=== PATIENT | male | born 1955 | race Caucasian/White ===

== ENCOUNTER 2024-11-10 11:16 | Outpatient (REF) | payer OTHER, SELFPAY ==
[2024-11-10 11:21] LABS: MANUAL DIFF FLAG NO
[2024-11-10 11:31] LABS: Basophils Percent Auto 0.7 % (0-2); Eosinophils Absolute Auto 0.1 X10*3/uL (0.0-0.4); Eosinophils Percent Auto 2.3 % (0-4); Hematocrit 34.3 % (42.0-52.0); Hemoglobin 10.8 g/dl (14.0-18.0); Imm Gran Abs Auto 0.01 X10*3/uL (0.00-0.03); Imm Gran Pct Auto 0.2 % (0.0-0.4); Lymphocytes Percent Auto 17.7 % (20-40); Mean Corpuscular HGB Conc 31.5 g/dl (31.0-36.0); Mean Corpuscular Hemoglobin 23.9 pg (27.0-33.0); Mean Corpuscular Volume 76.1 fL (80.0-98.0); Mean Platelet Volume 10.2 fL (9.4-12.4); Monocytes Absolute Auto 0.6 X10*3/uL (0.1-1.2); Monocytes Percent Auto 11.4 % (2-11); Neutrophils Absolute Auto 3.8 x10*3/uL (2.0-8.3); Neutrophils Percent Auto 67.7 % (45-73); Platelet Count 320 X10*3/uL (160-400); Red Blood Count 4.51 X10*6/uL (4.60-5.80); Red Cell Distribution Width 14.3 % (11.0-16.0); White Blood Count 5.6 X10*3/uL (4.8-10.8)
[2024-11-10 11:41] LABS: Estimated Average Glucose 151 mg/dL; Hemoglobin A1C 143.5164 umol/L; Hemoglobin A1c % 6.9 % (<6.0); Total Hemoglobin (HGBA1C) 2781.7839 umol/L
[2024-11-10 12:31] LABS: Parathyroid Hormone Intact 57.7 pg/mL (8.7-77.1)
--- OUTSIDE RECORDS SUMMARY | 2024-11-10 12:34 | XMS_ITS | Encounter Summary ---
Author Organization [facility], Address [address] [place] [phone] Phone Care Team Providers Care Director Of Entertainment Name Role Phone Tennille Linton NP Primary Care Provider + Encounter Details Date Type Department Care Team (Late st Contact Info) Description 05/26/2024 Documentation Only [facility], [address] [facility] [place] [address] [place] [address] [place] [phone] Social History Tobacco Use Types Packs/Day Years Used Date Smoking Tobacco: Never Alcohol Use Standard Drinks/Week Comments No 0 (1 standard drink = 0.6 oz pur e alcohol) Sex and Gender Information Value Date Recorded Sex Assigned at Not on file Legal Sex Male 4:34 PM EST Gender Identity Not on file Sexual Orientation Not on file documented as of this encounter Plan of Treatment Upcoming Encounters Date Type Department Care Team (Late st Contact Info) Description 11/17/2024 10:00 AM EDT Office Visit [facility] [address] [facility] [place] [address] Andrey Phan MD [address] [facility] [place] [address] 12/02/2024 11:30 AM EDT Office Visit [facility] [address] [facility] [place] [address] Andrey Phan MD [address] [facility] [place] [address] documented as of this encounter Visit Diagnoses Not on filedocumented in this encounter Care Teams Director Of Entertainment Relationship Specialty Start Date End Date Tennille Linton NP [address] [place] [phone] PCP - General Nurse Practitioner 08/07/23 documented as of this encounter
--- OUTSIDE RECORDS SUMMARY | 2024-11-10 12:34 | XMS_ITS | Encounter Summary ---
Author Organization [facility], Address [address] [place] [phone] Phone Care Team Providers Care Caster Operator Name Role Phone Tennille Linton NP Primary Care Provider + Encounter Details Date Type Department Care Team (Late st Contact Info) Description 04/21/2024 Documentation Only [facility], [address] [facility] [place] [address] [place] [address] [place] [phone] Social History Tobacco Use Types Packs/Day [...] Visit [facility] [address] [facility] [facility] [place] [address] Andrey Phan MD [address] [facility] [place] [address] 12/02/2024 11:30 AM EDT Office Visit [facility] [address] [facility] [place] [address] Andrey Phan MD [address] [facility] [place] [address] documented as of this encounter Visit Diagnoses Not on filedocumented in this encounter Care Teams Caster Operator Relationship Specialty Start Date End Date Tennille Linton NP [address] [place] [phone] PCP - General Nurse Practitioner 08/07/23 documented as of this encounter
--- OUTSIDE RECORDS SUMMARY | 2024-11-10 12:34 | XMS_ITS | Encounter Summary ---
Author Organization [facility], Address [address] [place] [phone] Phone Care Team Providers Care Shroud Line Tier Name Role Phone Tennille Linton NP Primary Care Provider + Encounter Details Date Type Department Care Team (Late st Contact Info) Description 04/27/2024 Documentation Only [facility], [address] [facility] [place] [address] [place] [address] [place] [phone] Social History Tobacco Use Types Packs/Day [...] Visit [facility] [address] [facility] [place] [address] Andrey Phan MD [address] [facility] [place] [address] 12/02/2024 11:30 AM EDT Office Visit [facility] [address] [facility] [place] [address] Andrey Phan MD [address] [facility] [place] [address] documented as of this encounter Visit Diagnoses Not on filedocumented in this encounter Care Teams Shroud Line Tier Relationship Specialty Start Date End Date Tennille Linton NP [address] [place] [phone] PCP - General Nurse Practitioner 08/07/23 documented as of this encounter
--- OUTSIDE RECORDS SUMMARY | 2024-11-10 12:34 | XMS_ITS | Encounter Summary ---
Author Organization [facility] [place], Address [address] [place] [phone] Phone Care Team Providers Care Logistics Engineering Manager Name Role Phone Tennille Linton NP Primary Care Provider + Encounter Details Date Type Department Care Team (Late st Contact Info) Description 06/04/2024 Documentation Only [facility], [address] [facility] [place] [address] [place] [address] [place] [phone] Social History Tobacco Use Types Packs/Day [...] Visit [facility] [place] [address] [facility] [place] [address] Andrey Phan MD [address] [facility] [place] [address] 12/02/2024 11:30 AM EDT Office Visit [facility] [address] [facility] [place] [address] Andrey Phan MD [address] [facility] [place] [address] documented as of this encounter Visit Diagnoses Not on filedocumented in this encounter Care Teams Logistics Engineering Manager Relationship Specialty Start Date End Date Tennille Linton NP [address] [place] [phone] PCP - General Nurse Practitioner 08/07/23 documented as of this encounter
--- OUTSIDE RECORDS SUMMARY | 2024-11-10 12:35 | XMS_ITS | Encounter Summary ---
Author Organization [facility], Address [address] [phone] Phone Care Team Providers Care Clinical Research Spec Name Role Phone Tennille Linton NP Primary Care Provider + Reason for Visit * Reason Comments Med Refill Encounter Details Date Type Department Care Team (Late st Contact Info) Description 06/13/2020 Refill [facility] [address] [place] [address] Denise Isbell PA Social History Tobacco Use Types Packs/Day Years [...] Visit [facility] [address] [place] [phone] Andrey Phan MD [address] [place] [address] [place] [phone] 12/02/2024 11:30 AM EDT Office Visit [facility] [place] [address] [place] [phone] Andrey Phan MD [address] [place] [address] documented as of this encounter Visit Diagnoses Not on filedocumented in this encounter Care Teams Clinical Research Spec Relationship Specialty Start Date End Date Tennille Linton NP [address] [place] [phone] PCP - General Nurse Practitioner 08/07/23 documented as of this encounter
--- OUTSIDE RECORDS SUMMARY | 2024-11-10 12:35 | XMS_ITS | Encounter Summary ---
Author Organization [facility], Address [address] [phone] Phone Care Team Providers Care Envelope Folder Name Role Phone Tennille Linton NP Primary Care Provider + Reason for Visit * Reason Comments Med Refill Encounter Details Date Type Department Care Team (Late st Contact Info) Description 06/08/2022 Refill [facility], [address] [facility] [place] [address] Andrey Phan MD [address] [place] [address] [place] [address] Social History Tobacco Use Types Packs/Day Years [...] Visit [facility] [address] [facility] [place] [address] Andrey Phan MD [address] [facility] [place] [address] 12/02/2024 11:30 AM EDT Office Visit [facility] [address] [place] [address] Andrey Phan MD [address] [place] [address] [place] [address] documented as of this encounter Visit Diagnoses Not on filedocumented in this encounter Care Teams Envelope Folder Relationship Specialty Start Date End Date Tennille Linton NP [address] [place] [phone] PCP - General Nurse Practitioner 08/07/23 documented as of this encounter
--- OUTSIDE RECORDS SUMMARY | 2024-11-10 12:35 | XMS_ITS | Encounter Summary ---
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; Unspecified sequelae of unspecified cerebrovascular disease; Kidney transplant status Social History Tobacco Use Types Packs/Day Years Used Date Smoking Tobacco: Never Assessed Sex and Gender Information Value Date Recorded Sex Assigned at Not on file Legal Sex Male 7:48 PM EST Gender Identity Not on file Sexual Orientation Not on file documented as of this encounter Plan of Treatment Not on file documented as of this encounter Procedures Procedure Name Priority Date/Time Associated Diagnosis Comments TACROLIMUS LEVEL Routine 05/06/2024 6:56 AM EST Heart failure, unspecified (CMS/HCC) Anemia, unspecified 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 Kidney transplant status COMPLETE BLOOD COUNT Routine 05/06/2024 6:56 AM EST Heart failure, unspecified (CMS/HCC) Anemia, unspecified 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 (months) ?Trough Level (ng/mL) Kidney ? Up to 3 ?7.0 - 20.0 ? >3 ? 5.0 - 15.0 Heart ?Up to 3 ?10.0 - 20.0 ? >3 ? 5.0 - 15.0 Liver ?Up to 12 ? 5.0 - 20.0 Tacrolimus determined by a LC-MS/MS procedure. If applicable, any drug confirmation testing reported here was developed and the performance characteristics determined by [facility]. This confirmation testing has not been cleared or approved by the FDA. The laboratory is regulated under CLIA as qualified to perform high-complexity testing. This test is used for patient testing purposes. It should not be regarded as investigational or for research. Test performed at [facility], [address], [place], [place] ??[address] ? [phone] Brittanie Horan MD, PhD - Joint Supervisor Blood Venous blood specimen / Unknown Venipuncture / Unknown 05/06/2024 6:56 AM EST 05/06/2024 9:44 AM EST Michelle Rucker MD LAB BLOOD ORDERABLES Fin al Result [facility] [address] [place] [address] * (ABNORMAL) Comprehensive metabolic panel (05/06/2024 6:56 AM EST) Sodium 137 133 - 145 mmol/L LAB CHEMISTRY METHOD 05/06/2024 12:[address] [facility] Potassium 4.6 3.5 - 5.5 mmol/L LAB CHEMISTRY METHOD 05/06/2024 12:[address] [facility] Chloride 105 96 - 110 mmol/L LAB CHEMISTRY METHOD 05/06/2024 12:[address] [facility] CO2 21 21 - 32 mmol/L LAB CHEMISTRY METHOD 05/06/2024 12:[address] [facility] Anion Gap 11 3 - 11 LAB CHEMISTRY METHOD 05/06/2024 12:[address] [facility] Glucose 246(H) 70 - 100 mg/dL LAB CHEMISTRY METHOD 05/06/2024 12:[address] [facility] BUN 24 5 - 25 mg/dL LAB CHEMISTRY METHOD 05/06/2024 12:[address] [facility] Creatinine 1.63(H) 0.70 - 1.30 mg/dL LAB CHEMISTRY METHOD 05/06/2024 12:[address] [facility] eGFR 46(L) >=60 mL/min/1. 73m2 LAB CHEMISTRY METHOD 05/06/2024 12:[address] [facility] Comment:Calculation based on the??Chronic Kidney Disease Epidemiology Collaboration (CKD-EPI) equation refit??without adjustment for race. BUN/Creatinine Ratio 14.7 LAB CHEMISTRY METHOD 05/06/2024 12:[address] [facility] Calcium 9.7 8.5 - 10.5 mg/dL LAB CHEMISTRY METHOD 05/06/2024 12:[address] [facility] AST (SGOT) 19 10 - 42 unit/L LAB CHEMISTRY METHOD 05/06/2024 12:[address] [facility] ALT (SGPT) 12 10 - 60 unit/L LAB CHEMISTRY METHOD 05/06/2024 12:[address] [facility] Alkaline Phosphatase 61 42 - 121 unit/L LAB CHEMISTRY METHOD 05/06/2024 12:[address] [facility] Total Protein 7.1 6.0 - 8.0 g/dL LAB CHEMISTRY METHOD 05/06/2024 12:[address] [facility] Albumin 3.3 3.2 - 5.0 g/dL LAB CHEMISTRY METHOD 05/06/2024 12:[address] [facility] Total Bilirubin 0.8 0.0 - 1.4 mg/dL LAB CHEMISTRY METHOD 05/06/2024 12:[address] [facility] Blood Venous blood specimen / Unknown Venipuncture / Unknown 05/06/2024 6:56 AM EST 05/06/2024 9:44 AM EST us Michelle Rucker MD LAB BLOOD ORDERABLES Fin al Result [facility] [address] [place] [address], * (ABNORMAL) Complete blood count (05/06/2024 6:56 AM EST) WBC 13.5(H) 4.8 - 10.8 K/mcL LAB HEMETOLOGY METHOD 05/06/2024 11:[address] [facility] RBC 4.50 4.50 - 5.50 M/mcL LAB HEMETOLOGY METHOD 05/06/2024 11:[address] [facility] Hemoglobin 12.4(L) 13.5 - 17.5 g/dL LAB HEMETOLOGY METHOD 05/06/2024 11:[address] [facility] Hematocrit 37.8(L) 42.0 - 54.0 % LAB HEMETOLOGY METHOD 05/06/2024 11:[address] [facility] MCV 83.8 79.0 - 98.0 FL LAB HEMETOLOGY METHOD 05/06/2024 11:[address] [facility] MCH 27.5 27.0 - 32.0 pcg LAB HEMETOLOGY METHOD 05/06/2024 11:[address] [facility] MCHC 32.8 32.0 - 37.0 g/dL LAB HEMETOLOGY METHOD 05/06/2024 11:[address] [facility] RDW 12.9 11.0 - 15.0 % LAB HEMETOLOGY METHOD 05/06/2024 11:[address] [facility] Platelets 248 130 - 400 K/mcL LAB HEMETOLOGY METHOD 05/06/2024 11:[address] [facility] MPV 11.0 7.0 - 11.0 FL LAB HEMETOLOGY METHOD 05/06/2024 11:[address] [facility] NRBC 0.0 <1.0 % LAB HEMETOLOGY METHOD 05/06/2024 11:[address] [facility] NRBC Absolute 0.00 <0.10 K/mcL LAB HEMETOLOGY METHOD 05/06/2024 11:[address] 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 Diff Rule-Out Infection 08/14/2024 08/13/2024 0 08/14/2024 11:06 AM EST documented as of this encounter Care Teams Garment Examiner Relationship Specialty Start Date End Date Michelle Rucker MD [address] [place] [phone] PCP - General Family Medicine 05/06/24 documented as of this encounter
--- OUTSIDE RECORDS SUMMARY | 2024-11-10 12:35 | XMS_ITS | Encounter Summary ---
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 Social History Tobacco Use Types Packs/Day Years [...] Procedure Name Priority Date/Time Associated Diagnosis Comments COMPLETE BLOOD COUNT Routine 05/08/2024 6:16 AM EST Kidney transplant status 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 COMPREHENSIVE METABOLIC PANEL Routine 05/08/2024 6:16 AM EST Kidney transplant status 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 documented in this encounter Results * (ABNORMAL) Comprehensive metabolic panel (05/08/2024 6:16 AM EST) Sodium 136 133 - 145 mmol/L LAB CHEMISTRY METHOD 05/08/2024 9:21 AM EST [facility] Potassium 4.4 3.5 - 5.5 mmol/L LAB CHEMISTRY METHOD 05/08/2024 9:21 AM [facility] Chloride 105 96 - 110 mmol/L LAB CHEMISTRY METHOD 05/08/2024 9:21 AM [facility] CO2 23 21 - 32 mmol/L LAB CHEMISTRY METHOD 05/08/2024 9:21 AM [facility] Anion Gap 8 3 - 11 LAB CHEMISTRY METHOD 05/08/2024 9:21 AM [facility] Glucose 183(H) 70 - 100 mg/dL LAB CHEMISTRY METHOD 05/08/2024 9:21 AM [facility] BUN 27(H) 5 - 25 mg/dL LAB CHEMISTRY METHOD 05/08/2024 9:21 AM [facility] Creatinine 1.82(H) 0.70 - 1.30 mg/dL LAB CHEMISTRY METHOD 05/08/2024 9:21 AM [facility] eGFR 40(L) >=60 mL/min/1. 73m2 LAB CHEMISTRY METHOD 05/08/2024 9:21 AM [facility] Comment:Calculation based on the??Chronic Kidney Disease Epidemiology Collaboration (CKD-EPI) equation refit??without adjustment for race. BUN/Creatinine Ratio 14.8 LAB CHEMISTRY METHOD 05/08/2024 9:21 AM [facility] Calcium 9.6 8.5 - 10.5 mg/dL LAB CHEMISTRY METHOD 05/08/2024 9:21 AM [facility] AST (SGOT) 20 10 - 42 unit/L LAB CHEMISTRY METHOD 05/08/2024 9:21 AM [facility] ALT (SGPT) 10 10 - 60 unit/L LAB CHEMISTRY METHOD 05/08/2024 9:21 AM [facility] Alkaline Phosphatase 52 42 - 121 unit/L LAB CHEMISTRY METHOD 05/08/2024 9:21 AM [facility] Total Protein 6.4 6.0 - 8.0 g/dL LAB CHEMISTRY METHOD 05/08/2024 9:21 AM [facility] Albumin 2.7(L) 3.2 - 5.0 g/dL LAB CHEMISTRY METHOD 05/08/2024 9:21 AM [facility] Total Bilirubin 0.5 0.0 - 1.4 mg/dL LAB CHEMISTRY METHOD 05/08/2024 9:21 AM [facility] Blood Venous blood specimen / Unknown Venipuncture / Unknown 05/08/2024 6:16 AM EST 05/08/2024 8:37 AM EST us Michelle Rucker MD LAB BLOOD ORDERABLES Fin al Result [facility] [address] [place] [address], * (ABNORMAL) Complete blood count (05/08/2024 6:16 AM EST) WBC 9.8 4.8 - 10.8 K/mcL LAB HEMETOLOGY METHOD 05/08/2024 8:53 AM [facility] RBC 4.00(L) 4.50 - 5.50 M/mcL LAB HEMETOLOGY METHOD 05/08/2024 8:53 AM [facility] Hemoglobin 11.0(L) 13.5 - 17.5 g/dL LAB HEMETOLOGY METHOD 05/08/2024 8:53 AM [facility] Hematocrit 34.0(L) 42.0 - 54.0 % LAB HEMETOLOGY METHOD 05/08/2024 8:53 AM [facility] MCV 85.4 79.0 - 98.0 FL LAB HEMETOLOGY METHOD 05/08/2024 8:53 AM [facility] MCH 27.6 27.0 - 32.0 pcg LAB HEMETOLOGY METHOD 05/08/2024 8:53 AM EST [facility] MCHC 32.4 32.0 - 37.0 g/dL LAB HEMETOLOGY METHOD 05/08/2024 8:53 AM EST [facility] RDW 12.8 11.0 - 15.0 % LAB HEMETOLOGY METHOD 05/08/2024 8:53 AM EST [facility] Platelets 235 130 - 400 K/mcL LAB HEMETOLOGY METHOD 05/08/2024 8:53 AM EST [facility] MPV 10.8 7.0 - 11.0 FL LAB HEMETOLOGY METHOD 05/08/2024 8:53 AM EST [facility] NRBC 0.0 <1.0 % LAB HEMETOLOGY METHOD 05/08/2024 8:53 AM EST [facility] NRBC Absolute 0.00 <0.10 K/mcL LAB HEMETOLOGY METHOD 05/08/2024 8:53 AM EST [facility] Blood Venous blood specimen / Unknown Venipuncture / Unknown 05/08/2024 6:16 AM EST 05/08/2024 8:37 AM EST us Michelle Rucker MD LAB BLOOD ORDERABLES Fin al Result [facility] [address] [place] [address], documented in this encounter Visit Diagnoses Diagnosis Kidney transplant status 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 Diff Rule-Out Infection 08/14/2024 08/13/2024 0 08/14/2024 11:06 AM EST documented as of this encounter Care Teams General Engineering Teacher Relationship Specialty Start Date End Date Michelle Rucker MD [address] [phone] PCP - General Family Medicine 11/13/24 documented as of this encounter
--- OUTSIDE RECORDS SUMMARY | 2024-11-10 12:35 | XMS_ITS | Encounter Summary ---
Author Organization [facility] [place], Address [address] [place] [phone] Phone Care Team Providers Care Welt Butter Hand Name Role Phone Tennille Linton NP Primary Care Provider + Encounter Details Date Type Department Care Team (Late st Contact Info) Description 10/29/2024 Documentation Only [facility], [address] [facility] [facility] [address] [address] [place] [address] [place] [phone] Social History Tobacco Use Types Packs/Day [...] Visit [facility] [address] [place] [address] Andrey Phan MD [address] [facility] [place] [address] 12/02/2024 11:30 AM EDT Office Visit [facility] [address] [place] [address] Andrey Phan MD [address] [facility] [place] [address] documented as of this encounter Visit Diagnoses Not on filedocumented in this encounter Care Teams Welt Butter Hand Relationship Specialty Start Date End Date Tennille Linton NP [address] [place] [phone] PCP - General Nurse Practitioner 08/07/23 documented as of this encounter
--- OUTSIDE RECORDS SUMMARY | 2024-11-10 12:35 | XMS_ITS | Encounter Summary ---
Author Organization [facility], Address [address] [place] [phone] Phone Care Team Providers Care Croze Cutter Helper Name Role Phone Tennille Linton NP Primary Care Provider + Encounter Details Date Type Department Care Team (Late st Contact Info) Description 08/13/2023 Documentation Only [facility], [address] [place] [address] [place] [address] [place] [phone] Social History Tobacco Use Types Packs/Day [...] Visit [facility] [address] [place] [address] Andrey Phan MD [address] [facility] [place] [address] 12/02/2024 11:30 AM EDT Office Visit [facility] [address] [place] [address] Andrey Phan MD [address] [facility] [place] [address] documented as of this encounter Visit Diagnoses Not on filedocumented in this encounter Care Teams Croze Cutter Helper Relationship Specialty Start Date End Date Tennille Linton NP [address] [place] [phone] PCP - General Nurse Practitioner 08/07/23 documented as of this encounter
--- OUTSIDE RECORDS SUMMARY | 2024-11-10 12:35 | XMS_ITS | Encounter Summary ---
Author Organization [facility], Address [address] [phone] Phone Care Team Providers Care Data Processing Equipment Repairer Name Role Phone Tennille Linton NP Primary Care Provider + Reason for Visit * Reason Comments Med Refill Encounter Details Date Type Department Care Team (Late st Contact Info) Description 08/13/2022 Refill [facility] [address] [place] [address] Andrey Phan MD [address] [place] [address] [place] [address] Social History Tobacco Use Types [...] Visit [facility] [address] [place] [address] Andrey Phan MD [address] [place] [address] [place] [address] 12/02/2024 11:30 AM EDT Office Visit [facility] [address] [place] [address] Andrey Phan MD [address] [place] [address] [place] [address] documented as of this encounter Visit Diagnoses Not on filedocumented in this encounter Care Teams Data Processing Equipment Repairer Relationship Specialty Start Date End Date Tennille Linton NP [address] [place] [phone] PCP - General Nurse Practitioner 08/07/23 documented as of this encounter
--- OUTSIDE RECORDS SUMMARY | 2024-11-10 12:35 | XMS_ITS | Encounter Summary ---
Author Organization [facility] Address [address] [place] [address] Phone Care Team Providers Care Geospatial Imagery Intelligence Analyst Name Role Phone Tennille Linton NP Primary Care Provider + Reason for Visit * Reason Comments Med Refill Encounter Details Date Type Department Care Team (Late st Contact Info) Description 04/24/2023 Refill [facility] [place], [address] [place] [address] Denise Isbell PA Social History [...] Visit [facility] [address] [place] [phone] Andrey Phan MD [address] [facility] [place] [phone] 12/02/2024 11:30 AM EDT Office Visit [facility] [address] [place] [phone] Andrey Phan MD [address] [place] [address] documented as of this encounter Visit Diagnoses Not on filedocumented in this encounter Care Teams Geospatial Imagery Intelligence Analyst Relationship Specialty Start Date End Date Tennille Linton NP [address] [place] [phone] PCP - General Nurse Practitioner 08/07/23 documented as of this encounter
--- OUTSIDE RECORDS SUMMARY | 2024-11-10 12:35 | XMS_ITS | Encounter Summary ---
Author Organization [facility], Address [address] [phone] Phone Care Team Providers Care Bench Machine Operator Name Role Phone Tennille Linton NP Primary Care Provider + Reason for Visit * Reason Comments Med Refill Encounter Details Date Type Department Care Team (Late st Contact Info) Description 12/04/2022 Refill [facility], [address] [facility] [address] Andrey Phan MD [address] [place] [address] [place] [address] Social History Tobacco Use Types [...] Visit [facility] [address] [facility] [place] [address] Andrey Phan MD [address] [facility] [place] [address] 12/02/2024 11:30 AM EDT Office Visit [facility] [address] [place] [address] Andrey Phan MD [address] [place] [address] [place] [address] documented as of this encounter Visit Diagnoses Not on filedocumented in this encounter Care Teams Bench Machine Operator Relationship Specialty Start Date End Date Tennille Linton NP [address] [place] [phone] PCP - General Nurse Practitioner 08/07/23 documented as of this encounter
--- OUTSIDE RECORDS SUMMARY | 2024-11-10 12:35 | XMS_ITS | Encounter Summary ---
Author Organization [facility] [place], Address [address] [place] [phone] Phone Care Team Providers Care Boat Crew Deck Hand Name Role Phone Tennille Linton NP Primary Care Provider + Encounter Details Date Type Department Care Team (Late st Contact Info) Description 03/26/2024 Documentation Only [facility] [place], [address] [facility] [place] [address] [place] [address] [place] [phone] Social History Tobacco Use Types Packs/Day [...] Visit [facility] [address] [facility] [facility] [place] [address] Andrey Phan MD [address] [facility] [place] [address] 12/02/2024 11:30 AM EDT Office Visit [facility] [address] [facility] [place] [address] Andrey Phan MD [address] [facility] [place] [address] documented as of this encounter Visit Diagnoses Not on filedocumented in this encounter Care Teams Boat Crew Deck Hand Relationship Specialty Start Date End Date Tennille Linton NP [address] [place] [phone] PCP - General Nurse Practitioner 08/07/23 documented as of this encounter
--- OUTSIDE RECORDS SUMMARY | 2024-11-10 12:35 | XMS_ITS | Encounter Summary ---
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; Heart failure, unspecified (CMS/HCC V24, CMS/HCC V28); Unspecified sequelae of unspecified cerebrovascular disease; Kidney [...] Date/Time Associated Diagnosis Comments TACROLIMUS LEVEL Routine 05/28/2024 7:04 AM EST Anemia, unspecified 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 Heart failure, unspecified (CMS/HCC) Unspecified sequelae of unspecified cerebrovascular disease Kidney transplant status COMPLETE BLOOD COUNT Routine 05/28/2024 7:04 AM EST Anemia, unspecified 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 Heart failure, unspecified (CMS/HCC) Unspecified sequelae of unspecified cerebrovascular disease Kidney transplant status COMPREHENSIVE METABOLIC PANEL Routine 05/28/2024 7:04 AM EST Anemia, unspecified 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 This confirmation testing has not been cleared or approved by the FDA. The laboratory is regulated under CLIA as qualified to perform high-complexity testing. This test is used for patient testing purposes. It should not be regarded as investigational or for research. Test performed at [facility], [address], [place], [place] ??[address] ? [phone] Brittanie Horan MD, PhD - Roving Frame Tender Blood Venous blood specimen / Unknown Venipuncture / Unknown 05/28/2024 7:04 AM EST 05/28/2024 9:00 AM EST Michelle Rucker MD LAB BLOOD ORDERABLES Fin al Result [facility] [address] [place] [address] * (ABNORMAL) Comprehensive metabolic panel (05/28/2024 7:04 AM EST) Sodium 140 133 - 145 mmol/L LAB CHEMISTRY METHOD 05/28/2024 10:39 AM [facility] Potassium 4.5 3.5 - 5.5 mmol/L LAB CHEMISTRY METHOD 05/28/2024 10:39 AM [facility] Chloride 110 96 - 110 mmol/L LAB CHEMISTRY METHOD 05/28/2024 10:39 AM [facility] CO2 22 21 - 32 mmol/L LAB CHEMISTRY METHOD 05/28/2024 10:39 AM [facility] Anion Gap 8 3 - 11 LAB CHEMISTRY METHOD 05/28/2024 10:39 AM [facility] Glucose 104(H) 70 - 100 mg/dL LAB CHEMISTRY METHOD 05/28/2024 10:39 AM [facility] BUN 31(H) 5 - 25 mg/dL LAB CHEMISTRY METHOD 05/28/2024 10:39 AM [facility] Creatinine 2.24(H) 0.70 - 1.30 mg/dL LAB CHEMISTRY METHOD 05/28/2024 10:39 AM [facility] eGFR 32(L) >=60 mL/min/1. 73m2 LAB CHEMISTRY METHOD 05/28/2024 10:39 AM [facility] Comment:Calculation based on the??Chronic Kidney Disease Epidemiology Collaboration (CKD-EPI) equation refit??without adjustment for race. BUN/Creatinine Ratio 13.8 LAB CHEMISTRY METHOD 05/28/2024 10:39 AM [facility] Calcium 9.8 8.5 - 10.5 mg/dL LAB CHEMISTRY METHOD 05/28/2024 10:39 AM [facility] AST (SGOT) 21 10 - 42 unit/L LAB CHEMISTRY METHOD 05/28/2024 10:39 AM [facility] ALT (SGPT) 18 10 - 60 unit/L LAB CHEMISTRY METHOD 05/28/2024 10:39 AM [facility] Alkaline Phosphatase 56 42 - 121 unit/L LAB CHEMISTRY METHOD 05/28/2024 10:39 AM [facility] Total Protein 6.6 6.0 - 8.0 g/dL LAB CHEMISTRY METHOD 05/28/2024 10:39 AM [facility] Albumin 3.1(L) 3.2 - 5.0 g/dL LAB CHEMISTRY METHOD 05/28/2024 10:39 AM [facility] Total Bilirubin 0.4 0.0 - 1.4 mg/dL LAB CHEMISTRY METHOD 05/28/2024 10:39 AM [facility] Blood Venous blood specimen / Unknown Venipuncture / Unknown 05/28/2024 7:04 AM EST 05/28/2024 9:00 AM EST us Michelle Rucker MD LAB BLOOD ORDERABLES Fin al Result [facility] [address] [place] [address], * (ABNORMAL) Complete blood count (05/28/2024 7:04 AM EST) WBC 6.9 4.8 - 10.8 K/mcL LAB HEMETOLOGY METHOD 05/28/2024 10:12 AM [facility] RBC 4.60 4.50 - 5.50 M/mcL LAB HEMETOLOGY METHOD 05/28/2024 10:12 AM [facility] Hemoglobin 11.9(L) 13.5 - 17.5 g/dL LAB HEMETOLOGY METHOD 05/28/2024 10:12 AM [facility] Hematocrit 37.5(L) 42.0 - 54.0 % LAB HEMETOLOGY METHOD 05/28/2024 10:12 AM [facility] MCV 82.4 79.0 - 98.0 FL LAB HEMETOLOGY METHOD 05/28/2024 10:12 AM [facility] MCH 26.2(L) 27.0 - 32.0 pcg LAB HEMETOLOGY METHOD 05/28/2024 10:12 AM [facility] MCHC 31.7(L) 32.0 - 37.0 g/dL LAB HEMETOLOGY METHOD 05/28/2024 10:12 AM [facility] RDW 13.2 11.0 - 15.0 % LAB HEMETOLOGY METHOD 05/28/2024 10:12 AM [facility] Platelets 236 130 - 400 K/mcL LAB HEMETOLOGY METHOD 05/28/2024 10:12 AM [facility] MPV 10.7 7.0 - 11.0 FL LAB HEMETOLOGY METHOD 05/28/2024 10:12 AM [facility] NRBC 0.0 <1.0 % LAB HEMETOLOGY METHOD 05/28/2024 10:12 AM [facility] NRBC Absolute 0.00 <0.10 K/mcL LAB HEMETOLOGY METHOD 05/28/2024 10:12 AM [facility] Blood Venous blood specimen / Unknown Venipuncture / Unknown 05/28/2024 7:04 AM EST 05/28/2024 9:00 AM EST Michelle Rucker MD LAB BLOOD ORDERABLES Fin al Result 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 Diff Rule-Out Infection 08/14/2024 08/13/2024 0 08/14/2024 11:06 AM EST documented as of this encounter Care Teams Child Welfare Caseworker Relationship Specialty Start Date End Date Michelle Rucker MD [address] [place] [phone] PCP - General Family Medicine 05/06/24 documented as of this encounter
--- OUTSIDE RECORDS SUMMARY | 2024-11-10 12:35 | XMS_ITS | Encounter Summary ---
Author Organization [facility], Address [address] [place] [phone] Phone Care Team Providers Care Cardiopulmonary Supervisor Name Role Phone Tennille Linton NP Primary Care Provider + Encounter Details Date Type Department Care Team (Late st Contact Info) Description 04/22/2024 Documentation Only [facility], [address] [facility] [place] [address] [place] [address] [place] [phone] Social History Tobacco Use Types Packs/Day [...] Visit [facility] [address] [facility] [place] [address] Andrey Phan MD [address] [facility] [place] [address] 12/02/2024 11:30 AM EDT Office Visit [facility] [address] [facility] [place] [address] Andrey Phan MD [address] [facility] [place] [address] documented as of this encounter Visit Diagnoses Not on filedocumented in this encounter Care Teams Cardiopulmonary Supervisor Relationship Specialty Start Date End Date Tennille Linton NP [address] [place] [phone] PCP - General Nurse Practitioner 08/07/23 documented as of this encounter
--- OUTSIDE RECORDS SUMMARY | 2024-11-10 12:35 | XMS_ITS | Encounter Summary ---
Author Organization [facility] [place], Address [address] [address] Phone Care Team Providers Care Parimutuel Ticket Cashier Name Role Phone Tennille Linotn NP Primary Care Provider + Reason for Visit * Reason Comments Med Refill Encounter Details Date Type Department Care Team (Late st Contact Info) Description 07/23/2022 Refill [facility] [address] [place] [address] Andrey Phan MD [address] [place] [address] [place] [address] Social History Tobacco Use Types [...] Visit [facility] [address] [place] [address] Andrey Phan MD [address] [place] [address] [place] [address] 12/02/2024 11:30 AM EDT Office Visit [facility] [address] [place] [address] Andrey Phan MD [address] [place] [address] [place] [address] documented as of this encounter Visit Diagnoses Not on filedocumented in this encounter Care Teams Parimutuel Ticket Cashier Relationship Specialty Start Date End Date Tennille Linton NP [address] [place] [phone] PCP - General Nurse Practitioner 08/07/23 documented as of this encounter
--- OUTSIDE RECORDS SUMMARY | 2024-11-10 12:35 | XMS_ITS | Clinical Summary ---
Author Organization [facility] [place], Address [address] [place] [address] Phone Care Team Providers Care Manager Support Name Role Phone Tennille Linton NP Primary Care Provider + Allergies Active Allergy Reactions Criticality Noted Date Comments Hydromorphone Other (see comments) 08/12/2019 Oxycodone-Acetaminophen 06/29/2019 Phenytoin 06/29/2019 Medications aspirin (ST MAGNO) 81 MG EC tablet Take 1 tablet by mouth 1 (one) time each day Active glucose blood test strip 1 strip by Other route 11/23/19 18 Active Continuous Blood Gluc Licensed Therapist (DEXCOM G6 AIRPORT OPERATIONS SUPERVISOR) device UTD TO MONITOR BS 08/24/19 20 Active Continuous Blood Gluc Sensor (DEXCOM G6 SENSOR) misc UTD TO MONITOR BS CHANGE EVERY 10 DAYS 10/01/19 20 Active Continuous Blood Gluc Transmit (DEXCOM G6 TRANSMITTER) [facility] [place] UTD TO MONITOR BS. CHANGE EVERY 90 DAYS 09/30/19 20 Active BD PEN NEEDLE BASSAM U/F 32G X 4 MM [facility] [place] USE TO INJECT INSULIN ONCE DAILY 08/19/19 20 Active B-D ULTRAFINE III SHORT PEN 31G X 8 MM [facility] 09/08/19 20 Active rosuvastatin (CRESTOR) 40 MG tablet TAKE ONE TABLET BY MOUTH ONCE DAILY 90 tablet 3 05/15/20 23 Active Insulin Aspart FlexPen 100 UNIT/ML solution pen-injector Inject 7 Units under the skin in the morning and 7 Units at noon and 7 Units in the evening. Inject before meals. 10/07/19 Active tamsulosin (FLOMAX) 0.4 MG 24 hr capsule Take 1 capsule (0.4 mg total) by mouth 1 (one) time each day 10/07/19 25 Active Insulin Degludec FlexTouch 100 UNIT/ML solution pen-injector Inject 28 Units under the skin 1 (one) time each day 10/07/19 Active Omeprazole-Sodiu m Bicarbonate (Konvomep) 2-84 MG/ML reconstituted suspension Take 20 mL by mouth 1 (one) time each day 10/07/19 Active Cholecalciferol (Vitamin D3) 10 MCG (400 UNIT) capsule Take 400 Units by mouth 1 (one) time each day 10/07/19 Active sertraline (Zoloft) 20 MG/ML concentrated solution Take 5 mL (100 mg total) by mouth 1 (one) time each day 10/07/19 Active tacrolimus (PROGRAF) 1 MG capsule Take 2 capsules (2 mg total) by mouth in the morning and 2 capsules (2 mg total) in the evening. 10/24/19 Active LORazepam (Ativan) 0.5 MG tablet Take 1 tablet (0.5 mg total) by mouth every night 30 tablet 11/11/19 Active LORazepam (Ativan) 0.5 MG tablet Take 1 tablet (0.5 mg total) by mouth every night 10/07/19 025 Discontinued(Re order (does not appear on AVS)) tacrolimus (PROGRAF) 1.0 mg/ml oral suspension 4 mg by Per G Tube route in the morning and 4 mg in the evening. 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 06/29/2019 Stage 3b chronic kidney disease 06/29/2019 Overview (06/27/2020): Update for Diagnosis Load History of immunosuppressive therapy 06/29/2019 Kidney replaced by transplant 06/29/2019 Resolved Problems Problem Noted Date Diagnosed Date Resolved Date Stage 3a chronic kidney disease 05/30/2021 09/25/2021 Essential hypertension 08/11/201909/26 Encounters Date Type Department Care Team Description 11/06/2024 Refill [facility] [address] [place] [address] Zeinab Walker 11/03/2024 Telephone [facility] [address] [place] [address] Annika Mcclure MA 10/30/2024 Telephone [facility] [address] [place] [address] Danica Price, supervisor labor gang f/u 10/29/2024 Documentation Only [facility] [address] [place] [address] Annika Mcclure MA 10/23/2024 Telephone [facility] [address] [place] [address] Danica Pirce, CARLOS tacro dose adjustment 10/22/2024 Telephone [facility] [address] [place] [address] Annika Mcclure MA 10/15/2024 Telephone [facility] [address] [place] [address] Danica Price, RN tacro dose change 10/09/2024 Telephone [facility] [address] [place] [address] Danica Priec RN tacro dose change 10/09/2024 Telephone [facility] [address] [place] [address] Annika Mcclure MA 10/06/2024 10:00 AM EDT Office Visit [facility] [address] [place] [address] Andrey Phan MD Kidney replaced by transplant (Primary Dx); History of immunosuppressive therapy; Stage 3b chronic kidney disease (HCC); 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) 10/06/2024 Documentation Only [facility] [address] [place] [address] Annika Mcclure MA 10/05/2024 Documentation Only [facility] [address] [place] [address] Annika Mcclure MA from Last 3 Months Immunizations Immunization Administration Dates Next Due H1N1 Inj 07/26/2009 Hepatitis B 01/11/2015,08/04/2014,07/07/2014 Influenza Split High Dose Pr eservative Free IM 05/02/2016,05/16/2015 Influenza, Quadrivalent, Pre servative Free 03/17/2020,04/03/2019 Influenza, Unspecified 04/07/2021,2017,02/03/2017,04/19,03/18/2012 Pfizer SARS-COV-2 03/02/2021,08/12/2020,07/12/19 21 Pneumococcal Conjugate 13-Valent 09/22/2015,090 01/2015,02/05/2015 Pneumococcal Polysaccharide 01/16/2017, 0 Tdap 02/03/2017 Family History Medical History Relation Comments Cancer Father Lymphoma and oth er Gout Father Heart disease Father Hypertension Father Dementia Mother Cancer Sibling 1 4 SIBLINGS Hypertension Sibling 1 Cancer Sibling 2 sisters Hypertension Sibling 3 sister Relation Status Comments Father Mother Sibling 1 Sibling 2 Sibling 3 Social History Tobacco Use Types Packs/Day Years Used Date Smoking Tobacco: Never Tobacco Cessation:Counseling Given: Not Answered Alcohol Use Standard Drinks/Week Comments No 0 (1 standard drink = 0.6 oz pur e alcohol) Sex and Gender Information Value Date Recorded Sex Assigned at Not on file Legal Sex Male 4:34 PM EST Gender Identity Not on file Sexual Orientation Not on file Last Filed Vital Signs Vital Sign Reading Time Taken Comments Blood Pressure 147/65 10/06/2024 10:16 AM EDT Pulse 87 10/06/2024 10:16 AM EDT Temperature - - Respiratory Rate 16 04/10/2019 12:00 PM EDT Oxygen Saturation - - Inhaled Oxygen Concentration - - Weight 78.9 kg (174 lb) 02/05/2024 9:32 AM EDT Height 170.2 cm (5' 7 ) 02/05/2024 9:32 AM EDT Body Mass Index 27.25 02/05/2024 9:32 AM EDT Plan of Treatment Upcoming Encounters Date Type Department Care Team (Late st Contact Info) Description 11/17/2024 10:00 AM EDT [facility] [address] [place] [address] Andrey Phan MD [address] [place] [address] [place] [phone] 12/02/2024 11:30 AM EDT Office [facility] [address] [place] [address] Andrey Phan MD [address] [place] [address] [place] [address] Health Maintenance Due Date Last Done Comments Diabetes: Ophthalmology Exam 07/09/2019 Diabetes: Pedal Pulse Checked 07/09/2019 Diabetes: Sensory Foot Exam 07/09/2019 Diabetes: Visual Foot Exam 07/09/2019 Colonoscopy (Post-Transplant Patient) 02/03/2020 Pneumococcal Vaccine: 50+ Years (4 of 4 - PCV20 or PCV21) 01/16/2022 01/16/2017, 09/22/2015, 03/01/2015, Additional history exists Diabetes: Hemoglobin A1C 01/01/2025 025, 08/10/2024, 08/07/2024, Additional history exists Influenza Vaccine (Season Ended) 2025 04/07/2021, 03/17/2020, 04/03/2019, Additional history exists Hepatitis B Vaccine Aged Out 01/11/2015, 08/04/2014, 07/07/2014 No longer eligible based on patient's age to complete this topic Pneumococcal Vaccine: Peds (0 to 5 Years) and At-Risk Patients (6 to 49 Years) Discontinued 01/16/2017, 09/22/2015, 03/01/2015, Additional history exists Procedures Procedure Name Priority Date/Time Associated Diagnosis Comments HEMOGLOBIN A1C Routine 02/04/2024 10:47 AM EDT Stage 3b chronic kidney disease (HCC) History of immunosuppressive therapy 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 Prediabetes: 5.7 - 6.4 ? Diabetes: >6.4 ? Glycemic control for adults with diabetes: <7.0 Blood specimen (specimen) Venous blood / Unknown 02/04/2024 10:47 AM EDT 02/04/2024 Denise LANTIGUA LAB BLOOD ORDERABLES Final Re sult [facility] Elie [address] [place] [address] from Last 3 Months or Most Recently Relevant to Health Maintenance Insurance [employer] Dual SNP ([id number]) [place] [id number] Advance Directives Healthcare Agents on File Name Relationship Healthcare Agent [facility] Communication Nataliia Hartman [facility] Health Care Agent Care Teams Manager Support Relationship Specialty Start Date End Date Tennille Linton [facility] [phone] PCP - General Nurse Practitioner 08/07/23
--- OUTSIDE RECORDS SUMMARY | 2024-11-10 12:35 | XMS_ITS | Encounter Summary ---
Author Organization [facility] [place], Address [address] [address] Phone Care Team Providers Care House Repairer Name Role Phone Tennilel Linton NP Primary Care Provider + Reason for Visit * Reason Comments Med Refill Encounter Details Date Type Department Care Team (Late st Contact Info) Description 09/18/2022 Refill [facility] [address] [place] [address] Andrey Phan MD [address] [place] [address] [place] [address] Social History Tobacco Use Types [...] Visit [facility] [address] [place] [address] Andrey Phan MD [address] [place] [address] [place] [address] 12/02/2024 11:30 AM EDT Office Visit [facility] [address] [place] [address] Andrey Phan MD [address] [place] [address] [place] [address] documented as of this encounter Visit Diagnoses Not on filedocumented in this encounter Care Teams House Repairer Relationship Specialty Start Date End Date Tennille Linton NP [address] [place] [phone] PCP - General Nurse Practitioner 08/07/23 documented as of this encounter
--- OUTSIDE RECORDS SUMMARY | 2024-11-10 12:35 | XMS_ITS | Encounter Summary ---
Author Organization [facility] Address [address] [place] [address] Care Team Providers Care Telegraph Installer Name Role Phone Michelle Rucker MD Primary Care Provider + Encounter Details Date Type Department Care Team (Late st Contact Info) Description 05/08/2024 Lab Requisition [facility] Main Lab [address] 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 This confirmation testing has not been cleared or approved by the FDA. The laboratory is regulated under CLIA as qualified to perform high-complexity testing. This test is used for patient testing purposes. It should not be regarded as investigational or for research. Test performed at [facility], [address], [place], [place] ??[address] ? [phone] Brittanie Horan MD, PhD - Body Bumper Blood Venous blood specimen / Unknown Venipuncture / Unknown 05/11/2024 6:37 AM EST 05/11/2024 9:28 AM EST Michelle Rucker MD LAB BLOOD ORDERABLES Fin al Result Performing Organization Address City/State/[facility] Phone Number [facility] [address] [place] [address] * (ABNORMAL) Comprehensive metabolic panel (05/11/2024 6:37 AM EST) Sodium 140 133 - 145 mmol/L LAB CHEMISTRY METHOD 05/11/2024 10:49 AM [facility] Potassium 4.5 3.5 - 5.5 mmol/L LAB CHEMISTRY METHOD 05/11/2024 10:49 AM [facility] Chloride 106 96 - 110 mmol/L LAB CHEMISTRY METHOD 05/11/2024 10:49 AM [facility] CO2 27 21 - 32 mmol/L LAB CHEMISTRY METHOD 05/11/2024 10:49 AM [facility] Anion Gap 7 3 - 11 LAB CHEMISTRY METHOD 05/11/2024 10:49 AM [facility] Glucose 113(H) 70 - 100 mg/dL LAB CHEMISTRY METHOD 05/11/2024 10:49 AM [facility] BUN 32(H) 5 - 25 mg/dL LAB CHEMISTRY METHOD 05/11/2024 10:49 AM [facility] Creatinine 2.00(H) 0.70 - 1.30 mg/dL LAB CHEMISTRY METHOD 05/11/2024 10:49 AM [facility] eGFR 36(L) >=60 mL/min/1. 73m2 LAB CHEMISTRY METHOD 05/11/2024 10:49 AM [facility] Comment:Calculation based on the??Chronic Kidney Disease Epidemiology Collaboration (CKD-EPI) equation refit??without adjustment for race. BUN/Creatinine Ratio 16.0 LAB CHEMISTRY METHOD 05/11/2024 10:49 AM [facility] Calcium 10.0 8.5 - 10.5 mg/dL LAB CHEMISTRY METHOD 05/11/2024 10:49 AM [facility] AST (SGOT) 18 10 - 42 unit/L LAB CHEMISTRY METHOD 05/11/2024 10:49 AM EST [facility] ALT (SGPT) 14 10 - 60 unit/L LAB CHEMISTRY METHOD 05/11/2024 10:49 AM EST [facility] Alkaline Phosphatase 56 42 - 121 unit/L LAB CHEMISTRY METHOD 05/11/2024 10:49 AM EST [facility] Total Protein 6.9 6.0 - 8.0 g/dL LAB CHEMISTRY METHOD 05/11/2024 10:49 AM EST [facility] Albumin 2.9(L) 3.2 - 5.0 g/dL LAB CHEMISTRY METHOD 05/11/2024 10:49 AM EST [facility] Total Bilirubin 0.3 0.0 - 1.4 mg/dL LAB CHEMISTRY METHOD 05/11/2024 10:49 AM [facility] Blood Venous blood specimen / Unknown Venipuncture / Unknown 05/11/2024 6:37 AM EST 05/11/2024 9:28 AM EST us Michelle Rucker MD LAB BLOOD ORDERABLES Fin al Result [facility] [address] [place] [address], documented in this encounter Visit Diagnoses Diagnosis Kidney transplant status 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 Diff Rule-Out Infection 08/14/2024 08/13/2024 0 08/14/2024 11:06 AM EST documented as of this encounter Care Teams Telegraph Installer Relationship Specialty Start Date End Date Michelle Rucker MD [address] [place] [phone] PCP - General Family Medicine 05/06/24 documented as of this encounter
--- OUTSIDE RECORDS SUMMARY | 2024-11-10 12:35 | XMS_ITS | Encounter Summary ---
Author Organization [facility] [place], Address [address] [facility] [address] [place] [address] Phone Care Team Providers Care Group Rooms Coordinator Name Role Phone Tennille Linton NP Primary Care Provider + Reason for Visit * Reason Comments Med Refill Encounter Details Date Type Department Care Team (Late st Contact Info) Description 12/19/2023 Refill [facility] [place], [address] [place] [address] Kennedy Childs DO [address] [place] [address] Social History Tobacco Use Types [...] Visit [facility] [place] [address] [place] [phone] Andrey Phan MD [address] [place] [address] 12/02/2024 11:30 AM EDT Office Visit [facility] [address] [place] [address] Andrey Phan MD [address] [place] [address] [place] [address] documented as of this encounter Visit Diagnoses Not on filedocumented in this encounter Care Teams Group Rooms Coordinator Relationship Specialty Start Date End Date Tennille Linton NP [address] [place] [phone] PCP - General Nurse Practitioner 08/07/23 documented as of this encounter
--- OUTSIDE RECORDS SUMMARY | 2024-11-10 12:35 | XMS_ITS | Encounter Summary ---
Author Organization [facility] [place], Address [address] [address] Phone Care Team Providers Care Back Closer Name Role Phone Tennille Linton NP Primary Care Provider + Reason for Visit * Reason Comments Med Refill Encounter Details Date Type Department Care Team (Late st Contact Info) Description 12/10/2022 Refill [facility] [place], [address] [place] [address] Andrey Phan MD [address] [place] [address] [place] [address] Social History Tobacco Use Types [...] Visit [facility] [place] [address] [place] [address] Andrey Phan MD [address] [facility] [place] [address] 12/02/2024 11:30 AM EDT Office Visit [facility] [address] [place] [address] Andrey Phan MD [address] [place] [address] [place] [address] documented as of this encounter Visit Diagnoses Not on filedocumented in this encounter Care Teams Back Closer Relationship Specialty Start Date End Date Tennille Linton NP [address] [place] [phone] PCP - General Nurse Practitioner 08/07/23 documented as of this encounter
--- OUTSIDE RECORDS SUMMARY | 2024-11-10 12:35 | XMS_ITS | Encounter Summary ---
Author Organization [facility] [place], Address [address] [address] Phone Care Team Providers Care Web Page Developer Name Role Phone Tennille Linton NP Primary Care Provider + Reason for Visit * Reason Comments Med Refill Encounter Details Date Type Department Care Team (Late st Contact Info) Description 09/10/2022 Refill [facility] [address] [place] [address] Andrey Phan MD [address] [place] [address] [place] [address] Social History Tobacco Use Types [...] Visit [facility] [address] [place] [place] [address] Andrey Phan MD [address] [place] [address] [place] [address] 12/02/2024 11:30 AM EDT Office Visit [facility] [address] [place] [address] Andrey Phan MD [address] [place] [address] [place] [address] documented as of this encounter Visit Diagnoses Not on filedocumented in this encounter Care Teams Web Page Developer Relationship Specialty Start Date End Date Tennille Linton NP [address] [place] [phone] PCP - General Nurse Practitioner 08/07/23 documented as of this encounter
--- OUTSIDE RECORDS SUMMARY | 2024-11-10 12:35 | XMS_ITS | Encounter Summary ---
Author Organization [facility] Address [address] [place] [address] Care Team Providers Care Cloth Handler Name Role Phone Michelle Rucker MD Primary Care Provider + Encounter Details Date Type Department Care Team (Late st Contact Info) Description 05/18/[address] [facility] - Main Lab [address] 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 This confirmation testing has not been cleared or approved by the FDA. The laboratory is regulated under CLIA as qualified to perform high-complexity testing. This test is used for patient testing purposes. It should not be regarded as investigational or for research. Test performed at [facility], [address], [place], [place] ??[address] ? [phone] Brittanie Horan MD, PhD - Dog Raiser Blood Venous blood specimen / Unknown Venipuncture / Unknown 05/19/2024 5:08 AM EST 05/19/2024 9:54 AM EST Michelle Rucker MD LAB BLOOD ORDERABLES Fin al Result Performing Organization Address City/State/[facility] Phone Number [facility] [address] [place] [address] * (ABNORMAL) Comprehensive metabolic panel (05/19/2024 5:08 AM EST) Sodium 141 133 - 145 mmol/L LAB CHEMISTRY METHOD 05/19/2024 10:42 AM [facility] Potassium 4.9 3.5 - 5.5 mmol/L LAB CHEMISTRY METHOD 05/19/2024 10:42 AM [facility] Chloride 109 96 - 110 mmol/L LAB CHEMISTRY METHOD 05/19/2024 10:42 AM [facility] CO2 26 21 - 32 mmol/L LAB CHEMISTRY METHOD 05/19/2024 10:42 AM [facility] Anion Gap 6 3 - 11 LAB CHEMISTRY METHOD 05/19/2024 10:42 AM [facility] Glucose 115(H) 70 - 100 mg/dL LAB CHEMISTRY METHOD 05/19/2024 10:42 AM [facility] BUN 28(H) 5 - 25 mg/dL LAB CHEMISTRY METHOD 05/19/2024 10:42 AM [facility] Creatinine 2.12(H) 0.70 - 1.30 mg/dL LAB CHEMISTRY METHOD 05/19/2024 10:42 AM [facility] eGFR 34(L) >=60 mL/min/1. 73m2 LAB CHEMISTRY METHOD 05/19/2024 10:42 AM [facility] Comment:Calculation based on the??Chronic Kidney Disease Epidemiology Collaboration (CKD-EPI) equation refit??without adjustment for race. BUN/Creatinine Ratio 13.2 LAB CHEMISTRY METHOD 05/19/2024 10:42 AM [facility] Calcium 9.6 8.5 - 10.5 mg/dL LAB CHEMISTRY METHOD 05/19/2024 10:42 AM [facility] AST (SGOT) 25 10 - 42 unit/L LAB CHEMISTRY METHOD 05/19/2024 10:42 AM EST [facility] ALT (SGPT) 14 10 - 60 unit/L LAB CHEMISTRY METHOD 05/19/2024 10:42 AM EST [facility] Alkaline Phosphatase 58 42 - 121 unit/L LAB CHEMISTRY METHOD 05/19/2024 10:42 AM EST [facility] Total Protein 6.8 6.0 - 8.0 g/dL LAB CHEMISTRY METHOD 05/19/2024 10:42 AM EST [facility] Albumin 3.1(L) 3.2 - 5.0 g/dL LAB CHEMISTRY METHOD 05/19/2024 10:42 AM [facility] Total Bilirubin 0.4 0.0 - 1.4 mg/dL LAB CHEMISTRY METHOD 05/19/2024 10:42 AM [facility] Blood Venous blood specimen / Unknown Venipuncture / Unknown 05/19/2024 5:08 AM EST 05/19/2024 9:54 AM EST us Michelle Rucker MD LAB BLOOD ORDERABLES Fin al Result [facility] [address] [place] [address], documented in this encounter Visit Diagnoses Diagnosis Kidney transplant status 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 Diff Rule-Out Infection 08/14/2024 08/13/2024 0 08/14/2024 11:06 AM EST documented as of this encounter Care Teams Cloth Handler Relationship Specialty Start Date End Date Michelle Rucker MD [address] [place] [phone] PCP - General Family Medicine 05/06/24 documented as of this encounter
--- OUTSIDE RECORDS SUMMARY | 2024-11-10 12:35 | XMS_ITS | Encounter Summary ---
Author Organization [facility], Address [address] [place] [phone] Phone Care Team Providers Care Soaker Helper Name Role Phone Tennille Linton NP Primary Care Provider + Encounter Details Date Type Department Care Team (Late st Contact Info) Description 08/28/2023 Documentation Only [facility], [address] [place] [address] [place] [address] [place] [phone] Social History Tobacco Use Types Packs/Day [...] Visit [facility] [address] [place] [address] Andrey hPan MD [address] [facility] [place] [address] 12/02/2024 11:30 AM EDT Office Visit [facility] [address] [place] [address] Andrey Phan MD [address] [facility] [place] [address] documented as of this encounter Visit Diagnoses Not on filedocumented in this encounter Care Teams Soaker Helper Relationship Specialty Start Date End Date Tennille Linton NP [address] [place] [phone] PCP - General Nurse Practitioner 08/07/23 documented as of this encounter
--- OUTSIDE RECORDS SUMMARY | 2024-11-10 12:35 | XMS_ITS | Encounter Summary ---
Author Organization [facility], Address [address] [place] [phone] Phone Care Team Providers Care Chief Service Observer Name Role Phone Tennille Linton NP Primary Care Provider + Encounter Details Date Type Department Care Team (Late st Contact Info) Description 10/05/2024 Documentation Only [facility], [address] [facility] [place] [address] [place] [address] [place] [phone] Social History Tobacco Use Types Packs/Day [...] Visit [facility] [address] [place] [address] Andrey Phan MD [address] [facility] [place] [address] 12/02/2024 11:30 AM EDT Office Visit [facility] [address] [place] [address] Andrey Phan MD [address] [facility] [place] [address] documented as of this encounter Visit Diagnoses Not on filedocumented in this encounter Care Teams Chief Service Observer Relationship Specialty Start Date End Date Tennille Linton NP [address] [place] [phone] PCP - General Nurse Practitioner 08/07/23 documented as of this encounter
--- OUTSIDE RECORDS SUMMARY | 2024-11-10 12:35 | XMS_ITS | Continuity of Care Document ---
Author Organization [facility] Address [address] [facility] [address] [place], [place] Phone [phone] Care Team Providers Care Final Inspector Truck Trailer Name Role Phone Lashell Aguilar MD Care Team Information Receive TESSA Cartwright M.D. Care Team Information Rec eiver Unavailable Lashell Aguilar MD Primary Care Physician Unavai lable Problems Active Problems Provider Date Impaired renal function disorder Tessa alvarado M.D. 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 Onset: 11/05/2014 Social History Type Date Description Comments Sex Unknown Allergies and adverse reactions Active Allergies Criticality Reaction Severity Comments Date Hyzaar Unable to assess criticality GI & lethargy 11/05/2014 Inactive Allergies NKDA Unable to assess criticality 11/05/2014 Medications Active Medications SIG Qnty Indications Order ing Provider Date Vrmofzk775Kcyr/ML Solution 6-10 unit subcutaneous three times a day 3vials Tessa Paredes M.D. 03/19/2017 Rosuvastatin Acalaha8qu Tablets 1/2 By Mouth Every Day 14tabs E10.8 Tessa Paredes M.D. 10/15/2016 [facility] Syr/NDL 29G 0.5ML U/F Use 1 Syringe Under The Skin Three Times Daily 90units E10.8 Tessa Paredes M.D. 12/03/2014 Freestyle Lite TestStrips 1 Strip To Meter 8 Times A Day 750units E10.8 Tessa Paredes M.D. 11/27/2014 N25.9 Ypysly252Rlro/ML Solution 12 unit subcutaneous twice a day 1units Tessa Paredes M.D. 11/05/2014 Freestyle LiteStrips (Blood Sugar Use 1 Strip Every Two Hours While Awake Check Blood Sugar 6-8 Timesa Day 750units E10.8 Tessa Paredes M.D. 09/29/2014 Rbtlggojgw95je Tablets TK 1 T PO qd Unkn own Clokszsknh23.5mg Tablets TK 1 T PO bid U nknown Amlodipine Qszwcnxz79tz Tablets 1 by mouth every day Jeff Lobo MD Fskabjhty8yq Tablets 1 by mouth every day 30tabs Tessa Paredes M.D. Hydralazine LHW04nz Tablets Jeff Lobo MD Doxazosin Opbdpmie7lv Tablets TK 1 T PO QHS Unknown Aqmwro368qy Tablets 1 tab by mouth daily Unknown Citrate Unknown History Medications Pravastatin Emfduj31mo Tablets 1 by mouth every day 30tabs E10.8 Tessa Paredes M.D. 07/06/2016 - 10/15/2016 Levothyroxine Tezpti98iky Tablets 1/2 by mouth every day=12.5/d 45tabs E03.9 Tessa Paredes M.D. 04/05/2016 - 07/06/2016 Jvphuwu298Ddvx/ML Solution inject 6-10 units subcutaneously 3 times a day 30ml Tessa Paredes M.D. 11/05/2014 - 03/19/2017 Sertraline HSM78va Tablets TK 1 T PO qd Unknown - 11/05/2014 Oxycodone HCL5mg Tablets Unknown - 11/05/2014 Reqjdz549Dstn/ML Solution Jeff Lobo MD - 11/05/2014 Penicillin V Ffupnmsvg283rc Tablets TK 1 T PO Q 6 H Tat Unknown - 11/05/2014 Hydrocodone-Acetamin ophen5-325mg Tablets TK 1 T PO Q 4 To 6 H prn P For 7 Days Unknown - 11/05/2014 Tamsulosin HCL0.4mg Capsules TK One C PO bid For 30 Days Unknown - 11/05/2014 Evwxcusz35xc Tablets TK 2 TS PO D For 30 Days Unknown - 11/05/2014 Ciprofloxacin NIL658gv Tablets TK 1 T PO Once D Unknown - 11/05/2014 Hydrocodone-Acetamin bqzhe58-642yq Tablets TK 1 T PO Q 6 H prn P Unknown - 11/05/2014 Ondansetron HCL8mg Tablets TK 1 T PO tid Unknown - 11/05/2014 Vgvvyrof672jk Tablets TK 1 T PO D For 30 Days Unknown - 11/05/2014 Losartan Kavbfzkgf499jn Tablets TK 1 T PO qd Unknown - 11/05/2014 Trazodone VDB47yg Tablets TK 1 T PO qd Unknown - 11/05/2014 Atorvastatin Yvvlqtv33pg Tablets TK 1 T PO Once A Day hs Unknown - 11/05/2014
--- OUTSIDE RECORDS SUMMARY | 2024-11-10 12:35 | XMS_ITS | Encounter Summary ---
Author Organization [facility], Address [address] [address] Phone Care Team Providers Care Directional Driller Name Role Phone Tennille Linton NP Primary Care Provider + Reason for Visit * Reason Comments Med Refill Encounter Details Date Type Department Care Team (Late st Contact Info) Description 05/12/2020 Refill [facility] [address] [place] [phone] Denise Isbell PA Social History Tobacco Use Types Packs/Day Years Used Date Smoking Tobacco: Never Alcohol Use Standard Drinks/Week Comments No 0 (1 standard drink = 0.6 oz pur e alcohol) Sex and Gender Information Value Date Recorded Sex Assigned at Not on file Legal Sex Male 4:34 PM EST Gender Identity Not on file Sexual Orientation Not on file COVID-19 Exposure Response Date Recorded In the last month, have you been in contact with someone who was confirmed or suspected to have Coronavirus / COVID-19? No / Unsure 05/08/2020 11:36 AM EST documented as of this encounter Plan of Treatment Upcoming Encounters Date Type Department Care Team (Late st Contact Info) Description 11/17/2024 10:00 AM EDT Office Visit [facility] [address] [place] [phone] Andrey Phan MD [address] [place] [address] [place] [address] 12/02/2024 11:30 AM EDT Office Visit [facility] [place] [address] [facility] [place] [address] Andrey Phan MD [address] [facility] [place] [address] documented as of this encounter Visit Diagnoses Not on filedocumented in this encounter Care Teams Directional Driller Relationship Specialty Start Date End Date Tennille Linton NP [address] [place] [phone] PCP - General Nurse Practitioner 08/07/23 documented as of this encounter
--- OUTSIDE RECORDS SUMMARY | 2024-11-10 12:35 | XMS_ITS | Encounter Summary ---
Author Organization [facility] Address [address] [address] Phone Care Team Providers Care Head Holder Name Role Phone Tennille Linton NP Primary Care Provider + Reason for Visit * Reason Onset Date Comments Med Refill 11/06/2024 Encounter Details Date Type Department Care Team (Late st Contact Info) Description 11/06/2024 Refill [facility] [place], [address] [facility] [place] [address] Zeinab Walker [address] [place] [phone] Social History Tobacco Use Types Packs/Day Years [...] Visit [facility] [address] [place] [phone] Andrey Phan MD [address] [place] [address] 12/02/2024 11:30 AM EDT Office Visit [facility] [address] [place] [address] Andrey Phan MD [address] [place] [address] [place] [address] documented as of this encounter Visit Diagnoses Not on filedocumented in this encounter Care Teams Head Holder Relationship Specialty Start Date End Date Tennille Linton NP [address] [place] [phone] PCP - General Nurse Practitioner 08/07/23 documented as of this encounter
--- OUTSIDE RECORDS SUMMARY | 2024-11-10 12:35 | XMS_ITS | Encounter Summary ---
Author Organization [facility] Address [address] [place] [phone] Care Team Providers Care Development Manager Name Role Phone Michelle Rucker MD Primary Care Provider + Encounter Details Date Type Department Care Team (Late st Contact Info) Description 05/15/2024 Lab Requisition [facility] - Main Lab [address] [facility] [place] [address] Michelle Rucker MD [address] [phone] Kidney transplant status; Squamous cell carcinoma of [...] on file documented as of this encounter Visit Diagnoses Diagnosis Kidney transplant status 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 Diff Rule-Out Infection 08/14/2024 08/13/2024 0 08/14/2024 11:06 AM EST documented as of this encounter Care Teams Development Manager Relationship Specialty Start Date End Date Michelle Rucker MD [address] [place] [address] [phone] PCP - General Family Medicine 05/06/24 documented as of this encounter
--- OUTSIDE RECORDS SUMMARY | 2024-11-10 12:35 | XMS_ITS | Encounter Summary ---
Author Organization [facility] [place], Address [address] [place] [phone] Phone Care Team Providers Care Entry Level Mechanical Engineer Name Role Phone Tennille Linton NP Primary Care Provider + Encounter Details Date Type Department Care Team (Late st Contact Info) Description 06/29/2022 Documentation Only [facility] [place], [address] [facility] [place] [address] [place] [address] [place] [phone] Social History Tobacco Use Types Packs/Day [...] Visit [facility] [place] [address] [facility] [place] [address] Andrey Phan MD [address] [facility] [place] [address] 12/02/2024 11:30 AM EDT Office Visit [facility] [place] [address] [facility] [place] [address] Andrey Phan MD [address] [facility] [place] [address] documented as of this encounter Visit Diagnoses Not on filedocumented in this encounter Care Teams Entry Level Mechanical Engineer Relationship Specialty Start Date End Date Tennille Linton NP [address] [place] [phone] PCP - General Nurse Practitioner 08/07/23 documented as of this encounter
--- OUTSIDE RECORDS SUMMARY | 2024-11-10 12:35 | XMS_ITS | Encounter Summary ---
Author Organization [facility] Address [address] [place] [phone] Care Team Providers Care Configuration Consultant Name Role Phone Michelle Rucker MD Primary Care Provider + Encounter Details Date Type Department Care Team (Late st Contact Info) Description 05/13/2024 Lab Requisition [facility] - Main Lab [address] [facility] [place] [address] Michelle Rucker MD [address] [phone] Heart failure, unspecified (CMS/HCC V24, CMS/HCC V28); Type 1 diabetes mellitus with diabetic neuropathy, unspecified (CMS/HCC V24, CMS/HCC V28); Unspecified sequelae of unspecified cerebrovascular disease; Kidney transplant status; Squamous cell carcinoma of [...] Associated Diagnosis Comments COMPLETE BLOOD COUNT Routine 05/13/2024 6:07 AM EST Heart failure, unspecified (CMS/HCC) Type 1 diabetes mellitus with diabetic neuropathy, unspecified (CMS/HCC) Unspecified sequelae of unspecified cerebrovascular disease Kidney transplant status 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 COMPREHENSIVE METABOLIC PANEL Routine 05/13/2024 6:07 AM EST Heart failure, unspecified (CMS/HCC) Type 1 diabetes mellitus with diabetic neuropathy, unspecified (CMS/HCC) Unspecified sequelae of unspecified cerebrovascular disease Kidney transplant status 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 documented in this encounter Results * (ABNORMAL) Comprehensive metabolic panel (05/13/2024 6:07 AM EST) Sodium 138 133 - 145 mmol/L LAB CHEMISTRY METHOD 05/13/2024 12:10 PM [facility] Potassium 4.6 3.5 - 5.5 mmol/L LAB CHEMISTRY METHOD 05/13/2024 12:10 PM [facility] Chloride 105 96 - 110 mmol/L LAB CHEMISTRY METHOD 05/13/2024 12:10 PM [facility] CO2 23 21 - 32 mmol/L LAB CHEMISTRY METHOD 05/13/2024 12:10 PM [facility] Anion Gap 10 3 - 11 LAB CHEMISTRY METHOD 05/13/2024 12:10 PM [facility] Glucose 144(H) 70 - 100 mg/dL LAB CHEMISTRY METHOD 05/13/2024 12:10 PM [facility] BUN 30(H) 5 - 25 mg/dL LAB CHEMISTRY METHOD 05/13/2024 12:10 PM [facility] Creatinine 2.06(H) 0.70 - 1.30 mg/dL LAB CHEMISTRY METHOD 05/13/2024 12:10 PM [facility] eGFR 35(L) >=60 mL/min/1. 73m2 LAB CHEMISTRY METHOD 05/13/2024 12:10 PM [facility] Comment:Calculation based on the??Chronic Kidney Disease Epidemiology Collaboration (CKD-EPI) equation refit??without adjustment for race. BUN/Creatinine Ratio 14.6 LAB CHEMISTRY METHOD 05/13/2024 12:10 PM [facility] Calcium 9.8 8.5 - 10.5 mg/dL LAB CHEMISTRY METHOD 05/13/2024 12:10 PM [facility] AST (SGOT) 14 10 - 42 unit/L LAB CHEMISTRY METHOD 05/13/2024 12:10 PM [facility] ALT (SGPT) 14 10 - 60 unit/L LAB CHEMISTRY METHOD 05/13/2024 12:10 PM [facility] Alkaline Phosphatase 54 42 - 121 unit/L LAB CHEMISTRY METHOD 05/13/2024 12:10 PM [facility] Total Protein 6.5 6.0 - 8.0 g/dL LAB CHEMISTRY METHOD 05/13/2024 12:10 PM [facility] Albumin 2.8(L) 3.2 - 5.0 g/dL LAB CHEMISTRY METHOD 05/13/2024 12:10 PM [facility] Total Bilirubin 0.3 0.0 - 1.4 mg/dL LAB CHEMISTRY METHOD 05/13/2024 12:10 PM [facility] Blood Venous blood specimen / Unknown Venipuncture / Unknown 05/13/2024 6:07 AM EST 05/13/2024 8:50 AM EST us Michelle Rucker MD LAB BLOOD ORDERABLES Fin al Result [facility] [address] [place] [address], * (ABNORMAL) Complete blood count (05/13/2024 6:07 AM EST) WBC 8.3 4.8 - 10.8 K/mcL LAB HEMETOLOGY METHOD 05/13/2024 10:51 AM [facility] RBC 4.10(L) 4.50 - 5.50 M/mcL LAB HEMETOLOGY METHOD 05/13/2024 10:51 AM [facility] Hemoglobin 10.8(L) 13.5 - 17.5 g/dL LAB HEMETOLOGY METHOD 05/13/2024 10:51 AM [facility] Hematocrit 34.5(L) 42.0 - 54.0 % LAB HEMETOLOGY METHOD 05/13/2024 10:51 AM [facility] MCV 85.2 79.0 - 98.0 FL LAB HEMETOLOGY METHOD 05/13/2024 10:51 AM [facility] MCH 26.7(L) 27.0 - 32.0 pcg LAB HEMETOLOGY METHOD 05/13/2024 10:51 AM [facility] MCHC 31.3(L) 32.0 - 37.0 g/dL LAB HEMETOLOGY METHOD 05/13/2024 10:51 AM [facility] RDW 13.0 11.0 - 15.0 % LAB HEMETOLOGY METHOD 05/13/2024 10:51 AM [facility] Platelets 250 130 - 400 K/mcL LAB HEMETOLOGY METHOD 05/13/2024 10:51 AM EST [facility] MPV 10.7 7.0 - 11.0 FL LAB HEMETOLOGY METHOD 05/13/2024 10:51 AM [facility] NRBC 0.0 <1.0 % LAB HEMETOLOGY METHOD 05/13/2024 10:51 AM [facility] NRBC Absolute 0.00 <0.10 K/mcL LAB HEMETOLOGY METHOD 05/13/2024 10:51 AM [facility] Blood Venous blood specimen / Unknown Venipuncture / Unknown 05/13/2024 6:07 AM EST 05/13/2024 8:50 AM EST us Michelle Rucker MD LAB BLOOD ORDERABLES Fin al Result [facility] [address] [place] [address], documented in this encounter Visit Diagnoses Diagnosis Heart failure, unspecified (CMS/[facility] V24, [facility] V28) Heart failure, unspecified Type 1 diabetes mellitus with diabetic neuropathy, unspecified ([facility] V24, [facility] V28) Unspecified sequelae of unspecified cerebrovascular disease Kidney transplant status 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 Diff Rule-Out Infection 08/14/2024 08/13/2024 0 08/14/2024 11:06 AM EST documented as of this encounter Care Teams Configuration Consultant Relationship Specialty Start Date End Date Michelle Rucker MD [address] [place] [address] PCP - General Family Medicine 05/06/24 documented as of this encounter
--- OUTSIDE RECORDS SUMMARY | 2024-11-10 12:35 | XMS_ITS | Encounter Summary ---
Author Organization [facility] Address [id number] [place] [phone] Care Team Providers Care Inventory Controller Name Role Phone Michelle Rucker MD Primary Care Provider + Encounter Details Date Type Department Care Team (Late st Contact Info) Description 04/29/2024 Lab Requisition [facility] - Main Lab [address] [facility] [place] [address] Michelle Rucker MD [address] [phone] Urinary tract infection, site not specified Social History Tobacco Use Types Packs/Day Years [...] Procedure Name Priority Date/Time Associated Diagnosis Comments URINALYSIS WITH REFLEX MICROSCOPIC AND CULTURE Routine 04/29/2024 8:00 AM EST Urinary tract infection, site not specified URINALYSIS WITH REFLEX MICROSCOPIC AND CULTURE Routine 04/29/2024 8:00 AM EST Urinary tract infection, site not specified CULTURE URINE Routine 04/29/2024 8:00 AM EST Urinary tract infection, site not specified documented in this encounter Results * (ABNORMAL) Urinalysis with reflex microscopic and culture (04/29/2024 8:00 AM EST) Specific [place] Urine 1.012 1.003 - 1.030 LAB URINALYSIS - AUTOMATED METHOD 04/29/2024 2:52 PM [facility] pH, Urine 6.0 5.0 - 8.0 pH LAB URINALYSIS - AUTOMATED METHOD 04/29/2024 2:52 PM [facility] Leukocytes, Urine Trace(A) Negative LAB URINALYSIS - AUTOMATED METHOD 04/29/2024 2:52 PM [facility] Nitrite, Urine Negative Negative LAB URINALYSIS - AUTOMATED METHOD 04/29/2024 2:52 PM [facility] Protein, Urine Trace <=Trace mg/dL LAB URINALYSIS - AUTOMATED METHOD 04/29/2024 2:52 PM [facility] Glucose, Urine 250(A) Negative mg/dL LAB URINALYSIS - AUTOMATED METHOD 04/29/2024 2:52 PM [facility] Ketones, Urine Negative Negative mg/dL LAB URINALYSIS - AUTOMATED METHOD 04/29/2024 2:52 PM [facility] Urobilinogen, Urine 0.2 0.2 - 1.0 mg/dL LAB URINALYSIS - AUTOMATED METHOD 04/29/2024 2:52 PM [facility] Bilirubin, Urine Negative Negative LAB URINALYSIS - AUTOMATED METHOD 04/29/2024 2:52 PM [facility] Blood, Urine Negative Negative LAB URINALYSIS - AUTOMATED METHOD 04/29/2024 2:52 PM [facility] RBC, Urine 2.3 0 - 4 /HPF LAB URINALYSIS - AUTOMATED METHOD 04/29/2024 2:52 PM [facility] WBC, Urine 2.8 0 - 4 /HPF LAB URINALYSIS - AUTOMATED METHOD 04/29/2024 2:52 PM [facility] Squamous Epithelial, Urine 6 0 - 60 /LPF LAB URINALYSIS - AUTOMATED METHOD 04/29/2024 2:52 PM [facility] Bacteria, Urine Negative Negative /HPF LAB URINALYSIS - AUTOMATED METHOD 04/29/2024 2:52 PM EST [facility] Hyaline Casts, Urine 0.0 0 - 3 /LPF LAB URINALYSIS - AUTOMATED METHOD 04/29/2024 2:52 PM EST [facility] Urine Urine specimen obtained by clean catch procedure / Unknown 04/29/2024 8:00 AM EST 04/29/2024 2:32 PM EST Michelle Rucker MD LAB URINE ORDERABLES Fin al Result Performing Organization Address [facility] Co de Phone Number [facility] [address] [place] [address], [place] [phone] * (ABNORMAL) Culture urine (04/29/2024 8:00 AM EST) Culture, Urine 10,000-49,0 00 CFU/mL Yolande albicans/du bliniensis( A) 05/01/2024 2:22 PM EST [facility] Comment: The organism value for this result has been updated. These results have been appended to the previously preliminary verified report. Urine Urine specimen obtained by clean catch procedure / Unknown 04/29/2024 8:00 AM EST 04/29/2024 2:32 PM EST Michelle Rucker MD LAB MICROBIOLOGY - GENER AL ORDERABLES Final Result Performing Organization Address [facility]/ZIP Co de Phone Number [facility] [address] [place] [address], [place] [phone] documented in this encounter Visit Diagnoses Diagnosis Urinary tract infection, site not specified documented in this encounter Additional Health Concerns Infection Onset Date Last Indicated Resolved Time C. Diff Rule-Out Infection 08/14/2024 08/13/2024 0 08/14/2024 11:06 AM EST documented as of this encounter Care Teams Inventory Controller Relationship Specialty Start Date End Date Michelle Rucker MD [address] [place] [phone] PCP - General Family Medicine 05/06/24 documented as of this encounter
--- OUTSIDE RECORDS SUMMARY | 2024-11-10 12:35 | XMS_ITS | Encounter Summary ---
Author Organization [facility], Address [address] [phone] Phone Care Team Providers Care Lot Associate Name Role Phone Tennille Linton NP Primary Care Provider + Reason for Visit * Reason Comments Med Refill Encounter Details Date Type Department Care Team (Late st Contact Info) Description 06/20/2023 Refill [facility], [address] [facility] [place] [address] Andrey Phan MD [address] [place] [address] [place] [address] Social History Tobacco Use Types [...] Visit [facility] [address] [place] [address] Andrey Phan MD [address] [facility] [place] [address] 12/02/2024 11:30 AM EDT Office Visit [facility] [address] [place] [address] Andrey Phan MD [address] [place] [address] [place] [address] documented as of this encounter Visit Diagnoses Not on filedocumented in this encounter Care Teams Lot Associate Relationship Specialty Start Date End Date Tennille Linton NP [address] [place] [phone] PCP - General Nurse Practitioner 08/07/23 documented as of this encounter
--- OUTSIDE RECORDS SUMMARY | 2024-11-10 12:35 | XMS_ITS | Encounter Summary ---
Author Organization [facility], Address [address] [place] [phone] Phone Care Team Providers Care Fire Management Specialist Name Role Phone Tennille Linton NP Primary Care Provider + Encounter Details Date Type Department Care Team (Late st Contact Info) Description 10/06/2024 Documentation Only [facility], [address] [facility] [place] [place] [address] [place] [address] [place] [phone] Social History Tobacco Use Types Packs/Day [...] Visit [facility] [address] [facility] [place] [address] Andrey Phan MD [address] [facility] [place] [address] 12/02/2024 11:30 AM EDT Office Visit [facility] [address] [facility] [place] [address] Andrey Phan MD [address] [facility] [place] [address] documented as of this encounter Visit Diagnoses Not on filedocumented in this encounter Care Teams Fire Management Specialist Relationship Specialty Start Date End Date Tennille Linton NP [address] [place] [phone] PCP - General Nurse Practitioner 08/07/23 documented as of this encounter
--- OUTSIDE RECORDS SUMMARY | 2024-11-10 12:35 | XMS_ITS | Encounter Summary ---
Author Organization [facility], Address [address] [address] Phone Care Team Providers Care Separator Inserter Name Role Phone Tennille Linton NP Primary Care Provider + Reason for Visit * Reason Comments Med Refill Encounter Details Date Type Department Care Team (Late st Contact Info) Description 07/23/2022 Refill [facility] [address] [place] [address] Denise Isbell PA Social History [...] Visit [facility] [address] [place] [phone] Andrey Phan MD [address] [place] [address] [place] [phone] 12/02/2024 11:30 AM EDT Office Visit [facility] [address] [facility] [facility] [place] [phone] Andrey Phan MD [address] [facility] [place] [address] documented as of this encounter Visit Diagnoses Not on filedocumented in this encounter Care Teams Separator Inserter Relationship Specialty Start Date End Date Tennille Linton NP [address] [place] [phone] PCP - General Nurse Practitioner 08/07/23 documented as of this encounter
--- OUTSIDE RECORDS SUMMARY | 2024-11-10 12:35 | XMS_ITS | Encounter Summary ---
Author Organization [facility], Address [address] [address] Phone Care Team Providers Care Top Hat Body Maker Name Role Phone Tennille Linton NP Primary Care Provider + Reason for Visit * Reason Comments Med Refill Encounter Details Date Type Department Care Team (Late st Contact Info) Description 12/15/2022 Refill [facility], [address] [facility] [place] [address] Andrey Phan MD [address] [place] [address] [place] [address] Social History Tobacco Use Types [...] Visit [facility] [address] [facility] [place] [address] Andrey Phan MD [address] [facility] [place] [address] 12/02/2024 11:30 AM EDT Office Visit [facility] [address] [place] [address] Andrey Phan MD [address] [place] [address] [place] [address] documented as of this encounter Visit Diagnoses Not on filedocumented in this encounter Care Teams Top Hat Body Maker Relationship Specialty Start Date End Date Tennille Linton NP [address] [place] [phone] PCP - General Nurse Practitioner 08/07/23 documented as of this encounter
--- OUTSIDE RECORDS SUMMARY | 2024-11-10 12:35 | XMS_ITS | Encounter Summary ---
Author Organization [facility] Address [address] [place] [phone] Care Team Providers Care Test Equipment Mechanic Name Role Phone Michelle Rucker MD Primary Care Provider + Encounter Details Date Type Department Care Team (Late st Contact Info) Description 05/07/2024 Lab Requisition [facility] - Main Lab [address] [place] [address] Michelle Rucker MD [address] [phone] Urinary tract infection, site not specified Social [...] Associated Diagnosis Comments URINALYSIS WITH REFLEX MICROSCOPIC Routine 05/06/2024 11:00 AM EST Urinary tract infection, site not specified URINALYSIS WITH REFLEX MICROSCOPIC Routine 05/06/2024 11:00 AM EST Urinary tract infection, site not specified CULTURE URINE Routine 05/06/2024 11:00 AM EST Urinary tract infection, site not specified documented in this encounter Results * (ABNORMAL) Urinalysis with reflex microscopic (05/06/2024 11:00 AM EST) Specific [place] Urine 1.015 1.003 - 1.030 LAB URINALYSIS - AUTOMATED METHOD 05/07/2024 11:00 AM [facility] pH, Urine 5.5 5.0 - 8.0 pH LAB URINALYSIS - AUTOMATED METHOD 05/07/2024 11:00 AM [facility] Leukocytes, Urine Trace(A) Negative LAB URINALYSIS - AUTOMATED METHOD 05/07/2024 11:00 AM [facility] Nitrite, Urine Negative Negative LAB URINALYSIS - AUTOMATED METHOD 05/07/2024 11:00 AM [facility] Protein, Urine 100(A) <=Trace mg/dL LAB URINALYSIS - AUTOMATED METHOD 05/07/2024 11:00 AM [facility] Glucose, Urine 500(A) Negative mg/dL LAB URINALYSIS - AUTOMATED METHOD 05/07/2024 11:00 AM [facility] Ketones, Urine Trace(A) Negative mg/dL LAB URINALYSIS - AUTOMATED METHOD 05/07/2024 11:00 AM [facility] Urobilinogen , Urine 0.2 0.2 - 1.0 mg/dL LAB URINALYSIS - AUTOMATED METHOD 05/07/2024 11:00 AM [facility] Bilirubin, Urine Negative Negative LAB URINALYSIS - AUTOMATED METHOD 05/07/2024 11:00 AM [facility] Blood, Urine Small(A) Negative LAB URINALYSIS - AUTOMATED METHOD 05/07/2024 11:00 AM [facility] RBC, Urine 2.6 0 - 4 /HPF LAB URINALYSIS - AUTOMATED METHOD 05/07/2024 11:00 AM [facility] WBC, Urine 20.3(H) 0 - 4 /HPF LAB URINALYSIS - AUTOMATED METHOD 05/07/2024 11:00 AM [facility] Squamous Epithelial, Urine 55 0 - 60 /LPF LAB URINALYSIS - AUTOMATED METHOD 05/07/2024 11:00 AM [facility] Bacteria, Urine Negative Negative /HPF LAB URINALYSIS - AUTOMATED METHOD 05/07/2024 11:00 AM EST [facility] Hyaline Casts, Urine 1.2 0 - 3 /LPF LAB URINALYSIS - AUTOMATED METHOD 05/07/2024 11:00 AM EST [facility] Yeast, Urine Present(A) None /HPF LAB URINALYSIS - AUTOMATED METHOD 05/07/2024 11:00 AM EST [facility] Urine Urine specimen obtained by clean catch procedure / Unknown 05/06/2024 11:00 AM EST 05/07/2024 9:55 AM EST us Michelle Rucker MD LAB URINE ORDERABLES Fin al Result [facility] [address] [place] [address], * (ABNORMAL) Culture urine (05/06/2024 11:00 AM EST) Culture, Urine 10,000-49,000 CFU/mL Klebsiella pneumoniae ssp pneumoniae(A) YENNIFER 05/09/2024 11:26 AM EST [facility] Comment: This is an edited result. Previous organism was Gram negative bacilli on 05/08/2024 at 0819 EST. Urine Urine specimen obtained by clean catch procedure / Unknown 05/06/2024 11:00 AM EST 05/07/2024 9:55 AM EST Narrative [facility] - 05/09/2024 11:26 AM EST Normal skin/urogenital robyn noted Organism Antibiotic Method Susceptibility Klebsiella pneumoniae ssp pneumoniae Amoxicillin/Clavulanate YENNIFER <=2 ug/ml: Susceptible Klebsiella pneumoniae ssp pneumoniae Ampicillin/Sulbactam YENNIFER 8 ug/ml: Susceptible Klebsiella pneumoniae ssp pneumoniae Piperacillin/Tazobactam YENNIFER <=4 ug/ml: Susceptible Klebsiella pneumoniae ssp pneumoniae Cefazolin (Urine) YENNIFER 2 ug/ml: Susceptible Klebsiella pneumoniae ssp pneumoniae Cefoxitin YENNIFER <=4 ug/ml: Susceptible Klebsiella pneumoniae ssp pneumoniae Ceftazidime YENNIFER <=0.5 ug/ml: Susceptible Klebsiella pneumoniae ssp pneumoniae Ceftriaxone YENNIFER <=0.25 ug/ml: Susceptible Klebsiella pneumoniae ssp pneumoniae Cefepime YENNIFER <=0.12 ug/ml: Susceptible Klebsiella pneumoniae ssp pneumoniae Meropenem YENNIFER <=0.25 ug/ml: Susceptible Klebsiella pneumoniae ssp pneumoniae Amikacin YENNIFER <=1 ug/ml: Susceptible Klebsiella pneumoniae ssp pneumoniae Gentamicin YENNIFER <=1 ug/ml: Susceptible Klebsiella pneumoniae ssp pneumoniae Ciprofloxacin YENNIFER <=0.06 ug/ml: Susceptible Klebsiella pneumoniae ssp pneumoniae Levofloxacin YENNIFER <=0.12 ug/ml: Susceptible Klebsiella pneumoniae ssp pneumoniae Nitrofurantoin YENNIFER 64 ug/ml: Intermediate Klebsiella pneumoniae ssp pneumoniae Trimethoprim/Sulfamethoxazo le YENNIFER <=20 ug/ml: Susceptible us Michelle Rucker MD LAB MICROBIOLOGY - [facility] AL ORDERABLES Final Result [facility] ([facility]) [facility] [address] [place] [address], documented in this encounter Visit Diagnoses Diagnosis Urinary tract infection, site not specified documented in this encounter Additional Health Concerns Infection Onset Date Last Indicated Resolved Time C. Diff Rule-Out Infection 08/14/2024 08/13/2024 0 08/14/2024 11:06 AM EST documented as of this encounter Care Teams Test Equipment Mechanic Relationship Specialty Start Date End Date Michelle Rucker MD [address] [place] [phone] PCP - General Family Medicine 05/06/24 documented as of this encounter
--- OUTSIDE RECORDS SUMMARY | 2024-11-10 12:36 | XMS_ITS | Encounter Summary ---
Author Organization [facility] Address [address] [place] [phone] Care Team Providers Care Talkback Host Name Role Phone Michelle Rucker MD Primary Care Provider + Encounter Details Date Type Department Care Team (Late st Contact Info) Description 08/13/2024 Lab Requisition [facility] - Main Lab [address] [place] [address] Michelle Rucker MD [address] [phone] Vitamin D deficiency, unspecified; Malignant (primary) neoplasm, unspecified (CMS/HCC V24, CMS/HCC V28); Kidney transplant status Social History Tobacco Use [...] Associated Diagnosis Comments COMPLETE BLOOD COUNT Routine 08/14/2024 7:21 AM EST Vitamin D deficiency, unspecified Malignant (primary) neoplasm, unspecified (CMS/HCC) Kidney transplant status BASIC METABOLIC PANEL Routine 08/14/2024 7:21 AM EST Vitamin D deficiency, unspecified Malignant (primary) neoplasm, unspecified (CMS/HCC) Kidney transplant status documented in this encounter Results * (ABNORMAL) Basic metabolic panel (08/14/2024 7:21 AM EST) Sodium 130(L) 133 - 145 mmol/L LAB CHEMISTRY METHOD 08/14/2024 10:[address] [facility] Potassium 4.4 3.5 - 5.5 mmol/L LAB CHEMISTRY METHOD 08/14/2024 10:[address] [facility] Chloride 94(L) 96 - 110 mmol/L LAB CHEMISTRY METHOD 08/14/2024 10:[address] [facility] CO2 30 21 - 32 mmol/L LAB CHEMISTRY METHOD 08/14/2024 10:[address] [facility] Anion Gap 6 3 - 11 LAB CHEMISTRY METHOD 08/14/2024 10:[address] [facility] Glucose 277(H) 70 - 100 mg/dL LAB CHEMISTRY METHOD 08/14/2024 10:[address] [facility] BUN 34(H) 5 - 25 mg/dL LAB CHEMISTRY METHOD 08/14/2024 10:[address] [facility] Creatinine 1.45(H) 0.70 - 1.30 mg/dL LAB CHEMISTRY METHOD 08/14/2024 10:[address] [facility] eGFR 53(L) >=60 mL/min/1. 73m2 LAB CHEMISTRY METHOD 08/14/2024 10:[address] [facility] Comment:Calculation based on the??Chronic Kidney Disease Epidemiology Collaboration (CKD-EPI) equation refit??without adjustment for race. BUN/Creatinine Ratio 23.4 LAB CHEMISTRY METHOD 08/14/2024 10:[address] [facility] Calcium 9.8 8.5 - 10.5 mg/dL LAB CHEMISTRY METHOD 08/14/2024 10:[address] [facility] Blood Venous blood specimen / Unknown Venipuncture / Unknown 08/14/2024 7:21 AM EST 08/14/2024 8:35 AM EST us Michelle Rucker MD LAB BLOOD ORDERABLES Fin al Result [facility] [address] [place] [address], * (ABNORMAL) Complete blood count (08/14/2024 7:21 AM EST) [facility] WBC 12.8(H) 4.8 - 10.8 K/mcL LAB HEMETOLOGY METHOD 08/14/2024 9:50 AM EST [facility] RBC 4.00(L) 4.50 - 5.50 M/mcL LAB HEMETOLOGY METHOD 08/14/2024 9:50 AM EST [facility] Hemoglobin 10.3(L) 13.5 - 17.5 g/dL LAB HEMETOLOGY METHOD 08/14/2024 9:[address] [facility] Hematocrit 33.3(L) 42.0 - 54.0 % LAB HEMETOLOGY METHOD 08/14/2024 9:50 AM EST [facility] MCV 84.1 79.0 - 98.0 FL LAB HEMETOLOGY METHOD 08/14/2024 9:50 AM EST [facility] MCH 26.0(L) 27.0 - 32.0 pcg LAB HEMETOLOGY METHOD 08/14/2024 9:50 AM EST [facility] MCHC 30.9(L) 32.0 - 37.0 g/dL LAB HEMETOLOGY METHOD 08/14/2024 9:50 AM EST [facility] RDW 14.9 11.0 - 15.0 % LAB HEMETOLOGY METHOD 08/14/2024 9:50 AM EST [facility] Platelets 373 130 - 400 K/mcL LAB HEMETOLOGY METHOD 08/14/2024 9:[address] [facility] MPV 10.4 7.0 - 11.0 FL LAB HEMETOLOGY METHOD 08/14/2024 9:50 AM EST [facility] NRBC 0.0 <1.0 % LAB HEMETOLOGY METHOD 08/14/2024 9:50 AM EST [facility] NRBC Absolute 0.00 <0.10 K/mcL LAB HEMETOLOGY METHOD 08/14/2024 9:50 AM EST [facility] Blood Venous blood specimen / Unknown Venipuncture / Unknown 08/14/2024 7:21 AM EST 08/14/2024 8:35 AM EST us Michelle Rucker MD LAB BLOOD ORDERABLES Fin al Result [facility]) [facility] [address] [place] [address], documented in this encounter Visit Diagnoses Diagnosis Vitamin D deficiency, unspecified Malignant (primary) neoplasm, unspecified (CMS/HCC V24, CMS/HCC V28) Kidney transplant status documented in this encounter Additional Health Concerns Infection Onset Date Last Indicated Resolved Time C. Diff Rule-Out Infection 08/14/2024 08/13/2024 0 08/14/2024 11:06 AM EST documented as of this encounter Care Teams Talkback Host Relationship Specialty Start Date End Date Michelle Rucker MD [address] [place] [phone] PCP - General Family Medicine 05/06/24 documented as of this encounter
--- OUTSIDE RECORDS SUMMARY | 2024-11-10 12:36 | XMS_ITS | Encounter Summary ---
Author Organization [facility] Address [address] [place] [phone] Care Team Providers Care Distillation Operator Helper Name Role Phone Michelle Rucker MD Primary Care Provider + Encounter Details Date Type Department Care Team (Late st Contact Info) Description 06/13/2024 Lab Requisition [facility] - Main Lab 299 [facility] [place] [place] [address] Michelle Rucker MD [address] [phone] Hyperlipidemia, unspecified; Heart failure, unspecified (CMS/HCC V24, CMS/HCC V28); Anemia, unspecified; Type 1 diabetes mellitus with diabetic neuropathy, unspecified (CMS/HCC V24, CMS/HCC V28) Social History Tobacco Use Types Packs/Day Years [...] Associated Diagnosis Comments COMPLETE BLOOD COUNT Routine 06/15/2024 6:08 AM EST Hyperlipidemia, unspecified Heart failure, unspecified (CMS/HCC) Anemia, unspecified Type 1 diabetes mellitus with diabetic neuropathy, unspecified (CMS/HCC) BASIC METABOLIC PANEL Routine 06/15/2024 6:08 AM EST Hyperlipidemia, unspecified Heart failure, unspecified (CMS/HCC) Anemia, unspecified Type 1 diabetes mellitus with diabetic neuropathy, unspecified (CMS/HCC) documented in this encounter Results * (ABNORMAL) Basic metabolic panel (06/15/2024 6:08 AM EST) Sodium 136 133 - 145 mmol/L LAB CHEMISTRY METHOD 06/15/2024 1:[address] [facility] Potassium 4.6 3.5 - 5.5 mmol/L LAB CHEMISTRY METHOD 06/15/2024 1:[address] [facility] Chloride 106 96 - 110 mmol/L LAB CHEMISTRY METHOD 06/15/2024 1:[address] [facility] CO2 24 21 - 32 mmol/L LAB CHEMISTRY METHOD 06/15/2024 1:[address] [facility] Anion Gap 6 3 - 11 LAB CHEMISTRY METHOD 06/15/2024 1:[address] [facility] Glucose 304(H) 70 - 100 mg/dL LAB CHEMISTRY METHOD 06/15/2024 1:[address] [facility] BUN 32(H) 5 - 25 mg/dL LAB CHEMISTRY METHOD 06/15/2024 1:[address] [facility] Creatinine 1.82(H) 0.70 - 1.30 mg/dL LAB CHEMISTRY METHOD 06/15/2024 1:[address] [facility] eGFR 40(L) >=60 mL/min/1. 73m2 LAB CHEMISTRY METHOD 06/15/2024 1:[address] [facility] Comment:Calculation based on the??Chronic Kidney Disease Epidemiology Collaboration (CKD-EPI) equation refit??without adjustment for race. BUN/Creatinine Ratio 17.6 LAB CHEMISTRY METHOD 06/15/2024 1:[address] [facility] Calcium 10.1 8.5 - 10.5 mg/dL LAB CHEMISTRY METHOD 06/15/2024 1:[address] [facility] Blood Venous blood specimen / Unknown Venipuncture / Unknown 06/15/2024 6:08 AM EST 06/15/2024 11:15 AM EST us Michelle Rucker MD LAB BLOOD ORDERABLES Fin al Result [facility] [address] [place] [address], * (ABNORMAL) Complete blood count (06/15/2024 6:08 AM EST) WBC 7.4 4.8 - 10.8 K/mcL LAB HEMETOLOGY METHOD 06/15/2024 1:[address] [facility] RBC 5.20 4.50 - 5.50 M/mcL LAB HEMETOLOGY METHOD 06/15/2024 1:[address] [facility] Hemoglobin 13.1(L) 13.5 - 17.5 g/dL LAB HEMETOLOGY METHOD 06/15/2024 1:[address] [facility] Hematocrit 42.1 42.0 - 54.0 % LAB HEMETOLOGY METHOD 06/15/2024 1:[address] [facility] MCV 81.6 79.0 - 98.0 FL LAB HEMETOLOGY METHOD 06/15/2024 1:[address] [facility] MCH 25.4(L) 27.0 - 32.0 pcg LAB HEMETOLOGY METHOD 06/15/2024 1:[address] [facility] MCHC 31.1(L) 32.0 - 37.0 g/dL LAB HEMETOLOGY METHOD 06/15/2024 1:[address] [facility] RDW 14.0 11.0 - 15.0 % LAB HEMETOLOGY METHOD 06/15/2024 1:[address] [facility] Platelets 219 130 - 400 K/mcL LAB HEMETOLOGY METHOD 06/15/2024 1:[address] [facility] MPV 11.4(H) 7.0 - 11.0 FL LAB HEMETOLOGY METHOD 06/15/2024 1:05 PM EST [facility] NRBC 0.0 <1.0 % LAB HEMETOLOGY METHOD 06/15/2024 1:05 PM EST [facility] NRBC Absolute 0.00 <0.10 K/mcL LAB HEMETOLOGY METHOD 06/15/2024 1:05 PM EST [facility] Blood Venous blood specimen / Unknown Venipuncture / Unknown 06/15/2024 6:08 AM EST 06/15/2024 11:15 AM EST us Michelle Rucker MD LAB BLOOD ORDERABLES Fin al Result [facility] [address] [place] [address], documented in this encounter Visit Diagnoses Diagnosis Hyperlipidemia, unspecified Heart failure, unspecified (CMS/HCC V24, CMS/HCC V28) Heart failure, unspecified Anemia, unspecified Type 1 diabetes mellitus with diabetic neuropathy, unspecified (CMS/HCC V24, CMS/HCC V28) documented in this encounter Additional Health Concerns Infection Onset Date Last Indicated Resolved Time C. Diff Rule-Out Infection 08/14/2024 08/13/2024 0 08/14/2024 11:06 AM EST documented as of this encounter Care Teams Distillation Operator Helper Relationship Specialty Start Date End Date Michelle Rucker MD [address] [place] [phone] PCP - General Family Medicine 05/06/24 documented as of this encounter
--- OUTSIDE RECORDS SUMMARY | 2024-11-10 12:36 | XMS_ITS | Encounter Summary ---
Author Organization [facility] Address [address] [place] [phone] Care Team Providers Care Log Washer Name Role Phone Michelle Rucker MD Primary Care Provider + Encounter Details Date Type Department Care Team (Late st Contact Info) Description 07/07/2024 Lab Requisition [facility] - Main Lab 299 [facility] [place] [address] Michelle Rucker MD [address] [phone] Heart failure, unspecified (CMS/HCC V24, CMS/HCC V28); Vitamin D deficiency, unspecified; Hyperlipidemia, unspecified; Anemia, unspecified; Type 1 diabetes mellitus with diabetic neuropathy, unspecified (CMS/HCC V24, CMS/HCC V28); Squamous cell carcinoma of skin of left [...] Associated Diagnosis Comments COMPLETE BLOOD COUNT Routine 07/08/2024 5:38 AM EST Heart failure, unspecified (CMS/HCC) Vitamin D deficiency, unspecified Hyperlipidemia, unspecified Anemia, unspecified Type 1 diabetes mellitus with diabetic neuropathy, unspecified (CMS/HCC) 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 COMPREHENSIVE METABOLIC PANEL Routine 07/08/2024 5:38 AM EST Heart failure, unspecified (CMS/HCC) Vitamin D deficiency, unspecified Hyperlipidemia, unspecified Anemia, unspecified Type 1 diabetes mellitus with diabetic neuropathy, unspecified (CMS/HCC) 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 documented in this encounter Results * (ABNORMAL) Comprehensive metabolic panel (07/08/2024 5:38 AM EST) Sodium 135 133 - 145 mmol/L LAB CHEMISTRY METHOD 07/08/2024 10:15 AM [facility] Potassium 4.4 3.5 - 5.5 mmol/L LAB CHEMISTRY METHOD 07/08/2024 10:15 AM [facility] Chloride 101 96 - 110 mmol/L LAB CHEMISTRY METHOD 07/08/2024 10:15 AM [facility] CO2 27 21 - 32 mmol/L LAB CHEMISTRY METHOD 07/08/2024 10:15 AM [facility] Anion Gap 7 3 - 11 LAB CHEMISTRY METHOD 07/08/2024 10:15 AM [facility] Glucose 342(H) 70 - 100 mg/dL LAB CHEMISTRY METHOD 07/08/2024 10:15 AM [facility] BUN 33(H) 5 - 25 mg/dL LAB CHEMISTRY METHOD 07/08/2024 10:15 AM [facility] Creatinine 1.50(H) 0.70 - 1.30 mg/dL LAB CHEMISTRY METHOD 07/08/2024 10:15 AM [facility] eGFR 51(L) >=60 mL/min/1. 73m2 LAB CHEMISTRY METHOD 07/08/2024 10:15 AM [facility] Comment:Calculation based on the??Chronic Kidney Disease Epidemiology Collaboration (CKD-EPI) equation refit??without adjustment for race. BUN/Creatinine Ratio 22.0 LAB CHEMISTRY METHOD 07/08/2024 10:15 AM [facility] Calcium 9.3 8.5 - 10.5 mg/dL LAB CHEMISTRY METHOD 07/08/2024 10:15 AM EST [facility] AST (SGOT) 14 10 - 42 unit/L LAB CHEMISTRY METHOD 07/08/2024 10:15 AM [facility] ALT (SGPT) 12 10 - 60 unit/L LAB CHEMISTRY METHOD 07/08/2024 10:15 AM [facility] Alkaline Phosphatase 74 42 - 121 unit/L LAB CHEMISTRY METHOD 07/08/2024 10:15 AM [facility] Total Protein 6.8 6.0 - 8.0 g/dL LAB CHEMISTRY METHOD 07/08/2024 10:15 AM [facility] Albumin 2.6(L) 3.2 - 5.0 g/dL LAB CHEMISTRY METHOD 07/08/2024 10:15 AM [facility] Total Bilirubin 0.4 0.0 - 1.4 mg/dL LAB CHEMISTRY METHOD 07/08/2024 10:15 AM [facility] Blood Venous blood specimen / Unknown Venipuncture / Unknown 07/08/2024 5:38 AM EST 07/08/2024 8:44 AM EST us Michelle Rucker MD LAB BLOOD ORDERABLES Fin al Result [facility] [address] [place] [address], * (ABNORMAL) Complete blood count (07/08/2024 5:38 AM EST) WBC 9.1 4.8 - 10.8 K/mcL LAB HEMETOLOGY METHOD 07/08/2024 8:56 AM [facility] RBC 4.70 4.50 - 5.50 M/mcL LAB HEMETOLOGY METHOD 07/08/2024 8:56 AM [facility] Hemoglobin 12.4(L) 13.5 - 17.5 g/dL LAB HEMETOLOGY METHOD 07/08/2024 8:56 AM EST [facility] Hematocrit 39.6(L) 42.0 - 54.0 % LAB HEMETOLOGY METHOD 07/08/2024 8:56 AM [facility] MCV 83.7 79.0 - 98.0 FL LAB HEMETOLOGY METHOD 07/08/2024 8:56 AM [facility] MCH 26.2(L) 27.0 - 32.0 pcg LAB HEMETOLOGY METHOD 07/08/2024 8:56 AM EST [facility] MCHC 31.3(L) 32.0 - 37.0 g/dL LAB HEMETOLOGY METHOD 07/08/2024 8:56 AM [facility] RDW 15.8(H) 11.0 - 15.0 % LAB HEMETOLOGY METHOD 07/08/2024 8:56 AM [facility] Platelets 252 130 - 400 K/mcL LAB HEMETOLOGY METHOD 07/08/2024 8:56 AM EST [facility] MPV 11.3(H) 7.0 - 11.0 FL LAB HEMETOLOGY METHOD 07/08/2024 8:56 AM [facility] NRBC 0.0 <1.0 % LAB HEMETOLOGY METHOD 07/08/2024 8:56 AM [facility] NRBC Absolute 0.00 <0.10 K/mcL LAB HEMETOLOGY METHOD 07/08/2024 8:56 AM [facility] Blood Venous blood specimen / Unknown Venipuncture / Unknown 07/08/2024 5:38 AM EST 07/08/2024 8:44 AM EST us Michelle Rucker MD LAB BLOOD ORDERABLES Fin al Result [facility] [address] [place] [address], documented in this encounter Visit Diagnoses Diagnosis Heart failure, unspecified ([facility] V24, [facility] V28) Heart failure, unspecified Vitamin D deficiency, unspecified Hyperlipidemia, unspecified Anemia, unspecified Type 1 diabetes mellitus with diabetic neuropathy, unspecified ([facility] V24, [facility] V28) 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 Diff Rule-Out Infection 08/14/2024 08/13/2024 0 08/14/2024 11:06 AM EST documented as of this encounter Care Teams Log Washer Relationship Specialty Start Date End Date Michelle Rucker MD [address] [place] [address] PCP - General Family Medicine 05/06/24 documented as of this encounter
--- OUTSIDE RECORDS SUMMARY | 2024-11-10 12:36 | XMS_ITS | Encounter Summary ---
Author Organization [facility] Address [address] [place] [phone] Care Team Providers Care Auto Radio Mechanic Name Role Phone Michelle Rucker MD Primary Care Provider + Encounter Details Date Type Department Care Team (Late st Contact Info) Description 10/02/2024 Lab Requisition [facility] - Main Lab 299 [facility] [place] [address] Michelle Rucker MD [address] [phone] Acute kidney failure, unspecified (CMS/HCC V24); Other acute kidney failure (CMS/HCC V24) Social History Tobacco Use Types Packs/Day Years [...] URINALYSIS WITH REFLEX MICROSCOPIC AND CULTURE Routine 10/01/2024 1:45 PM EDT Acute kidney failure, unspecified (CMS/HCC V24) Other acute kidney failure (CMS/HCC V24) SCOTT URINE CULTURE TUBE Routine 10/01/2024 1:45 PM EDT Acute kidney failure, unspecified (CMS/HCC V24) Other acute kidney failure (CMS/HCC V24) MICROALBUMIN CREATININE URINE RATIO Routine 10/01/2024 1:45 PM EDT Acute kidney failure, unspecified (CMS/HCC V24) Other acute kidney failure (CMS/HCC V24) BK VIRUS PCR URINE, QUANTITATIVE Routine 10/01/2024 1:45 PM EDT Acute kidney failure, unspecified ([facility] [place] [place] V24) Other acute kidney failure ([facility] V24) URINALYSIS WITH REFLEX MICROSCOPIC AND CULTURE Routine 10/01/2024 1:45 PM EDT Acute kidney failure, unspecified ([facility] V24) Other acute kidney failure ([facility] V24) documented in this encounter Results * Scott urine culture tube (10/01/2024 1:45 PM EDT) Pathologist [facility] Extra Tube Hold for add-ons. 10/02/2024 11:01 AM EDT [facility] Comment:Auto resulted. Urine Urine specimen obtained by clean catch procedure / Unknown Non-blood Collection / Unknown 10/01/2024 1:45 PM EDT 10/02/2024 9:03 AM EDT us Michelle Rucker MD LAB URINE ORDERABLES Fin al Result [facility] [address] [place] [address], * (ABNORMAL) Urinalysis with reflex microscopic and culture (10/01/2024 1:45 PM EDT) Pathologist [facility] Specific [place] Urine 1.002(L) 1.003 - 1.030 LAB URINALYSIS - AUTOMATED METHOD 10/02/2024 9:15 AM EDT [facility] pH, Urine 6.5 5.0 - 8.0 pH LAB URINALYSIS - AUTOMATED METHOD 10/02/2024 9:15 AM EDT [facility] Leukocytes, Urine Negative Negative LAB URINALYSIS - AUTOMATED METHOD 10/02/2024 9:15 AM EDT [facility] Nitrite, Urine Negative Negative LAB URINALYSIS - AUTOMATED METHOD 10/02/2024 9:15 AM EDT [facility] Protein, Urine Negative <=Trace mg/dL LAB URINALYSIS - AUTOMATED METHOD 10/02/2024 9:15 AM [facility] Glucose, Urine Negative Negative mg/dL LAB URINALYSIS - AUTOMATED METHOD 10/02/2024 9:15 AM [facility] Ketones, Urine Negative Negative mg/dL LAB URINALYSIS - AUTOMATED METHOD 10/02/2024 9:15 AM [facility] Urobilinogen, Urine 0.2 0.2 - 1.0 mg/dL LAB URINALYSIS - AUTOMATED METHOD 10/02/2024 9:15 AM [facility] Bilirubin, Urine Negative Negative LAB URINALYSIS - AUTOMATED METHOD 10/02/2024 9:15 AM [facility] Blood, Urine Negative Negative LAB URINALYSIS - AUTOMATED METHOD 10/02/2024 9:15 AM [facility] Urine Urine specimen obtained by clean catch procedure / Unknown Non-blood Collection / Unknown 10/01/2024 1:45 PM EDT 10/02/2024 8:46 AM EDT us Michelle Rucker MD LAB URINE ORDERABLES Fin al Result [facility] [address] [place] [address], * (ABNORMAL) Microalbumin creatinine urine ratio (10/01/2024 1:45 PM EDT) Creatinine, Urine 27.0 mg/dL LAB CHEMISTRY METHOD 10/02/2024 10:08 AM [facility] Microalb, Ur 30.7(H) 0.0 - 29.0 mg/L LAB CHEMISTRY METHOD 10/02/2024 10:08 AM [facility] Microalb/Crea t Ratio 114(H) <30 mg/g creat LAB CHEMISTRY METHOD 10/02/2024 10:08 AM EDT [facility] Urine Urine specimen obtained by clean catch procedure / Unknown Non-blood Collection / Unknown 10/01/2024 1:45 PM EDT 10/02/2024 8:46 AM EDT us Michelle Rucker MD LAB URINE ORDERABLES Fin al Result [facility] [address] [place] [address], * (ABNORMAL) BK virus molecular study urine, quantitative (10/01/2024 1:45 PM EDT) BK Virus DNA Qual Urine DETECTED( A) Not detected 10/05/2024 12:56 PM EDT [facility] BK Virus DNA Quant PCR Urine 851(H) <125 Copies/mL 10/05/2024 12:56 PM EDT [facility] Log BK Virus DNA, Urine 2.93(H) <2.10 Log (10) Copies/mL 10/05/2024 12:56 PM EDT [facility] Comment: This test utilizes a polymerase chain reaction to amplify sequences from the VP1 regions of the BK virus genome. ?? Real-time detection and quantification are used to determine the viral copy number. The analytical measurement range is 125 to 5 million copies/mL (2.10 to 6.70 log(10) copies/mL). Specimens with viral loads greater than 5 million copies/mL are diluted to establish the endpoint. The qualitative limit of detection is 100 copies/mL(1.78 log(10) copies/mL). Specimens reported as DETECTED but <125 copies/mL contain detectable levels of BK virus DNA but the viral load is below the limit of quantitation. ??A Not detected result does not rule out infection. This test uses commercial reagents that have not been approved or cleared by the FDA. ??The FDA has determined that such clearance or approval is not necessary. The performance characteristics of this procedure were determined by [employer]. This test is performed pursuant to a license agreement with [employer] Test performed at [facility], [address], [place], [place] ??[address] ? [phone] Brittanie Horan MD, PhD - Energy Consultant Urine Urinary bladder structure / Unknown Non-blood Collection / Unknown 10/01/2024 1:45 PM EDT 10/02/2024 8:46 AM EDT Michelle Rucker MD LAB URINE ORDERABLES Fin al Result [facility] [address] [place] [address] documented in this encounter Visit Diagnoses Diagnosis Acute kidney failure, unspecified (CMS/HCC V24) Acute kidney failure, unspecified Other acute kidney failure (CMS/HCC V24) documented in this encounter Care Teams Auto Radio Mechanic Relationship Specialty Start Date End Date Michelle Rucker MD [address] [place] [phone] PCP - General Family Medicine 05/06/24 documented as of this encounter
--- OUTSIDE RECORDS SUMMARY | 2024-11-10 12:36 | XMS_ITS | Encounter Summary ---
Author Organization [facility] Address [id number] [place] [phone] Care Team Providers Care Sfdc Consultant Name Role Phone Michelle Rucker MD Primary Care Provider + Encounter Details Date Type Department Care Team (Late st Contact Info) Description 08/06/2024 Lab Requisition [facility] - Main Lab [address] [facility] [place] [address] Michelle Rucker MD [address] [address] Vitamin D deficiency, unspecified; Malignant (primary) neoplasm, unspecified (CMS/HCC V24, CMS/HCC V28); Kidney transplant status; Type 1 diabetes mellitus with diabetic neuropathy, unspecified (CMS/HCC V24, CMS/HCC V28); 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; Hyperlipidemia, unspecified; End stage renal disease (CMS/HCC V24, CMS/HCC V28) Social History Tobacco [...] Procedure Name Priority Date/Time Associated Diagnosis Comments VITAMIN D 25 HYDROXY Routine 08/07/2024 6:48 AM EST Vitamin D deficiency, unspecified Malignant (primary) neoplasm, unspecified (CMS/HCC) Kidney transplant status Type 1 diabetes mellitus with diabetic neuropathy, unspecified (CMS/HCC) 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 Hyperlipidemia, unspecified End stage renal disease (CMS/HCC) COMPLETE BLOOD COUNT Routine 08/07/2024 6:48 AM EST Vitamin D deficiency, unspecified Malignant (primary) neoplasm, unspecified (CMS/HCC) Kidney transplant status Type 1 diabetes mellitus with diabetic neuropathy, unspecified (CMS/HCC) 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 Hyperlipidemia, unspecified End stage renal disease (CMS/HCC) MAGNESIUM Routine 08/07/2024 6:48 AM EST Vitamin D deficiency, unspecified Malignant (primary) neoplasm, unspecified (CMS/HCC) Kidney transplant status Type 1 diabetes mellitus with diabetic neuropathy, unspecified (CMS/HCC) 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 Hyperlipidemia, unspecified End stage renal disease (CMS/HCC) HEMOGLOBIN A1C Routine 08/07/2024 6:48 AM EST Vitamin D deficiency, unspecified Malignant (primary) neoplasm, unspecified (CMS/HCC) Kidney transplant status Type 1 diabetes mellitus with diabetic neuropathy, unspecified (CMS/HCC) 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 Hyperlipidemia, unspecified End stage renal disease (CMS/HCC) FOLATE Routine 08/07/2024 6:48 AM EST Vitamin D deficiency, unspecified Malignant (primary) neoplasm, unspecified (CMS/HCC) Kidney transplant status Type 1 diabetes mellitus with diabetic neuropathy, unspecified (CMS/HCC) 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 Hyperlipidemia, unspecified End stage renal disease (CMS/HCC) VITAMIN B12 Routine 08/07/2024 6:48 AM EST Vitamin D deficiency, unspecified Malignant (primary) neoplasm, unspecified (CMS/HCC) Kidney transplant status Type 1 diabetes mellitus with diabetic neuropathy, unspecified (CMS/HCC) 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 Hyperlipidemia, unspecified End stage renal disease (CMS/HCC) COMPREHENSIVE METABOLIC PANEL Routine 08/07/2024 6:48 AM EST Vitamin D deficiency, unspecified Malignant (primary) neoplasm, unspecified (CMS/HCC) Kidney transplant status Type 1 diabetes mellitus with diabetic neuropathy, unspecified (CMS/HCC) 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 197 mg/dL LAB CHEMISTRY METHOD 08/07/2024 11:25 AM EST [facility] Blood Venous blood specimen / Unknown Venipuncture / Unknown 08/07/2024 6:48 AM EST 08/07/2024 8:30 AM EST Michelle Rucker MD LAB BLOOD ORDERABLES Fin al Result Performing Organization Address [facility]/ZIP Co de Phone Number [facility] [address] [place] [address], * Vitamin D 25 hydroxy (08/07/2024 6:48 AM EST) [facility] Vit D, 25-Hydroxy 49.9 30.0 - 80.0 ng/mL LAB CHEMISTRY METHOD 08/07/2024 10:27 AM EST [facility] Blood Venous blood specimen / Unknown Venipuncture / Unknown 08/07/2024 6:48 AM EST 08/07/2024 8:30 AM EST Michelle Rucker MD LAB BLOOD ORDERABLES Fin al Result Performing Organization Address City/[facility]/ZIP Co de Phone Number [facility] [address] [place] [address], * Vitamin B12 (08/07/2024 6:48 AM EST) [facility] Vitamin B-12 670 250 - 900 pcg/mL LAB CHEMISTRY METHOD 08/07/2024 10:47 AM EST [facility] Blood Venous blood specimen / Unknown Venipuncture / Unknown 08/07/2024 6:48 AM EST 08/07/2024 8:30 AM EST Michelle Rucker MD LAB BLOOD ORDERABLES Fin al Result Performing Organization Address [facility]/ZIP Co de Phone Number [facility] [address] [place] [address], [place] [phone] * Folate (08/07/2024 6:48 AM EST) Folate 8.7 2.8 - 17.0 ng/ml LAB CHEMISTRY METHOD 08/07/2024 10:47 AM EST [facility] Blood Venous blood specimen / Unknown Venipuncture / Unknown 08/07/2024 6:48 AM EST 08/07/2024 8:30 AM EST Michelle Rucker MD LAB BLOOD ORDERABLES Fin al Result Performing Organization Address [facility]/ZIP Co de Phone Number [facility] [address] [place] [address], [place] [phone] * Magnesium (08/07/2024 6:48 AM EST) Magnesium 2.0 1.9 - 2.6 mg/dL LAB CHEMISTRY METHOD 08/07/2024 10:20 AM EST [facility] Blood Venous blood specimen / Unknown Venipuncture / Unknown 08/07/2024 6:48 AM EST 08/07/2024 8:30 AM EST Michelle Rucker MD LAB BLOOD ORDERABLES Fin al Result [facility] [address] [place] [address], [place] [phone] * (ABNORMAL) Comprehensive metabolic panel (08/07/2024 6:48 AM EST) Sodium 134 133 - 145 mmol/L LAB CHEMISTRY METHOD 08/07/2024 10:47 AM [facility] Potassium 4.7 3.5 - 5.5 mmol/L LAB CHEMISTRY METHOD 08/07/2024 10:47 AM [facility] Chloride 100 96 - 110 mmol/L LAB CHEMISTRY METHOD 08/07/2024 10:47 AM [facility] CO2 27 21 - 32 mmol/L LAB CHEMISTRY METHOD 08/07/2024 10:47 AM [facility] Anion Gap 7 3 - 11 LAB CHEMISTRY METHOD 08/07/2024 10:47 AM [facility] Glucose 185(H) 70 - 100 mg/dL LAB CHEMISTRY METHOD 08/07/2024 10:47 AM [facility] BUN 23 5 - 25 mg/dL LAB CHEMISTRY METHOD 08/07/2024 10:47 AM [facility] Creatinine 1.41(H) 0.70 - 1.30 mg/dL LAB CHEMISTRY METHOD 08/07/2024 10:47 AM [facility] eGFR 55(L) >=60 mL/min/1. 73m2 LAB CHEMISTRY METHOD 08/07/2024 10:47 AM [facility] Comment:Calculation based on the??Chronic Kidney Disease Epidemiology Collaboration (CKD-EPI) equation refit??without adjustment for race. BUN/Creatinine Ratio 16.3 LAB CHEMISTRY METHOD 08/07/2024 10:47 AM [facility] Calcium 9.3 8.5 - 10.5 mg/dL LAB CHEMISTRY METHOD 08/07/2024 10:47 AM [facility] AST (SGOT) 15 10 - 42 unit/L LAB CHEMISTRY METHOD 08/07/2024 10:47 AM [facility] ALT (SGPT) 13 10 - 60 unit/L LAB CHEMISTRY METHOD 08/07/2024 10:47 AM EST [facility] Alkaline Phosphatase 76 42 - 121 unit/L LAB CHEMISTRY METHOD 08/07/2024 10:47 AM [facility] Total Protein 6.6 6.0 - 8.0 g/dL LAB CHEMISTRY METHOD 08/07/2024 10:47 AM [facility] Albumin 2.1(L) 3.2 - 5.0 g/dL LAB CHEMISTRY METHOD 08/07/2024 10:47 AM [facility] Total Bilirubin 0.3 0.0 - 1.4 mg/dL LAB CHEMISTRY METHOD 08/07/2024 10:47 AM [facility] Blood Venous blood specimen / Unknown Venipuncture / Unknown 08/07/2024 6:48 AM EST 08/07/2024 8:30 AM EST Michelle Rucker MD LAB BLOOD ORDERABLES Fin al Result [facility] [address] [place] [address], * (ABNORMAL) Complete blood count (08/07/2024 6:48 AM EST) WBC 9.7 4.8 - 10.8 K/mcL LAB HEMETOLOGY METHOD 08/07/2024 9:54 AM [facility] RBC 3.80(L) 4.50 - 5.50 M/mcL LAB HEMETOLOGY METHOD 08/07/2024 9:54 AM [facility] Hemoglobin 9.7(L) 13.5 - 17.5 g/dL LAB HEMETOLOGY METHOD 08/07/2024 9:54 AM [facility] Hematocrit 31.1(L) 42.0 - 54.0 % LAB HEMETOLOGY METHOD 08/07/2024 9:54 AM [facility] MCV 82.3 79.0 - 98.0 FL LAB HEMETOLOGY METHOD 08/07/2024 9:54 AM EST [facility] MCH 25.7(L) 27.0 - 32.0 pcg LAB HEMETOLOGY METHOD 08/07/2024 9:54 AM [facility] MCHC 31.2(L) 32.0 - 37.0 g/dL LAB HEMETOLOGY METHOD 08/07/2024 9:54 AM EST [facility] RDW 15.9(H) 11.0 - 15.0 % LAB HEMETOLOGY METHOD 08/07/2024 9:54 AM EST [facility] Platelets 277 130 - 400 K/mcL LAB HEMETOLOGY METHOD 08/07/2024 9:54 AM [facility] MPV 10.8 7.0 - 11.0 FL LAB HEMETOLOGY METHOD 08/07/2024 9:54 AM EST [facility] NRBC 0.0 <1.0 % LAB HEMETOLOGY METHOD 08/07/2024 9:54 AM [facility] NRBC Absolute 0.00 <0.10 K/mcL LAB HEMETOLOGY METHOD 08/07/2024 9:54 AM [facility] Blood Venous blood specimen / Unknown Venipuncture / Unknown 08/07/2024 6:48 AM EST 08/07/2024 8:30 AM EST us Michelle Rucker MD LAB BLOOD ORDERABLES Fin al Result 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 Diff Rule-Out Infection 08/14/2024 08/13/2024 0 08/14/2024 11:06 AM EST documented as of this encounter Care Teams Sfdc Consultant Relationship Specialty Start Date End Date Michelle Rucker MD [address] [place] [address] PCP - General Family Medicine 05/06/24 documented as of this encounter
--- OUTSIDE RECORDS SUMMARY | 2024-11-10 12:36 | XMS_ITS | Encounter Summary ---
Author Organization [facility] Address [address] [place] [address] Care Team Providers Care Forestry Instructor Name Role Phone Michelle Rucker MD Primary Care Provider + Encounter Details Date Type Department Care Team (Late st Contact Info) Description 06/03/2024 Lab Requisition [facility] - Main Lab [address] [place] [address] Michelle Rucker MD [address] [phone] Local infection of the skin and subcutaneous tissue, unspecified Social History Tobacco Use Types Packs/Day Years [...] Associated Diagnosis Comments COMPLETE BLOOD COUNT Routine 06/03/2024 5:20 AM EST Local infection of the skin and subcutaneous tissue, unspecified COMPREHENSIVE METABOLIC PANEL Routine 06/03/2024 5:20 AM EST Local infection of the skin and subcutaneous tissue, unspecified documented in this encounter Results * (ABNORMAL) Comprehensive metabolic panel (06/03/2024 5:20 AM EST) Sodium 139 133 - 145 mmol/L LAB CHEMISTRY METHOD 06/03/2024 11:50 AM EST [facility] Potassium 4.2 3.5 - 5.5 mmol/L LAB CHEMISTRY METHOD 06/03/2024 11:50 AM [facility] Chloride 106 96 - 110 mmol/L LAB CHEMISTRY METHOD 06/03/2024 11:50 AM [facility] CO2 24 21 - 32 mmol/L LAB CHEMISTRY METHOD 06/03/2024 11:50 AM [facility] Anion Gap 9 3 - 11 LAB CHEMISTRY METHOD 06/03/2024 11:50 AM [facility] Glucose 59(L) 70 - 100 mg/dL LAB CHEMISTRY METHOD 06/03/2024 11:50 AM [facility] BUN 34(H) 5 - 25 mg/dL LAB CHEMISTRY METHOD 06/03/2024 11:50 AM [facility] Creatinine 2.50(H) 0.70 - 1.30 mg/dL LAB CHEMISTRY METHOD 06/03/2024 11:50 AM [facility] eGFR 28(L) >=60 mL/min/1. 73m2 LAB CHEMISTRY METHOD 06/03/2024 11:50 AM [facility] Comment:Calculation based on the??Chronic Kidney Disease Epidemiology Collaboration (CKD-EPI) equation refit??without adjustment for race. BUN/Creatinine Ratio 13.6 LAB CHEMISTRY METHOD 06/03/2024 11:50 AM [facility] Calcium 9.9 8.5 - 10.5 mg/dL LAB CHEMISTRY METHOD 06/03/2024 11:50 AM [facility] AST (SGOT) 15 10 - 42 unit/L LAB CHEMISTRY METHOD 06/03/2024 11:50 AM [facility] ALT (SGPT) 10 10 - 60 unit/L LAB CHEMISTRY METHOD 06/03/2024 11:50 AM [facility] Alkaline Phosphatase 56 42 - 121 unit/L LAB CHEMISTRY METHOD 06/03/2024 11:50 AM [facility] Total Protein 6.6 6.0 - 8.0 g/dL LAB CHEMISTRY METHOD 06/03/2024 11:50 AM [facility] Albumin 3.1(L) 3.2 - 5.0 g/dL LAB CHEMISTRY METHOD 06/03/2024 11:50 AM [facility] Total Bilirubin 0.4 0.0 - 1.4 mg/dL LAB CHEMISTRY METHOD 06/03/2024 11:50 AM [facility] Blood Venous blood specimen / Unknown Venipuncture / Unknown 06/03/2024 5:20 AM EST 06/03/2024 10:18 AM EST us Michelle Rucker MD LAB BLOOD ORDERABLES Fin al Result [facility] [address] [place] [address], [place] [phone] * (ABNORMAL) Complete blood count (06/03/2024 5:20 AM EST) WBC 4.9 4.8 - 10.8 K/mcL LAB HEMETOLOGY METHOD 06/03/2024 11:05 AM [facility] RBC 4.40(L) 4.50 - 5.50 M/mcL LAB HEMETOLOGY METHOD 06/03/2024 11:05 AM [facility] Hemoglobin 11.4(L) 13.5 - 17.5 g/dL LAB HEMETOLOGY METHOD 06/03/2024 11:05 AM [facility] Hematocrit 36.6(L) 42.0 - 54.0 % LAB HEMETOLOGY METHOD 06/03/2024 11:05 AM [facility] MCV 83.9 79.0 - 98.0 FL LAB HEMETOLOGY METHOD 06/03/2024 11:05 AM [facility] MCH 26.1(L) 27.0 - 32.0 pcg LAB HEMETOLOGY METHOD 06/03/2024 11:05 AM EST [facility] MCHC 31.1(L) 32.0 - 37.0 g/dL LAB HEMETOLOGY METHOD 06/03/2024 11:05 AM EST [facility] RDW 13.9 11.0 - 15.0 % LAB HEMETOLOGY METHOD 06/03/2024 11:05 AM [facility] Platelets 157 130 - 400 K/mcL LAB HEMETOLOGY METHOD 06/03/2024 11:05 AM EST [facility] MPV 11.5(H) 7.0 - 11.0 FL LAB HEMETOLOGY METHOD 06/03/2024 11:05 AM EST [facility] NRBC 0.0 <1.0 % LAB HEMETOLOGY METHOD 06/03/2024 11:05 AM [facility] NRBC Absolute 0.00 <0.10 K/mcL LAB HEMETOLOGY METHOD 06/03/2024 11:05 AM [facility] Blood Venous blood specimen / Unknown Venipuncture / Unknown 06/03/2024 5:20 AM EST 06/03/2024 10:18 AM EST Michelle Rucker MD LAB BLOOD ORDERABLES Fin al Result [facility] [address] [place] [address], documented in this encounter Visit Diagnoses Diagnosis Local infection of the skin and subcutaneous tissue, unspecified documented in this encounter Additional Health Concerns Infection Onset Date Last Indicated Resolved Time C. Diff Rule-Out Infection 08/14/2024 08/13/2024 0 08/14/2024 11:06 AM EST documented as of this encounter Care Teams Forestry Instructor Relationship Specialty Start Date End Date Michelle Rucker MD [address] [place] [id number] PCP - General Family Medicine 05/06/24 documented as of this encounter
--- OUTSIDE RECORDS SUMMARY | 2024-11-10 12:36 | XMS_ITS | Encounter Summary ---
Author Organization [facility] Address [address] [place] [phone] Care Team Providers Care Mobile Mechanic Name Role Phone Michelle Rucker MD Primary Care Provider + Encounter Details Date Type Department Care Team (Late st Contact Info) Description 08/08/2024 Lab Requisition [facility] - Main Lab [address] [place] [address] Michelle Rucker MD [address] [phone] Hyperlipidemia, unspecified Social History Tobacco Use Types Packs/Day [...] Procedure Name Priority Date/Time Associated Diagnosis Comments BASIC METABOLIC PANEL Routine 08/08/2024 6:19 AM EST Hyperlipidemia, unspecified documented in this encounter Results * (ABNORMAL) Basic metabolic panel (08/08/2024 6:19 AM EST) Sodium 130(L) 133 - 145 mmol/L LAB CHEMISTRY METHOD 08/08/2024 9:26 AM EST [facility] Potassium 4.6 3.5 - 5.5 mmol/L LAB CHEMISTRY METHOD 08/08/2024 9:26 AM EST [facility] Chloride 96 96 - 110 mmol/L LAB CHEMISTRY METHOD 08/08/2024 9:26 AM EST [facility] CO2 28 21 - 32 mmol/L LAB CHEMISTRY METHOD 08/08/2024 9:26 AM [facility] Anion Gap 6 3 - 11 LAB CHEMISTRY METHOD 08/08/2024 9:26 AM [facility] Glucose 257(H) 70 - 100 mg/dL LAB CHEMISTRY METHOD 08/08/2024 9:26 AM [facility] BUN 25 5 - 25 mg/dL LAB CHEMISTRY METHOD 08/08/2024 9:26 AM [facility] Creatinine 1.44(H) 0.70 - 1.30 mg/dL LAB CHEMISTRY METHOD 08/08/2024 9:26 AM [facility] eGFR 54(L) >=60 mL/min/1. 73m2 LAB CHEMISTRY METHOD 08/08/2024 9:26 AM [facility] Comment:Calculation based on the??Chronic Kidney Disease Epidemiology Collaboration (CKD-EPI) equation refit??without adjustment for race. BUN/Creatinine Ratio 17.4 LAB CHEMISTRY METHOD 08/08/2024 9:26 AM [facility] Calcium 9.4 8.5 - 10.5 mg/dL LAB CHEMISTRY METHOD 08/08/2024 9:26 AM [facility] Blood Venous blood specimen / Unknown Venipuncture / Unknown 08/08/2024 6:19 AM EST 08/08/2024 7:50 AM EST us Michelle Rucker MD LAB BLOOD ORDERABLES Fin al Result [facility] [address] [place] [address], documented in this encounter Visit Diagnoses Diagnosis Hyperlipidemia, unspecified documented in this encounter Additional Health Concerns Infection Onset Date Last Indicated Resolved Time C. Diff Rule-Out Infection 08/14/2024 08/13/2024 0 08/14/2024 11:06 AM EST documented as of this encounter Care Teams Mobile Mechanic Relationship Specialty Start Date End Date Michelle Rucker MD [address] [place] [address] PCP - General Family Medicine 05/06/24 documented as of this encounter
--- OUTSIDE RECORDS SUMMARY | 2024-11-10 12:36 | XMS_ITS | Encounter Summary ---
Author Organization [facility] Address [address] [place] [phone] Care Team Providers Care Pathology Transcriptionist Name Role Phone Michelle Rucker MD Primary Care Provider + Encounter Details Date Type Department Care Team (Late st Contact Info) Description 07/02/2024 Lab Requisition [facility] - Main Lab 299 [facility] [place] [address] Michelle Rucker MD [address] [phone] Heart failure, unspecified (CMS/HCC V24, CMS/HCC V28); [...] Diagnosis Comments VITAMIN D 25 HYDROXY Routine 07/02/2024 7:17 AM EST Heart failure, unspecified (CMS/HCC) Vitamin D deficiency, unspecified Hyperlipidemia, unspecified Anemia, unspecified Type 1 diabetes mellitus with diabetic neuropathy, unspecified (CMS/HCC) 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 COMPLETE BLOOD COUNT Routine 07/02/2024 7:17 AM EST Heart failure, unspecified (CMS/HCC) Vitamin D deficiency, unspecified Hyperlipidemia, unspecified Anemia, unspecified Type 1 diabetes mellitus with diabetic neuropathy, unspecified (CMS/HCC) 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 THYROID STIMULATING HORMONE Routine 07/02/2024 7:17 AM EST Heart failure, unspecified (CMS/HCC) Vitamin D deficiency, unspecified Hyperlipidemia, unspecified Anemia, unspecified Type 1 diabetes mellitus with diabetic neuropathy, unspecified (CMS/HCC) 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 MAGNESIUM Routine 07/02/2024 7:17 AM EST Heart failure, unspecified (CMS/HCC) Vitamin D deficiency, unspecified Hyperlipidemia, unspecified Anemia, unspecified Type 1 diabetes mellitus with diabetic neuropathy, unspecified (CMS/HCC) 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 HEMOGLOBIN A1C Routine 07/02/2024 7:17 AM EST Heart failure, unspecified (CMS/HCC) Vitamin D deficiency, unspecified Hyperlipidemia, unspecified Anemia, unspecified Type 1 diabetes mellitus with diabetic neuropathy, unspecified (CMS/HCC) 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 FOLATE Routine 07/02/2024 7:17 AM EST Heart failure, unspecified (CMS/HCC) Vitamin D deficiency, unspecified Hyperlipidemia, unspecified Anemia, unspecified Type 1 diabetes mellitus with diabetic neuropathy, unspecified (CMS/HCC) 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 VITAMIN B12 Routine 07/02/2024 7:17 AM EST Heart failure, unspecified (CMS/HCC) Vitamin D deficiency, unspecified Hyperlipidemia, unspecified Anemia, unspecified Type 1 diabetes mellitus with diabetic neuropathy, unspecified (CMS/HCC) 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 COMPREHENSIVE METABOLIC PANEL Routine 07/02/2024 7:17 AM EST Heart failure, unspecified (CMS/HCC) Vitamin D deficiency, unspecified Hyperlipidemia, unspecified Anemia, unspecified Type 1 diabetes mellitus with diabetic neuropathy, unspecified (CMS/HCC) 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 documented in this encounter Results * Vitamin D 25 hydroxy (07/02/2024 7:17 AM EST) Pathologist [facility] Vit D, 25-Hydroxy 48.1 30.0 - 80.0 ng/mL LAB CHEMISTRY METHOD 07/02/2024 12:28 PM EST [facility] Blood Venous blood specimen / Unknown Venipuncture / Unknown 07/02/2024 7:17 AM EST 07/02/2024 9:17 AM EST Michelle Rucker MD LAB BLOOD ORDERABLES Fin al Result Performing Organization Address City/[facility]/ZIP Co de Phone Number [facility] [address] [place] [address], [place] [phone] * Vitamin B12 (07/02/2024 7:17 AM EST) [facility] Vitamin B-12 757 250 - 900 pcg/mL LAB CHEMISTRY METHOD 07/02/2024 12:08 PM EST [facility] Blood Venous blood specimen / Unknown Venipuncture / Unknown 07/02/2024 7:17 AM EST 07/02/2024 9:17 AM EST Michelle Rucker MD LAB BLOOD ORDERABLES Fin al Result [facility] [address] [place] [address], [place] [phone] * Folate (07/02/2024 7:17 AM EST) Pathologist [facility] Folate 6.1 2.8 - 17.0 ng/ml LAB CHEMISTRY METHOD 07/02/2024 12:00 PM EST [facility] Blood Venous blood specimen / Unknown Venipuncture / Unknown 07/02/2024 7:17 AM EST 07/02/2024 9:17 AM EST Michelle Rucker MD LAB BLOOD ORDERABLES Fin al Result Performing Organization Address City/[facility]/ZIP Co de Phone Number [facility] [address] [place] [address], * Magnesium (07/02/2024 7:17 AM EST) Magnesium 2.2 1.9 - 2.6 mg/dL LAB CHEMISTRY METHOD 07/02/2024 11:44 AM EST [facility] Blood Venous blood specimen / Unknown Venipuncture / Unknown 07/02/2024 7:17 AM EST 07/02/2024 9:17 AM EST Michelle Rucker MD LAB BLOOD ORDERABLES Fin al Result Performing Organization Address [facility] Co de Phone Number [facility] [address] [place] [address], * (ABNORMAL) Thyroid stimulating hormone (07/02/2024 7:17 AM EST) TSH 6.64(H) 0.40 - 4.00 mcIU/mL LAB CHEMISTRY METHOD 07/02/2024 12:29 PM EST [facility] Blood Venous blood specimen / Unknown Venipuncture / Unknown 07/02/2024 7:17 AM EST 07/02/2024 9:17 AM EST Michelle Rucker MD LAB BLOOD ORDERABLES Fin al Result Performing Organization Address City/[facility]/ZIP Co de Phone Number [facility] [address] [place] [address], [place] [phone] * (ABNORMAL) Hemoglobin A1c (07/02/2024 7:17 AM EST) Hemoglobin A1C 8.4(H) <6.5 % LAB CHEMISTRY METHOD 07/02/2024 1:47 PM [facility] Mean Bld Glu Estim. 194 mg/dL LAB CHEMISTRY METHOD 07/02/2024 1:47 PM [facility] Blood Venous blood specimen / Unknown Venipuncture / Unknown 07/02/2024 7:17 AM EST 07/02/2024 9:17 AM EST us Michelle Rucker MD LAB BLOOD ORDERABLES Fin al Result [facility] [address] [place] [address], [place] [phone] * (ABNORMAL) Comprehensive metabolic panel (07/02/2024 7:17 AM EST) Sodium 130(L) 133 - 145 mmol/L LAB CHEMISTRY METHOD 07/02/2024 12:14 PM [facility] Potassium 4.8 3.5 - 5.5 mmol/L LAB CHEMISTRY METHOD 07/02/2024 12:14 PM [facility] Chloride 96 96 - 110 mmol/L LAB CHEMISTRY METHOD 07/02/2024 12:14 PM [facility] CO2 26 21 - 32 mmol/L LAB CHEMISTRY METHOD 07/02/2024 12:14 PM [facility] Anion Gap 8 3 - 11 LAB CHEMISTRY METHOD 07/02/2024 12:14 PM [facility] Glucose 452(HH) 70 - 100 mg/dL LAB CHEMISTRY METHOD 07/02/2024 12:14 PM [facility] BUN 31(H) 5 - 25 mg/dL LAB CHEMISTRY METHOD 07/02/2024 12:14 PM [facility] Creatinine 1.53(H) 0.70 - 1.30 mg/dL LAB CHEMISTRY METHOD 07/02/2024 12:14 PM [facility] eGFR 50(L) >=60 mL/min/1. 73m2 LAB CHEMISTRY METHOD 07/02/2024 12:14 PM [facility] Comment:Calculation based on the??Chronic Kidney Disease Epidemiology Collaboration (CKD-EPI) equation refit??without adjustment for race. BUN/Creatinine Ratio 20.3 LAB CHEMISTRY METHOD 07/02/2024 12:14 PM [facility] Calcium 9.8 8.5 - 10.5 mg/dL LAB CHEMISTRY METHOD 07/02/2024 12:14 PM [facility] AST (SGOT) 16 10 - 42 unit/L LAB CHEMISTRY METHOD 07/02/2024 12:14 PM [facility] ALT (SGPT) 13 10 - 60 unit/L LAB CHEMISTRY METHOD 07/02/2024 12:14 PM [facility] Alkaline Phosphatase 84 42 - 121 unit/L LAB CHEMISTRY METHOD 07/02/2024 12:14 PM [facility] Total Protein 6.7 6.0 - 8.0 g/dL LAB CHEMISTRY METHOD 07/02/2024 12:14 PM [facility] Albumin 2.5(L) 3.2 - 5.0 g/dL LAB CHEMISTRY METHOD 07/02/2024 12:14 PM [facility] Total Bilirubin 0.5 0.0 - 1.4 mg/dL LAB CHEMISTRY METHOD 07/02/2024 12:14 PM [facility] Blood Venous blood specimen / Unknown Venipuncture / Unknown 07/02/2024 7:17 AM EST 07/02/2024 9:17 AM EST us Michelle Rucker MD LAB BLOOD ORDERABLES Fin al Result [facility] [address] [place] [address], * (ABNORMAL) Complete blood count (07/02/2024 7:17 AM EST) WBC 9.2 4.8 - 10.8 K/mcL LAB HEMETOLOGY METHOD 07/02/2024 10:51 AM [facility] RBC 4.50 4.50 - 5.50 M/mcL LAB HEMETOLOGY METHOD 07/02/2024 10:51 AM [facility] Hemoglobin 11.5(L) 13.5 - 17.5 g/dL LAB HEMETOLOGY METHOD 07/02/2024 10:51 AM [facility] Hematocrit 37.3(L) 42.0 - 54.0 % LAB HEMETOLOGY METHOD 07/02/2024 10:51 AM [facility] MCV 83.6 79.0 - 98.0 FL LAB HEMETOLOGY METHOD 07/02/2024 10:51 AM [facility] MCH 25.8(L) 27.0 - 32.0 pcg LAB HEMETOLOGY METHOD 07/02/2024 10:51 AM [facility] MCHC 30.8(L) 32.0 - 37.0 g/dL LAB HEMETOLOGY METHOD 07/02/2024 10:51 AM [facility] RDW 15.3(H) 11.0 - 15.0 % LAB HEMETOLOGY METHOD 07/02/2024 10:51 AM [facility] Platelets 322 130 - 400 K/mcL LAB HEMETOLOGY METHOD 07/02/2024 10:51 AM [facility] MPV 10.9 7.0 - 11.0 FL LAB HEMETOLOGY METHOD 07/02/2024 10:51 AM [facility] NRBC 0.0 <1.0 % LAB HEMETOLOGY METHOD 07/02/2024 10:51 AM [facility] NRBC Absolute 0.00 <0.10 K/mcL LAB HEMETOLOGY METHOD 07/02/2024 10:51 AM EST [facility] Blood Venous blood specimen / Unknown Venipuncture / Unknown 07/02/2024 7:17 AM EST 07/02/2024 9:17 AM EST Michelle Rucker MD LAB BLOOD ORDERABLES Fin al Result [facility] [address] [place] [address], documented in this encounter Visit Diagnoses Diagnosis Heart failure, unspecified (CMS/HCC V24, CMS/[facility] V28) Heart failure, unspecified Vitamin D deficiency, unspecified Hyperlipidemia, unspecified Anemia, unspecified Type 1 diabetes mellitus with diabetic neuropathy, unspecified (CMS/HCC V24, CMS/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 Diff Rule-Out Infection 08/14/2024 08/13/2024 0 08/14/2024 11:06 AM EST documented as of this encounter Care Teams Pathology Transcriptionist Relationship Specialty Start Date End Date Michelle Rucker MD [address] [place] [id number] PCP - General Family Medicine 05/06/24 documented as of this encounter
--- OUTSIDE RECORDS SUMMARY | 2024-11-10 12:36 | XMS_ITS | Encounter Summary ---
Author Organization [facility] Address [address] [place] [address] Care Team Providers Care Business Unit Leader Name Role Phone Michelle Rucker MD Primary Care Provider + Encounter Details Date Type Department Care Team (Late st Contact Info) Description 09/08/2024 Lab Requisition [facility] - Main Lab [address] [place] [address] Michelle Rucker MD [address] [phone] Other correction (current) drug therapy; Benign prostatic hyperplasia without lower urinary tract symptoms Social History Tobacco Use Types Packs/Day Years [...] Date/Time Associated Diagnosis Comments TACROLIMUS LEVEL Routine 09/08/2024 7:02 AM EDT Other extermination supervisor (current) drug therapy Benign prostatic hyperplasia without lower urinary tract symptoms documented in this encounter Results * (ABNORMAL) Tacrolimus level (09/08/2024 7:02 AM EDT) Tacrolimus Level 4.0(L) 5.0 - 20.0 ng/mL 09/10/2024 2:02 PM EDT [facility] Comment: Additional Information: Toxic Level [...] developed and the performance characteristics determined by [facility]. This confirmation testing has not been cleared or approved by the FDA. The laboratory is regulated under CLIA as qualified to perform high-complexity testing. This test is used for patient testing purposes. It should not be regarded as investigational or for research. Test performed at [facility], [address] [place], [place] ??[address] ? [phone] Brittanie Horan MD, PhD - [employer] Blood Venous blood specimen / Unknown Venipuncture / Unknown 09/08/2024 7:02 AM EDT 09/08/2024 9:18 AM EDT Michelle Rucker MD LAB BLOOD ORDERABLES Fin al Result [facility] [address] [place] [address] documented in this encounter Visit Diagnoses Diagnosis Other extermination supervisor (current) drug therapy Benign prostatic hyperplasia without lower urinary tract symptoms documented in this encounter Care Teams Business Unit Leader Relationship Specialty Start Date End Date Michelle Rucker MD [address] [place] [address] PCP - General Family Medicine 05/06/24 documented as of this encounter
--- OUTSIDE RECORDS SUMMARY | 2024-11-10 12:36 | XMS_ITS | Encounter Summary ---
Author Organization [facility] Address [address] [place] [address] Care Team Providers Care Executive Sales Assistant Name Role Phone Michelle Rucker MD Primary Care Provider + Encounter Details Date Type Department Care Team (Late st Contact Info) Description 08/14/2024 Lab Requisition [facility] - Main Lab [address] [place] [address] Michelle Rucker MD [address] [phone] Diarrhea, unspecified Social History Tobacco Use Types Packs/Day [...] Procedure Name Priority Date/Time Associated Diagnosis Comments CLOSTRIDIUM DIFFICILE TOXIN Routine 08/13/2024 5:00 PM EST Diarrhea, unspecified documented in this encounter Results * Clostridium difficile toxin (08/13/2024 5:00 PM EST) Clostridium difficile GDH Antigen Negative Negative 08/14/2024 11:06 AM EST [facility] C difficile Toxins A+B, EIA Negative Negative 08/14/2024 11:06 AM EST [facility] Comment:NEGATIVE FOR TOXIN P RODUCING CLOSTRIDIOIDES DIFFICILE, NO ADDITIONAL TESTING IS NECESSARY. Stool Rectum structure / Unknown 08/13/2024 5:00 PM EST 08/14/2024 9:36 AM EST Michelle Rucker MD LAB MICROBIOLOGY - GENER AL ORDERABLES Final Result [facility] ([facility]) [facility] [address] [place] [address], documented in this encounter Visit Diagnoses Diagnosis Diarrhea, unspecified documented in this encounter Additional Health Concerns Infection Onset Date Last Indicated Resolved Time C. Diff Rule-Out Infection 08/14/2024 08/13/2024 0 08/14/2024 11:06 AM EST documented as of this encounter Care Teams Executive Sales Assistant Relationship Specialty Start Date End Date Michelle Rucker MD [address] [place] [id number] PCP - General Family Medicine 05/06/24 documented as of this encounter
--- OUTSIDE RECORDS SUMMARY | 2024-11-10 12:36 | XMS_ITS | Encounter Summary ---
Author Organization [facility] Address [address] [place] [phone] Care Team Providers Care Enchilada Maker Name Role Phone Michelle Rucker MD Primary Care Provider + Encounter Details Date Type Department Care Team (Late st Contact Info) Description 09/25/2024 Lab Requisition [facility] - Main Lab 299 [facility] [place] [address] Michelle Rucker MD [address] [phone] Malignant (primary) neoplasm, unspecified (CMS/HCC V24, CMS/HCC V28); Chronic kidney disease, unspecified Social History Tobacco Use Types Packs/Day Years Used Date Smoking Tobacco: Never Assessed Sex and Gender Information Value Date Recorded Sex Assigned at Not on file Legal Sex Male 7:48 PM EST Gender Identity Not on file Sexual Orientation Not on file documented as of this encounter Plan of Treatment Not on file documented as of this encounter Visit Diagnoses Diagnosis Malignant (primary) neoplasm, unspecified (CMS/HCC V24, CMS/HCC V28) Chronic kidney disease, unspecified documented in this encounter Care Teams Enchilada Maker Relationship Specialty Start Date End Date Michelle Rucker MD [address] [phone] PCP - General Family Medicine 05/06/24 documented as of this encounter
--- OUTSIDE RECORDS SUMMARY | 2024-11-10 12:36 | XMS_ITS | Encounter Summary ---
Author Organization [facility] Address [address] [place] [phone] Care Team Providers Care Geography Department Chair Name Role Phone Michelle Rucker MD Primary Care Provider + Encounter Details Date Type Department Care Team (Late st Contact Info) Description 07/21/2024 Lab Requisition [facility] - Main Lab [address] [facility] [place] [address] Michelle Rucker MD [address] [phone] Vitamin D deficiency, unspecified; Type 1 diabetes mellitus with diabetic neuropathy, unspecified (CMS/HCC V24, CMS/HCC V28); 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; Heart failure, unspecified (CMS/HCC V24, CMS/HCC V28); Hyperlipidemia, unspecified; Anemia, unspecified Social History Tobacco Use Types Packs/Day Years Used Date Smoking Tobacco: Never Assessed Sex and Gender Information Value Date Recorded Sex Assigned at Not on file Legal Sex Male 7:48 PM EST Gender Identity Not on file Sexual Orientation Not on file documented as of this encounter Plan of Treatment Not on file documented as of this encounter Visit Diagnoses Diagnosis Vitamin D deficiency, unspecified Type 1 diabetes mellitus with diabetic neuropathy, unspecified (CMS/HCC V24, CMS/HCC V28) 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 Diff Rule-Out Infection 08/14/2024 08/13/2024 0 08/14/2024 11:06 AM EST documented as of this encounter Care Teams Geography Department Chair Relationship Specialty Start Date End Date Michelle Rucker MD [address] [place] [address] PCP - General Family Medicine 05/06/24 documented as of this encounter
--- OUTSIDE RECORDS SUMMARY | 2024-11-10 12:36 | XMS_ITS | Encounter Summary ---
Author Organization [facility] Address [address] [place] [phone] Care Team Providers Care National Investigative Producer Name Role Phone Michelle Rucker MD Primary Care Provider + Encounter Details Date Type Department Care Team (Late st Contact Info) Description 07/24/2024 Lab Requisition [facility] - Main Lab 299 [facility] [place] [address] Michelle Rucker MD [address] [phone] Malignant (primary) neoplasm, unspecified (CMS/HCC V24, CMS/HCC V28); Unspecified complication of kidney transplant; Type 1 diabetes mellitus with diabetic neuropathy, unspecified (CMS/HCC V24, CMS/HCC V28); Gastro-esophageal reflux disease without esophagitis; Vitamin D deficiency, unspecified Social History Tobacco Use Types Packs/Day [...] Diagnosis Comments VITAMIN D 25 HYDROXY Routine 07/24/2024 7:23 AM EST Malignant (primary) neoplasm, unspecified (CMS/HCC) Unspecified complication of kidney transplant Type 1 diabetes mellitus with diabetic neuropathy, unspecified (CMS/HCC) Gastro-esophageal reflux disease without esophagitis Vitamin D deficiency, unspecified COMPLETE BLOOD COUNT Routine 07/24/2024 7:23 AM EST Malignant (primary) neoplasm, unspecified (CMS/HCC) Unspecified complication of kidney transplant Type 1 diabetes mellitus with diabetic neuropathy, unspecified (CMS/HCC) Gastro-esophageal reflux disease without esophagitis Vitamin D deficiency, unspecified THYROID STIMULATING HORMONE Routine 07/24/2024 7:23 AM EST Malignant (primary) neoplasm, unspecified (CMS/HCC) Unspecified complication of kidney transplant Type 1 diabetes mellitus with diabetic neuropathy, unspecified (CMS/HCC) Gastro-esophageal reflux disease without esophagitis Vitamin D deficiency, unspecified MAGNESIUM Routine 07/24/2024 7:23 AM EST Malignant (primary) neoplasm, unspecified (CMS/HCC) Unspecified complication of kidney transplant Type 1 diabetes mellitus with diabetic neuropathy, unspecified (CMS/HCC) Gastro-esophageal reflux disease without esophagitis Vitamin D deficiency, unspecified HEMOGLOBIN A1C Routine 07/24/2024 7:23 AM EST Malignant (primary) neoplasm, unspecified (CMS/HCC) Unspecified complication of kidney transplant Type 1 diabetes mellitus with diabetic neuropathy, unspecified (CMS/HCC) Gastro-esophageal reflux disease without esophagitis Vitamin D deficiency, unspecified FOLATE Routine 07/24/2024 7:23 AM EST Malignant (primary) neoplasm, unspecified (CMS/HCC) Unspecified complication of kidney transplant Type 1 diabetes mellitus with diabetic neuropathy, unspecified (CMS/HCC) Gastro-esophageal reflux disease without esophagitis Vitamin D deficiency, unspecified VITAMIN B12 Routine 07/24/2024 7:23 AM EST Malignant (primary) neoplasm, unspecified (CMS/HCC) Unspecified complication of kidney transplant Type 1 diabetes mellitus with diabetic neuropathy, unspecified (CMS/HCC) Gastro-esophageal reflux disease without esophagitis Vitamin D deficiency, unspecified RENAL FUNCTION PANEL Routine 07/24/2024 7:23 AM EST Malignant (primary) neoplasm, unspecified (CMS/HCC) Unspecified complication of kidney transplant Type 1 diabetes mellitus with diabetic neuropathy, unspecified (CMS/HCC) Gastro-esophageal reflux disease without esophagitis Vitamin D deficiency, unspecified BASIC METABOLIC PANEL Routine 07/24/2024 7:23 AM EST Malignant (primary) neoplasm, unspecified (CMS/HCC) Unspecified complication of kidney transplant Type 1 diabetes mellitus with diabetic neuropathy, unspecified (CMS/HCC) Gastro-esophageal reflux disease without esophagitis Vitamin D deficiency, unspecified documented in this encounter Results * Vitamin B12 (07/24/2024 7:23 AM EST) Vitamin B-12 829 250 - 900 pcg/mL LAB CHEMISTRY METHOD 07/24/2024 11:18 AM EST [facility] Blood Venous blood specimen / Unknown Venipuncture / Unknown 07/24/2024 7:23 AM EST 07/24/2024 9:40 AM EST Michelle Rucker MD LAB BLOOD ORDERABLES Fin al Result Performing Organization Address City/[facility]/ZIP Co de Phone Number [facility] [address] [place] [address], * Vitamin D 25 hydroxy (07/24/2024 7:23 AM EST) Vit D, 25-Hydroxy 48.6 30.0 - 80.0 ng/mL LAB CHEMISTRY METHOD 07/24/2024 11:01 AM EST [facility] Blood Venous blood specimen / Unknown Venipuncture / Unknown 07/24/2024 7:23 AM EST 07/24/2024 9:40 AM EST Michelle Rucker MD LAB BLOOD ORDERABLES Fin al Result [facility] [address] [place] [address], * Folate (07/24/2024 7:23 AM EST) Folate 9.0 2.8 - 17.0 ng/ml LAB CHEMISTRY METHOD 07/24/2024 11:18 AM EST [facility] Blood Venous blood specimen / Unknown Venipuncture / Unknown 07/24/2024 7:23 AM EST 07/24/2024 9:40 AM EST Michelle Rucker MD LAB BLOOD ORDERABLES Fin al Result Performing Organization Address [facility]/ZIP Co de Phone Number [facility] [address] [place] [address], * (ABNORMAL) Magnesium (07/24/2024 7:23 AM EST) Magnesium 1.7(L) 1.9 - 2.6 mg/dL LAB CHEMISTRY METHOD 07/24/2024 10:52 AM EST [facility] Blood Venous blood specimen / Unknown Venipuncture / Unknown 07/24/2024 7:23 AM EST 07/24/2024 9:40 AM EST Michelle Rucker MD LAB BLOOD ORDERABLES Fin al Result Performing Organization Address [facility] Co de Phone Number [facility] [address] [place] [address], * Thyroid stimulating hormone (07/24/2024 7:23 AM EST) TSH 3.67 0.40 - 4.00 mcIU/mL LAB CHEMISTRY METHOD 07/24/2024 11:01 AM EST [facility] Blood Venous blood specimen / Unknown Venipuncture / Unknown 07/24/2024 7:23 AM EST 07/24/2024 9:40 AM EST Michelle Rucker MD LAB BLOOD ORDERABLES Fin al Result Performing Organization Address City/[facility]/ZIP Co de Phone Number [facility] [address] [place] [address], [place] [phone] * (ABNORMAL) Hemoglobin A1c (07/24/2024 7:23 AM EST) Hemoglobin A1C 8.3(H) <6.5 % LAB CHEMISTRY METHOD 07/24/2024 1:50 PM EST [facility] Mean Bld Glu Estim. 192 mg/dL LAB CHEMISTRY METHOD 07/24/2024 1:50 PM [facility] Blood Venous blood specimen / Unknown Venipuncture / Unknown 07/24/2024 7:23 AM EST 07/24/2024 9:40 AM EST us Michelle Rucker MD LAB BLOOD ORDERABLES Fin al Result [facility] [address] [place] [address], * (ABNORMAL) Renal function panel (07/24/2024 7:23 AM EST) [facility] Sodium 130(L) 133 - 145 mmol/L LAB CHEMISTRY METHOD 07/24/2024 10:55 AM [facility] Potassium 5.3 3.5 - 5.5 mmol/L LAB CHEMISTRY METHOD 07/24/2024 10:55 AM [facility] Chloride 98 96 - 110 mmol/L LAB CHEMISTRY METHOD 07/24/2024 10:55 AM [facility] CO2 26 21 - 32 mmol/L LAB CHEMISTRY METHOD 07/24/2024 10:55 AM [facility] Anion Gap 6 3 - 11 LAB CHEMISTRY METHOD 07/24/2024 10:55 AM [facility] Glucose 335(H) 70 - 100 mg/dL LAB CHEMISTRY METHOD 07/24/2024 10:55 AM [facility] BUN 23 5 - 25 mg/dL LAB CHEMISTRY METHOD 07/24/2024 10:55 AM [facility] Creatinine 1.22 0.70 - 1.30 mg/dL LAB CHEMISTRY METHOD 07/24/2024 10:55 AM [facility] eGFR 65 >=60 mL/min/1. 73m2 LAB CHEMISTRY METHOD 07/24/2024 10:55 AM [facility] Comment:Calculation based on the??Chronic Kidney Disease Epidemiology Collaboration (CKD-EPI) equation refit??without adjustment for race. BUN/Creatinine Ratio 18.9 LAB CHEMISTRY METHOD 07/24/2024 10:55 AM [facility] Albumin 2.5(L) 3.2 - 5.0 g/dL LAB CHEMISTRY METHOD 07/24/2024 10:55 AM [facility] Calcium 9.4 8.5 - 10.5 mg/dL LAB CHEMISTRY METHOD 07/24/2024 10:55 AM [facility] Phosphorus 3.7 2.5 - 4.5 mg/dL LAB CHEMISTRY METHOD 07/24/2024 10:55 AM [facility] Blood Venous blood specimen / Unknown Venipuncture / Unknown 07/24/2024 7:23 AM EST 07/24/2024 9:40 AM EST Michelle Rucker MD LAB BLOOD ORDERABLES Fin al Result [facility] [address] [place] [address], * (ABNORMAL) Basic metabolic panel (07/24/2024 7:23 AM EST) Sodium 130(L) 133 - 145 mmol/L LAB CHEMISTRY METHOD 07/24/2024 10:55 AM [facility] Potassium 5.3 3.5 - 5.5 mmol/L LAB CHEMISTRY METHOD 07/24/2024 10:55 AM [facility] Chloride 98 96 - 110 mmol/L LAB CHEMISTRY METHOD 07/24/2024 10:55 AM [facility] CO2 26 21 - 32 mmol/L LAB CHEMISTRY METHOD 07/24/2024 10:55 AM [facility] Anion Gap 6 3 - 11 LAB CHEMISTRY METHOD 07/24/2024 10:55 AM [facility] Glucose 335(H) 70 - 100 mg/dL LAB CHEMISTRY METHOD 07/24/2024 10:55 AM [facility] BUN 23 5 - 25 mg/dL LAB CHEMISTRY METHOD 07/24/2024 10:55 AM [facility] Creatinine 1.22 0.70 - 1.30 mg/dL LAB CHEMISTRY METHOD 07/24/2024 10:55 AM [facility] eGFR 65 >=60 mL/min/1. 73m2 LAB CHEMISTRY METHOD 07/24/2024 10:55 AM [facility] Comment: Calculation based on the??Chronic Kidney Disease Epidemiology Collaboration (CKD-EPI) equation refit??without adjustment for race. Calculation based on the??Chronic Kidney Disease Epidemiology Collaboration (CKD-EPI) equation refit??without adjustment for race. BUN/Creatinine Ratio 18.9 LAB CHEMISTRY METHOD 07/24/2024 10:55 AM [facility] Calcium 9.4 8.5 - 10.5 mg/dL LAB CHEMISTRY METHOD 07/24/2024 10:55 AM [facility] Blood Venous blood specimen / Unknown Venipuncture / Unknown 07/24/2024 7:23 AM EST 07/24/2024 9:40 AM EST us Michelle Rucker MD LAB BLOOD ORDERABLES Fin al Result [facility] [address] [place] [address], * (ABNORMAL) Complete blood count (07/24/2024 7:23 AM EST) WBC 10.2 4.8 - 10.8 K/mcL LAB HEMETOLOGY METHOD 07/24/2024 10:29 AM [facility] RBC 4.40(L) 4.50 - 5.50 M/mcL LAB HEMETOLOGY METHOD 07/24/2024 10:29 AM [facility] Hemoglobin 11.3(L) 13.5 - 17.5 g/dL LAB HEMETOLOGY METHOD 07/24/2024 10:29 AM [facility] Hematocrit 36.1(L) 42.0 - 54.0 % LAB HEMETOLOGY METHOD 07/24/2024 10:29 AM [facility] MCV 82.8 79.0 - 98.0 FL LAB HEMETOLOGY METHOD 07/24/2024 10:29 AM [facility] MCH 25.9(L) 27.0 - 32.0 pcg LAB HEMETOLOGY METHOD 07/24/2024 10:29 AM [facility] MCHC 31.3(L) 32.0 - 37.0 g/dL LAB HEMETOLOGY METHOD 07/24/2024 10:29 AM [facility] RDW 16.6(H) 11.0 - 15.0 % LAB HEMETOLOGY METHOD 07/24/2024 10:29 AM [facility] Platelets 276 130 - 400 K/mcL LAB HEMETOLOGY METHOD 07/24/2024 10:29 AM [facility] MPV 10.5 7.0 - 11.0 FL LAB HEMETOLOGY METHOD 07/24/2024 10:29 AM [facility] NRBC 0.0 <1.0 % LAB HEMETOLOGY METHOD 07/24/2024 10:29 AM [facility] NRBC Absolute 0.00 <0.10 K/mcL LAB HEMETOLOGY METHOD 07/24/2024 10:29 AM [facility] Blood Venous blood specimen / Unknown Venipuncture / Unknown 07/24/2024 7:23 AM EST 07/24/2024 9:40 AM EST us Michelle Rucker MD LAB BLOOD ORDERABLES Fin al Result [facility] [address] [place] [address], documented in this encounter Visit Diagnoses Diagnosis Malignant (primary) neoplasm, unspecified (CMS/[facility] V24, [facility] V28) Unspecified complication of kidney transplant Type 1 diabetes mellitus with diabetic neuropathy, unspecified (CMS/[facility] V24, [facility] V28) Gastro-esophageal reflux disease without esophagitis Vitamin D deficiency, unspecified documented in this encounter Additional Health Concerns Infection Onset Date Last Indicated Resolved Time C. Diff Rule-Out Infection 08/14/2024 08/13/2024 0 08/14/2024 11:06 AM EST documented as of this encounter Care Teams National Investigative Producer Relationship Specialty Start Date End Date Michelle Rucker MD [address] [place] [id number] PCP - General Family Medicine 05/06/24 documented as of this encounter
--- OUTSIDE RECORDS SUMMARY | 2024-11-10 12:36 | XMS_ITS | Encounter Summary ---
Author Organization [facility] Address [address] [place] [phone] Care Team Providers Care Assistant Store Manager Operations Name Role Phone Michelle Rucker MD Primary Care Provider + Encounter Details Date Type Department Care Team (Late st Contact Info) Description 08/12/2024 Lab Requisition [facility] - Main Lab [address] 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 Hyperlipidemia, unspecified End stage renal disease (CMS/HCC) BASIC METABOLIC PANEL Routine 08/13/2024 7:21 AM EST Type 1 diabetes mellitus with diabetic neuropathy, unspecified (CMS/HCC) 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 Hyperlipidemia, unspecified End stage renal disease (CMS/HCC) documented in this encounter Results * (ABNORMAL) Basic metabolic panel (08/13/2024 7:21 AM EST) Sodium 133 133 - 145 mmol/L LAB CHEMISTRY METHOD 08/13/2024 12:02 PM [facility] Potassium 4.4 3.5 - 5.5 mmol/L LAB CHEMISTRY METHOD 08/13/2024 12:02 PM [facility] Chloride 95(L) 96 - 110 mmol/L LAB CHEMISTRY METHOD 08/13/2024 12:02 PM [facility] CO2 31 21 - 32 mmol/L LAB CHEMISTRY METHOD 08/13/2024 12:02 PM [facility] Anion Gap 7 3 - 11 LAB CHEMISTRY METHOD 08/13/2024 12:02 PM [facility] Glucose 175(H) 70 - 100 mg/dL LAB CHEMISTRY METHOD 08/13/2024 12:02 PM [facility] BUN 34(H) 5 - 25 mg/dL LAB CHEMISTRY METHOD 08/13/2024 12:02 PM [facility] Creatinine 1.27 0.70 - 1.30 mg/dL LAB CHEMISTRY METHOD 08/13/2024 12:02 PM [facility] eGFR 62 >=60 mL/min/1. 73m2 LAB CHEMISTRY METHOD 08/13/2024 12:02 PM [facility] Comment:Calculation based on the??Chronic Kidney Disease Epidemiology Collaboration (CKD-EPI) equation refit??without adjustment for race. BUN/Creatinine Ratio 26.8 LAB CHEMISTRY METHOD 08/13/2024 12:02 PM [facility] Calcium 9.6 8.5 - 10.5 mg/dL LAB CHEMISTRY METHOD 08/13/2024 12:02 PM [facility] Blood Venous blood specimen / Unknown Venipuncture / Unknown 08/13/2024 7:21 AM EST 08/13/2024 11:12 AM EST us Michelle Rucker MD LAB BLOOD ORDERABLES Fin al Result [facility] [address] [place] [address], [place] [phone] * (ABNORMAL) Complete blood count (08/13/2024 7:21 AM EST) WBC 11.4(H) 4.8 - 10.8 K/mcL LAB HEMETOLOGY METHOD 08/13/2024 11:35 AM EST [facility] RBC 3.50(L) 4.50 - 5.50 M/mcL LAB HEMETOLOGY METHOD 08/13/2024 11:35 AM [facility] Hemoglobin 9.2(L) 13.5 - 17.5 g/dL LAB HEMETOLOGY METHOD 08/13/2024 11:35 AM [facility] Hematocrit 29.8(L) 42.0 - 54.0 % LAB HEMETOLOGY METHOD 08/13/2024 11:35 AM [facility] MCV 84.2 79.0 - 98.0 FL LAB HEMETOLOGY METHOD 08/13/2024 11:35 AM [facility] MCH 26.0(L) 27.0 - 32.0 pcg LAB HEMETOLOGY METHOD 08/13/2024 11:35 AM [facility] MCHC 30.9(L) 32.0 - 37.0 g/dL LAB HEMETOLOGY METHOD 08/13/2024 11:35 AM [facility] RDW 15.2(H) 11.0 - 15.0 % LAB HEMETOLOGY METHOD 08/13/2024 11:35 AM [facility] Platelets 360 130 - 400 K/mcL LAB HEMETOLOGY METHOD 08/13/2024 11:35 AM [facility] MPV 11.3(H) 7.0 - 11.0 FL LAB HEMETOLOGY METHOD 08/13/2024 11:35 AM EST [facility] NRBC 0.0 <1.0 % LAB [facility] 08/13/2024 11:35 AM EST [facility] NRBC Absolute 0.00 <0.10 K/mcL LAB HEMETOLOGY METHOD 08/13/2024 11:35 AM EST [facility] Blood Venous blood specimen / Unknown Venipuncture / Unknown 08/13/2024 7:21 AM EST 08/13/2024 11:12 AM EST Michelle Rucker MD LAB BLOOD ORDERABLES Fin al Result [facility] [address] [place] [address], documented in this encounter Visit Diagnoses Diagnosis Type 1 diabetes mellitus with diabetic neuropathy, unspecified (CMS/HCC V24, CMS/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 V28) End stage renal disease documented in this encounter Additional Health Concerns Infection Onset Date Last Indicated Resolved Time C. Diff Rule-Out Infection 08/14/2024 08/13/2024 0 08/14/2024 11:06 AM EST documented as of this encounter Care Teams Assistant Store Manager Operations Relationship Specialty Start Date End Date Michelle Rucker MD [address] [phone] PCP - General Family Medicine 05/06/24 documented as of this encounter
--- OUTSIDE RECORDS SUMMARY | 2024-11-10 12:36 | XMS_ITS | Encounter Summary ---
Author Organization [facility] Address [id number] [place] [phone] Care Team Providers Care Hydroelectric Plant Electrician Name Role Phone Michelle Rucker MD Primary Care Provider + Encounter Details Date Type Department Care Team (Late st Contact Info) Description 06/08/2024 Lab Requisition [facility] - Main Lab 299 [facility] [place] [address] Michelle Rucker MD [address] [phone] Heart failure, unspecified (CMS/HCC V24, CMS/HCC V28); Hyperlipidemia, unspecified; Anemia, unspecified; Type 1 diabetes [...] Associated Diagnosis Comments COMPLETE BLOOD COUNT Routine 06/08/2024 6:35 AM EST Heart failure, unspecified (CMS/HCC) Hyperlipidemia, unspecified Anemia, unspecified Type 1 diabetes mellitus with diabetic neuropathy, unspecified (CMS/HCC) THYROID STIMULATING HORMONE Routine 06/08/2024 6:35 AM EST Heart failure, unspecified (CMS/HCC) Hyperlipidemia, unspecified Anemia, unspecified Type 1 diabetes mellitus with diabetic neuropathy, unspecified (CMS/HCC) MAGNESIUM Routine 06/08/2024 6:35 AM EST Heart failure, unspecified (CMS/HCC) Hyperlipidemia, unspecified Anemia, unspecified Type 1 diabetes mellitus with diabetic neuropathy, unspecified (CMS/HCC) HEMOGLOBIN A1C Routine 06/08/2024 6:35 AM EST Heart failure, unspecified (CMS/HCC) Hyperlipidemia, unspecified Anemia, unspecified Type 1 diabetes mellitus with diabetic neuropathy, unspecified (CMS/HCC) FOLATE Routine 06/08/2024 6:35 AM EST Heart failure, unspecified (CMS/HCC) Hyperlipidemia, unspecified Anemia, unspecified Type 1 diabetes mellitus with diabetic neuropathy, unspecified (CMS/HCC) VITAMIN B12 Routine 06/08/2024 6:35 AM EST Heart failure, unspecified (CMS/HCC) Hyperlipidemia, unspecified Anemia, unspecified Type 1 diabetes mellitus with diabetic neuropathy, unspecified (CMS/HCC) COMPREHENSIVE METABOLIC PANEL Routine 06/08/2024 6:35 AM EST Heart failure, unspecified (CMS/HCC) Hyperlipidemia, unspecified Anemia, unspecified Type 1 diabetes mellitus with diabetic neuropathy, unspecified (CMS/HCC) documented in this encounter Results * (ABNORMAL) Hemoglobin A1c (06/08/2024 6:35 AM EST) Hemoglobin A1C 7.5(H) <6.5 % LAB CHEMISTRY METHOD 06/08/2024 2:45 PM EST [facility] Mean Bld Glu Estim. 169 mg/dL LAB CHEMISTRY METHOD 06/08/2024 2:45 PM EST [facility] Blood Venous blood specimen / Unknown Venipuncture / Unknown 06/08/2024 6:35 AM EST 06/08/2024 12:12 PM EST us Michelle Rucker MD LAB BLOOD ORDERABLES Fin al Result [facility] [address] [place] [address], [place] [phone] * Vitamin B12 (06/08/2024 6:35 AM EST) Pathologist [facility] [place] Vitamin B-12 618 250 - 900 pcg/mL LAB CHEMISTRY METHOD 06/08/2024 6:05 PM EST [facility] Blood Venous blood specimen / Unknown Venipuncture / Unknown 06/08/2024 6:35 AM EST 06/08/2024 12:12 PM EST Michelle Rucker MD LAB BLOOD ORDERABLES Fin al Result [facility] [address] [place] [address], [place] [phone] * (ABNORMAL) Folate (06/08/2024 6:35 AM EST) [facility] Folate 2.1(L) 2.8 - 17.0 ng/ml LAB CHEMISTRY METHOD 06/08/2024 6:05 PM EST [facility] Blood Venous blood specimen / Unknown Venipuncture / Unknown 06/08/2024 6:35 AM EST 06/08/2024 12:12 PM EST Michelle Rucker MD LAB BLOOD ORDERABLES Fin al Result [facility] [address] [place] [address], [place] [phone] * (ABNORMAL) Magnesium (06/08/2024 6:35 AM EST) [facility] Magnesium 1.7(L) 1.9 - 2.6 mg/dL LAB CHEMISTRY METHOD 06/08/2024 5:40 PM EST [facility] Blood Venous blood specimen / Unknown Venipuncture / Unknown 06/08/2024 6:35 AM EST 06/08/2024 12:12 PM EST Michelle Rucker MD LAB BLOOD ORDERABLES Fin al Result Performing Organization Address [facility]/ZIP Co de Phone Number [facility] [address] [place] [address], [place] [phone] * (ABNORMAL) Thyroid stimulating hormone (06/08/2024 6:35 AM EST) TSH 4.31(H) 0.40 - 4.00 mcIU/mL LAB CHEMISTRY METHOD 06/08/2024 5:39 PM [facility] Blood Venous blood specimen / Unknown Venipuncture / Unknown 06/08/2024 6:35 AM EST 06/08/2024 12:12 PM EST Michelle Rucker MD LAB BLOOD ORDERABLES Fin al Result Performing Organization Address [facility]/ZIP Co de Phone Number [facility] [address] [place] [address], [place] [phone] * (ABNORMAL) Comprehensive metabolic panel (06/08/2024 6:35 AM EST) Pathologist [facility] [place] Sodium 139 133 - 145 mmol/L LAB CHEMISTRY METHOD 06/08/2024 6:05 PM [facility] Potassium 3.9 3.5 - 5.5 mmol/L LAB CHEMISTRY METHOD 06/08/2024 6:05 PM [facility] Chloride 106 96 - 110 mmol/L LAB CHEMISTRY METHOD 06/08/2024 6:05 PM [facility] CO2 24 21 - 32 mmol/L LAB CHEMISTRY METHOD 06/08/2024 6:05 PM [facility] Anion Gap 9 3 - 11 LAB CHEMISTRY METHOD 06/08/2024 6:05 PM [facility] Glucose 159(H) 70 - 100 mg/dL LAB CHEMISTRY METHOD 06/08/2024 6:05 PM [facility] BUN 27(H) 5 - 25 mg/dL LAB CHEMISTRY METHOD 06/08/2024 6:05 PM [facility] Creatinine 1.91(H) 0.70 - 1.30 mg/dL LAB CHEMISTRY METHOD 06/08/2024 6:05 PM [facility] eGFR 38(L) >=60 mL/min/1. 73m2 LAB CHEMISTRY METHOD 06/08/2024 6:05 PM [facility] Comment:Calculation based on the??Chronic Kidney Disease Epidemiology Collaboration (CKD-EPI) equation refit??without adjustment for race. BUN/Creatinine Ratio 14.1 LAB CHEMISTRY METHOD 06/08/2024 6:05 PM [facility] Calcium 9.3 8.5 - 10.5 mg/dL LAB CHEMISTRY METHOD 06/08/2024 6:05 PM [facility] AST (SGOT) 13 10 - 42 unit/L LAB CHEMISTRY METHOD 06/08/2024 6:05 PM [facility] ALT (SGPT) 12 10 - 60 unit/L LAB CHEMISTRY METHOD 06/08/2024 6:05 PM [facility] Alkaline Phosphatase 56 42 - 121 unit/L LAB CHEMISTRY METHOD 06/08/2024 6:05 PM [facility] Total Protein 6.3 6.0 - 8.0 g/dL LAB CHEMISTRY METHOD 06/08/2024 6:05 PM [facility] Albumin 2.9(L) 3.2 - 5.0 g/dL LAB CHEMISTRY METHOD 06/08/2024 6:05 PM [facility] Total Bilirubin 0.5 0.0 - 1.4 mg/dL LAB CHEMISTRY METHOD 06/08/2024 6:05 PM [facility] Blood Venous blood specimen / Unknown Venipuncture / Unknown 06/08/2024 6:35 AM EST 06/08/2024 12:12 PM EST us Michelle Rucker MD LAB BLOOD ORDERABLES Fin al Result [facility] [address] [place] [address], * (ABNORMAL) Complete blood count (06/08/2024 6:35 AM EST) WBC 4.2(L) 4.8 - 10.8 K/mcL LAB HEMETOLOGY METHOD 06/08/2024 1:01 PM [facility] RBC 4.50 4.50 - 5.50 M/mcL LAB HEMETOLOGY METHOD 06/08/2024 1:01 PM [facility] Hemoglobin 11.6(L) 13.5 - 17.5 g/dL LAB HEMETOLOGY METHOD 06/08/2024 1:01 PM [facility] Hematocrit 37.4(L) 42.0 - 54.0 % LAB HEMETOLOGY METHOD 06/08/2024 1:01 PM [facility] MCV 82.6 79.0 - 98.0 FL LAB HEMETOLOGY METHOD 06/08/2024 1:01 PM [facility] MCH 25.6(L) 27.0 - 32.0 pcg LAB HEMETOLOGY METHOD 06/08/2024 1:01 PM [facility] MCHC 31.0(L) 32.0 - 37.0 g/dL LAB HEMETOLOGY METHOD 06/08/2024 1:01 PM [facility] RDW 13.7 11.0 - 15.0 % LAB HEMETOLOGY METHOD 06/08/2024 1:01 PM [facility] Platelets 152 130 - 400 K/mcL LAB HEMETOLOGY METHOD 06/08/2024 1:01 PM [facility] MPV 11.4(H) 7.0 - 11.0 FL LAB HEMETOLOGY METHOD 06/08/2024 1:01 PM EST [facility] NRBC 0.0 <1.0 % LAB HEMETOLOGY METHOD 06/08/2024 1:01 PM EST [facility] NRBC Absolute 0.00 <0.10 K/mcL LAB HEMETOLOGY METHOD 06/08/2024 1:01 PM EST [facility] Blood Venous blood specimen / Unknown Venipuncture / Unknown 06/08/2024 6:35 AM EST 06/08/2024 12:12 PM EST us Michelle Rucker MD LAB BLOOD ORDERABLES Fin al Result [facility] [address] [place] [address], documented in this encounter Visit Diagnoses Diagnosis Heart failure, unspecified (CMS/HCC V24, CMS/HCC V28) Heart failure, unspecified Hyperlipidemia, unspecified Anemia, unspecified Type 1 diabetes mellitus with diabetic neuropathy, unspecified (CMS/HCC V24, CMS/HCC V28) documented in this encounter Additional Health Concerns Infection Onset Date Last Indicated Resolved Time C. Diff Rule-Out Infection 08/14/2024 08/13/2024 0 08/14/2024 11:06 AM EST documented as of this encounter Care Teams Hydroelectric Plant Electrician Relationship Specialty Start Date End Date Michelle Rucker MD [address] [place] [phone] PCP - General Family Medicine 05/06/24 documented as of this encounter
--- OUTSIDE RECORDS SUMMARY | 2024-11-10 12:36 | XMS_ITS | Encounter Summary ---
Author Organization [facility] Address [address] [place] [phone] Care Team Providers Care Final Expense Agent Name Role Phone Michelle Rucker MD Primary Care Provider + Encounter Details Date Type Department Care Team (Late st Contact Info) Description 08/10/2024 Lab Requisition [facility] - Main Lab [address] [place] [address] Michelle Rucker MD [address] [phone] Type 1 diabetes mellitus without complications (CMS/HCC V24, CMS/HCC V28) Social History Tobacco [...] Date/Time Associated Diagnosis Comments HEMOGLOBIN A1C Routine 08/10/2024 5:55 AM EST Type 1 diabetes mellitus without complications (CMS/[facility]) documented in this encounter Results * (ABNORMAL) Hemoglobin A1c (08/10/2024 5:55 AM EST) Hemoglobin A1C 8.5(H) <6.5 % LAB CHEMISTRY METHOD 08/10/2024 1:[address] [facility] Mean Bld Glu Estim. 197 mg/dL LAB CHEMISTRY METHOD 08/10/2024 1:[address] [facility] Blood Venous blood specimen / Unknown Venipuncture / Unknown 08/10/2024 5:55 AM EST 08/10/2024 10:32 AM EST Michelle Rucker MD LAB BLOOD ORDERABLES Fin al Result [facility] [address] [place] [address], documented in this encounter Visit Diagnoses Diagnosis Type 1 diabetes mellitus without complications (CMS/HCC V24, CMS/HCC V28) documented in this encounter Additional Health Concerns Infection Onset Date Last Indicated Resolved Time C. Diff Rule-Out Infection 08/14/2024 08/13/2024 0 08/14/2024 11:06 AM EST documented as of this encounter Care Teams Final Expense Agent Relationship Specialty Start Date End Date Michelle Rucker MD [address] [place] [phone] PCP - General Family Medicine 05/06/24 documented as of this encounter
--- OUTSIDE RECORDS SUMMARY | 2024-11-10 12:36 | XMS_ITS | Encounter Summary ---
Author Organization [facility] Address [address] [place] [phone] Care Team Providers Care Crossbow Maker Name Role Phone Michelle Rucker MD Primary Care Provider + Encounter Details Date Type Department Care Team (Late st Contact Info) Description 08/19/2024 Lab Requisition [facility] - Main Lab 299 [facility] [place] [address] Michelle Rucker MD [address] [phone] Type 1 diabetes mellitus with diabetic neuropathy, [...] Associated Diagnosis Comments COMPLETE BLOOD COUNT Routine 08/20/2024 7:05 AM EST Type 1 diabetes mellitus with diabetic neuropathy, unspecified (CMS/HCC) 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 Hyperlipidemia, unspecified End stage renal disease (CMS/HCC) BASIC METABOLIC PANEL Routine 08/20/2024 7:05 AM EST Type 1 diabetes mellitus with diabetic neuropathy, unspecified (CMS/HCC) 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 Hyperlipidemia, unspecified End stage renal disease (CMS/HCC) documented in this encounter Results * (ABNORMAL) Basic metabolic panel (08/20/2024 7:05 AM EST) Sodium 133 133 - 145 mmol/L LAB CHEMISTRY METHOD 08/20/2024 11:10 AM [facility] Potassium 4.4 3.5 - 5.5 mmol/L LAB CHEMISTRY METHOD 08/20/2024 11:10 AM [facility] Chloride 98 96 - 110 mmol/L LAB CHEMISTRY METHOD 08/20/2024 11:10 AM [facility] CO2 31 21 - 32 mmol/L LAB CHEMISTRY METHOD 08/20/2024 11:10 AM [facility] Anion Gap 4 3 - 11 LAB CHEMISTRY METHOD 08/20/2024 11:10 AM [facility] Glucose 158(H) 70 - 100 mg/dL LAB CHEMISTRY METHOD 08/20/2024 11:10 AM [facility] BUN 28(H) 5 - 25 mg/dL LAB CHEMISTRY METHOD 08/20/2024 11:10 AM [facility] Creatinine 1.21 0.70 - 1.30 mg/dL LAB CHEMISTRY METHOD 08/20/2024 11:10 AM [facility] eGFR 66 >=60 mL/min/1. 73m2 LAB CHEMISTRY METHOD 08/20/2024 11:10 AM [facility] Comment:Calculation based on the??Chronic Kidney Disease Epidemiology Collaboration (CKD-EPI) equation refit??without adjustment for race. BUN/Creatinine Ratio 23.1 LAB CHEMISTRY METHOD 08/20/2024 11:10 AM [facility] Calcium 9.7 8.5 - 10.5 mg/dL LAB CHEMISTRY METHOD 08/20/2024 11:10 AM [facility] Blood Venous blood specimen / Unknown Venipuncture / Unknown 08/20/2024 7:05 AM EST 08/20/2024 9:40 AM EST us Michelle Rucker MD LAB BLOOD ORDERABLES Fin al Result [facility] [address] [place] [address], [place] [phone] * (ABNORMAL) Complete blood count (08/20/2024 7:05 AM EST) WBC 8.6 4.8 - 10.8 K/mcL LAB HEMETOLOGY METHOD 08/20/2024 9:55 AM [facility] RBC 3.90(L) 4.50 - 5.50 M/mcL LAB HEMETOLOGY METHOD 08/20/2024 9:55 AM [facility] Hemoglobin 10.0(L) 13.5 - 17.5 g/dL LAB HEMETOLOGY METHOD 08/20/2024 9:55 AM [facility] Hematocrit 32.3(L) 42.0 - 54.0 % LAB HEMETOLOGY METHOD 08/20/2024 9:55 AM [facility] MCV 83.2 79.0 - 98.0 FL LAB HEMETOLOGY METHOD 08/20/2024 9:55 AM [facility] MCH 25.8(L) 27.0 - 32.0 pcg LAB HEMETOLOGY METHOD 08/20/2024 9:55 AM [facility] MCHC 31.0(L) 32.0 - 37.0 g/dL LAB HEMETOLOGY METHOD 08/20/2024 9:55 AM [facility] RDW 14.8 11.0 - 15.0 % LAB HEMETOLOGY METHOD 08/20/2024 9:55 AM [facility] Platelets 369 130 - 400 K/mcL LAB HEMETOLOGY METHOD 08/20/2024 9:55 AM [facility] MPV 10.0 7.0 - 11.0 FL LAB HEMETOLOGY METHOD 08/20/2024 9:55 AM EST [facility] NRBC 0.0 <1.0 % LAB HEMETOLOGY METHOD 08/20/2024 9:55 AM EST [facility] NRBC Absolute 0.00 <0.10 K/mcL LAB HEMETOLOGY METHOD 08/20/2024 9:55 AM EST [facility] Blood Venous blood specimen / Unknown Venipuncture / Unknown 08/20/2024 7:05 AM EST 08/20/2024 9:40 AM EST us Michelle Rucker MD LAB BLOOD ORDERABLES Fin al Result [facility] [address] [place] [address], documented in this encounter Visit Diagnoses Diagnosis Type 1 diabetes mellitus with diabetic neuropathy, unspecified (CMS/HCC V24, CMS/HCC V28) 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
--- OUTSIDE RECORDS SUMMARY | 2024-11-10 12:36 | XMS_ITS | Encounter Summary ---
Author Organization [facility] Address [address] [place] [phone] Care Team Providers Care Measurement Analyst Name Role Phone Michelle Rucker MD Primary Care Provider + Encounter Details Date Type Department Care Team (Late st Contact Info) Description 06/19/2024 Lab Requisition [facility] - Main Lab 299 [facility] [place] [address] Michelle Rucker MD [address] [phone] Hyperlipidemia, unspecified; Heart failure, unspecified (CMS/HCC V24, [...] as of this encounter Visit Diagnoses Diagnosis Hyperlipidemia, unspecified Heart failure, unspecified (CMS/HCC V24, CMS/HCC V28) Heart failure, unspecified Anemia, unspecified Type 1 diabetes mellitus with diabetic neuropathy, unspecified (CMS/HCC V24, CMS/HCC V28) documented in this encounter Additional Health Concerns Infection Onset Date Last Indicated Resolved Time C. Diff Rule-Out Infection 08/14/2024 08/13/2024 0 08/14/2024 11:06 AM EST documented as of this encounter Care Teams Measurement Analyst Relationship Specialty Start Date End Date Michelle Rucker MD [address] [place] [phone] PCP - General Family Medicine 05/06/24 documented as of this encounter
--- OUTSIDE RECORDS SUMMARY | 2024-11-10 12:36 | XMS_ITS | Encounter Summary ---
Author Organization [facility] Address [address] [place] [phone] Care Team Providers Care Gatekeeper Name Role Phone Michelle Rucker MD Primary Care Provider + Encounter Details Date Type Department Care Team (Late st Contact Info) Description 08/13/2024 Lab Requisition [facility] - Main Lab [address] [place] [address] Michelle Rucker MD [address] [phone] Urinary tract infection, site not specified Social [...] Diagnosis Comments URINALYSIS WITH REFLEX MICROSCOPIC Routine 08/12/2024 10:00 PM EST Urinary tract infection, site not specified URINALYSIS WITH REFLEX MICROSCOPIC Routine 08/12/2024 10:00 PM EST Urinary tract infection, site not specified CULTURE URINE Routine 08/12/2024 10:00 PM EST Urinary tract infection, site not specified documented in this encounter Results * (ABNORMAL) Urinalysis with reflex microscopic (08/12/2024 10:00 PM EST) Specific Benedict Urine 1.009 1.003 - 1.030 LAB URINALYSIS - AUTOMATED METHOD 08/13/2024 12:01 PM [facility] pH, Urine 6.5 5.0 - 8.0 pH LAB URINALYSIS - AUTOMATED METHOD 08/13/2024 12:01 PM [facility] Leukocytes, Urine Large(A) Negative LAB URINALYSIS - AUTOMATED METHOD 08/13/2024 12:01 PM [facility] Nitrite, Urine Negative Negative LAB URINALYSIS - AUTOMATED METHOD 08/13/2024 12:01 PM [facility] Protein, Urine Trace <=Trace mg/dL LAB URINALYSIS - AUTOMATED METHOD 08/13/2024 12:01 PM [facility] Glucose, Urine Negative Negative mg/dL LAB URINALYSIS - AUTOMATED METHOD 08/13/2024 12:01 PM [facility] Ketones, Urine Negative Negative mg/dL LAB URINALYSIS - AUTOMATED METHOD 08/13/2024 12:01 PM [facility] Urobilinogen, Urine 0.2 0.2 - 1.0 mg/dL LAB URINALYSIS - AUTOMATED METHOD 08/13/2024 12:01 PM [facility] Bilirubin, Urine Negative Negative LAB URINALYSIS - AUTOMATED METHOD 08/13/2024 12:01 PM [facility] Blood, Urine Moderate(A) Negative LAB URINALYSIS - AUTOMATED METHOD 08/13/2024 12:01 PM [facility] RBC, Urine 4.0 0 - 4 /HPF LAB URINALYSIS - AUTOMATED METHOD 08/13/2024 12:01 PM [facility] WBC, Urine 594.1(H) 0 - 4 /HPF LAB URINALYSIS - AUTOMATED METHOD 08/13/2024 12:01 PM [facility] Squamous Epithelial, Urine 0 0 - 60 /LPF LAB URINALYSIS - AUTOMATED METHOD 08/13/2024 12:01 PM [facility] Bacteria, Urine Moderate(A) Negative /HPF LAB URINALYSIS - AUTOMATED METHOD 08/13/2024 12:01 PM EST [facility] Hyaline Casts, Urine 3.0 0 - 3 /LPF LAB URINALYSIS - AUTOMATED METHOD 08/13/2024 12:01 PM EST [facility] Yeast, Urine 3+(A) None /HPF 08/13/2024 12:01 PM EST [facility] Comment:This is an appended report. These results have been appended to a previously final verified report. Urine Urine specimen from urethra / Unknown 08/12/2024 10:00 PM EST 08/13/2024 11:23 AM EST Michelle Rucker MD LAB URINE ORDERABLES Cristian michael Result - Final Performing Organization Address [facility]/ZIP Co de Phone Number [facility] [address] [place] [address], [place] [phone] * (ABNORMAL) Culture urine (08/12/2024 10:00 PM EST) Culture, Urine 50,000-100, 000 CFU/mL Yolande albicans/du bliniensis( A) 08/15/2024 1:21 PM EST [facility] Comment: Edited result: Previously reported as Yeast on 08/14/2024 at 1054 EST. Urine Urine specimen from urethra / Unknown 08/12/2024 10:00 PM EST 08/13/2024 11:23 AM EST Michelle Rucker MD LAB MICROBIOLOGY - GENER AL ORDERABLES Final Result [facility] [address] [place] [address], [place] [phone] documented in this encounter Visit Diagnoses Diagnosis Urinary tract infection, site not specified documented in this encounter Additional Health Concerns Infection Onset Date Last Indicated Resolved Time C. Diff Rule-Out Infection 08/14/2024 08/13/2024 0 08/14/2024 11:06 AM EST documented as of this encounter Care Teams Gatekeeper Relationship Specialty Start Date End Date Michelle Rucker MD [address] [place] [address] PCP - General Family Medicine 05/06/24 documented as of this encounter
--- OUTSIDE RECORDS SUMMARY | 2024-11-10 12:36 | XMS_ITS | Encounter Summary ---
Author Organization [facility], Address [address] [address] Phone Care Team Providers Care Senior Technologist Name Role Phone Tennille Linton NP Primary Care Provider + Reason for Visit * Reason Comments Med Refill Encounter Details Date Type Department Care Team (Late st Contact Info) Description 07/11/2021 Refill [facility] [address] [place] [address] Denise Isbell PA Social History [...] Visit [facility] [address] [place] [phone] Andrey Phan MD [address] [place] [address] [place] [phone] 12/02/2024 11:30 AM EDT Office Visit [facility] [address] [place] [phone] Andrey Phan MD [address] [place] [address] documented as of this encounter Visit Diagnoses Not on filedocumented in this encounter Care Teams Senior Technologist Relationship Specialty Start Date End Date Tennille Linton NP [address] [place] [phone] PCP - General Nurse Practitioner 08/07/23 documented as of this encounter
--- OUTSIDE RECORDS SUMMARY | 2024-11-10 12:36 | XMS_ITS | Encounter Summary ---
Author Organization [facility] [address] Address [address] [place] [phone] Care Team Providers Care Estimator Lumber Name Role Phone Michelle Rucker MD Primary Care Provider + Encounter Details Date Type Department Care Team (Late st Contact Info) Description 07/30/[address] [facility] - Main Lab 299 [facility] [place] [address] Michelle Rucker MD [address] [place] [address] [phone] Kidney transplant status; Malignant (primary) neoplasm, unspecified (CMS/HCC V24, CMS/HCC V28); Vitamin D deficiency, unspecified Social History Tobacco [...] encounter Visit Diagnoses Diagnosis Kidney transplant status Malignant (primary) neoplasm, unspecified (CMS/HCC V24, CMS/HCC V28) Vitamin D deficiency, unspecified documented in this encounter Additional Health Concerns Infection Onset Date Last Indicated Resolved Time C. Diff Rule-Out Infection 08/14/2024 08/13/2024 0 08/14/2024 11:06 AM EST documented as of this encounter Care Teams Estimator Lumber Relationship Specialty Start Date End Date Michelle Rucker MD [address] [place] [phone] PCP - General Family Medicine 05/06/24 documented as of this encounter
--- OUTSIDE RECORDS SUMMARY | 2024-11-10 12:36 | XMS_ITS | Encounter Summary ---
Author Organization [facility] Address [address] [place] [address] Care Team Providers Care Lathe Turner Name Role Phone Michelle Rucker MD Primary Care Provider + Encounter Details Date Type Department Care Team (Late st Contact Info) Description 10/06/2024 Lab Requisition [facility] - Main Lab 299 [place] [address] Michelle Rucker MD [address] [phone] Other transplanted organ and tissue status Social History Tobacco Use Types Packs/Day [...] Date/Time Associated Diagnosis Comments TACROLIMUS LEVEL Routine 10/06/2024 7:06 AM EDT Other transplanted organ and tissue status documented in this encounter Results * (ABNORMAL) Tacrolimus level (10/06/2024 7:06 AM EDT) Tacrolimus Level 2.7(L) 5.0 - 20.0 ng/mL 10/08/2024 1:05 PM EDT [facility] Comment: Additional Information: [...] performance characteristics determined by [facility]. This confirmation testing has not been cleared or approved by the FDA. The laboratory is regulated under CLIA as qualified to perform high-complexity testing. This test is used for patient testing purposes. It should not be regarded as investigational or for research. Test performed at [facility], [address] , [place], [place] ??[address] ? [phone] Brittanie Horan MD, PhD - Emergency Room Orderly Blood Venous blood specimen / Unknown Venipuncture / Unknown 10/06/2024 7:06 AM EDT 10/06/2024 10:10 AM EDT Michelle Rucker MD LAB BLOOD ORDERABLES Fin al Result [facility] [address] [place] [address] documented in this encounter Visit Diagnoses Diagnosis Other transplanted organ and tissue status documented in this encounter Care Teams Lathe Turner Relationship Specialty Start Date End Date Michelle Rucker MD [address] [place] [phone] PCP - General Family Medicine 05/06/24 documented as of this encounter
--- OUTSIDE RECORDS SUMMARY | 2024-11-10 12:36 | XMS_ITS | Encounter Summary ---
Author Organization [facility] Address [address] [place] [phone] Care Team Providers Care Rice Dryer Mechanic Name Role Phone Michelle Rucker MD Primary Care Provider + Encounter Details Date Type Department Care Team (Late st Contact Info) Description 09/03/2024 Lab Requisition [facility] - Main Lab 299 [facility] [place] [address] Michelle Rucker MD [address] [phone] Type 1 diabetes mellitus with diabetic neuropathy, [...] Associated Diagnosis Comments COMPLETE BLOOD COUNT Routine 09/03/2024 6:15 AM EDT Type 1 diabetes mellitus with diabetic neuropathy, unspecified (CMS/HCC) 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 Hyperlipidemia, unspecified End stage renal disease (CMS/HCC) BASIC METABOLIC PANEL Routine 09/03/2024 6:15 AM EDT Type 1 diabetes mellitus with diabetic neuropathy, unspecified (CMS/HCC) 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 Hyperlipidemia, unspecified End stage renal disease (CMS/HCC) documented in this encounter Results * (ABNORMAL) Basic metabolic panel (09/03/2024 6:15 AM EDT) Sodium 136 133 - 145 mmol/L LAB CHEMISTRY METHOD 09/03/2024 10:30 AM [facility] Potassium 4.2 3.5 - 5.5 mmol/L LAB CHEMISTRY METHOD 09/03/2024 10:30 AM [facility] Chloride 99 96 - 110 mmol/L LAB CHEMISTRY METHOD 09/03/2024 10:30 AM [facility] CO2 30 21 - 32 mmol/L LAB CHEMISTRY METHOD 09/03/2024 10:30 AM [facility] Anion Gap 7 3 - 11 LAB CHEMISTRY METHOD 09/03/2024 10:30 AM [facility] Glucose 157(H) 70 - 100 mg/dL LAB CHEMISTRY METHOD 09/03/2024 10:30 AM [facility] BUN 37(H) 5 - 25 mg/dL LAB CHEMISTRY METHOD 09/03/2024 10:30 AM [facility] Creatinine 1.36(H) 0.70 - 1.30 mg/dL LAB CHEMISTRY METHOD 09/03/2024 10:30 AM [facility] eGFR 57(L) >=60 mL/min/1. 73m2 LAB CHEMISTRY METHOD 09/03/2024 10:30 AM [facility] Comment:Calculation based on the??Chronic Kidney Disease Epidemiology Collaboration (CKD-EPI) equation refit??without adjustment for race. BUN/Creatinine Ratio 27.2 LAB CHEMISTRY METHOD 09/03/2024 10:30 AM [facility] Calcium 9.6 8.5 - 10.5 mg/dL LAB CHEMISTRY METHOD 09/03/2024 10:30 AM [facility] Blood Venous blood specimen / Unknown Venipuncture / Unknown 09/03/2024 6:15 AM EDT 09/03/2024 10:24 AM EDT us Michelle Rucker MD LAB BLOOD ORDERABLES Fin al Result [facility] [address] [place] [address], * (ABNORMAL) Complete blood count (09/03/2024 6:15 AM EDT) [facility] WBC 7.5 4.8 - 10.8 K/mcL LAB HEMETOLOGY METHOD 09/03/2024 10:04 AM EDT [facility] RBC 3.90(L) 4.50 - 5.50 M/mcL LAB HEMETOLOGY METHOD [facility] Hemoglobin 9.9(L) 13.5 - 17.5 g/dL LAB HEMETOLOGY METHOD 09/03/2024 10:04 AM [facility] Hematocrit 30.8(L) 42.0 - 54.0 % LAB HEMETOLOGY METHOD 09/03/2024 10:04 AM [facility] MCV 79.6 79.0 - 98.0 FL LAB HEMETOLOGY METHOD 09/03/2024 10:04 AM EDT [facility] MCH 25.6(L) 27.0 - 32.0 pcg LAB HEMETOLOGY METHOD 09/03/2024 10:04 AM EDT [facility] MCHC 32.1 32.0 - 37.0 g/dL LAB HEMETOLOGY METHOD 09/03/2024 10:04 AM [facility] RDW 14.6 11.0 - 15.0 % LAB HEMETOLOGY METHOD 09/03/2024 10:04 AM [facility] Platelets 313 130 - 400 K/mcL LAB HEMETOLOGY METHOD 09/03/2024 10:04 AM EDT [facility] MPV 10.4 7.0 - 11.0 FL LAB HEMETOLOGY METHOD 09/03/2024 10:04 AM EDT [facility] NRBC 0.0 <1.0 % LAB HEMETOLOGY METHOD 09/03/2024 10:04 AM EDT [facility] NRBC Absolute 0.00 <0.10 K/mcL LAB HEMETOLOGY METHOD 09/03/2024 10:04 AM EDT [facility] Blood Venous blood specimen / Unknown Venipuncture / Unknown 09/03/2024 6:15 AM EDT 09/03/2024 10:03 AM EDT us Michelle Rucker MD LAB BLOOD ORDERABLES Fin al Result [facility] [address] [place] [address], documented in this encounter Visit Diagnoses Diagnosis Type 1 diabetes mellitus with diabetic neuropathy, unspecified (CMS/HCC V24, CMS/HCC V28) 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
--- OUTSIDE RECORDS SUMMARY | 2024-11-10 12:36 | XMS_ITS | Encounter Summary ---
Author Organization [facility] Address [id number] [place] [address] Care Team Providers Care Slitter And Cutter Operator Name Role Phone Michelle Rucker MD Primary Care Provider + Encounter Details Date Type Department Care Team (Late st Contact Info) Description 06/26/2024 Lab Requisition [facility] - Main Lab 299 [facility] [place] [address] Michelle Rucker MD [address] [phone] Hyperlipidemia, unspecified; Heart failure, unspecified (CMS/HCC V24, [...] documented as of this encounter Care Teams Slitter And Cutter Operator Relationship Specialty Start Date End Date Michelle Rucker MD [address] [place] [phone] PCP - General Family Medicine 05/06/24 documented as of this encounter
--- OUTSIDE RECORDS SUMMARY | 2024-11-10 12:36 | XMS_ITS | Encounter Summary ---
Author Organization [facility] Address [address] [place] [address] Care Team Providers Care Divorce Attorney Name Role Phone Michelle Rucker MD Primary Care Provider + Encounter Details Date Type Department Care Team (Late st Contact Info) Description 07/03/2024 Lab Requisition [facility] - Main Lab 299 [place] [address] Michelle Rucker MD [address] [phone] Encounter for therapeutic drug level monitoring Social History Tobacco Use Types Packs/Day Years [...] Date/Time Associated Diagnosis Comments TACROLIMUS LEVEL Routine 07/03/2024 5:42 AM EST Encounter for therapeutic drug level monitoring documented in this encounter Results * (ABNORMAL) Tacrolimus level (07/03/2024 5:42 AM EST) Tacrolimus Level 1.7(L) 5.0 - 20.0 ng/mL 07/06/2024 12:58 PM EST [facility] Comment: Additional Information: [...] developed and the performance characteristics determined by [facility]. This confirmation testing has not been cleared or approved by the FDA. The laboratory is regulated under CLIA as qualified to perform high-complexity testing. This test is used for patient testing purposes. It should not be regarded as investigational or for research. Test performed at [facility], [address], [place], [place] ??[address] ? [phone] Brittanie Horan MD, PhD - Retail Training Manager Blood Venous blood specimen / Unknown Venipuncture / Unknown 07/03/2024 5:42 AM EST 07/03/2024 9:25 AM EST us Michelle Rucker MD LAB BLOOD ORDERABLES Fin al Result Performing Organization Address City/State/[facility] Co de Phone Number [facility] [address] [place] [address] documented in this encounter Visit Diagnoses Diagnosis Encounter for therapeutic drug level monitoring documented in this encounter Additional Health Concerns Infection Onset Date Last Indicated Resolved Time C. Diff Rule-Out Infection 08/14/2024 08/13/2024 0 08/14/2024 11:06 AM EST documented as of this encounter Care Teams Divorce Attorney Relationship Specialty Start Date End Date Michelle Rucker MD [address] [place] [address] PCP - General Family Medicine 05/06/24 documented as of this encounter
--- OUTSIDE RECORDS SUMMARY | 2024-11-10 12:36 | XMS_ITS | Encounter Summary ---
Author Organization [facility] Address [address] [place] [phone] Care Team Providers Care Pickle Pumper Name Role Phone Michelle Rucker MD Primary Care Provider + Encounter Details Date Type Department Care Team (Late st Contact Info) Description 08/26/[address] 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 Hyperlipidemia, unspecified End stage renal disease (CMS/HCC) COMPLETE BLOOD COUNT Routine 08/27/2024 6:26 AM EST Type 1 diabetes mellitus with diabetic neuropathy, unspecified (CMS/HCC) 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 Hyperlipidemia, unspecified End stage renal disease (CMS/HCC) BASIC METABOLIC PANEL Routine 08/27/2024 6:26 AM EST Type 1 diabetes mellitus with diabetic neuropathy, unspecified (CMS/HCC) 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 This confirmation testing has not been cleared or approved by the FDA. The laboratory is regulated under CLIA as qualified to perform high-complexity testing. This test is used for patient testing purposes. It should not be regarded as investigational or for research. Test performed at [facility], [address], [place], [place] ??[address] ? [phone] Brittanie Horan MD, PhD - Block Engraver Blood Venous blood specimen / Unknown Venipuncture / Unknown 08/27/2024 6:26 AM EST 08/27/2024 8:10 AM EST Michelle Rucker MD LAB BLOOD ORDERABLES Fin al Result [facility] [address] [place] [address] * (ABNORMAL) Basic metabolic panel (08/27/2024 6:26 AM EST) Sodium 132(L) 133 - 145 mmol/L LAB CHEMISTRY METHOD 08/27/2024 9:15 AM [facility] Potassium 4.2 3.5 - 5.5 mmol/L LAB CHEMISTRY METHOD 08/27/2024 9:15 AM [facility] Chloride 98 96 - 110 mmol/L LAB CHEMISTRY METHOD 08/27/2024 9:15 AM [facility] CO2 26 21 - 32 mmol/L LAB CHEMISTRY METHOD 08/27/2024 9:15 AM [facility] Anion Gap 8 3 - 11 LAB CHEMISTRY METHOD 08/27/2024 9:15 AM [facility] Glucose 282(H) 70 - 100 mg/dL LAB CHEMISTRY METHOD 08/27/2024 9:15 AM [facility] BUN 29(H) 5 - 25 mg/dL LAB CHEMISTRY METHOD 08/27/2024 9:15 AM [facility] Creatinine 1.29 0.70 - 1.30 mg/dL LAB CHEMISTRY METHOD 08/27/2024 9:15 AM [facility] eGFR 61 >=60 mL/min/1. 73m2 LAB CHEMISTRY METHOD 08/27/2024 9:15 AM EST [facility] Comment:Calculation based on the??Chronic Kidney Disease Epidemiology Collaboration (CKD-EPI) equation refit??without adjustment for race. BUN/Creatinine Ratio 22.5 LAB CHEMISTRY METHOD 08/27/2024 9:15 AM [facility] Calcium 9.8 8.5 - 10.5 mg/dL LAB CHEMISTRY METHOD 08/27/2024 9:15 AM [facility] Blood Venous blood specimen / Unknown Venipuncture / Unknown 08/27/2024 6:26 AM EST 08/27/2024 8:10 AM EST Michelle Rucker MD LAB BLOOD ORDERABLES Fin al Result [facility] [address] [place] [address], * (ABNORMAL) Complete blood count (08/27/2024 6:26 AM EST) WBC 9.7 4.8 - 10.8 K/mcL LAB HEMETOLOGY METHOD 08/27/2024 8:48 AM [facility] RBC 4.00(L) 4.50 - 5.50 M/mcL LAB HEMETOLOGY METHOD 08/27/2024 8:48 AM [facility] Hemoglobin 10.1(L) 13.5 - 17.5 g/dL LAB HEMETOLOGY METHOD 08/27/2024 8:48 AM [facility] Hematocrit 31.6(L) 42.0 - 54.0 % LAB HEMETOLOGY METHOD 08/27/2024 8:48 AM [facility] MCV 79.8 79.0 - 98.0 FL LAB HEMETOLOGY METHOD 08/27/2024 8:48 AM [facility] MCH 25.5(L) 27.0 - 32.0 pcg LAB HEMETOLOGY METHOD 08/27/2024 8:48 AM EST [facility] MCHC 32.0 32.0 - 37.0 g/dL LAB HEMETOLOGY METHOD 08/27/2024 8:48 AM [facility] RDW 15.0 11.0 - 15.0 % LAB HEMETOLOGY METHOD 08/27/2024 8:48 AM [facility] Platelets 348 130 - 400 K/mcL LAB HEMETOLOGY METHOD 08/27/2024 8:48 AM [facility] MPV 10.1 7.0 - 11.0 FL LAB HEMETOLOGY METHOD 08/27/2024 8:48 AM [facility] NRBC 0.0 <1.0 % LAB HEMETOLOGY METHOD 08/27/2024 8:48 AM [facility] NRBC Absolute 0.00 <0.10 K/mcL LAB HEMETOLOGY METHOD 08/27/2024 8:48 AM [facility] Blood Venous blood specimen / Unknown Venipuncture / Unknown 08/27/2024 6:26 AM EST 08/27/2024 8:10 AM EST Michelle Rucker MD LAB BLOOD ORDERABLES Fin al Result [facility] [address] [place] [address], documented in this encounter Visit Diagnoses Diagnosis Type 1 diabetes mellitus with diabetic neuropathy, unspecified (CMS/HCC V24, CMS/HCC V28) 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
--- OUTSIDE RECORDS SUMMARY | 2024-11-10 12:36 | XMS_ITS | Encounter Summary ---
Author Organization [facility] Address [id number] [place] [phone] Care Team Providers Care Outreach Consultant Name Role Phone Michelle Rucker MD Primary Care Provider + Encounter Details Date Type Department Care Team (Late st Contact Info) Description 10/02/[address] [facility] - Main Lab 299 [facility] [place] [address] Michelle Rucker MD [address] [phone] Immunodeficiency, unspecified (CMS/[facility] V24) Social History Tobacco Use Types Packs/Day [...] Procedure Name Priority Date/Time Associated Diagnosis Comments CBC WITH AUTO DIFFERENTIAL Routine 10/02/2024 6:50 AM EDT Immunodeficiency, unspecified (CMS/HCC V24) BK VIRUS PCR QUANTITATIVE Routine 10/02/2024 6:50 AM EDT Immunodeficiency, unspecified (CMS/HCC V24) CBC AND DIFFERENTIAL Routine 10/02/2024 6:50 AM EDT Immunodeficiency, unspecified (CMS/HCC V24) PARATHYROID HORMONE INTACT Routine 10/02/2024 6:50 AM EDT Immunodeficiency, unspecified (CMS/HCC V24) HEMOGLOBIN A1C Routine 10/02/2024 6:50 AM EDT Immunodeficiency, unspecified ([facility] V24) CREATINE KINASE Routine 10/02/2024 6:50 AM EDT Immunodeficiency, unspecified ([facility] V24) RENAL FUNCTION PANEL Routine 10/02/2024 6:50 AM EDT Immunodeficiency, unspecified ([facility] V24) COMPREHENSIVE METABOLIC PANEL Routine 10/02/2024 6:50 AM EDT Immunodeficiency, unspecified ([facility] V24) documented in this encounter Results * (ABNORMAL) CBC auto differential (10/02/2024 6:50 AM EDT) [facility] Signature WBC 6.1 4.8 - 10.8 K/mcL LAB HEMETOLOGY METHOD 10/02/2024 9:04 AM [facility] RBC 4.20(L) 4.50 - 5.50 M/mcL LAB HEMETOLOGY METHOD 10/02/2024 9:04 AM [facility] Hemoglobin 10.4(L) 13.5 - 17.5 g/dL LAB HEMETOLOGY METHOD 10/02/2024 9:04 AM [facility] Hematocrit 33.7(L) 42.0 - 54.0 % LAB HEMETOLOGY METHOD 10/02/2024 9:04 AM [facility] MCV 80.8 79.0 - 98.0 FL LAB HEMETOLOGY METHOD 10/02/2024 9:04 AM [facility] MCH 24.9(L) 27.0 - 32.0 pcg LAB HEMETOLOGY METHOD 10/02/2024 9:04 AM [facility] MCHC 30.9(L) 32.0 - 37.0 g/dL LAB HEMETOLOGY METHOD 10/02/2024 9:04 AM [facility] RDW 14.6 11.0 - 15.0 % LAB HEMETOLOGY METHOD 10/02/2024 9:04 AM [facility] Platelets 270 130 - 400 K/mcL LAB HEMETOLOGY METHOD 10/02/2024 9:04 AM [facility] MPV 10.7 7.0 - 11.0 FL LAB HEMETOLOGY METHOD 10/02/2024 9:04 AM [facility] NRBC 0.0 <1.0 % LAB HEMETOLOGY METHOD 10/02/2024 9:04 AM [facility] NRBC Absolute 0.00 <0.10 K/mcL LAB HEMETOLOGY METHOD 10/02/2024 9:04 AM [facility] Neutrophils Relative 67.4 % LAB HEMETOLOGY METHOD 10/02/2024 9:04 AM [facility] Lymphocytes Relative 16.7 % LAB HEMETOLOGY METHOD 10/02/2024 9:04 AM [facility] Monocytes Relative 11.6 % LAB HEMETOLOGY METHOD 10/02/2024 9:04 AM [facility] Eosinophils Relative 3.3 % LAB HEMETOLOGY METHOD 10/02/2024 9:04 AM [facility] Basophils Relative 0.7 % LAB HEMETOLOGY METHOD 10/02/2024 9:04 AM [facility] Immature Granulocytes Relative 0.3 % LAB HEMETOLOGY METHOD 10/02/2024 9:04 AM [facility] Neutrophils Absolute 4.13 1.50 - 7.00 K/mcL LAB HEMETOLOGY METHOD 10/02/2024 9:04 AM [facility] Lymphocytes Absolute 1.02 1.00 - 5.00 K/mcL LAB HEMETOLOGY METHOD 10/02/2024 9:04 AM [facility] Monocytes Absolute 0.71 0.20 - 1.00 K/mcL LAB HEMETOLOGY METHOD 10/02/2024 9:[address] [facility] Eosinophils Absolute 0.20 0.00 - 0.50 K/[facility] LAB HEMETOLOGY METHOD 10/02/2024 9:[address] [facility] Basophils Absolute 0.04 0.00 - 0.20 K/[facility] LAB HEMETOLOGY METHOD 10/02/2024 9:[address] [facility] Immature Granulocytes Absolute 0.02 0.00 - 0.03 K/[facility] LAB HEMETOLOGY METHOD 10/02/2024 9:[address] [facility] Blood Venous blood specimen / Unknown Venipuncture / Unknown 10/02/2024 6:50 AM EDT 10/02/2024 8:49 AM EDT Michelle Rucker MD LAB BLOOD ORDERABLES Fin al Result Performing Organization Address City/[facility]/ZIP Co de Phone Number [facility] [address] [place] [address], [place] [phone] * Parathyroid hormone intact (10/02/2024 6:50 AM EDT) [facility] PTH 45.7 18.5 - 88.0 pcg/mL LAB CHEMISTRY METHOD 10/02/2024 10:[address] [facility] Blood Venous blood specimen / Unknown Venipuncture / Unknown 10/02/2024 6:50 AM EDT 10/02/2024 8:49 AM EDT Michelle Rucker MD LAB BLOOD ORDERABLES Fin al Result [facility] [address] [place] [address], [place] [phone] * BK virus molecular study quantitative (10/02/2024 6:50 AM EDT) [facility] BK Virus DNA Qual Plasma Not detected Not detected 10/05/2024 12:56 PM EDT [facility] BK Virus DNA Quant Plasma <125 <125 Copies/mL 10/05/2024 12:56 PM EDT [facility] Log BK Virus DNA, Plasma <2.10 <2.10 Log (10) Copies/mL 10/05/2024 12:56 PM EDT [facility] Comment: This test utilizes a polymerase chain reaction to amplify sequences from the VP1 regions of the BK virus genome. ?? Real-time detection and quantification are used to determine the viral copy number. The analytical measurement range is 125 to 5 million copies/mL (2.10 to 6.70 log(10) copies/mL). The qualitative limit of detection is 100 [...] characteristics of this procedure were determined by [facility]. This test is performed pursuant to a license agreement with [employer] Test performed at [facility], [address] , [place], [place] ??[address] ? [phone] Brittanie Horan MD, PhD - Catering Staff Member Blood Venous blood specimen / Unknown Venipuncture / Unknown 10/02/2024 6:50 AM EDT 10/02/2024 8:49 AM EDT us Michelle Rucker MD LAB BLOOD ORDERABLES Fin al Result [facility] [address] [place] [address] * (ABNORMAL) Hemoglobin A1c (10/02/2024 6:50 AM EDT) [facility] Hemoglobin A1C 7.3(H) <6.5 % LAB CHEMISTRY METHOD 10/02/2024 2:[address] [facility] Mean Bld Glu Estim. 163 mg/dL LAB CHEMISTRY METHOD 10/02/2024 2:[address] [facility] Blood Venous blood specimen / Unknown Venipuncture / Unknown 10/02/2024 6:50 AM EDT 10/02/2024 8:49 AM EDT Michelle Rucker MD LAB BLOOD ORDERABLES Fin al Result Performing Organization Address [facility]/ZIP Co de Phone Number [facility] [address] [place] [address], [place] [phone] * Creatine kinase (10/02/2024 6:50 AM EDT) Total CK 27 22 - 269 unit/L LAB CHEMISTRY METHOD 10/02/2024 9:[address] [facility] Blood Venous blood specimen / Unknown Venipuncture / Unknown 10/02/2024 6:50 AM EDT 10/02/2024 8:49 AM EDT Michelle Rucker MD LAB BLOOD ORDERABLES Fin al Result Performing Organization Address [facility] Co de Phone Number [facility] [address] [place] [address], [place] [phone] * (ABNORMAL) Renal function panel (10/02/2024 6:50 AM EDT) Sodium 139 133 - 145 mmol/L LAB CHEMISTRY METHOD 10/02/2024 9:[address] [facility] Potassium 4.5 3.5 - 5.5 mmol/L LAB CHEMISTRY METHOD 10/02/2024 9:[address] [facility] Chloride 105 96 - 110 mmol/L LAB CHEMISTRY METHOD 10/02/2024 9:[address] [facility] CO2 30 21 - 32 mmol/L LAB CHEMISTRY METHOD 10/02/2024 9:31 AM [facility] Anion Gap 4 3 - 11 LAB CHEMISTRY METHOD 10/02/2024 9:31 AM [facility] Glucose 129(H) 70 - 100 mg/dL LAB CHEMISTRY METHOD 10/02/2024 9:31 AM [facility] BUN 32(H) 5 - 25 mg/dL LAB CHEMISTRY METHOD 10/02/2024 9:31 AM [facility] Creatinine 1.26 0.70 - 1.30 mg/dL LAB CHEMISTRY METHOD 10/02/2024 9:31 AM [facility] eGFR 63 >=60 mL/min/1. 73m2 LAB CHEMISTRY METHOD 10/02/2024 9:31 AM [facility] Comment: Calculation based on the??Chronic Kidney Disease Epidemiology Collaboration (CKD-EPI) equation refit??without adjustment for race. Calculation based on the??Chronic Kidney Disease Epidemiology Collaboration (CKD-EPI) equation refit??without adjustment for race. BUN/Creatinine Ratio 25.4 LAB CHEMISTRY METHOD 10/02/2024 9:31 AM [facility] Albumin 2.6(L) 3.2 - 5.0 g/dL LAB CHEMISTRY METHOD 10/02/2024 9:31 AM [facility] Calcium 9.6 8.5 - 10.5 mg/dL LAB CHEMISTRY METHOD 10/02/2024 9:31 AM [facility] Phosphorus 3.5 2.5 - 4.5 mg/dL LAB CHEMISTRY METHOD 10/02/2024 9:31 AM [facility] Blood Venous blood specimen / Unknown Venipuncture / Unknown 10/02/2024 6:50 AM EDT 10/02/2024 8:49 AM EDT us Michelle Rucker MD LAB BLOOD ORDERABLES Fin al Result [facility] [address] [place] [address], * (ABNORMAL) Comprehensive metabolic panel (10/02/2024 6:50 AM EDT) Sodium 139 133 - 145 mmol/L LAB CHEMISTRY METHOD 10/02/2024 9:31 AM [facility] Potassium 4.5 3.5 - 5.5 mmol/L LAB CHEMISTRY METHOD 10/02/2024 9:31 AM [facility] Chloride 105 96 - 110 mmol/L LAB CHEMISTRY METHOD 10/02/2024 9:31 AM [facility] CO2 30 21 - 32 mmol/L LAB CHEMISTRY METHOD 10/02/2024 9:31 AM [facility] Anion Gap 4 3 - 11 LAB CHEMISTRY METHOD 10/02/2024 9:31 AM [facility] Glucose 129(H) 70 - 100 mg/dL LAB CHEMISTRY METHOD 10/02/2024 9:31 AM [facility] BUN 32(H) 5 - 25 mg/dL LAB CHEMISTRY METHOD 10/02/2024 9:31 AM [facility] Creatinine 1.26 0.70 - 1.30 mg/dL LAB CHEMISTRY METHOD 10/02/2024 9:31 AM [facility] eGFR 63 >=60 mL/min/1. 73m2 LAB CHEMISTRY METHOD 10/02/2024 9:31 AM [facility] Comment:Calculation based on the??Chronic Kidney Disease Epidemiology Collaboration (CKD-EPI) equation refit??without adjustment for race. BUN/Creatinine Ratio 25.4 LAB CHEMISTRY METHOD 10/02/2024 9:31 AM [facility] Calcium 9.6 8.5 - 10.5 mg/dL LAB CHEMISTRY METHOD 10/02/2024 9:31 AM [facility] AST (SGOT) 14 10 - 42 unit/L LAB CHEMISTRY METHOD 10/02/2024 9:[address] [facility] ALT (SGPT) 10 10 - 60 unit/L LAB CHEMISTRY METHOD 10/02/2024 9:31 AM [facility] Alkaline Phosphatase 70 42 - 121 unit/L LAB CHEMISTRY METHOD 10/02/2024 9:31 AM [facility] Total Protein 6.8 6.0 - 8.0 g/dL LAB CHEMISTRY METHOD 10/02/2024 9:[address] [facility] Albumin 2.6(L) 3.2 - 5.0 g/dL LAB CHEMISTRY METHOD 10/02/2024 9:31 AM [facility] Total Bilirubin 0.3 0.0 - 1.4 mg/dL LAB CHEMISTRY METHOD 10/02/2024 9:31 AM [facility] Blood Venous blood specimen / Unknown Venipuncture / Unknown 10/02/2024 6:50 AM EDT 10/02/2024 8:49 AM EDT us Michelle Rucker MD LAB BLOOD ORDERABLES Fin al Result [facility] [address] [place] [address], documented in this encounter Visit Diagnoses Diagnosis Immunodeficiency, unspecified (CMS/HCC V24) documented in this encounter Care Teams Outreach Consultant Relationship Specialty Start Date End Date Michelle Rucker MD [address] [place] [phone] PCP - General Family Medicine 05/06/24 documented as of this encounter
--- OUTSIDE RECORDS SUMMARY | 2024-11-10 12:36 | XMS_ITS | Encounter Summary ---
Author Organization [facility] Address [address] [place] [phone] Care Team Providers Care Jewel Staker Name Role Phone Michelle Rucker MD Primary Care Provider + Encounter Details Date Type Department Care Team (Late st Contact Info) Description 07/14/2024 Lab Requisition [facility] - Main Lab 299 [facility] [place] [address] Michelle Rucker MD [address] [phone] Heart failure, unspecified (CMS/HCC V24, CMS/HCC V28); [...] as of this encounter Visit Diagnoses Diagnosis Heart failure, unspecified (CMS/HCC V24, CMS/HCC V28) Heart failure, unspecified Vitamin D deficiency, [...] documented as of this encounter Care Teams Jewel Staker Relationship Specialty Start Date End Date Michelle Rucker MD [address] [place] [address] PCP - General Family Medicine 05/06/24 documented as of this encounter
--- OUTSIDE RECORDS SUMMARY | 2024-11-10 12:36 | XMS_ITS | Encounter Summary ---
Author Organization [facility] Address [address] [place] [address] Care Team Providers Care Medical Radiation Tech Name Role Phone Michelle Rucker MD Primary Care Provider + Encounter Details Date Type Department Care Team (Late st Contact Info) Description 10/13/2024 Lab Requisition [facility] - Main Lab [address] [place] [address] Michelle Rucker MD [address] [phone] Encounter for therapeutic drug level monitoring Social [...] Date/Time Associated Diagnosis Comments TACROLIMUS LEVEL Routine 10/13/2024 6:50 AM EDT Encounter for therapeutic drug level monitoring documented in this encounter Results * (ABNORMAL) Tacrolimus level (10/13/2024 6:50 AM EDT) Tacrolimus Level 4.0(L) 5.0 - 20.0 ng/mL 10/15/2024 11:56 AM EDT [facility] Comment: Additional Information: Toxic [...] developed and the performance characteristics determined by [facility]. This confirmation testing has not been cleared or approved by the FDA. The laboratory is regulated under CLIA as qualified to perform high-complexity testing. This test is used for patient testing purposes. It should not be regarded as investigational or for research. Test performed at [facility], [address] , [place], [place] ??[address] ? [phone] Brittanie Horan MD, PhD - Commissioning Specialist Blood Venous blood specimen / Unknown Venipuncture / Unknown 10/13/2024 6:50 AM EDT 10/13/2024 8:10 AM EDT Michelle Rucker MD LAB BLOOD ORDERABLES Fin al Result [facility] [address] [place] [address] documented in this encounter Visit Diagnoses Diagnosis Encounter for therapeutic drug level monitoring documented in this encounter Care Teams Medical Radiation Tech Relationship Specialty Start Date End Date Michelle Rucker MD [address] [place] [id number] PCP - General Family Medicine 05/06/24 documented as of this encounter
--- OUTSIDE RECORDS SUMMARY | 2024-11-10 12:37 | XMS_ITS | Encounter Summary ---
Author Organization [facility] Address [address] [place] [phone] Care Team Providers Care Airplane Pilot Helper Name Role Phone Michelle Rucker MD Primary Care Provider + Encounter Details Date Type Department Care Team (Late st Contact Info) Description 11/09/2024 Lab Requisition [facility] - Main Lab 299 [facility] [place] [address] Román Betancur MD [address] [facility] [address] [place] [address] Urinary tract infection, site not specified Social History Tobacco Use Types Packs/Day Years Used Date Smoking Tobacco: Never Assessed Sex and Gender Information Value Date Recorded Sex Assigned at Not on file Legal Sex Male 7:48 PM EST Gender Identity Not on file Sexual Orientation Not on file documented as of this encounter Plan of Treatment Pending Results Name Type Priority Associated Diagnoses Date /Time Culture urine Microbiology Routine Urinary tract infection, site not specified 11/09/2024 1:00 PM EDT documented as of this encounter Visit Diagnoses Diagnosis Urinary tract infection, site not specified documented in this encounter Care Teams Airplane Pilot Helper Relationship Specialty Start Date End Date Michelle Rucker MD [address] [facility] [address] [place] [address] PCP - General Family Medicine 05/06/24 documented as of this encounter
--- OUTSIDE RECORDS SUMMARY | 2024-11-10 12:37 | XMS_ITS | Continuity of Care Document ---
Author Organization [facility] Address [address] [place] [address]- Care Team Providers Care Drilling Engineering Manager Name Role Phone Royer TRAILER SECTIONS ASSEMBLER, Tennille Anton Primary Care Physician Encounter [facility] [place] Date(s): 10/08/24 - 11/07/24 [facility] [address] [place] [id number]- Attending Physician: Minnie Yee Admitting Physician: Minnie Yee Referring Physician: Minnie Yee Encounter Type: Triage Allergies, Adverse Reactions, Alerts Substance Criticality Severity Reaction Reaction Severity Status Dilaudid Active oxyCODONE Active Percocet 5/325 nausea Activ e Immunizations Given and Recorded Vaccine Date Status Refusal Reason influenza virus vaccine, inactivated 06/04/24 Give n influenza virus vaccine, inactivated 05/27/23 Blue rded influenza virus vaccine, inactivated 1 04/07/21 Gi rajiv influenza virus vaccine, inactivated 04/18/18 Blue rded influenza virus vaccine, inactivated 02/03/17 Blue rded influenza virus vaccine, inactivated 04/19/16 Blue rded influenza virus vaccine, inactivated 03/18/12 Blue rded SARS-CoV-2(COVID-19)mRNA-LNP vac([id number]) 05/27/23 Recorded [id number] 12y+ bivalent booster vax 05/03/22 Recorded SARS-CoV-2 (COVID-19) mRNA BNT-162b2 vac 03/02/21 Recorded SARS-CoV-2 (COVID-19) mRNA BNT-162b2 vac 08/02/20 Recorded SARS-CoV-2 (COVID-19) mRNA BNT-162b2 vac 1/19/21 Recorded tetanus/diphtheria/pertussis, acel(Tdap) 02/03/17 Recorded pneumococcal 23-valent vaccine 01/16/17 Recorded pneumococcal 23-valent vaccine 07/26/09 Given hepatitis B adult vaccine 2 01/11/15 Given hepatitis B adult vaccine 3 08/04/14 Given hepatitis B adult vaccine 4 07/07/14 Given influ virus vac, H1N1, inactive(oldterm) 07/26/09 Given 1Result Comment: [facility] [id number] 2Admin Note: recombivax 40mcg given by Charisse Rolon RN 3Admin Note: recombivax 40mcg given by Charisse Rolon RN 4Admin Note: Recombivax 40mcg given by Charisse Rolon RN Medications acetaminophen 325 mg oral tablet 650 mg, G Tube, 3 times a day, PRN, Temperature Greater than 100.5, Refills 0, Maintenance, Pain , Mild, 06/30/24 11:47:00 AM EST, Partial fill upon patient request if the prescription is for a schedule II opioid drug. Start Date: 06/30/24 Status: Ordered Repeat number: 1 Artificial Tears preserved solution 1 drops, Eyes, Both, 3 times a day, PRN for dry eyes, Maintenance, 07/29/24 10:27:00 AM EST, Solution, Partial fill upon patient request if the prescription is for a schedule II opioid drug. Start Date: 07/29/24 Status: Ordered Repeat number: 1 Artificial Tears preserved solution 2 drops, Eyes, Both, Every 4 hours, PRN for dry eyes, Maintenance, 07/29/24 10:29:00 AM EST, Solution, Partial fill upon patient request if the prescription is for a schedule II opioid drug. Start Date: 07/29/24 Status: Ordered Repeat number: 1 aspirin 81 mg oral tablet, chewable 81 mg, G Tube, Daily, Refills 0, Maintenance, 06/30/24 11:43:00 AM EST, Partial fill upon patient request if the prescription is for a schedule II opioid drug. Start Date: 06/30/24 Status: Ordered Repeat number: 1 bisacodyl 10 mg rectal suppository 1 supp = 10 mg, Rectally, Daily, PRN for constipation, if milk of mag ineffective, Maintenance, 07/29/24 10:36:00 AM EST, Suppository, Partial fill upon patient request if the prescription is for a schedule II opioid drug. Start Date: 07/29/24 Status: Ordered Repeat number: 1 cholecalciferol 400 iu oral tablet 1 tablet = 10 mcg, G Tube, Daily, 0 Refills, Maintenance, 10/18/21 12:21:00 PM EDT, Partial fill upon patient request if the prescription is for a schedule II opioid drug. Start Date: 10/18/21 Status: Ordered Repeat number: 1 Ciprofloxacin 0.3% Ophth 1 drops, Eye, Left, Every 4 hours, 0 Refills, Maintenance, 06/30/24 11:45:00 AM EST, Ophth Solution, Partial fill upon patient request if the prescription is for a schedule II opioid drug. Start Date: 06/30/24 Stop Date: 07/05/24 Status: Ordered Repeat number: 1 DEXCOM G6 SENSOR MISC Miscellaneous DEXCOM G6 SENSOR MISC Miscellaneous, See Instructions, # 3 Unknown, 11 Refills, Maintenance, USE FOR CONTINUOUS GLUCOSE MONITORING. CHANGE EVERY 10 DAYS., 07/17/24 1:53:00 PM EST, 168, cm, 07/17/24 8:26:00 EST, Height, 71.3, kg, 07/09/24 18:31:00 EST, Dry Weight Start Date: 07/17/24 Status: Ordered Quantity: 3.0 Unit: Unknown Repeat number: 1 Dexcom G7 Sensor Dexcom G7 Sensor, See Instructions, # 3 each, Refills 11, Tot. Refills 11, Maintenance, Use as directed for Diabetes Control. Change every 10 days E10.9, 10/05/24 11:47:00 AM EDT, Supply, 170, cm, 10/05/24 9:46:00 EDT, Height, 65.7, kg, 07/28/24 1:49:00 EST, Dry Weight Start Date: 10/05/24 Status: Ordered Quantity: 3.0 Unit: each Repeat number: 12 Docusate Sodium Capsule 100 mg, 1, capsule, By Mouth, 2 times a day, PRN, Refills 0, Maintenance, Constipation, 06/30/24 11:48:00 AM EST, Partial fill upon patient request if the prescription is for a schedule II opioid drug. Start Date: 06/30/24 Status: Ordered Repeat number: 1 doxazosin 2 mg oral tablet 2 mg, G Tube, Daily, # 30 tablet, Refills 0, Tot. Refills 0, Maintenance, 08/06/24 9:35:00 AM EST, Do Not Route, Partial fill upon patient request if the prescription is for a schedule II opioid drug. Start Date: 08/06/24 Status: Ordered Quantity: 30.0 Unit: tablet Repeat number: 1 ferrous sulfate 325 mg oral enteric coated tablet 325 mg, 1, tablet, By Mouth, Daily, # 30 tablet, Refills 0, Tot. Refills 0, Maintenance, 08/06/24 10:50:00 AM EST, Do Not Route, Partial fill upon patient request if the prescription is for a scheduleII opioid drug. Start Date: 08/06/24 Status: Ordered Quantity: 30.0 Unit: tablet Repeat number: 1 glucose 15 g/31 g oral gel 15g, By Mouth, Once, PRN hypoglycemia, 0 Refills, Maintenance, 07/29/24 10:34:00 AM EST, Partial fillupon patient request if the prescription is for a schedule II opioid drug. Start Date: 07/29/24 Status: Ordered Repeat number: 1 Gvoke HypoPen 1 mg/0.2 mL subcutaneous solution 0.2 mL = 1 mg, Subcutaneous Injection, Once, For if patient is unconscious. to be given by family member. If this medication is used please call 911 after administering., # 0.2 mL, 2 Refills, Soft Stop, 11/14/23 8:54:00 AM EDT, Solution, [facility], Partial fill upon patient requestif the prescription is for a schedule II opioid drug., 168, cm, 11/12/23 9:54:00 EDT, Height, 78, kg, 03/01/23 12:35:00 EDT, Dry Weight Start Date: 11/14/23 Status: Ordered Quantity: 0.2 Unit: mL Repeat number: 3 insulin aspart 100 units/mL subcutaneous solution = 9 units, Subcutaneous Injection, Every 6 hours, # 15 mL, 0 Refills, Maintenance, 08/06/24 9:38:00 AM EST, Injection, Partial fill upon patient request if the prescription is for a schedule II opioiddrug. Start Date: 08/06/24 Status: Ordered Quantity: 15.0 Unit: mL Repeat number: 1 insulin degludec 100 units/mL subcutaneous solution = 25 units, Subcutaneous Injection, Daily, # 15 mL, 0 Refills, Maintenance, 08/06/24 9:44:00 AM EST,Injection, Partial fill upon patient request if the prescription is for a schedule II opioid drug. Start Date: 08/06/24 Status: Ordered Quantity: 15.0 Unit: mL Repeat number: 1 insulin lispro 100 units/mL injectable solution 2-10 units, Subcutaneous Injection, Every 6 hours, << Sliding Scale Comments >> 200 - 249 2 units Call if less than 70 250 - 299 4 units 300 - 349 6 units 350 - 399 8 units 400 - 449 10 units Call if greater than 400 << Sliding Scale Comments >>, # 15 mL, 0 Refills, Maintenance, 08/06/24 9:41:00 AM EST, Injection, Partial fill upon patient request if the prescription is fora schedule II opioid drug. Start Date: 08/06/24 Status: Ordered Quantity: 15.0 Unit: mL Repeat number: 1 ketoconazole 2% topical cream 0 Refills, Maintenance, 10/12/24 3:41:00 PM EDT, Partial fill upon patient request if the prescription is for a schedule II opioid drug. Start Date: 10/12/24 Status: Ordered Repeat number: 1 lactobacillus acidophilus oral capsule 2 capsules, By Mouth, 2 times a day, 0 Refills, Maintenance, 07/28/24 2:43:00 AM EST, Partial fill upon patient request if the prescription is for a schedule II opioid drug. Start Date: 07/28/24 Status: Ordered Repeat number: 1 LORazepam 0.5 mg oral tablet = 0.5 mg, G Tube, Daily at bedtime, Hold for lethargy, 0 Refills, Maintenance, 07/22/24 10:58:00 AM EST, Tablet, Partial fill upon patient request if the prescription is for a schedule II opioid drug. Start Date: 07/22/24 Status: Ordered Repeat number: 1 Maalox Plus Liquid 15 mL, G Tube, 4 times a day, PRN Dyspepsia, 0 Refills, Maintenance, 06/30/24 11:48:00 AM EST, Suspension, Partial fill upon patient request if the prescription is for a schedule II opioid drug. Start Date: 06/30/24 Status: Ordered Repeat number: 1 Magic Mouth Wash 5-10 mL, By Mouth, 3 times a day before meals, use to swab inside of mouth, for oral mucositis fromradiation, 0 Refills, Maintenance, 07/29/24 10:32:00 AM EST, Partial fill upon patient request if theprescription is for a schedule II opioid drug. Start Date: 07/29/24 Status: Ordered Repeat number: 1 Milk of Magnesia 8% oral suspension 30 mL = 2.4 Gm, By Mouth, Daily, PRN for constipation, for no BM in 3 days, 0 Refills, Maintenance,07/29/24 10:35:00 AM EST, Suspension, Partial fill upon patient request if the prescription is for a schedule II opioid drug. Start Date: 07/29/24 Status: Ordered Repeat number: 1 MiraLax oral powder for reconstitution = 17 Gm, By Mouth, Daily, PRN Constipation, Maintenance, 07/29/24 10:14:00 AM EST, REC Powder, Partial fill upon patient request if the prescription is for a schedule II opioid drug. Start Date: 07/29/24 Status: Ordered Repeat number: 1 ondansetron 4 mg oral tablet 0 Refills, Maintenance, 10/12/24 3:40:00 PM EDT, Partial fill upon patient request if the prescription is for a schedule II opioid drug. Start Date: 10/12/24 Status: Ordered Repeat number: 1 ondansetron 4 mg oral tablet 1 tablet = 4 mg, By Mouth, Every 8 hours, # 90 tablet, 0 Refills, Maintenance, 11/06/24 12:18:00 PM EDT, [facility], Partial fill upon patient request if the prescription is for a schedule II opioid drug., 170, cm, 10/12/24 14:37:00 EDT, Height, 65.7, kg, 07/28/24 1:49:00 EST, Dry Weight Start Date: 11/06/24 Stop Date: 12/06/24 Status: Ordered Quantity: 90.0 Unit: tablet Repeat number: 1 pantoprazole 20 mg oral delayed release tablet 1 tablet = 20 mg, By Mouth, Daily in AM, 0 Refills, Maintenance, 06/03/24 9:18:00 PM EST, CR Tablet Start Date: 06/03/24 Status: Ordered Repeat number: 1 Robitussin DM Liquid 10 mL, By Mouth, Every 4 hours, PRN Cough, 0 Refills, Maintenance, 06/30/24 11:48:00 AM EST, Syrup, Partial fill upon patient request if the prescription is for a schedule II opioid drug. Start Date: 06/30/24 Status: Ordered Repeat number: 1 rosuvastatin 40 mg oral tablet 1 tablet = 40 mg, By Mouth, Daily, 0 Refills, Maintenance, 06/03/24 9:25:00 PM EST, Partial fill upon patient request if the prescription is for a schedule II opioid drug. Start Date: 06/03/24 Status: Ordered Repeat number: 1 Senna 8.6 mg oral tablet 8.6 mg, 1, tablet, By Mouth, Once, PRN, Maintenance, as needed for constipation, 07/29/24 10:15:00 AMEST, Partial fill upon patient request if the prescription is for a schedule II opioid drug. Start Date: 07/29/24 Status: Ordered Repeat number: 1 sertraline 100 mg oral tablet 1 tablet = 100 mg, By Mouth, Daily in AM, Maintenance, 07/29/24 10:16:00 AM EST, Tablet, Partial fillupon patient request if the prescription is for a schedule II opioid drug. Start Date: 07/29/24 Status: Ordered Repeat number: 1 simethicone 80 mg oral tablet, chewable 80 mg, Chew, 3 times a day, PRN, Refills 0, Maintenance, Gas, 06/30/24 11:48:00 AM EST, Partial fill upon patient request if the prescription is for a schedule II opioid drug. Start Date: 06/30/24 Status: Ordered Repeat number: 1 tacrolimus 1 mg oral capsule 2 capsule = 2 mg, By Mouth, Daily in AM, 0 Refills, Maintenance, 07/29/24 10:20:00 AM EST, Partial fill upon patient request if the prescription is for a schedule II opioid drug. Start Date: 07/29/24 Status: Ordered Repeat number: 1 tacrolimus 1 mg oral capsule 1 capsule = 1 mg, By Mouth, Daily at bedtime, TDD =3 mg, Maintenance, 07/29/24 10:21:00 AM EST, Partial fill upon patient request if the prescription is for a schedule II opioid drug. Start Date: 07/29/24 Status: Ordered Repeat number: 1 tamsulosin 0.4 mg oral capsule Refills 0, Maintenance, 10/12/24 3:41:00 PM EDT, Partial fill upon patient request if the prescription is for a schedule II opioid drug. Start Date: 10/12/24 Status: Ordered Repeat number: 1 Problem List Condition Confirmation Course Effective Dates Status H ealth Status Informant Acute urinary retention Confirmed Active ATN (acute tubular necrosis) Confirmed Active Memory loss Confirmed Active CVA (cerebrovascular accident) Confirmed Active Chronic kidney disease, stage 3b 1 Confirmed Active COVID-19 2 Confirmed 06/06/24 Active Diabetes mellitus type 1 Confirmed Active Diabetic nephropathy Confirmed Active Family history of lymphoma Confirmed Active History of CVA in adulthood Confirmed Active S/P carpal tunnel release 3 Confirmed Active Kidney transplant status, living unrelated donor 4 Confirmed 08/07/17 Active Hydronephrosis of right kidney Confirmed Active Hypertension Confirmed Active MCI (mild cognitive impairment) Confirmed Active Kidney stone Confirmed 2015 Active Left hemiplegia Confirmed Active Gastrostomy tube dysfunction Confirmed Active Obstructive sleep apnea Confirmed 03/30/21 Active Osteoarthritis of knee Confirmed Active 1Per chart review meets GFR criteria 2Problem added by Discern Expert 3bILAT 2015 4campath induction Social History Social History Type Response Smoking Status Never smoker entered on: 04/12/14 Sex Sex Representation Male (finding) Patient Care team information Care Team Personnel Name: Marcy Gilmore RN Position: [facility] RN Member Role: Primary Care Nurse Name: Cata Pozo RN Position: [facility] RN Member Role: Primary Care Nurse Name: Brittni Woods RN Position: [facility] AMB Nurse Member Role: Primary Care Nurse Name: Gildardo Shin RN Position: [facility] RN Member Role: Primary Care Nurse Name: Mayi Willard RN Position: [facility] RN Member Role: Primary Care Nurse Name: Daisy Palma RN Position: [facility] RN Member Role: Primary Care Nurse Name: Louise Palacios RN Position: [facility] RN Member Role: Primary Care Nurse Name: Renea Bustamante [place] Position: [facility] AMB [place] Member Role: Lifetime Consulting Physician Name: Francine Denney RN Position: [facility] RN Member Role: Primary Care Nurse Name: Zeinab Walker Position: [facility] Outreach Member Role: Lifetime Consulting Physician Name: Benja Deluca RN Position: [facility] RN Member Role: Primary Care Nurse Name: Hussein Gage LPN Position: [facility] RN Member Role: Primary Care Nurse Name: Amauri Mccord RN Position: [facility] RN Member Role: Primary Care Nurse Name: Mayi Adkins RN Position: [facility] RN Member Role: Primary Care Nurse Name: Jennifer Bermeo RN Position: [facility] RN Member Role: Primary Care Nurse Name: Pamela Zambrano RN Position: [facility] OB RN Member Role: Primary Care Nurse Name: Flower Noel RN Position: [facility] RN Member Role: Primary Care Nurse Name: Simon Ortega RN Position: [facility] RN Member Role: Primary Care Nurse Name: Peter Martins RN Position: [facility] RN Member Role: Primary Care Nurse Name: Michelle Astorga NP Position: [facility] Associate Professional Member Role: Lifetime Consulting Provider Address: [address] [facility] [place] [address]- Telecom: Name: Jesus Ortega MD Position: [facility] Renal MD Member Role: Lifetime Consulting Physician Address: [address] [facility] [address] [facility] [place] [address]- Telecom: Name: Anni Ladd RN Position: [facility] RN Member Role: Primary Care Nurse Name: Lilly Alarcon Position: [facility] Outreach Member Role: Lifetime Consulting Physician Name: Giancarlo Collins RN Position: [facility] ED RN W/OE and Tasks Member Role: Primary Care Nurse Name: Starr Baron RN Position: [facility] RN Member Role: Primary Care Nurse Name: Dori Zendejas RN Position: [facility] AMB Nurse Member Role: Primary Care Nurse Name: Kennedy Childs DO Position: [facility] Renal MD Member Role: Lifetime Consulting Physician Address: [address] [facility] [place] [address]- [place] Telecom: Name: Jose Alberto Bergeron RN Position: [facility] RN Member Role: Primary Care Nurse Name: Alhaji Brown RN Position: [facility] RN Member Role: Primary Care Nurse Name: Tennille Linton NP Position: [facility] PCO Associate Professional Member Role: PCP Address: [address] [place] [address]- [place] Telecom: Name: Aline Luke RN Position: [facility] RN Member Role: Primary Care Nurse Name: Mayito Tim LPN Position: [facility] RN Member Role: Primary Care Nurse Name: Tracy Garnica RN Position: S RN Member Role: Primary Care Nurse Name: Rashi Kaur RN Position: S RN Member Role: Primary Care Nurse Name: Brady Copeland RN Position: S RN Member Role: Primary Care Nurse Name: Gaurav Garcia RN Position: S RN Member Role: Primary Care Nurse Name: Rene Ibanez RN Position: [facility] RN Member Role: Primary Care Nurse Name: Amol Hammond RN Position: [facility] RN Member Role: Primary Care Nurse Name: Meme Pat RN Position: [facility] RN Member Role: Primary Care Nurse Name: Aicha Cao RN Position: [facility] RN Member Role: Primary Care Nurse Name: Kathe Lynn RN Position: [facility] RN Member Role: Primary Care Nurse Name: Swapnil Bolanos MD Position: [facility] Renal MD Member Role: Lifetime Consulting Physician Address: [address] [place] [address] [facility] [place] [place] [address]- Telecom: Name: Carly Lopez RN Position: [facility] RN Member Role: Primary Care Nurse Name: Erica Arizmendi RN Position: [facility] RN Member Role: Primary Care Nurse Name: Reji Kan RN Position: [facility] RN Member Role: Primary Care Nurse Name: Esequiel Lenz RN Position: [facility] RN Member Role: Primary Care Nurse Name: Ramila Perez RN Position: [facility] RN Member Role: Primary Care Nurse Name: Johnnie Moore RN Position: [facility] RN Member Role: Primary Care Nurse Name: Duglas Forrester MD Position: [facility] Renal MD Member Role: Lifetime Consulting Physician Address: [address] [place], [place] [id number] [facility] [place] [address]- [place] Telecom: Name: Renea Angel RN Position: [facility] RN Member Role: Primary Care Nurse Care Team Related Persons Name: TRISH AU Name: PATT BEEBE Name: MAYITO ROSA Insurance Providers Guarantor name: [facility] Information #: 1 Payer: [facility] Member Number: NA Policy Number: NA Group Number: NA Health Plan Information #: 2 Payer: [facility] Member Number: NA Policy Number: NA Group Number: NA
--- OUTSIDE RECORDS SUMMARY | 2024-11-10 12:37 | XMS_ITS | Encounter Summary ---
Author Organization [facility] Address [address] [place] [address] Care Team Providers Care Bicycle Repairman Name Role Phone Michelle Rucker MD Primary Care Provider + Encounter Details Date Type Department Care Team (Late st Contact Info) Description 10/29/2024 Lab Requisition [facility] - Main Lab [address] [place] [address] Michelle Rucker MD [address] [phone] Weakness Social History Tobacco Use Types Packs/Day Years [...] Associated Diagnosis Comments COMPLETE BLOOD COUNT Routine 10/29/2024 7:50 AM EDT Weakness COMPREHENSIVE METABOLIC PANEL Routine 10/29/2024 7:50 AM EDT Weakness documented in this encounter Results * (ABNORMAL) Comprehensive metabolic panel (10/29/2024 7:50 AM EDT) Sodium 140 133 - 145 mmol/L LAB CHEMISTRY METHOD 10/29/2024 11:00 AM EDT [facility] Potassium 4.6 3.5 - 5.5 mmol/L LAB CHEMISTRY METHOD 10/29/2024 11:00 AM EDT [facility] Chloride 106 96 - 110 mmol/L LAB CHEMISTRY METHOD 10/29/2024 11:00 AM [facility] CO2 27 21 - 32 mmol/L LAB CHEMISTRY METHOD 10/29/2024 11:00 AM [facility] Anion Gap 7 3 - 11 LAB CHEMISTRY METHOD 10/29/2024 11:00 AM [facility] Glucose 154(H) 70 - 100 mg/dL LAB CHEMISTRY METHOD 10/29/2024 11:00 AM [facility] BUN 34(H) 5 - 25 mg/dL LAB CHEMISTRY METHOD 10/29/2024 11:00 AM [facility] Creatinine 2.16(H) 0.70 - 1.30 mg/dL LAB CHEMISTRY METHOD 10/29/2024 11:00 AM [facility] eGFR 33(L) >=60 mL/min/1. 73m2 LAB CHEMISTRY METHOD 10/29/2024 11:00 AM [facility] Comment:Calculation based on the Chronic Kidney Disease Epidemiology Collaboration (CKD-EPI) equation refit without adjustment for race. BUN/Creatinine Ratio 15.7 LAB CHEMISTRY METHOD 10/29/2024 11:00 AM [facility] Calcium 9.1 8.5 - 10.5 mg/dL LAB CHEMISTRY METHOD 10/29/2024 11:00 AM [facility] AST (SGOT) 14 10 - 42 unit/L LAB CHEMISTRY METHOD 10/29/2024 11:00 AM [facility] ALT (SGPT) 11 10 - 60 unit/L LAB CHEMISTRY METHOD 10/29/2024 11:00 AM [facility] Alkaline Phosphatase 58 42 - 121 unit/L LAB CHEMISTRY METHOD 10/29/2024 11:00 AM [facility] Total Protein 6.6 6.0 - 8.0 g/dL LAB CHEMISTRY METHOD 10/29/2024 11:00 AM [facility] Albumin 2.7(L) 3.2 - 5.0 g/dL LAB CHEMISTRY METHOD 10/29/2024 11:00 AM [facility] Total Bilirubin 0.7 0.0 - 1.4 mg/dL LAB CHEMISTRY METHOD 10/29/2024 11:00 AM [facility] Blood Venous blood specimen / Unknown Venipuncture / Unknown 10/29/2024 7:50 AM EDT 10/29/2024 9:52 AM EDT us Michelle Rucker MD LAB BLOOD ORDERABLES Fin al Result [facility] [address] [place] [address], * (ABNORMAL) Complete blood count (10/29/2024 7:50 AM EDT) WBC 6.6 4.8 - 10.8 K/mcL LAB HEMETOLOGY METHOD 10/29/2024 10:17 AM [facility] RBC 4.40(L) 4.50 - 5.50 M/mcL LAB HEMETOLOGY METHOD 10/29/2024 10:17 AM [facility] Hemoglobin 10.7(L) 13.5 - 17.5 g/dL LAB HEMETOLOGY METHOD 10/29/2024 10:17 AM [facility] Hematocrit 35.0(L) 42.0 - 54.0 % LAB HEMETOLOGY METHOD 10/29/2024 10:17 AM [facility] MCV 79.0 79.0 - 98.0 FL LAB HEMETOLOGY METHOD 10/29/2024 10:17 AM [facility] MCH 24.2(L) 27.0 - 32.0 pcg LAB HEMETOLOGY METHOD 10/29/2024 10:17 AM [facility] MCHC 30.6(L) 32.0 - 37.0 g/dL LAB HEMETOLOGY METHOD 10/29/2024 10:17 AM EDT [facility] RDW 14.8 11.0 - 15.0 % LAB HEMETOLOGY METHOD 10/29/2024 10:17 AM EDT [facility] Platelets 248 130 - 400 K/mcL LAB HEMETOLOGY METHOD 10/29/2024 10:17 AM EDT [facility] MPV 10.5 7.0 - 11.0 FL LAB HEMETOLOGY METHOD 10/29/2024 10:17 AM EDT [facility] NRBC 0.0 <1.0 % LAB HEMETOLOGY METHOD 10/29/2024 10:17 AM EDT [facility] NRBC Absolute 0.00 <0.10 K/mcL [facility] 10/29/2024 10:17 AM EDT [facility] Blood Venous blood specimen / Unknown Venipuncture / Unknown 10/29/2024 7:50 AM EDT 10/29/2024 9:52 AM EDT us Michelle Rucker MD LAB BLOOD ORDERABLES Fin al Result [facility] [address] [place] [address], documented in this encounter Visit Diagnoses Diagnosis Weakness Other malaise and fatigue documented in this encounter Care Teams Bicycle Repairman Relationship Specialty Start Date End Date Michelle Rucker MD [address] [place] [id number] PCP - General Family Medicine 05/06/24 documented as of this encounter
--- OUTSIDE RECORDS SUMMARY | 2024-11-10 12:37 | XMS_ITS | Encounter Summary ---
Author Organization [facility] Address [id number] [place] [phone] Care Team Providers Care Cryptological Technician Name Role Phone Michelle Rucker MD Primary Care Provider + Encounter Details Date Type Department Care Team (Late st Contact Info) Description 10/19/2024 Lab Requisition [facility] - Main Lab [address] [place] [address] Michelle Rucker MD [address] [phone] Acute kidney failure, unspecified (CMS/HCC V24); Encounter for therapeutic drug level monitoring Social [...] Date/Time Associated Diagnosis Comments TACROLIMUS LEVEL Routine 10/20/2024 8:08 AM EDT Acute kidney failure, unspecified (CMS/HCC V24) Encounter for therapeutic drug level monitoring documented in this encounter Results * Tacrolimus level (10/20/2024 8:08 AM EDT) Tacrolimus Level 6.8 5.0 - 20.0 ng/mL 10/22/2024 10:58 AM EDT [facility] Comment: Additional Information: Toxic Level ?> 26 [...] developed and the performance characteristics determined by [facility]. This confirmation testing has not been cleared or approved by the FDA. The laboratory is regulated under CLIA as qualified to perform high-complexity testing. This test is used for patient testing purposes. It should not be regarded as investigational or for research. Test performed at [facility], [address] [place], [place] [address] ? [phone] Brittanie Horan MD, PhD - Diamond Wheel Edger Blood Venous blood specimen / Unknown Venipuncture / Unknown 10/20/2024 8:08 AM EDT 10/20/2024 9:11 AM EDT us Michelle Rucker MD LAB BLOOD ORDERABLES Fin al Result [facility] [address] [place] [address] documented in this encounter Visit Diagnoses Diagnosis Acute kidney failure, unspecified (CMS/HCC V24) Acute kidney failure, unspecified Encounter for therapeutic drug level monitoring documented in this encounter Care Teams Cryptological Technician Relationship Specialty Start Date End Date Michelle Rucker MD [address] [place] [address] PCP - General Family Medicine 05/06/24 documented as of this encounter
--- OUTSIDE RECORDS SUMMARY | 2024-11-10 12:37 | XMS_ITS | Encounter Summary ---
Author Organization [facility] Address [address] [place] [phone] Care Team Providers Care Automotive Lube Technician Name Role Phone Michelle Rucker MD Primary Care Provider + Encounter Details Date Type Department Care Team (Late st Contact Info) Description 10/24/2024 Lab Requisition [facility] - Main Lab [address] [facility] [place] [address] Michelle Rucker MD [address] [phone] Kidney transplant status Social History Tobacco Use [...] encounter Visit Diagnoses Diagnosis Kidney transplant status documented in this encounter Care Teams Automotive Lube Technician Relationship Specialty Start Date End Date Michelle Rucker MD [address] [place] [phone] PCP - General Family Medicine 05/06/24 documented as of this encounter
--- OUTSIDE RECORDS SUMMARY | 2024-11-10 12:37 | XMS_ITS | Encounter Summary ---
Author Organization [facility] Address [address] [place] [address] Care Team Providers Care Web Project Manager Name Role Phone Michelle Rucker MD Primary Care Provider + Encounter Details Date Type Department Care Team (Late st Contact Info) Description 10/28/2024 Lab Requisition [facility] - Main Lab [address] [facility] [place] [address] Michelle Rucker MD [address] [phone] Urinary tract infection, site not specified Social [...] URINALYSIS WITH REFLEX MICROSCOPIC AND CULTURE Routine 10/28/2024 12:00 AM EDT Urinary tract infection, site not specified SCOTT URINE CULTURE TUBE Routine 10/28/2024 12:00 AM EDT Urinary tract infection, site not specified URINALYSIS WITH REFLEX MICROSCOPIC AND CULTURE Routine 10/28/2024 12:00 AM EDT Urinary tract infection, site not specified CULTURE URINE Routine 10/28/2024 12:00 AM EDT Urinary tract infection, site not specified documented in this encounter Results * Culture urine (10/28/2024 12:00 AM EDT) [facility] Culture, Urine <10,000 CFU/mL Yeast, insignificant count, no further workup 10/29/2024 10:40 AM [facility] Urine Urine specimen obtained by clean catch procedure / Unknown Non-blood Collection / Unknown 10/28/2024 10/28/2024 12:21 PM EDT us Michelle Rucker MD LAB MICROBIOLOGY - [facility] AL ORDERABLES Final Result [facility] [address] [place] [address], [place] [phone] * (ABNORMAL) Urinalysis with reflex microscopic and culture (10/28/2024 12:00 AM EDT) [facility] Specific [place] Urine 1.010 1.003 - 1.030 LAB URINALYSIS - AUTOMATED METHOD 10/28/2024 12:21 PM [facility] pH, Urine 7.0 5.0 - 8.0 pH LAB URINALYSIS - AUTOMATED METHOD 10/28/2024 12:21 PM [facility] Leukocytes, Urine Large(A) Negative LAB URINALYSIS - AUTOMATED METHOD 10/28/2024 12:21 PM [facility] Nitrite, Urine Negative Negative LAB URINALYSIS - AUTOMATED METHOD 10/28/2024 12:21 PM [facility] Protein, Urine 100(A) <=Trace mg/dL LAB URINALYSIS - AUTOMATED METHOD 10/28/2024 12:21 PM [facility] Glucose, Urine Negative Negative mg/dL LAB URINALYSIS - AUTOMATED METHOD 10/28/2024 12:21 PM [facility] Ketones, Urine Negative Negative mg/dL LAB URINALYSIS - AUTOMATED METHOD 10/28/2024 12:21 PM [facility] Urobilinogen , Urine 0.2 0.2 - 1.0 mg/dL LAB URINALYSIS - AUTOMATED METHOD 10/28/2024 12:21 PM [facility] Bilirubin, Urine Negative Negative LAB URINALYSIS - AUTOMATED METHOD 10/28/2024 12:21 PM [facility] Blood, Urine Moderate(A) Negative LAB URINALYSIS - AUTOMATED METHOD 10/28/2024 12:21 PM [facility] RBC, Urine 2.3 0 - 4 /HPF LAB URINALYSIS - AUTOMATED METHOD 10/28/2024 12:21 PM [facility] WBC, Urine 647.0(H) 0 - 4 /HPF LAB URINALYSIS - AUTOMATED METHOD 10/28/2024 12:21 PM [facility] Squamous Epithelial, Urine 28 0 - 60 /LPF LAB URINALYSIS - AUTOMATED METHOD 10/28/2024 12:21 PM [facility] Bacteria, Urine Few(A) Negative /HPF LAB URINALYSIS - AUTOMATED METHOD 10/28/2024 12:21 PM [facility] Hyaline Casts, Urine 3.2(H) 0 - 3 /LPF LAB URINALYSIS - AUTOMATED METHOD 10/28/2024 12:21 PM [facility] Yeast, Urine Present(A) None /HPF LAB URINALYSIS - AUTOMATED METHOD 10/28/2024 12:21 PM [facility] Urine Urine specimen obtained by clean catch procedure / Unknown Non-blood Collection / Unknown 10/28/2024 10/28/2024 10:05 AM EDT us Michelle Rucker MD LAB URINE ORDERABLES Fin al Result [facility] [address] [place] [address], * Scott urine culture tube (10/28/2024 12:00 AM EDT) Extra Tube Hold for add-ons. 10/28/2024 1:01 PM EDT [facility] Comment:Auto resulted. Urine Urine specimen obtained by clean catch procedure / Unknown Non-blood Collection / Unknown 10/28/2024 10/28/2024 10:05 AM EDT us Michelle Rucker MD LAB URINE ORDERABLES Fin al Result [facility] [address] [place] [address], documented in this encounter Visit Diagnoses Diagnosis Urinary tract infection, site not specified documented in this encounter Care Teams Web Project Manager Relationship Specialty Start Date End Date Michelle Rucker MD [address] [place] [phone] PCP - General Family Medicine 05/06/24 documented as of this encounter
--- OUTSIDE RECORDS SUMMARY | 2024-11-10 12:37 | XMS_ITS | Encounter Summary ---
Author Organization [facility] Address [address] [place] [address] Care Team Providers Care Mule Rider Name Role Phone Michelle Rucker MD Primary Care Provider + Encounter Details Date Type Department Care Team (Late st Contact Info) Description 10/26/2024 Lab Requisition [facility] - Main Lab [address] [place] [address] Michelle Rucker MD [address] [phone] Kidney transplant status Social History Tobacco Use [...] Date/Time Associated Diagnosis Comments TACROLIMUS LEVEL Routine 10/27/2024 8:34 AM EDT Kidney transplant status documented in this encounter Results * (ABNORMAL) Tacrolimus level (10/27/2024 8:34 AM EDT) Tacrolimus Level 22.5(H) 5.0 - 20.0 ng/mL 10/29/2024 2:15 PM EDT [facility] Comment: Additional Information: [...] [facility], [address], [place], [place] ??[address] ? [phone] Brittanie Horan MD, PhD - Jr. Java Developer Blood Venous blood specimen / Unknown Venipuncture / Unknown 10/27/2024 8:34 AM EDT 10/27/2024 9:32 AM EDT us Michelle Rucker MD LAB BLOOD ORDERABLES Fin al Result Performing Organization Address City/State/[facility] Co de Phone Number [facility] [address] [place] [address] documented in this encounter Visit Diagnoses Diagnosis Kidney transplant status documented in this encounter Care Teams Mule Rider Relationship Specialty Start Date End Date Michelle Rucker MD [address] [address] PCP - General Family Medicine 05/06/24 documented as of this encounter
--- OUTSIDE RECORDS SUMMARY | 2024-11-10 12:37 | XMS_ITS | Clinical Summary ---
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 Role Phone Michelle Rucker MD Primary Care Provider + Encounters Date Type Department Care Team Description 11/09/2024 Lab Requisition [facility] [address] [place] [phone] Román Betancur MD Urinary tract infection, site not specified 10/30/2024 Lab Requisition [facility] [address] [place] [phone] Michelle Rucker MD Chronic kidney disease, stage 4 (severe) (CMS/HCC V24, CMS/HCC V28) 10/29/2024 Lab Requisition [facility] [address] [place] [phone] Michelle Rucker MD Weakness 10/28/2024 Lab Requisition [facility] [address] [place] [phone] Michelle Rucker MD Urinary tract infection, site not specified 10/26/2024 Lab Requisition [facility] [address] [place] [phone] Michelle Rucker MD Kidney transplant status 10/24/2024 Lab Requisition [facility] [address] [place] [phone] Michelle Rucker MD Kidney transplant status 10/19/2024 Lab Requisition [facility] [address] [place] [phone] Michelle Rucker MD Acute kidney failure, unspecified ([facility] V24); Encounter for therapeutic drug level monitoring 10/13/2024 Lab Requisition [facility] [address] [place] [phone] Michelle Rucker MD Encounter for therapeutic drug level monitoring 10/06/2024 Lab Requisition [facility] [address] [place] [phone] Michelle Rucker MD Other transplanted organ and tissue status 10/02/2024 Lab Requisition [facility] [address] [place] [phone] Michelle Rucker MD Immunodeficiency, unspecified ([facility] V24) 10/02/2024 Lab Requisition [facility] [address] [place] [phone] Michelle Rucker MD Acute kidney failure, unspecified ([facility] V24); Other acute kidney failure (CMS/[facility] V24) 09/25/2024 Lab Requisition [facility] [address] [place] [phone] Michelle Rucker MD Malignant (primary) neoplasm, unspecified (CMS/[facility] V24, CMS/[facility] V28); Chronic kidney disease, unspecified 09/08/2024 Lab Requisition [facility] [address] [place] [phone] Michelle Rucker MD Other long-term (current) drug therapy; Benign prostatic hyperplasia without lower urinary tract symptoms 09/03/2024 Lab Requisition [facility] [address] [place] [phone] Michelle Rucker MD Type 1 diabetes mellitus with diabetic neuropathy, unspecified (CMS/[facility] V24, CMS/[facility] V28); 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; Hyperlipidemia, unspecified; End stage renal disease ([facility] V24, [facility] V28) 08/26/2024 Lab Requisition [facility] [address] [place] [phone] Michelle Rucker MD Type 1 diabetes mellitus with diabetic neuropathy, unspecified ([facility] V24, [facility] V28); 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; Hyperlipidemia, unspecified; End stage renal disease ([facility] V24, [facility] V28) 08/19/2024 Lab Requisition [facility] [address] [place] [phone] Michelle Rucker MD Type 1 diabetes mellitus with diabetic neuropathy, unspecified [facility]); 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; Hyperlipidemia, unspecified; End stage renal disease ([facility] V24, [facility]) 08/14/2024 Lab Requisition [facility] [address] [place] [phone] Michelle Rucker MD Diarrhea, unspecified 08/13/2024 Lab Requisition [facility] [address] [place] [phone] Michelle Rucker MD Vitamin D deficiency, unspecified; Malignant (primary) neoplasm, unspecified ([facility] V24, [facility] V28); Kidney transplant status 08/12/2024 Lab Requisition [facility] [address] [place] [phone] Michelle Rucker MD Type 1 diabetes mellitus with diabetic neuropathy, unspecified ([facility] V24, [facility] V28); 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; Hyperlipidemia, unspecified; End stage renal disease ([facility] V24, [facility] V28) from Last 3 Months Social History Tobacco Use Types Packs/Day Years Used Date Smoking Tobacco: Never Assessed Sex and Gender Information Value Date Recorded Sex Assigned at Not on file Legal Sex Male 7:48 PM EST Gender Identity Not on file Sexual Orientation Not on file Plan of Treatment Health Maintenance Due Date Last Done Comments Diabetes: Annual Foot Exam 09/22/1967 Diabetes: Annual Retina Eye Exam 09/22/1967 Zoster Vaccines (1 of 2) 1976 RSV Immunization Adult Patients (1 - Risk 60-74 years 1-dose series) 2017 Pneumococcal Vaccine: 50+ Years (4 of 4 - PCV20 or PCV21) 01/16/2022 01/16/2017, 09/22/2015, 03/01/2015, Additional history exists COVID-19 Vaccine ( - season) 2024 03/02/2021, 08/12/2020, 07/12/2020 Cholesterol Screening (Lipid Panel) 04/29/2024 Colorectal Cancer Screening: Colonoscopy 04/29/2024 Depression Screening 04/29/2024 Falls Risk Assessment 04/29/2024 Hepatitis C Screening 04/29/2024 Medicare Annual Wellness Visit 04/29/2024 Social Influencers of Health Screening 04/29/2024 Influenza Vaccine (Season Ended) 2025 04/07/2021, 03/17/2020, 04/03/2019, Additional history exists Diabetes: Blood Sugar Control Test (HGBA1C) 04/03/2025 10/02/2024, 08/10/2024, 08/07/2024, Additional history exists Diabetes: Annual Urine Albumin-Creatinine Ratio (uACR) 10/01/2025 10/01/2024, 03/22/2024, 03/22/2024 Diabetes: Annual GFR (Glomerular Filtration Rate) 10/30/2025 10/30/2024, 10/29/2024, 10/02/2024, Additional history exists Hypertension/CHF/CAD Annual BMP Blood Test 10/30/2025 10/30/2024, 10/29/2024, 10/02/2024, Additional history exists DTaP,Tdap,and Td Vaccines (2 - Td or Tdap) 02/03/2027 02/03/2017 Hepatitis B Vaccines Completed 01/11/2015, 08/04/2014, 07/07/2014 HIB Vaccines Aged Out No longer eligi ble based on patient's age to complete this topic HPV Vaccines Aged Out No longer eligi ble based on patient's age to complete this topic Hepatitis A Vaccines Aged Out No long er eligible based on patient's age to complete this topic IPV Vaccines Aged Out No longer eligi ble based on patient's age to complete this topic MMR Vaccines Aged Out No longer eligi ble based on patient's age to complete this topic Meningococcal ACWY Vaccine Aged Out N o longer eligible based on patient's age to complete this topic Meningococcal B Vaccine Aged Out No l onger eligible based on patient's age to complete this topic RSV Immunization Patients Under 20 months Aged Out No longer eligible based on patient's age to complete this topic Varicella Vaccines Aged Out No longer eligible based on patient's age to complete this topic Procedures Procedure Name Priority Date/Time Associated Diagnosis Comments BASIC METABOLIC PANEL Routine 10/30/2024 7:43 AM EDT Chronic kidney disease, stage 4 (severe) (CMS/HCC V24, CMS/HCC V28) TACROLIMUS LEVEL Routine 10/30/2024 7:43 AM EDT Chronic kidney disease, stage 4 (severe) (CMS/HCC V24, CMS/HCC V28) COMPREHENSIVE METABOLIC PANEL Routine 10/29/2024 7:50 AM EDT Weakness COMPLETE BLOOD COUNT Routine 10/29/2024 7:50 AM EDT Weakness URINALYSIS WITH REFLEX MICROSCOPIC AND CULTURE Routine 10/28/2024 12:00 AM EDT Urinary tract infection, site not specified SCOTT URINE CULTURE TUBE Routine 10/28/2024 12:00 AM EDT Urinary tract infection, site not specified URINALYSIS WITH REFLEX MICROSCOPIC AND CULTURE Routine 10/28/2024 12:00 AM EDT Urinary tract infection, site not specified CULTURE URINE Routine 10/28/2024 12:00 AM EDT Urinary tract infection, site not specified TACROLIMUS LEVEL Routine 10/27/2024 8:34 AM EDT Kidney transplant status TACROLIMUS LEVEL Routine 10/20/2024 8:08 AM EDT Acute kidney failure, unspecified ([facility] V24) Encounter for therapeutic drug level monitoring TACROLIMUS LEVEL Routine 10/13/2024 6:50 AM EDT Encounter for therapeutic drug level monitoring TACROLIMUS LEVEL Routine 10/06/2024 7:06 AM EDT Other transplanted organ and tissue status CBC WITH AUTO DIFFERENTIAL Routine 10/02/2024 6:50 AM EDT Immunodeficiency, unspecified ([facility] V24) PARATHYROID HORMONE INTACT Routine 10/02/2024 6:50 AM EDT Immunodeficiency, unspecified ([facility] V24) BK VIRUS PCR QUANTITATIVE Routine 10/02/2024 6:50 AM EDT Immunodeficiency, unspecified ([facility] V24) HEMOGLOBIN A1C Routine 10/02/2024 6:50 AM EDT Immunodeficiency, unspecified ([facility] V24) CREATINE KINASE Routine 10/02/2024 6:50 AM EDT Immunodeficiency, unspecified ([facility] V24) RENAL FUNCTION PANEL Routine 10/02/2024 6:50 AM EDT Immunodeficiency, unspecified ([facility]/HCC V24) COMPREHENSIVE METABOLIC PANEL Routine 10/02/2024 6:50 AM EDT Immunodeficiency, unspecified ([facility]/HCC V24) CBC AND DIFFERENTIAL Routine 10/02/2024 6:50 AM EDT Immunodeficiency, unspecified ([facility]/HCC V24) SCOTT URINE CULTURE TUBE Routine 10/01/2024 1:45 PM EDT Acute kidney failure, unspecified (CMS/HCC V24) Other acute kidney failure (CMS/HCC V24) URINALYSIS WITH REFLEX MICROSCOPIC AND CULTURE [...] V24) Other acute kidney failure (CMS/HCC V24) URINALYSIS WITH REFLEX MICROSCOPIC AND CULTURE Routine 10/01/2024 1:45 PM EDT Acute kidney failure, unspecified (CMS/HCC V24) Other acute kidney failure (CMS/HCC V24) TACROLIMUS LEVEL Routine 09/08/2024 7:02 AM EDT 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 Benign prostatic hyperplasia without lower urinary tract symptoms BASIC METABOLIC PANEL Routine 09/03/2024 6:15 AM EDT Type 1 diabetes mellitus with diabetic neuropathy, unspecified (CMS/HCC) 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 Hyperlipidemia, unspecified End stage renal disease (CMS/HCC) COMPLETE BLOOD COUNT Routine 09/03/2024 6:15 AM EDT Type 1 diabetes mellitus with diabetic neuropathy, unspecified (CMS/HCC) 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 Hyperlipidemia, unspecified End stage renal disease (CMS/HCC) TACROLIMUS LEVEL Routine 08/27/2024 6:26 AM EST [...] renal disease (CMS/HCC) COMPLETE BLOOD COUNT Routine 08/20/2024 7:05 AM EST Type 1 diabetes mellitus with diabetic neuropathy, unspecified (CMS/HCC) 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 Hyperlipidemia, unspecified End stage renal disease (CMS/HCC) BASIC METABOLIC PANEL Routine 08/14/2024 7:21 AM EST Vitamin D deficiency, unspecified Malignant (primary) neoplasm, unspecified (CMS/HCC) Kidney transplant status COMPLETE BLOOD COUNT Routine 08/14/2024 7:21 AM EST Vitamin D deficiency, unspecified Malignant (primary) neoplasm, unspecified (CMS/HCC) Kidney transplant status CLOSTRIDIUM DIFFICILE TOXIN Routine 08/13/2024 5:00 PM EST Diarrhea, unspecified BASIC METABOLIC PANEL Routine 08/13/2024 7:21 AM EST Type 1 diabetes mellitus with diabetic neuropathy, unspecified (CMS/HCC) 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 Tacrolimus Level 7.3 5.0 - 20.0 ng/mL 11/02/2024 9:20 AM EDT [facility] Comment: Additional Information: Toxic Level ?> [...] developed and the performance characteristics determined by [facility]. This confirmation testing has not been cleared or approved by the FDA. The laboratory is regulated under CLIA as qualified to perform high-complexity testing. This test is used for patient testing purposes. It should not be regarded as investigational or for research. Test performed at [facility], [address], [place], [place] ??[address] ? [phone] Brittanie Horan MD, PhD - School Leader Blood Venous blood specimen / Unknown Venipuncture / Unknown 10/30/2024 7:43 AM EDT 10/30/2024 9:16 AM EDT us Michelle Rucker MD LAB BLOOD ORDERABLES Fin al Result [facility] [address] [place] [address] * (ABNORMAL) Basic metabolic panel (10/30/2024 7:43 AM EDT) Only the most recent of6 resultswithin the time period is included. Sodium 141 133 - 145 mmol/L LAB CHEMISTRY METHOD 10/30/2024 9:54 AM [facility] Potassium 4.6 3.5 - 5.5 mmol/L LAB CHEMISTRY METHOD 10/30/2024 9:54 AM [facility] Chloride 110 96 - 110 mmol/L LAB CHEMISTRY METHOD 10/30/2024 9:54 AM [facility] CO2 26 21 - 32 mmol/L LAB CHEMISTRY METHOD 10/30/2024 9:54 AM [facility] Anion Gap 5 3 - 11 LAB CHEMISTRY METHOD 10/30/2024 9:54 AM [facility] Glucose 114(H) 70 - 100 mg/dL LAB CHEMISTRY METHOD 10/30/2024 9:54 AM [facility] BUN 30(H) 5 - 25 mg/dL LAB CHEMISTRY METHOD 10/30/2024 9:54 AM [facility] Creatinine 1.95(H) 0.70 - 1.30 mg/dL LAB CHEMISTRY METHOD 10/30/2024 9:54 AM [facility] eGFR 37(L) >=60 mL/min/1. 73m2 LAB CHEMISTRY METHOD 10/30/2024 9:54 AM EDT [facility] Comment:Calculation based on the Chronic Kidney Disease Epidemiology Collaboration (CKD-EPI) equation refit without adjustment for race. BUN/Creatinine Ratio 15.4 LAB CHEMISTRY METHOD 10/30/2024 9:54 AM EDT [facility] Calcium 9.1 8.5 - 10.5 mg/dL LAB CHEMISTRY METHOD 10/30/2024 9:54 AM T [facility] Blood Venous blood specimen / Unknown Venipuncture / Unknown 10/30/2024 7:43 AM EDT 10/30/2024 9:16 AM EDT us Michelle Rucker MD LAB BLOOD ORDERABLES Fin al Result [facility] [address] [place] [address], [place] [phone] * (ABNORMAL) Complete blood count (10/29/2024 7:50 AM EDT) Only the most recent of6 resultswithin the time period is included. WBC 6.6 4.8 - 10.8 K/mcL LAB HEMETOLOGY METHOD 10/29/2024 10:17 AM [facility] RBC 4.40(L) 4.50 - 5.50 M/mcL LAB HEMETOLOGY METHOD 10/29/2024 10:17 AM [facility] Hemoglobin 10.7(L) 13.5 - 17.5 g/dL LAB HEMETOLOGY METHOD 10/29/2024 10:17 AM [facility] Hematocrit 35.0(L) 42.0 - 54.0 % LAB HEMETOLOGY METHOD 10/29/2024 10:17 AM [facility] MCV 79.0 79.0 - 98.0 FL LAB HEMETOLOGY METHOD 10/29/2024 10:17 AM [facility] MCH 24.2(L) 27.0 - 32.0 pcg LAB HEMETOLOGY METHOD 10/29/2024 10:17 AM EDT [facility] MCHC 30.6(L) 32.0 - 37.0 g/dL LAB HEMETOLOGY METHOD 10/29/2024 10:17 AM EDT [facility] RDW 14.8 11.0 - 15.0 % [facility] 10[facility]29/2024 10:17 AM EDT [facility] Platelets 248 130 - 400 K/mcL LAB HEMETOLOGY METHOD 10/29/2024 10:17 AM EDT [facility] MPV 10.5 7.0 - 11.0 FL LAB HEMETOLOGY METHOD 10/29/2024 10:17 AM EDT [facility] NRBC 0.0 <1.0 % [facility] 10/29/2024 10:17 AM EDT [facility] NRBC Absolute 0.00 <0.10 K/mcL [facility] 10/29/2024 10:17 AM EDT [facility] Blood Venous blood specimen / Unknown Venipuncture / Unknown 10/29/2024 7:50 AM EDT 10/29/2024 9:52 AM EDT us Michelle Rucker MD LAB BLOOD ORDERABLES Fin al Result [facility] [address] [place] [address], * (ABNORMAL) Comprehensive metabolic panel (10/29/2024 7:50 AM EDT) Only the most recent of2 resultswithin the time period is included. Sodium 140 133 - 145 mmol/L LAB CHEMISTRY METHOD 10/29/2024 11:00 AM EDT [facility] Potassium 4.6 3.5 - 5.5 mmol/L LAB CHEMISTRY METHOD 10/29/2024 11:00 AM [facility] Chloride 106 96 - 110 mmol/L LAB CHEMISTRY METHOD 10/29/2024 11:00 AM [facility] CO2 27 21 - 32 mmol/L LAB CHEMISTRY METHOD 10/29/2024 11:00 AM [facility] Anion Gap 7 3 - 11 LAB CHEMISTRY METHOD 10/29/2024 11:00 AM [facility] Glucose 154(H) 70 - 100 mg/dL LAB CHEMISTRY METHOD 10/29/2024 11:00 AM [facility] BUN 34(H) 5 - 25 mg/dL LAB CHEMISTRY METHOD 10/29/2024 11:00 AM [facility] Creatinine 2.16(H) 0.70 - 1.30 mg/dL LAB CHEMISTRY METHOD 10/29/2024 11:00 AM [facility] eGFR 33(L) >=60 mL/min/1. 73m2 LAB CHEMISTRY METHOD 10/29/2024 11:00 AM [facility] Comment:Calculation based on the Chronic Kidney Disease Epidemiology Collaboration (CKD-EPI) equation refit without adjustment for race. BUN/Creatinine Ratio 15.7 LAB CHEMISTRY METHOD 10/29/2024 11:00 AM [facility] Calcium 9.1 8.5 - 10.5 mg/dL LAB CHEMISTRY METHOD 10/29/2024 11:00 AM [facility] AST (SGOT) 14 10 - 42 unit/L LAB CHEMISTRY METHOD 10/29/2024 11:00 AM [facility] ALT (SGPT) 11 10 - 60 unit/L LAB CHEMISTRY METHOD 10/29/2024 11:00 AM [facility] Alkaline Phosphatase 58 42 - 121 unit/L LAB CHEMISTRY METHOD 10/29/2024 11:00 AM [facility] Total Protein 6.6 6.0 - 8.0 g/dL LAB CHEMISTRY METHOD 10/29/2024 11:00 AM T [facility] Albumin 2.7(L) 3.2 - 5.0 g/dL LAB CHEMISTRY METHOD 10/29/2024 11:00 AM [facility] Total Bilirubin 0.7 0.0 - 1.4 mg/dL LAB CHEMISTRY METHOD 10/29/2024 11:00 AM [facility] Blood Venous blood specimen / Unknown Venipuncture / Unknown 10/29/2024 7:50 AM EDT 10/29/2024 9:52 AM EDT us Michelle Rucker MD LAB BLOOD ORDERABLES Fin al Result [facility] [address] [place] [address], [place] [phone] * (ABNORMAL) Urinalysis with reflex microscopic and culture (10/28/2024 12:00 AM EDT) Only the most recent of2 resultswithin the time period is included. Specific [place] Urine 1.010 1.003 - 1.030 LAB URINALYSIS - AUTOMATED METHOD 10/28/2024 12:21 PM [facility] pH, Urine 7.0 5.0 - 8.0 pH LAB URINALYSIS - AUTOMATED METHOD 10/28/2024 12:21 PM [facility] Leukocytes, Urine Large(A) Negative LAB URINALYSIS - AUTOMATED METHOD 10/28/2024 12:21 PM [facility] Nitrite, Urine Negative Negative LAB URINALYSIS - AUTOMATED METHOD 10/28/2024 12:21 PM [facility] Protein, Urine 100(A) <=Trace mg/dL LAB URINALYSIS - AUTOMATED METHOD 10/28/2024 12:21 PM [facility] Glucose, Urine Negative Negative mg/dL LAB URINALYSIS - AUTOMATED METHOD 10/28/2024 12:21 PM [facility] Ketones, Urine Negative Negative mg/dL LAB URINALYSIS - AUTOMATED METHOD 10/28/2024 12:21 PM [facility] Urobilinogen , Urine 0.2 0.2 - 1.0 mg/dL LAB URINALYSIS - AUTOMATED METHOD 10/28/2024 12:21 PM [facility] Bilirubin, Urine Negative Negative LAB URINALYSIS - AUTOMATED METHOD 10/28/2024 12:21 PM [facility] Blood, Urine Moderate(A) Negative LAB URINALYSIS - AUTOMATED METHOD 10/28/2024 12:21 PM [facility] RBC, Urine 2.3 0 - 4 /HPF LAB URINALYSIS - AUTOMATED METHOD 10/28/2024 12:21 PM [facility] WBC, Urine 647.0(H) 0 - 4 /HPF LAB URINALYSIS - AUTOMATED METHOD 10/28/2024 12:21 PM [facility] Squamous Epithelial, Urine 28 0 - 60 /LPF LAB URINALYSIS - AUTOMATED METHOD 10/28/2024 12:21 PM [facility] Bacteria, Urine Few(A) Negative /HPF LAB URINALYSIS - AUTOMATED METHOD 10/28/2024 12:21 PM [facility] Hyaline Casts, Urine 3.2(H) 0 - 3 /LPF LAB URINALYSIS - AUTOMATED METHOD 10/28/2024 12:21 PM [facility] Yeast, Urine Present(A) None /HPF LAB URINALYSIS - AUTOMATED METHOD 10/28/2024 12:21 PM [facility] Urine Urine specimen obtained by clean catch procedure / Unknown Non-blood Collection / Unknown 10/28/2024 10/28/2024 10:05 AM EDT us Michelle Rucker MD LAB URINE ORDERABLES Fin al Result Performing Organization Address [facility] Co de Phone Number [facility] [address] [place] [address], * Scott urine culture tube (10/28/2024 12:00 AM EDT) Only the most recent of2 resultswithin the time period is included. Extra Tube Hold for add-ons. 10/28/2024 1:01 PM EDT [facility] Comment:Auto resulted. Urine Urine specimen obtained by clean catch procedure / Unknown Non-blood Collection / Unknown 10/28/2024 10/28/2024 10:05 AM EDT Michelle Rucker MD LAB URINE ORDERABLES Fin al Result Performing Organization Address [facility] de Phone Number [facility] [address] [place] [address], * Culture urine (10/28/2024 12:00 AM EDT) Culture, Urine <10,000 CFU/mL Yeast, insignificant count, no further workup 10/29/2024 10:40 AM EDT [facility] Urine Urine specimen obtained by clean catch procedure / Unknown Non-blood Collection / Unknown 10/28/2024 10/28/2024 12:21 PM EDT Michelle Rucker MD LAB MICROBIOLOGY - GENER AL ORDERABLES Final Result Performing Organization Address [facility] de Phone Number [facility] [address] [place] [address], * (ABNORMAL) CBC auto differential (10/02/2024 6:50 AM EDT) WBC 6.1 4.8 - 10.8 K/[facility] LAB [facility]EM[facility]OLOGY [facility] RBC 4.20(L) 4.50 - 5.50 M/mcL LAB HEMETOLOGY METHOD 10/02/2024 9:04 AM [facility] Hemoglobin 10.4(L) 13.5 - 17.5 g/dL LAB HEMETOLOGY METHOD 10/02/2024 9:04 AM [facility] Hematocrit 33.7(L) 42.0 - 54.0 % LAB HEMETOLOGY METHOD 10/02/2024 9:04 AM [facility] MCV 80.8 79.0 - 98.0 FL LAB HEMETOLOGY METHOD 10/02/2024 9:04 AM [facility] MCH 24.9(L) 27.0 - 32.0 pcg LAB HEMETOLOGY METHOD 10/02/2024 9:04 AM [facility] MCHC 30.9(L) 32.0 - 37.0 g/dL LAB HEMETOLOGY METHOD 10/02/2024 9:04 AM [facility] RDW 14.6 11.0 - 15.0 % LAB HEMETOLOGY METHOD 10/02/2024 9:04 AM [facility] Platelets 270 130 - 400 K/mcL LAB HEMETOLOGY METHOD 10/02/2024 9:04 AM [facility] MPV 10.7 7.0 - 11.0 FL LAB HEMETOLOGY METHOD 10/02/2024 9:04 AM [facility] NRBC 0.0 <1.0 % LAB HEMETOLOGY METHOD 10/02/2024 9:04 AM [facility] NRBC Absolute 0.00 <0.10 K/mcL LAB HEMETOLOGY METHOD 10/02/2024 9:04 AM [facility] Neutrophils Relative 67.4 % LAB HEMETOLOGY METHOD 10/02/2024 9:04 AM [facility] Lymphocytes Relative 16.7 % LAB HEMETOLOGY METHOD 10/02/2024 9:04 AM [facility] Monocytes Relative 11.6 % LAB HEMETOLOGY METHOD 10/02/2024 9:04 AM [facility] Eosinophils Relative 3.3 % LAB HEMETOLOGY METHOD 10/02/2024 9:04 AM [facility] Basophils Relative 0.7 % LAB HEMETOLOGY METHOD 10/02/2024 9:04 AM [facility] Immature Granulocytes Relative 0.3 % LAB HEMETOLOGY METHOD 10/02/2024 9:04 AM [facility] Neutrophils Absolute 4.13 1.50 - 7.00 K/mcL LAB HEMETOLOGY METHOD 10/02/2024 9:04 AM [facility] Lymphocytes Absolute 1.02 1.00 - 5.00 K/mcL LAB HEMETOLOGY METHOD 10/02/2024 9:04 AM [facility] Monocytes Absolute 0.71 0.20 - 1.00 K/mcL LAB HEMETOLOGY METHOD 10/02/2024 9:04 AM [facility] Eosinophils Absolute 0.20 0.00 - 0.50 K/mcL LAB HEMETOLOGY METHOD 10/02/2024 9:04 AM [facility] Basophils Absolute 0.04 0.00 - 0.20 K/mcL LAB HEMETOLOGY METHOD 10/02/2024 9:04 AM [facility] Immature Granulocytes Absolute 0.02 0.00 - 0.03 K/mcL LAB HEMETOLOGY METHOD 10/02/2024 9:04 AM [facility] Blood Venous blood specimen / Unknown Venipuncture / Unknown 10/02/2024 6:50 AM EDT 10/02/2024 8:49 AM EDT Michelle Rucker MD LAB BLOOD ORDERABLES Fin al Result [facility] [address] [place] [address], * BK virus molecular study quantitative (10/02/2024 6:50 AM EDT) BK Virus DNA Qual Plasma Not detected Not detected 10/05/2024 12:56 PM EDT [facility] BK Virus DNA Quant Plasma <125 <125 Copies/mL 10/05/2024 12:56 PM EDT [facility] Log BK Virus DNA, Plasma <2.10 <2.10 Log (10) Copies/mL 10/05/2024 12:56 PM EDT [facility] Comment: This test utilizes a [...] characteristics of this procedure were determined by [employer] This test is performed pursuant to a license agreement with [employer] Test performed at [employer] [facility], [address] [place], [place] ??[address] ? [phone] Brittanie Horan MD, PhD - School Leader Blood Venous blood specimen / Unknown Venipuncture / Unknown 10/02/2024 6:50 AM EDT 10/02/2024 8:49 AM EDT Michelle Rucker MD LAB BLOOD ORDERABLES Fin al Result [place] [address] * Parathyroid hormone intact (10/02/2024 6:50 AM EDT) PTH 45.7 18.5 - 88.0 pcg/mL LAB CHEMISTRY METHOD 10/02/2024 10:52 AM EDT [facility] Blood Venous blood specimen / Unknown Venipuncture / Unknown 10/02/2024 6:50 AM EDT 10/02/2024 8:49 AM EDT Michelle Rucker MD LAB BLOOD ORDERABLES Fin al Result Performing Organization Address [facility] Co de Phone Number [facility] [address] [place] [address], [place] [phone] * (ABNORMAL) Hemoglobin A1c (10/02/2024 6:50 AM EDT) [facility] Hemoglobin A1C 7.3(H) <6.5 % LAB CHEMISTRY METHOD 10/02/2024 2:09 PM EDT [facility] Mean Bld Glu Estim. 163 mg/dL LAB CHEMISTRY METHOD 10/02/2024 2:09 PM EDT [facility] Blood Venous blood specimen / Unknown Venipuncture / Unknown 10/02/2024 6:50 AM EDT 10/02/2024 8:49 AM EDT Michelle Rucker MD LAB BLOOD ORDERABLES Fin al Result Performing Organization Address City/[facility]/ZIP Co de Phone Number [facility] [address] [place] [address], [place] [phone] * Creatine kinase (10/02/2024 6:50 AM EDT) Total CK 27 22 - 269 unit/L LAB CHEMISTRY METHOD 10/02/2024 9:31 AM [facility] Blood Venous blood specimen / Unknown Venipuncture / Unknown 10/02/2024 6:50 AM EDT 10/02/2024 8:49 AM EDT us Michelle Rucker MD LAB BLOOD ORDERABLES Fin al Result [facility] [address] [place] [address], * (ABNORMAL) Renal function panel (10/02/2024 6:50 AM EDT) Sodium 139 133 - 145 mmol/L LAB CHEMISTRY METHOD 10/02/2024 9:31 AM [facility] Potassium 4.5 3.5 - 5.5 mmol/L LAB CHEMISTRY METHOD 10/02/2024 9:31 AM [facility] Chloride 105 96 - 110 mmol/L LAB CHEMISTRY METHOD 10/02/2024 9:31 AM [facility] CO2 30 21 - 32 mmol/L LAB CHEMISTRY METHOD 10/02/2024 9:31 AM [facility] Anion Gap 4 3 - 11 LAB CHEMISTRY METHOD 10/02/2024 9:31 AM [facility] Glucose 129(H) 70 - 100 mg/dL LAB CHEMISTRY METHOD 10/02/2024 9:31 AM [facility] BUN 32(H) 5 - 25 mg/dL LAB CHEMISTRY METHOD 10/02/2024 9:31 AM [facility] Creatinine 1.26 0.70 - 1.30 mg/dL LAB CHEMISTRY METHOD 10/02/2024 9:31 AM [facility] eGFR 63 >=60 mL/min/1. 73m2 LAB CHEMISTRY METHOD 10/02/2024 9:31 AM [facility] Comment: Calculation based on the??Chronic Kidney Disease Epidemiology Collaboration (CKD-EPI) equation refit??without adjustment for race. Calculation based on the??Chronic Kidney Disease Epidemiology Collaboration (CKD-EPI) equation refit??without adjustment for race. BUN/Creatinine Ratio 25.4 LAB CHEMISTRY METHOD 10/02/2024 9:31 AM EDT [facility] Albumin 2.6(L) 3.2 - 5.0 g/dL LAB CHEMISTRY METHOD 10/02/2024 9:31 AM EDT [facility] Calcium 9.6 8.5 - 10.5 mg/dL LAB CHEMISTRY METHOD 10/02/2024 9:31 AM EDT [facility] Phosphorus 3.5 2.5 - 4.5 mg/dL LAB CHEMISTRY METHOD 10/02/2024 9:31 AM EDT [facility] Blood Venous blood specimen / Unknown Venipuncture / Unknown 10/02/2024 6:50 AM EDT 10/02/2024 8:49 AM EDT us Michelle Rucker MD LAB BLOOD ORDERABLES Fin al Result [facility] [address] [place] [address], * (ABNORMAL) Microalbumin creatinine urine ratio (10/01/2024 1:45 PM EDT) Creatinine, Urine 27.0 mg/dL LAB CHEMISTRY METHOD 10/02/2024 10:08 AM EDT [facility] Microalb, Ur 30.7(H) 0.0 - 29.0 mg/L LAB CHEMISTRY METHOD 10/02/2024 10:08 AM EDT [facility] Microalb/Crea t Ratio 114(H) <30 mg/g creat LAB CHEMISTRY METHOD 10/02/2024 10:08 AM EDT [facility] Urine Urine specimen obtained by clean catch procedure / Unknown Non-blood Collection / Unknown 10/01/2024 1:45 PM EDT 10/02/2024 8:46 AM EDT Michelle Rucker MD LAB URINE ORDERABLES Fin al Result [facility] ([facility]) [facility] [address] [place] [address], * (ABNORMAL) BK virus molecular study urine, quantitative (10/01/2024 1:45 PM EDT) BK Virus DNA Qual Urine DETECTED( A) Not detected 10/05/2024 12:56 PM EDT [facility] BK Virus DNA Quant PCR Urine 851(H) <125 Copies/mL 10/05/2024 12:56 PM EDT [facility] Log BK Virus DNA, Urine 2.93(H) <2.10 Log (10) Copies/mL 10/05/2024 12:56 PM EDT [facility] Comment: This test utilizes a polymerase chain [...] characteristics of this procedure were determined by [facility]. This test is performed pursuant to a license agreement with [employer] Test performed at [facility], [address] [facility], [place], [place] ??[address] ? [phone] Brittanie Horan MD, PhD - School Leader Urine Urinary bladder structure / Unknown Non-blood Collection / Unknown 10/01/2024 1:45 PM EDT 10/02/2024 8:46 AM EDT Michelle Rucker MD LAB URINE ORDERABLES Fin al Result [facility] [address] [place] [address] * Clostridium difficile toxin (08/13/2024 5:00 PM EST) Clostridium difficile GDH Antigen Negative Negative 08/14/2024 11:06 AM EST [facility] C difficile Toxins A+B, EIA Negative Negative 08/14/2024 11:06 AM EST [facility] Comment:NEGATIVE FOR TOXIN P RODUCING CLOSTRIDIOIDES DIFFICILE, NO ADDITIONAL TESTING IS NECESSARY. Stool Rectum structure / Unknown 08/13/2024 5:00 PM EST 08/14/2024 9:36 AM EST Michelle Rucker MD LAB MICROBIOLOGY - GENER AL ORDERABLES Final Result Performing Organization Address City/[facility] Co de Phone Number [facility] [address] [place] [address], [place] [phone] from Last 3 Months Insurance [facility] [employer] Member Subscriber Plan / Payer (Ef fective 2016-Present) Name:Harvey Law Relation to Subscriber:Self Name:Harvey Law Payer ID:[id number] Group ID:[id number] Type:Not on file Address: [place] [address] [id number] Care Teams Stab Setter And Driller Relationship Specialty Start Date End Date Michelle Rucker MD [address] [address] PCP - General Family Medicine 05/06/24
--- OUTSIDE RECORDS SUMMARY | 2024-11-10 12:37 | XMS_ITS | Encounter Summary ---
Author Organization [facility] Address [address] [place] [phone] Care Team Providers Care Clearance Rep Name Role Phone Michelle Rucker MD Primary Care Provider + Encounter Details Date Type Department Care Team (Late st Contact Info) Description 10/30/[address] [facility] - Main Lab [address] [facility] [place] [place] [address] Michelle Rucker MD [address] [phone] Chronic kidney disease, stage 4 (severe) (CMS/HCC V24, CMS/HCC V28) Social History Tobacco [...] Date/Time Associated Diagnosis Comments TACROLIMUS LEVEL Routine 10/30/2024 7:43 AM EDT Chronic kidney disease, stage 4 (severe) (CMS/HCC V24, CMS/HCC V28) BASIC METABOLIC PANEL Routine 10/30/2024 7:43 AM EDT Chronic kidney disease, stage 4 (severe) (CMS/HCC V24, CMS/HCC V28) documented in this encounter Results * (ABNORMAL) Basic metabolic panel (10/30/2024 7:43 AM EDT) Sodium 141 133 - 145 mmol/L LAB CHEMISTRY METHOD 10/30/2024 9:54 AM [facility] Potassium 4.6 3.5 - 5.5 mmol/L LAB CHEMISTRY METHOD 10/30/2024 9:54 AM [facility] Chloride 110 96 - 110 mmol/L LAB CHEMISTRY METHOD 10/30/2024 9:54 AM [facility] CO2 26 21 - 32 mmol/L LAB CHEMISTRY METHOD 10/30/2024 9:54 AM [facility] Anion Gap 5 3 - 11 LAB CHEMISTRY METHOD 10/30/2024 9:54 AM [facility] Glucose 114(H) 70 - 100 mg/dL LAB CHEMISTRY METHOD 10/30/2024 9:54 AM [facility] BUN 30(H) 5 - 25 mg/dL LAB CHEMISTRY METHOD 10/30/2024 9:54 AM [facility] Creatinine 1.95(H) 0.70 - 1.30 mg/dL LAB CHEMISTRY METHOD 10/30/2024 9:54 AM [facility] eGFR 37(L) >=60 mL/min/1. 73m2 LAB CHEMISTRY METHOD 10/30/2024 9:54 AM [facility] Comment:Calculation based on the Chronic Kidney Disease Epidemiology Collaboration (CKD-EPI) equation refit without adjustment for race. BUN/Creatinine Ratio 15.4 LAB CHEMISTRY METHOD 10/30/2024 9:54 AM [facility] Calcium 9.1 8.5 - 10.5 mg/dL LAB CHEMISTRY METHOD 10/30/2024 9:54 AM [facility] Blood Venous blood specimen / Unknown Venipuncture / Unknown 10/30/2024 7:43 AM EDT 10/30/2024 9:16 AM EDT us Michelle Rucker MD LAB BLOOD ORDERABLES Fin al Result [facility] [address] [place] [address], * Tacrolimus level (10/30/2024 7:43 AM EDT) [facility] Signature Tacrolimus Level 7.3 5.0 - 20.0 ng/mL 11/02/2024 9:20 AM EDT [facility] Comment: Additional Information: [...] developed and the performance characteristics determined by [facility]. This confirmation testing has not been cleared or approved by the FDA. The laboratory is regulated under CLIA as qualified to perform high-complexity testing. This test is used for patient testing purposes. It should not be regarded as investigational or for research. Test performed at [facility], [address] [place], [place] ??[address] ? [phone] Brittanie Horan MD, PhD - Merchant [employer] Blood Venous blood specimen / Unknown Venipuncture / Unknown 10/30/2024 7:43 AM EDT 10/30/2024 9:16 AM EDT us Michelle Rucker MD LAB BLOOD ORDERABLES Fin al Result [facility] [address] [place] [phone] documented in this encounter Visit Diagnoses Diagnosis Chronic kidney disease, stage 4 (severe) (CMS/HCC V24, CMS/HCC V28) documented in this encounter Care Teams Clearance Rep Relationship Specialty Start Date End Date Michelle Rucker MD [address] [place] [address] PCP - General Family Medicine 05/06/24 documented as of this encounter
[2024-11-10 12:51] LABS: Alanine Aminotransferase < 6 U/L (0-40); Albumin Level 3.2 g/dL (3.5-5.0); Alkaline Phosphatase 54 U/L (39-117); Anion Gap 11 (12-20); Aspartate Amino Transferase 16 U/L (5-37); Bilirubin Total 0.4 mg/dL (0.0-1.0); Blood Urea Nitrogen 23 mg/dL (9-16); Calcium 9.5 mg/dL (8.4-10.2); Carbon Dioxide 27 mmol/L (22-29); Chloride 106 mmol/L (96-108); Estimated Glomerular Filt Rate 45; Glucose Random 159 mg/dL (60-115); Potassium 4.6 mmol/L (3.3-5.1); Sodium 139 mmol/L (135-145)
[2024-11-11 10:53] LABS: Tacrolimus Prograf 6.9 mcg/L
== END 2024-11-10 11:17 | disposition home or self-care (01) ==
LOC: HO.HVNA 11:16
PROVIDERS: Visit Provider Nurse Practitioner Family
DX: Z94.0 Kidney transplant status (principal); Z13.1 Encounter for screening for diabetes mellitus
CPT/HCPCS: 36415; 80053; 80197; 83036; 83970; 84100; 85025

== ENCOUNTER 2024-11-20 13:48 | Outpatient (REF) | payer OTHER, SELFPAY ==
[2024-11-20 13:51] LABS: MANUAL DIFF FLAG NO
--- OUTSIDE RECORDS SUMMARY | 2024-11-20 13:57 | XMS_ITS | Encounter Summary ---
Author Organization [facility] Address [address] [place] [phone] Care Team Providers Care Patient Support Specialist Name Role Phone Michelle Rucker MD Primary Care Provider + Encounter Details Date Type Department Care Team (Late st Contact Info) Description 04/29/2024 Lab Requisition [facility] - Main Lab [address] [facility] [place] [address] Michelle Rucker MD [address] [phone] Urinary tract infection, site not specified Social [...] and culture (04/29/2024 8:00 AM EST) Specific [place] Urine 1.012 1.003 - 1.030 LAB URINALYSIS - AUTOMATED METHOD 04/29/2024 2:52 PM [facility] pH, Urine 6.0 5.0 - 8.0 pH LAB URINALYSIS - AUTOMATED METHOD 04/29/2024 2:52 PM [facility] Leukocytes, Urine Trace(A) Negative LAB URINALYSIS - AUTOMATED METHOD 04/29/2024 2:52 PM [facility] Nitrite, Urine Negative Negative LAB URINALYSIS - AUTOMATED METHOD 04/29/2024 2:52 PM [facility] Protein, Urine Trace <=Trace mg/dL LAB URINALYSIS - AUTOMATED METHOD 04/29/2024 2:52 PM [facility] Glucose, Urine 250(A) Negative mg/dL LAB URINALYSIS - AUTOMATED METHOD 04/29/2024 2:52 PM [facility] Ketones, Urine Negative Negative mg/dL LAB URINALYSIS - AUTOMATED METHOD 04/29/2024 2:52 PM [facility] Urobilinogen, Urine 0.2 0.2 - 1.0 mg/dL LAB URINALYSIS - AUTOMATED METHOD 04/29/2024 2:52 PM [facility] Bilirubin, Urine Negative Negative LAB URINALYSIS - AUTOMATED METHOD 04/29/2024 2:52 PM [facility] Blood, Urine Negative Negative LAB URINALYSIS - AUTOMATED METHOD 04/29/2024 2:52 PM [facility] RBC, Urine 2.3 0 - 4 /HPF LAB URINALYSIS - AUTOMATED METHOD 04/29/2024 2:52 PM [facility] WBC, Urine 2.8 0 - 4 /HPF LAB URINALYSIS - AUTOMATED METHOD 04/29/2024 2:52 PM [facility] Squamous Epithelial, Urine 6 0 - 60 /LPF LAB URINALYSIS - AUTOMATED METHOD 04/29/2024 2:52 PM [facility] Bacteria, Urine Negative Negative /HPF LAB URINALYSIS - AUTOMATED METHOD 04/29/2024 2:52 PM EST [facility] Hyaline Casts, Urine 0.0 0 - 3 /LPF LAB URINALYSIS - AUTOMATED METHOD 04/29/2024 2:52 PM EST [facility] Urine Urine specimen obtained by clean catch procedure / Unknown 04/29/2024 8:00 AM EST 04/29/2024 2:32 PM EST Michelle Rucker MD LAB URINE ORDERABLES Fin al Result Performing Organization Address [facility] Co de Phone Number [facility] [address] [place] [address], [place] [phone] * (ABNORMAL) Culture urine (04/29/2024 8:00 AM EST) Culture, Urine 10,000-49,0 00 CFU/mL Yolande albicans/du bliniensis( A) 05/01/2024 2:22 PM EST [facility] Comment: The organism value for this result has been updated. These results have been appended to the previously preliminary verified report. Urine Urine specimen obtained by clean catch procedure / Unknown 04/29/2024 8:00 AM EST 04/29/2024 2:32 PM EST Michelle Rucker MD LAB MICROBIOLOGY - GENER AL ORDERABLES Final Result Performing Organization Address [facility]/ZIP Co de Phone Number [facility] [address] [place] [address], [place] [phone] documented in this encounter Visit Diagnoses Diagnosis Urinary tract infection, site not specified documented in this encounter Additional Health Concerns Infection Onset Date Last Indicated Resolved Time C. Diff Rule-Out Infection 08/14/2024 08/13/2024 0 08/14/2024 11:06 AM EST documented as of this encounter Care Teams Patient Support Specialist Relationship Specialty Start Date End Date Michelle Rucker MD [address] [place] [phone] PCP - General Family Medicine 05/06/24 documented as of this encounter
[2024-11-20 13:58] LABS: Basophils Percent Auto 0.7 % (0-2); Eosinophils Absolute Auto 0.1 X10*3/uL (0.0-0.4); Eosinophils Percent Auto 2.2 % (0-4); Hematocrit 36.1 % (42.0-52.0); Hemoglobin 11.2 g/dl (14.0-18.0); Imm Gran Abs Auto 0.02 X10*3/uL (0.00-0.03); Imm Gran Pct Auto 0.3 % (0.0-0.4); Lymphocytes Absolute Auto 0.9 X10*3/uL (1.2-4.9); Lymphocytes Percent Auto 15.1 % (20-40); Mean Corpuscular Hemoglobin 23.8 pg (27.0-33.0); Mean Corpuscular Volume 76.8 fL (80.0-98.0); Mean Platelet Volume 10.4 fL (9.4-12.4); Monocytes Absolute Auto 0.6 X10*3/uL (0.1-1.2); Monocytes Percent Auto 10.2 % (2-11); Neutrophils Absolute Auto 4.3 x10*3/uL (2.0-8.3); Neutrophils Percent Auto 71.5 % (45-73); Platelet Count 266 X10*3/uL (160-400); Red Cell Distribution Width 14.8 % (11.0-16.0)
[2024-11-20 14:30] LABS: Anion Gap 11 (12-20); Blood Urea Nitrogen 29 mg/dL (9-16); Calcium 9.9 mg/dL (8.4-10.2); Carbon Dioxide 27 mmol/L (22-29); Chloride 104 mmol/L (96-108); Estimated Glomerular Filt Rate 51; Glucose Random 171 mg/dL (60-115); Potassium 4.5 mmol/L (3.3-5.1); Sodium 137 mmol/L (135-145)
== END 2024-11-20 13:49 | disposition home or self-care (01) ==
LOC: HO.HVNA 13:48
PROVIDERS: Visit Provider Urology
DX: R33.8 Other retention of urine (principal)
CPT/HCPCS: 36415; 80048; 85025

== ENCOUNTER 2024-11-30 16:15 | Outpatient (REF) | payer OTHER, SELFPAY ==
[2024-11-30 16:46] LABS: Appearance Urine Cloudy; Color Urine Yellow; Glucose Urine UA Negative (Negative); Leukocyte Esterase Urine Large (3+) (Negative); Nitrite Urine Positive (Negative); PH 6.5 (5.0-9.0); UMIC TRIGGER UACC YES; Urine Blood Small (1+) (Negative); Urine Ketones Trace mg/dL (Negative); Urine Protein 100 (2+) mg/dL (Neg-Trace)
[2024-11-30 16:57] LABS: Basophils Percent Auto 0.2 % (0-2); Hematocrit 32.3 % (42.0-52.0); Hemoglobin 10.1 g/dl (14.0-18.0); Imm Gran Pct Auto 0.5 % (0.0-0.4); Lymphocytes Percent Auto 5.2 % (20-40); MANUAL DIFF FLAG SCAN; Mean Corpuscular HGB Conc 31.3 g/dl (31.0-36.0); Mean Corpuscular Volume 76.9 fL (80.0-98.0); Mean Platelet Volume 11.3 fL (9.4-12.4); Monocytes Absolute Auto 1.9 X10*3/uL (0.1-1.2); Monocytes Percent Auto 10.1 % (2-11); Neutrophils Absolute Auto 15.8 x10*3/uL (2.0-8.3); Platelet Count 236 X10*3/uL (160-400); Red Cell Distribution Width 15.9 % (11.0-16.0); SCAN SMEAR FLAG 1; White Blood Count 18.9 X10*3/uL (4.8-10.8)
[2024-11-30 17:04] LABS: Bacteria Urine Trace (None Seen); Granular Casts Urine Present; Hyaline Casts Urine 0-2 /LPF (0-2); Squamous Epithelial Cell Urine 0-2 /HPF (0-2); UACC Culture Trigger YES
[2024-11-30 17:19] LABS: Estimated Average Glucose 140 mg/dL; Hemoglobin A1c % 6.5 % (<6.0)
[2024-11-30 17:28] LABS: Creatinine Urine 116.14 mg/dL; Microalbum/Creatinine Ratio Ur 326.3 ug/mg cr (<30)
[2024-11-30 17:36] LABS: Parathyroid Hormone Intact 44.3 pg/mL (8.7-77.1)
[2024-11-30 17:41] LABS: SLIDE REVIEW VERIFIED
[2024-11-30 17:42] LABS: Alanine Aminotransferase < 6 U/L (0-40); Anion Gap 14 (12-20); Aspartate Amino Transferase 20 U/L (5-37); Blood Urea Nitrogen 22 mg/dL (9-16); Carbon Dioxide 24 mmol/L (22-29); Chloride 104 mmol/L (96-108); Estimated Glomerular Filt Rate 58; Iron 8 mcg/dL (45-160); Percent Iron Saturation 4 % (15-50); Sodium 138 mmol/L (135-145); Total Iron Binding Capacity 187 mcg/dL (228-428); Unsaturated Iron Binding 179 ug/dL
--- OUTSIDE RECORDS SUMMARY | 2024-11-30 17:44 | XMS_ITS | Encounter Summary ---
Author Organization [facility] Address [address] [place] [phone] Care Team Providers Care Plow Holder Name Role Phone Michelle Rucker MD Primary Care Provider + Encounter Details Date Type Department Care Team (Late st Contact Info) Description 04/29/2024 Lab Requisition [facility] - Main Lab 299 [facility] [place] [address] Michelle Rucker MD [address] [phone] Urinary tract infection, site not specified Social [...] and culture (04/29/2024 8:00 AM EST) Specific [place] Urine 1.012 1.003 - 1.030 LAB URINALYSIS - AUTOMATED METHOD 04/29/2024 2:52 PM [facility] pH, Urine 6.0 5.0 - 8.0 pH LAB URINALYSIS - AUTOMATED METHOD 04/29/2024 2:52 PM [facility] Leukocytes, Urine Trace(A) Negative LAB URINALYSIS - AUTOMATED METHOD 04/29/2024 2:52 PM [facility] Nitrite, Urine Negative Negative LAB URINALYSIS - AUTOMATED METHOD 04/29/2024 2:52 PM [facility] Protein, Urine Trace <=Trace mg/dL LAB URINALYSIS - AUTOMATED METHOD 04/29/2024 2:52 PM [facility] Glucose, Urine 250(A) Negative mg/dL LAB URINALYSIS - AUTOMATED METHOD 04/29/2024 2:52 PM [facility] Ketones, Urine Negative Negative mg/dL LAB URINALYSIS - AUTOMATED METHOD 04/29/2024 2:52 PM [facility] Urobilinogen, Urine 0.2 0.2 - 1.0 mg/dL LAB URINALYSIS - AUTOMATED METHOD 04/29/2024 2:52 PM [facility] Bilirubin, Urine Negative Negative LAB URINALYSIS - AUTOMATED METHOD 04/29/2024 2:52 PM [facility] Blood, Urine Negative Negative LAB URINALYSIS - AUTOMATED METHOD 04/29/2024 2:52 PM [facility] RBC, Urine 2.3 0 - 4 /HPF LAB URINALYSIS - AUTOMATED METHOD 04/29/2024 2:52 PM [facility] WBC, Urine 2.8 0 - 4 /HPF LAB URINALYSIS - AUTOMATED METHOD 04/29/2024 2:52 PM [facility] Squamous Epithelial, Urine 6 0 - 60 /LPF LAB URINALYSIS - AUTOMATED METHOD 04/29/2024 2:52 PM [facility] Bacteria, Urine Negative Negative /HPF LAB [...] ORDERABLES Fin al Result Performing Organization Address [facility] Co de Phone Number [facility] [address] [place] [address], [place] [phone] * (ABNORMAL) Culture urine (04/29/2024 8:00 AM [...] AL ORDERABLES Final Result Performing Organization Address [facility]/ZIP Co de Phone Number [facility] [address] [place] [address], [place] [phone] documented in this encounter Visit Diagnoses Diagnosis Urinary tract infection, site not specified documented in this encounter Additional Health Concerns Infection Onset Date Last Indicated Resolved Time C. difficile Rule-Out 08/14/2024 08/13/20242024 11:06 AM EST documented as of this encounter Care Teams Plow Holder Relationship Specialty Start Date End Date Michelle Rucker MD [address] [place] [phone] PCP - General Family Medicine 05/06/24 documented as of this encounter
[2024-11-30 17:51] LABS: Ferritin 104 ng/mL (20-250)
[2024-12-01 08:43] LABS: Tacrolimus Prograf 3.2 mcg/L
[2024-12-02 21:04] LABS: BK DNA QN RT PCR, UR NOT DETECTED (NOT DETECTED); BK DNA QN RT PCR, UR NOT DETECTED Log IU/mL (NOT DETECTED)
== END 2024-11-30 16:16 | disposition home or self-care (01) ==
LOC: HO.HVNA 16:15
PROVIDERS: Visit Provider Internal Medicine Nephrology
DX: N15.9 Renal tubulo-interstitial disease, unspecified (principal); B97.89 Other viral agents as the cause of diseases classified elsewhere; E20.81 Hypoparathyroidism due to impaired parathyroid hormone secretion; D50.8 Other iron deficiency anemias; E87.70 Fluid overload, unspecified; E10.22 Type 1 diabetes mellitus with diabetic chronic kidney disease; N18.32 Chronic kidney disease, stage 3b; Z92.25 Personal history of immunosuppression therapy; Z94.0 Kidney transplant status
CPT/HCPCS: 36415; 80051; 80197; 81001; 82043; 82310; 82550; 82565; 82570; 82728; 83036; 83540; 83970; 84450; 84460; 84520; 85025; 87086; 87088; 87186; 87799

== ENCOUNTER 2024-12-09 10:36 | Outpatient (REF) | payer OTHER, SELFPAY ==
--- OUTSIDE RECORDS SUMMARY | 2024-12-09 12:11 | XMS_ITS | Encounter Summary ---
Author Organization [facility] Address [address] [place] [phone] Care Team Providers Care Family Welfare Social Work Professor Name Role Phone Michelle Rucker MD Primary Care Provider + Encounter Details Date Type Department Care Team (Late st Contact Info) Description 04/29/2024 Lab Requisition [facility] - Main Lab [address] [facility] [place] [address] Michelle Rucker MD [address] [phone] Urinary tract infection, site not specified Social [...] and culture (04/29/2024 8:00 AM EST) Specific [place] Urine 1.012 1.003 - 1.030 LAB URINALYSIS - AUTOMATED METHOD 04/29/2024 2:52 PM [facility] pH, Urine 6.0 5.0 - 8.0 pH LAB URINALYSIS - AUTOMATED METHOD 04/29/2024 2:52 PM [facility] Leukocytes, Urine Trace(A) Negative LAB URINALYSIS - AUTOMATED METHOD 04/29/2024 2:52 PM [facility] Nitrite, Urine Negative Negative LAB URINALYSIS - AUTOMATED METHOD 04/29/2024 2:52 PM [facility] Protein, Urine Trace <=Trace mg/dL LAB URINALYSIS - AUTOMATED METHOD 04/29/2024 2:52 PM [facility] Glucose, Urine 250(A) Negative mg/dL LAB URINALYSIS - AUTOMATED METHOD 04/29/2024 2:52 PM [facility] Ketones, Urine Negative Negative mg/dL LAB URINALYSIS - AUTOMATED METHOD 04/29/2024 2:52 PM [facility] Urobilinogen, Urine 0.2 0.2 - 1.0 mg/dL LAB URINALYSIS - AUTOMATED METHOD 04/29/2024 2:52 PM [facility] Bilirubin, Urine Negative Negative LAB URINALYSIS - AUTOMATED METHOD 04/29/2024 2:52 PM [facility] Blood, Urine Negative Negative LAB URINALYSIS - AUTOMATED METHOD 04/29/2024 2:52 PM [facility] RBC, Urine 2.3 0 - 4 /HPF LAB URINALYSIS - AUTOMATED METHOD 04/29/2024 2:52 PM [facility] WBC, Urine 2.8 0 - 4 /HPF LAB URINALYSIS - AUTOMATED METHOD 04/29/2024 2:52 PM [facility] Squamous Epithelial, Urine 6 0 - 60 /LPF LAB URINALYSIS - AUTOMATED METHOD 04/29/2024 2:52 PM [facility] Bacteria, Urine Negative Negative /HPF LAB URINALYSIS - AUTOMATED METHOD 04/29/2024 2:52 PM EST [facility] Hyaline Casts, Urine 0.0 0 - 3 /LPF LAB URINALYSIS - AUTOMATED METHOD 04/29/2024 2:52 PM EST [facility] Urine Urine specimen obtained by clean catch procedure / Unknown 04/29/2024 8:00 AM EST 04/29/2024 2:32 PM EST Michelle Rucker MD LAB URINE ORDERABLES Fin al Result Performing Organization Address [facility] Co de Phone Number [facility] [address] [place] [address], [place] [phone] * (ABNORMAL) Culture urine (04/29/2024 8:00 AM EST) Culture, Urine 10,000-49,0 00 CFU/mL Yolande albicans/du bliniensis( A) 05/01/2024 2:22 PM EST [facility] Comment: The organism value for this result has been updated. These results have been appended to the previously preliminary verified report. Urine Urine specimen obtained by clean catch procedure / Unknown 04/29/2024 8:00 AM EST 04/29/2024 2:32 PM EST Michelle Rucker MD LAB MICROBIOLOGY - GENER AL ORDERABLES Final Result Performing Organization Address [facility]/ZIP Co de Phone Number [facility] [address] [place] [address], [place] [phone] documented in this encounter Visit Diagnoses Diagnosis Urinary tract infection, site not specified documented in this encounter Additional Health Concerns Infection Onset Date Last Indicated Resolved Time C. difficile Rule-Out 08/14/2024 08/13/20242024 11:06 AM EST documented as of this encounter Care Teams Family Welfare Social Work Professor Relationship Specialty Start Date End Date Michelle Rucker MD [address] [place] [phone] PCP - General Family Medicine 05/06/24 documented as of this encounter
[2024-12-10 13:58] LABS: Tacrolimus Prograf 5.4 mcg/L
== END 2024-12-09 10:37 | disposition home or self-care (01) ==
LOC: HO.HVNA 10:36
PROVIDERS: Visit Provider Internal Medicine Nephrology
DX: Z94.0 Kidney transplant status (principal)
CPT/HCPCS: 36415; 80197

== ENCOUNTER 2024-12-31 15:56 | Outpatient (REF) | payer OTHER, SELFPAY ==
--- OUTSIDE RECORDS SUMMARY | 2024-12-31 15:58 | XMS_ITS | Continuity of Care Document ---
Author Organization [facility] Address [address] [place], [place] Phone [phone] Care Team Providers Care Waist Cutter Name Role Phone Lashell Aguilar MD Care Team Information Receive TESSA Cartwright M.D. Care Team Information Rec eiver Unavailable Lashell Aguilar MD Primary Care Physician Unavai lable Problems Active Problems Provider Date Impaired renal function disorder Tessa alvarado M.D. 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 Onset: 11/05/2014 Social History Type Date Description Comments Sex Male Sex Unknown Allergies and adverse reactions Active Allergies Criticality Reaction Severity Comments Date Hyzaar Unable to assess criticality GI & lethargy 11/05/2014 Inactive Allergies NKDA Unable to assess criticality 11/05/2014 Medications Active Medications SIG Qnty Indications Order ing Provider Date Gksalap133Wbhv/ML Solution 6-10 unit subcutaneous three times a day 3vials Tessa Paredes M.D. 03/19/2017 Rosuvastatin Zknqehn9by Tablets 1/2 By Mouth Every Day 14tabs E10.8 Tessa Paredes M.D. 10/15/2016 [facility] Syr/NDL 29G 0.5ML U/F Use 1 Syringe Under The Skin Three Times Daily 90units E10.8 Tessa Paredes M.D. 12/03/2014 Freestyle Lite TestStrips 1 Strip To Meter 8 Times A Day 750units E10.8 Tessa Paredes M.D. 11/27/2014 N25.9 Kepqpg797Kidy/ML Solution 12 unit subcutaneous twice a day 1units Tessa Paredes M.D. 11/05/2014 Freestyle LiteStrips (Blood Sugar Use 1 Strip Every Two Hours While Awake Check Blood Sugar 6-8 Timesa Day 750units E10.8 Tessa Paredes M.D. 09/29/2014 Ldpjjjzhmi21jf Tablets TK 1 T PO qd Unkn own Cfoauiiszu23.5mg Tablets TK 1 T PO bid U nknown Amlodipine Ptrpnmbk65ly Tablets 1 by mouth every day Jeff Lobo MD Jgeupwojx6nr Tablets 1 by mouth every day 30tabs Tessa Paredes M.D. Hydralazine LGV77tw Tablets Jeff Lobo MD Doxazosin Kxapxfbo6vo Tablets TK 1 T PO QHS Unknown Lszood451ay Tablets 1 tab by mouth daily Unknown Citrate Unknown History Medications Pravastatin Abvjyd37rm Tablets 1 by mouth every day 30tabs E10.8 Tessa Paredes M.D. 07/06/2016 - 10/15/2016 Levothyroxine Roglmc35ltu Tablets 1/2 by mouth every day=12.5/d 45tabs E03.9 Tessa Paredes M.D. 04/05/2016 - 07/06/2016 Epvyiyq035Wuqg/ML Solution inject 6-10 units subcutaneously 3 times a day 30ml Tessa Paredes M.D. 11/05/2014 - 03/19/2017 Sertraline LPT12qc Tablets TK 1 T PO qd Unknown - 11/05/2014 Oxycodone HCL5mg Tablets Unknown - 11/05/2014 Ytnysw292Gvwo/ML Solution Jeff Lobo MD - 11/05/2014 Penicillin V Uhtqrvojl530jx Tablets TK 1 T PO Q 6 H Tat Unknown - 11/05/2014 Hydrocodone-Acetamin ophen5-325mg Tablets TK 1 T PO Q 4 To 6 H prn P For 7 Days Unknown - 11/05/2014 Tamsulosin HCL0.4mg Capsules TK One C PO bid For 30 Days Unknown - 11/05/2014 Rivnlsni46qq Tablets TK 2 TS PO D For 30 Days Unknown - 11/05/2014 Ciprofloxacin YJJ154ls Tablets TK 1 T PO Once D Unknown - 11/05/2014 Hydrocodone-Acetamin ucknv64-853pa Tablets TK 1 T PO Q 6 H prn P Unknown - 11/05/2014 Ondansetron HCL8mg Tablets TK 1 T PO tid Unknown - 11/05/2014 Uwxaovft649um Tablets TK 1 T PO D For 30 Days Unknown - 11/05/2014 Losartan Nufuqhsuf616bk Tablets TK 1 T PO qd Unknown - 11/05/2014 Trazodone HRU61qo Tablets TK 1 T PO qd Unknown - 11/05/2014 Atorvastatin Tsofwga48ww Tablets TK 1 T PO Once A Day hs Unknown - 11/05/2014
--- OUTSIDE RECORDS SUMMARY | 2024-12-31 15:58 | XMS_ITS | Encounter Summary ---
Author Organization [facility] Address [address] [place] [address] Care Team Providers Care Window Assembler Name Role Phone Michelle Rucker MD Primary Care Provider + Encounter Details Date Type Department Care Team (Late st Contact Info) Description 04/29/2024 Lab Requisition [facility] - Main Lab [address] [place] [address] Michelle Rucker MD [address] [facility] [address] [place], [place] [id number] Urinary tract infection, site not specified Social [...] and culture (04/29/2024 8:00 AM EST) Specific [place] Urine 1.012 1.003 - 1.030 LAB URINALYSIS - AUTOMATED METHOD 04/29/2024 2:52 PM [facility] pH, Urine 6.0 5.0 - 8.0 pH LAB URINALYSIS - AUTOMATED METHOD 04/29/2024 2:52 PM [facility] Leukocytes, Urine Trace(A) Negative LAB URINALYSIS - AUTOMATED METHOD 04/29/2024 2:52 PM [facility] Nitrite, Urine Negative Negative LAB URINALYSIS - AUTOMATED METHOD 04/29/2024 2:52 PM [facility] Protein, Urine Trace <=Trace mg/dL LAB URINALYSIS - AUTOMATED METHOD 04/29/2024 2:52 PM [facility] Glucose, Urine 250(A) Negative mg/dL LAB URINALYSIS - AUTOMATED METHOD 04/29/2024 2:52 PM [facility] Ketones, Urine Negative Negative mg/dL LAB URINALYSIS - AUTOMATED METHOD 04/29/2024 2:52 PM [facility] Urobilinogen, Urine 0.2 0.2 - 1.0 mg/dL LAB URINALYSIS - AUTOMATED METHOD 04/29/2024 2:52 PM [facility] Bilirubin, Urine Negative Negative LAB URINALYSIS - AUTOMATED METHOD 04/29/2024 2:52 PM [facility] Blood, Urine Negative Negative LAB URINALYSIS - AUTOMATED METHOD 04/29/2024 2:52 PM [facility] RBC, Urine 2.3 0 - 4 /HPF LAB URINALYSIS - AUTOMATED METHOD 04/29/2024 2:52 PM [facility] WBC, Urine 2.8 0 - 4 /HPF LAB URINALYSIS - AUTOMATED METHOD 04/29/2024 2:52 PM [facility] Squamous Epithelial, Urine 6 0 - 60 /LPF LAB URINALYSIS - AUTOMATED METHOD 04/29/2024 2:52 PM [facility] Bacteria, Urine Negative Negative /HPF LAB URINALYSIS - AUTOMATED METHOD 04/29/2024 2:52 PM EST [facility] Hyaline Casts, Urine 0.0 0 - 3 /LPF LAB URINALYSIS - AUTOMATED METHOD 04/29/2024 2:52 PM EST [facility] Urine Urine specimen obtained by clean catch procedure / Unknown 04/29/2024 8:00 AM EST 04/29/2024 2:32 PM EST Michelle Rucker MD LAB URINE ORDERABLES Fin al Result Performing Organization Address [facility] Co de Phone Number [facility] [address] [place] [address], [place] [phone] * (ABNORMAL) Culture urine (04/29/2024 8:00 AM EST) Culture, Urine 10,000-49,0 00 CFU/mL Yolande albicans/du bliniensis( A) 05/01/2024 2:22 PM EST [facility] Comment: The organism value for this result has been updated. These results have been appended to the previously preliminary verified report. Urine Urine specimen obtained by clean catch procedure / Unknown 04/29/2024 8:00 AM EST 04/29/2024 2:32 PM EST Michelle Rucker MD LAB MICROBIOLOGY - GENER AL ORDERABLES Final Result Performing Organization Address [facility]/ZIP Co de Phone Number [facility] [address] [place] [address], [place] [phone] documented in this encounter Visit Diagnoses Diagnosis Urinary tract infection, site not specified documented in this encounter Additional Health Concerns Infection Onset Date Last Indicated Resolved Time C. difficile Rule-Out 08/14/2024 08/13/20242024 11:06 AM EST MDRO (other) 12/15/2024 12/15/2024 documented as of this encounter Care Teams Window Assembler Relationship Specialty Start Date End Date Michelle Rucker MD [address] [address] PCP - General Family Medicine 05/06/24 documented as of this encounter
--- OUTSIDE RECORDS SUMMARY | 2024-12-31 15:58 | XMS_ITS | Encounter Summary ---
Author Organization [facility], Address [address] [place] [address] Phone Care Team Providers Care Picker And Sorter Load And Unload Name Role Phone Tennille Linton NP Primary Care Provider + Encounter Details Date Type Department Care Team (Late st Contact Info) Description 06/04/2024 Documentation Only [facility], [address] [place] [address] Annika Mcclure [place] [address] [place] [address] Social History Tobacco Use Types Packs/Day [...] Care Team (Late st Contact Info) Description 01/07/2025 1:15 PM EDT Clinical Support [facility] [address] [place] [address] Yaneth Rudolph FNP-C [address] [place] [address] documented as of this encounter Visit Diagnoses Not on filedocumented in this encounter Care Teams Picker And Sorter Load And Unload Relationship Specialty Start Date End Date Tennille Linton NP [address] [place] [phone] PCP - General Nurse Practitioner 08/07/23 documented as of this encounter
--- OUTSIDE RECORDS SUMMARY | 2024-12-31 15:59 | XMS_ITS | Data Portability ---
Author Organization [employer] [facility], [facility] Address [address] [place] [address] Care Team Providers Care Switch House Operator Name Role Phone GERARDO RHOADES Primary Care Provider HIM CCA OTHER Assessment Encounter Date Assessment Date Assessment LastModified by Organization Details LastModified Time 11/30/2024 11/30/2024 I provided real -time medical direction via phone for this encounter and was available for additional phone-based assistance as needed. I have reviewed and agree with the Assessment and Plan as documented by the Accounting Systems Manager. Patient given the opportunity to ask questions. Our service contacted for an assessment of: Nausea vomiting and confusion As per above, patient under the treatment by his urologist for a urinary tract infection with Augmentin. Started to develop nausea vomiting over the weekend. Meds are given via G-tube but patient does take p.o. and overall remains with more confusion which is likely contributing to poor intake along with the nausea vomiting. Patient is well cared for at home by family members. Patient is nonambulatory at baseline now. has been febrile up to 101. Per facilities specialist on the scene, Vital signs are stable . Patient is febrile at 100.4. Nontoxic in appearance. BMP is reassuring. Urinalysis is positive for both nitrates and leukocytes. Impression and plan: Ongoing urinary tract infection on Augmentin. May be contributing to nausea vomiting. Patient was given an klgi-coa-otlnsmj medication for nausea which did not alleviate symptoms. For symptom management, we initially started lactated Ringer's however a medication interaction with ceftriaxone was identified and therefore the patient was changed to normal saline and hydrated with normal saline which is compatible with ceftriaxone. Patient had an IV administration of Zofran. The patient was also given ceftriaxone 1 g IV as well as prescribed cefpodoxime. Advised stopped taking Augmentin. A limited supply of sublingual Zofran was sent to the patient's pharmacy along with cefpodoxime. A urine culture will be obtained and follow up on. Additionally the patient's urologist has informed the family that he is sending VNA to the house today to collect a urine culture and to obtain send out labs. Red flags discussed as to when to seek a higher level care. The patient had no adverse reaction. Allergies: Reviewed PCP f/u: We discussed the diagnostic uncertainty of home visits and the risk associated with this. In this case, the patient and I felt this to be an acceptable and reasonable amount of risk given the benefit of avoiding an ED visit. We discussed the need to seek care urgently/emergentl y in the setting of any new or worsening serious symptoms, particularly fever chills lightheadedness altered mental status [email or web address] Not available 11/30/2024 12:08:27 12/07/2024 12/07/2024 Mr. Law presented with a failed trial of void and urinary retention since this morning, and had an 18 colombian aguero catheter replaced by the community facilities specialist (no 22 colombian available). His urologist's office was contacted for follow-up. At this time he appears safe to remain at home with outpatient follow-up with his urologist for repeat TOV. Not available 12/07/2024 15:08:11 Plan of Treatment Reminders Order Date Submit Date Provider Last Modified By Organization Details Last Modified Time Details Appointments None recorded. Lab BMP, serum or plasma 2024 025 [facility], [address] [place] [address], [id number] 5 14:08:14 culture, urine 2024 025 IVANHOE [facility] (Centralized Electronic Ordering - All Locations), Patient Can Go To The Location Of Their Choice, [id number] 5 16:06:18 urinalysis, dipstick 2024 025 [facility], [address] [place] [address], [id number] 14:08:32 Referral None recorded. Procedures catheteriza tion, aguero (PROC) 2024 025 Not available 06/16/202 5 15:06:01 Surgeries None recorded. Imaging None recorded. Medication Orders sodium chloride 0.9 % intravenous solution [address], [address] [place] [address], [address], 5 09:49:51 lactated Ringers intravenous solution [address], [address] [place] [address], [id number], 5 10:47:40 ondansetron HCl (PF) 4 mg/2 mL injection solution [address], [address] [place] [address], [address], 5 09:44:17 ondansetron 4 mg disintegrat ing tablet 2024 025 [facility], [address] [place] [address], [address], 5 13:21:27 cefpodoxime 100 mg tablet 2024 025 [facility], [address] [place] [address], [address], 5 14:21:32 ceftriaxone 1 gram solution for injection [address], [address] [place] [address], [address], 5 09:44:17 Patient TargetsNo targets recorded. Patient InstructionsNo instructions recorded. Reason for Referral None Reported. Results Created Date Observation Date Name Description Value Unit Range Abnormal Flag Note LastModifiedBy Organization Detail LastModifiedTime 12/01/19 25 12/04/2024 URINE CULTU RE, UROLO GY MARIAH P urine culture, urology workup Final report abnormal Not Available [facility] ([facility]) [address] [facility], [place], [address], 12/04/2024 10:06:05 12/01/19 25 12/04/2024 URINE CULTU RE, UROLO GY MARIAH P result 1 COMMEN T abnormal Pseud omona s aerug inosa Cefta zidim e-brian bacta m and cefto lozan e-marleni obact am may be consi dered for thera py ONLY when multi -drug resis tance (MDR) is demon strat ed to merop enem and other teste d agent s. Great er than 100,0 00 colon y formi ng units per mL TWO DIFFE RENT PSEUD OMONA S AERUG INOSA SENSI TIVIT IES Not Available [facility] ([facility]) [address] [place], [address], 12/04/2024 10:06:05 12/01/19 25 12/04/2024 URINE CULTU RE, UROLO GY MARIAH P result 2 COMMEN T abnormal Pseud omona s aerug inosa Cefta zidim e-brian bacta m and cefto lozan e-marleni obact am may be consi dered for thera py ONLY when multi -drug resis tance (MDR) is demon strat ed to merop enem and other teste d agent s. Great er than 100,0 00 colon y formi ng units per mL Not Available [facility] ([facility]) [address] [place], [address], 12/04/2024 10:06:05 12/01/19 25 12/04/2024 URINE CULTU RE, UROLO GY MARIAH P antimicrobia l susceptibili ty Commen t S = Susce ptibl e; I = Inter media te; R = Resis tant P = Posit jayjay; N = Negat jayjay MICS are expre ssed in micro grams per mL Antib iotic RSLT# 1 RSLT# 2 RSLT# 3 RSLT# 4 Amika dex S S Cefta zidim e S S Cefta zidim e/brian bacta m S S Cefto lozan e/marleni obact am S S Cipro floxa dex S S Levof loxac in S S Merop enem I S Piper acill in/Ta zobac moss S S Tobra mycin S S Not Available [facility] ([facility]) [address] [facility], [place], [address], 12/04/2024 10:06:05 Result Notes None recorded. Medical Equipment None Reported. Allergies Allergen ID Allergen Name Allergen Category Reaction Reaction Severity Criticality Documentation Date Start Date Code Code System Note Provider Name and Address Organization Details Recorded Time 00642 Dilaudid medicatio n Not available Not available Not available 11/30/2024 79275 3 RxNorm Not Available [facility] 5 08:15:01 57808 oxycodone medicatio n Not available Not available Not available 11/30/2024 7804 [facility] 08:15[facility]01 40640 acetamino phen / oxycodone medicatio n Not available Not available Not available 11/30/2024 64420 3 RxNorm Not Available [facility] 08:15:01 Medications Name Sig Start Date Stop Date Status Note LastModified by Organization Details LastModified Time cefpodoxime 100 mg tablet Take 1 tablet every 12 hours by oral route for 7 days. active Not Available Not Available Not Available amoxicillin 600 mg-potassium clavulanate 42.9 mg/5 mL oral suspension GIVE 13.5 ML VIA G-TUBE EVERY 12 HOURS FOR 7 DAYS DISCARD ANY REMAINDER active Not Available Not Available No t Available ondansetron 4 mg disintegrati ng tablet Place 1 tablet 3 times a day by translingua l route as needed for 5 days, for nausea and vomiting. active Not Available Not Available No t Available oxycodone 5 mg tablet TAKE 1 TABLET BY MOUTH EVERY 6 HOURS NEEDED FOR PAIN active Not Available Not Available No t Available Clindamycin Pediatric 75 mg/5 mL oral solution TAKE 20 ML VIA G-TUBE FOUR TIMES A DAY FOR 7 DAYS. DISCARD ANY REMAINDER. active Not Available Not Available N ot Available Vitals Date Recorded Respiratory rate Heart rate Oxygen saturation Oxygen saturation in Arterial blood by Pulse oximetry Body temperature Systolic And Diastolic Provider Name and Address Organization Details Last Updated DateTime 5 14 /min 92 /min 97 % 97 % 100.4 [degF] 136/71 mm[Hg] Not Available [facility] 09:06:09 Date Recorded Heart rate Oxygen saturation Oxygen saturation in Arterial blood by Pulse oximetry Body temperature Respiratory rate Systolic And Diastolic Provider Name and Address Organization Details Last Updated DateTime 5 77 /min 97 % 97 % 97.7 [degF] 14 /min 152/71 mm[Hg] Not Available [facility] 15:01:16 Social History None recorded. Functional Status None recorded. Mental Status None recorded. Family History Nothing Reported. Medical History No medical history recorded. Past Encounters Encounter ID Performer Location Encounter Start Date Encounter Closed Date Diagnosis/Indication Diagnosis SNOMED-CT Code Diagnosis ICD10 Code Diagnosis Note [id number] Debi Reddy MD [facility] [address] [id number] 11/30/2024 09:06:06 11/30/2024 20:31:14 Nausea and vomiting 48577443 R11.2 Disorder o f urinary system 177301899 R39.89 [id number] MASSIMO LAMAS MD [facility] [address] [id number] 12/07/2024 15:01:14 12/07/2024 19:55:13 Acute retention of urine 307773395 R33.8 Health Concerns Section Related Observation LastModified by Organization Detai ls LastModified Time None Recorded Concern Status LastModified by Organization Details LastModified Time None Recorded Advance Directives Directive None Recorded Payers Insurance Date Sequence Insurance Name Policy Number Policy Hood Covered Member ID Hood Member ID Guarantor Name 12/07/2024 1 [facility] - DOS ON OR AFTER 2022 - DUAL ELIGIBLE - INTERMEDIATE OPTIONS AND ONE CARE (MEDICARE REPLACEMENT/ADV ANTAGE - HMO) Harvey Law [id number] Harvey Law Notes Date Note Type Note Provider Name and Address Organization Details Recorded Time 11/30/2024 text/html [facility] Nurse Triage Notes (Imani Tran): Reason For Request: fever/vomiting/weaknes s Patient Reports: Nausea with or without vomiting Denies: Sharp focal or diffuse abdominal pain Vomiting blood/coffee ground material Bloating, jaundice new onset with pain Nausea and vomiting greater than 2 hours with abdominal pain Tearing pain that radiates to back Food Impaction Vague abdominal pain greater than 24 hours Constipation Diarrhea no blood in stool Chief Complaints: Nausea / Vomiting, Fever PMH: Organ Transplant, Hypertension, Diabetes Mellitus Type 2, Hyperlipidemia, Stroke PMH Reviewed at 11/30/2024:14 Allergies Reviewed at 11/30/2024:14 Comments: 69 y.o male complains of Nausea / Vomiting, Fever Sister calling for pt, not feeling well since last night and started vomiting at 2100. He has thrown up 3 times before midnight. She tried to give him tylenol and antinausea medicine through his Gtube but threw that up as well.. He is throwing up bile, water, food. He is not throwing up blood, coffee ground emesis He does not have a liver disease, no jaundice. He is a kidney transplant since 2018, on immunosuppressant meds. He does not have abd pain. He is on Augmentin , last day )2 weeks ) for a UTI. Gtubes is just for supplement, so he is taking PO but most of meds through Gtube. Temp 100-101. He does not have any cold symptoms but very weak. PMH > stroke 2018 > left side weakness, no aphasia, some memory issues I provided information on the mobile health provider response time and advised the patient and/or caregiver to monitor reported signs and symptoms. I discussed the warning signs of when to seek emergency care. Accounting Systems Manager Organization Information for Jeff Cheatham Business Legal Name: [facility] Address: [address] [place] [address], [place] [address], [employer] Consultant: Farshad Puckett MD CLIA No.: [id number] Accounting Systems Manager POC Test Results from Jeff Cheatham [facility] (09:23:15) pH: 7.49 pH units pCO2: 33.7 mmHg pO2: 50.3 mmHg Na: 137 mmol/L K: 4.0 mmol/L iCa: 1.30 mmol/L Cl: 102 mmol/L TCO2: 23.5 mEq/L Hct: 33 % Hb: 11.2 g/dL Glu: 190 mg/dL Lac: 0.90 mmol/L Cr: 1.06 mg/dL BUN: 22 mg/dL A mmol/L HCO3: 24.5 mmol/L Urine Dipstick (09:23:17) Urine leukocytes: 3+ SJ Urine nitrites: + NIT Urine urobilinogen: - URO Urine protein: 4+ PRO Urine pH: 6.5 pH Urine blood: 3+ BLO Urine specific gravity: 1.015 SG Urine ketones: - KET Urine bilirubin: - NAGA Urine glucose: - GLU ...................... ...................... ...................... ...................... ...................... ...................... ......... Accounting Systems Manager Note From Jeff Cheatham: This visit is for 69-year-old male with history including but not limited to kidney transplant, HTN, HLD, DM type I, stroke with left sided deficits. Patient sisters requested the visit to address ongoing weakness and confusion. Sisters also report several episodes of vomiting throughout the night. Mr. pascual patient is currently being treated for a UTI by his urologist with 10 days of Augmentin, has one day left. Daughter's report low-grade fevers throughout the night. Daughters deny the patient having any chest pain, shortness of breath, headaches, dizziness or diarrhea. Sister ankur patient has been unable to tolerate anything via G-tube or PO. Allergy list on file is confirmed. [facility] urologist is sending out VNA today to collect a urine culture and labs Patient presents awake and alert, in no acute distress and speaking full sentences. His vital signs are reasonably stable and is temp is 100.4 . Baseline neurological exam. Lungs are clear throughout auscultation. Abdomen is soft, nontender, nondistended. No lower extremity edema. Unremarkable POC labs are uploaded. Urinalysis is indicative of infection, dark yellow cloudy urine, remarkable for sites, nitrates, protein and blood. Urine culture and sensitivity will be sent to [facility]. We initially decided to treat with lactated ringers 1 L IV, but due to the medication interaction with ceftriaxone, the LR was discontinued and normal saline 500 mL IV with ceftriaxone 1 g IV mixed was initiated and ondansetron 4 mg IVP. We discussed the diagnostic uncertainty of home visits and the risk associated with this. In this case, the patient and I felt this to be an acceptable and reasonable amount of risk given the benefit of avoiding an ED visit. I provided education on the patient's prescriptions as well as the importance of staying well hydrated. I instructed them to discontinue the augmenin, follow up with her urologist and present the patient to the emergency department for any new or worsening severe symptoms such as worsening AMS, uncontrollable nausea/vomiting, high fever. The patient and his family were given the opportunity to ask questions and are agreeable to this plan. We discussed the diagnostic uncertainty of home visits and the risk associated with this. In this case, the patient and I felt this to be an acceptable and reasonable amount of risk given the benefit of avoiding an ED visit. I provided education on the patient's prescriptions as well as the importance of staying well hydrated. I instructed them to discontinue the augmenin, follow up with her urologist and present the patient to the emergency department for any new or worsening severe symptoms such as worsening AMS, uncontrollable nausea/vomiting, high fever. The patient and his family were given the opportunity to ask questions and are agreeable to this plan. [facility] Lab Orders: BMP, serum or plasma: Performed culture, urine: Performed urinalysis, dipstick: Performed [facility] Medication Orders: sodium chloride 0.9 % intravenous solution: Administered lactated Ringers intravenous solution: Administered ondansetron HCl (PF) 4 mg/2 mL injection solution: Administered ceftriaxone 1 gram solution for injection: Administered ...................... ...................... ...................... ...................... ...................... ...................... ......... [facility] Consulted: Debi Reddy ...................... ...................... ...................... ...................... ...................... ...................... ......... Disposition: Fulfilled Debi Reddy MD [address] [place] [address],[address], [place], [id number] [employer] 11/30/2024 12:08:35 12/07/2024 text/html [facility] Nurse Triage Notes (Phylicia Pires): Reason For Request: aguero catheter placement Patient Reports: Inability to fully empty bladder Denies: Unable to void greater than 5 hours Erection that will not go away after 2 hours Fall or trauma that results in urinary incontinence in the setting of pain Fall or injury that results in incontinence in the absence of pain Lower back pain either unilateral or bilateral, unable to void, painful urination -hematuria Painful urination Frequent and increased urination with flank pain Painful urination with or without fever Chief Complaints: Urinary Catheter/Nephrostomy Tube Problems PMH: Organ Transplant, Hypertension, Diabetes Mellitus Type 2, Hyperlipidemia, Stroke PMH Reviewed at 12/07/2024 - 14:14 Allergies Reviewed at 12/07/2024 - 14:14 Comments: 69 y.o male complains of Urinary Catheter/Nephrostomy Tube Problems Patient had a TURP done last . Aguero catheter was removed at 9am this morning at [facility] u[facility]. Catheter was a 22Fr.Urologist is Dr. Betancur. Patient has been unable to void since 9am. No complaints of pain at this time. Was treated 1 week ago for UTI by [facility], finished antibiotic today. Denies fever/ chills. I provided information on the mobile health provider response time and advised the patient and/or caregiver to monitor reported signs and symptoms. I discussed the warning signs of when to seek emergency care. ...................... ...................... ...................... ...................... ...................... ...................... ......... Accounting Systems Manager Note From Jeff Cheatham: This visit is for 69-year-old male with a history including but not limited to organ transplant, HTN, HLD, DM type II, stroke. Patient sister request the visit because this morning he had his Aguero catheter removed at the urology office and has been unable to void since. I visited this patient one week ago for altered mental status and hypovolemia, treated with IV Rocephin and IV fluids, RX Cefpodoxime. Patient states all of his urinary symptoms have completely resolved. Sister states that normally when he has a catheter removed it takes several tries before he is able to void on his own. Urology was requesting a 22 Swazi be placed, I contacted the office and let them know that the largest size I carry in 18 Swazi which they were okay with. Urology will see the patient next week for a voiding trial. Patient presents awake and alert, in no acute distress and speaking full sentences. His vital signs are reasonably stable and he is afebrile. Baseline neurological exam. Lungs are clear throughout auscultation. Abdomen is soft, nontender, nondistended. No CVA tenderness. No lower extremity edema. I placed an 18 Swazi Aguero catheter, approximately 600 ML of urine drained, patient tolerated procedure well. We discussed the diagnostic uncertainty of home visits and the risk associated with this. In this case, the patient and I felt this to be an acceptable and reasonable amount of risk given the benefit of avoiding an ED visit. I recommend the patient stay well hydrated and call back for any new or worsening symptoms. The patient and his family were given the opportunity to ask questions and are agreeable to this plan. ...................... ...................... ...................... ...................... ...................... ...................... ......... [facility] Consulted: Massimo Lamas ...................... ...................... ...................... ...................... ...................... ...................... ......... Disposition: Colby LAMAS MD [address] [place] [address],[address], [place], [phone], [employer] [facility] 12/07/2024 17:42:36
[2024-12-31 16:16] LABS: MANUAL DIFF FLAG NO
[2024-12-31 16:30] LABS: Hematocrit 36.9 % (42.0-52.0); Hemoglobin 11.5 g/dl (14.0-18.0); Imm Gran Abs Auto 0.01 X10*3/uL (0.00-0.03); Imm Gran Pct Auto 0.2 % (0.0-0.4); Lymphocytes Absolute Auto 1.0 X10*3/uL (1.2-4.9); Mean Corpuscular HGB Conc 31.2 g/dl (31.0-36.0); Mean Corpuscular Hemoglobin 24.1 pg (27.0-33.0); Mean Corpuscular Volume 77.4 fL (80.0-98.0); NRBC Abs Auto 0.000 X10*3/uL (0.0-0.012); NRBC Pct Auto 0.0 /100WBC (0.0-0.2); Platelet Count 215 X10*3/uL (160-400); Red Blood Count 4.77 X10*6/uL (4.60-5.80); White Blood Count 5.1 X10*3/uL (4.8-10.8)
[2024-12-31 16:57] LABS: Hemoglobin A1C 210.3058 umol/L; Total Hemoglobin (HGBA1C) 4284.5063 umol/L
[2024-12-31 17:07] LABS: Appearance Urine Cloudy; Glucose Urine UA Negative (Negative); PH 7.0 (5.0-9.0); Specific Gravity - Urine <= 1.005 (1.005-1.025); UMIC TRIGGER UACC YES
[2024-12-31 17:37] LABS: UACC Culture Trigger YES
[2024-12-31 18:11] LABS: Microalbum/Creatinine Ratio Ur 147.5 ug/mg cr (<30)
[2024-12-31 18:19] LABS: Alanine Aminotransferase 12 U/L (0-40); Anion Gap 14 (12-20); Aspartate Amino Transferase 20 U/L (5-37); Blood Urea Nitrogen 17 mg/dL (9-16); Calcium 9.7 mg/dL (8.4-10.2); Carbon Dioxide 27 mmol/L (22-29); Chloride 102 mmol/L (96-108); Estimated Glomerular Filt Rate > 60; Iron 33 mcg/dL (45-160); Percent Iron Saturation 14 % (15-50); Potassium 4.5 mmol/L (3.3-5.1); Sodium 138 mmol/L (135-145); Total Iron Binding Capacity 236 mcg/dL (228-428); Unsaturated Iron Binding 203 ug/dL
[2024-12-31 18:36] LABS: Ferritin 46 ng/mL (20-250)
[2025-01-01 12:28] LABS: Tacrolimus Prograf 5.1 mcg/L
[2025-01-01 15:28] LABS: BK DNA QN RT PCR, UR 1880 IU/mL (NOT DETECTED); BK DNA QN RT PCR, UR 3.27 Log IU/mL (NOT DETECTED)
== END 2024-12-31 15:57 | disposition home or self-care (01) ==
LOC: HO.HVNA 15:56
PROVIDERS: Visit Provider Internal Medicine Nephrology
DX: Z94.0 Kidney transplant status (principal); N18.30 Chronic kidney disease, stage 3 unspecified
CPT/HCPCS: 36415; 80051; 80197; 81001; 81003; 82043; 82310; 82550; 82565; 82570; 82728; 83036; 83540; 84450; 84460; 84520; 85025; 87086; 87088; 87186; 87799

== ENCOUNTER 2025-01-08 10:29 | Outpatient (REF) | payer OTHER, SELFPAY ==
--- OUTSIDE RECORDS SUMMARY | 2025-01-06 23:59 | XMS_ITS | Continuity of Care Document ---
Author Organization [facility] ter Address [address] [place] [address]- Care Team Providers Care Grass Farmer Name Role Phone Royer NATHAN, Tennille Anton Primary Care Physician Encounter [facility] Date(s): 12/07/24 - 01/06/25 [facility] [address] [place] [id number] Attending Physician: Román Betancur MD Admitting Physician: Román Betancur MD Encounter Type: Preadmit Daystay Allergies, Adverse Reactions, Alerts Substance Criticality Severity [...] virus vaccine, inactivated 03/18/12 Blue rded SARS-CoV-2(COVID-19)mRNA-LNP vac([id number]) 05/27/23 Recorded [id number] 12y+ bivalent booster vax 05/03/22 Recorded SARS-CoV-2 (COVID-19) mRNA BNT-162b2 vac 03/02/21 Recorded SARS-CoV-2 (COVID-19) mRNA BNT-162b2 vac 08/02/20 Recorded SARS-CoV-2 (COVID-19) mRNA BNT-162b2 vac 07/12/20 Recorded tetanus/diphtheria/pertussis, acel(Tdap) 02/03/17 Recorded pneumococcal 23-valent vaccine 01/16/17 Recorded pneumococcal 23-valent vaccine 07/26/09 Given hepatitis B adult vaccine 2 01/11/15 Given hepatitis B adult vaccine 3 08/04/14 Given hepatitis B adult vaccine 4 07/07/14 Given influ virus vac, H1N1, inactive(oldterm) 07/26/09 Given 1Result Comment: [facility] [id number] 2Admin Note: recombivax 40mcg given by Charisse [...] Date: 06/30/24 Status: Ordered Repeat number: 1 amoxicillin-clavulanate 500 mg-125 mg oral tablet 1 tablet, By Mouth, Every 8 hours, # 42 tablet, 0 Refills, Maintenance, 11/19/24 2:04:00 PM EDT, Tablet, Partial fill upon patient request if the prescription is for a schedule II opioid drug. Start Date: 11/19/24 Stop Date: 12/03/24 Status: Ordered Quantity: 42.0 Unit: tablet Repeat number: 1 aspirin 81 mg oral tablet, chewable 81 mg, G Tube, Daily, Refills 0, Maintenance, 06/30/24 11:43:00 AM EST, Partial fill upon patient request if the prescription is for a schedule II opioid drug. Start Date: 06/30/24 Status: Ordered Repeat number: 1 Ativan 0.5 mg oral tablet 0.5 Unknown, Oral, 0 Refill(s), Take 1 tablet (0.5 mg total) by mouth every night, 0 Refills, 10/05/24 8:00:00 PM EDT, Partial fill upon patient request if the prescription is for a schedule II opioiddrug. Start Date: 10/05/24 Status: Ordered Repeat number: 1 bisacodyl 10 mg rectal suppository 1 supp = 10 mg, Rectally, Daily, PRN for constipation, if milk of mag ineffective, Maintenance, 07/29/24 10:36:00 AM EST, Suppository, Partial fill upon patient request if the prescription is for a schedule II opioid drug. Start Date: 07/29/24 Status: Ordered Repeat number: 1 Calmoseptine 0.44%-20.6% topical ointment See Instructions, Apply as needed for incontinence, # 4 Unknown, 6 Refills, Maintenance, 12/24/24 9:51:00 AM EDT, [facility], Partial fill upon patient request if the prescription is for a schedule II opioid drug., Apply as needed for incontinence, 170, cm, 11/27/24 10:52:00 EDT, Height, 65.7, kg, 07/28/24 1:49:00 EST, Dry Weight Start Date: 12/24/24 Status: Ordered Quantity: 4.0 Unit: Unknown Repeat number: 7 Indications: Unspecified urinary incontinence; Cardura XL 8 mg oral tablet, extended release 8 Unknown, Oral, 0 Refill(s), Take 8 mg by mouth daily with breakfast., 0 Refills, 01/05/25 8:08:00 AM EDT, Partial fill upon patient request if the prescription is for a schedule II opioid drug. Start Date: 01/05/25 Status: Ordered Repeat number: 1 ceFAZolin By Mouth, Every 12 hours, Maintenance, 12/03/24 9:53:00 AM EDT Start Date: 12/03/24 Status: Ordered Repeat number: 1 cefpodoxime 100 mg oral tablet 14 each, 0 Refill(s), 0 Refills, 01/05/25 8:08:00 AM EDT, Partial fill upon patient request if the prescription is for a schedule II opioid drug. Start Date: 01/05/25 Status: Ordered Repeat number: 1 cefpodoxime 200 mg oral tablet 14 each, 0 Refill(s), 0 Refills, 01/05/25 8:08:00 AM EDT, Partial fill upon patient request if the prescription is for a schedule II opioid drug. Start Date: 01/05/25 Status: Ordered Repeat number: 1 cephalexin monohydrate 500 mg oral capsule 14 each, 0 Refill(s), 0 Refills, 01/05/25 8:08:00 AM EDT, Partial fill upon patient request if the prescription is for a schedule II opioid drug. Start Date: 01/05/25 Status: Ordered Repeat number: 1 cholecalciferol 400 intl units oral capsule 400 Unknown, Oral, 0 Refill(s), Take 400 Units by mouth 1 (one) time each day, 0 Refills, 10/05/24 8:00:00 PM EDT, Partial fill upon patient request if the prescription is for a schedule II opioid drug. Start Date: 10/05/24 Status: Ordered Repeat number: 1 cholecalciferol 400 iu oral tablet 1 tablet = 10 mcg, G Tube, Daily, 0 Refills, Maintenance, 10/18/21 12:21:00 PM EDT, Partial fill upon patient request if the prescription is for a schedule II opioid drug. Start Date: 10/18/21 Status: Ordered Repeat number: 1 ciprofloxacin 0.3% ophthalmic solution 2 mL, 0 Refill(s), 0 Refills, 01/05/25 8:08:00 AM EDT, Partial fill upon patient request if the prescription is for a schedule II opioid drug. Start Date: 01/05/25 Status: Ordered Repeat number: 1 clindamycin 75 mg/5 ml oral powder for reconstitution 600 mL, 0 Refill(s), TAKE 20 ML VIA G-TUBE FOUR TIMES A DAY FOR 7 DAYS. DISCARD ANY REMAINDER., 0 Refills, 01/05/25 8:08:00 AM EDT, Partial fill upon patient request if the prescription is for a schedule II opioid drug. Start Date: 01/05/25 Status: Ordered Repeat number: 1 DEXCOM G6 [...] Quantity: 3.0 Unit: each Repeat number: 12 Disposable bed pads Disposable bed pads, See Instructions, # 60 each, Refills 11, Tot. Refills 11, Maintenance, 2 pads per day QUAN: lifetime Dx: R32, 01/01/25 2:42:00 PM EDT, Supply Start Date: 01/01/25 Status: Ordered Quantity: 60.0 Unit: each Repeat number: 12 Indications: Unspecified urinary incontinence; Docusate Sodium Capsule 100 mg, 1, capsule, By Mouth, 2 times a day, PRN, Refills 0, Maintenance, Constipation, 06/30/24 11:48:00 AM EST, Partial fill upon patient request if the prescription is for a schedule II opioid drug. Start Date: 06/30/24 Status: Ordered Repeat number: 1 Electric Hospital bed Electric Hospital bed, See Instructions, # 1 each, Refills 0, Tot. Refills 0, Maintenance, Ht: 170cm Wt: 65.7 kg QUAN: Lifetime Dx: R26.89; R32; I63.9, 01/01/25 2:45:00 PM EDT, Supply Start Date: 01/01/25 Status: Ordered Quantity: 1.0 Unit: each Repeat number: 1 Indications: Unspecified urinary incontinence; Unsteadiness on feet; Osteoarthritis of knee, unspecified; Cerebral infarction, unspecified; Chronic kidney disease, unspecified; Gloves Gloves, See Instructions, # 4 pack/packet, Refills 11, Tot. Refills 11, Maintenance, Size Medium 4 boxes QUAN: Lifetime Dx: R32, 01/01/25 2:36:00 PM EDT, Supply Start Date: 01/01/25 Status: Ordered Quantity: 4.0 Unit: pack/packet Repeat number: 12 Indications: Unspecified urinary incontinence; glucose 15 g/31 g oral gel 15g, [...] Soft Stop, 11/14/23 8:54:00 AM EDT, Solution, [facility], Partial fill upon patient requestif the prescription is for a schedule II opioid drug., 168, cm, 11/12/23 9:54:00 EDT, Height, 78, kg, 03/01/23 12:35:00 EDT, Dry Weight Start Date: 11/14/23 Status: Ordered Quantity: 0.2 Unit: mL Repeat number: 3 Insulin Aspart FlexPen 100 units/mL injectable solution 15 mL, 0 Refill(s), 0 Refills, 01/05/25 8:11:00 AM EDT, Partial fill upon patient request if the prescription is for a schedule II opioid drug. Start Date: 01/05/25 Status: Ordered Repeat number: 1 Insulin Degludec Inj Subcutaneous Infusion, Daily, 0 Refills, Maintenance, 12/30/24 10:26:00 AM EDT, Partial fill upon patient request if the prescription is for a schedule II opioid drug. Start Date: 12/30/24 Status: Ordered Repeat number: 1 insulin lispro 100 units/mL [...] Quantity: 15.0 Unit: mL Repeat number: 1 Insulin Lispro KwikPen 100 units/mL injectable solution 15 mL, 0 Refill(s), 0 Refills, 01/05/25 8:11:00 AM EDT, Partial fill upon patient request if the prescription is for a schedule II opioid drug. Start Date: 01/05/25 Status: Ordered Repeat number: 1 ketoconazole 2% topical cream 60 Gm, 0 Refill(s), 0 Refills, 01/05/25 8:10:00 AM EDT, Partial fill upon patient request if the prescription is for a schedule II opioid drug. Start Date: 01/05/25 Status: Ordered Repeat number: 1 Konvomep 2 mg-84 mg/mL oral suspension 300 mL, 0 Refill(s), 0 Refills, 01/05/25 8:10:00 AM EDT, Partial fill upon patient request if the prescription is for a schedule II opioid drug. Start Date: 01/05/25 Status: Ordered Repeat number: 1 lactobacillus acidophilus oral capsule 2 capsules, By Mouth, 2 times a day, 0 Refills, Maintenance, 07/28/24 2:43:00 AM EST, Partial fill upon patient request if the prescription is for a schedule II opioid drug. Start Date: 07/28/24 Status: Ordered Repeat number: 1 Large briefs Large briefs, See Instructions, # 120 each, Refills 11, Tot. Refills 11, Maintenance, Size large; 4briefs per day QUAN:Lifetime Dx: R32; N18.9, 01/01/25 2:32:00 PM EDT, Supply Start Date: 01/01/25 Status: Ordered Quantity: 120.0 Unit: each Repeat number: 12 Indications: Unspecified urinary incontinence; Chronic kidney disease, unspecified; levoFLOXacin 500 mg oral tablet 500 Unknown, Oral, 0 Refill(s), Take 1 tablet (500 mg total) by mouth every other day for 7 days, 0Refills, 12/31/24 8:00:00 PM EDT, Partial fill upon patient request if the prescription is for a schedule II opioid drug. Start Date: 12/31/24 Status: Ordered Repeat number: 1 Long grab bars Long grab bars, See Instructions, # 1 each, Refills 0, Tot. Refills 0, Maintenance, Dx: R26.89; I63.9, 01/01/25 2:10:00 PM EDT, Supply Start Date: 01/01/25 Status: Ordered Quantity: 1.0 Unit: each Repeat number: 1 Indications: Unsteadiness on feet; Cerebral infarction, unspecified; LORazepam 0.5 mg oral tablet = 0.5 [...] Date: 06/30/24 Status: Ordered Repeat number: 1 Milk of [...] 0 Refills, Maintenance, 11/06/24 12:18:00 PM EDT, [facility], Partial fill upon patient request if the prescription is for a schedule II opioid drug., 170, cm, 10/12/24 14:37:00 EDT, Height, 65.7, kg, 07/28/24 1:49:00 EST, Dry Weight Start Date: 11/06/24 Stop Date: 12/06/24 Status: Ordered Quantity: 90.0 Unit: tablet Repeat number: 1 ondansetron 4 mg oral tablet, disintegrating 15 each, 0 Refill(s), 0 Refills, 01/05/25 8:09:00 AM EDT, Partial fill upon patient request if the prescription is for a schedule II opioid drug. Start Date: 01/05/25 Status: Ordered Repeat number: 1 ondansetron 4 mg/5 mL oral solution 100 mL, 0 Refill(s), 0 Refills, 01/05/25 8:09:00 AM EDT, Partial fill upon patient request if the prescription is for a schedule II opioid drug. Start Date: 01/05/25 Status: Ordered Repeat number: 1 pantoprazole 20 mg oral delayed release tablet 1 tablet = 20 mg, By Mouth, Daily in AM, 0 Refills, Maintenance, 06/03/24 9:18:00 PM EST, CR Tablet Start Date: 06/03/24 Status: Ordered Repeat number: 1 pantoprazole 40 mg oral granule 30 each, 0 Refill(s), 0 Refills, 01/05/25 8:09:00 AM EDT Start Date: 01/05/25 Status: Ordered Repeat number: 1 Robitussin DM Liquid 10 mL, By Mouth, Every 4 hours, PRN Cough, 0 Refills, Maintenance, 06/30/24 11:48:00 AM EST, Syrup, Partial fill upon patient request if the prescription is for a schedule II opioid drug. Start Date: 06/30/24 Status: Ordered Repeat number: 1 Rollator walker Rollator walker, See Instructions, # 1 each, Refills 0, Tot. Refills 0, Maintenance, Wt: 65.7 Kg Ht: 170 cm QUAN: lifetime DX: R26.89; M17.9, 01/01/25 2:07:00 PM EDT, Supply Start Date: 01/01/25 Status: Ordered Quantity: 1.0 Unit: each Repeat number: 1 Indications: Unsteadiness on feet; Osteoarthritis of knee, unspecified; rosuvastatin 40 mg oral tablet 1 tablet [...] 07/29/24 Status: Ordered Repeat number: 1 sertraline 20 mg/mL oral concentrate 120 mL, 0 Refill(s), 0 Refills, 01/05/25 8:09:00 AM EDT, Partial fill upon patient request if the prescription is for a schedule II opioid drug. Start Date: 01/05/25 Status: Ordered Repeat number: 1 tacrolimus 1 mg oral capsule 1 capsule = 1 mg, By Mouth, Every 12 hours, 0 Refills, Maintenance, 11/27/24 1:56:00 PM EDT, Partial fill upon patient request if the prescription is for a schedule II opioid drug. Start Date: 11/27/24 Status: Ordered Repeat number: 1 tamsulosin 0.4 mg oral capsule 0.4 mg, 1, capsule, By Mouth, Daily, # 90 capsule, Refills 3, Tot. Refills 3, Maintenance, 11/19/24 2:25:00 PM EDT, Route to Pharmacy Electronically, [facility], Partial fill upon patient request if the prescription is for a schedule II opioid drug., 170, cm, 11/19/24 14:10:00 EDT, Height, 65.7, kg, 07/28/24 1:49:00 EST, Dry Weight Start Date: 11/19/24 Stop Date: 11/14/25 Status: Ordered Quantity: 90.0 Unit: capsule Repeat number: 4 Tub transfer bench Tub transfer bench, See Instructions, # 1 each, Refills 0, Tot. Refills 0, Maintenance, DX: I63.9; G81.94, 11/30/24 10:34:00 AM EDT, Supply Start Date: 11/30/24 Status: Ordered Quantity: 1.0 Unit: each Repeat number: 1 Indications: Hemiplegia, unspecified affecting left nondominant side; Cerebral infarction, unspecified; Wipes Wipes, See Instructions, # 4 pack/packet, Refills 11, Tot. Refills 11, Maintenance, 4 boxes QUAN: Lifetime Dx: R32, 01/01/25 2:39:00 PM EDT, Supply Start Date: 01/01/25 Status: Ordered Quantity: 4.0 Unit: pack/packet Repeat number: 12 Indications: Unspecified urinary incontinence; Problem List Condition Confirmation Course Effective Dates [...] Team Personnel Name: Marcy Gilmore RN Position: [facility] RN Member Role: Primary Care Nurse Name: Cata Pozo RN Position: [facility] RN Member Role: Primary Care Nurse Name: Brittni Woods RN Position: [facility] AMB Nurse Member Role: Primary Care Nurse Name: Gildardo Shin RN Position: [facility] RN Member Role: Primary Care Nurse Name: Mayi Willard RN Position: [facility] RN Member Role: Primary Care Nurse Name: Daisy Palma RN Position: [facility] RN Member Role: Primary Care Nurse Name: Louise Palacios RN Position: [facility] RN Member Role: Primary Care Nurse Name: Renea Bustamante MA Position: [facility] AMB [place] Member Role: Lifetime Consulting Physician Name: Francine Denney RN Position: [facility] RN Member Role: Primary Care Nurse Name: Zeinab Walker Position: [facility] Outreach Member Role: Lifetime Consulting Physician Name: Benja Deluca RN Position: [facility] RN Member Role: Primary Care Nurse Name: Hussein Gage LPN Position: [facility] RN Member Role: Primary Care Nurse Name: Mayi Adkins RN Position: [facility] RN Member Role: Primary Care Nurse Name: Jennifer Bermeo RN Position: [facility] RN Member Role: Primary Care Nurse Name: Pamela Zambrano RN Position: [facility] OB RN Member Role: Primary Care Nurse Name: Flower Noel RN Position: [facility] RN Member Role: Primary Care Nurse Name: Simon Ortega RN Position: [facility] RN Member Role: Primary Care Nurse Name: Peter Martins RN Position: [facility] RN Member Role: Primary Care Nurse Name: Michelle Astorga NP Position: [facility] Associate Professional Member Role: Lifetime Consulting Provider Address: [address] [facility] [address] Telecom: Name: Jesus Ortega MD Position: [facility] Renal MD Member Role: Lifetime Consulting Physician Address: [address] [facility] [address] Telecom: Name: Lilly Alarcon Position: [facility] Outreach Member Role: Lifetime Consulting Physician Name: Giancarlo Collins RN Position: [facility] ED RN W/OE and Tasks Member Role: Primary Care Nurse Name: Starr Baron RN Position: [facility] RN Member Role: Primary Care Nurse Name: Dori Zendejas RN Position: [facility] AMB Nurse Member Role: Primary Care Nurse Name: Kennedy Childs DO Position: [facility] Renal MD Member Role: Lifetime Consulting Physician Address: [address] [facility] [address] Telecom: Name: Jose Alberto Bergeron RN Position: [facility] RN Member Role: Primary Care Nurse Name: Tennille Linton NP Position: [facility] PCO Associate Professional Member Role: PCP Address: [address] [place] [address] [address] Floor [facility] [place] [address]- [place] Tele[employer]: Name: Aline Luke RN Position: [facility] RN Member Role: Primary Care Nurse Name: Tracy Garnica RN Position: S RN Member Role: Primary Care Nurse Name: Rashi Kaur RN Position: [facility] RN Member Role: Primary Care Nurse Name: Brady Copeland RN Position: [facility] RN Member Role: Primary Care Nurse Name: Gaurav Garcia RN Position: [facility] RN Member Role: Primary Care Nurse Name: Rene Ibanez RN Position: [facility] RN Member Role: Primary Care Nurse Name: Amol Hammond RN Position: [facility] RN Member Role: Primary Care Nurse Name: Meme Pat RN Position: [facility] RN Member Role: Primary Care Nurse Name: Aicha Cao RN Position: [facility] RN Member Role: Primary Care Nurse Name: Kathe Lynn RN Position: [facility] RN Member Role: Primary Care Nurse Name: Swapnil Bolanos MD Position: [facility] Renal MD Member Role: Lifetime Consulting Physician Address: [address] [place] [address] [facility] [place] [address]- [place] Tele[employer]: Name: Lonnie David RN Position: [facility] RN Member Role: Primary Care Nurse Name: Carly Lopez RN Position: [facility] RN Member Role: Primary Care Nurse Name: Erica Arizmendi RN Position: [facility] RN Member Role: Primary Care Nurse Name: Reji Kan RN Position: [facility] RN Member Role: Primary Care Nurse Name: Esequiel Lenz RN Position: [facility] RN Member Role: Primary Care Nurse Name: Ramila Perez RN Position: [facility] RN Member Role: Primary Care Nurse Name: Johnnie Moore RN Position: [facility] RN Member Role: Primary Care Nurse Name: Duglas Forrester MD Position: [facility] Renal MD Member Role: Lifetime Consulting Physician Address: [address] [place] [address] [address] [facility] [place] [address]- [place] Tele[employer]: Name: Renea Angel RN Position: [facility] RN Member Role: Primary Care Nurse Care Team Related Persons Name: TRISH AU Name: PATT BEEBE Name: MAYITO ROSA Insurance Providers Guarantor name: [facility] Information #: 1 Payer: GROUP ACCOUNT Payer Identifier: NA Member Number: NA Group Number: NA Subscriber Identifier: [id number] Relationship to Subscriber: self Coverage Type: MISCELLANEOUS/OTHER Coverage Verification Date: NA Telecom: NA Address:
--- OUTSIDE RECORDS SUMMARY | 2025-01-07 23:59 | XMS_ITS | Continuity of Care Document ---
Author Organization [facility] Adult Address [address] [place] [address]- Care Team Providers Care Utility Mechanic Name Role Phone Royer TANK FURNACE OPERATOR, Tennille Anton Primary Care Physician Encounter [facility] Date(s): 12/08/24 - 01/07/25 [facility] [address] [place] [id number] Encounter Type: Triage Allergies, Adverse Reactions, Alerts Substance Criticality Severity Reaction Reaction Severity Status Dilaudid Active Percocet 5/325 nausea Activ e oxyCODONE Active Immunizations Given and Recorded Vaccine Date Status Refusal Reason influenza virus vaccine, inactivated 06/04/24 Give n influenza virus vaccine, inactivated 05/27/23 Blue rded influenza virus vaccine, inactivated 1 04/07/21 Gi rajiv influenza virus vaccine, inactivated 04/18/18 Blue rded influenza virus vaccine, inactivated 02/03/17 Blue rded influenza virus vaccine, inactivated 04/19/16 Blue rded influenza virus vaccine, inactivated 03/18/12 Blue rded SARS-CoV-2(COVID-19)mRNA-LNP vac([id number]) 05/27/23 Recorded [id number] 12y+ bivalent booster vax 05/03/22 Recorded SARS-CoV-2 [...] vac, H1N1, inactive(oldterm) 07/26/09 Given 1Result Comment: [facility] [id number] 2Admin Note: recombivax 40mcg given by Charisse [...] 6 Refills, Maintenance, 12/24/24 9:51:00 AM EDT, [facility], Partial fill upon patient [...] Repeat number: [address] [facility] bed, See Instructions, # 1 each, [...] Soft Stop, 11/14/23 8:54:00 AM EDT, Solution, [facility], Partial fill upon patient [...] 0 Refills, Maintenance, 11/06/24 12:18:00 PM EDT, [facility], Partial fill upon patient [...] 2:25:00 PM EDT, Route to Pharmacy Electronically, [facility], Partial fill upon patient [...] Team Personnel Name: Marcy Gilmore RN Position: [facility] RN Member Role: Primary Care Nurse Name: Cata Pozo RN Position: [facility] RN Member Role: Primary Care Nurse Name: Brittni Woods RN Position: [facility] AMB Nurse Member Role: Primary Care Nurse Name: Gildardo Shin RN Position: [facility] RN Member Role: Primary Care Nurse Name: Mayi Willard RN Position: [facility] RN Member Role: Primary Care Nurse Name: Daisy Palma RN Position: [facility] RN Member Role: Primary Care Nurse Name: Louise Palacios RN Position: [facility] RN Member Role: Primary Care Nurse Name: Reena Bustamante MA Position: [facility] AMB MA Member Role: Lifetime Consulting Physician Name: Francine Denney RN Position: [facility] RN Member Role: Primary Care Nurse Name: Zeinab Walker Position: [facility] Outreach Member Role: Lifetime Consulting Physician Name: Benja Deluca RN Position: [facility] RN Member Role: Primary Care Nurse Name: Hussein Gage LPN Position: [facility] RN Member Role: Primary Care Nurse Name: Mayi Adkins RN Position: [facility] RN Member Role: Primary Care Nurse Name: Jennifer Bermeo RN Position: [facility] RN Member Role: Primary Care Nurse Name: Pamela Zambrano RN Position: [facility] OB RN Member Role: Primary Care Nurse Name: Flower Noel RN Position: [facility] RN Member Role: Primary Care Nurse Name: Simon Ortega RN Position: [facility] RN Member Role: Primary Care Nurse Name: Peter Martins RN Position: [facility] RN Member Role: Primary Care Nurse Name: Michelle Astorga NP Position: [facility] Associate Professional Member Role: Lifetime Consulting Provider Address: [address] [facility] [address] Telecom: Name: Jesus Ortega MD Position: [facility] Renal MD Member Role: Lifetime Consulting Physician Address: [address] [facility] [place] [address]- Telecom: Name: Lilly Alarcon Position: [facility] Outreach Member Role: Lifetime Consulting Physician Name: Giancarlo Collins RN Position: [facility] ED RN W/OE and Tasks Member Role: Primary Care Nurse Name: Starr Baron RN Position: [facility] RN Member Role: Primary Care Nurse Name: Dori Zendejas RN Position: [facility] AMB Nurse Member Role: Primary Care Nurse Name: Kennedy Childs DO Position: [facility] Renal MD Member Role: Lifetime Consulting Physician Address: [address] [facility] [place] [address]- [place] Telecom: Name: Jose Alberto Bergeron RN Position: [facility] RN Member Role: Primary Care Nurse Name: Tennille Linton NP Position: [facility] PCO Associate Professional Member Role: PCP Address: [address] [place] [address] [address] [place] [address]- Telecom: Name: Aline Luke RN Position: [facility] RN Member Role: Primary Care Nurse Name: Tracy Garnica RN Position: S RN Member Role: Primary Care Nurse Name: Rashi Kaur RN Position: S RN Member Role: Primary Care Nurse Name: Brady Copeland RN Position: S RN Member Role: Primary Care Nurse Name: Gaurav Garcia RN Position: S RN Member Role: Primary Care Nurse Name: Rene Ibanez RN Position: [facility] RN Member Role: Primary Care Nurse Name: Amol Hammond RN Position: S RN Member Role: Primary Care Nurse Name: Meme Pat RN Position: [facility] RN Member Role: Primary Care Nurse Name: Aicha Cao RN Position: [facility] RN Member Role: Primary Care Nurse Name: Kathe Lynn RN Position: [facility] RN Member Role: Primary Care Nurse Name: Swapnil Bolanos MD Position: [facility] Renal MD Member Role: Lifetime Consulting Physician Address: [address] [place] [address] [facility] [place] [address]- Telecom: Name: Lonnie David RN Position: [facility] RN Member Role: Primary Care Nurse Name: Carly Lopez RN Position: [facility] RN Member Role: Primary Care Nurse Name: Erica Arizmendi RN Position: [facility] RN Member Role: Primary Care Nurse Name: Reji Kan RN Position: [facility] RN Member Role: Primary Care Nurse Name: Esequiel Lenz RN Position: [facility] RN Member Role: Primary Care Nurse Name: Ramila Perez RN Position: [facility] RN Member Role: Primary Care Nurse Name: Johnnie Moore RN Position: [facility] RN Member Role: Primary Care Nurse Name: Duglas Forrester MD Position: [facility] Renal MD Member Role: Lifetime Consulting Physician Address: [address] [place], [place] [id number] [facility] [place] [address]- [place] Telecom: Name: Renea Angel RN Position: S RN Member Role: Primary Care Nurse Care Team Related Persons Name: TRISH AU Name: PATT BEEBE Name: MAYITO ROSA Insurance Providers Guarantor name: [facility] Information #: 1 Payer: GROUP ACCOUNT Payer Identifier: NA Member Number: NA Group Number: NA Subscriber Identifier: [id number] Relationship to Subscriber: self Coverage Type: MISCELLANEOUS/OTHER Coverage Verification Date: NA Telecom: NA Address: NA
--- OUTSIDE RECORDS SUMMARY | 2025-01-08 10:58 | XMS_ITS | Encounter Summary ---
Author Organization [facility], Address [address] [place] [address] Phone Care Team Providers Care Activities Director Name Role Phone Tennille Linton GRANITE SANDBLASTER APPRENTICE Primary Care Provider + Encounter Details Date Type Department Care Team (Late st Contact Info) Description 06/04/2024 Documentation Only [facility], [address] [place] [address] Annika [place] [address] [place] [address] Social History Tobacco Use Types [...] on filedocumented in this encounter Care Teams Activities Director Relationship Specialty Start Date End Date Tennille [place] [phone] PCP - General Nurse Practitioner 08/07/23 documented as of this encounter
--- OUTSIDE RECORDS SUMMARY | 2025-01-08 10:58 | XMS_ITS | Encounter Summary ---
Author Organization [facility] Address [address] [place] [address] Care Team Providers Care Geographic Information Scientist Name Role Phone Elder, Michelle Alonso MD Primary Care Provider + Encounter Details Date Type Department Care Team (Late st Contact Info) Description 12/15/2024 Lab Requisition [facility] [address] [facility] [place] [address] Harshad Thornton, PA [address] [place], [place] [id number] Urinary tract infection, site not specified Social [...] Procedure Name Priority Date/Time Associated Diagnosis Comments CULTURE URINE Routine 12/15/2024 12:00 AM EDT Urinary tract infection, site not specified documented in this encounter Results * (ABNORMAL) Culture urine (12/15/2024 12:00 AM EDT) Culture, Urine 10,000-49,000 CFU/mL Pseudomonas aeruginosa(A) YENNIFER 12/18/2024 10:25 AM EDT [facility] Comment: This is an edited result. Previous organism was Gram negative bacilli on 12/16/2024 at 1300 EDT. Urine Urine specimen obtained by clean catch procedure / Unknown 12/15/2024 12/15/2024 5:54 PM EDT Narrative Organism Antibiotic Method Susceptibility Pseudomonas aeruginosa Piperacillin/Tazobactam YENNIFER 8 ug/ml: Susceptible Pseudomonas aeruginosa Ceftazidime YENNIFER 4 ug/ml: Susceptible Pseudomonas aeruginosa Meropenem YENNIFER 8 ug/ml: Resistant Pseudomonas aeruginosa Amikacin YENNIFER 8 ug/ml: Susceptible Pseudomonas aeruginosa Ciprofloxacin YENNIFER 0.5 ug/ml: Susceptible Pseudomonas aeruginosa Levofloxacin YENNIFER 1 ug/ml: Susceptible Pseudomonas aeruginosa Cefepime DISK DIFFUSION Susceptible [facility] MICROBIOLOGY - [facility] KEIRY LEACH Final Result [facility] ([facility] [address] [place] [address], documented in this encounter Visit Diagnoses Diagnosis Urinary tract infection, site not specified documented in this encounter Additional Health Concerns Infection Onset Date Last Indicated Resolved Time MDRO (other) 12/15/2024 12/15/2024 documented as of this encounter Care Teams Geographic Information Scientist Relationship Specialty Start Date End Date Michelle Rucker MD [address] [place] [id number] PCP - General Family Medicine 05/06/24 documented as of this encounter
--- OUTSIDE RECORDS SUMMARY | 2025-01-08 10:58 | XMS_ITS | Data Portability ---
Author Organization [employer] [facility], [facility] Address [address] [place] [address] Care Team Providers Care Electromechanical Equipment Assembler Name Role Phone GERARDO RHOADES Primary Care Provider HIM CCA OTHER Assessment Encounter Date Assessment Date Assessment LastModified by Organization Details LastModified Time 11/30/2024 11/30/2024 I provided real -time medical direction via phone for this encounter and was available for additional phone-based assistance as needed. I have reviewed and agree with the Assessment and Plan as documented by the Skull Chopper. Patient given the opportunity to ask questions. [...] has been febrile up to 101. Per circular sawyer helper on the scene, Vital signs are stable . Patient is febrile at 100.4. Nontoxic in appearance. BMP is reassuring. Urinalysis is positive for both nitrates and leukocytes. Impression and plan: Ongoing urinary tract infection on Augmentin. May be contributing to nausea vomiting. Patient was given an mcve-yyj-rqlxcvc medication for nausea which did not alleviate [...] since this morning, and had an 18 egyptian aguero catheter replaced by the community circular sawyer helper (no 22 egyptian available). His urologist's office was contacted for follow-up. At this time he appears safe to remain at home with outpatient follow-up with his urologist for repeat TOV. Not available 12/07/2024 15:08:11 01/01/2025 01/01/2025 I provided real -time medical direction via phone for this encounter and was available for additional phone-based assistance as needed. I have reviewed and agree with the Assessment and Plan as documented by the Skull Chopper. Patient given the opportunity to ask questions. Our service contacted for an assessment of: Urinary symptoms As per above, patient withkidney transplant. Has been treated off and on for UTIs with transplant Team. Last abx Saturday. + history of frequent urinary tract infections. Denies fever, chills, abdominal pain, back pain, flank pain. Gave sample to transplant team and awaiting call back for treatment Per circular sawyer helper on the scene, Vital signs are stable and the patient is afebrile. Patient is nontoxic in appearance. UA is positive for leukocytes. Impression: Urinary symptoms and UTI Plan: Transplant team is f/u their own culture and called in a prescription for abx Allergies: reviewed We discussed the diagnostic uncertainty of home visits and the risk associated with this. In this case, the patient and I felt this to be an acceptable and reasonable amount of risk given the benefit of avoiding an ED visit. We discussed the need to seek care urgently/emergentl y in the setting of any new or worsening serious symptoms, particularly fever chills [email or web address] Not available 01/01/2025 17:02:56 Plan of Treatment Reminders Order Date Submit Date Provider Last Modified By Organization Details Last Modified Time Details Appointments None recorded. Lab urinalysis, dipstick 2024 025 [facility], [address] [place] [address], [id number] 17:03:48 BMP, serum or plasma 2024 025 [facility], [address] [place] [address], [id number] 14:08:14 culture, urine 2024 025 [facility] (Centralized Electronic Ordering - All Locations), Patient Can Go To The Location Of Their Choice, [facility] 16:06:18 urinalysis, dipstick 2024 025 [facility], [address] [place] [address], [id number] 14:08:32 Referral None recorded. Procedures catheterlaurena more forrest (PROC) 2024 025 Not available 15:06:01 Surgeries None recorded. Imaging None recorded. Medication Orders sodium chloride 0.9 % intravenous solution [address] [facility], [address] [place] [address], [id number], 5 09:49:51 lactated Ringers intravenous solution [address] [facility], [address] [place] [address], [address], 5 10:47:40 ondansetron HCl (PF) 4 mg/2 mL injection solution [address] [facility], [address] [place] [address], [address], 09:44:17 ondansetron 4 mg disintegrat ing tablet 2024 025 [facility], [address] [place] [address], [address], 13:21:27 cefpodoxime 100 mg tablet 2024 025 [facility], [address] [place] [address], [address], 14:21:32 ceftriaxone 1 gram solution for injection [address] [facility], [address] [place] [address], [address], 09:44:17 Patient TargetsNo targets recorded. Patient InstructionsNo instructions recorded. Reason for Referral None Reported. Results Created Date Observation Date Name Description Value Unit Range Abnormal Flag Note LastModifiedBy Organization Detail LastModifiedTime 12/01/1912/04/2024 URINE CULTU RE, UROLO GY MARIAH P urine culture, urology workup Final report abnormal Not Available [facility] ([facility]) [address] [facility], [place], [address], 12/04/2024 10:06:05 12/01/1912/04/2024 URINE CULTU RE, UROLO GY MARIAH P [...] INOSA SENSI TIVIT IES Not Available [facility] ([facility]) [address] [facility], [place], [address], 12/04/2024 10:06:05 12/01/19 25 12/04/2024 URINE CULTU [...] ng units per mL Not Available [facility] ([facility]) [address] [facility], [place], [address], 12/04/2024 10:06:05 12/01/19 25 12/04/2024 URINE CULTU [...] Tobra mycin S S Not Available [facility] ([facility]) [address] [facility], [place], [address], 12/04/2024 10:06:05 Result Notes None recorded. Medical Equipment None Reported. Allergies Allergen ID Allergen Name Allergen Category Reaction Reaction Severity Criticality Documentation Date Start Date Code Code System Note Provider Name and Address Organization Details Recorded Time 41577 Dilaudid medicatio n Not available Not available Not available 11/30/2024 94377 3 RxNorm Not Available [facility] - production 08:15:01 27016 oxycodone medicatio n Not available Not available Not available 11/30/2024 7804 [facility] 08:15:01 68479 acetamino phen / oxycodone medicatio n Not available Not available Not available 11/30/2024 60434 3 RxNorm Not Available [facility] 08:15:01 Medications Name Sig Start Date [...] % 100.4 [degF] 136/71 mm[Hg] Not Available [facility] 5 09:06:09 Date Recorded Heart rate Oxygen saturation Oxygen saturation in Arterial blood by Pulse oximetry Body temperature Respiratory rate Systolic And Diastolic Provider Name and Address Organization Details Last Updated DateTime 5 77 /min 97 % 97 % 97.7 [degF] 14 /min 152/71 mm[Hg] Not Available [facility] - production 5 15:01:16 Date Recorded Respiratory rate Heart rate Body height Oxygen saturation Oxygen saturation in Arterial blood by Pulse oximetry Body weight Body temperature Systolic And Diastolic Provider Name and Address Organization Details Last Updated DateTime 8 /min 80 /min 170.18 cm 96 % 96 % 01254.8 g 96.5 [degF] 140/72 mm[Hg] Not Available [facility] - production 15:50:33 Social History None recorded. Functional Status None recorded. Mental Status None recorded. Family History Nothing Reported. Medical History No medical history recorded. Past Encounters Encounter ID Performer Location Encounter Start Date Encounter Closed Date Diagnosis/Indication Diagnosis SNOMED-CT Code Diagnosis ICD10 Code Diagnosis Note [id number] Debi Reddy MD [facility] [address] [address] 11/30/2024 09:06:06 11/30/2024 20:31:14 Nausea and vomiting 70731248 R11.2 Disorder o f urinary system 379405923 R39.89 [id number] MASSIMO LAMAS MD [address] [address] 12/07/2024 15:01:14 12/07/2024 19:55:13 Acute retention of urine 586034856 R33.8 [id number] Debi Reddy MD [address] [address] 01/01/2025 15:50:29 01/01/2025 18:07:15 Urinary system finding 777592332 R39.9 Health Concerns Section Related Observation LastModified by Organization Detai ls LastModified Time None Recorded Concern Status LastModified by Organization Details LastModified Time None Recorded Advance Directives Directive None Recorded Payers Insurance Date Sequence Insurance Name Policy Number Policy Hood Covered Member ID Hood Member ID Guarantor Name 01/01/[address] [facility] - DOS ON OR AFTER 2022 - DUAL ELIGIBLE - LONGTERM OPTIONS AND ONE CARE (MEDICARE REPLACEMENT/ADV ANTAGE - HMO) [employer] [id number] [employer] Notes Date Note Type Note [...] signs of when to seek emergency care. Skull Chopper Organization Information for Jeff Cheatham Business Legal Name: [facility] Address: [address] [place] [address], [place] [address], Cardiac Catheterization Technologist: Farshad Puckett MD CLIA No.: [id number] Skull Chopper POC Test Results from Jeff Cheatham [facility] (09:23:15) pH: 7.49 pH units pCO2: 33.7 [...] ...................... ...................... ...................... ...................... ...................... ...................... ......... Skull Chopper Note From Jeff Cheatham: This visit is [...] PO. Allergy list on file is confirmed. [facility] is sending out VNA today to [...] questions and are agreeable to this plan. [facility] Lab Orders: BMP, serum or plasma: Performed culture, urine: Performed urinalysis, dipstick: Performed [facility] Medication Orders: sodium chloride 0.9 % intravenous solution: Administered lactated Ringers intravenous solution: Administered ondansetron HCl (PF) 4 mg/2 mL injection solution: Administered ceftriaxone 1 gram solution for injection: Administered ...................... ...................... ...................... ...................... ...................... ...................... ......... [facility] Consulted: Debi Reddy ...................... ...................... ...................... ...................... ...................... ...................... ......... Disposition: Fulfilled Debi Reddy MD [address] [place] [address],[address], [place], [address], [facility] - [employer] 11/30/2024 12:08:35 12/07/2024 text/html CRC Nurse Triage [...] was [facility]. Catheter was a 22Fr.Urologist is [...] ...................... ...................... ...................... ...................... ...................... ...................... ......... Skull Chopper Note From Jeff Cheatham: This visit is [...] his own. Urology was requesting a 22 Colombian be placed, I contacted the office and let them know that the largest size I carry in 18 Colombian which they were okay with. Urology will see the patient next week for a voiding trial. Patient presents awake and alert, in no acute distress and speaking full sentences. His vital signs are reasonably stable and he is afebrile. Baseline neurological exam. Lungs are clear throughout auscultation. Abdomen is soft, nontender, nondistended. No CVA tenderness. No lower extremity edema. I placed an 18 Colombian Aguero catheter, approximately 600 ML of urine [...] ...................... ...................... ...................... ...................... ...................... ...................... ......... [facility] Consulted: Massimo Lamas ...................... ...................... ...................... ...................... ...................... ...................... ......... Disposition: Fulfilled MASSIMO LAMAS MD [address] [place] [address],[address] [facility], [place], [address], [employer] 12/07/2024 17:42:36 01/01/2025 text/html CRC Nurse Triage Notes (Phylicia Pires): Reason For Request: Pt's sister Leatha reporting UTI Denies: Unable to void greater than 5 hours Erection that will not go away after 2 hours Fall or trauma that results in urinary incontinence in the setting of pain Fall or injury that results in incontinence in the absence of pain Lower back pain either unilateral or bilateral, unable to void, painful urination -hematuria Chief Complaints: Urinary Symptoms PMH: Organ Transplant, Hypertension, Diabetes Mellitus Type 2, Hyperlipidemia, Stroke PMH Reviewed at 01/01/2025 13:45 Allergies Reviewed at 01/01/2025 - 13:45 Comments: 69 y.o male complains of Urinary Symptoms Per sister, Finished Cefpodoxime for UTI on Saturday. Symptoms worsening since Saturday. Sister states he is cognitively and physically deteriorating. Patient is weak, decreased appetite and nausea. No fever. Urine was dark and cloudy yesterday. Patient has increased fluid intake and urine is game manager today. Patient has a catheter for urinary. Has an appt at the end of the month to trial removing catheter. I provided information on the mobile health provider response time and advised the patient and/or caregiver to monitor reported signs and symptoms. I discussed the warning signs of when to seek emergency care. Skull Chopper Organization Information for Nahun Raleigh Edwards [employer] Legal Name: [facility] Address: [address] [place] [address], [place] [address], Cardiac Catheterization Technologist: Farshad TAN No.: [id number] Skull Chopper POC Test Results from [facility] Urine Dipstick (16:03:01) Urine leukocytes: plus 2 SJ Urine nitrites: neg NIT Urine urobilinogen: neg URO Urine protein: neg PRO Urine pH: 7.5 pH Urine blood: trace BLO Urine specific gravity: 1.020 SG Urine ketones: neg KET Urine bilirubin: neg NAGA Urine glucose: neg GLU ...................... ...................... ...................... ...................... ...................... ...................... ......... Skull Chopper Note From Raleigh Garnica: 69 year-old male complaining of continued malaise and mildly altered mental status over the last month due to multiple UTIs is on fourth course of treatment including Oxidine times two Augmentin and cephalexin. Sister believes he is still having UTI issues and notes. He is weaker than usual and isn t not able to hold a pen steady today . Patient easily arousable.and smiling. 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 Your dipstick was positive for leukocytes contacted Dr. Reddy who advised because of kidney transplant that his renal team should do the prescribing sister called renal team and they called in prescription of Levaquin for him to their pharmacy and she was on her way to pick it up. Patient smiled and said thank you for the visit. Patient in no distress. [facility] Lab Orders: urinalysis, dipstick: Performed ...................... ...................... ...................... ...................... ...................... ...................... ......... [facility] Consulted: Debi Reddy ...................... ...................... ...................... ...................... ...................... ...................... ......... Disposition: Fulfilled Debi Reddy MD [address] [facility],[address], [place], [address], VICK[facility] Edwards Function SpaceTERRI SPANGLER 01/01/2025 17:03:04
--- OUTSIDE RECORDS SUMMARY | 2025-01-08 10:58 | XMS_ITS | Continuity of Care Document ---
Author Organization [facility] Address [address] [facility] [address] [place], [place] Phone [phone] Care Team Providers Care Hvac Project Manager Name Role Phone Lashell Aguilar MD Care [...] SIG Qnty Indications Order ing Provider Date Tgxcvdc064Fpfi/ML Solution 6-10 unit subcutaneous three times a day 3vials Tessa Paredes M.D. 03/19/2017 Rosuvastatin Fazaybd1yf Tablets 1/2 By Mouth Every Day 14tabs E10.8 Tessa Paredes M.D. 10/15/2016 [facility] Syr/NDL 29G 0.5ML U/F Use 1 Syringe Under The Skin Three Times Daily 90units E10.8 Tessa Paredes M.D. 12/03/2014 Freestyle Lite TestStrips 1 Strip To Meter 8 Times A Day 750units E10.8 Tessa Paredes M.D. 11/27/2014 N25.9 Xmtzsc878Vyxb/ML Solution 12 unit subcutaneous twice a day 1units Tessa Paredes M.D. 11/05/2014 Freestyle LiteStrips (Blood Sugar Use 1 Strip Every Two Hours While Awake Check Blood Sugar 6-8 Timesa Day 750units E10.8 Tessa Paredes M.D. 09/29/2014 Uripvexzld22oo Tablets TK 1 T PO qd Unkn own Idmyvrjvrq01.5mg Tablets TK 1 T PO bid U nknown Amlodipine Aipqemkb29rl Tablets 1 by mouth every day Jeff Lobo MD Jwnfcifgi1zb Tablets 1 by mouth every day 30tabs Tessa Paredes M.D. Hydralazine MQQ34wy Tablets Jeff Lobo MD Doxazosin Nhanfmrw8ta Tablets TK 1 T PO QHS Unknown Cxfjbb213bu Tablets 1 tab by mouth daily Unknown Citrate Unknown History Medications Pravastatin Fdazcu10gv Tablets 1 by mouth every day 30tabs E10.8 Tessa Paredes M.D. 07/06/2016 - 10/15/2016 Levothyroxine Iuycut34lzu Tablets 1/2 by mouth every day=12.5/d 45tabs E03.9 Tessa Paredes M.D. 04/05/2016 - 07/06/2016 Caccqja552Dviy/ML Solution inject 6-10 units subcutaneously 3 times a day 30ml Tessa Paredes M.D. 11/05/2014 - 03/19/2017 Sertraline UJH14ta Tablets TK 1 T PO qd Unknown - 11/05/2014 Oxycodone HCL5mg Tablets Unknown - 11/05/2014 Ndlokb701Nnkc/ML Solution Jeff Lobo MD - 11/05/2014 Penicillin V Rxldcngjq080zd Tablets TK 1 T PO Q 6 H Tat Unknown - 11/05/2014 Hydrocodone-Acetamin ophen5-325mg Tablets TK 1 T PO Q 4 To 6 H prn P For 7 Days Unknown - 11/05/2014 Tamsulosin HCL0.4mg Capsules TK One C PO bid For 30 Days Unknown - 11/05/2014 Raybkaso57ub Tablets TK 2 TS PO D For 30 Days Unknown - 11/05/2014 Ciprofloxacin ZHF375oh Tablets TK 1 T PO Once D Unknown - 11/05/2014 Hydrocodone-Acetamin -260ey Tablets TK 1 T PO Q 6 H prn P Unknown - 11/05/2014 Ondansetron HCL8mg Tablets TK 1 T PO tid Unknown - 11/05/2014 Fygzzcrv884ye Tablets TK 1 T PO D For 30 Days Unknown - 11/05/2014 Losartan Dtburatii462tw Tablets TK 1 T PO qd Unknown - 11/05/2014 Trazodone BQC92am Tablets TK 1 T PO qd Unknown - 11/05/2014 Atorvastatin Sarncnz82af Tablets TK 1 T PO Once A Day hs Unknown - 11/05/2014
[2025-01-08 10:59] LABS: Appearance Urine Cloudy; Glucose Urine UA Negative (Negative); PH 7.5 (5.0-9.0); Specific Gravity - Urine 1.010 (1.005-1.025); UMIC TRIGGER UA YES
[2025-01-09 09:54] LABS: Tacrolimus Prograf 3.4 mcg/L
== END 2025-01-08 10:30 | disposition home or self-care (01) ==
LOC: HO.HVNA 10:29
PROVIDERS: Visit Provider Internal Medicine Nephrology
DX: N39.0 Urinary tract infection, site not specified (principal); N19 Unspecified kidney failure; Z79.899 Other long term (current) drug therapy
CPT/HCPCS: 36415; 80197; 81001; 87086; 87088; 87186

== ENCOUNTER 2025-03-04 11:08 | Outpatient (REF) | payer OTHER, SELFPAY ==
--- OUTSIDE RECORDS SUMMARY | 2025-03-02 12:30 | XMS_ITS | Encounter Summary ---
Author Organization [facility] Address [address] [place] [address] Phone Care Team Providers Care Boiler Coverer Name Role Phone Tennille Linton NP Primary Care Provider + Anni Quiñonez PA Unavailable [phone] Reason for Visit * Reason Comments Blood Draw Cancer * Consultation (Routine) - Authorized Specialty Diagnoses / Procedures Referred By Ranjit bauer Referred To Contact Diagnoses ULI VILLAR- book with Joe + tima PER ULI // 4 month follow-up with Silk (per Silk via e-mail on 04/01) Procedures ESTABLISHED PATIENT Unknown, Unknown, [address] [address] Referral ID Status Reason Start Date Expiration Date V isits Requested Visits Authorized [id number] Authorized 08/06/2024 06/23/2025 1000 1000 Encounter Details Date Type Department Care Team (Late st Contact Info) Description 03/02/2025 12:30 PM EDT Infusion Infusion Therapy Services [address], [address] [place] [address] Bartolome Sandy MD, MS [address] [place], [place] [address] [place] [address] [email or web address] Karlie Zuñiga RN [address] [place] [phone] [email or web address] Prostate cancer Social History Tobacco Use Types Packs/Day Years Used Date Smoking Tobacco: Never Passive Smoke Exposure: Never Smokeless Tobacco: Never Alcohol Use Standard Drinks/Week Comments Never 0 (1 standard drink = 0.6 oz pur e alcohol) Child or Family Care Answer Date Record ed Do you have problems with on e of the following making it difficult for you to work, study, or receive health care? No 03/11/2024 Education Answer Date Recorded Are you interested in more education? Not on kathryn e 08/30/2023 Are you concerned about learning? Not on file 08/30/2023 No 08/30/2023 No 08/30/2023 Food Answer Date Recorded Within the past 6 months we worried whether our food would run out before we got money to buy more. Never True 03/11/2024 Within the past 6 months the food we bought just didn't last and we didn't have enough money to get more. Never True Residential Stability Answer Date Recor ded What is your housing situation today? I have jovi sing 03/11/2024 How many times have you move d in the past 12 months? Zero (I did not move) 03/11/2024 Paying for Meds Answer Date Recorded Do you have trouble paying for medicines? No 03/11/2024 Paying Utility Bills Answer Date Record ed Do you have trouble paying your heating or elect ricity bill? No 03/11/2024 Transportation Answer Date Recorded Has the lack of transportati on kept you from medical appointments or from getting medications? No 03/11/2024 Digital Access Answer Date Recorded No 08/30/2023 No 08/30/2023 Reliable internet access at home? Not on file 08/30/2023 Device with a working camera? Not on file Intimate Partner Violence Answer Date R ecorded Are you denied basic needs s uch as food, clothing, or medical care? Deferred 03/18/2024 In the past 12 months have y ou been in a relationship with a person who hurts, threatens, or tries to control you? Deferred 03/18/2024 Are you denied basic needs s uch as food, clothing, or medical care? Deferred 03/18/2024 In the past 12 months have y ou been in a relationship with a person who hurts, threatens, or tries to control you? Deferred 03/18/2024 Sex and Gender Information Value Date Recorded Sex Assigned at Male 08/30/2023 3:06 PM EST Legal Sex Male 3:03 PM EST Gender Identity Male 08/30/2023 3:06 PM EST Sexual Orientation Straight 08/30/2023 3: 06 PM EST documented as of this encounter Last Filed Vital Signs Vital Sign Reading Time Taken Comments Blood Pressure 141/61 03/02/2025 12:51 PM EDT Pulse 80 03/02/2025 12:51 PM EDT Temperature 36.5 C (97.7 F) 03/02/2025 12:51 PM EDT Respiratory Rate 18 03/02/2025 12:51 PM EDT Oxygen Saturation 97% 03/02/2025 12:51 PM EDT Inhaled Oxygen Concentration - - Weight - - Height - - Body Mass Index - - documented in this encounter Plan of Treatment Upcoming Encounters Date Type Department Care Team (Late st Contact Info) Description 03/23/2025 1:30 PM EDT Office Visit [address] [address] Daisy Diaz MD, MPH [address] [place] [address] [email or web address] 04/01/2025 12:00 PM EDT [facility], [address], [address] [place] [address] Daisy Diaz MD, MPH [address] [place] [phone] [email or web address] 04/01/2025 12:00 PM EDT Office Visit [facility], [address], [address] [place] [address] Michelle Shearer MD [address] [place] [phone] [email or web address] 04/09/2025 11:30 AM EDT Office Visit [facility], [facility] [address] [facility], 11th [place] [address] Mary Ann Alford MD, FACS [address] [place] [address] [email or web address] documented as of this encounter Procedures Procedure Name Priority Date/Time Associated Diagnosis Comments PSA DIAGNOSTIC (MONITORING) Routine 03/02/2025 3:48 PM EDT Prostate cancer documented in this encounter Results * PSA diagnostic (monitoring) (03/02/2025 3:48 PM EDT) PSA Monitoring 0.41 0.00 - 4.00 ng/mL [facility] LIC# [id number] Blood 03/02/2025 3:48 PM EDT 03/02/2025 4:03 PM EDT us Bartolome Sandy MD, MS LAB BLOOD ORDERABLES Final Result [facility] LIC# [id number] [address] [place] [address] documented in this encounter Visit Diagnoses Diagnosis Prostate cancer Malignant neoplasm of prostate documented in this encounter Care Teams Boiler Coverer Relationship Specialty Start Date End Date Tennille Linton NP [address] [place] [address] PCP - General Nurse Practitioner 08/30/23 Anni Quiñonez PA [address] [place] [address] Physician Cut Off Machine Operator 08/30/23 shana myers Heart V[facility] Program [facility] Hot Roll Inspector Cardiology 03/12/24 documented as of this encounter Additional Source Comments The information contained in this document represents components of the legal health record. It is not the complete legal health record.[facility]
--- OUTSIDE RECORDS SUMMARY | 2025-03-02 13:00 | XMS_ITS | Encounter Summary ---
Author Organization [facility] Address [address] [place] [address] Phone Care Team Providers Care Testing Coordinator Name Role Phone Tennille Linton NP Primary Care Provider + Anni Quiñonez PA Unavailable [phone] Reason for Referral * MRI/CAT Scan - New Request Specialty Diagnoses / Procedures Referred By Ranjit t Referred To Contact Radiology Diagnoses Prostate cancer Procedures MRI Prostate Bartolome Sandy MD, MS [address] [address] Phone: tel: fax: mailto:[email or web address] Referral ID Status Reason Start Date Expiration Date V isits Requested Visits Authorized [id number] New Request 03/02/2025 1 1 Reason for Visit * Reason Comments Prostate Cancer * Consultation (Routine) - Authorized Specialty Diagnoses / Procedures Referred By Contisra t Referred To Contact Diagnoses ULI VILLAR- book with Joe + tima PER ULI // 4 month follow-up with Silk (per Silk via e-mail on 04/01) Procedures ESTABLISHED PATIENT Unknown, Unknown, [facility] [address] [address] Referral ID Status Reason Start Date Expiration Date V isits Requested Visits Authorized [id number] Authorized 08/06/2024 06/23/2025 1000 1000 Encounter Details Date Type Department Care Team (Latest Contact Info) Description 03/02/2025 1:00 PM EDT Office Visit [facility], [facility] [address] [place] [address], 11[address] [place] [address] Bartolome Sandy MD, MS [facility], [address] [place] [address] [email or web address] Prostate cancer (Primary Dx); Malignant neoplasm of prostate Social History Tobacco Use Types Packs/Day Years [...] PM EST documented as of this encounter Progress Notes * Bartolome Sandy MD, MS - 03/02/2025 1:00 PM EDT Images from the original note were not included. [facility]???[facility] DEPARTMENT OF UROLOGY [facility] and [address] [address] Affiliated Sites: [facility]???[facility]/[address] [address] UROLOGY CONSULTATION Name: Harvey Law : 1955 Primary Care Physician: Tennille Linton, VENITA Date: 03/02/2025 Chief Complaint Patient presents with Prostate Cancer History of Present Illness: Harvey Law is a 69 y.o. male seen in consultation to discuss the management of prostate cancer. Mr. 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 Since the surgery for SCC, he has had issues with urinary retention requiring catheterization as well as recurrent urinary tract infections resulting in significant systemic symptoms. Mr. Law was then referred to Urology for evaluation of the lower urinary tract symptoms (urinary retention requiring catheterization and urinary tract infections). In an effort to address the urinary retention, Mr. Law underwent a TURP on 12/03/24, and there was an incidental finding of prostate cancer, Andry score 3+4=7 (Grade Group 2); of note, internal review by [facility], Department of Pathology noted on Soldier pattern 3 prostate adenocarcinoma. He remains dependent on catheterization and has explored clean intermittent catheterization though the limitationis that it is extremity challenging to pass a catheter at this time. A recent serum PSA was noted to be 0.3 ng/mL in February 2025. Mr. Law presents today for a multidisciplinary consultation regarding the management of presumed localized prostate cancer in the setting immunosuppression. Review of Systems Constitutional: Negative. HENT: Negative. Eyes: Negative. Respiratory: Negative. Cardiovascular: Negative. Gastrointestinal: Negative. Endocrine: Negative. Genitourinary: Positive for problems with urination. Allergic/Immunologic: Negative. Neurological: Negative. Hematological: Negative. Psychiatric/Behavioral: Negative. Skin: Negative. Musculoskeletal: Positive for back pain. Patient Active Problem List Diagnosis Anemia Congestive heart failure Depression GERD (gastroesophageal reflux disease) History of kidney transplant HLD (hyperlipidemia) SCCA (squamous cell carcinoma) of skin Type 1 diabetes mellitus with diabetic neuropathy, with long-term current use of insulin Stroke Squamous cell carcinoma of ear, left Malignant neoplasm of prostate Past Medical History: Diagnosis Date Anemia Basal cell carcinoma of skin BK virus nephropathy RESOLVED Congestive heart failure 2018 prior to kidney transplant, RESOLVED Depression Diabetes mellitus with stage V chronic kidney disease s/p transplant RESOLVED 2017 GERD (gastroesophageal reflux disease) History of kidney transplant 08/07/2017 Baseline creatinine 1.7-1.9 HLD (hyperlipidemia) on a statin Pneumonia RESOLVED SCCA (squamous cell carcinoma) of skin > 12 SCC's since the transplant Stroke 08/11/201904/2018, 9 months post transplant Type 1 diabetes mellitus 1965 Type 1 diabetes mellitus with diabetic neuropathy, with long-term current use of insulin 08/11/2019 Since 1965, Diabetic nephropathy, sp transplant Neuropathy since 2009 Past Surgical History: Procedure Laterality Date APPENDECTOMY AURICULECTOMY - total Left 03/18/2024 Performed by Mary Ann Alford MD, FACS at [facility] OR DISSECTION MODIFIED NECK Left 03/18/2024 Performed by Mary Ann Alford MD, FACS at [facility] OR HERNIA REPAIR LARYNGOSCOPY DIRECT WITH BIOPSY N/A 03/18/2024 Performed by Mary Ann Alford MD, FACS at [facility] OR POSSIBLE FREE FLAP RECONSTRUCTION ANTEROLATERAL THIGH (MONITORING CONFIRMED FOR 03/18 AT 9:30AM) N/03/18/2024 Performed by Mary Ann Alford MD FACS at [facility] OR RESECTION LATERALTEMPORAL BONE Left 03/18/2024 Performed by Mary Ann Alford MD, FACS at [facility] OR TOTAL PAROTIDECTOMY Left 03/18/2024 Performed by Mary Ann Alford MD, FACS at [facility] OR TRANSPLANT KIDNEY LIVING DONOR 08/07/2017 Living unrelated donor kidney transplant done at [facility] Current Outpatient Medications Ordered in Epic Medication Sig acetaminophen (TYLENOL) 325 mg tablet Take 2 tablets (650 mg total) by mouth every 4 (four) hours as needed. blood sugar diagnostic Strp strips loratadine (CLARITIN) 10 mg tablet Take 10 mg by mouth daily. rosuvastatin (CRESTOR) 40 MG tablet Take 1 tablet by mouth daily. tacrolimus (PROGRAF) 1 MG capsule Take 1 mg by mouth 2 (two) times a day. tamsulosin (FLOMAX) 0.4 mg Cap Take 1 capsule (0.4 mg total) by mouth daily. Allergies Allergen Reactions Hydromorphone Other (See Comments) Hallucination; altered mental status, Paranoid for days Hydrocodone Bitartrate Nausea and/or Vomiting Grass Pollen Other (See Comments) Oxycodone Mental Status Change Family History Problem Relation Age of Onset Lymphoma Father Melanoma Father Prostate cancer Father Pancreatic cancer Father Skin cancer, squamous cell Father Skin cancer, basal cell Father Melanoma Sister Skin cancer, squamous cell Sister Skin cancer, basal cell Sister Breast cancer Sister Melanoma Sister Skin cancer, squamous cell Sister Skin cancer, basal cell Sister Melanoma Sister Skin cancer, squamous cell Sister Skin cancer, basal cell Sister Skin cancer, squamous cell Sister Skin cancer, basal cell Sister Social History Tobacco Use Smoking status: Never Passive exposure: Never Smokeless tobacco: Never Substance Use Topics Alcohol use: Never Physical Examination: Vital Signs: Temperature 36.5 ??C, heart rate 80, blood pressure 141/61. Constitutional: The patient is well developed, well nourished, alert and oriented, and appears his stated age lying down in a hospital bed. Review of Tests: PATHOLOGIC DIAGNOSIS: CONSULT SLIDES FROM [facility], [place], [place] CONSULT MATERIAL ([id number]; 12/03/24): A. PROSTATE CHIPS, TRANSURETHRAL RESECTION (TURP): PROSTATIC ADENOCARCINOMA, involving 20% of total tissue, see NOTE. Perineural invasion is present. A triple immunostain received from the referring institution and reviewed at [facility] demonstrates an absence of basal cells (p63 and 34BE12 negative) and the presence of AMACR in the area of carcinoma. Malignant neoplasm of prostate Assessment: Harvey Law is a 69 y.o. 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 He has a recent diagnosis of pT1b prostate cancer which is Soldier score 3+4=7 (or possibly Soldier score 3+3=6 based on internal review). He has significantly diminished performance status due to a multitude of infections over the past year. We spent this consultation discussing the management of prostate cancer. We discussed the role and rationale for active surveillance, surgical therapy, and radiation therapy. Given the low risk or favorable intermediate risk nature of this disease, I explained that active surveillance is generally an option and one that I would typically favor for patients with diminished performance status. However, the state of immunosuppression argues for intervention over active surveillance. We briefly discussed the option of surgery, which I feel remains technically feasible despite the presence of the renal allograft in the right pelvis. One potential advantage with surgery is to remove the prostate which could represent a site of obstruction. However, the prior TURP can also make a radical prostatectomy more technically challenging. 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 Complex urodynamics, if possible,may help clarify this issue. In addition, based on the description of recurrent urinary tract infection as well as a report of inflammatory changes associated with the [place] right kidney, I am concerned that the reservoir of infection may be in fact be the right kidney. Thus, optimizing lower urinary function may not be sufficient to address the issue of recurrent urinary tract infections. Of note, Mr. Law has an upcoming appointment with Infectious Disease to help address this issue. If the right kidney is determined to be a source of infection, then a right simple nephrectomy may be the most appropriate course ofaction. At this point, I feel that our assessment of prostate cancer is relatively limited and arguably insufficient to determine the best course of action. While the diagnosis of prostate cancer is established, it is not based on a systemic biopsy but rather a TURP which removed tissue primarily from the central aspect of the prostate which the majority of prostate cancer arises from the periphery. Additionally, the recent PSA of 0.3 ng/mL is reassuring, but there are no PSA with which to compare fromthe pre-TURP period. I favor a repeat PSA and MRI prostate Plan: Mr. Law will return after a repeat PSA and further evaluation with a MRI prostate to continue the discussion regarding the management of prostate cancer. Mr. Law expressed understanding and agreement with the above. Bartolome Sandy MD, MS emergency medcl emt, [employer] Coach of Urologic Oncology, Department of Urology, [facility] Surgical Oncologist, [facility] Office: Total time spent on 03/02/2025 for this visit in [id number]-gbrf and non wrkn-bk-skyv time reviewing, obtaining, and documenting clinical information, coordinating with the care team and other specialists, and counseling the patient: 60 minutes. documented in this encounter Miscellaneous Notes * Assessment & Plan Note - Bartolome Sandy MD, MS - 03/03/2025 7:41 AM EDT Associated Problem(s): Malignant neoplasm of prostate Assessment: Harvey Law is a 69 y.o. 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 He has a recent diagnosis of pT1b prostate cancer which is Andry score 3+4=7 (or possibly Andry score 3+3=6 based on internal review). He has significantly diminished performance status due to a multitude of infections over the past year. We spent this consultation discussing the management of prostate cancer. We discussed the role and rationale for active surveillance, surgical therapy, and radiation therapy. Given the low risk or favorable intermediate risk nature of this disease, I explained that active surveillance is generally an option and one that I would typically favor for patients with diminished performance status. However, the state of immunosuppression argues for intervention over active surveillance. We briefly discussed the option of surgery, which I feel remains technically feasible despite the presence of the renal allograft in the right pelvis. One potential advantage with surgery is to remove the prostate which could represent a site of obstruction. However, the prior TURP can also make a radical prostatectomy more technically challenging. 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 Complex urodynamics, if possible,may help clarify this issue. In addition, based on the description of recurrent urinary tract infection as well as a report of inflammatory changes associated with the [place] right kidney, I am concerned that the reservoir of infection may be in fact be the right kidney. Thus, optimizing lower urinary function may not be sufficient to address the issue of recurrent urinary tract infections. Of note, Mr. Law has an upcoming appointment with Infectious Disease to help address this issue. If the right kidney is determined to be a source of infection, then a right simple nephrectomy may be the most appropriate course ofaction. At this point, I feel that our assessment of prostate cancer is relatively limited and arguably insufficient to determine the best course of action. While the diagnosis of prostate cancer is established, it is not based on a systemic biopsy but rather a TURP which removed tissue primarily from the central aspect of the prostate which the majority of prostate cancer arises from the periphery. Additionally, the recent PSA of 0.3 ng/mL is reassuring, but there are no PSA with which to compare fromthe pre-TURP period. I favor a repeat PSA and MRI prostate Plan: Mr. Law will return after a repeat PSA and further evaluation with a MRI prostate to continue the discussion regarding the management of prostate cancer. documented in this encounter Plan of Treatment Upcoming Encounters Date Type Department Care Team (Late st Contact Info) Description 03/23/2025 1:30 PM EDT Office Visit [facility] [address] [address] Daisy Diaz MD, MPH [address] [place] [address] [address] [address] [email or web address] 04/01/2025 12:00 PM EDT Office Visit [facility], [facility] [address] [facility], [address] [place] [address] Daisy Diaz MD, MPH [address] [place] [address] [place] [phone] [email or web address] 04/01/2025 12:00 PM EDT Office Visit [facility], [address] [place] [address] Michelle Shearer MD [address] [place] [phone] [email or web address] 04/09/2025 11:30 AM EDT Office Visit [facility], [address], 11[address] [place] [address] Mary Ann Alford MD, FACS [address] [place] [phone] [email or web address] Scheduled Orders Name Type Priority Associated Diagnoses Orde r Schedule MRI Prostate Imaging Routine Prostate cancer Expected: 03/02/2025 (Approximate), Expires: 06/01/2025 documented as of this encounter Results * PSA diagnostic (monitoring) (03/02/2025 3:48 PM EDT) PSA Monitoring 0.41 0.00 - 4.00 ng/mL [facility] LIC# [id number] Blood 03/02/2025 3:48 PM EDT 03/02/2025 4:03 PM EDT Bartolome Sandy MD, MS LAB BLOOD ORDERABLES Final Result [facility] LIC# [id number] [address] [place] [address] documented in this encounter Visit Diagnoses Diagnosis Prostate cancer- Primary Malignant neoplasm of prostate Malignant neoplasm of prostate documented in this encounter Care Teams Testing Coordinator Relationship Specialty Start Date End Date Tennille Linton NP [address] [place] [address] PCP - General Nurse Practitioner 08/30/23 Anni Quiñonez PA [address] [place] [phone] [email or web address] Physician Water Ski Assembler 08/30/23 shana myers [facility] V[facility] Program [facility] Vibrator Operator Cardiology 03/12/24 documented as of this encounter Additional Source Comments The information contained in this document represents components of the legal health record. It is not the complete legal health record.[facility]
--- OUTSIDE RECORDS SUMMARY | 2025-03-02 14:00 | XMS_ITS | Encounter Summary ---
Author Organization [facility] Address [address] [place] [phone] Phone Care Team Providers Care Screw Machine Set Up Operator Name Role Phone Tennille Linton NP Primary Care Provider + Anni Quiñonez PA Unavailable [phone] Reason for Visit * Consultation (Routine) - Authorized Specialty Diagnoses / Procedures Referred By Ranjit bauer Referred To Contact Diagnoses LUI VILLAR- book with Diaz + tima PER ULI // 4 month follow-up with Silk (per Silk via e-mail on 04/01) Procedures ESTABLISHED PATIENT Unknown, Unknown, [facility] [place] [place] [address] Referral ID Status Reason Start Date Expiration Date V isits Requested Visits Authorized [id number] Authorized 08/06/2024 06/23/2025 1000 1000 Encounter Details Date Type Department Care Team (Latest Contact Info) Description 03/02/2025 2:00 PM EDT Office Visit [facility], [facility] [place] [address] [facility], [address] [place] [address] Amauri Rizo MD, PAULA [address] [place] [address], [facility]- [address] [address] [email or web address] Prostate cancer (Primary Dx) Social History Tobacco Use Types Packs/Day Years [...] as of this encounter Progress Notes * Amauri Rizo MD, PAULA - 03/02/2025 2:00 PM EDT Radiation Oncology Consultation Note Name: Harvey Law Date of : 1955 [facility] Date: 03/02/2025 Diagnosis: Cancer Staging Summary for Harvey Law Performance Status: ECOG performance status: 0- Fully active, able to carry on all pre-disease performance without restriction Identification: Harvey Law is a 69 y.o. 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 seen now in consultation for recommendations regarding further therapy. History of Present Illness: Harvey Law is a 69 y.o. 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 01/15/24: Skin biopsies at [facility]. Left posterior ear: well differentiated SCC, tumor extends to base and peripheral margins Left superior shoulder: well differentiated SCC, tumor focally present at inked deep margin Right abdominal wall: minimally invasive well differentiated SCC, completely excised 02/11/24: [facility] dermatology visit with Dr. Chaim Charlton. Recommended Mohs for SCC of left posterior ear. On exam lesion is 1.2 x 1 cm. 02/25/24: Mohs with Dr. Guadalupe for well diff SCC of left posterior ear. First stage revealed well-moddiff SCC extending through muscle with multifocal large caliber PNI and LVI with positive margins at deep and peripheral margins. Unable to clear tumor given close proximity to branch of external carotid. Plan for further surgical resection with Dr. Alford. Post op Mohs wound size 5 x 3.5 cm. PATHOLOGIC DIAGNOSIS: A. SKIN, POSTERO-INFERIOR LEFT EAR (EXTENDING TO NECK AND SCALP), TUMOR DEBULK: Residual SQUAMOUS CELL CARCINOMA, moderately to well differentiated, invasive (see NOTE). Cicatrix. NOTE: Perineural invasion is identified (up to 0.1 mm nerve diameter). No definitive lymphovascular invasion identified. 02/25/24: CT neck Residual tumor measures approximately 3.3 cm in longest axis, extends approximately 14 mm deep fromthe resection margin into the superficial parotid gland, and appears to involve the external auditory canal cartilage. MRI Neck Left postauricular sulcus 3.6 cm surgical defect with packing material. Deep extension of the lesion better visualized on CT. 02/28/24: Consult with H&N surgery Dr. Alford. Discussed surgery with parotidectomy, neck dissection, partial vs total auriculectomy, lateral temporal bone resection, reconstruction followed by ART. Also discussed neoadjuvant immunotherapy. 03/09/24: L shoulder Mohs with Dr. Guadalupe. Negative margins after one stage 03/11/24: PET/CT: 1. FDG uptake along the posterior left parotid extending along the inferior left external auditory canal consistent with known squamous carcinoma. 2. No FDG avid metastatic disease elsewhere. 3. Asymmetric uptake along the right palatine tonsil likely inflammatory can be correlatedwith clinical exam. 03/11/24: CT neck with postresection changes of the superficial left parotid and soft tissues inferior to left auricle. Similar residual tumor along resection margin extending into superficial parotidgland. No temporal bone abnormality 03/12/24: [facility] medical oncology consult with Dr. Shearer 03/17/24: [facility] radiation oncology consult with Dr. Ugarte 03/18/24: Surgery scheduled with Dr. Alford Prior RT 05/2024 - 07/2024: had a [facility] T2b SCC of the left posterior parotid s/p Mohs and ENT resection and ART (completed 24 of 30 planned radiation treatments due to multiple hospitalizations for Norovirus. 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 01/15/2024: Skin biopsies at [facility]. Left posterior ear: well differentiated SCC, tumor extends to base and peripheral margins Left superior shoulder: well differentiated SCC, tumor focally presentat inked deep margin. Right abdominal wall: minimally invasive well differentiated SCC, completely excised 02/11/2024: [facility] dermatology visit with Dr. Chaim Charlton. Recommended Mohs for SCC of left posterior ear. On exam lesion is 1.2 x 1 cm. 02/25/2024: Mohs with Dr. Guadalupe for well diff SCC of left posterior ear. First stage revealed well-mod diff SCC extending through muscle with multifocal large caliber PNI and LVI with positive margins at deep and peripheral margins. Unable to clear tumor given close proximity to branch of externalcarotid. Plan for further surgical resection with Dr. Alford. Post op Mohs wound size 5 x 3.5 cm. Pathologic Diagnosis: A. Skin, Postero-inferior Left Ear (Extending to Neck and Scalp), Tumor Debulk: residual squamous cell carcinoma, moderately to well differentiated, invasive cicatrix. Note: Perineural invasion is identified (up to 0.1 mm nerve diameter). No definitive lymphovascularinvasion identified. 02/25/2024: CT neck: Residual tumor measures approximately 3.3 cm in longest axis, extends approximately 14 mm deep from the resection margin into the superficial parotid gland, and appears to involve the external auditory canal cartilage. MRI Neck: Left postauricular sulcus 3.6 cm surgical defect with packing material. Deep extension ofthe lesion better visualized on CT. 02/28/2024: Consult with H&N surgery Dr. Alford. Discussed surgery with parotidectomy, neck dissection, partial vs total auriculectomy, lateral temporal bone resection, reconstruction followed byART. Also discussed neoadjuvant immunotherapy. 03/09/2024: L shoulder Mohs with Dr. Guadalupe. Negative margins after one stage 03/11/2024: PET/CT: 1. FDG uptake along the posterior left parotid extending along the inferior left external auditory canal consistent with known squamous carcinoma. 2. No FDG avid metastatic disease elsewhere. 3. Asymmetric uptake along the right palatine tonsil likely inflammatory can be correlated with clinical exam. 03/11/2024: CT neck with postresection changes of the superficial left parotid and soft tissues inferior to left auricle. Similar residual tumor along resection margin extending into superficial parotid gland. No temporal bone abnormality 03/12/2024: [facility] medical oncology consult with Dr. Shearer 03/17/2024: [facility] radiation oncology consult with Dr. Ugarte 03/18/2024: Surgery scheduled with Dr. Alford 05/2024 - 07/2024: had a [facility] T2b SCC of the left posterior parotid s/p Mohs and ENT resection and ART (completed 24 of 30 planned radiation treatments due to multiple hospitalizations for Norovirus. (Note: Radiation related notes not found in Epic) 06/18/2024 MRI Brain W/O Contrast ([facility]) Findings: brain and extra-axial spaces: The ventricles and sulci are globally prominent reflecting volume loss. There are punctate foci of restricted diffusion in the bilateral frontal lobes and the right anterior parietal lobe. These areas have variable signal intensity on the DWI sequence, and a focus of abnormality in the left frontal lobe as well as a focus in the right frontal lobe have partial pseudonormalization of the ADC value. There is a 1 cm focus of diffusion abnormality in the left frontal periventricular white matter which appears to have a rim of peripheral restricted diffusion. These findings are present in the background of moderately extensive confluent T2 hyperintensity throughout the supratentorial white matter and helen. There are multiple chronic lacunar infarcts in the basal ganglia, thalami, helen, and in the left cerebellar hemisphere. There is no hemorrhage, midline shift, or mass effect. There is no extra-axial collection. Flow voids are preserved in the dominant intracranial vessels. Extracranial Soft Tissues: There have been lens replacements bilaterally. There is scattered paranasal sinus mucosal thickening. There is postsurgical change to the left facial soft tissues and alongthe left mastoid with fat packing material, as better seen on CT. Bones: Marrow signal is preserved. Impression: 1 cm focus of diffusion abnormality in the left frontal periventricular white matter has a rim of peripheral restricted diffusion. This appearance is not entirely typical for an infarct. Possibilities also include metastasis in context of history of malignancy as well as abscess in the appropriate clinical setting. Recommend postcontrast imaging for more complete assessment. There are other foci of scattered punctate diffusion abnormality in both frontal lobes and the right parietal lobe which have variable signal and probably reflect acute to subacute embolic infarcts of varying age. Multiple chronic lacunar infarcts in the basal ganglia, thalami, helen, left cerebellar hemisphere. Moderately extensive nonspecific white matter signal changes which most likely reflect chronic small vessel disease. This has increased compared to 2020. 11/09/2024: Patient underwent TURP due to Urinary retention. 12/03/2024 Bipolar transurethral resection of prostate ([facility]) Findings: Short partially obstructing Prostate. Pathological Diagnosis ([facility] Review): A. Prostate Chips, Transurethral Resection (TURP): Prostatic Adenocarcinoma, involving 20% of totaltissue. Perineural invasion is present. A triple immunostain received from the referring institution and reviewed at [facility] demonstrates an absence of basal cells (p63 and [id number] negative) and the presen ce of AMACR in the area of carcinoma. Note: The tumor is virtually entirely Max pattern 3; however, not all slides were received for review. We will request the additional slide, and the Max score will be reported in an addendum. Addendum: Prostate Chips, Transurethral Resection (TURP): Prostatic Adenocarcinoma, Max score 3+3=6 (Grade Group 1), involving 20% of total tissue. Perineural invasion is present. Note: For the additional block ( 1-1 ), only recut material was available for review. In my opinion, a definitive component of Max pattern 4 is not present. Additional Cancer: SCC of Skin Left Shoulder Excision. SCC of Right Back SCC of right shoulder SCC of Right Chest SCC of left Neck SCC of Left Flank SCC of Skin Upper Back SCC of Left Back SCC of Left Ring Finger SCC of Abdominal wall left SCC of Right Forearm SCC of Right arm SCC of Skin, mid upper back Excision SCC of Skin left lower calf SCC Skin left Posterior Ear SCC of Left Ear and Left Superficial Parotid SCC of Skin, Submandibular [place] of Right Neck, Tumor Debulk SCC of Skin, Right Prescapular Back SCC of Skin, Submandibular [place] Of Right Neck, Tumor Debulk Review of Systems: Patient Reported Outcomes Questionnaire Assignment: Prostate Review of Systems - Oncology - Still has a catheter in place. Radiation Risk Factors: Electronic Devices: None Prior radiation to same or adjacent site: No Past History: Patient Active Problem List Diagnosis Anemia Congestive heart failure Depression GERD (gastroesophageal reflux disease) History of kidney transplant HLD (hyperlipidemia) SCCA (squamous cell carcinoma) of skin Type 1 diabetes mellitus with diabetic neuropathy, with long-term current use of insulin Stroke Squamous cell carcinoma of ear, left Past Medical History: Diagnosis Date Anemia Basal cell carcinoma of skin BK virus nephropathy RESOLVED Congestive heart failure 2017 prior to kidney transplant, RESOLVED Depression Diabetes [...] by Mary Ann Alford MD, FACS at [facility] OR DISSECTION MODIFIED NECK Left 03/18/2024 Performed by Mary Ann Alford MD, FACS at [facility] OR HERNIA REPAIR LARYNGOSCOPY DIRECT WITH BIOPSY N/A 03/18/2024 Performed by Mary Ann Alford MD, FACS at [facility] OR POSSIBLE FREE FLAP RECONSTRUCTION ANTEROLATERAL THIGH (MONITORING CONFIRMED FOR 03/18 AT 9:30AM) N/03/18/2024 Performed by Mary Ann Alford MD, FACS at [facility] OR RESECTION LATERALTEMPORAL BONE Left 03/18/2024 Performed by Mary Ann Alford MD, FACS at [facility] OR TOTAL PAROTIDECTOMY Left 03/18/2024 Performed by Mary Ann Alford MD, FACS at [facility] OR TRANSPLANT KIDNEY LIVING DONOR 08/07/2017 Living unrelated donor kidney transplant done at [facility] Medications: Current Outpatient Medications Ordered in Epic Medication Sig acetaminophen (TYLENOL) 325 mg tablet Take 2 tablets (650 mg total) by mouth every 4 (four) hours as needed. aspirin 325 MG tablet Take 325 mg by mouth daily. blood sugar diagnostic Strp strips doxazosin (CARDURA XL) 8 MG 24 hr tablet Take 8 mg by mouth daily with breakfast. loratadine (CLARITIN) 10 mg tablet Take 10 mg by mouth daily. LORazepam (ATIVAN) 1 MG tablet Take 1 mg by mouth daily as needed. NOVOLOG FLEXPEN U-100 INSULIN 100 unit/mL (3 mL) flexpen Inject 6 Units under the skin daily beforebreakfast. Taking on a sliding scale. rosuvastatin (CRESTOR) 40 MG tablet Take 1 tablet by mouth daily. senna (SENOKOT) 8.6 mg tablet Take 1 tablet by mouth daily. sertraline (ZOLOFT) 50 MG tablet Take 50 mg by mouth daily. tacrolimus (PROGRAF) 1 MG capsule Take 1 mg by mouth 2 (two) times a day. tamsulosin (FLOMAX) 0.4 mg Cap Take 1 capsule (0.4 mg total) by mouth daily. traMADoL (ULTRAM) 50 mg tablet Take 50 mg by mouth every 6 (six) hours as needed for pain (specificlocation in comments). (Patient not taking: Reported on 05/30/2024) traZODone (DESYREL) 50 MG tablet Take 0.25-0.5 tablets (12.5-25 mg total) by mouth nightly at bedtime as needed. (Patient not taking: Reported on 05/30/2024) TRESIBA FLEXTOUCH U-100 injection pen Inject 26 Units under the skin every morning. Allergies: Allergen Reactions Hydromorphone Other (See Comments) Hallucination; altered mental status, Paranoid for days Hydrocodone Bitartrate Nausea and/or Vomiting Grass Pollen Other (See Comments) Oxycodone Mental Status Change Social History Drug Use: Substance and Sexual Activity Drug Use Not on file Alcohol Use: Substance and Sexual Activity Alcohol Use Never Tobacco Use: Tobacco Use Smoking Status Never Passive exposure: Never Smokeless Tobacco Never Social Narrative: Social History Narrative Not on file Accompanied by his sister and son today. Family History Problem Relation Age of Onset [...] cell Sister Skin cancer, basal cell Sister Exam: Most recent vitals: Physical Exam - In a stretcher due to significant back pain when he sits up too long. Has indwelling catheter for months. Labs/Imaging: I have personally reviewed prior records Assessment and Plan of Care: Harvey Law is a 69 y.o. 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 He continues to have an indwelling catheter despite the TURP and so I do worry about the impact of radiation on his future ability to urinate. He has met with Dr. Sandy who will do another PSA and an MRI and see if he has a target for anotherbiopsy. At this point, unless something new is found, I would favor active surveillance, and if he needs treatment then I would favor surgery, and the patient says that Dr. Sandy told him that surgery would be feasible as an option. Total time spent on 03/02/2025 for this visit in [id number] and non snzp-[id number] time reviewing, obtaining, and documenting clinical information, coordinating with the care team and other specialists, and counseling the patient: 45 minutes. Amauri Rizo MD Patient Care Team Relationship Specialty Department Tennille Linton NP PCP - General Nurse Practitioner Comment: Anni Maya PA Physician Alcohol Law Enforcement Agent Comment: shana reid Director Heart Cardiology documented in this encounter Plan of Treatment Upcoming Encounters Date Type Department Care Team (Late st Contact Info) Description 03/23/2025 1:30 PM EDT Office Visit [address] [address] Daisy Diaz MD, MPH [address] [place] [phone] [email or web address] 04/01/2025 12:00 PM EDT [facility] [address], [address] [place] [phone] Daisy Diaz MD, MPH [address] [place] [phone] [email or web address] 04/01/2025 12:00 PM EDT Office Visit [facility], [facility] [address], [address] [place] [phone] Michelle Shearer MD [address] [place] [phone] [email or web address] 04/09/2025 11:30 AM EDT Office Visit [facility], [facility] [place] [address] [facility] [place] [address] Mary Ann Alford MD, [address] [address] [email or web address] documented as of this encounter Visit Diagnoses Diagnosis Prostate cancer- Primary Malignant neoplasm of prostate documented in this encounter Care Teams Screw Machine Set Up Operator Relationship Specialty Start Date End Date Tennille Linton NP [address] [place] [phone] PCP - General Nurse Practitioner 08/30/23 Anni Quiñonez PA [address] [place] [phone] [email or web address] Enforcement Agent 08/30/23 shana myers [facility] Director Heart Cardiology 03/12/24 documented as of this encounter Additional Source Comments The information contained in this document represents components of the legal health record. It is not the complete legal health record.[facility]
--- OUTSIDE RECORDS SUMMARY | 2025-03-02 15:45 | XMS_ITS | Encounter Summary ---
Author Organization [facility] Address [address] [place] [phone] Phone Care Team Providers Care Paper Final Inspector Name Role Phone Tennille Linton NP Primary Care Provider + Anni Quiñonez PA Unavailable [phone] Reason for Visit * Consultation (Routine) - Authorized Specialty Diagnoses / Procedures Referred By Ranjit bauer Referred To Contact Diagnoses ULI VILLAR- book with Diaz + silk PER ULI // 4 month follow-up with Silk (per Silk via e-mail on 04/01) Procedures ESTABLISHED PATIENT Unknown, Unknown, [facility] [address] [address] Referral ID Status Reason Start Date Expiration Date V isits Requested Visits Authorized [id number] Authorized 08/06/2024 06/23/2025 1000 [id number] Encounter Details Date Type Department Care Team (Late st Contact Info) Description 03/02/2025 3:45 PM EDT [facility] [place] [address] [place] [address], 11th [place] [address] Raleigh Arellano MD [address] [place] [phone] [email or web address] Malignant neoplasm of prostate (Primary Dx) Social History Tobacco Use Types [...] as of this encounter Progress Notes * Raleigh Arellano MD - 03/02/2025 3:45 PM EDT Images from the original note were not included. Genitourinary Oncology [address] [place] [address] [id number] ? Mr. Law is a 69 y.o. who is presenting for consultation regarding management of his prostate cancer. Oncology History Overview Note 68M with ESRD [...] and EAC cartilage. 01/15/24: Skin biopsies at [facility]. Left posterior ear: well differentiated SCC, tumor extends to base and peripheral margins Left superior shoulder: well differentiated SCC, tumor focally present at inked deep margin Right abdominal wall: minimally invasive well differentiated SCC, completely excised 02/11/24: [facility] dermatology visit with Dr. Chaim Charlton. [...] superficial parotidgland. No temporal bone abnormality 03/12/24: [facility] medical oncology consult with Dr. Shearer 03/17/24: [facility] radiation oncology consult with Dr. Ugarte 03/18/24: Surgery scheduled with Dr. Alford Malignant neoplasm of prostate 03/02/2025 Initial Diagnosis Malignant neoplasm of prostate Mr. 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 Past medical history:I have reviewed and confirmed Mr. Law's past medical history in the charton 03/02/2025. Medications: I reviewed Mr. Law's medication list in the chart on 03/02/2025 Allergies: I reviewed allergy section in Mr. Law's chart on 03/02/2025 Social History: Mr. Izquierdo social history was reviewed and updated in his social documentation on 03/02/2025. A/P: We recommend a prostate MRI and biopsy to further establish [place] 3+3 as the extent of Mr. Izquierdo prostate cancer. We spent the bulk of our visit discussing the management of low-risk prostate cancer. Low risk prostate cancer appears highly curable. Any standard definitive local therapy is very likely to be successful from a cancer standpoint. However, definitive treatment is associated with risk of long-term side effects and a central question is whether treatment at this time is needed at all.It is very possible that his disease would cause no complication for well over a decade, and deferral of treatment would be harmless. Active surveillance is therefore an option in this case. Active surveillance entails close monitoring of a biopsy-proven prostate cancer, proceeding with definitive local treatment if and when the disease appears more aggressive than initially anticipated.While data from several series suggest that active surveillance can effectively avoid or significantly forestall definitive local therapy (Junie, Curr Urol Rep, 2015), data are limited regarding its safety beyond 10-15 years of follow-up. This is an important consideration in this case given the long life expectancy of the patient. In one of the most well-annotated active surveillance cohorts, from the [facility], 993 patients with Andry score of 3+3 and PSA <10 ng/mL have been followed with serial PSAs every 3-4 months, routine digital rectal exams and serial prostate biopsies (of note, almost 20% turned out to have Andry 3+4 disease). Repeat biopsies were performed within one year, and current practice is to then perform them every 2 to 4 years thereafter. A PSA doubling time of less than three years is considered a reasonable trigger for repeat biopsy (Junie et al, J Clin Oncol, 2015). Patients are referred for treatment due to significant change in PSA kinetics or histologic upgrade on repeat prostate biopsy or development of a new or worsening prostate nodule. At 10-year follow-up, 38% of patients underwent definitive local treatment based on these criteria. At approximately 10 years, there were 15 prostate cancer-specific deaths among the 993 patients. A total of 28 (2.8%) developed metastatic prostate cancer during this timeframe. Of note, among the 28who developed metastases, 12 were initially diagnosed with Andry 7, not Andry 6 disease. It is clear that [place] 3+3 prostate cancer has extraordinarily little metastatic potential (Jamey, J Urol, 2015). However, series demonstrating this were based on outcomes from radical prostatectomy, in which the entire gland was assessed. Biopsy is only a sampling and a diagnosis of [place] 3+3 disease at biopsy does not guarantee solely indolent disease. It is always possible that more aggressive prostate cancer is lurking undetected. These cases account, in part, for the 38% active surveillance subject requiring treatment within 10 years. Several variables available at the time of biopsy and initial diagnosis have been assessed for their ability to predict disease aggressiveness. Certain clinical factors were associated with risk of higher grade disease despite [place] 3+3 on biopsy. In one series these included a palpable prostate nodule and PSA increase greater than 2 ng/ml in the year prior to diagnosis (Harsh, J Urol, 2015). Other variables that trended with increased risk were older age, PSA level, number of biopsy cores positive and percentage of the involved cores. Age has also been examined as a predictor of outcome in active surveillance. Active surveillance series do not suggest that patients <60 years old are poor candidates for active surveillance (Junie, J Urol ,2015). Low-risk disease discovered by biopsy in younger patients does not necessarily behave more aggressively. Prostate MRI is increasingly used to measure the full extent and aggressiveness of newly diagnosed prostate cancer. The role for MRI in the initial work-up of low risk patients is not fully established, but recent data suggest a meaningful role. Most major academic centers currently recommend usinga multi-parametric imaging and 3 Irene (T) magnet, though clinically informative data have been generated using 1.5 T. A standardized scoring system, PI-RADS, has been devised to characterize prostate lesions. Focal lesions are scored 1 to 5 based on predicted aggressiveness (http://www.acr.org/Quality-Safety/Resources/PIRADS/). Studies to date are limited but suggest a potential usefulness for the MRI (Glenn, J Urol, 2012), as benign appearing MRIs provide reassurance that active surveillance is a preferred management option. While MRIs are not yet considered an adequate substitute for serial biopsy as part of active surveillance, we do often use MRI to help determine the timing of repeat biopsy and, if a suspicious area is visualized, to guide the biopsy. Again, the disease is in all likelihood highly curable, if the patient prefers that route. Standardcurative approaches are radical prostatectomy, external beam RT, and brachytherapy. Each has advantages and disadvantages. The cure rates associated with each treatment modality appear equivalent. The concerning long- term side effects associated with definitive local treatment are urinary complications, including incontinence, and erectile dysfunction. Patient-reported side effects and impressions of treatment are well described in Sydni et al, N Engl J Med 2008. In that study, long-term changes in urinary and sexual function appear less dramatic among radiation patients compared with surgery patients. Also, RT is not associated with the risks that accompany any surgical procedure (general anesthesia, blood loss, recovery, etc.). However, it isimportant to note that the radiation cohort is a slightly older population and their impressions regarding changes in function may differ from the younger surgery cohort. In the ProtecT trial (N Engl J Med, 2016) - in which hundreds of subjects were randomized to surgery, radiation or monitoring (NOT active surveillance) - long- term changes in urinary and sexual function appeared less dramatic among radiation patients compared with surgery patients. Also, radiation is not associated with the risks that accompany any surgical procedure (general anesthesia, blood loss, recovery, etc.). Surgery has certain advantages. It allows us to understand fully the pathology of an individual's disease. If pathology upon surgery is concerning, salvage radiation is possible. Post-radiation radical prostatectomy, on the other hand, is not straightforward and associated with profound long-term side effects. Further, we do not know the multi-decade side effects of modern radiation doses to the prostate. Radiation is associated with increased risk of secondary cancers. For these reasons, we lean towards surgery for our younger patients and radiation for our older patients seeking definitive local therapy. There are alternative therapies available for localized prostate treatment. These include cyberknife, cryotherapy and high-intensity focused ultrasound (HIFU). These methods can be applied to the entire gland or to portions in an attempt to minimize side effects. However, it is unclear whether these options are equivalent to surgery or standard radiation therapy. No studies have compared these approaches qzcl-xt-fzpn, and time is needed to determine retrospectively whether they provide adequatelong-term disease control. Given co-morbidities, we recommend maintaining a high threshold for definitive, invasive treatment. Total time spent on 03/02/2025 for this visit in avae-ml-pudb and non jtpa-da-aago time reviewing, obtaining, and documenting clinical information, coordinating with the care team and other specialists, and counseling the patient: 60 minutes. Mr. Law expressed understanding and is aware that he should contact us as questions or concerns arise. Raleigh Arellano MD [facility] [address] [place], [place] [address] documented in this encounter Plan of Treatment Upcoming Encounters Date Type Department Care Team (Late st Contact Info) Description 03/23/2025 1:30 PM EDT Office Visit [facility] [address] [facility] [address] [place] [address] Daisy Diaz MD, MPH [address] [place] [phone] [email or web address] 04/01/2025 12:00 PM EDT Office Visit [facility], [address], [address] [place] [address] Daisy Diaz MD, MPH [address] [place] [address] [place] [phone] [email or web address] 04/01/2025 12:00 PM EDT Office Visit [facility], [address], [address] [place] [address] Michelle Shearer MD [address] [place] [phone] [email or web address] 04/09/2025 11:30 AM EDT Office Visit [facility], [facility] [place] [address] [place] [address], 11th [place] [address] Mary Ann Alford MD, [address] [address] [email or web address] documented as of this encounter Visit Diagnoses Diagnosis Malignant neoplasm of prostate- Primary documented in this encounter Care Teams Paper Final Inspector Relationship Specialty Start Date End Date Tennille Linton NP [address] [place] [address] PCP - General Nurse Practitioner 08/30/23 Anni Quiñonez PA [address] [place] [phone] [email or web address] 08/30/23 shana myers [facility] 03/12/24 documented as of this encounter Additional Source Comments The information contained in this document represents components of the legal health record. It is not the complete legal health record.[facility]
[2025-03-04 11:14] LABS: MANUAL DIFF FLAG NO
[2025-03-04 11:27] LABS: Hematocrit 31.4 % (42.0-52.0); Hemoglobin 9.9 g/dl (14.0-18.0); Imm Gran Abs Auto 0.02 X10*3/uL (0.00-0.03); Imm Gran Pct Auto 0.2 % (0.0-0.4); Lymphocytes Absolute Auto 1.1 X10*3/uL (1.2-4.9); Mean Corpuscular HGB Conc 31.5 g/dl (31.0-36.0); Mean Corpuscular Hemoglobin 23.3 pg (27.0-33.0); Mean Corpuscular Volume 74.1 fL (80.0-98.0); NRBC Abs Auto 0.000 X10*3/uL (0.0-0.012); NRBC Pct Auto 0.0 /100WBC (0.0-0.2); Platelet Count 335 X10*3/uL (160-400); Red Blood Count 4.24 X10*6/uL (4.60-5.80); White Blood Count 8.1 X10*3/uL (4.8-10.8)
[2025-03-04 11:39] LABS: Hemoglobin A1C 141.2251 umol/L; Total Hemoglobin (HGBA1C) 2609.0476 umol/L
[2025-03-04 12:08] LABS: Alanine Aminotransferase < 6 U/L (0-40); Anion Gap 12 (12-20); Aspartate Amino Transferase 16 U/L (5-37); Blood Urea Nitrogen 30 mg/dL (9-16); Calcium 9.7 mg/dL (8.4-10.2); Carbon Dioxide 26 mmol/L (22-29); Chloride 106 mmol/L (96-108); Estimated Glomerular Filt Rate 58; Iron 15 mcg/dL (45-160); Percent Iron Saturation 7 % (15-50); Potassium 4.3 mmol/L (3.3-5.1); Sodium 140 mmol/L (135-145); Total Iron Binding Capacity 201 mcg/dL (228-428); Unsaturated Iron Binding 186 ug/dL
[2025-03-04 12:15] LABS: Parathyroid Hormone Intact 39.3 pg/mL (8.7-77.1)
[2025-03-04 12:31] LABS: Ferritin 79 ng/mL (20-250)
[2025-03-04 12:57] LABS: Appearance Urine Clear; Glucose Urine UA Negative (Negative); PH 7.0 (5.0-9.0); Specific Gravity - Urine 1.010 (1.005-1.025); UMIC TRIGGER UACC YES
[2025-03-04 13:02] LABS: Microalbum/Creatinine Ratio Ur 53.1 ug/mg cr (<30)
[2025-03-04 13:28] LABS: UACC Culture Trigger YES
--- OUTSIDE RECORDS SUMMARY | 2025-03-04 15:27 | XMS_ITS | Encounter Summary ---
Author Organization [facility] Address [address] [address] Phone Care Team Providers Care Rangelands Conservation Laborer Name Role Phone Tennille Linton NP Primary Care Provider + Encounter Details Date Type Department Care Team (Late st Contact Info) Description 04/22/2024 Documentation Only [facility] [place], [address] [facility] [place] [address] [place] [address] [place] [phone] Social History Tobacco Use Types Packs/Day [...] Care Team (Late st Contact Info) Description 03/09/2025 9:15 AM EDT Office Visit [facility] [place] [address] [place] [address] Andrey Phan MD [address] [place] [address] documented as of this encounter Visit Diagnoses Not on filedocumented in this encounter Care Teams Rangelands Conservation Laborer Relationship Specialty Start Date End Date Tennille Linton NP [address] [place] [phone] PCP - General Nurse Practitioner 08/07/23 documented as of this encounter
--- OUTSIDE RECORDS SUMMARY | 2025-03-04 15:27 | XMS_ITS | Continuity of Care Document ---
Author Organization [facility] Address [address] [facility] [address] [place], [place] Phone [phone] Care Team Providers Care Engagement Lead Name Role Phone Lashell Aguilar MD Care [...] criticality GI & lethargy 11/05/2014 Inactive Allergies No Known Drug Allergies 0 11/05/2014 Medications Active Medications SIG Qnty Indications Order ing Provider Date Jnobzma090Jvhz/ML Solution 6-10 unit subcutaneous three times a day 3vials Tessa Paredes M.D. 03/19/2017 Rosuvastatin Tleacgw2az Tablets 1/2 By Mouth Every Day 14tabs E10.8 Tessa Paredes M.D. 10/15/2016 [facility] Syr/NDL 29G 0.5ML U/F Use 1 Syringe Under The Skin Three Times Daily 90units E10.8 Tessa Paredes M.D. 12/03/2014 Freestyle Lite TestStrips 1 Strip To Meter 8 Times A Day 750units E10.8 Tessa Paredes M.D. 11/27/2014 N25.9 Pcrpqn906Barj/ML Solution 12 unit subcutaneous twice a day 1units Tessa Paredes M.D. 11/05/2014 Freestyle LiteStrips (Blood Sugar Use 1 Strip Every Two Hours While Awake Check Blood Sugar 6-8 Timesa Day 750units E10.8 Tessa Paredes M.D. 09/29/2014 Yxpinnqybx84ly Tablets TK 1 T PO qd Unkn own Nzhurrhjuc73.5mg Tablets TK 1 T PO bid U nknown Amlodipine Ucepoorb23pu Tablets 1 by mouth every day Jeff Lobo MD Zygfqzdxh5dx Tablets 1 by mouth every day 30tabs Tessa Paredes M.D. Hydralazine APV12qv Tablets Jeff Lobo MD Doxazosin Fvmfyapt9lw Tablets TK 1 T PO QHS Unknown Eoefkt987mr Tablets 1 tab by mouth daily Unknown Citrate Unknown History Medications Pravastatin Mymkdv06tp Tablets 1 by mouth every day 30tabs E10.8 Tessa Paredes M.D. 07/06/2016 - 10/15/2016 Levothyroxine Fjausy80eql Tablets 1/2 by mouth every day=12.5/d 45tabs E03.9 Tessa Paredes M.D. 04/05/2016 - 07/06/2016 Ultiiwe169Ixrf/ML Solution inject 6-10 units subcutaneously 3 times a day 30ml Tessa Paredes M.D. 11/05/2014 - 03/19/2017 Sertraline HMH54lp Tablets TK 1 T PO qd Unknown - 11/05/2014 Oxycodone HCL5mg Tablets Unknown - 11/05/2014 Gbbaoa136Nemu/ML Solution Jeff Lobo MD - 11/05/2014 Penicillin V Sewslivdj258kg Tablets TK 1 T PO Q 6 H Tat Unknown - 11/05/2014 Hydrocodone-Acetamin ophen5-325mg Tablets TK 1 T PO Q 4 To 6 H prn P For 7 Days Unknown - 11/05/2014 Tamsulosin HCL0.4mg Capsules TK One C PO bid For 30 Days Unknown - 11/05/2014 Xucqicep91wq Tablets TK 2 TS PO D For 30 Days Unknown - 11/05/2014 Ciprofloxacin HUW498et Tablets TK 1 T PO Once D Unknown - 11/05/2014 Hydrocodone-Acetamin rtmah88-156zi Tablets TK 1 T PO Q 6 H prn P Unknown - 11/05/2014 Ondansetron HCL8mg Tablets TK 1 T PO tid Unknown - 11/05/2014 Ujvwbkop647me Tablets TK 1 T PO D For 30 Days Unknown - 11/05/2014 Losartan Nzuycymbb124ka Tablets TK 1 T PO qd Unknown - 11/05/2014 Trazodone ALB75jx Tablets TK 1 T PO qd Unknown - 11/05/2014 Atorvastatin Xwckcog03ls Tablets TK 1 T PO Once A Day hs Unknown - 11/05/2014
--- OUTSIDE RECORDS SUMMARY | 2025-03-04 15:27 | XMS_ITS | Encounter Summary ---
Author Organization [facility] Address [address] [address] Phone Care Team Providers Care Dancer Or Choreographer Name Role Phone Ebony Lintonher Sloane NATHAN Primary Care Provider + Encounter Details Date Type Department Care Team (Late st Contact Info) Description 12/09/2024 Documentation Only [facility] [place], [address] [facility] [place] [address] [place] [address] [place] [phone] Social History Tobacco Use Types Packs/Day [...] Visit [facility] [place] [address] [facility] [place] [address] Andrey Phan MD [address] [facility] [address] [place] [address] documented as of this encounter Visit Diagnoses Not on filedocumented in this encounter Care Teams Dancer Or Choreographer Relationship Specialty Start Date End Date Tennille Linton NP [address] [place] [phone] PCP - General Nurse Practitioner 08/07/23 documented as of this encounter
--- OUTSIDE RECORDS SUMMARY | 2025-03-04 15:27 | XMS_ITS | Encounter Summary ---
Author Organization [facility] Address [address] [address] Phone Care Team Providers Care Lamp Developer Name Role Phone Ebony Lintonher Sloane NATHAN Primary Care Provider + Encounter Details Date Type Department Care Team (Late st Contact Info) Description 10/05/2024 Documentation Only [facility] [place], [address] [facility] [place] [address] [place] [address] [place] [phone] Social History Tobacco Use Types Packs/Day [...] Visit [facility] [place] [address] [facility] [place] [address] Andrey Phan MD [address] [facility] [place] [address] documented as of this encounter Visit Diagnoses Not on filedocumented in this encounter Care Teams Lamp Developer Relationship Specialty Start Date End Date Tennille Linton NP [address] [place] [phone] PCP - General Nurse Practitioner 08/07/23 documented as of this encounter
--- OUTSIDE RECORDS SUMMARY | 2025-03-04 15:27 | XMS_ITS | Encounter Summary ---
Author Organization [facility] Address [address] [place] [address] Care Team Providers Care Literacy Coach Name Role Phone Elder, Michelle Alonso MD Primary Care Provider + Encounter Details Date Type Department Care Team (Late st Contact Info) Description 12/15/2024 Lab Requisition [facility] - Main Lab [address] [facility] [employer] [place] [address] Harshad Thornton, PA [address] [place], [place] [phone] Urinary tract infection, site not specified Social [...] Pseudomonas aeruginosa(A) YENNIFER 12/18/2024 10:25 AM EDT [facility] Comment: This is an edited [...] Susceptible Pseudomonas aeruginosa Cefepime DISK DIFFUSION Susceptible [facility] MICROBIOLOGY - [facility] KEIRY LEACH Final Result [facility] [address] [place] [address], documented in this encounter Visit Diagnoses Diagnosis Urinary tract infection, site not specified documented in this encounter Additional Health Concerns Infection Onset Date Last Indicated Resolved Time MDRO (other) 12/15/2024 12/15/2024 documented as of this encounter Care Teams Literacy Coach Relationship Specialty Start Date End Date Michelle Rucker MD [address] [place] [phone] PCP - General Family Medicine 05/06/24 documented as of this encounter
--- OUTSIDE RECORDS SUMMARY | 2025-03-04 15:27 | XMS_ITS | Encounter Summary ---
Author Organization [facility] Address [address] [place] [address] Encounters * CPT with Medical [facility] at [facility] on 2025-02-09 { reasonForRequest : Patient woke up w/ a sharp pain at the bottom of his rib pain right side. , patientReports : Vague abdominal pain greater than 24 hours ,"denies :[ Sharp focal or diffuse abdominal pain , Vomiting blood/coffee ground material , Bloating, jaundice new onset with pain , Nausea and vomiting greater than 2 hours with abdominal pain , Tearing pain that radiates to back , Food Impaction , Constipation , Diarrhea no blood in stool , Nausea with or without vomiting , Inability to tolerate foods, fluids or daily medications ], chiefComplaints : Chest Pain , pmh : Organ Transplant, Hypertension, Diabetes Mellitus Type 2, Hyperlipidemia, Stroke, Cancer , allergies : Dilaudid, Oxycodone, Percocet , otherAllergies :null, painAssessment : Level 8 out of 10 , visitOutcome : , additionalComments : 69 y.o male complains of Chest Pain\n\nR chest pain below rib cage\nSore to touch, when moves it is painful - rates 8/10\Ramón rest on back much less pain \nMost pain when laying on L side\n(- ) rebound tenderness\nNo swelling/bruising/redness\nDenies fever, shortness of breath, palpitations\nKidney transplant - continues on antirejection meds\nBedbound, denies recent fall/injury\nNot on anticoagulation\nUses chemo cream on face for melanoma, no active treatment for prostate cancer\nHas not taken anyOTC medicines to help pain \nVoiding adequately, adequate POs\nRequesting instED visit\n\nI provided information on the mobile health provider response time and advised the patient and/or caregiver to monitor reported signs and symptoms. I discussed the warning signs of when to seek emergency care."} [facility] responds to the listed address for a 69 yom w/ a c/c of RUQ pain since this morning. Upon arrival, sister opens the door for [facility] and pt is found conscious and alert and laying semi-fowlers in the hospital bed in his living room. He is pleasant and generally well-appearing. He makes eye contact and says hello. Pt is not in acute distress, no ashen or yanes color are noted, no stridoror sonorous respirations are present, no facial droop or one-sided weakness are observed, and he isnot bleeding anywhere. Pt is endorsing RUQ abdominal pain since waking up this morning. He describes the pain as sharp and it starts around the back under the ribs and comes forward through the flankto the anterior side. He has never had this pain before and says it feels like a gas pain that I can't pass . Pt offers no other complaints of pain, illness, or discomfort. Sister helps provide hx and says his last bowel movement was yesterday, and he has had watery diarrhea for 2 and a half days. He is still able to take food and fluids PO, however, his thirst and appetitedrop off later in the day and he has a G-tube in place to provide liquid nutrition and hydration when he doesn't feel like eating. No fevers/chills are reported and pt denies n/v/d. No cardiac-originating cp, GARNICA, AMS, weakness, syncope, or seizure-like activity are reported. Pt has a kidney graft in the RLQ w/ a Rosario catheter in place and has suffered multiple UTIs since September of this year and has been on so many abx. Sister says none of his usual UTI s/s have been present and his Rosario was replaced in the ED [id number] ago. She says he has had really good urinary output and no black or bloody stools or urine are reported. Recent testing for MRSA infection. [facility] obtains vital signs and pt is assessed. Head is atraumatic. 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 Sclera are clear, pupils are PERRL, and extraocular movements are intact. Smile is equal, speech is normal, and pt is able to answer all questions appropriately. Chest is atraumatic and lung sounds are clear to auscultation bilaterally. Abdomen is tender in the RUQ under the rib cage, around the side and to the back. RUQ pain increases w/ palpation and deep inspiration. G-tube insertion site is clean and bandaging is clear of blood or purulent drainage. LRQ is mildly tender over pt's graft site, no bruising, swelling, redness, streaking, or heat are noted. Bowel sounds are present in all four quadrants. CMS is intact and no peripheral edema is noted. Urine in catheter tubing is yellow w/ some particulate matter noted in the collection bag. UA is performed w/ draw from tubing proximal to the Y. UA shows markers consistent w/ UTI. BMP is obtained w/ IV access in the L hand. 23ga butterfly and aseptic technique is used and it is removed and pressure bandage is applied w/ 2x2 and tape. [facility] contacts [facility] and discusses the above. [facility] [place] transport to the ED for abdominal imaging tor/o cholecystitis. Pt and sister are amendable. Pt is transported to [facility] by [facility]. [facility] is clear. Report completed by EDIL Alan [id number]. ORAL_MEDICATION, EKG, POC_FLU_STREP, COVID_TEST Written by Medical [facility] on 2025-02-09
--- OUTSIDE RECORDS SUMMARY | 2025-03-04 15:27 | XMS_ITS | Encounter Summary ---
Author Organization [facility] Address [address] [address] Phone Care Team Providers Care Business Administrator Name Role Phone Tennille Linton NP Primary Care Provider + Encounter Details Date Type Department Care Team (Late st Contact Info) Description 10/29/2024 Documentation Only [facility] [place], [address] [place] [address] [place] [address] [place] [phone] Social History Tobacco Use Types Packs/Day [...] Visit [facility] [address] [address] Andrey Phan MD [address] [place] [address] documented as of this encounter Visit Diagnoses Not on filedocumented in this encounter Care Teams Business Administrator Relationship Specialty Start Date End Date Tennille Linton NP [address] [place] [phone] PCP - General Nurse Practitioner 08/07/23 documented as of this encounter
--- OUTSIDE RECORDS SUMMARY | 2025-03-04 15:27 | XMS_ITS | Encounter Summary ---
Author Organization [facility] [place], Address [address] [address] Phone Care Team Providers Care Umbrella Cutter Name Role Phone Royer, Tennille Sloane NATHAN Primary Care Provider + Reason for Visit * Reason Comments Med Refill Encounter Details Date Type Department Care Team (Late st Contact Info) Description 09/10/2022 Refill [facility] [address] [place] [address] Andrey Phan MD [address] [place] [address] [place] [address] Social History Tobacco Use Types [...] [facility] [address] [place] [address] Andrey Phan MD [address] [place] [address] [place] [address] documented as of this encounter Visit Diagnoses Not on filedocumented in this encounter Care Teams Umbrella Cutter Relationship Specialty Start Date End Date Tennille Linton NP [address] [place] [phone] PCP - General Nurse Practitioner 08/07/23 documented as of this encounter
--- OUTSIDE RECORDS SUMMARY | 2025-03-04 15:27 | XMS_ITS | Encounter Summary ---
Author Organization [facility] Address [address] [address] Phone Care Team Providers Care Semiconductor Assembler Name Role Phone Tennille Linton NP Primary Care Provider + Encounter Details Date Type Department Care Team (Late st Contact Info) Description 05/26/2024 Documentation Only [facility] [place], [address] [place] [address] [place] [address] [place] [phone] Social History Tobacco Use Types Packs/Day [...] Visit [facility] [place] [address] [place] [address] Andrey Phan MD [address] [facility] [place] [address] documented as of this encounter Visit Diagnoses Not on filedocumented in this encounter Care Teams Semiconductor Assembler Relationship Specialty Start Date End Date Tennille Linton NP [address] [place] [phone] PCP - General Nurse Practitioner 08/07/23 documented as of this encounter
--- OUTSIDE RECORDS SUMMARY | 2025-03-04 15:27 | XMS_ITS | Encounter Summary ---
Author Organization [facility] Address [address] [address] Phone Care Team Providers Care Tutorial Laboratory Supervisor Name Role Phone Tennille Linton NP Primary Care Provider + Encounter Details Date Type Department Care Team (Late st Contact Info) Description 06/04/2024 Documentation Only [facility] [place], [address] [place] [address] Annika Mcclure [address] [phone] Social History Tobacco Use Types Packs/Day [...] Visit [facility] [address] [place] [address] Andrey Phan MD [address] [place] [address] documented as of this encounter Visit Diagnoses Not on filedocumented in this encounter Care Teams Tutorial Laboratory Supervisor Relationship Specialty Start Date End Date Tennille Linton NP [address] [place] [phone] PCP - General Nurse Practitioner 08/07/23 documented as of this encounter
--- OUTSIDE RECORDS SUMMARY | 2025-03-04 15:27 | XMS_ITS | Encounter Summary ---
Author Organization [facility] Address [address] [address] Phone Care Team Providers Care Crushing Mill Operator Name Role Phone Ebony Lintonher Sloane NATHAN Primary Care Provider + Encounter Details Date Type Department Care Team (Late st Contact Info) Description 10/06/2024 Documentation Only [facility] [place], [address] [place] [address] [place] [address] [place] [phone] Social History Tobacco Use Types Packs/Day [...] Visit [facility] [place] [address] [place] [address] Andrey Phan MD [address] [place] [address] documented as of this encounter Visit Diagnoses Not on filedocumented in this encounter Care Teams Crushing Mill Operator Relationship Specialty Start Date End Date Tennille Linton NP [address] [place] [phone] PCP - General Nurse Practitioner 08/07/23 documented as of this encounter
--- OUTSIDE RECORDS SUMMARY | 2025-03-04 15:27 | XMS_ITS | Clinical Summary ---
Author Organization [facility], Address [address] [place] [address] Phone Care Team Providers Care Automobile Mechanic Assistant Name Role Phone Tennille Linton NP Primary Care Provider + Allergies Active Allergy Reactions Criticality Noted Date Comments Hydromorphone Other (see comments) 08/12/2019 Oxycodone-Acetaminophen 06/29/2019 Phenytoin 06/29/2019 Medications aspirin (ST MAGNO) 81 MG EC tablet Take 1 tablet by mouth 1 (one) time each day Active glucose blood test strip 1 strip by Other route 11/23/19 18 Active Continuous Blood Gluc Plastics Bench Mechanic (DEXCOM G6 MILLINER HELPER) device UTD TO MONITOR BS 08/24/19 20 Active Continuous Blood Gluc Sensor (DEXCOM G6 SENSOR) [facility] UTD TO MONITOR BS CHANGE EVERY 10 DAYS 10/01/19 20 Active Continuous Blood Gluc Transmit (DEXCOM G6 TRANSMITTER) [facility] [place] TO MONITOR BS. CHANGE EVERY 90 DAYS 09/30/19 20 Active BD PEN NEEDLE BASSAM U/F 32G X 4 MM [facility] USE TO INJECT INSULIN ONCE DAILY 08/19/19 20 Active B-D ULTRAFINE III SHORT PEN 31G X 8 MM [facility] 09/08/19 20 Active Insulin Aspart FlexPen 100 UNIT/ML solution pen-injector Inject 7 Units under the skin in the morning and 7 Units at noon and 7 Units in the evening. Inject before meals. 10/07/19 25 Active Additional Information Patient taking differently: 4 UnitsSubcutaneous 3 times daily before meals, Morning, Noon, Evening, Reported on 11/17/2024 tamsulosin (FLOMAX) 0.4 MG 24 hr capsule Take 1 capsule (0.4 mg total) by mouth 1 (one) time each day 10/07/19 25 2025 Active Insulin Degludec FlexTouch 100 UNIT/ML solution pen-injector Inject 28 Units under the skin 1 (one) time each day 10/07/19 Active Additional Information Patient taking differently: 24 UnitsSubcutaneous Daily, Reported on 11/17/2024 sertraline (Zoloft) 20 MG/ML concentrated solution Take 5 mL (100 mg total) by mouth 1 (one) time each day 10/07/19 25 2025 Active Cholecalciferol (Vitamin D3) 10 MCG (400 UNIT) capsule Take 400 Units by mouth 1 (one) time each day 90 capsule 11 11/18/19 25 2025 Active pantoprazole (PROTONIX) 20 MG EC tablet Take 1 tablet (20 mg total) by mouth 1 (one) time each day in the evening 90 tablet 3 11/18/19 25 2025 Active tacrolimus (PROGRAF) 1 MG capsule Take 2 mg in the morning and 1 mg in the evening 90 capsule 11 12/02/19 25 Active LORazepam (Ativan) 0.5 MG tablet Take 1 tablet (0.5 mg total) by mouth every night 30 tablet 01/19/20 25 Active rosuvastatin (CRESTOR) 40 MG tablet Take 1 tablet (40 mg total) by mouth 1 (one) time each day 90 tablet 3 02/25/20 25 Active sertraline (ZOLOFT) 50 MG tablet Take 1 tablet (50 mg total) by mouth in the morning and 1 tablet (50 mg total) in the evening. 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); Hypervolemia; History of renal transplant; Poor glycemic control; Other iron deficiency anemia; Primary hyperparathyroidism (HCC); Albuminuria, not otherwise specified; BK virus nephropathy 02/24/2025 Orders Only [facility] [address] [place] [address] Annika Mcclure MA 01/18/2025 Refill [facility] [address] [place] [address] Namita Marinelli 01/13/2025 Refill [facility] [address] [place] [address] Zeinab Walker 01/11/2025 Telephone [facility] [address] [place] [address] Annika Mcclure MA 01/09/2025 Documentation Only [facility] [place] [address] [place] [phone] Gagandeep Sims MD 01/08/2025 Documentation Only [facility] [address] [place] [address] Annika Mcclure MA 01/08/2025 Telephone [facility] [address] [place] [address] Yaneth Rudolph FNP-C 01/08/2025 Refill [facility] [address] [place] [address] Danica Price RN 01/07/2025 1:15 PM EDT Clinical Support [facility] [address] [place] [address] Yaneth Rudolph [facility] Stage 3b chronic kidney disease (HCC) (Primary Dx); History of immunosuppressive therapy; Kidney replaced by transplant 01/07/2025 Office Communication [facility] [address] [place] [address] Zeinab Walker 01/07/2025 Orders Only [facility] [address] [place] [address] Zeinab Walker BK virus nephropathy (Primary Dx); 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); History of immunosuppressive therapy; Kidney replaced by transplant 01/01/2025 Telephone [facility] [address] [place] [address] Danica Price, CARLOS 01/01/2025 Telephone [facility] [address] [place] [address] Annika Mcclure MA 12/31/2024 Documentation Only [facility] [address] [place] [phone] Annika Mcclure MA 12/31/2024 Documentation Only [facility] [address] [place] [phone] Annika Mcclure MA 12/31/2024 Documentation Only [facility] [address] [place] [phone] Annika Mcclure MA 12/28/2024 Orders Only [facility] [address] [place] [address] Annika Mcclure MA Stage 3b chronic kidney disease (HCC) (Primary Dx); History of immunosuppressive therapy; Kidney replaced by transplant; 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); Hypervolemia; History of renal transplant; Poor glycemic control; Other iron deficiency anemia; Other specified hypoparathyroidism (HCC); Albuminuria, not otherwise specified; BK virus nephropathy 12/14/2024 Refill [facility] [address] [place] [address] Namita Marinelli 12/09/2024 Documentation Only [facility] [address] [place] [phone] Annika Mcclure MA from Last 3 Months Immunizations Immunization Administration Dates Next Due H1N1 Inj 07/26/2009 Hepatitis B 01/11/2015,08/04/2014,07/07/2014 Influenza Split High Dose Pr eservative Free IM 05/02/2016,05/16/2015 Influenza, Quadrivalent, Pre servative Free 03/17/2020,04/03/2019 Influenza, Unspecified 04/07/2021,2017,02/03/2017,04/19,03/18/2012 Pfizer SARS-COV-2 03/02/2021,08/12/2020,07/12/19 21 Pneumococcal Conjugate 13-Valent 09/22/2015,01/2015,02/05/2015 Pneumococcal Polysaccharide 01/16/2017, 0 Tdap 02/03/2017 Family [...] Sign Reading Time Taken Comments Blood Pressure 110/68 01/10/2025 5:40 PM EDT Pulse 82 11/17/2024 10:31 AM EDT Temperature - - Respiratory Rate [...] Visit [facility] [address] [place] [phone] Andrey Phan MD [address] [place] [address] [place] [address] Health Maintenance Due Date Last Done Comments Diabetes: Ophthalmology Exam 07/09/2019 Diabetes: Pedal Pulse Checked 07/09/2019 Diabetes: Sensory Foot Exam 07/09/2019 Diabetes: Visual Foot Exam 07/09/2019 Colonoscopy (Post-Transplant Patient) 02/03/2020 Pneumococcal Vaccine: 50+ Years (4 of 4 - PCV20 or PCV21) 01/16/2022 01/16/2017, 09/22/2015, 03/01/2015, Additional history exists Influenza Vaccine (#1) 2025 1, 03/17/2020, 04/03/2019, Additional history exists Diabetes: Hemoglobin A1C 04/06/2025 025, 12/01/2024, 10/02/2024, Additional history exists Hepatitis B Vaccine Aged Out 01/11/2015, 08/04/2014, 07/07/2014 No longer eligible based on patient's age to complete this topic Pneumococcal Vaccine: Peds (0 to 5 Years) and At-Risk Patients (6 to 49 Years) Discontinued 01/16/2017, 09/22/2015, 03/01/2015, Additional history exists Procedures Procedure Name Priority Date/Time Associated Diagnosis Comments BK VIRUS, DNA, QUANTITATIVE Routine 01/04/2025 9:25 AM EDT Stage 3b chronic kidney disease (HCC) History of immunosuppressive therapy 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) Hypervolemia History of renal transplant Poor glycemic control Other iron deficiency anemia Other specified hypoparathyroidism (HCC) Albuminuria, not otherwise specified BK virus nephropathy BK VIRUS, DNA, URINE, QUANTITATIVE Routine 01/04/2025 9:25 AM EDT Stage 3b chronic kidney disease (HCC) History of immunosuppressive therapy 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) Hypervolemia History of renal transplant Poor glycemic control Other iron deficiency anemia Other specified hypoparathyroidism (HCC) Albuminuria, not otherwise specified BK virus nephropathy URINALYSIS, COMPLETE Routine 01/04/2025 9:25 AM EDT Stage 3b chronic kidney disease (HCC) History of immunosuppressive therapy 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) Hypervolemia History of renal transplant Poor glycemic control Other iron deficiency anemia Other specified hypoparathyroidism (HCC) Albuminuria, not otherwise specified BK virus nephropathy URINE ALBUMIN / CREATININE RATIO Routine 01/04/2025 9:25 AM EDT Stage 3b chronic kidney disease (HCC) History of immunosuppressive therapy 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) Hypervolemia History of renal transplant Poor glycemic control Other iron deficiency anemia Other specified hypoparathyroidism (HCC) Albuminuria, not otherwise specified BK virus nephropathy PTH, INTACT Routine 01/04/2025 9:25 AM EDT Stage 3b chronic kidney disease (HCC) History of immunosuppressive therapy 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) Hypervolemia History of renal transplant Poor glycemic control Other iron deficiency anemia Other specified hypoparathyroidism (HCC) Albuminuria, not otherwise specified BK virus nephropathy IRON PANEL (FE, TIBC, TSAT) Routine 01/04/2025 9:25 AM EDT Stage 3b chronic kidney disease (HCC) History of immunosuppressive therapy 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) Hypervolemia History of renal transplant Poor glycemic control Other iron deficiency anemia Other specified hypoparathyroidism (HCC) Albuminuria, not otherwise specified BK virus nephropathy FERRITIN Routine 01/04/2025 9:25 AM EDT Stage 3b chronic kidney disease (HCC) History of immunosuppressive therapy 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) Hypervolemia History of renal transplant Poor glycemic control Other iron deficiency anemia Other specified hypoparathyroidism (HCC) Albuminuria, not otherwise specified BK virus nephropathy CREATINE KINASE Routine 01/04/2025 9:25 AM EDT Stage 3b chronic kidney disease (HCC) History of immunosuppressive therapy 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) Hypervolemia History of renal transplant Poor glycemic control Other iron deficiency anemia Other specified hypoparathyroidism (HCC) Albuminuria, not otherwise specified BK virus nephropathy ALT Routine 01/04/2025 9:25 AM EDT Stage 3b chronic kidney disease (HCC) History of immunosuppressive therapy 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) Hypervolemia History of renal transplant Poor glycemic control Other iron deficiency anemia Other specified hypoparathyroidism (HCC) Albuminuria, not otherwise specified BK virus nephropathy AST Routine 01/04/2025 9:25 AM EDT Stage 3b chronic kidney disease (HCC) History of immunosuppressive therapy 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) Hypervolemia History of renal transplant Poor glycemic control Other iron deficiency anemia Other specified hypoparathyroidism (HCC) Albuminuria, not otherwise specified BK virus nephropathy HEMOGLOBIN A1C Routine 01/04/2025 9:25 AM EDT Stage 3b chronic kidney disease (HCC) History of immunosuppressive therapy 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) Hypervolemia History of renal transplant Poor glycemic control Other iron deficiency anemia Other specified hypoparathyroidism (HCC) Albuminuria, not otherwise specified BK virus nephropathy CBC AND DIFFERENTIAL Routine 01/04/2025 9:25 AM EDT Stage 3b chronic kidney disease (HCC) History of immunosuppressive therapy 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) Hypervolemia History of renal transplant Poor glycemic control Other iron deficiency anemia Other specified hypoparathyroidism (HCC) Albuminuria, not otherwise specified BK virus nephropathy RENAL FUNCTION PANEL Routine 01/04/2025 9:25 AM EDT Stage 3b chronic kidney disease (HCC) History of immunosuppressive therapy 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) Hypervolemia History of renal transplant Poor glycemic control Other iron deficiency anemia Other specified hypoparathyroidism (HCC) Albuminuria, not otherwise specified BK virus nephropathy TACROLIMUS, HIGHLY SENSITIVE, LC/MS/MS Routine 01/04/2025 9:25 AM EDT Stage 3b chronic kidney disease (HCC) History of immunosuppressive therapy 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) Hypervolemia History of renal transplant Poor glycemic control Other iron deficiency anemia Other specified hypoparathyroidism (HCC) Albuminuria, not otherwise specified BK virus nephropathy from Last 3 Months Results * Tacrolimus, Highly Sensitive, LC/MS/MS (01/04/2025 9:25 AM EDT) us Andrey Phan MD LAB BLOOD ORDERABLES Final Result [facility] * Urinalysis, Complete w/reflex to Culture (01/04/2025 9:25 AM EDT) Urine Urine specimen obtained by clean catch procedure / Unknown Result [facility] Andrey Phan MD LAB URINE ORDERABLES Final Result Performing Organization Address [facility] de Phone Number [facility] * Iron Panel (Fe, TIBC, TSAT) (01/04/2025 9:25 AM EDT) Blood Venous blood / Unknown Result [facility] Andrey Phan MD LAB BLOOD ORDERABLES Final Result Performing Organization Address [facility] Phone Number [facility] * Urine Albumin / Creatinine Ratio (01/04/2025 9:25 AM EDT) Urine Urine specimen obtained by clean catch procedure / Unknown Result [facility] Andrey Phan MD LAB URINE ORDERABLES Final Result Performing Organization Address [facility] de Phone Number [facility] * BK Virus Urine, Quant PCR (01/04/2025 9:25 AM EDT) Urine Urine specimen obtained by clean catch procedure / Unknown Result [facility] Andrey Phan MD LAB URINE ORDERABLES Final Result Performing Organization Address [facility] de Phone Number [facility] * BK Virus DNA, Quant PCR (01/04/2025 9:25 AM EDT) Blood Venous blood / Unknown Result [facility] Andrey Phan MD LAB BLOOD ORDERABLES Final Result Performing Organization Address [facility] de Phone Number [facility] * CBC and Differential (01/04/2025 9:25 AM EDT) Blood Venous blood / Unknown Result [facility] Andrey Phan MD LAB BLOOD ORDERABLES Final Result Performing Organization Address [facility] de Phone Number [facility] * ALT (01/04/2025 9:25 AM EDT) Blood Venous blood / Unknown Andrey Phan MD LAB BLOOD ORDERABLES Final Result Performing Organization Address [facility] de Phone Number [facility] * AST (01/04/2025 9:25 AM EDT) Blood Venous blood / Unknown Result [facility] Andrey Phan MD LAB BLOOD ORDERABLES Final Result Performing Organization Address [facility] de Phone Number [facility] * PTH, Intact (01/04/2025 9:25 AM EDT) Blood Venous blood / Unknown Andrey Phan MD LAB BLOOD ORDERABLES Final Result Performing Organization Address [facility] de Phone Number [facility] * Hemoglobin A1c (01/04/2025 9:25 AM EDT) Blood Venous blood / Unknown Result [facility] Andrey Phan MD LAB BLOOD ORDERABLES Final Result Performing Organization Address [facility] de Phone Number [facility] * Ferritin (01/04/2025 9:25 AM EDT) Blood Venous blood / Unknown Andrey Phan MD LAB BLOOD ORDERABLES Final Result Performing Organization Address [facility] de Phone Number [facility] * CK (01/04/2025 9:25 AM EDT) Blood Venous blood / Unknown us Andrey Phan MD LAB BLOOD ORDERABLES Final Result [facility] * Renal Function Panel (01/04/2025 9:25 AM EDT) Blood Venous blood / Unknown Andrey Phan MD LAB BLOOD ORDERABLES Final Result [facility] from Last 3 Months Insurance [facility] Dual SNP ([id number]) [place] [phone] Advance Directives Healthcare Agents on File Name Relationship Healthcare [facility] Communication Nataliia Devan Sister Health Care Agent Care Teams Automobile Mechanic Assistant Relationship Specialty Start Date End Date [place] [phone] PCP - General Nurse Practitioner 08/07/23
--- OUTSIDE RECORDS SUMMARY | 2025-03-04 15:27 | XMS_ITS | Encounter Summary ---
Author Organization [facility] Address [address] [address] Phone Care Team Providers Care Patrol Captain Name Role Phone Tennille Linton Sloane NATHAN Primary Care Provider + Reason for Visit * Reason Comments Med Refill Encounter Details Date Type Department Care Team (Late st Contact Info) Description 06/08/2022 Refill [facility] [place], [address] [place] [address] Andrey Phan MD [address] [place] [address] [place] [address] Social History Tobacco Use Types [...] Visit [facility] [place] [address] [place] [address] Andrey Phan MD [address] [place] [address] documented as of this encounter Visit Diagnoses Not on filedocumented in this encounter Care Teams Patrol Captain Relationship Specialty Start Date End Date Tennille Linton NP [address] [place] [phone] PCP - General Nurse Practitioner 08/07/23 documented as of this encounter
--- OUTSIDE RECORDS SUMMARY | 2025-03-04 15:27 | XMS_ITS | Encounter Summary ---
Author Organization [facility] [place], Address [address] [place] [address] Phone Care Team Providers Care Drop Hammer Set Up Operator Name Role Phone Tennille Linton Sloane NATHAN Primary Care Provider + Reason for Visit * Reason Comments Med Refill Encounter Details Date Type Department Care Team (Late st Contact Info) Description 04/24/2023 Refill [facility] [place], [address] [place] [address] Denise Isbell PA [address] [place] [address] Social History Tobacco Use Types Packs/Day Years [...] Visit [facility] [place] [address] [place] [phone] Andrey Phan MD [address] [place] [address] documented as of this encounter Visit Diagnoses Not on filedocumented in this encounter Care Teams Drop Hammer Set Up Operator Relationship Specialty Start Date End Date Tennille Linton NP [address] [place] [phone] PCP - General Nurse Practitioner 08/07/23 documented as of this encounter
--- OUTSIDE RECORDS SUMMARY | 2025-03-04 15:27 | XMS_ITS | Encounter Summary ---
Author Organization [facility] Address [address] [place] [address] [place] [phone] Phone Care Team Providers Care Claim Investigator Name Role Phone Tennille Linton NP Primary Care Provider + Anni Quiñonez PA Unavailable [phone] Encounter Details Date Type Department Care Team (Late st Contact Info) Description 02/28/2024 Procedure Pass [facility] [address] [place] [address] Social History Tobacco Use Types Packs/Day Years Used Date Smoking Tobacco: Never Passive Smoke Exposure: Never Smokeless Tobacco: Never Alcohol Use Standard Drinks/Week Comments Never 0 (1 standard drink = 0.6 oz pur e alcohol) Education Answer Date Recorded Are you interested in more education? Not on kathryn e 08/30/2023 Are you concerned about learning? Not on file 08/30/2023 No 08/30/2023 No 08/30/2023 Digital Access Answer Date Recorded No 08/30/2023 No 08/30/2023 Reliable internet access at home? Not on file 08/30/2023 Device with a working camera? Not on file Sex and Gender Information Value Date Recorded Sex Assigned at Male 08/30/2023 3:06 PM EST Legal Sex Male 3:03 PM EST Gender Identity Male 08/30/2023 3:06 PM EST Sexual Orientation Straight 08/30/2023 3: 06 PM EST documented as of this encounter Plan of Treatment Upcoming Encounters Date Type Department Care Team (Late st Contact Info) Description 03/23/2025 1:30 PM EDT Office Visit [facility] [address], [place] [address] Daisy Diaz MD, MPH [address] [place] [phone] [email or web address] 04/01/2025 12:00 PM EDT Office Visit [facility], [facility] [address] [place] [address] Daisy Diaz MD, MPH [address] [place] [phone] [email or web address] 04/01/2025 12:00 PM EDT Office Visit [facility], [address] [place] [address] Michelle Shearer MD [address] [place] [phone] [email or web address] 04/09/2025 11:30 AM EDT Office Visit [facility], [address] [place] [address] Mary Ann Alford MD, [address] [address] [email or web address] documented as of this encounter Visit Diagnoses Not on filedocumented in this encounter Care Teams Claim Investigator Relationship Specialty Start Date End Date Tennille Linton NP [address] [place] [phone] PCP - General Nurse Practitioner 3/8/24 Anni Quiñonez PA [address] [place] [address] [email or web address] Director 08/30/23 shana myers [facility] 03/12/24 documented as of this encounter Additional Source Comments The information contained in this document represents components of the legal health record. It is not the complete legal health record.[facility]
--- OUTSIDE RECORDS SUMMARY | 2025-03-04 15:27 | XMS_ITS | Encounter Summary ---
Author Organization [facility] Address [address] [address] Phone Care Team Providers Care Cash On Delivery Clerk Name Role Phone Tennille Linton NP Primary Care Provider + Encounter Details Date Type Department Care Team (Late st Contact Info) Description 04/21/2024 Documentation Only [facility] [place], [address] [place] [address] [place] [address] [place] [phone] Social History Tobacco Use Types Packs/Day [...] Visit [facility] [place] [address] [place] [address] Andrey Phan MD [address] [facility] [place] [address] documented as of this encounter Visit Diagnoses Not on filedocumented in this encounter Care Teams Cash On Delivery Clerk Relationship Specialty Start Date End Date Tennille Linton NP [address] [place] [phone] PCP - General Nurse Practitioner 08/07/23 documented as of this encounter
--- OUTSIDE RECORDS SUMMARY | 2025-03-04 15:27 | XMS_ITS | Encounter Summary ---
Author Organization [facility] Address [address] [address] Phone Care Team Providers Care Barrel Roller Operator Name Role Phone Tennille Linton NP Primary Care Provider + Encounter Details Date Type Department Care Team (Late st Contact Info) Description 06/29/2022 Documentation Only [facility] [place], [address] [facility] [place] [address] [place] [address] [place] [phone] Social History Tobacco Use Types Packs/Day [...] Visit [facility] [place] [address] [facility] [place] [address] Andrey Phan MD [address] [facility] [place] [address] documented as of this encounter Visit Diagnoses Not on filedocumented in this encounter Care Teams Barrel Roller Operator Relationship Specialty Start Date End Date Tennille Linton NP [address] [place] [phone] PCP - General Nurse Practitioner 08/07/23 documented as of this encounter
--- OUTSIDE RECORDS SUMMARY | 2025-03-04 15:27 | XMS_ITS | Continuity of Care Document ---
Author Name [facility], Medical Address [address] [place] [address] Organization Unknown Address [address] [place] [address] Medications No known medications Problems No known problems
--- OUTSIDE RECORDS SUMMARY | 2025-03-04 15:27 | XMS_ITS | Continuity of Care Document ---
Author Name [facility], Medical Address [address] [place] [address] Organization Unknown Address [address] [place] [address] Medications No known medications Problems No known problems
--- OUTSIDE RECORDS SUMMARY | 2025-03-04 15:27 | XMS_ITS | Encounter Summary ---
Author Organization [facility] Address [address] [address] Phone Care Team Providers Care Customer Relations Assistant Name Role Phone Tennille Linton Sloane NATHAN Primary Care Provider + Reason for Visit * Reason Comments Med Refill Encounter Details Date Type Department Care Team (Late st Contact Info) Description 12/04/2022 Refill [facility] [place], [address] [place] [address] Andrey Phan MD [address] [place] [address] [place] [address] Social History Tobacco Use Types [...] Visit [facility] [place] [address] [place] [address] Andrey Phan MD [address] [facility] [place] [address] documented as of this encounter Visit Diagnoses Not on filedocumented in this encounter Care Teams Customer Relations Assistant Relationship Specialty Start Date End Date Tennille Linton NP [address] [place] [phone] PCP - General Nurse Practitioner 08/07/23 documented as of this encounter
--- OUTSIDE RECORDS SUMMARY | 2025-03-04 15:27 | XMS_ITS | Encounter Summary ---
Author Organization [facility] [place], Address [address] [address] Phone Care Team Providers Care Director Of Agriculture Name Role Phone Royer, Tennille Sloane NATHAN Primary Care Provider + Reason for Visit * Reason Comments Med Refill Encounter Details Date Type Department Care Team (Late st Contact Info) Description 09/18/2022 Refill [facility] [address] [place] [address] Andrey Phan MD [address] [place] [address] [place] [address] Social History Tobacco Use Types [...] Visit [facility] [address] [place] [address] Andrey Phan MD [address] [place] [address] [place] [address] documented as of this encounter Visit Diagnoses Not on filedocumented in this encounter Care Teams Director Of Agriculture Relationship Specialty Start Date End Date Tennille Linton NP [address] [place] [phone] PCP - General Nurse Practitioner 08/07/23 documented as of this encounter
--- OUTSIDE RECORDS SUMMARY | 2025-03-04 15:27 | XMS_ITS | Encounter Summary ---
Author Organization [facility] [place], Address [address] [address] Phone Care Team Providers Care Networker Name Role Phone Royer, Tennille Sloane NATHAN Primary Care Provider + Reason for Visit * Reason Comments Med Refill Encounter Details Date Type Department Care Team (Late st Contact Info) Description 08/13/2022 Refill [facility] [address] [place] [address] Andrey Phan MD [address] [place] [address] [place] [address] Social History Tobacco Use Types [...] Visit [facility] [address] [place] [address] Andrey Phan MD [address] [place] [address] [place] [address] documented as of this encounter Visit Diagnoses Not on filedocumented in this encounter Care Teams Networker Relationship Specialty Start Date End Date Tennille Linton NP [address] [place] [phone] PCP - General Nurse Practitioner 08/07/23 documented as of this encounter
--- OUTSIDE RECORDS SUMMARY | 2025-03-04 15:27 | XMS_ITS | Encounter Summary ---
Author Organization [facility] Address [address] [address] Phone Care Team Providers Care It Senior Software Engineer Java Name Role Phone Tennille Linton NP Primary Care Provider + Encounter Details Date Type Department Care Team (Late st Contact Info) Description 04/27/2024 Documentation Only [facility] [place], [address] [facility] [place] [address] [place] [address] [place] [phone] Social History Tobacco Use Types Packs/Day [...] Visit [facility] [place] [address] [facility] [place] [address] Andrey Phan MD [address] [facility] [place] [address] documented as of this encounter Visit Diagnoses Not on filedocumented in this encounter Care Teams It Senior Software Engineer Java Relationship Specialty Start Date End Date Tennille Linton NP [address] [place] [phone] PCP - General Nurse Practitioner 08/07/23 documented as of this encounter
--- OUTSIDE RECORDS SUMMARY | 2025-03-04 15:27 | XMS_ITS | Encounter Summary ---
Author Organization [facility] [place], Address [address] [address] Phone Care Team Providers Care Active Directory Systems Administrator Name Role Phone Royer, Tennille Sloane NATHAN Primary Care Provider + Reason for Visit * Reason Comments Med Refill Encounter Details Date Type Department Care Team (Late st Contact Info) Description 07/23/2022 Refill [facility] [address] [place] [address] Andrey Phan MD [address] [place] [address] [place] [address] Social History Tobacco Use Types [...] Visit [facility] [address] [place] [address] Andrey Phan MD [address] [place] [address] [place] [address] documented as of this encounter Visit Diagnoses Not on filedocumented in this encounter Care Teams Active Directory Systems Administrator Relationship Specialty Start Date End Date Tennille Linton NP [address] [place] [phone] PCP - General Nurse Practitioner 08/07/23 documented as of this encounter
--- OUTSIDE RECORDS SUMMARY | 2025-03-04 15:27 | XMS_ITS | Encounter Summary ---
Author Organization [facility] [place], Address [address] [address] Phone Care Team Providers Care Philosophy Professor Name Role Phone Tennille Linton Sloane NATHAN Primary Care Provider + Reason for Visit * Reason Comments Med Refill Encounter Details Date Type Department Care Team (Late st Contact Info) Description 07/23/2022 Refill [facility] [address] [place] [address] Denise Isbell PA [address] [place] [address] [place] [address] Social History Tobacco Use Types [...] Visit [facility] [address] [place] [phone] Andrey Phan MD [address] [place] [address] [place] [address] documented as of this encounter Visit Diagnoses Not on filedocumented in this encounter Care Teams Philosophy Professor Relationship Specialty Start Date End Date Tennille Linton NP [address] [place] [phone] PCP - General Nurse Practitioner 08/07/23 documented as of this encounter
--- OUTSIDE RECORDS SUMMARY | 2025-03-04 15:28 | XMS_ITS | Continuity of Care Document ---
Author Name Inocencio Worthington Address [address] [place] [address] Organization Unknown Address [address] [place] [address] Medications No known medications Problems No known problems
--- OUTSIDE RECORDS SUMMARY | 2025-03-04 15:28 | XMS_ITS | Encounter Summary ---
Author Organization [facility] Address [address] [facility] [address] [place] [address] Encounters * CPT with Medical [facility] at [employer] on 2025-02-01 { reasonForRequest : Pt's sister Leatha reporting the pt finished course of antibiotic for UTI>vomiting since and spiking fever>afraid of dehydration and worsening symptoms , patientReports : Inability to fully empty bladder , denies :[ Unable to void greater than 5 hours , Erection that will not go away after 2 hours , Fall or trauma that results in urinary incontinence in the setting of pain , Fall or injury that results in incontinence in the absence of pain , Lower back pain either unilateral or bilateral, unable to void, painful urination -hematuria , Painful urination , Frequent and increased urination with flank pain , Painful urination with or without fever ], chiefComplaints : Fever, Nausea / Vomiting , pmh : Organ Transplant, Hypertension, Diabetes MellitusType 2, Hyperlipidemia, Stroke, Cancer , allergies : Dilaudid, Oxycodone, Percoc et , otherAllergies :null, painAssessment : , visitOutcome& quot;: , additionalComments : 69 y.o male complains of Fever, Nausea / Vom iting\n\nPt was recently in the ER for UTI and was put on a medication was given IV vanco , due to MRSA. \Karena was sent home on and finished that course. \nOn Saturday, he went to the urologist andwas found to have a UTI, and was put on Cipro, and he finished yesterday. He is not having any confusion which is his basline to do. \Karena does have nausea and low-grade fever. \Karena has not been eating or drinking; he has a feeding tube and he threw it up everything. \Karena has had increased urinationas they have increased his fluid bolus. \Karena has a h/o stroke but ended up with a GTube from radiation on the head and neck in June, he is now transitioning to food. \nCancer in his inner ear, rosana h/o kidney transplant. The anti rejection drug has a h/o skin cancer. \n\n\n\nI provided information on the mobile health provider response time and advised the patient and/or caregiver to monitor reported signs and symptoms. I discussed the warning signs of when to seek emergency care. } Pt chief complaint t today of nausea, fever and vomiting which have been occurring for approx 2 days prior to kin arrival at scene. Pt is bed bound due to a stroke that he suffered many years prior. Pt does have a Rosario catheter placed which he states he has been -trying to have removed since Septemberof this year . Pt also notes that he just finished a 5 days antibiotic regiment yesterday and sincethat has been having an increased temp, has thrown up one time and is having severe nausea. ( pt has used Tylenol with no benefit due to vomiting). Pt and family today would appreciate a general assessment as well as possible treatment. Pt today denies any cp, sob, diarrhea, dizziness or changes invision. Pt allergies are noted. Nonneural focal exam, afebrile, vitals are noted to be wnl for the baseline of the pt. Lungs present as clear bilaterally on auscultation. Benign abdominal assessment. Lower extremities present at baseline. Rosario catheter presents in tact with approx 400 ml of wood colored urine. POC blood work notes all labs to be within normal limits of the pt.multiple iv attempts made on pt without success. Pt is caox4 with a GCS of 15. Urine culture acquired for send out to [facility]. [facility] Aamir Martinez consulted. Pt informed of findings. Pt and family instructed that a follow up appointment needs to be made with the primary provider of the pt for potential prolonged infection. Family agrees. Pt is given 4 mg of intramuscular zofran to assist with nausea. Pt and family are educated on red flag S&S and told to immediately call emergency services if any present. ORAL_MEDICATION, EKG, POC_BLOODWORK, POC_FLU_STREP, URINE_DIPSTICK, COVID_TEST Written by [facility] 2025-02-01
--- OUTSIDE RECORDS SUMMARY | 2025-03-04 15:28 | XMS_ITS | Encounter Summary ---
Author Organization [facility] Address [address] [address] Phone Care Team Providers Care Carpet Layer Helper Name Role Phone Tennille Linton Sloane NATHAN Primary Care Provider + Reason for Visit * Reason Comments Med Refill Encounter Details Date Type Department Care Team (Late st Contact Info) Description 12/10/2022 Refill [facility] [place], [address] [place] [address] Andrey Phan MD [address] [place] [address] [place] [address] Social History Tobacco Use Types [...] Visit [facility] [place] [address] [place] [place] [address] Andrey Phan MD [address] [facility] [place] [address] documented as of this encounter Visit Diagnoses Not on filedocumented in this encounter Care Teams Carpet Layer Helper Relationship Specialty Start Date End Date Tennille Linton NP [address] [place] [phone] PCP - General Nurse Practitioner 08/07/23 documented as of this encounter
--- OUTSIDE RECORDS SUMMARY | 2025-03-04 15:28 | XMS_ITS | Encounter Summary ---
Author Organization [facility] Address [address] [address] Phone Care Team Providers Care Vp Corporate Partnerships Name Role Phone Tennille Linton Sloane NATHAN Primary Care Provider + Reason for Visit * Reason Comments Med Refill Encounter Details Date Type Department Care Team (Late st Contact Info) Description 12/15/2022 Refill [facility] [place], [address] [facility] [place] [address] Andrey Phan MD [address] [place] [address] [place] [address] Social History Tobacco Use Types [...] [facility] [place] [address] [place] [address] Andrey Phan MD [address] [facility] [place] [address] documented as of this encounter Visit Diagnoses Not on filedocumented in this encounter Care Teams Vp Corporate Partnerships Relationship Specialty Start Date End Date Tennille Linton NP [address] [place] [phone] PCP - General Nurse Practitioner 08/07/23 documented as of this encounter
--- OUTSIDE RECORDS SUMMARY | 2025-03-04 15:28 | XMS_ITS | Encounter Summary ---
Author Organization [facility] Address [address] [place] [address] [place] [address] Phone Care Team Providers Care Medical Care Administrator Name Role Phone Tennille Linton NP Primary Care Provider + Anni Quiñonez PA Unavailable [phone] Encounter Details Date Type Department Care Team (Late st Contact Info) Description 02/25/2024 Procedure Pass [facility] Radiology [address] [place] [address] Social History Tobacco Use Types Packs/Day Years Used Date Smoking Tobacco: Never Passive Smoke Exposure: Never Smokeless Tobacco: Never Education Answer Date Recorded Are you interested [...] 1:30 PM EDT Office Visit [facility] Center [address] [address] Daisy Diaz MD, MPH [address] [place] [address] [address], [place] [address] [email or web address] 04/01/2025 12:00 PM EDT Office Visit [facility], [facility] [address] [place] [address] Daisy Diaz MD, MPH [address] [place] [address] [place] [phone] [email or web address] 04/01/2025 12:00 PM EDT Office Visit [facility], [address]th [place] [address] Michelle Shearer MD [address] [place] [phone] [email or web address] 04/09/2025 11:30 AM EDT Office Visit [facility], [address] [place] [address] Mary Ann Alford MD, [address] [address] [email or web address] documented as of this encounter Visit Diagnoses Not on filedocumented in this encounter Care Teams Medical Care Administrator Relationship Specialty Start Date End Date Tennille Linton NP [address] [place] [phone] PCP - General Nurse Practitioner 08/30/23 Anni Quiñonez PA [address] [facility] [address] [place] [address] [email or web address] Physician Juvenile Correctional Officer 08/30/23 shana myers [facility] Payroll Accounting Clerk Cardiology 03/12/24 documented as of this encounter Additional Source Comments The information contained in this document represents components of the legal health record. It is not the complete legal health record.[facility]
--- OUTSIDE RECORDS SUMMARY | 2025-03-04 15:28 | XMS_ITS | Encounter Summary ---
Author Organization [facility] Address [address] [address] Phone Care Team Providers Care Aviation Survival Technician Name Role Phone Ebony Lintonher Sloane NATHAN Primary Care Provider + Encounter Details Date Type Department Care Team (Late st Contact Info) Description 08/13/2023 Documentation Only [facility] [place], [address] [facility] [place] [address] [place] [address] [place] [phone] Social History Tobacco Use Types Packs/Day [...] Visit [facility] [place] [address] [facility] [place] [address] Andrey Phan MD [address] [facility] [place] [address] documented as of this encounter Visit Diagnoses Not on filedocumented in this encounter Care Teams Aviation Survival Technician Relationship Specialty Start Date End Date Tennille Linton NP [address] [place] [phone] PCP - General Nurse Practitioner 08/07/23 documented as of this encounter
--- OUTSIDE RECORDS SUMMARY | 2025-03-04 15:28 | XMS_ITS | Encounter Summary ---
Author Organization [facility] Address [address] [address] Phone Care Team Providers Care Heel Boom Operator Name Role Phone Tennille Linton NP Primary Care Provider + Encounter Details Date Type Department Care Team (Late st Contact Info) Description 03/26/2024 Documentation Only [facility] [place], [address] [facility] [place] [address] [place] [address] [place] [phone] Social History Tobacco Use Types Packs/Day [...] Visit [facility] [place] [address] [facility] [place] [address] Andrey Phan MD [address] [facility] [place] [address] documented as of this encounter Visit Diagnoses Not on filedocumented in this encounter Care Teams Heel Boom Operator Relationship Specialty Start Date End Date Tennille Linton NP [address] [place] [phone] PCP - General Nurse Practitioner 08/07/23 documented as of this encounter
--- OUTSIDE RECORDS SUMMARY | 2025-03-04 15:28 | XMS_ITS | Encounter Summary ---
Author Organization [facility] Address [address] [facility] [address] [place] [address] Phone Care Team Providers Care Pbx Installer Name Role Phone Tennille Linton ECONOMICS DEPARTMENT CHAIR Primary Care Provider + Anni Quiñonez PA Unavailable [phone] Encounter Details Date Type Department Care Team (Late st Contact Info) Description 03/18/2024 Procedure Pass [facility] Periop [address] [place] [address] Social History Tobacco Use Types Packs/Day Years [...] your housing situation today? I have jovi pugh 03/11/2024 How many times have you move [...] PM EST documented as of this encounter Functional Status * Calculated C-SSRS Risk Score (Lifetime/Recent) Answer Date of Assessment Author No Risk Indicated 03/19/2024 9:00 AM Vani Mei RN * [place] Suicide Severity Rating Scale (Screener/Recent Self-Report) Question Answer Date of Assessment Author 1. Wish to be (Past 1 Month) No 03/19/2024 9:00 AM Vani Mei, CARLOS 2. Non-Specific Active Suicidal Thoughts (Past 1 Month) No 03/19/2024 9:00 AM Vani Mei RN 6. Suicidal Behavior (Lifetime) No 03/19/2024 9:00 AM EDT Vani Maloney RN documented as of this encounter Plan of Treatment Upcoming Encounters Date Type Department Care Team (Late st Contact Info) Description 03/23/2025 1:30 PM EDT Office Visit [facility] [address] [facility] [address], [place] [address] Daisy Diaz MD, MPH [address] [place] [address] [place] [address] [email or web address] 04/01/2025 12:00 PM EDT [facility] Visit [facility], [address], [address] [place] [address] Daisy Diaz MD, MPH [address] [place] [address] [email or web address] 04/01/2025 12:00 PM EDT Office Visit [facility], [address], [address] [place] [address] Michelle Shearer MD [address] [place] [address] [email or web address] 04/09/2025 11:30 AM EDT Office Visit [facility], [facility] [address] [facility], 11th [place] [address] Mary Ann Alford MD, [address] [address] [email or web address] documented as of this encounter Visit Diagnoses Not on filedocumented in this encounter Care Teams Pbx Installer Relationship Specialty Start Date End Date Tennille Linton NP [address] [place] [address] PCP - General Nurse Practitioner 08/30/23 Anni Quiñonez PA [address] [address] [email or web address] [email or web address] 08/30/23 shana myers [facility] Psychiatric Technician Assistant Cardiology 03/12/24 documented as of this encounter Additional Source Comments The information contained in this document represents components of the legal health record. It is not the complete legal health record.[facility]
--- OUTSIDE RECORDS SUMMARY | 2025-03-04 15:28 | XMS_ITS | Clinical Summary ---
Author Organization [facility] Address [address] [place] [address] Phone Care Team Providers Care Milk Runner Name Role Phone Tennille Linton NP Primary Care Provider + Anni Quiñonez PA Unavailable [phone] Allergies Active Allergy Reactions Criticality Noted Date Comments Grass Pollen Other (See Comments) 03/12/2024 Hydrocodone Bitartrate Nausea and/or Vomiting Medium 03/13/2024 Hydromorphone Other (See Comments) High 08/12/2019 Hallucination; altered mental status, Paranoid for days Oxycodone Mental Status Change 04/03/2024 Medications tacrolimus (PROGRAF) 1 MG capsule Take 1 mg by mouth 2 (two) times a day. 4 Active rosuvastatin (CRESTOR) 40 MG tablet Take 1 tablet by mouth daily. 3 Active acetaminophen (TYLENOL) 325 mg tablet Take 2 tablets (650 mg total) by mouth every 4 (four) hours as needed. 4 Active tamsulosin (FLOMAX) 0.4 mg Cap Take 1 capsule (0.4 mg total) by mouth daily. 30 capsule 4 Active blood sugar diagnostic Strp strips 4 Active loratadine (CLARITIN) 10 mg tablet Take 10 mg by mouth daily. Active LORazepam (ATIVAN) 1 MG tablet Take 1 mg by mouth daily as needed. 4 025 Discontinued sertraline (ZOLOFT) 50 MG tablet Take 50 mg by mouth daily. 4 025 Discontinued TRESIBA FLEXTOUCH U-100 injection pen Inject 26 Units under the skin every morning. 3 025 Discontinued NOVOLOG FLEXPEN U-100 INSULIN 100 unit/mL (3 mL) flexpen Inject 6 Units under the skin daily before breakfast. Taking on a sliding scale. 3 025 Discontinued traZODone (DESYREL) 50 MG tablet Take 0.25-0.5 tablets (12.5-25 mg total) by mouth nightly at bedtime as needed. 30 tablet 4 025 Discontinued traMADoL (ULTRAM) 50 mg tablet Take 50 mg by mouth every 6 (six) hours as needed for pain (specific location in comments). 025 Discontinued aspirin 325 MG tablet Take 325 mg by mouth daily. 025 Discontinued senna (SENOKOT) 8.6 mg tablet Take 1 tablet by mouth daily. 025 Discontinued doxazosin (CARDURA XL) 8 MG 24 hr tablet Take 8 mg by mouth daily with breakfast. 025 Discontinued Active Problems Problem Noted Date Diagnosed Date Malignant neoplasm of prostate 03/02/2025 Assessment & Plan (03/03/2025 7:42 AM EDT): Assessment: Silvia Law is a 69 y.o. 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 Complex urodynamics, if possible, may help clarify this issue. In addition, based on the description of recurrent urinary tract infection as well as a report of inflammatory changes associated with the [place] right kidney, I am concerned that the [...] nephrectomy may be the most appropriate course of action. At this point, I feel that our [...] are no PSA with which to compare from the pre-TURP period. I favor a repeat PSA and MRI prostate Plan: Mr. Law will return after a repeat PSA and further evaluation with a MRI prostate to continue the discussion regarding the management of prostate cancer. 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 Anemia 03/12/2024 Congestive heart failure 03/12/2024 Overview (03/13/2024): Prior to transplant, no issue since Depression 03/12/2024 Overview (03/13/2024): Mild for years, situational GERD (gastroesophageal reflux disease) HLD (hyperlipidemia) 03/12/2024 Overview (03/13/2024): On a statin SCCA (squamous cell carcinoma) of skin 4 Overview (03/12/2024): > 12 SCC's Type 1 diabetes mellitus wit h diabetic neuropathy, with long-term current use of insulin 08/11/2019 Overview (03/13/2024): Since 1965, Diabetic nephropathy, sp transplant Neuropathy since 2009 Stroke 08/11/2019 Overview (03/13/2024): 04/2018, 9 months post transplant History of kidney transplant 08/07/2017 Overview (03/12/2024): Baseline creatinine 1.7-1.9 Resolved Problems Problem Noted Date Diagnosed Date Resolved Date 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, [address], [place] [address] Raleigh Arellano MD Malignant neoplasm of prostate (Primary Dx) 03/02/2025 2:00 PM EDT Office Visit [facility], [address], [address] [place] [address] Amauri Rizo MD, PAULA Prostate cancer (Primary Dx) 03/02/2025 1:00 PM EDT Office Visit [facility], [address], [address] [place] [address] Bartolome Sandy MD, MS Prostate cancer (Primary Dx); Malignant neoplasm of prostate 03/02/2025 12:30 PM EDT Infusion [facility], [address], [address] [place] [address] Bartolome Sandy MD, MS Karlie Mcguire RN Prostate cancer 01/22/2025 Telephone [facility] Center [address] [place] [address] Genna Hogan LPN pathology result 01/20/2025 Documentation [facility], [address], [address] [place] [phone] Michelle Shearer MD 01/19/2025 2:12 PM EDT - 01/19/2025 11:59 PM EDT Hospital Encounter [facility], [address] [address] Discharge Disposition: Home or Self Care 01/14/2025 8:40 AM EDT Office Visit [facility], [address], [address] [place] [address] Daisy Sherwood MD, MPH Skin lesion (Primary Dx); Actinic keratosis; History of skin cancer 01/14/2025 Orders Only [facility], [address], [address] [place] [address] Bartolome Sandy MD, MS Prostate cancer (Primary Dx) 01/14/2025 Orders Only [facility], [address], [address] [place] [address] Michelle Shearer MD Squamous cell carcinoma of ear, left (Primary Dx); History of kidney transplant from Last 3 Months Immunizations Immunization Administration Dates Next Due Influenza High-Dose Trivalen t Preservative Free IM 03/25/2024(Deferred: Patient Refused) Family History Medical History Relation Comments Lymphoma Father Melanoma Father Pancreatic cancer Father Prostate cancer Father Skin cancer, basal cell Father Skin cancer, squamous cell Father Breast cancer Sister 1 Melanoma Sister 1 Skin cancer, basal cell Sister 1 Skin cancer, squamous cell Sister 1 Melanoma Sister 2 Skin cancer, basal cell Sister 2 Skin cancer, squamous cell Sister 2 Melanoma Sister 3 Skin cancer, basal cell Sister 3 Skin cancer, squamous cell Sister 3 Skin cancer, basal cell Sister 4 Skin cancer, squamous cell Sister 4 Relation Status Comments Father Sister 1 Sister 2 Alive Sister 3 Alive Sister 4 Alive Social History Tobacco Use Types Packs/Day Years Used Date Smoking Tobacco: Never Passive Smoke Exposure: Never Smokeless Tobacco: Never Tobacco Cessation:Counseling Given: Not Answered Alcohol Use Standard Drinks/Week Comments Never 0 [...] Orientation Straight 08/30/2023 3: 06 PM EST Last Filed Vital Signs Vital Sign Reading Time Taken Comments Blood Pressure 141/61 03/02/2025 12:51 PM EDT Pulse 80 03/02/2025 12:51 PM EDT Temperature 36.5 C (97.7 F) 03/02/2025 12:51 PM EDT Respiratory Rate 18 03/02/2025 12:51 PM EDT Oxygen Saturation 97% 03/02/2025 12:51 PM EDT Inhaled Oxygen Concentration 40% 03/23/2024 5 :00 AM EDT Weight 75.8 kg (167 lb) 05/30/2024 1:03 PM EST Height 167.6 cm (5' 6 ) 05/30/2024 1:03 PM EST Body Mass Index 26.95 05/30/2024 1:03 PM EST Plan of Treatment Upcoming Encounters Date Type Department Care Team (Late st Contact Info) Description 03/23/2025 1:30 PM EDT Office Visit [facility] Center [address] [facility] [address], [place] [address] Daisy Sherwood MD, MPH [address] [facility] [address] [address] [email or web address] 04/01/2025 12:00 PM EDT [facility] [address], 5[address] [place] [address] Daisy Bowser MD, MPH [address] [facility] [address] [place] [address] [email or web address] 04/01/2025 12:00 PM EDT Office Visit [facility], [facility] [address] [facility], 5th [place] [address] Michelle Shearer MD [address] [place] [address] [email or web address] 04/09/2025 11:30 AM EDT Office Visit [facility], [facility] [address] [facility], 11th [place] [address] Mary Ann Alford MD, [address] [address] [email or web address] Health Maintenance Due Date Last Done Comments HEPATITIS C SCREENING 09/22/1975 ZOSTER VACCINES (1 of 2) 1976 COLOGUARD 2002 COLONOSCOPY 2002 COLORECTAL CANCER SCREENING 2002 FIT TEST 2002 FOBT 2002 SIGMOIDOSCOPY 2002 VIRTUAL COLONOSCOPY 2002 RSV VACCINE (1 - Risk 60-74 years 1-dose series) 2017 PNEUMOCOCCAL VACCINES (50+ years) (2 of 2 - PCV) 01/16/2018 01/16/2017 DIABETIC EYE EXAM 03/13/2024 INFLUENZA VACCINE (#1) 2025 , 05/27/2023, 04/07/2021, Additional history exists COVID-19 VACCINE ( - 2024- season) 2025 05/27/2023, 05/03/2022, 03/02/2021, Additional history exists DEPRESSION SCREENING 04/01/2025 04/01/2024 HEMOGLOBIN A1C 04/06/2025 01/04/2025, 11/22, 10/02/2024, Additional history exists BLOOD PRESSURE 08/30/2025 03/02/2025 URINE MICROALBUMIN/CREATININE RATIO 01/04/2026 01/04/2025, 12/01/2024, 10/01/2024, Additional history exists Adult Td,Tdap Booster 02/03/2027 02/03/2017 SMOKING STATUS SCREENING (Once After 26 Yrs) Completed 09/29/2024 HEPATITIS A VACCINES Aged Out No long er eligible based on patient's age to complete this topic HIB VACCINES Aged Out No longer eligi ble based on patient's age to complete this topic MENINGOCOCCAL VACCINES (ACWY) Aged Out No longer eligible based on patient's age to complete this topic MENINGOCOCCAL VACCINES (B) Aged Out N o longer eligible based on patient's age to complete this topic Medical Devices Implanted Type Area Visual Educator Device Identifier Shelf Expiration Date Model / Serial / Lot Patient Manager Anastomosis 3mm Vesselxorthopedic Microvascular Polyethylene S/S Bx/6ea - [id number] Implanted:Qty: 1 on 03/18/2024 by Mary Ann Alford MD, FACS at [facility] STANDARD Left: Neck [employer] ALLIAN 06/12/2027 [id number] / / [id number] Loop Recorder Procedures Procedure Name Priority Date/Time Associated Diagnosis Comments PSA DIAGNOSTIC (MONITORING) Routine 03/02/2025 3:48 PM EDT Prostate cancer DERMATOPATHOLOGY Routine 01/14/2025 12:0 0 AM EDT OUTSIDE PATHOLOGY REVIEW Routine 025 12:00 AM EDT OUTSIDE PATHOLOGY 12/03/2024 OUTSIDE PROCEDURE 12/03/2024 MICROALBUMIN/CREATININE RATIO, RANDOM URINE Routine 03/22/2024 12:19 PM EDT from Last 3 Months or Most Recently Relevant to Health Maintenance Results * PSA diagnostic (monitoring) (03/02/2025 3:48 PM EDT) PSA Monitoring 0.41 0.00 - 4.00 ng/mL [facility] LIC# [id number] Blood 03/02/2025 3:48 PM EDT 03/02/2025 4:03 PM EDT us Bartolome Sandy MD, MS LAB BLOOD ORDERABLES Final Result [facility] LIC# [id number] [address] [place], [place] [id number] * Dermatopathology (01/14/2025 12:00 AM EDT) 01/14/2025 01/14/2025 Narrative [facility] - 01/21/2025 11:44 AM EDT CASE: [id number] PATIENT: SILVIA LAW Date: 1955 Sex: Male [facility] Department of Pathology [address] [place], [place] [address]IA License No.: [id number] Scoring Machine Operator: Dr. Francesco Varma M.D., Ph.D. Physician: DAISY SHERWOOD MD, MPH Procedure Date: 01/14/2025 Resident: Librado Arenas MD Pathologist: Jerome Doty M.D., M.M.Sc. PATHOLOGIC DIAGNOSIS: A. SKIN, RIGHT PRESCAPULAR BACK, SHAVE BIOPSY: SQUAMOUS CELL CARCINOMA, invasive, present at side and deep margins. CLINICAL DATA: History: SCC Operation: Shave biopsy Clinical Diagnosis: See Above TISSUE SUBMITTED: A/1. Right prescapular back GROSS DESCRIPTION: The specimen is received in formalin, labeled with the patient's name, medical record number and Right prescapular back , and consists of a merino skin shave (1.0 x 0.7 x <0.1 cm). The epithelium is entirely surfaced by merino-yanes, verrucous lesion. The specimen is inked blue, trisected, and entirely submitted. A1-A2: 3 fragments. Dictated by: Radha Unger By his/her signature below, the senior physician certifies that he/she personally conducted a microscopic examination ( gross only exam if so stated) of the described specimen(s) and rendered or confirmed the diagnosis(es) related thereto. Final Diagnosis by Jerome Doty M.D., M.M.Sc., Electronically signed on December at 11:44:50AM us Daisy Sherwood MD, MPH PATHOLOGY ORDERABLES Final Result [facility] [address] [place] [address] * Outside Procedure (12/03/2024) us Scanning Interface Provider PROCEDURE/MINOR SURG ICAL PERFORMABLES Final Result * Outside Pathology (12/03/2024) us Scanning Interface Provider PATHOLOGY ORDERABLES Final Result * Outside Pathology Review (12/03/2024 12:00 AM EDT) 12/03/2024 01/19/2025 Narrative [facility] - 02/09/2025 10:43 AM EDT CASE: [id number] PATIENT: SILVIA LAW Date: 1955 Sex: Male [facility] Department of Pathology [address] [place], [place] [address]IA License No.: [id number] Scoring Machine Operator: Dr. Francesco Varma MD, PhD Physician: BARTOLOME SANDY MD, MS Addended Report Resident: Trent Martins M.D. Pathologist: Katelynn Beckford M.D. PATHOLOGIC DIAGNOSIS: CONSULT SLIDES FROM [facility], [place], [place] CONSULT MATERIAL ([id number]; 12/03/24): A. PROSTATE CHIPS, TRANSURETHRAL RESECTION (TURP): PROSTATIC ADENOCARCINOMA, involving 20% of total tissue, see NOTE. Perineural invasion is present. A triple immunostain received from the referring institution and reviewed at [facility] demonstrates an absence of basal cells (p63 and 34BE12 negative) and the presence of AMACR in the area of carcinoma. Note: The tumor is virtually entirely Andry pattern 3; however, not all slides were received for review. We will request the additional slide, and the [place] score will be reported in an addendum. CLINICAL DATA: History: none provided TISSUE SUBMITTED: Consult slides. GROSS DESCRIPTION: Received from [facility], Department of Pathology, [address] [place] [address],are six (6) slides. Six (6) stained slides are labeled [id number] and sublabeled 06/25 , PAC , 06/26 , 06/27 , 06/28 and PAC which correspond to a prostate chip, transurethral resection turp obtained on 12/03/24, according to the accompanying pathology report bearing the patient's name and date of . By his/her signature below, the senior physician certifies that he/she personally conducted a microscopic examination ( gross only exam if so stated) of the described specimen(s) and rendered or confirmed the diagnosis(es) related thereto. Final Diagnosis by Katelynn Beckford M.D., from [facility], is ten (10) unstained slides, labeled [id number] and sublabeled 06/24 , 06/24 , 06/24 , 06/24 , 06/24 , 06/24 , 06/24 , 06/24 , 06/24 and 06/24, which corresponds to the above case. CONSULT MATERIAL ([id number]; 12/03/24) A. PROSTATE CHIPS, TRANSURETHRAL RESECTION (TURP): PROSTATIC ADENOCARCINOMA, [place] score 3+3=6 (Grade Group 1), involving 20% of total tissue (see NOTE). Perineural invasion is present. NOTE: For the additional block ( 1-1 ), only recut material was available for review. In my opinion, a definitive component of Andry pattern 4 is not present. Addendum #1 by Silvia Hernandez [facility], Electronically signed on Sunday February 09, 2025 at 10:42:22AM us Bartolome Sandy MD, MS PATHOLOGY ORDERABLES Edite d Result - Final [facility] [address] [place] [id number] * (ABNORMAL) Microalbumin/creatinine ratio, random urine (03/22/2024 12:19 PM EDT) UR CREATININE 200.2 mg/dL [facility] Comment: No reference values apply. Interpret with other clinical data. MALB/CRE 82.9(H) 0.0 - 30.0 mg/Alb/g Cre [facility] URINE MICROALBUMIN 16.6(H) 0.0 - 2.0 mg/dL [facility] Urine (Urine) 03/22/2024 12: 19 PM EDT 03/22/2024 12:32 PM EDT us Mary Ann Alford MD, FACS URINE ORDERABLES Fin al Result [facility] [address] [place] [id number] from Last 3 Months or Most Recently Relevant to Health Maintenance Insurance CARE MEDICARE REPLACEMENT CARE MEDICARE REPLACEMENT CARE MEDICARE REPLACEMENT MEDICARE REPLACEMENT CARE MEDICARE REPLACEMENT [facility] ONE CARE MEDICARE REPLACEMENT Advance Directives For more information, please contact: [phone] (9AM - 5PM Alicia/[facility], Saturday-Saturday) Documents on File Type Date Recorded Patient Medication Technician Expl anation Healthcare Proxy 03/28/2024 12:50 AM * Full Code (Latest Code Status on File) Date Activated Date Inactivated Comments 03/18/2024 9:06 PM Question Answer Comments Code Status Confirmed With: Patient Care Teams Milk Runner Relationship Specialty Start Date End Date Tennille Linton NP [address] [place] [address] PCP - General Nurse Practitioner 08/30/23 Anni Quiñonez PA [address] [place] [phone] [email or web address] Diesel Technician 08/30/23 shana myers [facility] Scientologist Cardiology 03/12/24 Additional Source Comments The information contained in this document represents components of the legal health record. It is not the complete legal health record.[facility]
--- OUTSIDE RECORDS SUMMARY | 2025-03-04 15:28 | XMS_ITS | Encounter Summary ---
Author Organization [facility] Address [address] [address] Phone Care Team Providers Care Agile Qa Tester Name Role Phone Tennille Linton NP Primary Care Provider + Encounter Details Date Type Department Care Team (Late st Contact Info) Description 01/08/2025 Documentation Only [facility] [place], [address] [place] [address] [place] [address] [place] [phone] Social History Tobacco Use Types Packs/Day [...] Visit [facility] [address] [facility] [address] [place] [address] Andrey Phan MD [address] [facility] [address] [place] [address] documented as of this encounter Visit Diagnoses Not on filedocumented in this encounter Care Teams Agile Qa Tester Relationship Specialty Start Date End Date Tennille Linton NP [address] [place] [phone] PCP - General Nurse Practitioner 08/07/23 documented as of this encounter
--- OUTSIDE RECORDS SUMMARY | 2025-03-04 15:28 | XMS_ITS | Encounter Summary ---
Author Organization [facility] Address [address] [place] [address] [place] [address] Phone Care Team Providers Care Job Specification Writer Name Role Phone Tennille Linton NP Primary Care Provider + Anni Quiñonez PA Unavailable [phone] Encounter Details Date Type Department Care Team (Late st Contact Info) Description 02/25/2024 Procedure Pass [facility] Radiology [address] [place] [address] Social History Tobacco Use Types Packs/Day Years [...] Description 03/23/2025 1:30 PM EDT Office Visit [facility] Center [address], [place] [address] Daisy Diaz MD, MPH [address] [place] [address] [address] [address] [email or web address] 04/01/2025 12:00 PM EDT Office Visit [facility], [facility] [address] [facility], 5th [place] [address] Daisy Diaz MD, MPH [address] [place] [address] [place] [address] [email or web address] 04/01/2025 12:00 PM EDT Office Visit [facility], [address], 5th [place] [address] Michelle Shearer MD [address] [place] [address] [email or web address] 04/09/2025 11:30 AM EDT Office Visit [facility], [address], 11th [place] [address] Mary Ann Alford MD, [address] [address] [email or web address] documented as of this encounter Visit Diagnoses Not on filedocumented in this encounter Care Teams Job Specification Writer Relationship Specialty Start Date End Date Tennille Linton NP [address] [place] [address] PCP - General Nurse Practitioner 08/30/23 Anni Quiñonez PA 200 [facility] 106 [place] [address] [email or web address] Physician Core Dropper 08/30/23 shana myers Heart Vascular Program [facility] Pet House Sitter Cardiology 03/12/24 documented as of this encounter Additional Source Comments The information contained in this document represents components of the legal health record. It is not the complete legal health record.[facility]
--- OUTSIDE RECORDS SUMMARY | 2025-03-04 15:28 | XMS_ITS | Encounter Summary ---
Author Organization [facility] Address [address] [place] [phone] Phone Care Team Providers Care Stage Electrician Name Role Phone bEony Lintonher Sloane NATHAN Primary Care Provider + Reason for Visit * Reason Comments Med Refill Encounter Details Date Type Department Care Team (Late st Contact Info) Description 12/19/2023 Refill [facility] [place], [address] [place] [address] Kennedy Childs DO [address] [facility] [place] [address] Social History Tobacco Use Types [...] Visit [facility] [address] [place] [address] Andrey Phan MD [address] [place] [address] documented as of this encounter Visit Diagnoses Not on filedocumented in this encounter Care Teams Stage Electrician Relationship Specialty Start Date End Date Tennille Linton NP [address] [place] [phone] PCP - General Nurse Practitioner 08/07/23 documented as of this encounter
--- OUTSIDE RECORDS SUMMARY | 2025-03-04 15:28 | XMS_ITS | Encounter Summary ---
Author Organization [facility] Address [address] [address] Phone Care Team Providers Care Crankshaft Balancer Name Role Phone Tennille Linton NP Primary Care Provider + Encounter Details Date Type Department Care Team (Late st Contact Info) Description 08/28/2023 Documentation Only [facility] [place], [address] [place] [address] [place] [address] [place] [phone] Social History Tobacco Use Types Packs/Day [...] Visit [facility] [address] [place] [address] Andrey Phan MD [address] [facility] [place] [address] documented as of this encounter Visit Diagnoses Not on filedocumented in this encounter Care Teams Crankshaft Balancer Relationship Specialty Start Date End Date Tennille Linton NP [address] [place] [phone] PCP - General Nurse Practitioner 08/07/23 documented as of this encounter
--- OUTSIDE RECORDS SUMMARY | 2025-03-04 15:28 | XMS_ITS | Encounter Summary ---
Author Organization [facility] Address [address] [facility] [address] [place] [address] Encounters * CPT with Medical instED at [facility] on 2025-01-13 { reasonForRequest :null, patientReports : , denies :["Unable to void greater than 5 hours , Erection that will not go away after 2 hours , Fall or trauma that results in urinary incontinence in the setting of pain , Fall or injury that results in incontinence in the absence of pain , Lower back pain either unilateral or bilateral, unable to void, painful urination -hematuria ], chiefComplaints : Urinary Catheter/Nephrostomy Tube Problems, Urinary Symptoms , pmh : Organ Transplant, Hypertension, Diabetes Mellitus Type 2, Hyperlipidemia, Stroke , allergies": Dilaudid, Oxycodone, Percocet , otherAllergies :null, painAssessment&q uot;: , visitOutcome : , additionalComments : 69 y.opal complains of Urinary Catheter/Nephrostomy Tube Problems, Urinary Symptoms\n\nPatients sister calling in to place a referral.\nPatient who had a TURP done in November, and has had indwelling aguero catheters.\nDue to recurrent UTIs they opted to have aguero removed, aguero was removed yesterday at theurologist office, and family has been straigth catheterizing every 6 hours-\nPer sister the last 3 attempts were difficult to pass but they were able to successfully drain.\nLast succuess straigth cath was approx 7:30a this morning.\nSister reports attempting to straigth cath for the last 30 min and not being able to pass more than half way.\nThere is no bleeding or swelling, patient denies any abdominal pain, pressure or distention.\nThey would like to avoid ED if possible.\n\n\nI provided information on the mobile health provider response time and advised the patient and/or caregiver to monitor reported signs and symptoms. I discussed the warning signs of when to seek emergency care. } Encountered patient supine and conscious with family present. Family reports patient receives straight catheterization every six hours to empty his bladder however, the most recent attempt was unsuccessful. Family reports patient is undergoing this regimen under the recommendation of his urologist after suffering chronic urinary tract infections due to an indwelling Aguero catheter. Family reportsthey are seeking assistance with a straight catheterization, and if the straight catheterization isunsuccessful per patient???s neurologist, a Aguero catheter should be set in place until patients follow up appointment which is on 01/14/25. Patient denies somatic complaints when prompted. Patient isbed bound secondary to a stroke. Skin warm, dry and of appropriate color for ethnicity. Head and neck, free of trauma and edema. -JVD. Breath sounds present, clear and equal bilaterally. Abdomen is soft, non-tender and non-distended. Extremities free of trauma and edema. [facility] contacted: initial attempt with company provided 12F unsuccessful; after speaking with family, they advised this signwriter that patients urologist recommends replacing a aguero catheter in favor of multiple straight catheterizations per day, if family was unsuccessful or found difficulty with the straight catheterization. 16F aguero catheter placed, clear yellow urine noted in reservoir; picture of reservoir uploaded via [employer]. Sterile technique and gloves were utilized during both catheterization attempts. Family was advised to monitor patient for pain at aguero insertion sites, fever and the inability to create urine; urged to seek further medical attention including 911 of said symptoms were to develop. Patient and family verbalize understanding of the plan and report they are comfortable with patient remaining home today, as he will be seeing his urologist in person tomorrow. ORAL_MEDICATION, EKG, POC_BLOODWORK, GLUCOSE, URINE_DIPSTICK, WOUND_CARE, STRAIGHT_CATHETERIZATION,CULTURE_URINE Written by [employer] on 2025-01-13
--- OUTSIDE RECORDS SUMMARY | 2025-03-04 15:28 | XMS_ITS | Encounter Summary ---
Author Organization [facility] Address [address] [place] [address] [place] [address] Phone Care Team Providers Care Patient Services Manager Name Role Phone Tennille Linton NP Primary Care Provider + Anni Quiñonez PA Unavailable [phone] Encounter Details Date Type Department Care Team (Late st Contact Info) Description 09/17/2024 Procedure Pass [facility], [facility] [place] [address], [address] [place] [address] Social History Tobacco Use Types Packs/Day Years [...] Description 03/23/2025 1:30 PM EDT Office Visit [facility] Center [address] [facility] [address] [address] Daisy Diaz MD, MPH [address] [facility] [address], [place] [address] [email or web address] 04/01/2025 12:00 PM EDT Office Visit [facility], [facility] [address] [facility], 5th [place] [address] Daisy Diaz MD, MPH [address] [facility] [address] [place] [address] [email or web address] 04/01/2025 12:00 PM EDT Office Visit [facility], [facility] [address] [facility], 5th [place] [address] iMchelle Shearer MD [address] [place] [phone] [email or web address] 04/09/2025 11:30 AM EDT Office Visit [facility], [address], 11th [place] [address] Mary Ann Alford MD, [address] [address] [email or web address] documented as of this encounter Visit Diagnoses Not on filedocumented in this encounter Care Teams Patient Services Manager Relationship Specialty Start Date End Date Tennille Linton NP [address] [place] [address] PCP - General Nurse Practitioner 08/30/23 Anni Quiñonez PA [address] [facility] 106 [place] [address] [email or web address] Physician Seaming Inspector 08/30/23 shana myers Heart Vascular Program [facility] Batch Freezer Cardiology 03/12/24 documented as of this encounter Additional Source Comments The information contained in this document represents components of the legal health record. It is not the complete legal health record.[facility]
--- OUTSIDE RECORDS SUMMARY | 2025-03-04 15:28 | XMS_ITS | Encounter Summary ---
Author Organization [facility] Address [address] [facility] [address] [place] [address] Phone Care Team Providers Care Rock Loader Name Role Phone Tennille Linton ROUTE RIDER SUPERVISOR Primary Care Provider + Anni Quiñonez PA Unavailable [phone] Encounter Details Date Type Department Care Team (Late st Contact Info) Description 03/20/2024 Procedure Pass [facility] Echocardiography [address] [place] [address] Social History Tobacco Use Types Packs/Day Years [...] Description 03/23/2025 1:30 PM EDT Office Visit [facility] Center [address] [facility] [address] [place] [address] Daisy Diaz MD, MPH [address] [place] [address] [address], [place] [address] [email or web address] 04/01/2025 12:00 PM EDT Office Visit [facility], [facility] [address] [facility], 5th [place] [address] Daisy Diaz MD, MPH [address] [facility] [address] [place] [address] [email or web address] 04/01/2025 12:00 PM EDT Office Visit [facility], [facility] [address] [facility], 5th [place] [address] Michelle Shearer MD [address] [place] [address] [email or web address] 04/09/2025 11:30 AM EDT Office Visit [facility], [address]th [place] [address] Mary Ann Alford MD, FACS [address] [place] [address] [email or web address] documented as of this encounter Visit Diagnoses Not on filedocumented in this encounter Care Teams Rock Loader Relationship Specialty Start Date End Date Tennille Linton NP [address] [place] [address] PCP - General Nurse Practitioner 08/30/23 Anni Quiñonez PA [address] [place] [address] 106 [place] [address] [email or web address] [email or web address] Conche Operator 08/30/23 shana myers Heart Vascular Program [facility] Physicist [employer] Cardiology 03/12/24 documented as of this encounter Additional Source Comments The information contained in this document represents components of the legal health record. It is not the complete legal health record.[facility]
--- OUTSIDE RECORDS SUMMARY | 2025-03-04 15:28 | XMS_ITS | Continuity of Care Document ---
Author Name Inocencio Worthington Address [address] [place] [address] Organization Unknown Address [address] [place] [address] Medications No known medications Problems No known problems
--- OUTSIDE RECORDS SUMMARY | 2025-03-04 15:28 | XMS_ITS | Encounter Summary ---
Author Organization [facility] Address [address] [facility] [address] [place] [address] Phone Care Team Providers Care Ornament Stitcher Name Role Phone Tennille Linton PERSONNEL SECURITY ASSISTANT Primary Care Provider + Anni Quiñonez PA Unavailable [phone] Encounter Details Date Type Department Care Team (Late st Contact Info) Description 03/24/2024 Procedure Pass [facility] Rad[facility] [address] [place] [address] Social History Tobacco Use Types Packs/Day Years [...] Description 03/23/2025 1:30 PM EDT Office Visit [facility] Center [address] [facility] [address], [place] [address] Daisy Diaz MD, MPH [address] [facility] [address], [place] [address] [email or web address] 04/01/2025 12:00 PM EDT Office Visit [facility], [facility] [address] [facility], 5th [place] [address] Daisy Diaz MD, MPH [address] [facility] [address] [place] [address] [email or web address] 04/01/2025 12:00 PM EDT Office Visit [facility], [facility] [address] [facility], 5th [place] [address] Michelle Shearer MD [address] [place] [address] [email or web address] 04/09/2025 11:30 AM EDT Office Visit [facility], [facility] [address] [facility], 11th [place] [address] Mary Ann Alford MD, FACS [address] [place] [address] [email or web address] documented as of this encounter Visit Diagnoses Not on filedocumented in this encounter Care Teams Ornament Stitcher Relationship Specialty Start Date End Date Tennille Linton NP [address] [place] [address] PCP - General Nurse Practitioner 08/30/23 Anni Quiñonez PA 200 [facility] 106 [place] [address] [email or web address] [email or web address] Airport Maintenance Laborer 08/30/23 shana myers Heart Vascular Program [facility] Dough Braker Cardiology 03/12/24 documented as of this encounter Additional Source Comments The information contained in this document represents components of the legal health record. It is not the complete legal health record.[facility]
--- OUTSIDE RECORDS SUMMARY | 2025-03-04 15:28 | XMS_ITS | Encounter Summary ---
Author Organization [facility] Address [address] [address] Phone Care Team Providers Care Bird Tender Name Role Phone Tennille Linton Sloane NATHAN Primary Care Provider + Reason for Visit * Reason Comments Med Refill Encounter Details Date Type Department Care Team (Late st Contact Info) Description 06/20/2023 Refill [facility] [place], [address] [facility] [place] [address] Andrey Phan MD [address] [place] [address] [place] [address] Social History Tobacco Use Types [...] Visit [facility] [address] [facility] [place] [address] Andrey Phan MD [address] [facility] [place] [address] documented as of this encounter Visit Diagnoses Not on filedocumented in this encounter Care Teams Bird Tender Relationship Specialty Start Date End Date Tennille Linton NP [address] [place] [phone] PCP - General Nurse Practitioner 08/07/23 documented as of this encounter
--- OUTSIDE RECORDS SUMMARY | 2025-03-04 15:29 | XMS_ITS | Encounter Summary ---
Author Organization [facility] Address [address] [place] [address] Care Team Providers Care Shake Out Worker Name Role Phone Michelle Rucker MD Primary Care Provider + Encounter Details Date Type Department Care Team (Late st Contact Info) Description 06/03/2024 Lab Requisition [facility] [address] [place] [address] Michelle Rucker MD [address] [phone] Local infection of the skin and subcutaneous [...] Comprehensive metabolic panel (06/03/2024 5:20 AM EST) [facility] Signature Sodium 139 133 - 145 mmol/L LAB CHEMISTRY METHOD 06/03/2024 11:50 AM EST [facility] Potassium 4.2 3.5 - 5.5 mmol/L LAB CHEMISTRY METHOD 06/03/2024 11:50 AM [facility] Chloride 106 96 - 110 mmol/L LAB CHEMISTRY METHOD 06/03/2024 11:50 AM [facility] CO2 24 21 - 32 mmol/L LAB CHEMISTRY METHOD 06/03/2024 11:50 AM [facility] Anion Gap 9 3 - 11 LAB CHEMISTRY METHOD 06/03/2024 11:50 AM [facility] Glucose 59(L) 70 - 100 mg/dL LAB CHEMISTRY METHOD 06/03/2024 11:50 AM [facility] BUN 34(H) 5 - 25 mg/dL LAB CHEMISTRY METHOD 06/03/2024 11:50 AM [facility] Creatinine 2.50(H) 0.70 - 1.30 mg/dL LAB CHEMISTRY METHOD 06/03/2024 11:50 AM [facility] eGFR 28(L) >=60 mL/min/1. 73m2 LAB CHEMISTRY METHOD 06/03/2024 11:50 AM [facility] Comment:Calculation based on the Chronic Kidney Disease Epidemiology Collaboration (CKD-EPI) equation refit without adjustment for race. BUN/Creatinine Ratio 13.6 LAB CHEMISTRY METHOD 06/03/2024 11:50 AM [facility] Calcium 9.9 8.5 - 10.5 mg/dL LAB CHEMISTRY METHOD 06/03/2024 11:50 AM [facility] AST (SGOT) 15 10 - 42 unit/L LAB CHEMISTRY METHOD 06/03/2024 11:50 AM [facility] ALT (SGPT) 10 10 - 60 unit/L LAB CHEMISTRY METHOD 06/03/2024 11:50 AM [facility] Alkaline Phosphatase 56 42 - 121 unit/L LAB CHEMISTRY METHOD 06/03/2024 11:50 AM [facility] Total Protein 6.6 6.0 - 8.0 g/dL LAB CHEMISTRY METHOD 06/03/2024 11:50 AM EST [facility] Albumin 3.1(L) 3.2 - 5.0 g/dL LAB CHEMISTRY METHOD 06/03/2024 11:50 AM [facility] Total Bilirubin 0.4 0.0 - 1.4 mg/dL LAB CHEMISTRY METHOD 06/03/2024 11:50 AM [facility] Blood Venous blood specimen / Unknown Venipuncture / Unknown 06/03/2024 5:20 AM EST 06/03/2024 10:18 AM EST us Michelle Rucker MD LAB BLOOD ORDERABLES Fin al Result [facility] [address] [place] [address], [place] [phone] * (ABNORMAL) Complete blood count (06/03/2024 5:20 AM EST) WBC 4.9 4.8 - 10.8 K/mcL LAB HEMETOLOGY METHOD 06/03/2024 11:05 AM [facility] RBC 4.40(L) 4.50 - 5.50 M/mcL LAB HEMETOLOGY METHOD 06/03/2024 11:05 AM [facility] Hemoglobin 11.4(L) 13.5 - 17.5 g/dL LAB HEMETOLOGY METHOD 06/03/2024 11:05 AM [facility] Hematocrit 36.6(L) 42.0 - 54.0 % LAB HEMETOLOGY METHOD 06/03/2024 11:05 AM [facility] MCV 83.9 79.0 - 98.0 FL LAB HEMETOLOGY METHOD 06/03/2024 11:05 AM [facility] MCH 26.1(L) 27.0 - 32.0 pcg LAB HEMETOLOGY METHOD 06/03/2024 11:05 AM [facility] MCHC 31.1(L) 32.0 - 37.0 g/dL LAB HEMETOLOGY METHOD 06/03/2024 11:05 AM EST [facility] RDW 13.9 11.0 - 15.0 % LAB HEMETOLOGY METHOD 06/03/2024 11:05 AM [facility] Platelets 157 130 - 400 K/mcL LAB HEMETOLOGY METHOD 06/03/2024 11:05 AM [facility] MPV 11.5(H) 7.0 - 11.0 FL LAB HEMETOLOGY METHOD 06/03/2024 11:05 AM EST [facility] NRBC 0.0 <1.0 % LAB HEMETOLOGY METHOD 06/03/2024 11:05 AM [facility] NRBC Absolute 0.00 <0.10 K/mcL LAB HEMETOLOGY METHOD 06/03/2024 11:05 AM [facility] Blood Venous blood specimen / Unknown Venipuncture / Unknown 06/03/2024 5:20 AM EST 06/03/2024 10:18 AM EST Michelle Rucker MD LAB BLOOD ORDERABLES Fin al Result [facility] [address] [place] [address], documented in this encounter Visit Diagnoses Diagnosis Local infection of the skin and subcutaneous tissue, unspecified documented in this encounter Additional Health Concerns Infection Onset Date Last Indicated Resolved Time C. difficile Rule-Out 08/14/2024 08/13/20242024 11:06 AM EST MDRO (other) 12/15/2024 12/15/2024 documented as of this encounter Care Teams Shake Out Worker Relationship Specialty Start Date End Date Michelle Rucker MD [address] [address] PCP - General Family Medicine 05/06/24 documented as of this encounter
--- OUTSIDE RECORDS SUMMARY | 2025-03-04 15:29 | XMS_ITS | Encounter Summary ---
Author Organization [facility] Address [address] [place] [address] Encounters * CPT with Inocencio Worthington at [facility] on 2025-01-01 { reasonForRequest : Pt's sister Leatha reporting UTI , patientReports&qu ot;: , denies :[ Unable to void greater than 5 hours , Erectionthat will not go away after 2 hours , Fall or trauma that results in urinary incontinencein the setting of pain , Fall or injury that results in incontinence in the absence of pain , Lower back pain either unilateral or bilateral, unable to void, painful urination -hematuria ], chiefComplaints : Urinary Symptoms , pmh : Organ T ransplant, Hypertension, Diabetes Mellitus Type 2, Hyperlipidemia, Stroke , allergies": Dilaudid, Oxycodone, Percocet , otherAllergies :null, painAssessment&quo t;: , visitOutcome : , additionalComments : 69 y.o male complains of Urinary Symptoms\nPer sister, Finished Cefpodoxime for UTI on Saturday. Symptoms worsening since Saturday. Sister states he is cognitively and physically deteriorating. Patient is weak, decreased appetite and nausea. No fever. Urine was dark and cloudy yesterday. Patient has increased fluid intake and urine is bundle sorter today. Patient has a catheter for urinary. Has an appt at the end of the month to trial removing catheter. \nI provided information on the mobile health provider respon se time and advised the patient and/or caregiver to monitor reported signs and symptoms. I discussed the warning signs of when to seek emergency care. } 69 year-old male complaining of continued malaise and mildly altered mental status over the last month due to multiple UTIs is on fourth course of treatment including Oxidine times two Augmentin and cephalexin. Sister believes he is still having UTI issues and notes. He is weaker than usual and isn???t not able to hold a pen steady today . Patient easily arousable.and smiling. 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 Your dipstick was positive for leukocytes contacted Dr. Reddy who advised because of kidney transplant that his renal team should do the prescribing sistercalled renal team and they called in prescription of Levaquin for him to their pharmacy and she wason her way to pick it up. Patient smiled and said thank you for the visit. Patient in no distress. ORAL_MEDICATION, EKG, POC_BLOODWORK, GLUCOSE Written by Inocencio Worthington on 2025-01-01
--- OUTSIDE RECORDS SUMMARY | 2025-03-04 15:29 | XMS_ITS | Encounter Summary ---
Author Organization [facility], Address [address] [place] [address] Phone Care Team Providers Care Loss Prevention Investigator Name Role Phone Ebony Lintonher Sloaen NATHAN Primary Care Provider + Reason for Visit * Reason Comments Med Refill Encounter Details Date Type Department Care Team (Late st Contact Info) Description 05/12/2020 Refill [facility] [address] [place] [address] Denise Isbell PA [address] [place] [address] [place] [address] Social History Tobacco Use Types Packs/Day Years [...] Visit [facility] [address] [place] [phone] Andrey Phan MD [address] [place] [address] documented as of this encounter Visit Diagnoses Not on filedocumented in this encounter Care Teams Loss Prevention Investigator Relationship Specialty Start Date End Date Tennille Linton NP [address] [place] [phone] PCP - General Nurse Practitioner 08/07/23 documented as of this encounter
--- OUTSIDE RECORDS SUMMARY | 2025-03-04 15:29 | XMS_ITS | Encounter Summary ---
Author Organization [facility], Address [address] [address] Phone Care Team Providers Care Cold Water Machine Operator Name Role Phone Tennille Linton Sloane NATHAN Primary Care Provider + Reason for Visit * Reason Comments Med Refill Encounter Details Date Type Department Care Team (Late st Contact Info) Description 06/13/2020 Refill [facility] [place] [address] [place] [address] Denise Isbell PA [address] [place] [address] [place] [address] Social History Tobacco Use Types [...] Visit [facility] [place] [address] [place] [phone] Andrey Phan MD [address] [place] [phone] documented as of this encounter Visit Diagnoses Not on filedocumented in this encounter Care Teams Cold Water Machine Operator Relationship Specialty Start Date End Date Tennille Linton NP [address] [place] [phone] PCP - General Nurse Practitioner 08/07/23 documented as of this encounter
--- OUTSIDE RECORDS SUMMARY | 2025-03-04 15:29 | XMS_ITS | Encounter Summary ---
Author Organization [facility] Address [address] [place] [address] Care Team Providers Care News Broadcaster Name Role Phone Michelle Rucker MD Primary Care Provider + Encounter Details Date Type Department Care Team (Late st Contact Info) Description 04/29/2024 Lab Requisition [facility] - Main Lab [address] [place] [address] Michelle Rucker MD [address] [facility] [address] [place], [place] [phone] Urinary tract infection, site not specified Social [...] and culture (04/29/2024 8:00 AM EST) Specific [place] Urine 1.012 1.003 - 1.030 LAB URINALYSIS - AUTOMATED METHOD 04/29/2024 2:52 PM [facility] pH, Urine 6.0 5.0 - 8.0 pH LAB URINALYSIS - AUTOMATED METHOD 04/29/2024 2:52 PM [facility] Leukocytes, Urine Trace(A) Negative LAB URINALYSIS - AUTOMATED METHOD 04/29/2024 2:52 PM [facility] Nitrite, Urine Negative Negative LAB URINALYSIS - AUTOMATED METHOD 04/29/2024 2:52 PM [facility] Protein, Urine Trace <=Trace mg/dL LAB URINALYSIS - AUTOMATED METHOD 04/29/2024 2:52 PM [facility] Glucose, Urine 250(A) Negative mg/dL LAB URINALYSIS - AUTOMATED METHOD 04/29/2024 2:52 PM [facility] Ketones, Urine Negative Negative mg/dL LAB URINALYSIS - AUTOMATED METHOD 04/29/2024 2:52 PM [facility] Urobilinogen, Urine 0.2 0.2 - 1.0 mg/dL LAB URINALYSIS - AUTOMATED METHOD 04/29/2024 2:52 PM [facility] Bilirubin, Urine Negative Negative LAB URINALYSIS - AUTOMATED METHOD 04/29/2024 2:52 PM [facility] Blood, Urine Negative Negative LAB URINALYSIS - AUTOMATED METHOD 04/29/2024 2:52 PM [facility] RBC, Urine 2.3 0 - 4 /HPF LAB URINALYSIS - AUTOMATED METHOD 04/29/2024 2:52 PM [facility] WBC, Urine 2.8 0 - 4 /HPF LAB URINALYSIS - AUTOMATED METHOD 04/29/2024 2:52 PM [facility] Squamous Epithelial, Urine 6 0 - 60 /LPF LAB URINALYSIS - AUTOMATED METHOD 04/29/2024 2:52 PM [facility] Bacteria, Urine Negative Negative /HPF LAB URINALYSIS - AUTOMATED METHOD 04/29/2024 2:52 PM EST [facility] Hyaline Casts, Urine 0.0 0 - 3 /LPF LAB URINALYSIS - AUTOMATED METHOD 04/29/2024 2:52 PM EST [facility] Urine Urine specimen obtained by clean catch procedure / Unknown 04/29/2024 8:00 AM EST 04/29/2024 2:32 PM EST Michelle Rucker MD LAB URINE ORDERABLES Fin al Result Performing Organization Address [facility] Co de Phone Number [facility] [address] [place] [address], [place] [phone] * (ABNORMAL) Culture urine (04/29/2024 8:00 AM EST) Culture, Urine 10,000-49,0 00 CFU/mL Yolande albicans/du bliniensis( A) 05/01/2024 2:22 PM EST [facility] Comment: The organism value for this result has been updated. These results have been appended to the previously preliminary verified report. Urine Urine specimen obtained by clean catch procedure / Unknown 04/29/2024 8:00 AM EST 04/29/2024 2:32 PM EST Michelle Rucker MD LAB MICROBIOLOGY - GENER AL ORDERABLES Final Result Performing Organization Address [facility]/ZIP Co de Phone Number [facility] [address] [place] [address], [place] [phone] documented in this encounter Visit Diagnoses Diagnosis Urinary tract infection, site not specified documented in this encounter Additional Health Concerns Infection Onset Date Last Indicated Resolved Time C. difficile Rule-Out 08/14/2024 08/13/20242024 11:06 AM EST MDRO (other) 12/15/2024 12/15/2024 documented as of this encounter Care Teams News Broadcaster Relationship Specialty Start Date End Date Michelle Rucker MD [address] [phone] PCP - General Family Medicine 05/06/24 documented as of this encounter
--- OUTSIDE RECORDS SUMMARY | 2025-03-04 15:29 | XMS_ITS | Encounter Summary ---
Author Organization [facility] Address [address] [place] [phone] Care Team Providers Care Plant Reliability Engineer Name Role Phone Michelle Rucker MD Primary Care Provider + Encounter Details Date Type Department Care Team (Late st Contact Info) Description 05/13/2024 Lab Requisition [facility] - Main Lab [address] [facility] [place] [address] Michelle Rucker MD [address] [phone] Heart failure, unspecified (CMS/HCC V24, CMS/HCC V28); [...] mmol/L LAB CHEMISTRY METHOD 05/13/2024 12:10 PM [facility] Potassium 4.6 3.5 - 5.5 mmol/L LAB CHEMISTRY METHOD 05/13/2024 12:10 PM [facility] Chloride 105 96 - 110 mmol/L LAB CHEMISTRY METHOD 05/13/2024 12:10 PM [facility] CO2 23 21 - 32 mmol/L LAB CHEMISTRY METHOD 05/13/2024 12:10 PM [facility] Anion Gap 10 3 - 11 LAB CHEMISTRY METHOD 05/13/2024 12:10 PM [facility] Glucose 144(H) 70 - 100 mg/dL LAB CHEMISTRY METHOD 05/13/2024 12:10 PM [facility] BUN 30(H) 5 - 25 mg/dL LAB CHEMISTRY METHOD 05/13/2024 12:10 PM [facility] Creatinine 2.06(H) 0.70 - 1.30 mg/dL LAB CHEMISTRY METHOD 05/13/2024 12:10 PM [facility] eGFR 35(L) >=60 mL/min/1. 73m2 LAB CHEMISTRY METHOD 05/13/2024 12:10 PM [facility] Comment:Calculation based on the Chronic Kidney Disease Epidemiology Collaboration (CKD-EPI) equation refit without adjustment for race. BUN/Creatinine Ratio 14.6 LAB CHEMISTRY METHOD 05/13/2024 12:10 PM [facility] Calcium 9.8 8.5 - 10.5 mg/dL LAB CHEMISTRY METHOD 05/13/2024 12:10 PM [facility] AST (SGOT) 14 10 - 42 unit/L LAB CHEMISTRY METHOD 05/13/2024 12:10 PM [facility] ALT (SGPT) 14 10 - 60 unit/L LAB CHEMISTRY METHOD 05/13/2024 12:10 PM [facility] Alkaline Phosphatase 54 42 - 121 unit/L LAB CHEMISTRY METHOD 05/13/2024 12:10 PM [facility] Total Protein 6.5 6.0 - 8.0 g/dL LAB CHEMISTRY METHOD 05/13/2024 12:10 PM [facility] Albumin 2.8(L) 3.2 - 5.0 g/dL LAB CHEMISTRY METHOD 05/13/2024 12:10 PM [facility] Total Bilirubin 0.3 0.0 - 1.4 mg/dL LAB CHEMISTRY METHOD 05/13/2024 12:10 PM [facility] Blood Venous blood specimen / Unknown Venipuncture / Unknown 05/13/2024 6:07 AM EST 05/13/2024 8:50 AM EST Michelle Rucker MD LAB BLOOD ORDERABLES Fin al Result [facility] [address] [place] [address], * (ABNORMAL) Complete blood count (05/13/2024 6:07 AM EST) WBC 8.3 4.8 - 10.8 K/mcL LAB HEMETOLOGY METHOD 05/13/2024 10:51 AM [facility] RBC 4.10(L) 4.50 - 5.50 M/mcL LAB HEMETOLOGY METHOD 05/13/2024 10:51 AM [facility] Hemoglobin 10.8(L) 13.5 - 17.5 g/dL LAB HEMETOLOGY METHOD 05/13/2024 10:51 AM [facility] Hematocrit 34.5(L) 42.0 - 54.0 % LAB HEMETOLOGY METHOD 05/13/2024 10:51 AM [facility] MCV 85.2 79.0 - 98.0 FL LAB HEMETOLOGY METHOD 05/13/2024 10:51 AM [facility] MCH 26.7(L) 27.0 - 32.0 pcg LAB HEMETOLOGY METHOD 05/13/2024 10:51 AM [facility] MCHC 31.3(L) 32.0 - 37.0 g/dL LAB HEMETOLOGY METHOD 05/13/2024 10:51 AM [facility] RDW 13.0 11.0 - 15.0 % LAB HEMETOLOGY METHOD 05/13/2024 10:51 AM [facility] Platelets 250 130 - 400 K/mcL LAB HEMETOLOGY METHOD 05/13/2024 10:51 AM [facility] MPV 10.7 7.0 - 11.0 FL LAB HEMETOLOGY METHOD 05/13/2024 10:51 AM [facility] NRBC 0.0 <1.0 % LAB HEMETOLOGY METHOD 05/13/2024 10:51 AM [facility] NRBC Absolute 0.00 <0.10 K/mcL LAB HEMETOLOGY METHOD 05/13/2024 10:51 AM [facility] Blood Venous blood specimen / Unknown Venipuncture / Unknown 05/13/2024 6:07 AM EST 05/13/2024 8:50 AM EST us Michelle Rucker MD LAB BLOOD ORDERABLES Fin al Result [facility] [address] [place] [address], documented in this encounter Visit Diagnoses Diagnosis Heart failure, unspecified (CMS/HCC V24, [facility] V28) Heart failure, unspecified Type 1 diabetes mellitus with diabetic neuropathy, unspecified ([facility] V24, [facility] V28) Unspecified sequelae of unspecified cerebrovascular disease Kidney transplant status 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 difficile Rule-Out 08/14/2024 08/13/20242024 11:06 AM EST MDRO (other) 12/15/2024 12/15/2024 documented as of this encounter Care Teams Plant Reliability Engineer Relationship Specialty Start Date End Date Michelle Rucker MD [address] [place] [address] PCP - General Family Medicine 05/06/24 documented as of this encounter
--- OUTSIDE RECORDS SUMMARY | 2025-03-04 15:29 | XMS_ITS | Encounter Summary ---
Author Organization [facility] Address [address] [place] [phone] Care Team Providers Care Tray Casting Machine Operator Name Role Phone Michelle Rucker MD Primary Care Provider + Encounter Details Date Type Department Care Team (Late st Contact Info) Description 06/26/2024 Lab Requisition [facility] - Main Lab [address] [facility] [place] [address] Michelle Rucker MD [address] [phone] Hyperlipidemia, unspecified; Heart failure, unspecified (CMS/HCC V24, [...] documented as of this encounter Care Teams Tray Casting Machine Operator Relationship Specialty Start Date End Date Michelle Rucker MD [address] [address] PCP - General Family Medicine 05/06/24 documented as of this encounter
--- OUTSIDE RECORDS SUMMARY | 2025-03-04 15:29 | XMS_ITS | Encounter Summary ---
Author Organization [facility] Address [address] [place] [address] Care Team Providers Care Oval Or Circular Glass Cutter Name Role Phone Michelle Rucker MD Primary Care Provider + Encounter Details Date Type Department Care Team (Late st Contact Info) Description 05/08/2024 Lab Requisition [facility] [address] [place] [address] Michelle Rucker MD [address] [phone] Kidney transplant status; Squamous cell carcinoma of [...] LAB CHEMISTRY METHOD 05/08/2024 9:21 AM EST [facility] Potassium 4.4 3.5 - 5.5 mmol/L LAB CHEMISTRY METHOD 05/08/2024 9:21 AM [facility] Chloride 105 96 - 110 mmol/L LAB CHEMISTRY METHOD 05/08/2024 9:21 AM [facility] CO2 23 21 - 32 mmol/L LAB CHEMISTRY METHOD 05/08/2024 9:21 AM [facility] Anion Gap 8 3 - 11 LAB CHEMISTRY METHOD 05/08/2024 9:21 AM [facility] Glucose 183(H) 70 - 100 mg/dL LAB CHEMISTRY METHOD 05/08/2024 9:21 AM [facility] BUN 27(H) 5 - 25 mg/dL LAB CHEMISTRY METHOD 05/08/2024 9:21 AM [facility] Creatinine 1.82(H) 0.70 - 1.30 mg/dL LAB CHEMISTRY METHOD 05/08/2024 9:21 AM [facility] eGFR 40(L) >=60 mL/min/1. 73m2 LAB CHEMISTRY METHOD 05/08/2024 9:21 AM [facility] Comment:Calculation based on the Chronic Kidney Disease Epidemiology Collaboration (CKD-EPI) equation refit without adjustment for race. BUN/Creatinine Ratio 14.8 LAB CHEMISTRY METHOD 05/08/2024 9:21 AM [facility] Calcium 9.6 8.5 - 10.5 mg/dL LAB CHEMISTRY METHOD 05/08/2024 9:21 AM [facility] AST (SGOT) 20 10 - 42 unit/L LAB CHEMISTRY METHOD 05/08/2024 9:21 AM [facility] ALT (SGPT) 10 10 - 60 unit/L LAB CHEMISTRY METHOD 05/08/2024 9:21 AM [facility] Alkaline Phosphatase 52 42 - 121 unit/L LAB CHEMISTRY METHOD 05/08/2024 9:21 AM [facility] Total Protein 6.4 6.0 - 8.0 g/dL LAB CHEMISTRY METHOD 05/08/2024 9:21 AM [facility] Albumin 2.7(L) 3.2 - 5.0 g/dL LAB CHEMISTRY METHOD 05/08/2024 9:21 AM [facility] Total Bilirubin 0.5 0.0 - 1.4 mg/dL LAB CHEMISTRY METHOD 05/08/2024 9:21 AM [facility] Blood Venous blood specimen / Unknown Venipuncture / Unknown 05/08/2024 6:16 AM EST 05/08/2024 8:37 AM EST us Michelle Rucker MD LAB BLOOD ORDERABLES Fin al Result [facility] [address] [place] [address], * (ABNORMAL) Complete blood count (05/08/2024 6:16 AM EST) Pathologist [facility] WBC 9.8 4.8 - 10.8 K/mcL LAB HEMETOLOGY METHOD 05/08/2024 8:53 AM [facility] RBC 4.00(L) 4.50 - 5.50 M/[facility] LAB HEMETOLOGY METHOD 05/08/2024 8:53 AM [facility] Hemoglobin 11.0(L) 13.5 - 17.5 g/dL LAB HEMETOLOGY METHOD 05/08/2024 8:53 AM [facility] Hematocrit 34.0(L) 42.0 - 54.0 % LAB HEMETOLOGY METHOD 05/08/2024 8:53 AM [facility] MCV 85.4 79.0 - 98.0 FL LAB HEMETOLOGY METHOD 05/08/2024 8:53 AM [facility] MCH 27.6 27.0 - 32.0 pcg LAB HEMETOLOGY METHOD 05/08/2024 8:53 AM EST [facility] MCHC 32.4 32.0 - 37.0 g/dL LAB HEMETOLOGY METHOD 05/08/2024 8:53 AM [facility] RDW 12.8 11.0 - 15.0 % LAB HEMETOLOGY METHOD 05/08/2024 8:53 AM [facility] Platelets 235 130 - 400 K/mcL LAB HEMETOLOGY METHOD 05/08/2024 8:53 AM [facility] MPV 10.8 7.0 - 11.0 FL LAB HEMETOLOGY METHOD 05/08/2024 8:53 AM [facility] NRBC 0.0 <1.0 % LAB HEMETOLOGY METHOD 05/08/2024 8:53 AM [facility] NRBC Absolute 0.00 <0.10 K/mcL LAB HEMETOLOGY METHOD 05/08/2024 8:53 AM [facility] Blood Venous blood specimen / Unknown Venipuncture / Unknown 05/08/2024 6:16 AM EST 05/08/2024 8:37 AM EST Michelle Rucker MD LAB BLOOD ORDERABLES Fin al Result Performing Organization Address City/State/[facility] Co de Phone Number [facility] [address] [place] [address], documented in this encounter Visit Diagnoses Diagnosis Kidney transplant status 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 difficile Rule-Out 08/14/2024 08/13/20242024 11:06 AM EST MDRO (other) 12/15/2024 12/15/2024 documented as of this encounter Care Teams Oval Or Circular Glass Cutter Relationship Specialty Start Date End Date Michelle Rucker MD [address] [place] [phone] PCP - General Family Medicine 05/06/24 documented as of this encounter
--- OUTSIDE RECORDS SUMMARY | 2025-03-04 15:29 | XMS_ITS | Encounter Summary ---
Author Organization [facility] Address [address] [place] [phone] Care Team Providers Care Poultry Inseminator Name Role Phone Michelle Rucker MD Primary Care Provider + Encounter Details Date Type Department Care Team (Late st Contact Info) Description 05/07/2024 Lab Requisition [facility] - Main Lab [address] [place] [address] Michelle Rucker MD [address] [phone] Urinary tract infection, site not specified Social [...] reflex microscopic (05/06/2024 11:00 AM EST) Specific [place] Urine 1.015 1.003 - 1.030 LAB URINALYSIS - AUTOMATED METHOD 05/07/2024 11:00 AM [facility] pH, Urine 5.5 5.0 - 8.0 pH LAB URINALYSIS - AUTOMATED METHOD 05/07/2024 11:00 AM [facility] Leukocytes, Urine Trace(A) Negative LAB URINALYSIS - AUTOMATED METHOD 05/07/2024 11:00 AM [facility] Nitrite, Urine Negative Negative LAB URINALYSIS - AUTOMATED METHOD 05/07/2024 11:00 AM [facility] Protein, Urine 100(A) <=Trace mg/dL LAB URINALYSIS - AUTOMATED METHOD 05/07/2024 11:00 AM [facility] Glucose, Urine 500(A) Negative mg/dL LAB URINALYSIS - AUTOMATED METHOD 05/07/2024 11:00 AM [facility] Ketones, Urine Trace(A) Negative mg/dL LAB URINALYSIS - AUTOMATED METHOD 05/07/2024 11:00 AM [facility] Urobilinogen , Urine 0.2 0.2 - 1.0 mg/dL LAB URINALYSIS - AUTOMATED METHOD 05/07/2024 11:00 AM [facility] Bilirubin, Urine Negative Negative LAB URINALYSIS - AUTOMATED METHOD 05/07/2024 11:00 AM [facility] Blood, Urine Small(A) Negative LAB URINALYSIS - AUTOMATED METHOD 05/07/2024 11:00 AM [facility] RBC, Urine 2.6 0 - 4 /HPF LAB URINALYSIS - AUTOMATED METHOD 05/07/2024 11:00 AM [facility] WBC, Urine 20.3(H) 0 - 4 /HPF LAB URINALYSIS - AUTOMATED METHOD 05/07/2024 11:00 AM [facility] Squamous Epithelial, Urine 55 0 - 60 /LPF LAB URINALYSIS - AUTOMATED METHOD 05/07/2024 11:00 AM [facility] Bacteria, Urine Negative Negative /HPF LAB URINALYSIS - AUTOMATED METHOD 05/07/2024 11:00 AM EST [facility] Hyaline Casts, Urine 1.2 0 - 3 /LPF LAB URINALYSIS - AUTOMATED METHOD 05/07/2024 11:00 AM EST [facility] Yeast, Urine Present(A) None /HPF LAB URINALYSIS - AUTOMATED METHOD 05/07/2024 11:00 AM EST [facility] Urine Urine specimen obtained by clean catch procedure / Unknown 05/06/2024 11:00 AM EST 05/07/2024 9:55 AM EST us Michelle Rucker MD LAB URINE ORDERABLES Fin al Result [facility] [address] [place] [address], * (ABNORMAL) Culture urine (05/06/2024 11:00 AM EST) Culture, Urine 10,000-49,000 CFU/mL Klebsiella pneumoniae ssp pneumoniae(A) YENNIFER 05/09/2024 11:26 AM EST [facility] Comment: This is an edited result. Previous organism was Gram negative bacilli on 05/08/2024 at 0819 EST. Urine Urine specimen obtained by clean catch procedure / Unknown 05/06/2024 11:00 AM EST 05/07/2024 9:55 AM EST Narrative [facility] - 05/09/2024 11:26 AM EST Normal [...] pneumoniae Trimethoprim/Sulfamethoxazo le YENNIFER <=20 ug/ml: Susceptible Michelle Rucker MD LAB MICROBIOLOGY - [place] AL ORDERABLES Final Result [facility] ([facility]) [facility] [address] [place] [address], documented in this encounter Visit Diagnoses Diagnosis Urinary tract infection, site not specified documented in this encounter Additional Health Concerns Infection Onset Date Last Indicated Resolved Time C. difficile Rule-Out 08/14/2024 08/13/20242024 11:06 AM EST MDRO (other) 12/15/2024 12/15/2024 documented as of this encounter Care Teams Poultry Inseminator Relationship Specialty Start Date End Date Michelle Rucker MD [address] [place] [phone] PCP - General Family Medicine 05/06/24 documented as of this encounter
--- OUTSIDE RECORDS SUMMARY | 2025-03-04 15:29 | XMS_ITS | Encounter Summary ---
Author Organization [facility] Address [address] [place] [address] Care Team Providers Care Errand Runner Name Role Phone Michelle Rucker MD Primary Care Provider + Encounter Details Date Type Department Care Team (Late st Contact Info) Description 05/18/[address] [facility] - Main Lab 299 [facility] [place] [address] Michelle Rucker MD [address] [phone] Kidney transplant status; Squamous cell carcinoma of [...] [facility] Comment: Additional Information: Toxic Level > 26 ng/mL Organ Post Transp. (months) Trough Level (ng/mL) Kidney Up to 3 7.0 - 20.0 >3 5.0 - 15.0 Heart Up to 3 10.0 - 20.0 >3 5.0 - 15.0 Liver Up to 12 5.0 - 20.0 Tacrolimus determined by a [...] investigational or for research. Test performed at [facility], [address], [place] [address] Brittanie Horan MD, PhD - Clinic Nurse Blood Venous blood specimen / Unknown Venipuncture / Unknown 05/19/2024 5:08 AM EST 05/19/2024 9:54 AM EST Michelle Rucker MD LAB BLOOD ORDERABLES Fin al Result [facility] [address] [place] [address] * (ABNORMAL) Comprehensive metabolic panel (05/19/2024 5:08 AM EST) Sodium 141 133 - 145 mmol/L LAB CHEMISTRY METHOD 05/19/2024 10:42 AM EST [facility] Potassium 4.9 3.5 - 5.5 mmol/L LAB CHEMISTRY METHOD 05/19/2024 10:42 AM EST [facility] Chloride 109 96 - 110 mmol/L LAB CHEMISTRY METHOD 05/19/2024 10:42 AM EST [facility] CO2 26 21 - 32 mmol/L LAB CHEMISTRY METHOD 05/19/2024 10:[address] [facility] Anion Gap 6 3 - 11 LAB CHEMISTRY METHOD 05/19/2024 10:[address] [facility] Glucose 115(H) 70 - 100 mg/dL LAB CHEMISTRY METHOD 05/19/2024 10:[address] [facility] BUN 28(H) 5 - 25 mg/dL LAB CHEMISTRY METHOD 05/19/2024 10:[address] [facility] Creatinine 2.12(H) 0.70 - 1.30 mg/dL LAB CHEMISTRY METHOD 05/19/2024 10:[address] [facility] eGFR 34(L) >=60 mL/min/1. 73m2 LAB CHEMISTRY METHOD 05/19/2024 10:[address] [facility] Comment:Calculation based on the Chronic Kidney Disease Epidemiology Collaboration (CKD-EPI) equation refit without adjustment for race. BUN/Creatinine Ratio 13.2 LAB CHEMISTRY METHOD 05/19/2024 10:[address] [facility] Calcium 9.6 8.5 - 10.5 mg/dL LAB CHEMISTRY METHOD 05/19/2024 10:[address] [facility] AST (SGOT) 25 10 - 42 unit/L LAB CHEMISTRY METHOD 05/19/2024 10:[address] [facility] ALT (SGPT) 14 10 - 60 unit/L LAB CHEMISTRY METHOD 05/19/2024 10:[address] [facility] Alkaline Phosphatase 58 42 - 121 unit/L LAB CHEMISTRY METHOD 05/19/2024 10:[address] [facility] Total Protein 6.8 6.0 - 8.0 g/dL LAB CHEMISTRY METHOD 05/19/2024 10:[address] [facility] Albumin 3.1(L) 3.2 - 5.0 g/dL LAB CHEMISTRY METHOD 05/19/2024 10:[address] [facility] Total Bilirubin 0.4 0.0 - 1.4 mg/dL LAB CHEMISTRY METHOD 05/19/2024 10:[address] 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 difficile Rule-Out 08/14/2024 08/13/20242024 11:06 AM EST MDRO (other) 12/15/2024 12/15/2024 documented as of this encounter Care Teams Errand Runner Relationship Specialty Start Date End Date Michelle Rucker MD [address] [place] [phone] PCP - General Family Medicine 05/06/24 documented as of this encounter
--- OUTSIDE RECORDS SUMMARY | 2025-03-04 15:29 | XMS_ITS | Continuity of Care Document ---
Author Name Inocencio Worthington Address [address] [place] [id number] Organization Unknown Address [address] [place] [address] Medications No known medications Problems No known problems
--- OUTSIDE RECORDS SUMMARY | 2025-03-04 15:29 | XMS_ITS | Encounter Summary ---
Author Organization [facility] Address [address] [place] [address] Care Team Providers Care Inorganic Chemist Name Role Phone Michelle Rucker MD Primary Care Provider + Encounter Details Date Type Department Care Team (Late st Contact Info) Description 05/08/2024 Lab Requisition [facility] - Main Lab 299 [facility] [place] [address] Michelle Rucker MD [address] [phone] Kidney transplant status; Squamous cell carcinoma of [...] developed and the performance characteristics determined by [facility]. This confirmation testing has not been cleared or approved by the FDA. The laboratory is regulated under CLIA as qualified to perform high-complexity testing. This test is used for patient testing purposes. It should not be regarded as investigational or for research. Test performed at [facility], [address], [place] [address] Brittanie Horan MD, PhD - Heel Gummer Blood Venous blood specimen / Unknown Venipuncture / Unknown 05/11/2024 6:37 AM EST 05/11/2024 9:28 AM EST Michelle Rucker MD LAB BLOOD ORDERABLES Fin al Result [facility] [address] [place] [address] * (ABNORMAL) Comprehensive metabolic panel (05/11/2024 6:37 AM EST) Sodium 140 133 - 145 mmol/L LAB CHEMISTRY METHOD 05/11/2024 10:49 AM EST [facility] Potassium 4.5 3.5 - 5.5 mmol/L LAB CHEMISTRY METHOD 05/11/2024 10:49 AM EST [facility] Chloride 106 96 - 110 mmol/L LAB CHEMISTRY METHOD 05/11/2024 10:49 AM EST [facility] CO2 27 21 - 32 mmol/L LAB CHEMISTRY METHOD 05/11/2024 10:49 AM [facility] Anion Gap 7 3 - 11 LAB CHEMISTRY METHOD 05/11/2024 10:49 AM [facility] Glucose 113(H) 70 - 100 mg/dL LAB CHEMISTRY METHOD 05/11/2024 10:49 AM [facility] BUN 32(H) 5 - 25 mg/dL LAB CHEMISTRY METHOD 05/11/2024 10:49 AM [facility] Creatinine 2.00(H) 0.70 - 1.30 mg/dL LAB CHEMISTRY METHOD 05/11/2024 10:49 AM [facility] eGFR 36(L) >=60 mL/min/1. 73m2 LAB CHEMISTRY METHOD 05/11/2024 10:49 AM [facility] Comment:Calculation based on the Chronic Kidney Disease Epidemiology Collaboration (CKD-EPI) equation refit without adjustment for race. BUN/Creatinine Ratio 16.0 LAB CHEMISTRY METHOD 05/11/2024 10:49 AM [facility] Calcium 10.0 8.5 - 10.5 mg/dL LAB CHEMISTRY METHOD 05/11/2024 10:49 AM [facility] AST (SGOT) 18 10 - 42 unit/L LAB CHEMISTRY METHOD 05/11/2024 10:49 AM [facility] ALT (SGPT) 14 10 - 60 unit/L LAB CHEMISTRY METHOD 05/11/2024 10:49 AM [facility] Alkaline Phosphatase 56 42 - 121 unit/L LAB CHEMISTRY METHOD 05/11/2024 10:49 AM [facility] Total Protein 6.9 6.0 - 8.0 g/dL LAB CHEMISTRY METHOD 05/11/2024 10:49 AM [facility] Albumin 2.9(L) 3.2 - 5.0 g/dL LAB CHEMISTRY METHOD 05/11/2024 10:49 AM [facility] Total Bilirubin 0.3 0.0 - 1.4 mg/dL LAB CHEMISTRY METHOD 05/11/2024 10:49 AM [facility] Blood Venous blood specimen / Unknown Venipuncture / Unknown 05/11/2024 6:37 AM EST 05/11/2024 9:28 AM EST us Michelle Rucker MD LAB BLOOD ORDERABLES Fin al Result [facility] ([facility]) [facility] [address] [place] [address], documented in this encounter Visit Diagnoses Diagnosis Kidney transplant status 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 difficile Rule-Out 08/14/2024 08/13/20242024 11:06 AM EST MDRO (other) 12/15/2024 12/15/2024 documented as of this encounter Care Teams Inorganic Chemist Relationship Specialty Start Date End Date Michelle Rucker MD [address] [place] [phone] PCP - General Family Medicine 05/06/24 documented as of this encounter
--- OUTSIDE RECORDS SUMMARY | 2025-03-04 15:29 | XMS_ITS | Encounter Summary ---
Author Organization [facility] Address [address] [place] [phone] Care Team Providers Care Stockbroker Name Role Phone Michelle Rucker MD Primary Care Provider + Encounter Details Date Type Department Care Team (Late st Contact Info) Description 07/02/2024 Lab Requisition [facility] - Main Lab 299 [facility] [place] [address] Michelle Rucker MD [address] [address] Heart failure, unspecified (CMS/HCC V24, CMS/HCC V28); [...] 25 hydroxy (07/02/2024 7:17 AM EST) Pathologist [facility] Vit D, 25-Hydroxy 48.1 30.0 - 80.0 ng/mL LAB CHEMISTRY METHOD 07/02/2024 12:28 PM EST [facility] Blood Venous blood specimen / Unknown Venipuncture / Unknown 07/02/2024 7:17 AM EST 07/02/2024 9:17 AM EST Michelle Rucker MD LAB BLOOD ORDERABLES Fin al Result Performing Organization Address City/[facility]/ZIP Co de Phone Number [facility] [address] [place] [address], [place] [phone] * Vitamin B12 (07/02/2024 7:17 AM EST) [facility] Vitamin B-12 757 250 - 900 pcg/mL LAB CHEMISTRY METHOD 07/02/2024 12:08 PM EST [facility] Blood Venous blood specimen / Unknown Venipuncture / Unknown 07/02/2024 7:17 AM EST 07/02/2024 9:17 AM EST Michelle Rucker MD LAB BLOOD ORDERABLES Fin al Result [facility] [address] [place] [address], [place] [phone] * Folate (07/02/2024 7:17 AM EST) Pathologist [facility] Folate 6.1 2.8 - 17.0 ng/ml LAB CHEMISTRY METHOD 07/02/2024 12:00 PM EST [facility] Blood Venous blood specimen / Unknown Venipuncture / Unknown 07/02/2024 7:17 AM EST 07/02/2024 9:17 AM EST Michelle Rucker MD LAB BLOOD ORDERABLES Fin al Result Performing Organization Address City/[facility]/ZIP Co de Phone Number [facility] [address] [place] [address], * Magnesium (07/02/2024 7:17 AM EST) Magnesium 2.2 1.9 - 2.6 mg/dL LAB CHEMISTRY METHOD 07/02/2024 11:44 AM EST [facility] Blood Venous blood specimen / Unknown Venipuncture / Unknown 07/02/2024 7:17 AM EST 07/02/2024 9:17 AM EST Michelle Rucker MD LAB BLOOD ORDERABLES Fin al Result Performing Organization Address [facility] Co de Phone Number [facility] [address] [place] [address], * (ABNORMAL) Thyroid stimulating hormone (07/02/2024 7:17 AM EST) TSH 6.64(H) 0.40 - 4.00 mcIU/mL LAB CHEMISTRY METHOD 07/02/2024 12:29 PM EST [facility] Blood Venous blood specimen / Unknown Venipuncture / Unknown 07/02/2024 7:17 AM EST 07/02/2024 9:17 AM EST Michelle Rucker MD LAB BLOOD ORDERABLES Fin al Result Performing Organization Address City/[facility]/ZIP Co de Phone Number [facility] [address] [place] [address], [place] [phone] * (ABNORMAL) Hemoglobin A1c (07/02/2024 7:17 AM EST) Hemoglobin A1C 8.4(H) <6.5 % LAB CHEMISTRY METHOD 07/02/2024 1:47 PM [facility] Mean Bld Glu Estim. 194 mg/dL LAB CHEMISTRY METHOD 07/02/2024 1:47 PM [facility] Blood Venous blood specimen / Unknown Venipuncture / Unknown 07/02/2024 7:17 AM EST 07/02/2024 9:17 AM EST us Michelle Rucker MD LAB BLOOD ORDERABLES Fin al Result [facility] [address] [place] [address], [place] [phone] * (ABNORMAL) Comprehensive metabolic panel (07/02/2024 7:17 AM EST) Sodium 130(L) 133 - 145 mmol/L LAB CHEMISTRY METHOD 07/02/2024 12:14 PM [facility] Potassium 4.8 3.5 - 5.5 mmol/L LAB CHEMISTRY METHOD 07/02/2024 12:14 PM [facility] Chloride 96 96 - 110 mmol/L LAB CHEMISTRY METHOD 07/02/2024 12:14 PM [facility] CO2 26 21 - 32 mmol/L LAB CHEMISTRY METHOD 07/02/2024 12:14 PM [facility] Anion Gap 8 3 - 11 LAB CHEMISTRY METHOD 07/02/2024 12:14 PM [facility] Glucose 452(HH) 70 - 100 mg/dL LAB CHEMISTRY METHOD 07/02/2024 12:14 PM [facility] BUN 31(H) 5 - 25 mg/dL LAB CHEMISTRY METHOD 07/02/2024 12:14 PM [facility] Creatinine 1.53(H) 0.70 - 1.30 mg/dL LAB CHEMISTRY METHOD 07/02/2024 12:14 PM [facility] eGFR 50(L) >=60 mL/min/1. 73m2 LAB CHEMISTRY METHOD 07/02/2024 12:14 PM [facility] Comment:Calculation based on the Chronic Kidney Disease Epidemiology Collaboration (CKD-EPI) equation refit without adjustment for race. BUN/Creatinine Ratio 20.3 LAB CHEMISTRY METHOD 07/02/2024 12:14 PM [facility] Calcium 9.8 8.5 - 10.5 mg/dL LAB CHEMISTRY METHOD 07/02/2024 12:14 PM [facility] AST (SGOT) 16 10 - 42 unit/L LAB CHEMISTRY METHOD 07/02/2024 12:14 PM [facility] ALT (SGPT) 13 10 - 60 unit/L LAB CHEMISTRY METHOD 07/02/2024 12:14 PM [facility] Alkaline Phosphatase 84 42 - 121 unit/L LAB CHEMISTRY METHOD 07/02/2024 12:14 PM [facility] Total Protein 6.7 6.0 - 8.0 g/dL LAB CHEMISTRY METHOD 07/02/2024 12:14 PM [facility] Albumin 2.5(L) 3.2 - 5.0 g/dL LAB CHEMISTRY METHOD 07/02/2024 12:14 PM [facility] Total Bilirubin 0.5 0.0 - 1.4 mg/dL LAB CHEMISTRY METHOD 07/02/2024 12:14 PM [facility] Blood Venous blood specimen / Unknown Venipuncture / Unknown 07/02/2024 7:17 AM EST 07/02/2024 9:17 AM EST us Michelle Rucker MD LAB BLOOD ORDERABLES Fin al Result [facility] [address] [place] [address], * (ABNORMAL) Complete blood count (07/02/2024 7:17 AM EST) WBC 9.2 4.8 - 10.8 K/mcL LAB HEMETOLOGY METHOD 07/02/2024 10:51 AM [facility] RBC 4.50 4.50 - 5.50 M/mcL LAB HEMETOLOGY METHOD 07/02/2024 10:51 AM [facility] Hemoglobin 11.5(L) 13.5 - 17.5 g/dL LAB HEMETOLOGY METHOD 07/02/2024 10:51 AM [facility] Hematocrit 37.3(L) 42.0 - 54.0 % LAB HEMETOLOGY METHOD 07/02/2024 10:51 AM [facility] MCV 83.6 79.0 - 98.0 FL LAB HEMETOLOGY METHOD 07/02/2024 10:51 AM [facility] MCH 25.8(L) 27.0 - 32.0 pcg LAB HEMETOLOGY METHOD 07/02/2024 10:51 AM [facility] MCHC 30.8(L) 32.0 - 37.0 g/dL LAB HEMETOLOGY METHOD 07/02/2024 10:51 AM [facility] RDW 15.3(H) 11.0 - 15.0 % LAB HEMETOLOGY METHOD 07/02/2024 10:51 AM [facility] Platelets 322 130 - 400 K/mcL LAB HEMETOLOGY METHOD 07/02/2024 10:51 AM [facility] MPV 10.9 7.0 - 11.0 FL LAB HEMETOLOGY METHOD 07/02/2024 10:51 AM [facility] NRBC 0.0 <1.0 % LAB HEMETOLOGY METHOD 07/02/2024 10:51 AM [facility] NRBC Absolute 0.00 <0.10 K/mcL LAB HEMETOLOGY METHOD 07/02/2024 10:51 AM [facility] Blood Venous blood specimen / Unknown Venipuncture / Unknown 07/02/2024 7:17 AM EST 07/02/2024 9:17 AM EST Michelle Rucker MD LAB BLOOD ORDERABLES Fin al Result [facility] ([facility]) [facility] [address] [place] [address], documented in this encounter Visit Diagnoses Diagnosis [...] documented as of this encounter Care Teams Stockbroker Relationship Specialty Start Date End Date Michelle Rucker MD [address] [place] [phone] PCP - General Family Medicine 05/06/24 documented as of this encounter
--- OUTSIDE RECORDS SUMMARY | 2025-03-04 15:29 | XMS_ITS | Encounter Summary ---
Author Organization [facility] Address [address] [address] Phone Care Team Providers Care Naprapath Name Role Phone Tennille Linton NP Primary Care Provider + Encounter Details Date Type Department Care Team (Late st Contact Info) Description 12/31/2024 Documentation Only [facility], [address] [place] [address] [place] [address] [place] [phone] Social History Tobacco Use Types Packs/Day [...] Visit [facility] [address] [place] [address] Andrey Phan MD [address] [place] [address] documented as of this encounter Visit Diagnoses Not on filedocumented in this encounter Care Teams Naprapath Relationship Specialty Start Date End Date Tennille Linton NP [address] [place] [phone] PCP - General Nurse Practitioner 08/07/23 documented as of this encounter
--- OUTSIDE RECORDS SUMMARY | 2025-03-04 15:29 | XMS_ITS | Encounter Summary ---
Author Organization [facility] Address [address] [place] [address] Phone Care Team Providers Care Shank Burnisher Name Role Phone Tennille Linton NP Primary Care Provider + Encounter Details Date Type Department Care Team (Latest Contact Info) Description 03/01/2025 Orders Only [facility] [place], [address] [place] [address] [place] [address] [place] [address] Stage 3b chronic kidney disease (HCC) (Primary Dx); History of immunosuppressive therapy; Kidney replaced by transplant; 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) Hypervolemia History of renal transplant Poor glycemic control Other iron deficiency anemia Primary hyperparathyroidism (HCC) Albuminuria, not otherwise specified BK virus nephropathy Expected: 03/01/2025, Expires: 03/31/2026 Renal Function Panel Lab Routine Stage 3b chronic kidney disease (HCC) History of immunosuppressive therapy 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) Hypervolemia History of renal transplant Poor glycemic control Other iron deficiency anemia Primary hyperparathyroidism (HCC) Albuminuria, not otherwise specified BK virus nephropathy Expected: 03/01/2025, Expires: 03/31/2026 CBC and Differential Lab Routine Stage 3b chronic kidney disease (HCC) History of immunosuppressive therapy 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) Hypervolemia History of renal transplant Poor glycemic control Other iron deficiency anemia Primary hyperparathyroidism (HCC) Albuminuria, not otherwise specified BK virus nephropathy Expected: 03/01/2025, Expires: 03/31/2026 Hemoglobin A1c Lab Routine Stage 3b chronic kidney disease (HCC) History of immunosuppressive therapy 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) Hypervolemia History of renal transplant Poor glycemic control Other iron deficiency anemia Primary hyperparathyroidism (HCC) Albuminuria, not otherwise specified BK virus nephropathy Expected: 03/01/2025, Expires: 03/31/2026 AST Lab Routine Stage 3b chronic kidney disease (HCC) History of immunosuppressive therapy 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) Hypervolemia History of renal transplant Poor glycemic control Other iron deficiency anemia Primary hyperparathyroidism (HCC) Albuminuria, not otherwise specified BK virus nephropathy Expected: 03/01/2025, Expires: 03/31/2026 ALT Lab Routine Stage 3b chronic kidney disease (HCC) History of immunosuppressive therapy 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) Hypervolemia History of renal transplant Poor glycemic control Other iron deficiency anemia Primary hyperparathyroidism (HCC) Albuminuria, not otherwise specified BK virus nephropathy Expected: 03/01/2025, Expires: 03/31/2026 CK Lab Routine Stage 3b chronic kidney disease (HCC) History of immunosuppressive therapy 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) Hypervolemia History of renal transplant Poor glycemic control Other iron deficiency anemia Primary hyperparathyroidism (HCC) Albuminuria, not otherwise specified BK virus nephropathy Expected: 03/01/2025, Expires: 03/31/2026 Ferritin Lab Routine Stage 3b chronic kidney disease (HCC) History of immunosuppressive therapy 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) Hypervolemia History of renal transplant Poor glycemic control Other iron deficiency anemia Primary hyperparathyroidism (HCC) Albuminuria, not otherwise specified BK virus nephropathy Expected: 03/01/2025, Expires: 03/31/2026 Iron Panel (Fe, TIBC, TSAT) Lab Routine Stage 3b chronic kidney disease (HCC) History of immunosuppressive therapy 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) Hypervolemia History of renal transplant Poor glycemic control Other iron deficiency anemia Primary hyperparathyroidism (HCC) Albuminuria, not otherwise specified BK virus nephropathy Expected: 03/01/2025, Expires: 03/31/2026 PTH, Intact Lab Routine Stage 3b chronic kidney disease (HCC) History of immunosuppressive therapy 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) Hypervolemia History of renal transplant Poor glycemic control Other iron deficiency anemia Primary hyperparathyroidism (HCC) Albuminuria, not otherwise specified BK virus nephropathy Expected: 03/01/2025, Expires: 03/31/2026 Urine Albumin / Creatinine Ratio Lab Routine Stage 3b chronic kidney disease (HCC) History of immunosuppressive therapy 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) Hypervolemia History of renal transplant Poor glycemic control Other iron deficiency anemia Primary hyperparathyroidism (HCC) Albuminuria, not otherwise specified BK virus nephropathy Expected: 03/01/2025, Expires: 03/31/2026 Urinalysis, Complete w/reflex to Culture Lab Routine Stage 3b chronic kidney disease (HCC) History of immunosuppressive therapy 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) Hypervolemia History of renal transplant Poor glycemic control Other iron deficiency anemia Primary hyperparathyroidism (HCC) Albuminuria, not otherwise specified BK virus nephropathy Expected: 03/01/2025, Expires: 03/31/2026 BK Virus Urine, Quant PCR Lab Routine Stage 3b chronic kidney disease (HCC) History of immunosuppressive therapy 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) Hypervolemia History of renal transplant Poor glycemic control Other iron deficiency anemia Primary hyperparathyroidism (HCC) Albuminuria, not otherwise specified BK virus nephropathy Expected: 03/01/2025, Expires: 03/31/2026 BK Virus DNA, Quant PCR Lab Routine Stage 3b chronic kidney disease (HCC) History of immunosuppressive therapy 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) Hypervolemia History of renal transplant Poor glycemic control Other iron deficiency anemia Primary hyperparathyroidism (HCC) Albuminuria, not otherwise specified BK virus nephropathy Expected: 03/01/2025, Expires: 03/31/2026 documented as of this encounter Visit Diagnoses Diagnosis Stage 3b chronic kidney disease (HCC)- Primary History of immunosuppressive therapy 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
--- OUTSIDE RECORDS SUMMARY | 2025-03-04 15:29 | XMS_ITS | Encounter Summary ---
Author Organization [facility] Address [address] [address] Phone Care Team Providers Care Private Pilot Name Role Phone Tennille Linton NP Primary Care Provider + Encounter Details Date Type Department Care Team (Late st Contact Info) Description 12/31/2024 Documentation Only [facility] [place], [address] [place] [address] [place] [address] [place] [phone] Social History Tobacco Use Types Packs/Day [...] Visit [facility] [place] [address] [place] [address] Andrey Phan MD [address] [facility] [place] [address] documented as of this encounter Visit Diagnoses Not on filedocumented in this encounter Care Teams Private Pilot Relationship Specialty Start Date End Date Tennille Linton NP [address] [place] [phone] PCP - General Nurse Practitioner 08/07/23 documented as of this encounter
--- OUTSIDE RECORDS SUMMARY | 2025-03-04 15:29 | XMS_ITS | Encounter Summary ---
Author Organization [facility] Address [address] [place] [phone] Care Team Providers Care Urogynecology Physician Name Role Phone Michelle Rucker MD Primary Care Provider + Encounter Details Date Type Department Care Team (Late st Contact Info) Description 05/06/[address] [facility] - Main Lab [address] [facility] [place] [address] Michelle Rucker MD [address] [address] Heart failure, unspecified (CMS/HCC V24, [...] - 20.0 ng/mL 05/09/2024 12:52 PM EST [facility] Comment: Additional Information: Toxic Level > [...] for research. Test performed at [facility], [address], [place], [place] [id number] Brittanie Horan MD, PhD - Slasher Machine Operator Blood Venous blood specimen / Unknown Venipuncture / Unknown 05/06/2024 6:56 AM EST 05/06/2024 9:44 AM EST us Michelle Rucker MD LAB BLOOD ORDERABLES Fin al Result [facility] [address] [place], [place] [id number] * (ABNORMAL) Comprehensive metabolic panel (05/06/2024 6:56 AM EST) Sodium 137 133 - 145 mmol/L LAB CHEMISTRY METHOD 05/06/2024 12:15 PM EST [facility] Potassium 4.6 3.5 - 5.5 mmol/L LAB CHEMISTRY METHOD 05/06/2024 12:15 PM [facility] Chloride 105 96 - 110 mmol/L LAB CHEMISTRY METHOD 05/06/2024 12:15 PM [facility] CO2 21 21 - 32 mmol/L LAB CHEMISTRY METHOD 05/06/2024 12:15 PM [facility] Anion Gap 11 3 - 11 LAB CHEMISTRY METHOD 05/06/2024 12:15 PM [facility] Glucose 246(H) 70 - 100 mg/dL LAB CHEMISTRY METHOD 05/06/2024 12:15 PM [facility] BUN 24 5 - 25 mg/dL LAB CHEMISTRY METHOD 05/06/2024 12:15 PM [facility] Creatinine 1.63(H) 0.70 - 1.30 mg/dL LAB CHEMISTRY METHOD 05/06/2024 12:15 PM [facility] eGFR 46(L) >=60 mL/min/1. 73m2 LAB CHEMISTRY METHOD 05/06/2024 12:15 PM [facility] Comment:Calculation based on the Chronic Kidney Disease Epidemiology Collaboration (CKD-EPI) equation refit without adjustment for race. BUN/Creatinine Ratio 14.7 LAB CHEMISTRY METHOD 05/06/2024 12:15 PM [facility] Calcium 9.7 8.5 - 10.5 mg/dL LAB CHEMISTRY METHOD 05/06/2024 12:15 PM [facility] AST (SGOT) 19 10 - 42 unit/L LAB CHEMISTRY METHOD 05/06/2024 12:15 PM [facility] ALT (SGPT) 12 10 - 60 unit/L LAB CHEMISTRY METHOD 05/06/2024 12:15 PM [facility] Alkaline Phosphatase 61 42 - 121 unit/L LAB CHEMISTRY METHOD 05/06/2024 12:15 PM [facility] Total Protein 7.1 6.0 - 8.0 g/dL LAB CHEMISTRY METHOD 05/06/2024 12:15 PM EST [facility] Albumin 3.3 3.2 - 5.0 g/dL LAB CHEMISTRY METHOD 05/06/2024 12:15 PM [facility] Total Bilirubin 0.8 0.0 - 1.4 mg/dL LAB CHEMISTRY METHOD 05/06/2024 12:15 PM [facility] Blood Venous blood specimen / Unknown Venipuncture / Unknown 05/06/2024 6:56 AM EST 05/06/2024 9:44 AM EST us Michelle Rucker MD LAB BLOOD ORDERABLES Fin al Result [facility] [address] [place] [address], * (ABNORMAL) Complete blood count (05/06/2024 6:56 AM EST) WBC 13.5(H) 4.8 - 10.8 K/mcL LAB HEMETOLOGY METHOD 05/06/2024 11:34 AM [facility] RBC 4.50 4.50 - 5.50 M/[facility] LAB HEMETOLOGY METHOD 05/06/2024 11:34 AM [facility] Hemoglobin 12.4(L) 13.5 - 17.5 g/dL LAB HEMETOLOGY METHOD 05/06/2024 11:34 AM [facility] Hematocrit 37.8(L) 42.0 - 54.0 % LAB HEMETOLOGY METHOD 05/06/2024 11:34 AM [facility] MCV 83.8 79.0 - 98.0 FL LAB HEMETOLOGY METHOD 05/06/2024 11:34 AM [facility] MCH 27.5 27.0 - 32.0 pcg LAB HEMETOLOGY METHOD 05/06/2024 11:34 AM EST [facility] MCHC 32.8 32.0 - 37.0 g/dL LAB HEMETOLOGY METHOD 05/06/2024 11:34 AM [facility] RDW 12.9 11.0 - 15.0 % LAB HEMETOLOGY METHOD 05/06/2024 11:34 AM [facility] Platelets 248 130 - 400 K/mcL LAB HEMETOLOGY METHOD 05/06/2024 11:34 AM [facility] MPV 11.0 7.0 - 11.0 FL LAB HEMETOLOGY METHOD 05/06/2024 11:34 AM [facility] NRBC 0.0 <1.0 % LAB HEMETOLOGY METHOD 05/06/2024 11:34 AM [facility] NRBC Absolute 0.00 <0.10 K/mcL LAB HEMETOLOGY METHOD 05/06/2024 11:34 AM [facility] Blood Venous blood specimen / Unknown Venipuncture / Unknown 05/06/2024 6:56 AM EST 05/06/2024 9:44 AM EST Michelle Rucker MD LAB BLOOD ORDERABLES Fin al Result [facility] [address] [place] [address], documented in this encounter Visit Diagnoses Diagnosis [...] documented as of this encounter Care Teams Urogynecology Physician Relationship Specialty Start Date End Date Michelle Rucker MD [address] [address] PCP - General Family Medicine 05/06/24 documented as of this encounter
--- OUTSIDE RECORDS SUMMARY | 2025-03-04 15:29 | XMS_ITS | Encounter Summary ---
Author Organization [facility] Address [address] [place] [address] Care Team Providers Care Leather Grainer Name Role Phone Michelle Rucker MD Primary Care Provider + Encounter Details Date Type Department Care Team (Late st Contact Info) Description 07/03/[address] [facility] - Main Lab [address] [facility] [place] [address] Michelle Rucker MD [address] [address] Encounter for therapeutic drug level monitoring Social [...] the performance characteristics determined by [facility]. This confirmation testing has not been cleared or approved by the FDA. The laboratory is regulated under CLIA as qualified to perform high-complexity testing. This test is used for patient testing purposes. It should not be regarded as investigational or for research. Test performed at [facility], [address], [place] [address] Brittanie Horan MD, PhD - Metal Fabricating Shop Helper Blood Venous blood specimen / Unknown Venipuncture / Unknown 07/03/2024 5:42 AM EST 07/03/2024 9:25 AM EST Michelle Rucker MD LAB BLOOD ORDERABLES Fin al Result [facility] [address] [place] [address] documented in this encounter Visit Diagnoses Diagnosis Encounter for therapeutic drug level monitoring documented in this encounter Additional Health Concerns Infection Onset Date Last Indicated Resolved Time C. difficile Rule-Out 08/14/2024 08/13/20242024 11:06 AM EST MDRO (other) 12/15/2024 12/15/2024 documented as of this encounter Care Teams Leather Grainer Relationship Specialty Start Date End Date Michelle Rucker MD [address] [place] [address] PCP - General Family Medicine 05/06/24 documented as of this encounter
--- OUTSIDE RECORDS SUMMARY | 2025-03-04 15:29 | XMS_ITS | Encounter Summary ---
Author Organization [facility] Address [address] [place] [phone] Care Team Providers Care Drawing Press Operator Name Role Phone Michelle Rucker MD Primary Care Provider + Encounter Details Date Type Department Care Team (Late st Contact Info) Description 05/28/2024 Lab Requisition [facility] - Main Lab 299 [facility] [place] [address] Michelle Rucker MD [address] [facility] [address] [place] [address] Anemia, unspecified; Unspecified malignant neoplasm of skin [...] - 20.0 ng/mL 05/30/2024 12:46 PM EST [facility] Comment: Additional Information: Toxic Level > [...] developed and the performance characteristics determined by [facility]. This confirmation testing has not been cleared or approved by the FDA. The laboratory is regulated under CLIA as qualified to perform high-complexity testing. This test is used for patient testing purposes. It should not be regarded as investigational or for research. Test performed at [facility], [address], [place], [place] [id number] Brittanie Horan MD, PhD - Med Care Manager Blood Venous blood specimen / Unknown Venipuncture / Unknown 05/28/2024 7:04 AM EST 05/28/2024 9:00 AM EST Michelle Rucker MD LAB BLOOD ORDERABLES Fin al Result [facility] [address] [place] [address] * (ABNORMAL) Comprehensive metabolic panel (05/28/2024 7:04 AM EST) Sodium 140 133 - 145 mmol/L LAB CHEMISTRY METHOD 05/28/2024 10:39 AM EST [facility] Potassium 4.5 3.5 - 5.5 mmol/L LAB CHEMISTRY METHOD 05/28/2024 10:39 AM [facility] Chloride 110 96 - 110 mmol/L LAB CHEMISTRY METHOD 05/28/2024 10:39 AM [facility] CO2 22 21 - 32 mmol/L LAB CHEMISTRY METHOD 05/28/2024 10:39 AM [facility] Anion Gap 8 3 - 11 LAB CHEMISTRY METHOD 05/28/2024 10:39 AM [facility] Glucose 104(H) 70 - 100 mg/dL LAB CHEMISTRY METHOD 05/28/2024 10:39 AM [facility] BUN 31(H) 5 - 25 mg/dL LAB CHEMISTRY METHOD 05/28/2024 10:39 AM [facility] Creatinine 2.24(H) 0.70 - 1.30 mg/dL LAB CHEMISTRY METHOD 05/28/2024 10:39 AM [facility] eGFR 32(L) >=60 mL/min/1. 73m2 LAB CHEMISTRY METHOD 05/28/2024 10:39 AM [facility] Comment:Calculation based on the Chronic Kidney Disease Epidemiology Collaboration (CKD-EPI) equation refit without adjustment for race. BUN/Creatinine Ratio 13.8 LAB CHEMISTRY METHOD 05/28/2024 10:39 AM [facility] Calcium 9.8 8.5 - 10.5 mg/dL LAB CHEMISTRY METHOD 05/28/2024 10:39 AM [facility] AST (SGOT) 21 10 - 42 unit/L LAB CHEMISTRY METHOD 05/28/2024 10:39 AM [facility] ALT (SGPT) 18 10 - 60 unit/L LAB CHEMISTRY METHOD 05/28/2024 10:39 AM [facility] Alkaline Phosphatase 56 42 - 121 unit/L LAB CHEMISTRY METHOD 05/28/2024 10:39 AM [facility] Total Protein 6.6 6.0 - 8.0 g/dL LAB CHEMISTRY METHOD 05/28/2024 10:39 AM [facility] Albumin 3.1(L) 3.2 - 5.0 g/dL LAB CHEMISTRY METHOD 05/28/2024 10:39 AM [facility] Total Bilirubin 0.4 0.0 - 1.4 mg/dL LAB CHEMISTRY METHOD 05/28/2024 10:39 AM [facility] Blood Venous blood specimen / Unknown Venipuncture / Unknown 05/28/2024 7:04 AM EST 05/28/2024 9:00 AM EST us Michelle Rucker MD LAB BLOOD ORDERABLES Fin al Result [facility] [address] [place] [address], [place] [phone] * (ABNORMAL) Complete blood count (05/28/2024 7:04 AM EST) WBC 6.9 4.8 - 10.8 K/mcL LAB HEMETOLOGY METHOD 05/28/2024 10:12 AM [facility] RBC 4.60 4.50 - 5.50 M/mcL LAB HEMETOLOGY METHOD 05/28/2024 10:12 AM [facility] Hemoglobin 11.9(L) 13.5 - 17.5 g/dL LAB HEMETOLOGY METHOD 05/28/2024 10:12 AM [facility] Hematocrit 37.5(L) 42.0 - 54.0 % LAB HEMETOLOGY METHOD 05/28/2024 10:12 AM [facility] MCV 82.4 79.0 - 98.0 FL LAB HEMETOLOGY METHOD 05/28/2024 10:12 AM [facility] MCH 26.2(L) 27.0 - 32.0 pcg LAB HEMETOLOGY METHOD 05/28/2024 10:12 AM [facility] MCHC 31.7(L) 32.0 - 37.0 g/dL LAB HEMETOLOGY METHOD 05/28/2024 10:12 AM EST [facility] RDW 13.2 11.0 - 15.0 % LAB HEMETOLOGY METHOD 05/28/2024 10:12 AM [facility] Platelets 236 130 - 400 K/mcL LAB HEMETOLOGY METHOD 05/28/2024 10:12 AM EST [facility] MPV 10.7 7.0 - 11.0 FL LAB HEMETOLOGY METHOD 05/28/2024 10:12 AM EST [facility] NRBC 0.0 <1.0 % LAB HEMETOLOGY METHOD 05/28/2024 10:12 AM [facility] NRBC Absolute 0.00 <0.10 K/mcL LAB HEMETOLOGY METHOD 05/28/2024 10:12 AM [facility] Blood Venous blood specimen / Unknown Venipuncture / Unknown 05/28/2024 7:04 AM EST 05/28/2024 9:00 AM EST Michelle Rucker MD LAB BLOOD ORDERABLES Fin al Result [facility] [address] [place] [address], documented in this encounter Visit Diagnoses Diagnosis [...] documented as of this encounter Care Teams Drawing Press Operator Relationship Specialty Start Date End Date Michelle Rucker MD [address] [place] [phone] PCP - General Family Medicine 05/06/24 documented as of this encounter
--- OUTSIDE RECORDS SUMMARY | 2025-03-04 15:29 | XMS_ITS | Encounter Summary ---
Author Organization [facility] Address [address] [place] [phone] Care Team Providers Care Forging Dies Final Finisher Name Role Phone Michelle Rucker MD Primary Care Provider + Encounter Details Date Type Department Care Team (Late st Contact Info) Description 05/15/2024 Lab Requisition [facility] - Main Lab 299 [facility] [employer] [place] [address] Michelle Rucker MD [address] [place] [phone] Kidney transplant status; Squamous cell carcinoma of [...] documented as of this encounter Care Teams Forging Dies Final Finisher Relationship Specialty Start Date End Date Michelle Rucker MD [address] [place] [phone] PCP - General Family Medicine 05/06/24 documented as of this encounter
--- OUTSIDE RECORDS SUMMARY | 2025-03-04 15:29 | XMS_ITS | Encounter Summary ---
Author Organization [facility] Address [address] [address] Phone Care Team Providers Care Pie Icer Machine Name Role Phone Tennille Linton NP Primary Care Provider + Encounter Details Date Type Department Care Team (Late st Contact Info) Description 12/31/2024 Documentation Only [facility] [place], [address] [place] [address] [place] [address] [place] [phone] Social History Tobacco Use Types Packs/Day [...] Visit [facility] [place] [address] [place] [address] Andrey Phan MD [address] [facility] [address] [place] [address] documented as of this encounter Visit Diagnoses Not on filedocumented in this encounter Care Teams Pie Icer Machine Relationship Specialty Start Date End Date Tennille Linton NP [address] [place] [phone] PCP - General Nurse Practitioner 08/07/23 documented as of this encounter
--- OUTSIDE RECORDS SUMMARY | 2025-03-04 15:29 | XMS_ITS | Encounter Summary ---
Author Organization [facility], Address [address] [place] [phone] Phone Care Team Providers Care Technician Trainee Name Role Phone RoyerTennille cantor Sloane NATHAN Primary Care Provider + Encounter Details Date Type Department Care Team (Late st Contact Info) Description 01/09/2025 Documentation Only [facility] [address] [place] [phone] Gagandeep Sims MD [address] [place] [address] [place] [address] Social History Tobacco Use Types [...] Visit [facility] [address] [place] [phone] Andrey Phan MD [address] [place] [address] [place] [address] documented as of this encounter Visit Diagnoses Not on filedocumented in this encounter Care Teams Technician Trainee Relationship Specialty Start Date End Date Tennille Linton NP [address] [place] [phone] PCP - General Nurse Practitioner 08/07/23 documented as of this encounter
--- OUTSIDE RECORDS SUMMARY | 2025-03-04 15:29 | XMS_ITS | Encounter Summary ---
Author Organization [facility] Address [address] [place] [phone] Care Team Providers Care Plumbing Warehouse Helper Name Role Phone Michelle Rucker MD Primary Care Provider + Encounter Details Date Type Department Care Team (Late st Contact Info) Description 06/08/2024 Lab Requisition [facility] - Main Lab 299 [facility] [place] [address] Michelle Rucker MD [address] [phone] Heart failure, unspecified (CMS/HCC V24, CMS/HCC V28); [...] LAB CHEMISTRY METHOD 06/08/2024 2:45 PM EST [facility] Mean Bld Glu Estim. 169 mg/dL LAB CHEMISTRY METHOD 06/08/2024 2:45 PM EST [facility] Blood Venous blood specimen / Unknown Venipuncture / Unknown 06/08/2024 6:35 AM EST 06/08/2024 12:12 PM EST us Michelle Rucker MD LAB BLOOD ORDERABLES Fin al Result [facility] [address] [place] [address], [place] [phone] * Vitamin B12 (06/08/2024 6:35 AM EST) Pathologist [facility] Vitamin B-12 618 250 - 900 pcg/mL LAB CHEMISTRY METHOD 06/08/2024 6:05 PM EST [facility] Blood Venous blood specimen / Unknown Venipuncture / Unknown 06/08/2024 6:35 AM EST 06/08/2024 12:12 PM EST Michelle Rucker MD LAB BLOOD ORDERABLES Fin al Result [facility] [address] [place] [address], [place] [phone] * (ABNORMAL) Folate (06/08/2024 6:35 AM EST) [facility] Folate 2.1(L) 2.8 - 17.0 ng/ml LAB CHEMISTRY METHOD 06/08/2024 6:05 PM EST [facility] Blood Venous blood specimen / Unknown Venipuncture / Unknown 06/08/2024 6:35 AM EST 06/08/2024 12:12 PM EST Michelle Rucker MD LAB BLOOD ORDERABLES Fin al Result [facility] [address] [place] [address], [place] [phone] * (ABNORMAL) Magnesium (06/08/2024 6:35 AM EST) [facility] Magnesium 1.7(L) 1.9 - 2.6 mg/dL LAB CHEMISTRY METHOD 06/08/2024 5:40 PM EST [facility] Blood Venous blood specimen / Unknown Venipuncture / Unknown 06/08/2024 6:35 AM EST 06/08/2024 12:12 PM EST Michelle Rucker MD LAB BLOOD ORDERABLES Fin al Result Performing Organization Address [facility]/ZIP Co de Phone Number [facility] [address] [place] [address], [place] [phone] * (ABNORMAL) Thyroid stimulating hormone (06/08/2024 6:35 AM EST) TSH 4.31(H) 0.40 - 4.00 mcIU/mL LAB CHEMISTRY METHOD 06/08/2024 5:39 PM [facility] Blood Venous blood specimen / Unknown Venipuncture / Unknown 06/08/2024 6:35 AM EST 06/08/2024 12:12 PM EST Michelle Rucker MD LAB BLOOD ORDERABLES Fin al Result Performing Organization Address [facility]/ZIP Co de Phone Number [facility] [address] [place] [address], [place] [phone] * (ABNORMAL) Comprehensive metabolic panel (06/08/2024 6:35 AM EST) Pathologist [facility] Sodium 139 133 - 145 mmol/L LAB CHEMISTRY METHOD 06/08/2024 6:05 PM [facility] Potassium 3.9 3.5 - 5.5 mmol/L LAB CHEMISTRY METHOD 06/08/2024 6:05 PM [facility] Chloride 106 96 - 110 mmol/L LAB CHEMISTRY METHOD 06/08/2024 6:05 PM [facility] CO2 24 21 - 32 mmol/L LAB CHEMISTRY METHOD 06/08/2024 6:05 PM [facility] Anion Gap 9 3 - 11 LAB CHEMISTRY METHOD 06/08/2024 6:05 PM [facility] Glucose 159(H) 70 - 100 mg/dL LAB CHEMISTRY METHOD 06/08/2024 6:05 PM [facility] BUN 27(H) 5 - 25 mg/dL LAB CHEMISTRY METHOD 06/08/2024 6:05 PM [facility] Creatinine 1.91(H) 0.70 - 1.30 mg/dL LAB CHEMISTRY METHOD 06/08/2024 6:05 PM [facility] eGFR 38(L) >=60 mL/min/1. 73m2 LAB CHEMISTRY METHOD 06/08/2024 6:05 PM [facility] Comment:Calculation based on the Chronic Kidney Disease Epidemiology Collaboration (CKD-EPI) equation refit without adjustment for race. BUN/Creatinine Ratio 14.1 LAB CHEMISTRY METHOD 06/08/2024 6:05 PM [facility] Calcium 9.3 8.5 - 10.5 mg/dL LAB CHEMISTRY METHOD 06/08/2024 6:05 PM [facility] AST (SGOT) 13 10 - 42 unit/L LAB CHEMISTRY METHOD 06/08/2024 6:05 PM [facility] ALT (SGPT) 12 10 - 60 unit/L LAB CHEMISTRY METHOD 06/08/2024 6:05 PM [facility] Alkaline Phosphatase 56 42 - 121 unit/L LAB CHEMISTRY METHOD 06/08/2024 6:05 PM [facility] Total Protein 6.3 6.0 - 8.0 g/dL LAB CHEMISTRY METHOD 06/08/2024 6:05 PM [facility] Albumin 2.9(L) 3.2 - 5.0 g/dL LAB CHEMISTRY METHOD 06/08/2024 6:05 PM [facility] Total Bilirubin 0.5 0.0 - 1.4 mg/dL LAB CHEMISTRY METHOD 06/08/2024 6:05 PM [facility] Blood Venous blood specimen / Unknown Venipuncture / Unknown 06/08/2024 6:35 AM EST 06/08/2024 12:12 PM EST Michelle Rucker MD LAB BLOOD ORDERABLES Fin al Result [facility] [address] [place] [address], * (ABNORMAL) Complete blood count (06/08/2024 6:35 AM EST) WBC 4.2(L) 4.8 - 10.8 K/mcL LAB HEMETOLOGY METHOD 06/08/2024 1:01 PM [facility] RBC 4.50 4.50 - 5.50 M/mcL LAB HEMETOLOGY METHOD 06/08/2024 1:01 PM [facility] Hemoglobin 11.6(L) 13.5 - 17.5 g/dL LAB HEMETOLOGY METHOD 06/08/2024 1:01 PM [facility] Hematocrit 37.4(L) 42.0 - 54.0 % LAB HEMETOLOGY METHOD 06/08/2024 1:01 PM [facility] MCV 82.6 79.0 - 98.0 FL LAB HEMETOLOGY METHOD 06/08/2024 1:01 PM [facility] MCH 25.6(L) 27.0 - 32.0 pcg LAB HEMETOLOGY METHOD 06/08/2024 1:01 PM [facility] MCHC 31.0(L) 32.0 - 37.0 g/dL LAB HEMETOLOGY METHOD 06/08/2024 1:01 PM [facility] RDW 13.7 11.0 - 15.0 % LAB HEMETOLOGY METHOD 06/08/2024 1:01 PM [facility] Platelets 152 130 - 400 K/mcL LAB HEMETOLOGY METHOD 06/08/2024 1:01 PM [facility] MPV 11.4(H) 7.0 - 11.0 FL LAB HEMETOLOGY METHOD 06/08/2024 1:01 PM [facility] NRBC 0.0 <1.0 % LAB HEMETOLOGY METHOD 06/08/2024 1:01 PM EST [facility] NRBC Absolute 0.00 <0.10 K/mcL LAB HEMETOLOGY METHOD 06/08/2024 1:01 PM EST [facility] Blood Venous blood specimen / Unknown Venipuncture / Unknown 06/08/2024 6:35 AM EST 06/08/2024 12:12 PM EST us Michelle Rucker MD LAB BLOOD ORDERABLES Fin al Result [facility] [address] [place] [address], documented in this encounter Visit Diagnoses Diagnosis [...] documented as of this encounter Care Teams Plumbing Warehouse Helper Relationship Specialty Start Date End Date Michelle Rucker MD [address] [place] [phone] PCP - General Family Medicine 05/06/24 documented as of this encounter
--- OUTSIDE RECORDS SUMMARY | 2025-03-04 15:29 | XMS_ITS | Encounter Summary ---
Author Organization [facility] Address [address] [place] [phone] Care Team Providers Care Office Correspondent Name Role Phone Michelle Rucker MD Primary Care Provider + Encounter Details Date Type Department Care Team (Late st Contact Info) Description 06/19/2024 Lab Requisition [facility] - Main Lab 299 [facility] [place] [address] Michelle Rucker MD [address] [phone] Hyperlipidemia, unspecified; Heart failure, unspecified (CMS/HCC V24, [...] documented as of this encounter Care Teams Office Correspondent Relationship Specialty Start Date End Date Michelle Rucker MD [address] [address] PCP - General Family Medicine 05/06/24 documented as of this encounter
--- OUTSIDE RECORDS SUMMARY | 2025-03-04 15:30 | XMS_ITS | Encounter Summary ---
Author Organization [facility] Address [address] [place] [phone] Care Team Providers Care Education Site Manager Name Role Phone Michelle Rucker MD Primary Care Provider + Encounter Details Date Type Department Care Team (Late st Contact Info) Description 07/07/2024 Lab Requisition [facility] - Main Lab 299 [facility] [place] [address] Michelle Rucker MD [address] [address] Heart failure, unspecified (CMS/HCC V24, [...] mmol/L LAB CHEMISTRY METHOD 07/08/2024 10:15 AM [facility] Potassium 4.4 3.5 - 5.5 mmol/L LAB CHEMISTRY METHOD 07/08/2024 10:15 AM [facility] Chloride 101 96 - 110 mmol/L LAB CHEMISTRY METHOD 07/08/2024 10:15 AM [facility] CO2 27 21 - 32 mmol/L LAB CHEMISTRY METHOD 07/08/2024 10:15 AM [facility] Anion Gap 7 3 - 11 LAB CHEMISTRY METHOD 07/08/2024 10:15 AM [facility] Glucose 342(H) 70 - 100 mg/dL LAB CHEMISTRY METHOD 07/08/2024 10:15 AM [facility] BUN 33(H) 5 - 25 mg/dL LAB CHEMISTRY METHOD 07/08/2024 10:15 AM [facility] Creatinine 1.50(H) 0.70 - 1.30 mg/dL LAB CHEMISTRY METHOD 07/08/2024 10:15 AM [facility] eGFR 51(L) >=60 mL/min/1. 73m2 LAB CHEMISTRY METHOD 07/08/2024 10:15 AM [facility] Comment:Calculation based on the Chronic Kidney Disease Epidemiology Collaboration (CKD-EPI) equation refit without adjustment for race. BUN/Creatinine Ratio 22.0 LAB CHEMISTRY METHOD 07/08/2024 10:15 AM [facility] Calcium 9.3 8.5 - 10.5 mg/dL LAB CHEMISTRY METHOD 07/08/2024 10:15 AM [facility] AST (SGOT) 14 10 - 42 unit/L LAB CHEMISTRY METHOD 07/08/2024 10:15 AM [facility] ALT (SGPT) 12 10 - 60 unit/L LAB CHEMISTRY METHOD 07/08/2024 10:15 AM [facility] Alkaline Phosphatase 74 42 - 121 unit/L LAB CHEMISTRY METHOD 07/08/2024 10:15 AM [facility] Total Protein 6.8 6.0 - 8.0 g/dL LAB CHEMISTRY METHOD 07/08/2024 10:15 AM [facility] Albumin 2.6(L) 3.2 - 5.0 g/dL LAB CHEMISTRY METHOD 07/08/2024 10:15 AM [facility] Total Bilirubin 0.4 0.0 - 1.4 mg/dL LAB CHEMISTRY METHOD 07/08/2024 10:15 AM [facility] Blood Venous blood specimen / Unknown Venipuncture / Unknown 07/08/2024 5:38 AM EST 07/08/2024 8:44 AM EST us Michelle Rucker MD LAB BLOOD ORDERABLES Fin al Result [facility] [address] [place] [address], * (ABNORMAL) Complete blood count (07/08/2024 5:38 AM EST) WBC 9.1 4.8 - 10.8 K/mcL LAB HEMETOLOGY METHOD 07/08/2024 8:56 AM [facility] RBC 4.70 4.50 - 5.50 M/mcL LAB HEMETOLOGY METHOD 07/08/2024 8:56 AM [facility] Hemoglobin 12.4(L) 13.5 - 17.5 g/dL LAB HEMETOLOGY METHOD 07/08/2024 8:56 AM EST [facility] Hematocrit 39.6(L) 42.0 - 54.0 % LAB HEMETOLOGY METHOD 07/08/2024 8:56 AM [facility] MCV 83.7 79.0 - 98.0 FL LAB HEMETOLOGY METHOD 07/08/2024 8:56 AM [facility] MCH 26.2(L) 27.0 - 32.0 pcg LAB HEMETOLOGY METHOD 07/08/2024 8:56 AM EST [facility] MCHC 31.3(L) 32.0 - 37.0 g/dL LAB HEMETOLOGY METHOD 07/08/2024 8:56 AM [facility] RDW 15.8(H) 11.0 - 15.0 % LAB HEMETOLOGY METHOD 07/08/2024 8:56 AM [facility] Platelets 252 130 - 400 K/mcL LAB HEMETOLOGY METHOD 07/08/2024 8:56 AM EST [facility] MPV 11.3(H) 7.0 - 11.0 FL LAB HEMETOLOGY METHOD 07/08/2024 8:56 AM EST [facility] NRBC 0.0 <1.0 % LAB HEMETOLOGY METHOD 07/08/2024 8:56 AM [facility] NRBC Absolute 0.00 <0.10 K/mcL LAB HEMETOLOGY METHOD 07/08/2024 8:56 AM [facility] Blood Venous blood specimen / Unknown Venipuncture / Unknown 07/08/2024 5:38 AM EST 07/08/2024 8:44 AM EST us Michelle Rucker MD LAB BLOOD ORDERABLES Fin al Result [facility] [address] [place] [address], documented in this encounter Visit Diagnoses Diagnosis Heart failure, unspecified ([facility] V24, [facility] V28) Heart failure, unspecified Vitamin D deficiency, unspecified Hyperlipidemia, unspecified Anemia, unspecified Type 1 diabetes mellitus with diabetic neuropathy, unspecified ([facility] V24, [facility] V28) 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 difficile Rule-Out 08/14/2024 08/13/20242024 11:06 AM EST MDRO (other) 12/15/2024 12/15/2024 documented as of this encounter Care Teams Education Site Manager Relationship Specialty Start Date End Date Michelle Rucker MD [address] [phone] PCP - General Family Medicine 05/06/24 documented as of this encounter
--- OUTSIDE RECORDS SUMMARY | 2025-03-04 15:30 | XMS_ITS | Encounter Summary ---
Author Organization [facility] Address [address] [place] [phone] Care Team Providers Care Reproducer Name Role Phone Michelle Rucker MD Primary Care Provider + Encounter Details Date Type Department Care Team (Late st Contact Info) Description 08/26/2024 Lab Requisition [facility] - Main Lab 299 [facility] [place] [address] Michelle Rucker MD [address] [address] Type 1 diabetes mellitus with diabetic neuropathy, [...] developed and the performance characteristics determined by [facility]. This confirmation testing has not been cleared or approved by the FDA. The laboratory is regulated under CLIA as qualified to perform high-complexity testing. This test is used for patient testing purposes. It should not be regarded as investigational or for research. Test performed at [facility], [address] , [place] [address] Brittanie Horan MD, PhD - Machine Operator Cane Cutter Blood Venous blood specimen / Unknown Venipuncture / Unknown 08/27/2024 6:26 AM EST 08/27/2024 8:10 AM EST us Michelle Rucker MD LAB BLOOD ORDERABLES Fin al Result [facility] [address] [place] [address] * (ABNORMAL) Basic metabolic panel (08/27/2024 6:26 AM EST) Sodium 132(L) 133 - 145 mmol/L LAB CHEMISTRY METHOD 08/27/2024 9:15 AM [facility] Potassium 4.2 3.5 - 5.5 mmol/L LAB CHEMISTRY METHOD 08/27/2024 9:15 AM [facility] Chloride 98 96 - 110 mmol/L LAB CHEMISTRY METHOD 08/27/2024 9:15 AM [facility] CO2 26 21 - 32 mmol/L LAB CHEMISTRY METHOD 08/27/2024 9:15 AM [facility] Anion Gap 8 3 - 11 LAB CHEMISTRY METHOD 08/27/2024 9:15 AM [facility] Glucose 282(H) 70 - 100 mg/dL LAB CHEMISTRY METHOD 08/27/2024 9:15 AM [facility] BUN 29(H) 5 - 25 mg/dL LAB CHEMISTRY METHOD 08/27/2024 9:15 AM [facility] Creatinine 1.29 0.70 - 1.30 mg/dL LAB CHEMISTRY METHOD 08/27/2024 9:15 AM [facility] eGFR 61 >=60 mL/min/1. 73m2 LAB CHEMISTRY METHOD 08/27/2024 9:15 AM [facility] Comment:Calculation based on the Chronic Kidney Disease Epidemiology Collaboration (CKD-EPI) equation refit without adjustment for race. BUN/Creatinine Ratio 22.5 LAB CHEMISTRY METHOD 08/27/2024 9:15 AM [facility] Calcium 9.8 8.5 - 10.5 mg/dL LAB CHEMISTRY METHOD 08/27/2024 9:15 AM [facility] Blood Venous blood specimen / Unknown Venipuncture / Unknown 08/27/2024 6:26 AM EST 08/27/2024 8:10 AM EST us Michelle Rucker MD LAB BLOOD ORDERABLES Fin al Result [facility] [address] [place] [address], * (ABNORMAL) Complete blood count (08/27/2024 6:26 AM EST) [facility] WBC 9.7 4.8 - 10.8 K/mcL LAB HEMETOLOGY METHOD 08/27/2024 8:48 AM [facility] RBC 4.00(L) 4.50 - 5.50 M/mcL LAB HEMETOLOGY METHOD 08/27/2024 8:48 AM [facility] Hemoglobin 10.1(L) 13.5 - 17.5 g/dL LAB HEMETOLOGY METHOD 08/27/2024 8:48 AM [facility] Hematocrit 31.6(L) 42.0 - 54.0 % LAB HEMETOLOGY METHOD 08/27/2024 8:48 AM [facility] MCV 79.8 79.0 - 98.0 FL LAB HEMETOLOGY METHOD 08/27/2024 8:48 AM [facility] MCH 25.5(L) 27.0 - 32.0 pcg LAB HEMETOLOGY METHOD 08/27/2024 8:48 AM [facility] MCHC 32.0 32.0 - 37.0 g/dL LAB HEMETOLOGY METHOD 08/27/2024 8:48 AM [facility] RDW 15.0 11.0 - 15.0 % LAB HEMETOLOGY METHOD 08/27/2024 8:48 AM [facility] Platelets 348 130 - 400 K/mcL LAB HEMETOLOGY METHOD 08/27/2024 8:48 AM [facility] MPV 10.1 7.0 - 11.0 FL LAB HEMETOLOGY METHOD 08/27/2024 8:48 AM [facility] NRBC 0.0 <1.0 % LAB HEMETOLOGY METHOD 08/27/2024 8:48 AM EST [facility] NRBC Absolute 0.00 <0.10 K/mcL LAB HEMETOLOGY METHOD 08/27/2024 8:48 AM EST [facility] Blood Venous blood specimen / Unknown Venipuncture / Unknown 08/27/2024 6:26 AM EST 08/27/2024 8:10 AM EST us Michelle Rucker MD LAB BLOOD ORDERABLES Fin al Result [facility] [address] [place] [address], documented in this encounter Visit Diagnoses Diagnosis Type 1 diabetes mellitus with diabetic neuropathy, unspecified ([facility] V24, [facility] V28) 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
--- OUTSIDE RECORDS SUMMARY | 2025-03-04 15:30 | XMS_ITS | Encounter Summary ---
Author Organization [facility] Address [address] [phone] Phone Care Team Providers Care Die Casting Supervisor Name Role Phone Tennille Linton NP Primary Care Provider + Encounter Details Date Type Department Care Team (Late st Contact Info) Description 12/01/2024 Documentation Only [facility], [address] [place] [address] [place] [address] [place] [phone] Social History Tobacco Use Types Packs/Day [...] Visit [facility] [address] [address] Andrey Phan MD [address] [place] [address] documented as of this encounter Visit Diagnoses Not on filedocumented in this encounter Care Teams Die Casting Supervisor Relationship Specialty Start Date End Date Tennille Linton NP [address] [place] [phone] PCP - General Nurse Practitioner 08/07/23 documented as of this encounter
--- OUTSIDE RECORDS SUMMARY | 2025-03-04 15:30 | XMS_ITS | Encounter Summary ---
Author Organization [facility] Address [address] [place] [address] Care Team Providers Care Explosive Ordnance Handler Name Role Phone Michelle Rucker MD Primary Care Provider + Encounter Details Date Type Department Care Team (Late st Contact Info) Description 10/06/2024 Lab Requisition [facility] - Main Lab 299 [facility] [place] [address] Michelle Rucker MD [address] [address] Other transplanted organ and tissue status Social [...] developed and the performance characteristics determined by [facility]. This confirmation testing has not been cleared or approved by the FDA. The laboratory is regulated under CLIA as qualified to perform high-complexity testing. This test is used for patient testing purposes. It should not be regarded as investigational or for research. Test performed at [facility], [address], [place] [address] Brittanie Horan MD, PhD - Inventory Auditor Blood Venous blood specimen / Unknown Venipuncture / Unknown 10/06/2024 7:06 AM EDT 10/06/2024 10:10 AM EDT Mihcelle Rucker MD LAB BLOOD ORDERABLES Fin al Result [facility] [address] [place] [address] documented in this encounter Visit Diagnoses Diagnosis Other transplanted organ and tissue status documented in this encounter Additional Health Concerns Infection Onset Date Last Indicated Resolved Time MDRO (other) 12/15/2024 12/15/2024 documented as of this encounter Care Teams Explosive Ordnance Handler Relationship Specialty Start Date End Date Michelle Rucker MD [address] [address] PCP - General Family Medicine 05/06/24 documented as of this encounter
--- OUTSIDE RECORDS SUMMARY | 2025-03-04 15:30 | XMS_ITS | Encounter Summary ---
Author Organization [facility] Address [address] [place] [phone] Care Team Providers Care Home Appliance Tech Name Role Phone Michelle Rucker MD Primary Care Provider + Encounter Details Date Type Department Care Team (Late st Contact Info) Description 07/30/2024 Lab Requisition [facility] - Main Lab 299 [facility] [employer] [place] [address] Michelle Rucker MD [address] [phone] Kidney transplant status; Malignant (primary) neoplasm, unspecified [...] documented as of this encounter Care Teams Home Appliance Tech Relationship Specialty Start Date End Date Michelle Rucker MD [address] [phone] PCP - General Family Medicine 05/06/24 documented as of this encounter
--- OUTSIDE RECORDS SUMMARY | 2025-03-04 15:30 | XMS_ITS | Encounter Summary ---
Author Organization [facility] Address [address] [place] [phone] Care Team Providers Care Pc Analyst Name Role Phone Michelle Rucker MD Primary Care Provider + Encounter Details Date Type Department Care Team (Late st Contact Info) Description 08/12/2024 Lab Requisition [facility] - Main Lab [address] [facility] [place] [address] Michelle Rucker MD [address] [address] Type 1 diabetes mellitus with [...] mmol/L LAB CHEMISTRY METHOD 08/13/2024 12:02 PM [facility] Potassium 4.4 3.5 - 5.5 mmol/L LAB CHEMISTRY METHOD 08/13/2024 12:02 PM [facility] Chloride 95(L) 96 - 110 mmol/L LAB CHEMISTRY METHOD 08/13/2024 12:02 PM [facility] CO2 31 21 - 32 mmol/L LAB CHEMISTRY METHOD 08/13/2024 12:02 PM [facility] Anion Gap 7 3 - 11 LAB CHEMISTRY METHOD 08/13/2024 12:02 PM [facility] Glucose 175(H) 70 - 100 mg/dL LAB CHEMISTRY METHOD 08/13/2024 12:02 PM [facility] BUN 34(H) 5 - 25 mg/dL LAB CHEMISTRY METHOD 08/13/2024 12:02 PM [facility] Creatinine 1.27 0.70 - 1.30 mg/dL LAB CHEMISTRY METHOD 08/13/2024 12:02 PM [facility] eGFR 62 >=60 mL/min/1. 73m2 LAB CHEMISTRY METHOD 08/13/2024 12:02 PM [facility] Comment:Calculation based on the Chronic Kidney Disease Epidemiology Collaboration (CKD-EPI) equation refit without adjustment for race. BUN/Creatinine Ratio 26.8 LAB CHEMISTRY METHOD 08/13/2024 12:02 PM [facility] Calcium 9.6 8.5 - 10.5 mg/dL LAB CHEMISTRY METHOD 08/13/2024 12:02 PM [facility] Blood Venous blood specimen / Unknown Venipuncture / Unknown 08/13/2024 7:21 AM EST 08/13/2024 11:12 AM EST us Michelle Rucker MD LAB BLOOD ORDERABLES Fin al Result [facility] [address] [place] [address], [place] [phone] * (ABNORMAL) Complete blood count (08/13/2024 7:21 AM EST) WBC 11.4(H) 4.8 - 10.8 K/mcL LAB HEMETOLOGY METHOD 08/13/2024 11:35 AM [facility] RBC 3.50(L) 4.50 - 5.50 M/mcL LAB HEMETOLOGY METHOD 08/13/2024 11:35 AM [facility] Hemoglobin 9.2(L) 13.5 - 17.5 g/dL LAB HEMETOLOGY METHOD 08/13/2024 11:35 AM [facility] Hematocrit 29.8(L) 42.0 - 54.0 % LAB HEMETOLOGY METHOD 08/13/2024 11:35 AM [facility] MCV 84.2 79.0 - 98.0 FL LAB HEMETOLOGY METHOD 08/13/2024 11:35 AM [facility] MCH 26.0(L) 27.0 - 32.0 pcg LAB HEMETOLOGY METHOD 08/13/2024 11:35 AM [facility] MCHC 30.9(L) 32.0 - 37.0 g/dL LAB HEMETOLOGY METHOD 08/13/2024 11:35 AM [facility] RDW 15.2(H) 11.0 - 15.0 % LAB HEMETOLOGY METHOD 08/13/2024 11:35 AM [facility] Platelets 360 130 - 400 K/mcL LAB HEMETOLOGY METHOD 08/13/2024 11:35 AM [facility] MPV 11.3(H) 7.0 - 11.0 FL LAB HEMETOLOGY METHOD 08/13/2024 11:35 AM EST [facility] NRBC 0.0 <1.0 % LAB [facility] METHOD 08/13/2024 11:35 AM EST [facility] NRBC Absolute 0.00 <0.10 K/mcL LAB HEMETOLOG METHOD 08/13/2024 11:35 AM EST [facility] Blood Venous blood specimen / Unknown Venipuncture / Unknown 08/13/2024 7:21 AM EST 08/13/2024 11:12 AM EST Michelle Rucker MD LAB BLOOD ORDERABLES Fin al Result [facility] [address] [place] [address], documented in this encounter Visit Diagnoses Diagnosis [...] documented as of this encounter Care Teams Pc Analyst Relationship Specialty Start Date End Date Michelle Rucker MD [address] [place] [id number] PCP - General Family Medicine 05/06/24 documented as of this encounter
--- OUTSIDE RECORDS SUMMARY | 2025-03-04 15:30 | XMS_ITS | Encounter Summary ---
Author Organization [facility] Address [address] [place] [phone] Care Team Providers Care Filler Shredder Helper Name Role Phone Michelle Rucker MD Primary Care Provider + Encounter Details Date Type Department Care Team (Late st Contact Info) Description 08/13/[address] [facility] - Main Lab [address] [place] [address] Michelle Rucker MD [address] [phone] Urinary tract infection, site not specified Social [...] reflex microscopic (08/12/2024 10:00 PM EST) Specific [place] Urine 1.009 1.003 - 1.030 LAB URINALYSIS - AUTOMATED METHOD 08/13/2024 12:01 PM [facility] pH, Urine 6.5 5.0 - 8.0 pH LAB URINALYSIS - AUTOMATED METHOD 08/13/2024 12:01 PM [facility] Leukocytes, Urine Large(A) Negative LAB URINALYSIS - AUTOMATED METHOD 08/13/2024 12:01 PM [facility] Nitrite, Urine Negative Negative LAB URINALYSIS - AUTOMATED METHOD 08/13/2024 12:01 PM [facility] Protein, Urine Trace <=Trace mg/dL LAB URINALYSIS - AUTOMATED METHOD 08/13/2024 12:01 PM [facility] Glucose, Urine Negative Negative mg/dL LAB URINALYSIS - AUTOMATED METHOD 08/13/2024 12:01 PM [facility] Ketones, Urine Negative Negative mg/dL LAB URINALYSIS - AUTOMATED METHOD 08/13/2024 12:01 PM [facility] Urobilinogen, Urine 0.2 0.2 - 1.0 mg/dL LAB URINALYSIS - AUTOMATED METHOD 08/13/2024 12:01 PM [facility] Bilirubin, Urine Negative Negative LAB URINALYSIS - AUTOMATED METHOD 08/13/2024 12:01 PM [facility] Blood, Urine Moderate(A) Negative LAB URINALYSIS - AUTOMATED METHOD 08/13/2024 12:01 PM [facility] RBC, Urine 4.0 0 - 4 /HPF LAB URINALYSIS - AUTOMATED METHOD 08/13/2024 12:01 PM [facility] WBC, Urine 594.1(H) 0 - 4 /HPF LAB URINALYSIS - AUTOMATED METHOD 08/13/2024 12:01 PM [facility] Squamous Epithelial, Urine 0 0 - 60 /LPF LAB URINALYSIS - AUTOMATED METHOD 08/13/2024 12:01 PM [facility] Bacteria, Urine Moderate(A) Negative /HPF LAB URINALYSIS - AUTOMATED METHOD 08/13/2024 12:01 PM EST [facility] Hyaline Casts, Urine 3.0 0 - 3 /LPF LAB URINALYSIS - AUTOMATED METHOD 08/13/2024 12:01 PM EST [facility] Yeast, Urine 3+(A) None /HPF 08/13/2024 12:01 PM EST [facility] Comment:This is an appended report. These results have been appended to a previously final verified report. Urine Urine specimen from urethra / Unknown 08/12/2024 10:00 PM EST 08/13/2024 11:23 AM EST Michelle Rucker MD LAB URINE ORDERABLES Cristian michael Result - Final Performing Organization Address [facility]/ZIP Co de Phone Number [facility] [address] [place] [address], [place] [phone] * (ABNORMAL) Culture urine (08/12/2024 10:00 PM EST) Culture, Urine 50,000-100, 000 CFU/mL Yolande albicans/du bliniensis( A) 08/15/2024 1:21 PM EST [facility] Comment: Edited result: Previously reported as Yeast on 08/14/2024 at 1054 EST. Urine Urine specimen from urethra / Unknown 08/12/2024 10:00 PM EST 08/13/2024 11:23 AM EST Michelle Rucker MD LAB MICROBIOLOGY - GENER AL ORDERABLES Final Result [facility] [address] [place] [address], [place] [phone] documented in this encounter Visit Diagnoses Diagnosis Urinary tract infection, site not specified documented in this encounter Additional Health Concerns Infection Onset Date Last Indicated Resolved Time C. difficile Rule-Out 08/14/2024 08/13/20242024 11:06 AM EST MDRO (other) 12/15/2024 12/15/2024 documented as of this encounter Care Teams Filler Shredder Helper Relationship Specialty Start Date End Date Michelle Rucker MD [address] [phone] PCP - General Family Medicine 05/06/24 documented as of this encounter
--- OUTSIDE RECORDS SUMMARY | 2025-03-04 15:30 | XMS_ITS | Encounter Summary ---
Author Organization [facility] Address [address] [place] [address] Encounters * CPT with Inocencio Worthington at [facility] on 2024-11-30 { reasonForRequest : fever/vomiting/weakness , patientReports : Nausea with or without vomiting , denies :[ Sharp focal or diffuse abdominal pain , Vomiting blood/coffee ground material , Bloating, jaundice new onset with pain , Nausea and vomiting greater than 2 hours with abdominal pain , Tearing pain that radiates to back , Food Impaction , Vague abdominal pain greater than 24 h ours , Constipation , Diarrhea no blood in stool ], chiefComplaints : Nausea / Vomiting, Fever , pmh : Organ Transplant, Hypertension, Diabetes Mellitus Type 2, Hyperlipidemia, Stroke , allergies : Dilaudid, Oxycodone, Percocet , otherAllergies :null, painAssessment : , visi tOutcome : , additionalComments : 69 y.o male complains of Nausea / Vomiting, Fever\n\nSister calling for pt, not feeling well since last night and started vomiting at 2100. He has thrown up 3 times before midnight. She tried to give him tylenol and antinausea medicine through his Gtube but threw that up as well.. \nHe is throwing up bile, water, food. He is not throwing up blood, coffee ground emesis\nHe does not have a liver disease, no jaundice. \nHe is a kidney transplant since 2018, on immunosuppressant meds. \nHe does not have abd pain. He is on Augmentin , last day )2 weeks ) for a UTI. \nGtubes is just for supplement, so he is taking PO but most of meds through Gtube. \nTemp 100-101. \nHe does not have any cold symptoms but very weak. \nPMH >stroke 2018 >left side weakness, no aphasia, some memory issues \nI provided information on the mobile health provider response time and advised the patient and/or caregiver to monitor reported signs and symptoms. I discussed the warning signs of when to seek emergency care.\n } This visit is for 69-year-old male with history including but not limited to kidney transplant, HTN, HLD, DM type I, stroke with left sided deficits. Patient sisters requested the visit to address ongoing weakness and confusion. Sisters also report several episodes of vomiting throughout the night.Mr. pascual patient is currently being treated for a UTI by his urologist with 10 days of Augmentin, has one day left. Daughter's report low-grade fevers throughout the night. Daughters deny the patient having any chest pain, shortness of breath, headaches, dizziness or diarrhea. Sister patient has been unable to tolerate anything via G-tube or PO. Allergy list on file is confirmed. Poppy sylvester urologist is sending out VNA today to collect a urine culture and labs Patient presents awake and alert, in no acute distress and speaking full sentences. His vital signsare reasonably stable and is temp is 100.4??. Baseline neurological exam. Lungs are clear throughout [...] and reasonable amount of risk given the benefitof avoiding an ED visit. I provided education [...] and reasonable amount of risk given the benefitof avoiding an ED visit. I provided education [...] questions and are agreeable to this plan. ORAL_MEDICATION, EKG, POC_BLOODWORK, POC_FLU_STREP, URINE_DIPSTICK, COVID_TEST Written by Inocencio Worthington on 2024-11-30
--- OUTSIDE RECORDS SUMMARY | 2025-03-04 15:30 | XMS_ITS | Encounter Summary ---
Author Organization [facility] Address [address] [place] [address] Care Team Providers Care Manager Motor Name Role Phone Michelle Rucker MD Primary Care Provider + Encounter Details Date Type Department Care Team (Late st Contact Info) Description 08/14/2024 Lab Requisition [facility] - Main Lab [address] [place] [address] Michelle Rucker MD [address] [phone] Diarrhea, unspecified Social History Tobacco Use Types [...] Antigen Negative Negative 08/14/2024 11:06 AM EST [facility] C difficile Toxins A+B, EIA Negative Negative 08/14/2024 11:06 AM EST [facility] Comment:NEGATIVE FOR TOXIN P RODUCING CLOSTRIDIOIDES DIFFICILE, NO ADDITIONAL TESTING IS NECESSARY. Stool Rectum structure / Unknown 08/13/2024 5:00 PM EST 08/14/2024 9:36 AM EST us Michelle Rucker MD LAB MICROBIOLOGY - GENER AL ORDERABLES Final Result [facility] [address] [place] [address], documented in this encounter Visit Diagnoses Diagnosis Diarrhea, unspecified documented in this encounter Additional Health Concerns Infection Onset Date Last Indicated Resolved Time C. difficile Rule-Out 08/14/2024 08/13/20242024 11:06 AM EST MDRO (other) 12/15/2024 12/15/2024 documented as of this encounter Care Teams Manager Motor Relationship Specialty Start Date End Date Michelle Rucker MD [address] [place] [id number] PCP - General Family Medicine 05/06/24 documented as of this encounter
--- OUTSIDE RECORDS SUMMARY | 2025-03-04 15:30 | XMS_ITS | Encounter Summary ---
Author Organization [facility] Address [address] [place] [phone] Care Team Providers Care Cooler Man Name Role Phone Michelle Rucker MD Primary Care Provider + Encounter Details Date Type Department Care Team (Late st Contact Info) Description 08/08/2024 Lab Requisition [facility] - Main Lab [address] [place] [address] Michelle Rucker MD [address] [phone] Hyperlipidemia, unspecified Social History Tobacco Use Types [...] LAB CHEMISTRY METHOD 08/08/2024 9:26 AM EST [facility] Potassium 4.6 3.5 - 5.5 mmol/L LAB CHEMISTRY METHOD 08/08/2024 9:26 AM EST [facility] Chloride 96 96 - 110 mmol/L LAB CHEMISTRY METHOD 08/08/2024 9:26 AM EST [facility] CO2 28 21 - 32 mmol/L LAB CHEMISTRY METHOD 08/08/2024 9:[address] [facility] Anion Gap 6 3 - 11 LAB CHEMISTRY METHOD 08/08/2024 9:[address] [facility] Glucose 257(H) 70 - 100 mg/dL LAB CHEMISTRY METHOD 08/08/2024 9:[address] [facility] BUN 25 5 - 25 mg/dL LAB CHEMISTRY METHOD 08/08/2024 9:[address] [facility] Creatinine 1.44(H) 0.70 - 1.30 mg/dL LAB CHEMISTRY METHOD 08/08/2024 9:[address] [facility] eGFR 54(L) >=60 mL/min/1. 73m2 LAB CHEMISTRY METHOD 08/08/2024 9:[address] [facility] Comment:Calculation based on the Chronic Kidney Disease Epidemiology Collaboration (CKD-EPI) equation refit without adjustment for race. BUN/Creatinine Ratio 17.4 LAB CHEMISTRY METHOD 08/08/2024 9:[address] [facility] Calcium 9.4 8.5 - 10.5 mg/dL LAB CHEMISTRY METHOD 08/08/2024 9:[address] [facility] Blood Venous blood specimen / Unknown Venipuncture / Unknown 08/08/2024 6:19 AM EST 08/08/2024 7:50 AM EST us Michelle Rucker MD LAB BLOOD ORDERABLES Fin al Result [facility] [address] [place] [address], documented in this encounter Visit Diagnoses Diagnosis Hyperlipidemia, unspecified documented in this encounter Additional Health Concerns Infection Onset Date Last Indicated Resolved Time C. difficile Rule-Out 08/14/2024 08/13/20242024 11:06 AM EST MDRO (other) 12/15/2024 12/15/2024 documented as of this encounter Care Teams Cooler Man Relationship Specialty Start Date End Date Michelle Rucker MD [address] [place] [address] PCP - General Family Medicine 05/06/24 documented as of this encounter
--- OUTSIDE RECORDS SUMMARY | 2025-03-04 15:30 | XMS_ITS | Encounter Summary ---
Author Organization [facility], Address [address] [address] Phone Care Team Providers Care Manufacturing Director Name Role Phone Tennille Linton Sloane NATHAN Primary Care Provider + Reason for Visit * Reason Comments Med Refill Encounter Details Date Type Department Care Team (Late st Contact Info) Description 07/11/2021 Refill [facility] [address] [place] [address] Denise Isbell PA [address] [place] [address] [place] [address] Social History Tobacco Use Types [...] [facility] [address] [place] [phone] Andrey Phan MD [address] [place] [address] [place] [address] documented as of this encounter Visit Diagnoses Not on filedocumented in this encounter Care Teams Manufacturing Director Relationship Specialty Start Date End Date Tennille Linton NP [address] [place] [phone] PCP - General Nurse Practitioner 08/07/23 documented as of this encounter
--- OUTSIDE RECORDS SUMMARY | 2025-03-04 15:30 | XMS_ITS | Encounter Summary ---
Author Organization [facility] Address [address] [place] [address] Encounters * CPT with Inocencio Worthington at [facility] on 2024-12-07 { reasonForRequest : aguero catheter placement , patientReports :"Inability to fully empty bladder , denies :[ Unable to void greater than 5 hour s , Erection that will not go away after 2 hours , Fall or trauma that results i n urinary incontinence in the setting of pain , Fall or injury that results in incontinence in the absence of pain , Lower back pain either unilateral or bilateral, unable to void, painful urination -hematuria , Painful urination , Frequent and increased urination with flank pain , Painful urination with or without fever ], chiefComplaints : Urinary Catheter/Nephrostomy Tube Problems , pmh : Organ Transplant, Hypertension, Diabetes Mellitus Type 2, Hyperlipidemia, Stroke , allergies : Dilaudid, Oxycodone, Percocet , otherAllergies :null, painAssessment :&quot ; , visitOutcome : , additionalComments : 69 y.o male complains of Urinary Catheter/Nephrostomy Tube Problems\nPatient had a TURP done last . Aguero catheter was removed at 9am this morning at [facility]. Catheter was a 22Fr.Urologist is Dr. Betancur. Patient has been unable to void since 9am. No complaints of pain at this time. Was treated1 week ago for UTI by [facility], finished antibiotic today. Denies fever/ chills. \nI provided information on the mobile health provider response time and advised the patient and/or caregiver to monitorreported signs and symptoms. I discussed the warning signs of when to seek emergency care. } This visit is for 69-year-old male [...] with IV Rocephin and IV fluids, RX Cefpod oxime. Patient states all of his urinary symptoms have completely resolved. Sister states that normally when he has a catheter removed it takes several tries before he is able to void on his own. Urology was requesting a 22 [place] be placed, I contacted the office and let them know that the largestsize I carry in 18 [place] which they were okay with. Urology will see the patient next week for a voiding trial. Patient presents awake and alert, in no acute distress and speaking full sentences. His vital signsare reasonably stable and he is afebrile. Baseline neurological exam. Lungs are clear throughout auscultation. Abdomen is soft, nontender, nondistended. No CVA tenderness. No lower extremity edema. I placed an 18 [place] Aguero catheter, approximately 600 ML of urine drained, patient tolerated procedure well. We discussed the diagnostic uncertainty of home visits and the risk associated with this. In this case, the patient and I felt this to be an acceptable and reasonable amount of risk given the benefitof avoiding an ED visit. I recommend the patient stay well hydrated and call back for any new or worsening symptoms. The patient and his family were given the opportunity to ask questions and are agreeable to this plan. URINE_DIPSTICK, WOUND_CARE, STRAIGHT_CATHETERIZATION, CULTURE_URINE Written by Inocencio Worthington on 2024-12-07
--- OUTSIDE RECORDS SUMMARY | 2025-03-04 15:30 | XMS_ITS | Continuity of Care Document ---
Author Name [facility] Address [address] [place] [address] Organization Unknown Address [address] [place] [address] Medications No known medications Problems No known problems
--- OUTSIDE RECORDS SUMMARY | 2025-03-04 15:30 | XMS_ITS | Encounter Summary ---
Author Organization [facility] Address [address] [place] [phone] Care Team Providers Care Area Captain Name Role Phone Michelle Rucker MD Primary Care Provider + Encounter Details Date Type Department Care Team (Late st Contact Info) Description 08/10/[address] [facility] - Main Lab [address] [place] [address] Michelle Rucker MD [address] [phone] Type 1 diabetes mellitus without complications (CMS/HCC [...] EST Type 1 diabetes mellitus without complications (CMS/[facility]) documented in this encounter Results * (ABNORMAL) Hemoglobin A1c (08/10/2024 5:55 AM EST) Hemoglobin A1C 8.5(H) <6.5 % LAB CHEMISTRY METHOD 08/10/2024 1:40 PM EST [facility] Mean Bld Glu Estim. 197 mg/dL LAB CHEMISTRY METHOD 08/10/2024 1:40 PM EST [facility] Blood Venous blood specimen / Unknown Venipuncture / Unknown 08/10/2024 5:55 AM EST 08/10/2024 10:32 AM EST Michelle Rucker MD LAB BLOOD ORDERABLES Fin al Result [facility] [address] [place] [address], documented in this encounter Visit Diagnoses Diagnosis Type 1 diabetes mellitus without complications (CMS/HCC V24, CMS/HCC V28) documented in this encounter Additional Health Concerns Infection Onset Date Last Indicated Resolved Time C. difficile Rule-Out 08/14/2024 08/13/20242024 11:06 AM EST MDRO (other) 12/15/2024 12/15/2024 documented as of this encounter Care Teams Area Captain Relationship Specialty Start Date End Date Michelle Rucker MD [address] [place] [phone] PCP - General Family Medicine 05/06/24 documented as of this encounter
--- OUTSIDE RECORDS SUMMARY | 2025-03-04 15:30 | XMS_ITS | Encounter Summary ---
Author Organization [facility] Address [address] [place] [phone] Care Team Providers Care Heavy Equipment Sales Associate Name Role Phone Michelle Rucker MD Primary Care Provider + Encounter Details Date Type Department Care Team (Late st Contact Info) Description 06/13/2024 Lab Requisition [facility] - Main Lab 299 [facility] [place] [address] Michelle Rucker MD [address] [phone] Hyperlipidemia, unspecified; Heart failure, unspecified (CMS/HCC V24, [...] mmol/L LAB CHEMISTRY METHOD 06/15/2024 1:26 PM [facility] Potassium 4.6 3.5 - 5.5 mmol/L LAB CHEMISTRY METHOD 06/15/2024 1:26 PM [facility] Chloride 106 96 - 110 mmol/L LAB CHEMISTRY METHOD 06/15/2024 1:26 PM [facility] CO2 24 21 - 32 mmol/L LAB CHEMISTRY METHOD 06/15/2024 1:26 PM [facility] Anion Gap 6 3 - 11 LAB CHEMISTRY METHOD 06/15/2024 1:26 PM [facility] Glucose 304(H) 70 - 100 mg/dL LAB CHEMISTRY METHOD 06/15/2024 1:26 PM [facility] BUN 32(H) 5 - 25 mg/dL LAB CHEMISTRY METHOD 06/15/2024 1:26 PM [facility] Creatinine 1.82(H) 0.70 - 1.30 mg/dL LAB CHEMISTRY METHOD 06/15/2024 1:26 PM [facility] eGFR 40(L) >=60 mL/min/1. 73m2 LAB CHEMISTRY METHOD 06/15/2024 1:26 PM [facility] Comment:Calculation based on the Chronic Kidney Disease Epidemiology Collaboration (CKD-EPI) equation refit without adjustment for race. BUN/Creatinine Ratio 17.6 LAB CHEMISTRY METHOD 06/15/2024 1:26 PM [facility] Calcium 10.1 8.5 - 10.5 mg/dL LAB CHEMISTRY METHOD 06/15/2024 1:26 PM [facility] Blood Venous blood specimen / Unknown Venipuncture / Unknown 06/15/2024 6:08 AM EST 06/15/2024 11:15 AM EST Michelle Rucker MD LAB BLOOD ORDERABLES Fin al Result [facility] [address] [place] [address], * (ABNORMAL) Complete blood count (06/15/2024 6:08 AM EST) WBC 7.4 4.8 - 10.8 K/mcL LAB HEMETOLOGY METHOD 06/15/2024 1:05 PM [facility] RBC 5.20 4.50 - 5.50 M/mcL LAB HEMETOLOGY METHOD 06/15/2024 1:05 PM [facility] Hemoglobin 13.1(L) 13.5 - 17.5 g/dL LAB HEMETOLOGY METHOD 06/15/2024 1:05 PM [facility] Hematocrit 42.1 42.0 - 54.0 % LAB HEMETOLOGY METHOD 06/15/2024 1:05 PM [facility] MCV 81.6 79.0 - 98.0 FL LAB HEMETOLOGY METHOD 06/15/2024 1:05 PM [facility] MCH 25.4(L) 27.0 - 32.0 pcg LAB HEMETOLOGY METHOD 06/15/2024 1:05 PM [facility] MCHC 31.1(L) 32.0 - 37.0 g/dL LAB HEMETOLOGY METHOD 06/15/2024 1:05 PM [facility] RDW 14.0 11.0 - 15.0 % LAB HEMETOLOGY METHOD 06/15/2024 1:05 PM [facility] Platelets 219 130 - 400 K/mcL LAB HEMETOLOGY METHOD 06/15/2024 1:05 PM [facility] MPV 11.4(H) 7.0 - 11.0 FL LAB HEMETOLOGY METHOD 06/15/2024 1:05 PM EST [facility] NRBC 0.0 <1.0 % LAB HEMETOLOGY METHOD 06/15/2024 1:05 PM EST [facility] NRBC Absolute 0.00 <0.10 K/mcL LAB HEMETOLOGY METHOD 06/15/2024 1:05 PM EST [facility] Blood Venous blood specimen / Unknown Venipuncture / Unknown 06/15/2024 6:08 AM EST 06/15/2024 11:15 AM EST us Michelle Rucker MD LAB BLOOD ORDERABLES Fin al Result [facility] [address] [place] [address], documented in this encounter Visit Diagnoses Diagnosis [...] documented as of this encounter Care Teams Heavy Equipment Sales Associate Relationship Specialty Start Date End Date Michelle Rucker MD [address] [place] [phone] PCP - General Family Medicine 05/06/24 documented as of this encounter
--- OUTSIDE RECORDS SUMMARY | 2025-03-04 15:30 | XMS_ITS | Encounter Summary ---
Author Organization [facility] Address [address] [place] [phone] Care Team Providers Care Customer Account Representative Name Role Phone Michelle Rucker MD Primary Care Provider + Encounter Details Date Type Department Care Team (Late st Contact Info) Description 08/06/2024 Lab Requisition [facility] - Main Lab 299 [facility] [place] [address] Michelle Rucker MD [address] [address] Vitamin D deficiency, unspecified; Malignant [...] (08/07/2024 6:48 AM EST) Pathologist [facility] Hemoglobin A1C 8.5(H) <6.5 % LAB CHEMISTRY METHOD 08/07/2024 11:25 AM EST [facility] Mean Bld Glu Estim. 197 mg/dL LAB CHEMISTRY METHOD 08/07/2024 11:25 AM EST [facility] Blood Venous blood specimen / Unknown Venipuncture / Unknown 08/07/2024 6:48 AM EST 08/07/2024 8:30 AM EST Michelle Rucker MD LAB BLOOD ORDERABLES Fin al Result Performing Organization Address [facility]/ZIP Co de Phone Number [facility] [address] [place] [address], * Vitamin D 25 hydroxy (08/07/2024 6:48 AM EST) [facility] Vit D, 25-Hydroxy 49.9 30.0 - 80.0 ng/mL LAB CHEMISTRY METHOD 08/07/2024 10:27 AM EST [facility] Blood Venous blood specimen / Unknown Venipuncture / Unknown 08/07/2024 6:48 AM EST 08/07/2024 8:30 AM EST Michelle Rucker MD LAB BLOOD ORDERABLES Fin al Result Performing Organization Address City/[facility]/ZIP Co de Phone Number [facility] [address] [place] [address], * Vitamin B12 (08/07/2024 6:48 AM EST) [facility] Vitamin B-12 670 250 - 900 pcg/mL LAB CHEMISTRY METHOD 08/07/2024 10:47 AM EST [facility] Blood Venous blood specimen / Unknown Venipuncture / Unknown 08/07/2024 6:48 AM EST 08/07/2024 8:30 AM EST Michelle Rucker MD LAB BLOOD ORDERABLES Fin al Result Performing Organization Address City/[facility]/ZIP Co de Phone Number [facility] [address] [place] [address], [place] [phone] * Folate (08/07/2024 6:48 AM EST) Folate 8.7 2.8 - 17.0 ng/ml LAB CHEMISTRY METHOD 08/07/2024 10:47 AM EST [facility] Blood Venous blood specimen / Unknown Venipuncture / Unknown 08/07/2024 6:48 AM EST 08/07/2024 8:30 AM EST Michelle Rucker MD LAB BLOOD ORDERABLES Fin al Result Performing Organization Address City/[facility]/ZIP Co de Phone Number [facility] [address] [place] [address], [place] [phone] * Magnesium (08/07/2024 6:48 AM EST) Magnesium 2.0 1.9 - 2.6 mg/dL LAB CHEMISTRY METHOD 08/07/2024 10:20 AM EST [facility] Blood Venous blood specimen / Unknown Venipuncture / Unknown 08/07/2024 6:48 AM EST 08/07/2024 8:30 AM EST Michelle Rucker MD LAB BLOOD ORDERABLES Fin al Result [facility] [address] [place] [address], [place] [phone] * (ABNORMAL) Comprehensive metabolic panel (08/07/2024 6:48 AM EST) Sodium 134 133 - 145 mmol/L LAB CHEMISTRY METHOD 08/07/2024 10:47 AM [facility] Potassium 4.7 3.5 - 5.5 mmol/L LAB CHEMISTRY METHOD 08/07/2024 10:47 AM [facility] Chloride 100 96 - 110 mmol/L LAB CHEMISTRY METHOD 08/07/2024 10:47 AM [facility] CO2 27 21 - 32 mmol/L LAB CHEMISTRY METHOD 08/07/2024 10:47 AM [facility] Anion Gap 7 3 - 11 LAB CHEMISTRY METHOD 08/07/2024 10:47 AM [facility] Glucose 185(H) 70 - 100 mg/dL LAB CHEMISTRY METHOD 08/07/2024 10:47 AM [facility] BUN 23 5 - 25 mg/dL LAB CHEMISTRY METHOD 08/07/2024 10:47 AM [facility] Creatinine 1.41(H) 0.70 - 1.30 mg/dL LAB CHEMISTRY METHOD 08/07/2024 10:47 AM [facility] eGFR 55(L) >=60 mL/min/1. 73m2 LAB CHEMISTRY METHOD 08/07/2024 10:47 AM [facility] Comment:Calculation based on the Chronic Kidney Disease Epidemiology Collaboration (CKD-EPI) equation refit without adjustment for race. BUN/Creatinine Ratio 16.3 LAB CHEMISTRY METHOD 08/07/2024 10:47 AM [facility] Calcium 9.3 8.5 - 10.5 mg/dL LAB CHEMISTRY METHOD 08/07/2024 10:47 AM [facility] AST (SGOT) 15 10 - 42 unit/L LAB CHEMISTRY METHOD 08/07/2024 10:47 AM [facility] ALT (SGPT) 13 10 - 60 unit/L LAB CHEMISTRY METHOD 08/07/2024 10:47 AM [facility] Alkaline Phosphatase 76 42 - 121 unit/L LAB CHEMISTRY METHOD 08/07/2024 10:47 AM [facility] Total Protein 6.6 6.0 - 8.0 g/dL LAB CHEMISTRY METHOD 08/07/2024 10:47 AM [facility] Albumin 2.1(L) 3.2 - 5.0 g/dL LAB CHEMISTRY METHOD 08/07/2024 10:47 AM [facility] Total Bilirubin 0.3 0.0 - 1.4 mg/dL LAB CHEMISTRY METHOD 08/07/2024 10:47 AM [facility] Blood Venous blood specimen / Unknown Venipuncture / Unknown 08/07/2024 6:48 AM EST 08/07/2024 8:30 AM EST Michelle Rucker MD LAB BLOOD ORDERABLES Fin al Result [facility] [address] [place] [address], * (ABNORMAL) Complete blood count (08/07/2024 6:48 AM EST) WBC 9.7 4.8 - 10.8 K/mcL LAB HEMETOLOGY METHOD 08/07/2024 9:54 AM [facility] RBC 3.80(L) 4.50 - 5.50 M/[facility] LAB HEMETOLOGY METHOD 08/07/2024 9:54 AM [facility] Hemoglobin 9.7(L) 13.5 - 17.5 g/dL LAB HEMETOLOGY METHOD 08/07/2024 9:54 AM [facility] Hematocrit 31.1(L) 42.0 - 54.0 % LAB HEMETOLOGY METHOD 08/07/2024 9:54 AM [facility] MCV 82.3 79.0 - 98.0 FL LAB HEMETOLOGY METHOD 08/07/2024 9:54 AM EST [facility] MCH 25.7(L) 27.0 - 32.0 pcg LAB HEMETOLOGY METHOD 08/07/2024 9:54 AM [facility] MCHC 31.2(L) 32.0 - 37.0 g/dL LAB HEMETOLOGY METHOD 08/07/2024 9:54 AM EST [facility] RDW 15.9(H) 11.0 - 15.0 % LAB HEMETOLOGY METHOD 08/07/2024 9:54 AM EST [facility] Platelets 277 130 - 400 K/mcL LAB HEMETOLOGY METHOD 08/07/2024 9:54 AM [facility] MPV 10.8 7.0 - 11.0 FL LAB HEMETOLOGY METHOD 08/07/2024 9:54 AM EST [facility] NRBC 0.0 <1.0 % LAB HEMETOLOGY METHOD 08/07/2024 9:54 AM [facility] NRBC Absolute 0.00 <0.10 K/mcL LAB HEMETOLOGY METHOD 08/07/2024 9:54 AM [facility] Blood Venous blood specimen / Unknown Venipuncture / Unknown 08/07/2024 6:48 AM EST 08/07/2024 8:30 AM EST us Michelle Rucker MD LAB BLOOD ORDERABLES Fin al Result [facility] [address] [place] [address], documented in this encounter Visit Diagnoses Diagnosis Vitamin D deficiency, unspecified Malignant (primary) neoplasm, unspecified (CMS/HCC V24, CMS/HCC V28) Kidney transplant status Type 1 diabetes mellitus with diabetic neuropathy, unspecified (CMS/HCC V24, CMS/HCC V28) 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 difficile Rule-Out 08/14/2024 08/13/20242024 11:06 AM EST MDRO (other) 12/15/2024 12/15/2024 documented as of this encounter Care Teams Customer Account Representative Relationship Specialty Start Date End Date Michelle Rucker MD [address] [place] [address] PCP - General Family Medicine 05/06/24 documented as of this encounter
--- OUTSIDE RECORDS SUMMARY | 2025-03-04 15:30 | XMS_ITS | Encounter Summary ---
Author Organization [facility] Address [address] [place] [phone] Care Team Providers Care Manager Market Development Name Role Phone Michelle Rucker MD Primary Care Provider + Encounter Details Date Type Department Care Team (Late st Contact Info) Description 09/25/2024 Lab Requisition [facility] - Main Lab 299 [facility] [place] [address] Michelle Rucker MD [address] [place] [phone] Malignant (primary) neoplasm, unspecified (CMS/HCC V24, CMS/HCC [...] kidney disease, unspecified documented in this encounter Additional Health Concerns Infection Onset Date Last Indicated Resolved Time MDRO (other) 12/15/2024 12/15/2024 documented as of this encounter Care Teams Manager Market Development Relationship Specialty Start Date End Date Michelle Rucker MD [address] [place] [phone] PCP - General Family Medicine 05/06/24 documented as of this encounter
--- OUTSIDE RECORDS SUMMARY | 2025-03-04 15:30 | XMS_ITS | Encounter Summary ---
Author Organization [facility] Address [address] [place] [phone] Care Team Providers Care Manager Of Human Resources Name Role Phone Michelle Rucker MD Primary Care Provider + Encounter Details Date Type Department Care Team (Late st Contact Info) Description 08/19/2024 Lab Requisition [facility] - Main Lab 299 [facility] [place] [address] Michelle Rucker MD [address] [address] Type 1 diabetes mellitus with [...] mmol/L LAB CHEMISTRY METHOD 08/20/2024 11:10 AM [facility] Potassium 4.4 3.5 - 5.5 mmol/L LAB CHEMISTRY METHOD 08/20/2024 11:10 AM [facility] Chloride 98 96 - 110 mmol/L LAB CHEMISTRY METHOD 08/20/2024 11:10 AM [facility] CO2 31 21 - 32 mmol/L LAB CHEMISTRY METHOD 08/20/2024 11:10 AM [facility] Anion Gap 4 3 - 11 LAB CHEMISTRY METHOD 08/20/2024 11:10 AM [facility] Glucose 158(H) 70 - 100 mg/dL LAB CHEMISTRY METHOD 08/20/2024 11:10 AM [facility] BUN 28(H) 5 - 25 mg/dL LAB CHEMISTRY METHOD 08/20/2024 11:10 AM [facility] Creatinine 1.21 0.70 - 1.30 mg/dL LAB CHEMISTRY METHOD 08/20/2024 11:10 AM [facility] eGFR 66 >=60 mL/min/1. 73m2 LAB CHEMISTRY METHOD 08/20/2024 11:10 AM [facility] Comment:Calculation based on the Chronic Kidney Disease Epidemiology Collaboration (CKD-EPI) equation refit without adjustment for race. BUN/Creatinine Ratio 23.1 LAB CHEMISTRY METHOD 08/20/2024 11:10 AM [facility] Calcium 9.7 8.5 - 10.5 mg/dL LAB CHEMISTRY METHOD 08/20/2024 11:10 AM [facility] Blood Venous blood specimen / Unknown Venipuncture / Unknown 08/20/2024 7:05 AM EST 08/20/2024 9:40 AM EST us Michelle Rucker MD LAB BLOOD ORDERABLES Fin al Result [facility] [address] [place] [address], * (ABNORMAL) Complete blood count (08/20/2024 7:05 AM EST) WBC 8.6 4.8 - 10.8 K/mcL LAB HEMETOLOGY METHOD 08/20/2024 9:55 AM [facility] RBC 3.90(L) 4.50 - 5.50 M/mcL LAB HEMETOLOGY METHOD 08/20/2024 9:55 AM [facility] Hemoglobin 10.0(L) 13.5 - 17.5 g/dL LAB HEMETOLOGY METHOD 08/20/2024 9:55 AM [facility] Hematocrit 32.3(L) 42.0 - 54.0 % LAB HEMETOLOGY METHOD 08/20/2024 9:55 AM [facility] MCV 83.2 79.0 - 98.0 FL LAB HEMETOLOGY METHOD 08/20/2024 9:55 AM [facility] MCH 25.8(L) 27.0 - 32.0 pcg LAB HEMETOLOGY METHOD 08/20/2024 9:55 AM [facility] MCHC 31.0(L) 32.0 - 37.0 g/dL LAB HEMETOLOGY METHOD 08/20/2024 9:55 AM [facility] RDW 14.8 11.0 - 15.0 % LAB HEMETOLOGY METHOD 08/20/2024 9:55 AM [facility] Platelets 369 130 - 400 K/mcL LAB HEMETOLOGY METHOD 08/20/2024 9:55 AM [facility] MPV 10.0 7.0 - 11.0 FL LAB HEMETOLOGY METHOD 08/20/2024 9:55 AM EST [facility] NRBC 0.0 <1.0 % LAB HEMETOLOGY METHOD 08/20/2024 9:55 AM EST [facility] NRBC Absolute 0.00 <0.10 K/mcL LAB HEMETOLOGY METHOD 08/20/2024 9:55 AM EST [facility] Blood Venous blood specimen / Unknown Venipuncture / Unknown 08/20/2024 7:05 AM EST 08/20/2024 9:40 AM EST Michelle Rucker MD LAB BLOOD ORDERABLES Fin al Result [facility] [address] [place] [address], documented in this encounter Visit Diagnoses Diagnosis Type 1 diabetes mellitus with diabetic neuropathy, unspecified (CMS/HCC V24, CMS/HCC V28) 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
--- OUTSIDE RECORDS SUMMARY | 2025-03-04 15:30 | XMS_ITS | Continuity of Care Document ---
Author Name Inocencio Worthington Address [address] [place] [phone] Organization Unknown Address [address] [place] [address] Medications No known medications Problems No known problems
--- OUTSIDE RECORDS SUMMARY | 2025-03-04 15:30 | XMS_ITS | Encounter Summary ---
Author Organization [facility] Address [id number] [place] [address] Care Team Providers Care Radiagraph Operator Name Role Phone Michelle Rucker MD Primary Care Provider + Encounter Details Date Type Department Care Team (Late st Contact Info) Description 10/02/2024 Lab Requisition [facility] - Main Lab 299 [facility] [place] [address] Michelle Rucker MD [address] [phone] Immunodeficiency, unspecified ([facility] V24) Social History Tobacco Use Types Packs/Day [...] Routine 10/02/2024 6:50 AM EDT Immunodeficiency, unspecified ([facility] V24) CREATINE KINASE Routine 10/02/2024 6:50 AM EDT Immunodeficiency, unspecified ([facility] V24) RENAL FUNCTION PANEL Routine 10/02/2024 6:50 AM EDT Immunodeficiency, unspecified ([facility] V24) COMPREHENSIVE METABOLIC PANEL Routine 10/02/2024 6:50 AM EDT Immunodeficiency, unspecified ([facility] V24) documented in this encounter Results * (ABNORMAL) CBC auto differential (10/02/2024 6:50 AM EDT) [facility] Signature WBC 6.1 4.8 - 10.8 K/mcL LAB HEMETOLOGY METHOD 10/02/2024 9:04 AM [facility] RBC 4.20(L) 4.50 - 5.50 M/mcL LAB HEMETOLOGY METHOD 10/02/2024 9:04 AM [facility] Hemoglobin 10.4(L) 13.5 - 17.5 g/dL LAB HEMETOLOGY METHOD 10/02/2024 9:04 AM [facility] Hematocrit 33.7(L) 42.0 - 54.0 % LAB HEMETOLOGY METHOD 10/02/2024 9:04 AM [facility] MCV 80.8 79.0 - 98.0 FL LAB HEMETOLOGY METHOD 10/02/2024 9:04 AM [facility] MCH 24.9(L) 27.0 - 32.0 pcg LAB HEMETOLOGY METHOD 10/02/2024 9:04 AM [facility] MCHC 30.9(L) 32.0 - 37.0 g/dL LAB HEMETOLOGY METHOD 10/02/2024 9:04 AM [facility] RDW 14.6 11.0 - 15.0 % LAB HEMETOLOGY METHOD 10/02/2024 9:04 AM [facility] Platelets 270 130 - 400 K/mcL LAB HEMETOLOGY METHOD 10/02/2024 9:04 AM [facility] MPV 10.7 7.0 - 11.0 FL LAB HEMETOLOGY METHOD 10/02/2024 9:04 AM [facility] NRBC 0.0 <1.0 % LAB HEMETOLOGY METHOD 10/02/2024 9:04 AM [facility] NRBC Absolute 0.00 <0.10 K/mcL LAB HEMETOLOGY METHOD 10/02/2024 9:04 AM [facility] Neutrophils Relative 67.4 % LAB HEMETOLOGY METHOD 10/02/2024 9:04 AM [facility] Lymphocytes Relative 16.7 % LAB HEMETOLOGY METHOD 10/02/2024 9:04 AM [facility] Monocytes Relative 11.6 % LAB HEMETOLOGY METHOD 10/02/2024 9:04 AM [facility] Eosinophils Relative 3.3 % LAB HEMETOLOGY METHOD 10/02/2024 9:04 AM [facility] Basophils Relative 0.7 % LAB HEMETOLOGY METHOD 10/02/2024 9:04 AM [facility] Immature Granulocytes Relative 0.3 % LAB HEMETOLOGY METHOD 10/02/2024 9:04 AM [facility] Neutrophils Absolute 4.13 1.50 - 7.00 K/mcL LAB HEMETOLOGY METHOD 10/02/2024 9:04 AM [facility] Lymphocytes Absolute 1.02 1.00 - 5.00 K/mcL LAB HEMETOLOGY METHOD 10/02/2024 9:04 AM [facility] Monocytes Absolute 0.71 0.20 - 1.00 K/mcL LAB HEMETOLOGY METHOD 10/02/2024 9:04 AM EDT [facility] Eosinophils Absolute 0.20 0.00 - 0.50 K/[facility] LAB HEMETOLOGY METHOD 10/02/2024 9:04 AM EDT [facility] Basophils Absolute 0.04 0.00 - 0.20 K/[facility] LAB HEMETOLOGY METHOD 10/02/2024 9:04 AM EDT [facility] Immature Granulocytes Absolute 0.02 0.00 - 0.03 K/[facility] LAB HEMETOLOGY METHOD 10/02/2024 9:04 AM EDT [facility] Blood Venous blood specimen / Unknown Venipuncture / Unknown 10/02/2024 6:50 AM EDT 10/02/2024 8:49 AM EDT Michelle Rucker MD LAB BLOOD ORDERABLES Fin al Result Performing Organization Address City/[facility]/ZIP Co de Phone Number [facility] [address] [place] [address], [place] [phone] * Parathyroid hormone intact (10/02/2024 6:50 AM EDT) [facility] PTH 45.7 18.5 - 88.0 pcg/mL LAB CHEMISTRY METHOD 10/02/2024 10:52 AM EDT [facility] Blood Venous blood specimen / Unknown Venipuncture / Unknown 10/02/2024 6:50 AM EDT 10/02/2024 8:49 AM EDT Michelle Rucker MD LAB BLOOD ORDERABLES Fin al Result [facility] [address] [place] [address], [place] [phone] * BK virus molecular study quantitative (10/02/2024 6:50 AM EDT) [facility] BK Virus DNA Qual Plasma Not detected Not detected 10/05/2024 12:[address] [facility] BK Virus DNA Quant Plasma <125 <125 Copies/mL 10/05/2024 12:[address] [facility] Log BK Virus DNA, Plasma <2.10 <2.10 Log (10) Copies/mL 10/05/2024 12:[address] [facility] Comment: This test utilizes a polymerase chain reaction to amplify sequences from the VP1 regions of the BK virus genome. Real-time detection and quantification are used to determine the viral copy number. The analytical measurement range is 125 to 5 million copies/mL (2.10 to 6.70 log(10) copies/mL). The qualitative limit of detection is 100 copies/mL(1.78 log(10) copies/mL). Specimens reported as DETECTED but <125 copies/mL contain detectable levels of BK virus DNA but the viral load is below the limit of quantitation. A Not detected result does not rule out infection. This test uses commercial reagents that have not been approved or cleared by the FDA. The FDA has determined that such clearance or approval is not necessary. The performance characteristics of this procedure were determined by [facility]. This test is performed pursuant to a license agreement with [employer] Test performed at [facility], [address] , [place], [place] [id number] Brittanie Horan MD, PhD - Filling Hauler Blood Venous blood specimen / Unknown Venipuncture / Unknown 10/02/2024 6:50 AM EDT 10/02/2024 8:49 AM EDT us Michelle Rucker MD LAB BLOOD ORDERABLES Fin al Result [facility] [address] [place] [address] * (ABNORMAL) Hemoglobin A1c (10/02/2024 6:50 AM EDT) [facility] Hemoglobin A1C 7.3(H) <6.5 % LAB CHEMISTRY METHOD 10/02/2024 2:09 PM EDT [facility] Mean Bld Glu Estim. 163 mg/dL LAB CHEMISTRY METHOD 10/02/2024 2:09 PM EDT [facility] Blood Venous blood specimen / Unknown Venipuncture / Unknown 10/02/2024 6:50 AM EDT 10/02/2024 8:49 AM EDT Michelle Rucker MD LAB BLOOD ORDERABLES Fin al Result Performing Organization Address [facility]/ZIP Co de Phone Number [facility] [address] [place] [address], [place] [phone] * Creatine kinase (10/02/2024 6:50 AM EDT) [facility] Total CK 27 22 - 269 unit/L LAB CHEMISTRY METHOD 10/02/2024 9:31 AM EDT [facility] Blood Venous blood specimen / Unknown Venipuncture / Unknown 10/02/2024 6:50 AM EDT 10/02/2024 8:49 AM EDT Michelle Rucker MD LAB BLOOD ORDERABLES Fin al Result Performing Organization Address [facility] de Phone Number [facility] [address] [place] [address], [place] [phone] * (ABNORMAL) Renal function panel (10/02/2024 6:50 AM EDT) [facility] Sodium 139 133 - 145 mmol/L LAB CHEMISTRY METHOD 10/02/2024 9:31 AM EDT [facility] Potassium 4.5 3.5 - 5.5 mmol/L LAB CHEMISTRY METHOD 10/02/2024 9:31 AM EDT [facility] Chloride 105 96 - 110 mmol/L LAB CHEMISTRY METHOD 10/02/2024 9:31 AM EDT [facility] CO2 30 21 - 32 mmol/L LAB CHEMISTRY METHOD 10/02/2024 9:31 AM [facility] Anion Gap 4 3 - 11 LAB CHEMISTRY METHOD 10/02/2024 9:31 AM [facility] Glucose 129(H) 70 - 100 mg/dL LAB CHEMISTRY METHOD 10/02/2024 9:31 AM [facility] BUN 32(H) 5 - 25 mg/dL LAB CHEMISTRY METHOD 10/02/2024 9:31 AM [facility] Creatinine 1.26 0.70 - 1.30 mg/dL LAB CHEMISTRY METHOD 10/02/2024 9:31 AM [facility] eGFR 63 >=60 mL/min/1. 73m2 LAB CHEMISTRY METHOD 10/02/2024 9:31 AM [facility] Comment: Calculation based on the Chronic Kidney Disease Epidemiology Collaboration (CKD-EPI) equation refit without adjustment for race. Calculation based on the Chronic Kidney Disease Epidemiology Collaboration (CKD-EPI) equation refit without adjustment for race. BUN/Creatinine Ratio 25.4 LAB CHEMISTRY METHOD 10/02/2024 9:31 AM [facility] Albumin 2.6(L) 3.2 - 5.0 g/dL LAB CHEMISTRY METHOD 10/02/2024 9:31 AM [facility] Calcium 9.6 8.5 - 10.5 mg/dL LAB CHEMISTRY METHOD 10/02/2024 9:31 AM [facility] Phosphorus 3.5 2.5 - 4.5 mg/dL LAB CHEMISTRY METHOD 10/02/2024 9:31 AM [facility] Blood Venous blood specimen / Unknown Venipuncture / Unknown 10/02/2024 6:50 AM EDT 10/02/2024 8:49 AM EDT us Michelle Rucker MD LAB BLOOD ORDERABLES Fin al Result [facility] [address] [place] [address], * (ABNORMAL) Comprehensive metabolic panel (10/02/2024 6:50 AM EDT) [facility] Signature Sodium 139 133 - 145 mmol/L LAB CHEMISTRY METHOD 10/02/2024 9:31 AM [facility] Potassium 4.5 3.5 - 5.5 mmol/L LAB CHEMISTRY METHOD 10/02/2024 9:31 AM [facility] Chloride 105 96 - 110 mmol/L LAB CHEMISTRY METHOD 10/02/2024 9:31 AM [facility] CO2 30 21 - 32 mmol/L LAB CHEMISTRY METHOD 10/02/2024 9:31 AM [facility] Anion Gap 4 3 - 11 LAB CHEMISTRY METHOD 10/02/2024 9:31 AM [facility] Glucose 129(H) 70 - 100 mg/dL LAB CHEMISTRY METHOD 10/02/2024 9:31 AM [facility] BUN 32(H) 5 - 25 mg/dL LAB CHEMISTRY METHOD 10/02/2024 9:31 AM [facility] Creatinine 1.26 0.70 - 1.30 mg/dL LAB CHEMISTRY METHOD 10/02/2024 9:31 AM [facility] eGFR 63 >=60 mL/min/1. 73m2 LAB CHEMISTRY METHOD 10/02/2024 9:31 AM [facility] Comment:Calculation based on the Chronic Kidney Disease Epidemiology Collaboration (CKD-EPI) equation refit without adjustment for race. BUN/Creatinine Ratio 25.4 LAB CHEMISTRY METHOD 10/02/2024 9:31 AM [facility] Calcium 9.6 8.5 - 10.5 mg/dL LAB CHEMISTRY METHOD 10/02/2024 9:31 AM [facility] AST (SGOT) 14 10 - 42 unit/L LAB CHEMISTRY METHOD 10/02/2024 9:31 AM EDT [facility] ALT (SGPT) 10 10 - 60 unit/L LAB CHEMISTRY METHOD 10/02/2024 9:31 AM EDT [facility] Alkaline Phosphatase 70 42 - 121 unit/L LAB CHEMISTRY METHOD 10/02/2024 9:31 AM EDT [facility] Total Protein 6.8 6.0 - 8.0 g/dL LAB CHEMISTRY METHOD 10/02/2024 9:31 AM EDT [facility] Albumin 2.6(L) 3.2 - 5.0 g/dL LAB CHEMISTRY METHOD 10/02/2024 9:31 AM EDT [facility] Total Bilirubin 0.3 0.0 - 1.4 mg/dL LAB CHEMISTRY METHOD 10/02/2024 9:31 AM EDT [facility] Blood Venous blood specimen / Unknown Venipuncture / Unknown 10/02/2024 6:50 AM EDT 10/02/2024 8:49 AM EDT us Michelle Rucker MD LAB BLOOD ORDERABLES Fin al Result [facility] [address] [place] [address], documented in this encounter Visit Diagnoses Diagnosis Immunodeficiency, unspecified (CMS/HCC V24) documented in this encounter Additional Health Concerns Infection Onset Date Last Indicated Resolved Time MDRO (other) 12/15/2024 12/15/2024 documented as of this encounter Care Teams Radiagraph Operator Relationship Specialty Start Date End Date Michelle Rucker MD [address] [place] [phone] PCP - General Family Medicine 05/06/24 documented as of this encounter
--- OUTSIDE RECORDS SUMMARY | 2025-03-04 15:30 | XMS_ITS | Encounter Summary ---
Author Organization [facility] Address [address] [place] [address] Care Team Providers Care Nut Process Helper Name Role Phone Michelle Rucker MD Primary Care Provider + Encounter Details Date Type Department Care Team (Late st Contact Info) Description 10/13/2024 Lab Requisition [facility] - Main Lab 299 [facility] [place] [address] Michelle Rucker MD [address] [address] Encounter for therapeutic drug level [...] developed and the performance characteristics determined by [facility]. This confirmation testing has not been cleared or approved by the FDA. The laboratory is regulated under CLIA as qualified to perform high-complexity testing. This test is used for patient testing purposes. It should not be regarded as investigational or for research. Test performed at [facility], [address], [place] [address] Brittanie Horan MD, PhD - Water Pollution Scientist Blood Venous blood specimen / Unknown Venipuncture / Unknown 10/13/2024 6:50 AM EDT 10/13/2024 8:10 AM EDT Michelle Rucker MD LAB BLOOD ORDERABLES Fin al Result [facility] [address] [place] [address] documented in this encounter Visit Diagnoses Diagnosis Encounter for therapeutic drug level monitoring documented in this encounter Additional Health Concerns Infection Onset Date Last Indicated Resolved Time MDRO (other) 12/15/2024 12/15/2024 documented as of this encounter Care Teams Nut Process Helper Relationship Specialty Start Date End Date Michelle Rucker MD [address] [phone] PCP - General Family Medicine 05/06/24 documented as of this encounter
--- OUTSIDE RECORDS SUMMARY | 2025-03-04 15:30 | XMS_ITS | Encounter Summary ---
Author Organization [facility] Address [id number] [place] [phone] Care Team Providers Care Level Vial Marker Name Role Phone Michelle Rucker MD Primary Care Provider + Encounter Details Date Type Department Care Team (Late st Contact Info) Description 07/21/2024 Lab Requisition [facility] - Main Lab 299 [facility] [place] [address] Michelle Rucker MD [address] [phone] Vitamin D deficiency, unspecified; Type 1 diabetes [...] documented as of this encounter Care Teams Level Vial Marker Relationship Specialty Start Date End Date Michelle Rucker MD [address] [phone] PCP - General Family Medicine 05/06/24 documented as of this encounter
--- OUTSIDE RECORDS SUMMARY | 2025-03-04 15:30 | XMS_ITS | Encounter Summary ---
Author Organization [facility] Address [id number] [place] [phone] Care Team Providers Care Furniture Removalist Name Role Phone Michelle Rucker MD Primary Care Provider + Encounter Details Date Type Department Care Team (Late st Contact Info) Description 07/24/2024 Lab Requisition [facility] - Main Lab [address] [facility] [place] [address] Michelle Rucker MD [address] [address] Malignant (primary) neoplasm, unspecified (CMS/HCC V24, CMS/HCC [...] LAB CHEMISTRY METHOD 07/24/2024 11:18 AM EST [facility] Blood Venous blood specimen / Unknown Venipuncture / Unknown 07/24/2024 7:23 AM EST 07/24/2024 9:40 AM EST Michelle Rucker MD LAB BLOOD ORDERABLES Fin al Result Performing Organization Address City/[facility]/ZIP Co de Phone Number [facility] [address] [place] [address], * Vitamin D 25 hydroxy (07/24/2024 7:23 AM EST) Vit D, 25-Hydroxy 48.6 30.0 - 80.0 ng/mL LAB CHEMISTRY METHOD 07/24/2024 11:01 AM EST [facility] Blood Venous blood specimen / Unknown Venipuncture / Unknown 07/24/2024 7:23 AM EST 07/24/2024 9:40 AM EST Michelle Rucker MD LAB BLOOD ORDERABLES Fin al Result [facility] [address] [place] [address], * Folate (07/24/2024 7:23 AM EST) Folate 9.0 2.8 - 17.0 ng/ml LAB CHEMISTRY METHOD 07/24/2024 11:18 AM EST [facility] Blood Venous blood specimen / Unknown Venipuncture / Unknown 07/24/2024 7:23 AM EST 07/24/2024 9:40 AM EST Michelle Rucker MD LAB BLOOD ORDERABLES Fin al Result Performing Organization Address [facility]/ZIP Co de Phone Number [facility] [address] [place] [address], * (ABNORMAL) Magnesium (07/24/2024 7:23 AM EST) Magnesium 1.7(L) 1.9 - 2.6 mg/dL LAB CHEMISTRY METHOD 07/24/2024 10:52 AM EST [facility] Blood Venous blood specimen / Unknown Venipuncture / Unknown 07/24/2024 7:23 AM EST 07/24/2024 9:40 AM EST Michelle Rucker MD LAB BLOOD ORDERABLES Fin al Result Performing Organization Address [facility] Co de Phone Number [facility] [address] [place] [address], * Thyroid stimulating hormone (07/24/2024 7:23 AM EST) TSH 3.67 0.40 - 4.00 mcIU/mL LAB CHEMISTRY METHOD 07/24/2024 11:01 AM EST [facility] Blood Venous blood specimen / Unknown Venipuncture / Unknown 07/24/2024 7:23 AM EST 07/24/2024 9:40 AM EST Michelle Rucker MD LAB BLOOD ORDERABLES Fin al Result Performing Organization Address City/[facility]/ZIP Co de Phone Number [facility] [address] [place] [address], [place] [phone] * (ABNORMAL) Hemoglobin A1c (07/24/2024 7:23 AM EST) Hemoglobin A1C 8.3(H) <6.5 % LAB CHEMISTRY METHOD 07/24/2024 1:50 PM EST [facility] Mean Bld Glu Estim. 192 mg/dL LAB CHEMISTRY METHOD 07/24/2024 1:50 PM [facility] Blood Venous blood specimen / Unknown Venipuncture / Unknown 07/24/2024 7:23 AM EST 07/24/2024 9:40 AM EST us Michelle Rucker MD LAB BLOOD ORDERABLES Fin al Result [facility] [address] [place] [address], * (ABNORMAL) Renal function panel (07/24/2024 7:23 AM EST) [facility] Sodium 130(L) 133 - 145 mmol/L LAB CHEMISTRY METHOD 07/24/2024 10:55 AM [facility] Potassium 5.3 3.5 - 5.5 mmol/L LAB CHEMISTRY METHOD 07/24/2024 10:55 AM [facility] Chloride 98 96 - 110 mmol/L LAB CHEMISTRY METHOD 07/24/2024 10:55 AM [facility] CO2 26 21 - 32 mmol/L LAB CHEMISTRY METHOD 07/24/2024 10:55 AM [facility] Anion Gap 6 3 - 11 LAB CHEMISTRY METHOD 07/24/2024 10:55 AM [facility] Glucose 335(H) 70 - 100 mg/dL LAB CHEMISTRY METHOD 07/24/2024 10:55 AM [facility] BUN 23 5 - 25 mg/dL LAB CHEMISTRY METHOD 07/24/2024 10:55 AM [facility] Creatinine 1.22 0.70 - 1.30 mg/dL LAB CHEMISTRY METHOD 07/24/2024 10:55 AM [facility] eGFR 65 >=60 mL/min/1. 73m2 LAB CHEMISTRY METHOD 07/24/2024 10:55 AM [facility] Comment:Calculation based on the Chronic Kidney Disease Epidemiology Collaboration (CKD-EPI) equation refit without adjustment for race. BUN/Creatinine Ratio 18.9 LAB CHEMISTRY METHOD 07/24/2024 10:55 AM [facility] Albumin 2.5(L) 3.2 - 5.0 g/dL LAB CHEMISTRY METHOD 07/24/2024 10:55 AM [facility] Calcium 9.4 8.5 - 10.5 mg/dL LAB CHEMISTRY METHOD 07/24/2024 10:55 AM [facility] Phosphorus 3.7 2.5 - 4.5 mg/dL LAB CHEMISTRY METHOD 07/24/2024 10:55 AM [facility] Blood Venous blood specimen / Unknown Venipuncture / Unknown 07/24/2024 7:23 AM EST 07/24/2024 9:40 AM EST Michelle Rucker MD LAB BLOOD ORDERABLES Fin al Result [facility] [address] [place] [address], * (ABNORMAL) Basic metabolic panel (07/24/2024 7:23 AM EST) Sodium 130(L) 133 - 145 mmol/L LAB CHEMISTRY METHOD 07/24/2024 10:55 AM [facility] Potassium 5.3 3.5 - 5.5 mmol/L LAB CHEMISTRY METHOD 07/24/2024 10:55 AM [facility] Chloride 98 96 - 110 mmol/L LAB CHEMISTRY METHOD 07/24/2024 10:55 AM [facility] CO2 26 21 - 32 mmol/L LAB CHEMISTRY METHOD 07/24/2024 10:55 AM [facility] Anion Gap 6 3 - 11 LAB CHEMISTRY METHOD 07/24/2024 10:55 AM [facility] Glucose 335(H) 70 - 100 mg/dL LAB CHEMISTRY METHOD 07/24/2024 10:55 AM [facility] BUN 23 5 - 25 mg/dL LAB CHEMISTRY METHOD 07/24/2024 10:55 AM [facility] Creatinine 1.22 0.70 - 1.30 mg/dL LAB CHEMISTRY METHOD 07/24/2024 10:55 AM [facility] eGFR 65 >=60 mL/min/1. 73m2 LAB CHEMISTRY METHOD 07/24/2024 10:55 AM [facility] Comment: Calculation based on the Chronic Kidney Disease Epidemiology Collaboration (CKD-EPI) equation refit without adjustment for race. Calculation based on the Chronic Kidney Disease Epidemiology Collaboration (CKD-EPI) equation refit without adjustment for race. BUN/Creatinine Ratio 18.9 LAB CHEMISTRY METHOD 07/24/2024 10:55 AM [facility] Calcium 9.4 8.5 - 10.5 mg/dL LAB CHEMISTRY METHOD 07/24/2024 10:55 AM [facility] Blood Venous blood specimen / Unknown Venipuncture / Unknown 07/24/2024 7:23 AM EST 07/24/2024 9:40 AM EST us Michelle Rucker MD LAB BLOOD ORDERABLES Fin al Result [facility] [address] [place] [address], * (ABNORMAL) Complete blood count (07/24/2024 7:23 AM EST) WBC 10.2 4.8 - 10.8 K/mcL LAB HEMETOLOGY METHOD 07/24/2024 10:29 AM EST [facility] RBC 4.40(L) 4.50 - 5.50 M/mcL LAB HEMETOLOGY METHOD 07/24/2024 10:29 AM [facility] Hemoglobin 11.3(L) 13.5 - 17.5 g/dL LAB HEMETOLOGY METHOD 07/24/2024 10:29 AM [facility] Hematocrit 36.1(L) 42.0 - 54.0 % LAB HEMETOLOGY METHOD 07/24/2024 10:29 AM [facility] MCV 82.8 79.0 - 98.0 FL LAB HEMETOLOGY METHOD 07/24/2024 10:29 AM [facility] MCH 25.9(L) 27.0 - 32.0 pcg LAB HEMETOLOGY METHOD 07/24/2024 10:29 AM [facility] MCHC 31.3(L) 32.0 - 37.0 g/dL LAB HEMETOLOGY METHOD 07/24/2024 10:29 AM [facility] RDW 16.6(H) 11.0 - 15.0 % LAB HEMETOLOGY METHOD 07/24/2024 10:29 AM [facility] Platelets 276 130 - 400 K/mcL LAB HEMETOLOGY METHOD 07/24/2024 10:29 AM [facility] MPV 10.5 7.0 - 11.0 FL LAB HEMETOLOGY METHOD 07/24/2024 10:29 AM [facility] NRBC 0.0 <1.0 % LAB HEMETOLOGY METHOD 07/24/2024 10:29 AM [facility] NRBC Absolute 0.00 <0.10 K/mcL LAB HEMETOLOGY METHOD 07/24/2024 10:29 AM [facility] Blood Venous blood specimen / Unknown Venipuncture / Unknown 07/24/2024 7:23 AM EST 07/24/2024 9:40 AM EST Michelle Rucker MD LAB BLOOD ORDERABLES Fin al Result [facility] [address] [place] [address], documented in this encounter Visit Diagnoses Diagnosis Malignant (primary) neoplasm, unspecified (CMS/[facility] V24, [facility] V28) Unspecified complication of kidney transplant Type 1 diabetes mellitus with diabetic neuropathy, unspecified (CMS/[facility] V24, [facility] V28) Gastro-esophageal reflux disease without esophagitis Vitamin D deficiency, unspecified documented in this encounter Additional Health Concerns Infection Onset Date Last Indicated Resolved Time C. difficile Rule-Out 08/14/2024 08/13/20242024 11:06 AM EST MDRO (other) 12/15/2024 12/15/2024 documented as of this encounter Care Teams Furniture Removalist Relationship Specialty Start Date End Date Michelle Rucker MD [address] [place] [id number] PCP - General Family Medicine 05/06/24 documented as of this encounter
--- OUTSIDE RECORDS SUMMARY | 2025-03-04 15:30 | XMS_ITS | Encounter Summary ---
Author Organization [facility] Address [address] [place] [address] Care Team Providers Care Manager Residential Name Role Phone Michelle Rucker MD Primary Care Provider + Encounter Details Date Type Department Care Team (Late st Contact Info) Description 09/08/[address] [facility] - Main Lab [address] [facility] [place] [address] Michelle Rucker MD [address] [address] Other jail (current) drug therapy; Benign prostatic hyperplasia without [...] LEVEL Routine 09/08/2024 7:02 AM EDT Other long distance operator (current) drug therapy Benign prostatic hyperplasia without [...] developed and the performance characteristics determined by [facility]. This confirmation testing has not been cleared or approved by the FDA. The laboratory is regulated under CLIA as qualified to perform high-complexity testing. This test is used for patient testing purposes. It should not be regarded as investigational or for research. Test performed at [facility], [address], [place] [address] Brittanie Horan MD, PhD - Reed Man Blood Venous blood specimen / Unknown Venipuncture / Unknown 09/08/2024 7:02 AM EDT 09/08/2024 9:18 AM EDT Michelle Rucker MD LAB BLOOD ORDERABLES Fin al Result [facility] [address] [place] [address] documented in this encounter Visit Diagnoses Diagnosis Other long distance operator (current) drug therapy Benign prostatic hyperplasia without lower urinary tract symptoms documented in this encounter Additional Health Concerns Infection Onset Date Last Indicated Resolved Time MDRO (other) 12/15/2024 12/15/2024 documented as of this encounter Care Teams Manager Residential Relationship Specialty Start Date End Date Michelle Rucker MD [address] [place] [address] PCP - General Family Medicine 05/06/24 documented as of this encounter
--- OUTSIDE RECORDS SUMMARY | 2025-03-04 15:30 | XMS_ITS | Encounter Summary ---
Author Organization [facility] Address [address] [place] [phone] Care Team Providers Care Test Carrier Name Role Phone Michelle Rucker MD Primary Care Provider + Encounter Details Date Type Department Care Team (Late st Contact Info) Description 10/02/2024 Lab Requisition [facility] - Main Lab 299 [facility] [place] [address] Michelle Rucker MD [address] [address] Acute kidney failure, unspecified (CMS/HCC V24); Other [...] 1:45 PM EDT Acute kidney failure, unspecified ([facility] V24) Other acute kidney failure ([facility] V24) URINALYSIS WITH REFLEX MICROSCOPIC AND CULTURE Routine 10/01/2024 1:45 PM EDT Acute kidney failure, unspecified ([facility] V24) Other acute kidney failure ([facility] V24) documented in this encounter Results * Scott urine culture tube (10/01/2024 1:45 PM EDT) Pathologist [facility] Extra Tube Hold for add-ons. 10/02/2024 11:01 AM EDT [facility] Comment:Auto resulted. Urine Urine specimen obtained by clean catch procedure / Unknown Non-blood Collection / Unknown 10/01/2024 1:45 PM EDT 10/02/2024 9:03 AM EDT us Michelle Rucker MD LAB URINE ORDERABLES Fin al Result [facility] [address] [place] [address], * (ABNORMAL) Urinalysis with reflex microscopic and culture (10/01/2024 1:45 PM EDT) Pathologist [facility] Specific [place] Urine 1.002(L) 1.003 - 1.030 LAB URINALYSIS - AUTOMATED METHOD 10/02/2024 9:15 AM EDT [facility] pH, Urine 6.5 5.0 - 8.0 pH LAB URINALYSIS - AUTOMATED METHOD 10/02/2024 9:15 AM EDT [facility] Leukocytes, Urine Negative Negative LAB URINALYSIS - AUTOMATED METHOD 10/02/2024 9:15 AM EDT [facility] Nitrite, Urine Negative Negative LAB URINALYSIS - AUTOMATED METHOD 10/02/2024 9:15 AM EDT [facility] Protein, Urine Negative <=Trace mg/dL LAB URINALYSIS - AUTOMATED METHOD 10/02/2024 9:15 AM [facility] Glucose, Urine Negative Negative mg/dL LAB URINALYSIS - AUTOMATED METHOD 10/02/2024 9:15 AM [facility] Ketones, Urine Negative Negative mg/dL LAB URINALYSIS - AUTOMATED METHOD 10/02/2024 9:15 AM [facility] Urobilinogen, Urine 0.2 0.2 - 1.0 mg/dL LAB URINALYSIS - AUTOMATED METHOD 10/02/2024 9:15 AM [facility] Bilirubin, Urine Negative Negative LAB URINALYSIS - AUTOMATED METHOD 10/02/2024 9:15 AM [facility] Blood, Urine Negative Negative LAB URINALYSIS - AUTOMATED METHOD 10/02/2024 9:15 AM [facility] Urine Urine specimen obtained by clean catch procedure / Unknown Non-blood Collection / Unknown 10/01/2024 1:45 PM EDT 10/02/2024 8:46 AM EDT us Michelle Rucker MD LAB URINE ORDERABLES Fin al Result [facility] [address] [place] [address], * (ABNORMAL) Microalbumin creatinine urine ratio (10/01/2024 1:45 PM EDT) Creatinine, Urine 27.0 mg/dL LAB CHEMISTRY METHOD 10/02/2024 10:08 AM [facility] Microalb, Ur 30.7(H) 0.0 - 29.0 mg/L LAB CHEMISTRY METHOD 10/02/2024 10:08 AM [facility] Microalb/Crea t Ratio 114(H) <30 mg/g creat LAB CHEMISTRY METHOD 10/02/2024 10:08 AM EDT [facility] Urine Urine specimen obtained by clean catch procedure / Unknown Non-blood Collection / Unknown 10/01/2024 1:45 PM EDT 10/02/2024 8:46 AM EDT us Michelle Rucker MD LAB URINE ORDERABLES Fin al Result [facility] [address] [place] [address], * (ABNORMAL) BK virus molecular study urine, quantitative (10/01/2024 1:45 PM EDT) BK Virus DNA Qual Urine DETECTED( A) Not detected 10/05/2024 12:56 PM EDT [facility] BK Virus DNA Quant PCR Urine 851(H) <125 Copies/mL 10/05/2024 12:56 PM EDT [facility] Log BK Virus DNA, Urine 2.93(H) <2.10 Log (10) Copies/mL 10/05/2024 12:56 PM EDT [facility] Comment: This test utilizes a polymerase [...] characteristics of this procedure were determined by [facility]. This test is performed pursuant to a license agreement with [employer] Test performed at [facility], [address], [place] [address] Brittanie Horan MD, PhD - Electronic Gluing Machine Operator Urine Urinary bladder structure / Unknown Non-blood Collection / Unknown 10/01/2024 1:45 PM EDT 10/02/2024 8:46 AM EDT us Michelle Rucker MD LAB URINE ORDERABLES Fin al Result [facility] [address] [place] [address] documented in this encounter Visit Diagnoses Diagnosis Acute kidney failure, unspecified (CMS/HCC V24) Acute kidney failure, unspecified Other acute kidney failure (CMS/HCC V24) documented in this encounter Additional Health Concerns Infection Onset Date Last Indicated Resolved Time MDRO (other) 12/15/2024 12/15/2024 documented as of this encounter Care Teams Test Carrier Relationship Specialty Start Date End Date iMchelle Rucker MD [address] [place] [id number] PCP - General Family Medicine 05/06/24 documented as of this encounter
--- OUTSIDE RECORDS SUMMARY | 2025-03-04 15:30 | XMS_ITS | Encounter Summary ---
Author Organization [facility] Address [address] [address] Phone Care Team Providers Care Stripper Black And White Name Role Phone Ebony Lintonher Sloane NATHAN Primary Care Provider + Encounter Details Date Type Department Care Team (Late st Contact Info) Description 11/30/2024 Documentation Only [facility], [address] [place] [address] [place] [address] [place] [phone] Social History Tobacco Use Types Packs/Day [...] Visit [facility] [address] [place] [address] Andrey Phan MD [address] [place] [address] documented as of this encounter Visit Diagnoses Not on filedocumented in this encounter Care Teams Stripper Black And White Relationship Specialty Start Date End Date Tennille Linton NP [address] [place] [phone] PCP - General Nurse Practitioner 08/07/23 documented as of this encounter
--- OUTSIDE RECORDS SUMMARY | 2025-03-04 15:30 | XMS_ITS | Encounter Summary ---
Author Organization [facility] Address [address] [place] [phone] Care Team Providers Care Manager Office Name Role Phone Michelle Rucker MD Primary Care Provider + Encounter Details Date Type Department Care Team (Late st Contact Info) Description 07/14/2024 Lab Requisition [facility] - Main Lab 299 [facility] [place] [address] Michelle Rucker MD [address] [phone] Heart failure, unspecified (CMS/HCC V24, CMS/[facility] V28); Vitamin D deficiency, unspecified; Hyperlipidemia, unspecified; [...] mellitus with diabetic neuropathy, unspecified (CMS/HCC V24, CMS/[facility] V28) 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 difficile Rule-Out 08/14/2024 08/13/20242024 11:06 AM EST MDRO (other) 12/15/2024 12/15/2024 documented as of this encounter Care Teams Manager Office Relationship Specialty Start Date End Date Michelle Rucker MD [address] [address] PCP - General Family Medicine 05/06/24 documented as of this encounter
--- OUTSIDE RECORDS SUMMARY | 2025-03-04 15:30 | XMS_ITS | Encounter Summary ---
Author Organization [facility] Address [id number] [place] [phone] Care Team Providers Care Softball Core Molder Name Role Phone Michelle Rucker MD Primary Care Provider + Encounter Details Date Type Department Care Team (Late st Contact Info) Description 08/13/2024 Lab Requisition [facility] - Main Lab [address] [place] [address] Michelle Rucker MD [address] [phone] Vitamin D deficiency, unspecified; Malignant (primary) neoplasm, [...] mmol/L LAB CHEMISTRY METHOD 08/14/2024 10:39 AM [facility] Potassium 4.4 3.5 - 5.5 mmol/L LAB CHEMISTRY METHOD 08/14/2024 10:39 AM [facility] Chloride 94(L) 96 - 110 mmol/L LAB CHEMISTRY METHOD 08/14/2024 10:39 AM [facility] CO2 30 21 - 32 mmol/L LAB CHEMISTRY METHOD 08/14/2024 10:39 AM [facility] Anion Gap 6 3 - 11 LAB CHEMISTRY METHOD 08/14/2024 10:39 AM [facility] Glucose 277(H) 70 - 100 mg/dL LAB CHEMISTRY METHOD 08/14/2024 10:39 AM [facility] BUN 34(H) 5 - 25 mg/dL LAB CHEMISTRY METHOD 08/14/2024 10:39 AM [facility] Creatinine 1.45(H) 0.70 - 1.30 mg/dL LAB CHEMISTRY METHOD 08/14/2024 10:39 AM [facility] eGFR 53(L) >=60 mL/min/1. 73m2 LAB CHEMISTRY METHOD 08/14/2024 10:39 AM [facility] Comment:Calculation based on the Chronic Kidney Disease Epidemiology Collaboration (CKD-EPI) equation refit without adjustment for race. BUN/Creatinine Ratio 23.4 LAB CHEMISTRY METHOD 08/14/2024 10:39 AM [facility] Calcium 9.8 8.5 - 10.5 mg/dL LAB CHEMISTRY METHOD 08/14/2024 10:39 AM [facility] Blood Venous blood specimen / Unknown Venipuncture / Unknown 08/14/2024 7:21 AM EST 08/14/2024 8:35 AM EST us Michelle Rucker MD LAB BLOOD ORDERABLES Fin al Result [facility] [address] [place] [address], * (ABNORMAL) Complete blood count (08/14/2024 7:21 AM EST) [facility] WBC 12.8(H) 4.8 - 10.8 K/mcL LAB HEMETOLOGY METHOD 08/14/2024 9:50 AM [facility] RBC 4.00(L) 4.50 - 5.50 M/mcL LAB HEMETOLOGY METHOD 08/14/2024 9:50 AM [facility] Hemoglobin 10.3(L) 13.5 - 17.5 g/dL LAB HEMETOLOGY METHOD 08/14/2024 9:50 AM [facility] Hematocrit 33.3(L) 42.0 - 54.0 % LAB HEMETOLOGY METHOD 08/14/2024 9:50 AM [facility] MCV 84.1 79.0 - 98.0 FL LAB HEMETOLOGY METHOD 08/14/2024 9:50 AM [facility] MCH 26.0(L) 27.0 - 32.0 pcg LAB HEMETOLOGY METHOD 08/14/2024 9:50 AM [facility] MCHC 30.9(L) 32.0 - 37.0 g/dL LAB HEMETOLOGY METHOD 08/14/2024 9:50 AM [facility] RDW 14.9 11.0 - 15.0 % LAB HEMETOLOGY METHOD 08/14/2024 9:50 AM [facility] Platelets 373 130 - 400 K/mcL LAB HEMETOLOGY METHOD 08/14/2024 9:50 AM [facility] MPV 10.4 7.0 - 11.0 FL LAB HEMETOLOGY METHOD 08/14/2024 9:50 AM [facility] NRBC 0.0 <1.0 % LAB HEMETOLOGY METHOD 08/14/2024 9:50 AM EST [facility] NRBC Absolute 0.00 <0.10 K/mcL LAB HEMETOLOGY METHOD 08/14/2024 9:50 AM EST [facility] Blood Venous blood specimen / Unknown Venipuncture / Unknown 08/14/2024 7:21 AM EST 08/14/2024 8:35 AM EST us Michelle Rucker MD LAB BLOOD ORDERABLES Fin al Result [facility] [address] [place] [address], documented in this encounter Visit Diagnoses Diagnosis Vitamin D deficiency, unspecified Malignant (primary) neoplasm, unspecified (CMS/HCC V24, CMS/HCC V28) Kidney transplant status documented in this encounter Additional Health Concerns Infection Onset Date Last Indicated Resolved Time C. difficile Rule-Out 08/14/2024 08/13/20242024 11:06 AM EST MDRO (other) 12/15/2024 12/15/2024 documented as of this encounter Care Teams Softball Core Molder Relationship Specialty Start Date End Date Michelle Rucker MD [address] [place] [phone] PCP - General Family Medicine 05/06/24 documented as of this encounter
--- OUTSIDE RECORDS SUMMARY | 2025-03-04 15:30 | XMS_ITS | Encounter Summary ---
Author Organization [facility] Address [address] [place] [phone] Care Team Providers Care Time Checker Name Role Phone Michelle Rucker MD Primary Care Provider + Encounter Details Date Type Department Care Team (Late st Contact Info) Description 09/03/2024 Lab Requisition [facility] - Main Lab 299 [facility] [place] [address] Michelle Rucker MD [address] [address] Type 1 diabetes mellitus with [...] mmol/L LAB CHEMISTRY METHOD 09/03/2024 10:30 AM [facility] Potassium 4.2 3.5 - 5.5 mmol/L LAB CHEMISTRY METHOD 09/03/2024 10:30 AM [facility] Chloride 99 96 - 110 mmol/L LAB CHEMISTRY METHOD 09/03/2024 10:30 AM [facility] CO2 30 21 - 32 mmol/L LAB CHEMISTRY METHOD 09/03/2024 10:30 AM [facility] Anion Gap 7 3 - 11 LAB CHEMISTRY METHOD 09/03/2024 10:30 AM [facility] Glucose 157(H) 70 - 100 mg/dL LAB CHEMISTRY METHOD 09/03/2024 10:30 AM [facility] BUN 37(H) 5 - 25 mg/dL LAB CHEMISTRY METHOD 09/03/2024 10:30 AM [facility] Creatinine 1.36(H) 0.70 - 1.30 mg/dL LAB CHEMISTRY METHOD 09/03/2024 10:30 AM [facility] eGFR 57(L) >=60 mL/min/1. 73m2 LAB CHEMISTRY METHOD 09/03/2024 10:30 AM [facility] Comment:Calculation based on the Chronic Kidney Disease Epidemiology Collaboration (CKD-EPI) equation refit without adjustment for race. BUN/Creatinine Ratio 27.2 LAB CHEMISTRY METHOD 09/03/2024 10:30 AM [facility] Calcium 9.6 8.5 - 10.5 mg/dL LAB CHEMISTRY METHOD 09/03/2024 10:30 AM [facility] Blood Venous blood specimen / Unknown Venipuncture / Unknown 09/03/2024 6:15 AM EDT 09/03/2024 10:24 AM EDT us Michelle Rucker MD LAB BLOOD ORDERABLES Fin al Result [facility] [address] [place] [address], [place] [phone] * (ABNORMAL) Complete blood count (09/03/2024 6:15 AM EDT) [facility] WBC 7.5 4.8 - 10.8 K/mcL LAB HEMETOLOGY METHOD 09/03/2024 10:04 AM EDT [facility] RBC 3.90(L) 4.50 - 5.50 M/mcL LAB HEMETOLOGY METHOD [facility] Hemoglobin 9.9(L) 13.5 - 17.5 g/dL LAB HEMETOLOGY METHOD 09/03/2024 10:04 AM EDT [facility] Hematocrit 30.8(L) 42.0 - 54.0 % LAB HEMETOLOGY METHOD 09/03/2024 10[facility] MCV 79.6 79.0 - 98.0 FL LAB HEMETOLOGY METHOD 09/03/2024 10:[facility] MCH 25.6(L) 27.0 - 32.0 pcg LAB HEMETOLOGY METHOD 09/03/2024 10:04 AM EDT [facility] MCHC 32.1 32.0 - 37.0 g/dL LAB HEMETOLOGY METHOD 09/03/2024 10:[facility] RDW 14.6 11.0 - 15.0 % LAB HEMETOLOGY METHOD 09/03/2024 10:04 AM [facility] Platelets 313 130 - 400 K/mcL LAB HEMETOLOGY METHOD 09/03/2024 10:04 AM EDT [facility] MPV 10.4 7.0 - 11.0 FL LAB HEMETOLOGY METHOD 09/03/2024 10:04 AM EDT [facility] NRBC 0.0 <1.0 % LAB HEMETOLOGY METHOD 09/03/2024 10:04 AM EDT [facility] NRBC Absolute 0.00 <0.10 K/mcL LAB HEMETOLOGY METHOD 09/03/2024 10:04 AM EDT [facility] Blood Venous blood specimen / Unknown Venipuncture / Unknown 09/03/2024 6:15 AM EDT 09/03/2024 10:03 AM EDT Michelle Rucker MD LAB BLOOD ORDERABLES Fin al Result [facility] [address] [place] [address], documented in this encounter Visit Diagnoses Diagnosis Type 1 diabetes mellitus with diabetic neuropathy, unspecified (CMS/HCC V24, CMS/[facility] V28) 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
--- OUTSIDE RECORDS SUMMARY | 2025-03-04 15:30 | XMS_ITS | Encounter Summary ---
Author Organization [facility] Address [address] [place] [address] Encounters * CPT with Inocencio Worthington at [employer] on 2025-01-08 { reasonForRequest : chronic uti, pt is suspected to have another one, requesting catheter change\n , patientReports : , denies :[ Unable to void greater [...] void, painful urination -hematuria ], chiefComplaints : UrinarySymptoms, Urinary Catheter/Nephrostomy Tube Problems , pmh : Organ Transplant, Hypertension, Diabetes Mellitus Type 2, Hyperlipidemia, Stroke , allergies : Dilaudid, Oxycodone, Percocet , otherAllergies :null, painAssessment : Level null out of 10 , visitOutcome : , additionalComments : 69 y.o male complains of Urinary Symptoms, Urinary Catheter/Nephrostomy Tube Problems\nPatient's sister calling reporting patient has hx of chronic UTI. Patient's windows vm[employer] engineer ordered a week of Levofloxacin and patient's symptoms have been waxing and waning. Sister reports patient is intermittently confused. Patient's sister called windows vm[employer] engineer office to review symptoms and they ordered another week of Levofloxacin. Sister reports patient also have milky white discharge from around aguero catheter site and nephrology office recommended the catheter be changed, last change on 12/15. Nephrology also requesting new urine be collected and sent for culture. Sister denies known fever or chills. No known flank pain, no hematuria. I provided information on the mobile health provider response time and advised the patient and/or caregiver to monitor reported signs and symptoms. I discussed the warning signs of when to seek emergency care -Kate Gonzalez RN } Pt seen for reported UTI symptoms. Met family on scene who are the Pt's primary care givers. Familyreports question of UTI since October, Pt has been on several different antibiotics with no success. Family reports Pt has been on Levofloxacin for 1 week with no improvement, Pt's urologist sent prescription for another week of Levofloxacin that is supposed to be started today. Family reports Pt presenting with confusion (Pt has some baseline confusion but per family noticeably worse over the past week or so) and general weakness. Pt answers questions with 1 word, not always appropriate response, family reports Pt is normally more conversive and this is also change from his baseline. Pt bed bound post CVA, aguero in place. Pt's aguero has cloudy urine present, white colored discharge from insertion site of aguero cath. Family reports Pt has chronic UTI's that are becoming increasingly difficultto treat. VS as noted. Pt's abd soft non distended, Pt does not appear to be in any pain with palpat ion. LS clear. Due to concern of sepsis [facility] contacted and advised of Pt presentation, history and exam findings. [facility] request Pt be sent to ED for sepsis rule out and appropriate treatment. Family advised of [facility] recommendation, agreeable to it. Pt to be transported to [facility], [facility] made aware. EMS called via 911. Pt care and report turned over to [facility], call closed. ORAL_MEDICATION, EKG, POC_BLOODWORK, GLUCOSE, URINE_DIPSTICK, WOUND_CARE, STRAIGHT_CATHETERIZATION,CULTURE_URINE Written by Inocencio Worthington on 2025-01-08
--- OUTSIDE RECORDS SUMMARY | 2025-03-04 15:31 | XMS_ITS | Encounter Summary ---
Author Organization [facility] Address [address] [place] [address] Care Team Providers Care Seam Closer Name Role Phone Elder, Michelle Alonso MD Primary Care Provider + Encounter Details Date Type Department Care Team (Late st Contact Info) Description 11/09/2024 Lab Requisition [facility] - Main Lab 299 [facility] [place] [address] Román Betancur MD [address] [place] [address] Urinary tract infection, site not [...] Date/Time Associated Diagnosis Comments CULTURE URINE Routine 11/09/2024 1:00 PM EDT Urinary tract infection, site not specified documented in this encounter Results * (ABNORMAL) Culture urine (11/09/2024 1:00 PM EDT) Culture, Urine 10,000-49,0 00 CFU/mL Yolande albicans/du bliniensis( A) 11/11/2024 9:02 AM EDT [facility] LAB Comment: Edited result: Previously reported as Yeast on 11/10/2024 at 1409 EDT. Urine Urine specimen obtained by clean catch procedure / Unknown 11/09/2024 1:00 PM EDT 11/09/2024 6:27 PM EDT us Román Betancur MD LAB MICROBIOLOGY - GENERAL ORD ERABLES Final Result [facility] [address] [place] [address], documented in this encounter Visit Diagnoses Diagnosis Urinary tract infection, site not specified documented in this encounter Additional Health Concerns Infection Onset Date Last Indicated Resolved Time MDRO (other) 12/15/2024 12/15/2024 documented as of this encounter Care Teams Seam Closer Relationship Specialty Start Date End Date Michelle Rucker MD [address] [place] [phone] PCP - General Family Medicine 05/06/24 documented as of this encounter
--- OUTSIDE RECORDS SUMMARY | 2025-03-04 15:31 | XMS_ITS | Encounter Summary ---
Author Organization [facility] Address [address] [place] [address] Care Team Providers Care Smoke Tester Name Role Phone Michelle Rucker MD Primary Care Provider + Encounter Details Date Type Department Care Team (Late st Contact Info) Description 10/28/2024 Lab Requisition [facility] - Main Lab 299 [facility] [place] [address] Michelle Rucker MD 819 [facility] 1 [place], [place] [phone] Urinary tract infection, site not specified Social [...] * Culture urine (10/28/2024 12:00 AM EDT) [facility] Culture, Urine <10,000 CFU/mL Yeast, insignificant count, no further workup 10/29/2024 10:40 AM [facility] LAB Urine Urine specimen obtained by clean catch procedure / Unknown Non-blood Collection / Unknown 10/28/2024 10/28/2024 12:21 PM EDT us Michelle Rucker MD LAB MICROBIOLOGY - [facility] AL ORDERABLES Final Result [facility] [address] [place] [address], [place] [phone] * (ABNORMAL) Urinalysis with reflex microscopic and culture (10/28/2024 12:00 AM EDT) [facility] Specific [place] Urine 1.010 1.003 - 1.030 LAB URINALYSIS - AUTOMATED METHOD 10/28/2024 12:21 PM [facility] pH, Urine 7.0 5.0 - 8.0 pH LAB URINALYSIS - AUTOMATED METHOD 10/28/2024 12:21 PM [facility] Leukocytes, Urine Large(A) Negative LAB URINALYSIS - AUTOMATED METHOD 10/28/2024 12:21 PM [facility] Nitrite, Urine Negative Negative LAB URINALYSIS - AUTOMATED METHOD 10/28/2024 12:21 PM [facility] Protein, Urine 100(A) <=Trace mg/dL LAB URINALYSIS - AUTOMATED METHOD 10/28/2024 12:21 PM [facility] Glucose, Urine Negative Negative mg/dL LAB URINALYSIS - AUTOMATED METHOD 10/28/2024 12:21 PM [facility] Ketones, Urine Negative Negative mg/dL LAB URINALYSIS - AUTOMATED METHOD 10/28/2024 12:21 PM [facility] Urobilinogen , Urine 0.2 0.2 - 1.0 mg/dL LAB URINALYSIS - AUTOMATED METHOD 10/28/2024 12:21 PM [facility] Bilirubin, Urine Negative Negative LAB URINALYSIS - AUTOMATED METHOD 10/28/2024 12:21 PM [facility] Blood, Urine Moderate(A) Negative LAB URINALYSIS - AUTOMATED METHOD 10/28/2024 12:21 PM [facility] RBC, Urine 2.3 0 - 4 /HPF LAB URINALYSIS - AUTOMATED METHOD 10/28/2024 12:21 PM [facility] WBC, Urine 647.0(H) 0 - 4 /HPF LAB URINALYSIS - AUTOMATED METHOD 10/28/2024 12:21 PM [facility] Squamous Epithelial, Urine 28 0 - 60 /LPF LAB URINALYSIS - AUTOMATED METHOD 10/28/2024 12:21 PM [facility] Bacteria, Urine Few(A) Negative /HPF LAB URINALYSIS - AUTOMATED METHOD 10/28/2024 12:21 PM [facility] Hyaline Casts, Urine 3.2(H) 0 - 3 /LPF LAB URINALYSIS - AUTOMATED METHOD 10/28/2024 12:21 PM [facility] Yeast, Urine Present(A) None /HPF LAB URINALYSIS - AUTOMATED METHOD 10/28/2024 12:21 PM [facility] Urine Urine specimen obtained by clean catch procedure / Unknown Non-blood Collection / Unknown 10/28/2024 10/28/2024 10:05 AM EDT us Michelle Rucker MD LAB URINE ORDERABLES Fin al Result [facility] [address] [place] [address], * Scott urine culture tube (10/28/2024 12:00 AM EDT) Extra Tube Hold for add-ons. 10/28/2024 1:01 PM EDT [facility] LAB Comment:Auto resulted. Urine Urine specimen obtained by clean catch procedure / Unknown Non-blood Collection / Unknown 10/28/2024 10/28/2024 10:05 AM EDT Michelle Rucker MD LAB URINE ORDERABLES Fin al Result [facility] [address] [place] [address], documented in this encounter Visit Diagnoses Diagnosis Urinary tract infection, site not specified documented in this encounter Additional Health Concerns Infection Onset Date Last Indicated Resolved Time MDRO (other) 12/15/2024 12/15/2024 documented as of this encounter Care Teams Smoke Tester Relationship Specialty Start Date End Date Michelle Rucker MD [address] [place] [phone] PCP - General Family Medicine 05/06/24 documented as of this encounter
--- OUTSIDE RECORDS SUMMARY | 2025-03-04 15:31 | XMS_ITS | Encounter Summary ---
Author Organization [facility] Address [address] [place] [address] Care Team Providers Care Enterostomal Therapy Nurse Name Role Phone Michelle Rucker MD Primary Care Provider + Encounter Details Date Type Department Care Team (Late st Contact Info) Description 10/29/[address] [facility] - Main Lab [address] [place] [address] Michelle Rucker MD [address] [phone] Weakness Social History Tobacco Use Types Packs/Day [...] LAB CHEMISTRY METHOD 10/29/2024 11:00 AM EDT [facility] Potassium 4.6 3.5 - 5.5 mmol/L LAB CHEMISTRY METHOD 10/29/2024 11:00 AM EDT [facility] Chloride 106 96 - 110 mmol/L LAB CHEMISTRY METHOD 10/29/2024 11:00 AM [facility] CO2 27 21 - 32 mmol/L LAB CHEMISTRY METHOD 10/29/2024 11:00 AM [facility] Anion Gap 7 3 - 11 LAB CHEMISTRY METHOD 10/29/2024 11:00 AM [facility] Glucose 154(H) 70 - 100 mg/dL LAB CHEMISTRY METHOD 10/29/2024 11:00 AM [facility] BUN 34(H) 5 - 25 mg/dL LAB CHEMISTRY METHOD 10/29/2024 11:00 AM [facility] Creatinine 2.16(H) 0.70 - 1.30 mg/dL LAB CHEMISTRY METHOD 10/29/2024 11:00 AM [facility] eGFR 33(L) >=60 mL/min/1. 73m2 LAB CHEMISTRY METHOD 10/29/2024 11:00 AM [facility] Comment:Calculation based on the Chronic Kidney Disease Epidemiology Collaboration (CKD-EPI) equation refit without adjustment for race. BUN/Creatinine Ratio 15.7 LAB CHEMISTRY METHOD 10/29/2024 11:00 AM [facility] Calcium 9.1 8.5 - 10.5 mg/dL LAB CHEMISTRY METHOD 10/29/2024 11:00 AM [facility] AST (SGOT) 14 10 - 42 unit/L LAB CHEMISTRY METHOD 10/29/2024 11:00 AM [facility] ALT (SGPT) 11 10 - 60 unit/L LAB CHEMISTRY METHOD 10/29/2024 11:00 AM [facility] Alkaline Phosphatase 58 42 - 121 unit/L LAB CHEMISTRY METHOD 10/29/2024 11:00 AM [facility] Total Protein 6.6 6.0 - 8.0 g/dL LAB CHEMISTRY METHOD 10/29/2024 11:00 AM [facility] Albumin 2.7(L) 3.2 - 5.0 g/dL LAB CHEMISTRY METHOD 10/29/2024 11:00 AM [facility] Total Bilirubin 0.7 0.0 - 1.4 mg/dL LAB CHEMISTRY METHOD 10/29/2024 11:00 AM [facility] Blood Venous blood specimen / Unknown Venipuncture / Unknown 10/29/2024 7:50 AM EDT 10/29/2024 9:52 AM EDT us Michelle Rucker MD LAB BLOOD ORDERABLES Fin al Result [facility] [address] [place] [address], * (ABNORMAL) Complete blood count (10/29/2024 7:50 AM EDT) WBC 6.6 4.8 - 10.8 K/mcL LAB HEMETOLOGY METHOD 10/29/2024 10:17 AM [facility] RBC 4.40(L) 4.50 - 5.50 M/mcL LAB HEMETOLOGY METHOD 10/29/2024 10:17 AM [facility] Hemoglobin 10.7(L) 13.5 - 17.5 g/dL LAB HEMETOLOGY METHOD 10/29/2024 10:17 AM [facility] Hematocrit 35.0(L) 42.0 - 54.0 % LAB HEMETOLOGY METHOD 10/29/2024 10:17 AM [facility] MCV 79.0 79.0 - 98.0 FL LAB HEMETOLOGY METHOD 10/29/2024 10:17 AM [facility] MCH 24.2(L) 27.0 - 32.0 pcg LAB HEMETOLOGY METHOD 10/29/2024 10:17 AM [facility] MCHC 30.6(L) 32.0 - 37.0 g/dL LAB HEMETOLOGY METHOD 10/29/2024 10:17 AM EDT [facility] RDW 14.8 11.0 - 15.0 % LAB HEMETOLOGY METHOD 10/29/2024 10:17 AM EDT [facility] Platelets 248 130 - 400 K/mcL LAB HEMETOLOGY METHOD 10/29/2024 10:17 AM EDT [facility] MPV 10.5 7.0 - 11.0 FL LAB HEMETOLOGY METHOD 10/29/2024 10:17 AM EDT [facility] NRBC 0.0 <1.0 % LAB HEMETOLOGY METHOD 10/29/2024 10:17 AM EDT [facility] NRBC Absolute 0.00 <0.10 K/mcL LAB HEMETOLOGY METHOD 10/29/2024 10:17 AM EDT [facility] Blood Venous blood specimen / Unknown Venipuncture / Unknown 10/29/2024 7:50 AM EDT 10/29/2024 9:52 AM EDT Michelle Rucker MD LAB BLOOD ORDERABLES Fin al Result [facility] [address] [place] [address], documented in this encounter Visit Diagnoses Diagnosis Weakness Other malaise and fatigue documented in this encounter Additional Health Concerns Infection Onset Date Last Indicated Resolved Time MDRO (other) 12/15/2024 12/15/2024 documented as of this encounter Care Teams Enterostomal Therapy Nurse Relationship Specialty Start Date End Date Michelle Rucker MD [address] [place] [id number] PCP - General Family Medicine 05/06/24 documented as of this encounter
--- OUTSIDE RECORDS SUMMARY | 2025-03-04 15:31 | XMS_ITS | Encounter Summary ---
Author Organization [facility] Address [address] [place] [phone] Care Team Providers Care Director Industrial Name Role Phone Michelle Rucker MD Primary Care Provider + Encounter Details Date Type Department Care Team (Late st Contact Info) Description 10/30/2024 Lab Requisition [facility] - Main Lab 299 [facility] [place] [address] Michelle Rucker MD [address] [phone] Chronic kidney disease, stage 4 (severe) (CMS/HCC [...] mmol/L LAB CHEMISTRY METHOD 10/30/2024 9:54 AM [facility] Potassium 4.6 3.5 - 5.5 mmol/L LAB CHEMISTRY METHOD 10/30/2024 9:54 AM [facility] Chloride 110 96 - 110 mmol/L LAB CHEMISTRY METHOD 10/30/2024 9:54 AM [facility] CO2 26 21 - 32 mmol/L LAB CHEMISTRY METHOD 10/30/2024 9:54 AM [facility] Anion Gap 5 3 - 11 LAB CHEMISTRY METHOD 10/30/2024 9:54 AM [facility] Glucose 114(H) 70 - 100 mg/dL LAB CHEMISTRY METHOD 10/30/2024 9:54 AM [facility] BUN 30(H) 5 - 25 mg/dL LAB CHEMISTRY METHOD 10/30/2024 9:54 AM [facility] Creatinine 1.95(H) 0.70 - 1.30 mg/dL LAB CHEMISTRY METHOD 10/30/2024 9:54 AM [facility] eGFR 37(L) >=60 mL/min/1. 73m2 LAB CHEMISTRY METHOD 10/30/2024 9:54 AM [facility] Comment:Calculation based on the Chronic Kidney Disease Epidemiology Collaboration (CKD-EPI) equation refit without adjustment for race. BUN/Creatinine Ratio 15.4 LAB CHEMISTRY METHOD 10/30/2024 9:54 AM [facility] Calcium 9.1 8.5 - 10.5 mg/dL LAB CHEMISTRY METHOD 10/30/2024 9:54 AM [facility] Blood Venous blood specimen / Unknown Venipuncture / Unknown 10/30/2024 7:43 AM EDT 10/30/2024 9:16 AM EDT us Michelle Rucker MD LAB BLOOD ORDERABLES Fin al Result [facility] [address] [place] [address], * Tacrolimus level (10/30/2024 7:43 AM EDT) Tacrolimus Level 7.3 5.0 - 20.0 ng/mL 11/02/2024 9:20 AM EDT [facility] Comment: Additional Information: Toxic Level > [...] and the performance characteristics determined by [facility]. This confirmation testing has not been cleared or approved by the FDA. The laboratory is regulated under CLIA as qualified to perform high-complexity testing. This test is used for patient testing purposes. It should not be regarded as investigational or for research. Test performed at [facility], [address] , [place] [address] Brittanie Horan MD, PhD - Substation Engineer Blood Venous blood specimen / Unknown Venipuncture / Unknown 10/30/2024 7:43 AM EDT 10/30/2024 9:16 AM EDT Michelle Rucker MD LAB BLOOD ORDERABLES Fin al Result [facility] [address] [place] [address] documented in this encounter Visit Diagnoses Diagnosis Chronic kidney disease, stage 4 (severe) (CMS/HCC V24, CMS/HCC V28) documented in this encounter Additional Health Concerns Infection Onset Date Last Indicated Resolved Time MDRO (other) 12/15/2024 12/15/2024 documented as of this encounter Care Teams Director Industrial Relationship Specialty Start Date End Date Michelle Rucker MD [address] [address] PCP - General Family Medicine 05/06/24 documented as of this encounter
--- OUTSIDE RECORDS SUMMARY | 2025-03-04 15:31 | XMS_ITS | Encounter Summary ---
Author Organization [facility] Address [address] [place] [phone] Care Team Providers Care Disintegrator Operator Name Role Phone Michelle Rucker MD Primary Care Provider + Encounter Details Date Type Department Care Team (Late st Contact Info) Description 10/24/2024 Lab Requisition [facility] - Main Lab 299 [facility] [place] [address] Michelle Rucker MD [address] [address] Kidney transplant status Social History Tobacco Use [...] documented as of this encounter Care Teams Disintegrator Operator Relationship Specialty Start Date End Date Michelle Rucker MD [address] [place] [address] PCP - General Family Medicine 05/06/24 documented as of this encounter
--- OUTSIDE RECORDS SUMMARY | 2025-03-04 15:31 | XMS_ITS | Encounter Summary ---
Author Organization [facility] Address [address] [place] [phone] Care Team Providers Care Credit Reporter Name Role Phone Michelle Rucker MD Primary Care Provider + Encounter Details Date Type Department Care Team (Late st Contact Info) Description 10/19/2024 Lab Requisition [facility] - Main Lab 299 [facility] [place] [address] Michelle Rucker MD [address] [phone] Acute kidney failure, unspecified (CMS/HCC V24); Encounter [...] - 20.0 ng/mL 10/22/2024 10:58 AM EDT [facility] Comment: Additional Information: [...] and the performance characteristics determined by [facility]. This confirmation testing has not been cleared or approved by the FDA. The laboratory is regulated under CLIA as qualified to perform high-complexity testing. This test is used for patient testing purposes. It should not be regarded as investigational or for research. Test performed at [facility], [address], [place] [address] Brittanie Horan MD, PhD - Strategic Client Executive Blood Venous blood specimen / Unknown Venipuncture / Unknown 10/20/2024 8:08 AM EDT 10/20/2024 9:11 AM EDT Michelle Rucker MD LAB BLOOD ORDERABLES Fin al Result [facility] [address] [place] [address] documented in this encounter Visit Diagnoses Diagnosis Acute kidney failure, unspecified (CMS/[facility] V24) Acute kidney failure, unspecified Encounter for therapeutic drug level monitoring documented in this encounter Additional Health Concerns Infection Onset Date Last Indicated Resolved Time MDRO (other) 12/15/2024 12/15/2024 documented as of this encounter Care Teams Credit Reporter Relationship Specialty Start Date End Date Michelle Rucker MD [address] [address] PCP - General Family Medicine 05/06/24 documented as of this encounter
--- OUTSIDE RECORDS SUMMARY | 2025-03-04 15:31 | XMS_ITS | Clinical Summary ---
Author Organization 299 [facility] Address [address] [place] [address] Phone Care Team Providers Care Glassworker Name Role Phone Elder, Michelle Alonso MD Primary Care Provider + Encounters Date Type Department Care Team Description 12/15/2024 Lab Requisition [facility] - Main Lab 299 [facility] [employer] [place] [address] Harshad Thornton PA Urinary tract infection, site not specified from Last 3 Months Social History Tobacco [...] 01/16/2022 01/16/2017, 09/22/2015, 03/01/2015, Additional history exists Cholesterol Screening (Lipid Panel) 04/29/2024 Colorectal Cancer Screening: Colonoscopy 04/29/2024 Falls Risk Assessment 04/29/2024 Hepatitis C Screening 04/29/2024 Medicare Annual Wellness Visit 04/29/2024 Social Influencers of Health Screening 04/29/2024 Depression Screening 06/24/2024 COVID-19 Vaccine ( - season) 2025 03/02/2021, 08/12/2020, 07/12/2020 Influenza Vaccine (#1) 2025 , 03/17/2020, 04/03/2019, Additional history exists Diabetes: Blood Sugar Control Test (HGBA1C) 06/02/2025 12/01/2024, 10/02/2024, 08/10/2024, Additional history exists Diabetes: Annual GFR (Glomerular Filtration Rate) 10/30/2025 10/30/2024, 10/29/2024, 10/02/2024, Additional history exists Hypertension/CHF/CAD Annual BMP Blood Test 10/30/2025 10/30/2024, 10/29/2024, 10/02/2024, Additional history exists Diabetes: Annual Urine Albumin-Creatinine Ratio (uACR) 12/01/2025 12/01/2024, 10/01/2024, 03/22/2024, Additional history exists DTaP,Tdap,and Td Vaccines (2 [...] EDT Urinary tract infection, site not specified BASIC METABOLIC PANEL Routine 10/30/2024 7:43 AM EDT Chronic kidney disease, stage 4 (severe) (CMS/HCC V24, CMS/[facility] V28) HEMOGLOBIN A1C Routine 10/02/2024 6:50 AM EDT Immunodeficiency, unspecified ([facility] V24) MICROALBUMIN CREATININE URINE RATIO Routine 10/01/2024 1:45 PM EDT Acute kidney failure, unspecified ([facility] V24) Other acute kidney failure ([facility] V24) from Last 3 Months or Most Recently Relevant to Health Maintenance Results * (ABNORMAL) Culture urine (12/15/2024 12:00 AM EDT) Pathologist [facility] Culture, Urine 10,000-49,000 CFU/mL Pseudomonas aeruginosa(A) YENNIFER 12/18/2024 10:25 AM EDT [facility] Comment: This is [...] Susceptible Pseudomonas aeruginosa Cefepime DISK DIFFUSION Susceptible [facility] [place] LAB MICROBIOLOGY - GENERAL ORDE HANY Final Result [facility] [address] [place] [address], * (ABNORMAL) Basic metabolic panel (10/30/2024 7:43 AM EDT) [facility] Sodium 141 133 - 145 mmol/L LAB CHEMISTRY METHOD 10/30/2024 9:54 AM EDT [facility] Potassium 4.6 3.5 - 5.5 mmol/L LAB CHEMISTRY METHOD 10/30/2024 9:54 AM EDT [facility] Chloride 110 96 - 110 mmol/L LAB CHEMISTRY METHOD 10/30/2024 9:54 AM [facility] CO2 26 21 - 32 mmol/L LAB CHEMISTRY METHOD 10/30/2024 9:54 AM [facility] Anion Gap 5 3 - 11 LAB CHEMISTRY METHOD 10/30/2024 9:54 AM [facility] Glucose 114(H) 70 - 100 mg/dL LAB CHEMISTRY METHOD 10/30/2024 9:54 AM [facility] BUN 30(H) 5 - 25 mg/dL LAB CHEMISTRY METHOD 10/30/2024 9:54 AM [facility] Creatinine 1.95(H) 0.70 - 1.30 mg/dL LAB CHEMISTRY METHOD 10/30/2024 9:54 AM [facility] eGFR 37(L) >=60 mL/min/1. 73m2 LAB CHEMISTRY METHOD 10/30/2024 9:54 AM [facility] Comment:Calculation based on the Chronic Kidney Disease Epidemiology Collaboration (CKD-EPI) equation refit without adjustment for race. BUN/Creatinine Ratio 15.4 LAB CHEMISTRY METHOD 10/30/2024 9:54 AM [facility] Calcium 9.1 8.5 - 10.5 mg/dL LAB CHEMISTRY METHOD 10/30/2024 9:54 AM [facility] Blood Venous blood specimen / Unknown Venipuncture / Unknown 10/30/2024 7:43 AM EDT 10/30/2024 9:16 AM EDT us Michelle Rucker MD LAB BLOOD ORDERABLES Fin al Result [facility] [address] [place] [address], * (ABNORMAL) Hemoglobin A1c (10/02/2024 6:50 AM EDT) Hemoglobin A1C 7.3(H) <6.5 % LAB CHEMISTRY METHOD 10/02/2024 2:09 PM EDT [facility] Mean Bld Glu Estim. 163 mg/dL LAB CHEMISTRY METHOD 10/02/2024 2:09 PM EDT [facility] Blood Venous blood specimen / Unknown Venipuncture / Unknown 10/02/2024 6:50 AM EDT 10/02/2024 8:49 AM EDT Michelle Rucker MD LAB BLOOD ORDERABLES Fin al Result Performing Organization Address [facility]/ZIP Co de Phone Number [facility] [address] [place] [address], [place] [phone] * (ABNORMAL) Microalbumin creatinine urine ratio (10/01/2024 1:45 PM EDT) Creatinine, Urine 27.0 mg/dL LAB CHEMISTRY METHOD 10/02/2024 10:08 AM EDT [facility] Microalb, Ur 30.7(H) 0.0 - 29.0 mg/L LAB CHEMISTRY METHOD 10/02/2024 10:08 AM EDT [facility] Microalb/Crea t Ratio 114(H) <30 mg/g creat LAB CHEMISTRY METHOD 10/02/2024 10:08 AM EDT [facility] Urine Urine specimen obtained by clean catch procedure / Unknown Non-blood Collection / Unknown 10/01/2024 1:45 PM EDT 10/02/2024 8:46 AM EDT Michelle Rucker MD LAB URINE ORDERABLES Fin al Result Performing Organization Address City/[facility]/ZIP Co de Phone Number [facility] [address] [place] [address], [place] [phone] from Last 3 Months or Most Recently Relevant to Health Maintenance Additional Health Concerns Infection Onset Date Last Indicated MDRO (other) 12/15/2024 12/15/2024 Insurance [employer] Member Subscriber Plan / Payer (Ef fective 2016-Present) Name:HARVEY LAW Relation to Subscriber:Self Name:Harvey Law Payer ID:[id number] Group ID:[id number] Type:Not on file Address: [facility] [place] [address] Care Teams Glassworker Relationship Specialty Start Date End Date Michelle Rucker MD [address] [address] PCP - General Family Medicine 05/06/24
--- OUTSIDE RECORDS SUMMARY | 2025-03-04 15:31 | XMS_ITS | Encounter Summary ---
Author Organization [facility] Address [address] [place] [address] Care Team Providers Care Shooter Helper Name Role Phone Michelle Rucker MD Primary Care Provider + Encounter Details Date Type Department Care Team (Late st Contact Info) Description 10/26/[address] [facility] - Main Lab 299 [facility] [place] [address] Michelle Rucker MD [address] [address] Kidney transplant status Social History Tobacco Use [...] developed and the performance characteristics determined by [facility]. This confirmation testing has not been cleared or approved by the FDA. The laboratory is regulated under CLIA as qualified to perform high-complexity testing. This test is used for patient testing purposes. It should not be regarded as investigational or for research. Test performed at [facility], [address], [place] [address] Brittanie Horan MD, PhD - Dairy Husbandry Worker Blood Venous blood specimen / Unknown Venipuncture / Unknown 10/27/2024 8:34 AM EDT 10/27/2024 9:32 AM EDT Michelle Rucker MD LAB BLOOD ORDERABLES Fin al Result [facility] [address] [place] [address] documented in this encounter Visit Diagnoses Diagnosis Kidney transplant status documented in this encounter Additional Health Concerns Infection Onset Date Last Indicated Resolved Time MDRO (other) 12/15/2024 12/15/2024 documented as of this encounter Care Teams Shooter Helper Relationship Specialty Start Date End Date Michelle Rucker MD [address] [place] [phone] PCP - General Family Medicine 05/06/24 documented as of this encounter
[2025-03-05 12:39] LABS: Tacrolimus Prograf 3.4 mcg/L
[2025-03-06 10:28] LABS: BK DNA QN RT PCR, UR 1870 IU/mL (NOT DETECTED); BK DNA QN RT PCR, UR 3.27 Log IU/mL (NOT DETECTED); BK Virus DNA, QN PCR Plasma NOT DETECTED (NOT DETECTED); BK Virus DNA, QN PCR Plasma NOT DETECTED Log IU/mL (NOT DETECTED)
== END 2025-03-04 11:09 | disposition home or self-care (01) ==
LOC: HO.HVNA 11:08
PROVIDERS: Visit Provider Internal Medicine Nephrology
DX: Z51.81 Encounter for therapeutic drug level monitoring (principal); Z13.1 Encounter for screening for diabetes mellitus; N39.0 Urinary tract infection, site not specified; N19 Unspecified kidney failure
CPT/HCPCS: 36415; 80051; 80197; 81001; 81003; 82043; 82310; 82550; 82565; 82570; 82728; 83036; 83540; 83970; 84450; 84460; 84520; 85025; 87086; 87088; 87186; 87799

== ENCOUNTER 2025-03-15 09:12 | Outpatient (REF) | payer OTHER, SELFPAY ==
--- OUTSIDE RECORDS SUMMARY | 2025-03-15 12:00 | XMS_ITS | Encounter Summary ---
Author Organization [facility] Address [address] [address] Phone Care Team Providers Care Fan Installer Name Role Phone Tennille Linton NP Primary Care Provider + Encounter Details Date Type Department Care Team (Late st Contact Info) Description 05/26/2024 Documentation Only [facility] [place], [address] [place] [address] [place] [address] [place] [phone] Social History Tobacco Use Types Packs/Day [...] Care Team (Late st Contact Info) Description 05/05/2025 11:00 AM EST Office Visit [facility] [place] [address] [place] [address] Andrey Phan MD [address] [facility] [place] [address] documented as of this encounter Visit Diagnoses Not on filedocumented in this encounter Care Teams Fan Installer Relationship Specialty Start Date End Date Tennille Linton NP [address] [place] [phone] PCP - General Nurse Practitioner 08/07/23 documented as of this encounter
--- OUTSIDE RECORDS SUMMARY | 2025-03-15 12:00 | XMS_ITS | Encounter Summary ---
Author Organization [facility] Address [address] [address] Phone Care Team Providers Care Wind Energy Technician Name Role Phone Tennille Linton NP Primary Care Provider + Encounter Details Date Type Department Care Team (Late st Contact Info) Description 04/27/2024 Documentation Only [facility] [place], [address] [place] [address] [place] [address] [place] [phone] Social History Tobacco Use Types Packs/Day [...] Visit [facility] [place] [address] [place] [place] [address] Andrey Phan MD [address] [facility] [place] [address] documented as of this encounter Visit Diagnoses Not on filedocumented in this encounter Care Teams Wind Energy Technician Relationship Specialty Start Date End Date Tennille Linton NP [address] [place] [phone] PCP - General Nurse Practitioner 08/07/23 documented as of this encounter
--- OUTSIDE RECORDS SUMMARY | 2025-03-15 12:00 | XMS_ITS | Encounter Summary ---
Author Organization [facility] Address [address] [address] Phone Care Team Providers Care Case Assistant Name Role Phone Tennille Linton NP Primary Care Provider + Encounter Details Date Type Department Care Team (Late st Contact Info) Description 06/04/2024 Documentation Only [facility] [place], [address] [place] [address] [place] [address] [place] [phone] Social History Tobacco Use Types Packs/Day [...] Visit [facility] [place] [address] [place] [place] [address] Andrey Phan MD [address] [facility] [place] [address] documented as of this encounter Visit Diagnoses Not on filedocumented in this encounter Care Teams Case Assistant Relationship Specialty Start Date End Date Tennille Linton NP [address] [place] [phone] PCP - General Nurse Practitioner 08/07/23 documented as of this encounter
--- OUTSIDE RECORDS SUMMARY | 2025-03-15 12:00 | XMS_ITS | Encounter Summary ---
Author Organization [facility] Address [address] [address] Phone Care Team Providers Care Cloth Winder Machine Operator Name Role Phone Tennille Linton Sloane NATHAN Primary Care Provider + Reason for Visit * Reason Comments Med Refill Encounter Details Date Type Department Care Team (Late st Contact Info) Description 06/08/2022 Refill [facility] [place], [address] [place] [address] Andrey Phan MD [address] [facility] [place] [address] Social History Tobacco Use Types [...] Visit [facility] [place] [address] [place] [phone] Andrey Phan MD [address] [facility] [place] [address] documented as of this encounter Visit Diagnoses Not on filedocumented in this encounter Care Teams Cloth Winder Machine Operator Relationship Specialty Start Date End Date Tennille Linton NP [address] [place] [phone] PCP - General Nurse Practitioner 08/07/23 documented as of this encounter
--- OUTSIDE RECORDS SUMMARY | 2025-03-15 12:00 | XMS_ITS | Encounter Summary ---
Author Organization [facility] Address [address] [address] Phone Care Team Providers Care General Neurologist Name Role Phone Tennille Linton NP Primary Care Provider + Encounter Details Date Type Department Care Team (Late st Contact Info) Description 04/22/2024 Documentation Only [facility] [place], [address] [facility] [place] [address] [place] [address] [place] [phone] Social History Tobacco Use Types Packs/Day [...] Visit [facility] [place] [address] [facility] [place] [address] Andrey Phan MD [address] [facility] [place] [address] documented as of this encounter Visit Diagnoses Not on filedocumented in this encounter Care Teams General Neurologist Relationship Specialty Start Date End Date Tennille Linton NP [address] [place] [phone] PCP - General Nurse Practitioner 08/07/23 documented as of this encounter
--- OUTSIDE RECORDS SUMMARY | 2025-03-15 12:00 | XMS_ITS | Encounter Summary ---
Author Organization [facility] Address [address] [address] Phone Care Team Providers Care Waist Presser Name Role Phone Tennille Linton NP Primary Care Provider + Encounter Details Date Type Department Care Team (Late st Contact Info) Description 04/21/2024 Documentation Only [facility] [place], [address] [place] [address] [place] [address] [place] [phone] Social History Tobacco Use Types Packs/Day [...] Visit [facility] [place] [address] [place] [address] Andrey Phan MD [address] [facility] [place] [address] documented as of this encounter Visit Diagnoses Not on filedocumented in this encounter Care Teams Waist Presser Relationship Specialty Start Date End Date Tennille Litnon NP [address] [place] [phone] PCP - General Nurse Practitioner 08/07/23 documented as of this encounter
--- OUTSIDE RECORDS SUMMARY | 2025-03-15 12:00 | XMS_ITS | Encounter Summary ---
Author Organization [facility] Address [address] [place] [address] Care Team Providers Care Men'S And Boys' Clothing Salesperson Name Role Phone Elder, Michelle Alonso MD Primary Care Provider + Encounter Details Date Type Department Care Team (Late st Contact Info) Description 12/15/2024 Lab Requisition [facility] - Main Lab 299 [facility] [employer] [place] [address] Harshad Thornton, PA [address] [place], [place] [phone] Urinary tract infection, site not specified Social [...] Pseudomonas aeruginosa(A) YENNIFER 12/18/2024 10:25 AM EDT [facility] ([facility] Comment: This is an edited [...] Susceptible Pseudomonas aeruginosa Cefepime DISK DIFFUSION Susceptible [facility] MICROBIOLOGY - [facility] KEIRY LEACH Final Result [facility] ([facility]) [facility] [address] [place] [address], documented in this encounter Visit Diagnoses Diagnosis Urinary tract infection, site not specified documented in this encounter Additional Health Concerns Infection Onset Date Last Indicated Resolved Time MDRO (other) 12/15/2024 12/15/2024 documented as of this encounter Care Teams Men'S And Boys' Clothing Salesperson Relationship Specialty Start Date End Date Michelle Rucker MD [address] [place] [phone] PCP - General Family Medicine 05/06/24 documented as of this encounter
--- OUTSIDE RECORDS SUMMARY | 2025-03-15 12:00 | XMS_ITS | Encounter Summary ---
Author Organization [facility] Address [address] [address] Phone Care Team Providers Care Communications Superintendent Name Role Phone Tennille Linton NP Primary Care Provider + Encounter Details Date Type Department Care Team (Late st Contact Info) Description 12/09/2024 Documentation Only [facility] [place], [address] [place] [address] [place] [address] [place] [phone] Social History Tobacco Use Types Packs/Day [...] Visit [facility] [place] [address] [place] [address] Andrey Phan MD [address] [facility] [place] [address] documented as of this encounter Visit Diagnoses Not on filedocumented in this encounter Care Teams Communications Superintendent Relationship Specialty Start Date End Date Tennille Linton NP [address] [place] [phone] PCP - General Nurse Practitioner 08/07/23 documented as of this encounter
--- OUTSIDE RECORDS SUMMARY | 2025-03-15 12:00 | XMS_ITS | Continuity of Care Document ---
Author Organization [facility] Address [address] [facility] [address] [place], [place] Phone [phone] Care Team Providers Care Research Director Name Role Phone Lashell Aguilar MD Care [...] SIG Qnty Indications Order ing Provider Date Gyltcci585Iean/ML Solution 6-10 unit subcutaneous three times a day 3vials Tessa Paredes M.D. 03/19/2017 Rosuvastatin Fbbyjdi2im Tablets 1/2 By Mouth Every Day 14tabs E10.8 Tessa Paredes M.D. 10/15/2016 [facility] Syr/NDL 29G 0.5ML U/F Use 1 Syringe Under The Skin Three Times Daily 90units E10.8 Tessa Paredes M.D. 12/03/2014 Freestyle Lite TestStrips 1 Strip To Meter 8 Times A Day 750units E10.8 Tessa Paredes M.D. 11/27/2014 N25.9 Onhzds541Jotj/ML Solution 12 unit subcutaneous twice a day 1units Tessa Paredes M.D. 11/05/2014 Freestyle LiteStrips (Blood Sugar Use 1 Strip Every Two Hours While Awake Check Blood Sugar 6-8 Timesa Day 750units E10.8 Tessa Paredes M.D. 09/29/2014 Jiwoqdclwy72ne Tablets TK 1 T PO qd Unkn own Bmklgsbsez39.5mg Tablets TK 1 T PO bid U nknown Amlodipine Gtjvojco23if Tablets 1 by mouth every day Jeff Lobo MD Mzrznptcm5qy Tablets 1 by mouth every day 30tabs Tessa Paredes M.D. Hydralazine GMN95af Tablets Jeff Lobo MD Doxazosin Ewpvwcvc0sp Tablets TK 1 T PO QHS Unknown Vybsxf898ed Tablets 1 tab by mouth daily Unknown Citrate Unknown History Medications Pravastatin Yrbgxd45gz Tablets 1 by mouth every day 30tabs E10.8 Tessa Paredes M.D. 07/06/2016 - 10/15/2016 Levothyroxine Hvnfll90zvq Tablets 1/2 by mouth every day=12.5/d 45tabs E03.9 Tessa Paredes M.D. 04/05/2016 - 07/06/2016 Etnlsmp538Uspv/ML Solution inject 6-10 units subcutaneously 3 times a day 30ml Tessa Paredes M.D. 11/05/2014 - 03/19/2017 Sertraline QIN07vk Tablets TK 1 T PO qd Unknown - 11/05/2014 Oxycodone HCL5mg Tablets Unknown - 11/05/2014 Vrbkrm413Glvs/ML Solution Jeff Lobo MD - 11/05/2014 Penicillin V Uloyyxnvn230zx Tablets TK 1 T PO Q 6 H Tat Unknown - 11/05/2014 Hydrocodone-Acetamin ophen5-325mg Tablets TK 1 T PO Q 4 To 6 H prn P For 7 Days Unknown - 11/05/2014 Tamsulosin HCL0.4mg Capsules TK One C PO bid For 30 Days Unknown - 11/05/2014 Idkepecg33vo Tablets TK 2 TS PO D For 30 Days Unknown - 11/05/2014 Ciprofloxacin YNL921mw Tablets TK 1 T PO Once D Unknown - 11/05/2014 Hydrocodone-Acetamin -539aa Tablets TK 1 T PO Q 6 H prn P Unknown - 11/05/2014 Ondansetron HCL8mg Tablets TK 1 T PO tid Unknown - 11/05/2014 Ohhlchks210qc Tablets TK 1 T PO D For 30 Days Unknown - 11/05/2014 Losartan Bldtjrlkx328sv Tablets TK 1 T PO qd Unknown - 11/05/2014 Trazodone ZYE38zi Tablets TK 1 T PO qd Unknown - 11/05/2014 Atorvastatin Cvfgigd17th Tablets TK 1 T PO Once A Day hs Unknown - 11/05/2014
--- OUTSIDE RECORDS SUMMARY | 2025-03-15 12:01 | XMS_ITS | Encounter Summary ---
Author Organization [facility] Address [address] [address] Phone Care Team Providers Care Operations Inspector Name Role Phone Tennille Linton NP Primary Care Provider + Encounter Details Date Type Department Care Team (Late st Contact Info) Description 10/29/2024 Documentation Only [facility] [place], [address] [facility] [place] [address] [place] [address] [place] [phone] Social History Tobacco Use Types Packs/Day [...] Visit [facility] [place] [address] [facility] [place] [address] Andrey Phan MD [address] [facility] [place] [address] documented as of this encounter Visit Diagnoses Not on filedocumented in this encounter Care Teams Operations Inspector Relationship Specialty Start Date End Date Tennille Linton NP [address] [place] [phone] PCP - General Nurse Practitioner 08/07/23 documented as of this encounter
--- OUTSIDE RECORDS SUMMARY | 2025-03-15 12:01 | XMS_ITS | Encounter Summary ---
Author Organization [facility] Address [address] [address] Phone Care Team Providers Care Plodder Operator Name Role Phone Tennille Linton Sloane NATHAN Primary Care Provider + Reason for Visit * Reason Comments Med Refill Encounter Details Date Type Department Care Team (Late st Contact Info) Description 12/04/2022 Refill [facility] [place], [address] [facility] [facility] [place] [address] Andrey Phan MD [address] [facility] [place] [address] Social History Tobacco Use Types [...] Visit [facility] [place] [address] [facility] [place] [address] Andrey Phan MD [address] [facility] [place] [address] documented as of this encounter Visit Diagnoses Not on filedocumented in this encounter Care Teams Plodder Operator Relationship Specialty Start Date End Date Tennille Linton NP [address] [place] [phone] PCP - General Nurse Practitioner 08/07/23 documented as of this encounter
--- OUTSIDE RECORDS SUMMARY | 2025-03-15 12:01 | XMS_ITS | Encounter Summary ---
Author Organization [facility] [place], Address [address] [address] Phone Care Team Providers Care Special Ed Assistant Name Role Phone Royer, Tennille Sloane NATHAN Primary Care Provider + Reason for Visit * Reason Comments Med Refill Encounter Details Date Type Department Care Team (Late st Contact Info) Description 09/18/2022 Refill [facility] [address] [place] [address] Andrey Phan MD [address] [place] [address] [place] [address] Social History Tobacco Use Types [...] Visit [facility] [address] [place] [phone] Andrey Phan MD [address] [place] [address] [place] [address] documented as of this encounter Visit Diagnoses Not on filedocumented in this encounter Care Teams Special Ed Assistant Relationship Specialty Start Date End Date Tennille Linton NP [address] [place] [phone] PCP - General Nurse Practitioner 08/07/23 documented as of this encounter
--- OUTSIDE RECORDS SUMMARY | 2025-03-15 12:01 | XMS_ITS | Encounter Summary ---
Author Organization [facility] [place], Address [address] [address] Phone Care Team Providers Care Foreclosure Field Inspector Name Role Phone RoyerTennille cantor Sloane NATHAN Primary Care Provider + Reason for Visit * Reason Comments Med Refill Encounter Details Date Type Department Care Team (Late st Contact Info) Description 07/23/2022 Refill [facility] [address] [place] [address] Denise Isbell PA [address] [place] [address] [place] [address] Social History Tobacco Use Types [...] Visit [facility] [place] [address] [facility] [place] [phone] Andrey Phan MD [address] [place] [address] [place] [phone] documented as of this encounter Visit Diagnoses Not on filedocumented in this encounter Care Teams Foreclosure Field Inspector Relationship Specialty Start Date End Date Tennille Linton NP [address] [place] [phone] PCP - General Nurse Practitioner 08/07/23 documented as of this encounter
--- OUTSIDE RECORDS SUMMARY | 2025-03-15 12:01 | XMS_ITS | Encounter Summary ---
Author Organization [facility] Address [address] [address] Phone Care Team Providers Care Cloth Stretcher Name Role Phone Tennille Linton NP Primary Care Provider + Encounter Details Date Type Department Care Team (Late st Contact Info) Description 10/05/2024 Documentation Only [facility] [place], [address] [facility] [place] [address] [place] [address] [place] [phone] Social History Tobacco Use Types Packs/Day [...] Visit [facility] [place] [address] [facility] [facility] [place] [address] Andrey Phan MD [address] [facility] [place] [address] documented as of this encounter Visit Diagnoses Not on filedocumented in this encounter Care Teams Cloth Stretcher Relationship Specialty Start Date End Date Tennille Linton NP [address] [place] [phone] PCP - General Nurse Practitioner 08/07/23 documented as of this encounter
--- OUTSIDE RECORDS SUMMARY | 2025-03-15 12:01 | XMS_ITS | Encounter Summary ---
Author Organization [facility] [place], Address [address] [address] Phone Care Team Providers Care Punch Press Operator Helper Name Role Phone Royer, Tennille Sloane NATHAN Primary Care Provider + Reason for Visit * Reason Comments Med Refill Encounter Details Date Type Department Care Team (Late st Contact Info) Description 07/23/2022 Refill [facility] [address] [place] [address] Andrey Phan MD [address] [place] [address] [place] [address] Social History Tobacco Use Types [...] Visit [facility] [address] [place] [phone] Andrey Phan MD [address] [place] [address] [place] [address] documented as of this encounter Visit Diagnoses Not on filedocumented in this encounter Care Teams Punch Press Operator Helper Relationship Specialty Start Date End Date Tennille Linton NP [address] [place] [phone] PCP - General Nurse Practitioner 08/07/23 documented as of this encounter
--- OUTSIDE RECORDS SUMMARY | 2025-03-15 12:01 | XMS_ITS | Clinical Summary ---
Author Organization [facility], Address [address] [place] [address] Phone Care Team Providers Care Process Development Technician Name Role Phone Tennille Linton NP Primary Care Provider + Allergies Active Allergy Reactions Criticality Noted Date Comments Hydromorphone Other (see comments) 08/12/2019 Oxycodone-Acetaminophen 06/29/2019 Phenytoin 06/29/2019 Medications aspirin (ST MAGNO) 81 MG EC tablet Take 1 tablet by mouth 1 (one) time each day Active glucose blood test strip 1 strip by Other route 11/23/19 18 Active Continuous Blood Gluc Pumper Gager Apprentice (DEXCOM G6 HYDRAULIC RUBBISH COMPACTOR MECHANIC) device UTD TO MONITOR BS 08/24/19 20 Active Continuous Blood Gluc Sensor (DEXCOM G6 SENSOR) [facility]ITOR BS CHANGE EVERY 10 DAYS 10/01/19 20 Active Continuous Blood Gluc Transmit (DEXCOM G6 TRANSMITTER) [facility] UTD TO MONITOR BS. CHANGE EVERY 90 DAYS 09/30/19 20 Active BD PEN NEEDLE BASSAM U/F 32G X 4 MM [facility] USE TO INJECT INSULIN ONCE DAILY 08/19/19 20 Active B-D ULTRAFINE III SHORT PEN 31G X 8 MM [facility] 09/08/19 20 Active Insulin Aspart FlexPen 100 [...] Encounters Date Type Department Care Team Description 03/10/2025 Telephone [facility] [address] [place] [address] Danica Price RN 03/09/2025 9:15 AM EDT Office Visit [facility] [address] [place] [address] Andrey Phan MD History of immunosuppressive therapy (Primary Dx); Kidney replaced by transplant; Stage 3b chronic kidney disease (HCC); 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) 03/05/2025 Documentation Only [facility] [address] [place] [address] Stephanie Mina MA 03/04/2025 Documentation Only [facility] [address] [place] [address] Annika Mcclure MA 03/01/2025 Orders Only [facility] [address] [place] [address] Annika Mcclure [place] Stage 3b chronic kidney disease (HCC) (Primary Dx); History of immunosuppressive therapy; Kidney replaced by transplant; 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); Hypervolemia; History of renal transplant; Poor glycemic control; Other iron deficiency anemia; Primary hyperparathyroidism (HCC); Albuminuria, not otherwise specified; BK virus nephropathy 02/24/2025 Orders Only [facility] [address] [place] [address] Annika Mcclure MA 01/18/2025 Refill [facility] [address] [place] [address] Namita Marinelli 01/13/2025 Refill [facility] [address] [place] [address] Zeinab Walker 01/11/2025 Telephone [facility] [address] [place] [address] Annika Mcclure MA 01/09/2025 Documentation Only [facility] [place] [address] [place] [address] Gagandeep Sims MD 01/08/2025 Documentation Only [facility] [address] [place] [address] Annika Mcclure MA 01/08/2025 Telephone [facility] [address] [place] [address] Yaneth Rudolph FNP-C 01/08/2025 Refill [facility] [address] [place] [address] Danica Price RN 01/07/2025 1:15 PM EDT Clinical Support [facility] [address] [place] [address] Yaneth Rudolph FNP-C Stage 3b chronic kidney disease (HCC) (Primary Dx); History of immunosuppressive therapy; Kidney replaced by transplant 01/07/2025 Office Communication [facility] [address] [place] [address] Zeinab Walker 01/07/2025 Orders Only [facility] [address] [place] [address] Zeinab Walker BK virus nephropathy (Primary Dx); 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); History of immunosuppressive therapy; Kidney replaced by transplant 01/01/2025 Telephone [facility] [address] [place] [address] Danica Price RN 01/01/2025 Telephone [facility] [address] [place] [address] Annika Mcclure MA 12/31/2024 Documentation Only [facility] [address] [place] [address] Annika Mcclure MA 12/31/2024 Documentation Only [facility] [address] [place] [address] Annika Mcclure MA 12/31/2024 Documentation Only [facility] [address] [place] [address] Annika Mcclure MA 12/28/2024 Orders Only [facility] [address] [place] [address] Annika Mcclure, VICKY Stage 3b chronic kidney disease (HCC) (Primary Dx); History of immunosuppressive therapy; Kidney replaced by transplant; 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 [address] Health Maintenance Due Date Last Done Comments Diabetes: Ophthalmology Exam 07/09/2019 Diabetes: Pedal Pulse Checked 07/09/2019 Diabetes: Sensory Foot Exam 07/09/2019 Diabetes: Visual Foot Exam 07/09/2019 Colonoscopy (Post-Transplant Patient) 02/03/2020 Pneumococcal Vaccine: 50+ Years (4 of 4 - PCV20 or PCV21) 01/16/2022 01/16/2017, 09/22/2015, 03/01/2015, Additional history exists Influenza Vaccine (#1) 2025 , 03/17/2020, 04/03/2019, Additional history exists Diabetes: Hemoglobin [...] Highly Sensitive, LC/MS/MS (01/04/2025 9:25 AM EDT) Result [facility] Andrey Phan MD LAB BLOOD ORDERABLES Final Result Performing Organization Address [facility] de Phone Number [facility] * Urinalysis, Complete w/reflex to Culture (01/04/2025 9:25 AM EDT) Urine Urine specimen obtained by clean catch procedure / Unknown Result [facility] Andrey Phan MD LAB URINE ORDERABLES Final Result Performing Organization Address [facility] de Phone Number [facility] * Iron Panel (Fe, TIBC, TSAT) (01/04/2025 9:25 AM EDT) Blood Venous blood / Unknown Result [facility] Andrey Phan MD LAB BLOOD ORDERABLES Final Result Performing Organization Address [facility] de Phone Number [facility] * Urine Albumin / Creatinine Ratio (01/04/2025 9:25 AM EDT) Urine Urine specimen obtained by clean catch procedure / Unknown Result [facility] Andrey Phan MD LAB URINE ORDERABLES Final Result Performing Organization Address [facility] de Phone Number [facility] * BK Virus Urine, Quant PCR (01/04/2025 9:25 AM EDT) Urine Urine specimen obtained by clean catch procedure / Unknown Andrey Phan MD LAB URINE ORDERABLES Final Result Performing Organization Address [facility] [place] de Phone Number [facility] * BK Virus DNA, Quant PCR (01/04/2025 9:25 AM EDT) Blood Venous blood / Unknown Andrey Phan MD LAB BLOOD ORDERABLES Final Result Performing Organization Address [facility] de Phone Number [facility] * CBC and Differential (01/04/2025 9:25 AM EDT) Blood Venous blood / Unknown Andrey Phan MD LAB BLOOD ORDERABLES Final Result Performing Organization Address [facility] de Phone Number [facility] * ALT (01/04/2025 9:25 AM EDT) Blood Venous blood / Unknown Andrey Phan MD LAB BLOOD ORDERABLES Final Result Performing Organization Address [facility] Phone Number [facility] * AST (01/04/2025 9:25 AM EDT) Blood Venous blood / Unknown Result [facility] Andrey Phan MD LAB BLOOD ORDERABLES Final Result Performing Organization Address [facility] de Phone Number [facility] * PTH, Intact (01/04/2025 9:25 AM EDT) Blood Venous blood / Unknown Andrey Phan MD LAB BLOOD ORDERABLES Final Result Performing Organization Address [facility] de Phone Number [facility] * Hemoglobin A1c (01/04/2025 9:25 AM EDT) Blood Venous blood / Unknown Andrey Phna MD LAB BLOOD ORDERABLES Final Result Performing Organization Address City/[facility] Co de Phone Number [facility] * Ferritin (01/04/2025 9:25 AM EDT) Blood Venous blood / Unknown Andrey Phan MD LAB BLOOD ORDERABLES Final Result Performing Organization Address City/State/[facility] Co de Phone Number [facility] * CK (01/04/2025 9:25 AM EDT) Blood Venous blood / Unknown Andrey Phan MD LAB BLOOD ORDERABLES Final Result Performing Organization Address City/[facility] de Phone Number [facility] * Renal Function Panel (01/04/2025 9:25 AM EDT) Blood Venous blood / Unknown Andrey Phan MD LAB BLOOD ORDERABLES Final Result Performing Organization Address [facility] de Phone Number [facility] from Last 3 Months Insurance [facility] Care Dual SNP ([id number]) [place] [phone] Advance Directives Healthcare Agents on File Name Relationship Healthcare Agent [facility] Communication Nataliia Hartman Sister Health Care Agent Care Teams Process Development Technician Relationship Specialty Start Date End Date Tennille Linton NP [address] [place] [phone] PCP - General Nurse Practitioner 08/07/23
--- OUTSIDE RECORDS SUMMARY | 2025-03-15 12:01 | XMS_ITS | Encounter Summary ---
Author Organization [facility] Address [address] [address] Phone Care Team Providers Care Test Consultant Name Role Phone Tennille Linton NP Primary Care Provider + Encounter Details Date Type Department Care Team (Late st Contact Info) Description 10/06/2024 Documentation Only [facility] [place], [address] [place] [address] [place] [address] [place] [phone] Social History Tobacco Use Types Packs/Day [...] Visit [facility] [place] [address] [place] [address] Andrey Phan MD [address] [facility] [place] [address] documented as of this encounter Visit Diagnoses Not on filedocumented in this encounter Care Teams Test Consultant Relationship Specialty Start Date End Date Tennille Linton NP [address] [place] [phone] PCP - General Nurse Practitioner 08/07/23 documented as of this encounter
--- OUTSIDE RECORDS SUMMARY | 2025-03-15 12:01 | XMS_ITS | Encounter Summary ---
Author Organization [facility] [place], Address [address] [address] Phone Care Team Providers Care Force Variation Equipment Tender Name Role Phone Royer, Tennille Sloane NATHAN Primary Care Provider + Reason for Visit * Reason Comments Med Refill Encounter Details Date Type Department Care Team (Late st Contact Info) Description 09/10/2022 Refill [facility] [address] [place] [place] [address] Andrey Phan MD [address] [place] [address] [place] [address] Social History Tobacco Use Types [...] Visit [facility] [address] [place] [place] [phone] Andrey Phan MD [address] [place] [address] [place] [address] documented as of this encounter Visit Diagnoses Not on filedocumented in this encounter Care Teams Force Variation Equipment Tender Relationship Specialty Start Date End Date Tennille Linton NP [address] [place] [phone] PCP - General Nurse Practitioner 08/07/23 documented as of this encounter
--- OUTSIDE RECORDS SUMMARY | 2025-03-15 12:01 | XMS_ITS | Encounter Summary ---
Author Organization [facility] [place], Address [address] [address] Phone Care Team Providers Care Registered Nurse Hh Case Manager Name Role Phone Royer, Tennille Sloane NATHAN Primary Care Provider + Reason for Visit * Reason Comments Med Refill Encounter Details Date Type Department Care Team (Late st Contact Info) Description 08/13/2022 Refill [facility] [address] [place] [address] Andrey Phan MD [address] [place] [address] [place] [address] Social History Tobacco Use Types [...] Visit [facility] [address] [place] [phone] Andrey Phan MD [address] [place] [address] [place] [address] documented as of this encounter Visit Diagnoses Not on filedocumented in this encounter Care Teams Registered Nurse Hh Case Manager Relationship Specialty Start Date End Date Tennille Linton NP [address] [place] [phone] PCP - General Nurse Practitioner 08/07/23 documented as of this encounter
--- OUTSIDE RECORDS SUMMARY | 2025-03-15 12:01 | XMS_ITS | Encounter Summary ---
Author Organization [facility] Address [address] [address] Phone Care Team Providers Care Rolling Mill Plugger Name Role Phone Tennille Linton NP Primary Care Provider + Encounter Details Date Type Department Care Team (Late st Contact Info) Description 06/29/2022 Documentation Only [facility] [place], [address] [facility] [place] [address] [place] [address] [place] [phone] Social History Tobacco Use Types Packs/Day [...] Visit [facility] [place] [address] [place] [address] Andrey Phan MD [address] [facility] [place] [address] documented as of this encounter Visit Diagnoses Not on filedocumented in this encounter Care Teams Rolling Mill Plugger Relationship Specialty Start Date End Date Tennille Linton NP [address] [place] [phone] PCP - General Nurse Practitioner 08/07/23 documented as of this encounter
--- OUTSIDE RECORDS SUMMARY | 2025-03-15 12:01 | XMS_ITS | Encounter Summary ---
Author Organization [facility] Address [address] [place] [address] [place] [address] Phone Care Team Providers Care Dental Therapist Name Role Phone Tennille Linton NP Primary Care Provider + Anni Quiñonez PA Unavailable [phone] Encounter Details Date Type Department Care Team (Late st Contact Info) Description 02/28/2024 Procedure Pass [facility] [address] [place] [address] Social History Tobacco Use Types Packs/Day Years [...] Team (Late st Contact Info) Description 03/02/2025 Procedure Pass [facility] Marketing And Public Relations Manager [place] [place] [address] 03/23/2025 1:30 PM EDT Office Visit [facility] Center [address] [facility] [address], [place] [address] Daisy Diaz MD, MPH [address] [place] [address] [address] [address] [email or web address] 04/01/2025 12:00 PM EDT Office Visit [facility], [facility] [address] [place] [address] Daisy Diaz MD, MPH [address] [place] [address] [address] [address] [email or web address] 04/01/2025 12:00 PM EDT Office Visit [facility], [facility] [address], [address] [place] [address] Michelle Shearer MD [address] [place] [address] [email or web address] 04/09/2025 11:30 AM EDT Office Visit [facility], [facility] [address], 11th [place] [address] Mary Ann Alford MD, [address] [address] [email or web address] 04/09/2025 2:45 PM EDT Appointment [facility] Marketing And Public Relations Manager [place] [place] [address] Bartolome Sandy MD, MS [address] [facility], [facility] [address] [place] [address] [email or web address] 04/15/2025 9:20 AM EDT Telemedicine [facility] Urology 45 [facility]3 [place] [address] Bartolome Sandy MD, MS [address] [facility], [facility] [address] [place] [address] [email or web address] documented as of this encounter Visit Diagnoses Not on filedocumented in this encounter Care Teams Dental Therapist Relationship Specialty Start Date End Date Tennille Linton NP [address] [place] [address] PCP - General Nurse Practitioner 08/30/23 Anni Quiñonez PA [address] [place] [address] [email or web address] [email or web address] Powertrain Calibration Engineer 08/30/23 shana myers Heart Vascular Program [facility] 03/12/24 documented as of this encounter Additional Source Comments The information contained in this document represents components of the legal health record. It is not the complete legal health record.[facility]
--- OUTSIDE RECORDS SUMMARY | 2025-03-15 12:02 | XMS_ITS | Encounter Summary ---
Author Organization [facility] Address [address] [address] Phone Care Team Providers Care School Bus Driver/Teacher Assistant Name Role Phone Tennille Linton NP Primary Care Provider + Encounter Details Date Type Department Care Team (Late st Contact Info) Description 08/28/2023 Documentation Only [facility] [place], [address] [facility] [place] [address] [place] [address] [place] [phone] Social History Tobacco Use Types Packs/Day [...] Visit [facility] [place] [address] [place] [address] Andrey Phan MD [address] [facility] [place] [address] documented as of this encounter Visit Diagnoses Not on filedocumented in this encounter Care Teams School Bus Driver/Teacher Assistant Relationship Specialty Start Date End Date Tennille Linton NP [address] [place] [phone] PCP - General Nurse Practitioner 08/07/23 documented as of this encounter
--- OUTSIDE RECORDS SUMMARY | 2025-03-15 12:02 | XMS_ITS | Encounter Summary ---
Author Organization [facility] [place], Address [address] [place] [address] Phone Care Team Providers Care Supervisor [employer] Name Role Phone Tennille Linton Sloane NATHAN Primary Care Provider + Reason for Visit * Reason Comments Med Refill Encounter Details Date Type Department Care Team (Late st Contact Info) Description 04/24/2023 Refill [facility] [place], [address] [facility] [place] [address] Denise Isbell PA [address] [facility] [place] [address] Social History Tobacco Use Types Packs/Day Years [...] Visit [facility] [place] [address] [facility] [place] [address] Andrey Phan MD [address] [facility] [place] [address] documented as of this encounter Visit Diagnoses Not on filedocumented in this encounter Care Teams Supervisor [employer] Relationship Specialty Start Date End Date Tennille Linton NP [address] [place] [phone] PCP - General Nurse Practitioner 08/07/23 documented as of this encounter
--- OUTSIDE RECORDS SUMMARY | 2025-03-15 12:02 | XMS_ITS | Encounter Summary ---
Author Organization [facility] Address [address] [address] Phone Care Team Providers Care Coach Wirer Name Role Phone Tennille Linton NP Primary Care Provider + Encounter Details Date Type Department Care Team (Late st Contact Info) Description 08/13/2023 Documentation Only [facility] [place], [address] [facility] [place] [address] [place] [address] [place] [phone] Social History Tobacco Use Types Packs/Day [...] Visit [facility] [place] [address] [facility] [place] [address] Andrey Phan MD [address] [facility] [place] [address] documented as of this encounter Visit Diagnoses Not on filedocumented in this encounter Care Teams Coach Wirer Relationship Specialty Start Date End Date Tennille Linton NP [address] [place] [phone] PCP - General Nurse Practitioner 08/07/23 documented as of this encounter
--- OUTSIDE RECORDS SUMMARY | 2025-03-15 12:02 | XMS_ITS | Clinical Summary ---
Author Organization [facility] Address [address] [place] [address] Phone Care Team Providers Care Air Conditioning Installer Supervisor Name Role Phone Tennille Linton NP Primary Care Provider + Anni Quiñonez PA Unavailable [phone] Allergies Active Allergy Reactions Criticality Noted Date [...] diagnosis of pT1b prostate cancer which is [place] score 3+4=7 (or possibly Andry score 3+3=6 [...] report of inflammatory changes associated with the [place] right kidney, I am concerned that the [...] Description 03/02/2025 3:45 PM EDT Office Visit [facility], [address], [place] [address] Raleigh Arellano MD Malignant neoplasm of prostate (Primary Dx) 03/02/2025 2:00 PM EDT Office Visit [facility], [address] [place] [address] Amauri Rizo MD, PAULA Prostate cancer (Primary Dx) 03/02/2025 1:00 PM EDT Office Visit [facility], [address] [place] [address] Bartolome Sandy MD, MS Prostate cancer (Primary Dx); Malignant neoplasm of prostate 03/02/2025 12:30 PM EDT Infusion [facility] [facility], [address] [place] [address] Bartolome Sandy MD, MS Karlie Mcguire RN Prostate cancer 01/22/2025 Telephone [facility] Center [address] [place] [address] Genna Hogan LPN pathology result 01/20/2025 Documentation [facility], [address], [address] [place] [address] Michelle Shearer MD 01/19/2025 2:12 PM EDT - 01/19/2025 11:59 PM EDT Hospital Encounter [facility], [address] [address] Discharge Disposition: Home or Self Care 01/14/2025 8:40 AM EDT Office Visit [facility], [address], [address] [place] [address] Daisy Sherwood MD, MPH Skin lesion (Primary Dx); Actinic keratosis; History of skin cancer 01/14/2025 Orders Only [facility], [address], [address] [place] [address] Bartolome Sandy MD, MS Prostate cancer (Primary Dx) 01/14/2025 Orders Only [facility], [address], [address] [place] [address] Michelle Shearer MD Squamous cell carcinoma of [...] st Contact Info) Description 03/02/2025 Procedure Pass [facility] De[facility] Clam D[facility] [place] [address] [place] [address] 03/23/2025 1:30 PM EDT Office Visit [facility] Center [address] [place] [address] [place] [address] Daisy Sherwood MD, MPH [address] [place] [address] [place] [address] [email or web address] 04/01/2025 12:00 PM EDT Office Visit [facility], [facility] [address] [facility], 5th [place] [address] Daisy Sherwood MD, MPH [address] [facility] [address] [place] [address] [email or web address] 04/01/2025 12:00 PM EDT Office Visit [facility], [facility] [address] [facility], 5th [place] [address] Michelle Shearer MD [address] [place] [address] [email or web address] 04/09/2025 11:30 AM EDT Office Visit [facility], [facility] [address] [facility], 11th [place] [address] Mary Ann Alford MD, FACS [address] [place] [address] [email or web address] 04/09/2025 2:45 PM EDT Appointment [facility] Deckhand Clam Dredge [place] [address] [place] [address] Bartolome Sandy MD, MS 45 [facility] 113 [place] [address] [email or web address] 04/15/2025 9:20 AM EDT Telemedicine [facility] Urology [address] [place], [place] [address] [place] [address] Bartolome Sandy MD, MS 45 [facility] 113 [place] [address] [email or web address] Health Maintenance Due Date Last Done Comments [...] 04/07/2021, Additional history exists COVID-19 VACCINE ( season) 2025 05/27/2023, 05/03/2022, 03/02/2021, Additional history [...] this topic Medical Devices Implanted Type Area Manager Location Device Identifier Shelf Expiration Date Model / Serial / Lot Semiconductor Processing Technician Anastomosis 3mm Vesselxorthopedic Microvascular Polyethylene S/S Bx/6ea - [id number] Implanted:Qty: 1 on 03/18/2024 by Mary Ann Alford MD, FACS at [facility] STANDARD Left: Neck [employer]IAN 06/12/2027 [id number] / / [id number]- [id number] Loop Recorder Procedures Procedure Name Priority Date/Time Associated Diagnosis Comments PSA DIAGNOSTIC (MONITORING) Routine 03/02/2025 3:48 PM EDT Prostate cancer DERMATOPATHOLOGY Routine 01/14/2025 12:0 0 AM EDT MICROALBUMIN/CREATININE RATIO, RANDOM URINE Routine 03/22/2024 12:19 PM EDT from Last 3 Months or Most Recently Relevant to Health Maintenance Results * PSA diagnostic (monitoring) (03/02/2025 3:48 PM EDT) PSA Monitoring 0.41 0.00 - 4.00 ng/mL [facility] LIC# [id number] Blood 03/02/2025 3:48 PM EDT 03/02/2025 4:03 PM EDT us Bartolome Sandy MD, MS LAB BLOOD ORDERABLES Final Result [facility] LIC# [id number] [address] [place] [address] * Dermatopathology (01/14/2025 12:00 AM EDT) 01/14/2025 01/14/2025 Narrative [facility] - 01/21/2025 11:44 AM EDT CASE: [id number] PATIENT: SILVIA LAW Date: 1955 Sex: Male [facility] Department of Pathology [address] [place], [place] [address]IA License No.: [id number] Vascular Technician: Dr. Francesco Varma M.D., Ph.D. Physician: DAISY [...] Sherwood MD, MPH PATHOLOGY ORDERABLES Final Result Performing Organization Address [facility] de Phone Number [facility] [address] [place] [address] * (ABNORMAL) Microalbumin/creatinine ratio, random urine (03/22/2024 12:19 PM EDT) UR CREATININE 200.2 mg/dL [facility] Comment: No reference values apply. Interpret with other clinical data. MALB/CRE 82.9(H) 0.0 - 30.0 mg/Alb/g Cre [facility] URINE MICROALBUMIN 16.6(H) 0.0 - 2.0 mg/dL [facility] Urine (Urine) 03/22/2024 12: 19 PM EDT 03/22/2024 12:32 PM EDT Mary Ann Alford MD, FACS URINE ORDERABLES Fin al Result Performing Organization Address [facility] Co de Phone Number [facility] [address] [place] [address] from Last 3 Months or Most Recently Relevant to Health Maintenance Insurance MEDICARE REPLACEMENT MEDICARE REPLACEMENT MEDICARE REPLACEMENT CARE MEDICARE REPLACEMENT CARE MEDICARE REPLACEMENT CARE MEDICARE REPLACEMENT Advance Directives For more information, please contact: [phone] (9AM - 5PM Alicia/[facility], Saturday-Saturday) Documents on File Type Date Recorded Patient Gear Hobber Expl anation Healthcare Proxy 03/28/2024 12:50 AM * Full Code (Latest Code Status on File) Date Activated Date Inactivated Comments 03/18/2024 9:06 PM Question Answer Comments Code Status Confirmed With: Patient Care Teams Air Conditioning Installer Supervisor Relationship Specialty Start Date End Date Tennille Linton NP [address] [place] [address] PCP - General Nurse Practitioner 08/30/23 Anni Quiñonez PA [address] [place] [address] [email or web address] Physician Superintendent Oil Field Drilling 08/30/23 shana myers Heart Vascular Program [facility] Nurse Cardiology 03/12/24 Additional Source Comments The information contained in this document represents components of the legal health record. It is not the complete legal health record.[facility]
--- OUTSIDE RECORDS SUMMARY | 2025-03-15 12:02 | XMS_ITS | Encounter Summary ---
Author Organization [facility] Address [address] [address] Phone Care Team Providers Care Accountant Cost Name Role Phone Tennille Linton Sloane NATHAN Primary Care Provider + Reason for Visit * Reason Comments Med Refill Encounter Details Date Type Department Care Team (Late st Contact Info) Description 12/15/2022 Refill [facility] [place], [address] [place] [address] Andrey Phan MD [address] [facility] [place] [address] Social History Tobacco Use Types [...] Visit [facility] [place] [address] [place] [address] Andrey Phan MD [address] [facility] [place] [address] documented as of this encounter Visit Diagnoses Not on filedocumented in this encounter Care Teams Accountant Cost Relationship Specialty Start Date End Date Tennille Linton NP [address] [place] [phone] PCP - General Nurse Practitioner 08/07/23 documented as of this encounter
--- OUTSIDE RECORDS SUMMARY | 2025-03-15 12:02 | XMS_ITS | Encounter Summary ---
Author Organization [facility] Address [address] [address] Phone Care Team Providers Care Certified Prosthetist Vice President Name Role Phone Tennille Linton Sloane NATHAN Primary Care Provider + Reason for Visit * Reason Comments Med Refill Encounter Details Date Type Department Care Team (Late st Contact Info) Description 06/20/2023 Refill [facility] [place], [address] [place] [address] Andrey Phan MD [address] [facility] [place] [address] Social History Tobacco Use Types [...] Visit [facility] [place] [address] [facility] [place] [phone] Andrey Phan MD [address] [facility] [place] [address] documented as of this encounter Visit Diagnoses Not on filedocumented in this encounter Care Teams Certified Prosthetist Vice President Relationship Specialty Start Date End Date Tennille Linton NP [address] [place] [phone] PCP - General Nurse Practitioner 08/07/23 documented as of this encounter
--- OUTSIDE RECORDS SUMMARY | 2025-03-15 12:02 | XMS_ITS | Encounter Summary ---
Author Organization [facility] Address [address] [place] [address] [place] [address] Phone Care Team Providers Care Water/Wastewater Engineer Name Role Phone Tennille Linton NP Primary Care Provider + Anni Quiñonez PA Unavailable [phone] Encounter Details Date Type Department Care Team (Late st Contact Info) Description 02/25/2024 Procedure Pass [facility] Radiology [address] [place] [address] Social History Tobacco Use Types Packs/Day Years [...] st Contact Info) Description 03/02/2025 Procedure Pass [facility] Reading Coach [place] [address] [place] [address] 03/23/2025 1:30 PM EDT Office Visit [facility] Center [address] [place] [address] Daisy Diaz MD, MPH [address] [facility] [address], [place] [address] [email or web address] 04/01/2025 12:00 PM EDT Office Visit [facility], [facility] [address] [facility], 5th [place] [address] Daisy Diaz MD, MPH [address] [facility] [address], [place] [address] [email or web address] 04/01/2025 12:00 PM EDT Office Visit [facility], [facility] [address] [facility], 5th [place] [address] Michelle Shearer MD [address] [place] [address] [email or web address] 04/09/2025 11:30 AM EDT Office Visit [facility], [facility] [address] [facility], 11th [place] [address] Mary Ann Alford MD, FACS [address] [place] [address] [email or web address] 04/09/2025 2:45 PM EDT Appointment [facility] Reading Coach [place] [address] [place] [address] Bartolome Sandy MD, MS 45 [facility] [address] [place] [address] [email or web address] 04/15/2025 9:20 AM EDT Telemedicine [facility] Urology 45 [facility]3 [place] [address] Bartolome Sandy MD, MS 45 [facility], [facility] [address] [place] [address] [email or web address] documented as of this encounter Visit Diagnoses Not on filedocumented in this encounter Care Teams Water/Wastewater Engineer Relationship Specialty Start Date End Date Tennille Linton NP [address] [place] [address] PCP - General Nurse Practitioner 08/30/23 Anni Quiñonez PA [address] [place] [address] [email or web address] Physician Program Production Specialist 08/30/23 shana myers Heart Vascular Program [facility] Tamping Machine Operator Cardiology 03/12/24 documented as of this encounter Additional Source Comments The information contained in this document represents components of the legal health record. It is not the complete legal health record.[facility]
--- OUTSIDE RECORDS SUMMARY | 2025-03-15 12:02 | XMS_ITS | Encounter Summary ---
Author Organization [facility] Address [address] [address] Phone Care Team Providers Care Human Intelligence Name Role Phone Tennille Linton Sloane NATHAN Primary Care Provider + Reason for Visit * Reason Comments Med Refill Encounter Details Date Type Department Care Team (Late st Contact Info) Description 12/10/2022 Refill [facility] [place], [address] [place] [address] Andrey Phan MD [address] [place] [address] Social History Tobacco Use Types [...] [facility] [place] [address] [place] [place] [address] Andrey Phan MD [address] [place] [address] documented as of this encounter Visit Diagnoses Not on filedocumented in this encounter Care Teams Human Intelligence Relationship Specialty Start Date End Date Tennille Linton NP [address] [place] [phone] PCP - General Nurse Practitioner 08/07/23 documented as of this encounter
--- OUTSIDE RECORDS SUMMARY | 2025-03-15 12:03 | XMS_ITS | Encounter Summary ---
Author Organization [facility] Address [address] [facility] [address] [place] [address] Phone Care Team Providers Care Vp Sales Name Role Phone Tennille Linton COMPLIANCE TESTER Primary Care Provider + Anni Quiñonez PA Unavailable [phone] Encounter Details Date Type Department Care Team (Late st Contact Info) Description 03/18/2024 Procedure Pass [facility] Periop [address] [place] [address] Social History Tobacco Use Types Packs/Day Years [...] 03/19/2024 9:00 AM Vani Mei RN * Gregg Suicide Severity Rating Scale (Screener/Recent Self-Report) Question [...] st Contact Info) Description 03/02/2025 Procedure Pass [facility] Electrical Mechanical Technician [place] [address] [place] [address] 03/23/2025 1:30 PM EDT Office Visit [facility] Center [address] [facility] [address], [place] [address] Daisy Diaz MD, MPH [address] [place] [address] [address] [address] [email or web address] 04/01/2025 12:00 PM EDT Office Visit [facility], [address], [address] [place] [address] Daisy Diaz MD, MPH [address] [place] [address] [email or web address] 04/01/2025 12:00 PM EDT Office Visit [facility], [address] [place] [address] Michelle Shearer MD [address] [place] [phone] [email or web address] 04/09/2025 11:30 AM EDT Office Visit [facility], [address], [address] [place] [address] Mary Ann Alford MD, [address] [address] [email or web address] 04/09/2025 2:45 PM EDT Appointment [facility] Electrical Mechanical Technician [place] [address] [place] [address] Bartolome Sandy MD, MS [address] [place], [facility] [address] [place] [address] [email or web address] 04/15/2025 9:20 AM EDT Telemedicine [facility] Urology [address] [facility] [place] [address] Bartolome Sandy MD, MS [address], [facility] [address] [place] [address] [email or web address] documented as of this encounter Visit Diagnoses Not on filedocumented in this encounter Care Teams Vp Sales Relationship Specialty Start Date End Date Tennille Linton NP [address] [place] [address] PCP - General Nurse Practitioner 08/30/23 Anni Quiñonez PA [address] [place] [phone] [email or web address] Physician Machine Cleaner 08/30/23 shana myers Heart Vascular Program [facility] Volunteer Services Coordinator Cardiology 03/12/24 documented as of this encounter Additional Source Comments The information contained in this document represents components of the legal health record. It is not the complete legal health record.[facility]
--- OUTSIDE RECORDS SUMMARY | 2025-03-15 12:03 | XMS_ITS | Encounter Summary ---
Author Organization [facility] Address [address] [place] [address] Care Team Providers Care Tile Mechanic Helper Name Role Phone Michelle Rucker MD Primary Care Provider + Encounter Details Date Type Department Care Team (Late st Contact Info) Description 05/06/2024 Lab Requisition [facility] - Main Lab [address] [facility] [place] [address] Michelle Rucker MD [address] [address] Heart failure, unspecified (CMS/HCC V24, [...] and the performance characteristics determined by [facility]. This confirmation testing has not been cleared or approved by the FDA. The laboratory is regulated under CLIA as qualified to perform high-complexity testing. This test is used for patient testing purposes. It should not be regarded as investigational or for research. Test performed at [facility], [address], [place], [place] [id number] Brittanie Horan MD, PhD - Mechanical Engineering Intern Blood Venous blood specimen / Unknown Venipuncture / Unknown 05/06/2024 6:56 AM EST 05/06/2024 9:44 AM EST us Michelle Rucker MD LAB BLOOD ORDERABLES Fin al Result [facility] [address] [place], [place] [id number] * (ABNORMAL) Comprehensive metabolic panel (05/06/2024 6:56 AM EST) Sodium 137 133 - 145 mmol/L LAB CHEMISTRY METHOD 05/06/2024 12:15 PM EST [facility] Potassium 4.6 3.5 - 5.5 mmol/L LAB CHEMISTRY METHOD 05/06/2024 12:15 PM [facility] Chloride 105 96 - 110 mmol/L LAB CHEMISTRY METHOD 05/06/2024 12:15 PM [facility] CO2 21 21 - 32 mmol/L LAB CHEMISTRY METHOD 05/06/2024 12:15 PM [facility] Anion Gap 11 3 - 11 LAB CHEMISTRY METHOD 05/06/2024 12:15 PM [facility] Glucose 246(H) 70 - 100 mg/dL LAB CHEMISTRY METHOD 05/06/2024 12:15 PM [facility] BUN 24 5 - 25 mg/dL LAB CHEMISTRY METHOD 05/06/2024 12:15 PM [facility] Creatinine 1.63(H) 0.70 - 1.30 mg/dL LAB CHEMISTRY METHOD 05/06/2024 12:15 PM [facility] eGFR 46(L) >=60 mL/min/1. 73m2 LAB CHEMISTRY METHOD 05/06/2024 12:15 PM [facility] Comment:Calculation based on the Chronic Kidney Disease Epidemiology Collaboration (CKD-EPI) equation refit without adjustment for race. BUN/Creatinine Ratio 14.7 LAB CHEMISTRY METHOD 05/06/2024 12:15 PM [facility] Calcium 9.7 8.5 - 10.5 mg/dL LAB CHEMISTRY METHOD 05/06/2024 12:15 PM [facility] AST (SGOT) 19 10 - 42 unit/L LAB CHEMISTRY METHOD 05/06/2024 12:15 PM [facility] ALT (SGPT) 12 10 - 60 unit/L LAB CHEMISTRY METHOD 05/06/2024 12:15 PM [facility] Alkaline Phosphatase 61 42 - 121 unit/L LAB CHEMISTRY METHOD 05/06/2024 12:15 PM [facility] Total Protein 7.1 6.0 - 8.0 g/dL LAB CHEMISTRY METHOD 05/06/2024 12:15 PM EST [facility] Albumin 3.3 3.2 - 5.0 g/dL LAB CHEMISTRY METHOD 05/06/2024 12:15 PM [facility] Total Bilirubin 0.8 0.0 - 1.4 mg/dL LAB CHEMISTRY METHOD 05/06/2024 12:15 PM [facility] Blood Venous blood specimen / Unknown Venipuncture / Unknown 05/06/2024 6:56 AM EST 05/06/2024 9:44 AM EST us Michelle Rucker MD LAB BLOOD ORDERABLES Fin al Result [facility] [address] [place] [address], * (ABNORMAL) Complete blood count (05/06/2024 6:56 AM EST) WBC 13.5(H) 4.8 - 10.8 K/mcL LAB HEMETOLOGY METHOD 05/06/2024 11:34 AM [facility] RBC 4.50 4.50 - 5.50 M/[facility] LAB HEMETOLOGY METHOD 05/06/2024 11:34 AM [facility] Hemoglobin 12.4(L) 13.5 - 17.5 g/dL LAB HEMETOLOGY METHOD 05/06/2024 11:34 AM [facility] Hematocrit 37.8(L) 42.0 - 54.0 % LAB HEMETOLOGY METHOD 05/06/2024 11:34 AM [facility] MCV 83.8 79.0 - 98.0 FL LAB HEMETOLOGY METHOD 05/06/2024 11:34 AM [facility] MCH 27.5 27.0 - 32.0 pcg LAB HEMETOLOGY METHOD 05/06/2024 11:34 AM EST [facility] MCHC 32.8 32.0 - 37.0 g/dL LAB HEMETOLOGY METHOD 05/06/2024 11:34 AM [facility] RDW 12.9 11.0 - 15.0 % LAB HEMETOLOGY METHOD 05/06/2024 11:34 AM [facility] Platelets 248 130 - 400 K/mcL LAB HEMETOLOGY METHOD 05/06/2024 11:34 AM [facility] MPV 11.0 7.0 - 11.0 FL LAB HEMETOLOGY METHOD 05/06/2024 11:34 AM [facility] NRBC 0.0 <1.0 % LAB HEMETOLOGY METHOD 05/06/2024 11:34 AM [facility] NRBC Absolute 0.00 <0.10 K/mcL LAB HEMETOLOGY METHOD 05/06/2024 11:34 AM [facility] Blood Venous blood specimen / Unknown Venipuncture / Unknown 05/06/2024 6:56 AM EST 05/06/2024 9:44 AM EST Michelle Rucker MD LAB BLOOD ORDERABLES Fin al Result [facility] [address] [place] [address], documented in this encounter Visit Diagnoses Diagnosis [...] documented as of this encounter Care Teams Tile Mechanic Helper Relationship Specialty Start Date End Date Michelle Rucker MD [address] [address] PCP - General Family Medicine 05/06/24 documented as of this encounter
--- OUTSIDE RECORDS SUMMARY | 2025-03-15 12:03 | XMS_ITS | Encounter Summary ---
Author Organization [facility] Address [address] [place] [address] [place] [address] Phone Care Team Providers Care Satellite Television Installer Name Role Phone Tennille Linton NP Primary Care Provider + Anni Quiñonez PA Unavailable [phone] Encounter Details Date Type Department Care Team (Late st Contact Info) Description 02/25/2024 Procedure Pass [facility] Radiology [address] [place] [address] Social History Tobacco Use Types Packs/Day Years [...] st Contact Info) Description 03/02/2025 Procedure Pass [facility] Overhead Foreman [place] [address] [place] [address] 03/23/2025 1:30 PM EDT Office Visit [facility] Center [address] [place] [address] Daisy Diaz MD, MPH [address] [facility] [address], [place] [address] [email or web address] 04/01/2025 12:00 PM EDT Office Visit [facility], [facility] [address] [facility], 5th [place] [address] Daisy Diaz MD, MPH [address] [facility] [address], [place] [address] [email or web address] 04/01/2025 12:00 PM EDT Office Visit [facility], [facility] [address] [facility], 5th [place] [address] Michelle Shearer MD [address] [place] [address] [email or web address] 04/09/2025 11:30 AM EDT Office Visit [facility], [facility] [address] [facility], 11th [place] [address] Mary Ann Alford MD, FACS [address] [place] [address] [email or web address] 04/09/2025 2:45 PM EDT Appointment [facility] Overhead Foreman [place] [address] [place] [address] Bartolome Sandy MD, MS 45 [facility] [address] [place] [address] [email or web address] 04/15/2025 9:20 AM EDT Telemedicine [facility] Urology [address] [facility]3 [place] [address] Bartolome Sandy MD, MS 45 [facility], [facility] [address] [place] [address] [email or web address] documented as of this encounter Visit Diagnoses Not on filedocumented in this encounter Care Teams Satellite Television Installer Relationship Specialty Start Date End Date Tennille Linton NP [address] [place] [address] PCP - General Nurse Practitioner 08/30/23 Anni Quiñonez PA [address] [place] [phone] [email or web address] Bus [email or web address] Trolley Dispatcher 08/30/23 shana myers Heart Vascular Program [facility] Biomedical Engineer Cardiology 03/12/24 documented as of this encounter Additional Source Comments The information contained in this document represents components of the legal health record. It is not the complete legal health record.[facility]
--- OUTSIDE RECORDS SUMMARY | 2025-03-15 12:03 | XMS_ITS | Encounter Summary ---
Author Organization [facility] Address [address] [address] Phone Care Team Providers Care Hydraulic Lift Driver Name Role Phone Tennille Linton NP Primary Care Provider + Encounter Details Date Type Department Care Team (Late st Contact Info) Description 12/31/2024 Documentation Only [facility] [place], [address] [place] [address] [place] [address] [place] [phone] Social History Tobacco Use Types Packs/Day [...] Visit [facility] [place] [address] [place] [address] Andrey Phan MD [address] [facility] [address] [place] [address] documented as of this encounter Visit Diagnoses Not on filedocumented in this encounter Care Teams Hydraulic Lift Driver Relationship Specialty Start Date End Date Tennille Linton NP [address] [place] [phone] PCP - General Nurse Practitioner 08/07/23 documented as of this encounter
--- OUTSIDE RECORDS SUMMARY | 2025-03-15 12:03 | XMS_ITS | Encounter Summary ---
Author Organization [facility] Address [address] [address] Phone Care Team Providers Care Statistics Tutor Name Role Phone Tennille Linton NP Primary Care Provider + Encounter Details Date Type Department Care Team (Late st Contact Info) Description 12/31/2024 Documentation Only [facility] [place], [address] [place] [address] [place] [address] [place] [phone] Social History Tobacco Use Types Packs/Day [...] Visit [facility] [place] [address] [place] [address] Andrey Phan MD [address] [facility] [place] [address] documented as of this encounter Visit Diagnoses Not on filedocumented in this encounter Care Teams Statistics Tutor Relationship Specialty Start Date End Date Tennille Linton NP [address] [place] [phone] PCP - General Nurse Practitioner 08/07/23 documented as of this encounter
--- OUTSIDE RECORDS SUMMARY | 2025-03-15 12:03 | XMS_ITS | Encounter Summary ---
Author Organization [facility] Address [address] [address] Phone Care Team Providers Care New Media Strategist Name Role Phone Tennille Linton NP Primary Care Provider + Encounter Details Date Type Department Care Team (Late st Contact Info) Description 12/31/2024 Documentation Only [facility] [place], [address] [facility] [place] [address] [place] [address] [place] [phone] Social History Tobacco Use Types Packs/Day [...] Visit [facility] [place] [address] [facility] [place] [address] Andrey Phan MD [address] [facility] [place] [address] documented as of this encounter Visit Diagnoses Not on filedocumented in this encounter Care Teams New Media Strategist Relationship Specialty Start Date End Date Tennille Linton NP [address] [place] [phone] PCP - General Nurse Practitioner 08/07/23 documented as of this encounter
--- OUTSIDE RECORDS SUMMARY | 2025-03-15 12:03 | XMS_ITS | Encounter Summary ---
Author Organization [facility] Address [address] [address] Phone Care Team Providers Care Lan Engineer Name Role Phone Tennille Linton NP Primary Care Provider + Encounter Details Date Type Department Care Team (Late st Contact Info) Description 01/08/2025 Documentation Only [facility] [place], [address] [facility] [place] [address] [place] [address] [place] [phone] Social History Tobacco Use Types Packs/Day [...] Visit [facility] [place] [address] [facility] [place] [address] Andrey Phan MD [address] [facility] [place] [address] documented as of this encounter Visit Diagnoses Not on filedocumented in this encounter Care Teams Lan Engineer Relationship Specialty Start Date End Date Tennille Linton NP [address] [place] [phone] PCP - General Nurse Practitioner 08/07/23 documented as of this encounter
--- OUTSIDE RECORDS SUMMARY | 2025-03-15 12:03 | XMS_ITS | Encounter Summary ---
Author Organization [facility] Address [address] [address] Phone Care Team Providers Care Ibm Mainframe Systems Programmer Name Role Phone Tennille Linton NP Primary Care Provider + Encounter Details Date Type Department Care Team (Late st Contact Info) Description 03/26/2024 Documentation Only [facility] [place], [address] [facility] [place] [address] [place] [address] [place] [phone] Social History Tobacco Use Types Packs/Day [...] Visit [facility] [place] [address] [facility] [place] [address] Andrey Phan MD [address] [facility] [place] [address] documented as of this encounter Visit Diagnoses Not on filedocumented in this encounter Care Teams Ibm Mainframe Systems Programmer Relationship Specialty Start Date End Date Tennille Linton NP [address] [place] [phone] PCP - General Nurse Practitioner 08/07/23 documented as of this encounter
--- OUTSIDE RECORDS SUMMARY | 2025-03-15 12:03 | XMS_ITS | Encounter Summary ---
Author Organization [facility] [place], Address [address] [place] [address] Phone Care Team Providers Care Golf Player Assistant Name Role Phone RoyerTennille cantor Sloane NATHAN Primary Care Provider + Encounter Details Date Type Department Care Team (Late st Contact Info) Description 01/09/2025 Documentation Only [facility] [place] [address] [place] [phone] Gagandeep Sims MD [address] [place] [address] [place] [address] Social History Tobacco Use Types [...] [facility] [address] [place] [address] Andrey Phan MD [address] [place] [address] [place] [address] documented as of this encounter Visit Diagnoses Not on filedocumented in this encounter Care Teams Golf Player Assistant Relationship Specialty Start Date End Date Tennille Linton NP [address] [place] [phone] PCP - General Nurse Practitioner 08/07/23 documented as of this encounter
--- OUTSIDE RECORDS SUMMARY | 2025-03-15 12:03 | XMS_ITS | Encounter Summary ---
Author Organization [facility] Address [address] [place] [phone] Care Team Providers Care Horticultural Nursery Assistant Name Role Phone Michelle Rucker MD Primary Care Provider + Encounter Details Date Type Department Care Team (Late st Contact Info) Description 05/15/2024 Lab Requisition [facility] - Main Lab [address] [facility] [place] [address] Michelle Rucker MD [address] [place] [address] Kidney transplant status; Squamous cell carcinoma of [...] documented as of this encounter Care Teams Horticultural Nursery Assistant Relationship Specialty Start Date End Date Michelle Rucker MD [address] [place] [address] PCP - General Family Medicine 05/06/24 documented as of this encounter
--- OUTSIDE RECORDS SUMMARY | 2025-03-15 12:03 | XMS_ITS | Encounter Summary ---
Author Organization [facility] Address [address] [facility] [address] [place] [address] Phone Care Team Providers Care Welder Production Line Combination Name Role Phone Tennille Linton SIX PACK PACKER Primary Care Provider + Anni Quiñonez PA Unavailable [phone] Encounter Details Date Type Department Care Team (Late st Contact Info) Description 03/20/2024 Procedure Pass [facility] Echocardiography [address] [place] [address] Social History Tobacco Use Types Packs/Day Years [...] Description 03/02/2025 Procedure Pass [place] and Women's Crew Clerk [employer] [address] [place] [address] 03/23/2025 1:30 PM EDT Office Visit [facility] Center [address] [facility] [address], [place] [address] Daisy Diaz MD, MPH [address] [facility] [address], [place] [address] [email or web address] 04/01/2025 12:00 PM EDT Office Visit [facility], [facility] [address] [facility], 5th [place] [address] Daisy Diaz MD, MPH [address] [facility] [address], [place] [address] [email or web address] 04/01/2025 12:00 PM EDT Office Visit [facility], [facility] [address] [facility], 5th [place] [address] Michelle Shearer MD [address] [place] [phone] [email or web address] 04/09/2025 11:30 AM EDT Office Visit [facility], [address], 11th [place] [address] Mary Ann Alford MD, [address] [address] [email or web address] 04/09/2025 2:45 PM EDT Appointment [facility] and Women's Crew Clerk [address] [address] Bartolome Sandy MD, MS 45 [facility] [address] [place] [address] [email or web address] 04/15/2025 9:20 AM EDT Telemedicine [facility] Urology [address] [place], [place] [address] [place] [address] Bartolome Sandy MD, MS 45 [facility] [address] [place] [address] [email or web address] documented as of this encounter Visit Diagnoses Not on filedocumented in this encounter Care Teams Welder Production Line Combination Relationship Specialty Start Date End Date Tennille Linton NP [address] [place] [address] PCP - General Nurse Practitioner 08/30/23 Anni Quiñonez PA [address] [place] [phone] [email or web address] Machine Set Up Operator 08/30/23 shana myers Heart Vascular Program [facility] Testing Engineer Cardiology 03/12/24 documented as of this encounter Additional Source Comments The information contained in this document represents components of the legal health record. It is not the complete legal health record.[facility]
--- OUTSIDE RECORDS SUMMARY | 2025-03-15 12:03 | XMS_ITS | Encounter Summary ---
Author Organization [facility] Address [address] [place] [address] Care Team Providers Care Solar Energy Sales Specialist Name Role Phone Michelle Rucker MD Primary Care Provider + Encounter Details Date Type Department Care Team (Late st Contact Info) Description 04/29/2024 Lab Requisition [facility] - Main Lab [address] [place] [address] Michelle Rucker MD [address] [employer] 1 [place], [place] [phone] Urinary tract infection, site not specified Social [...] and culture (04/29/2024 8:00 AM EST) Specific [place] Urine 1.012 1.003 - 1.030 LAB URINALYSIS - AUTOMATED METHOD 04/29/2024 2:52 PM [facility] pH, Urine 6.0 5.0 - 8.0 pH LAB URINALYSIS - AUTOMATED METHOD 04/29/2024 2:52 PM [facility] Leukocytes, Urine Trace(A) Negative LAB URINALYSIS - AUTOMATED METHOD 04/29/2024 2:52 PM [facility] Nitrite, Urine Negative Negative LAB URINALYSIS - AUTOMATED METHOD 04/29/2024 2:52 PM [facility] Protein, Urine Trace <=Trace mg/dL LAB URINALYSIS - AUTOMATED METHOD 04/29/2024 2:52 PM [facility] Glucose, Urine 250(A) Negative mg/dL LAB URINALYSIS - AUTOMATED METHOD 04/29/2024 2:52 PM [facility] Ketones, Urine Negative Negative mg/dL LAB URINALYSIS - AUTOMATED METHOD 04/29/2024 2:52 PM [facility] Urobilinogen, Urine 0.2 0.2 - 1.0 mg/dL LAB URINALYSIS - AUTOMATED METHOD 04/29/2024 2:52 PM [facility] Bilirubin, Urine Negative Negative LAB URINALYSIS - AUTOMATED METHOD 04/29/2024 2:52 PM [facility] Blood, Urine Negative Negative LAB URINALYSIS - AUTOMATED METHOD 04/29/2024 2:52 PM [facility] RBC, Urine 2.3 0 - 4 /HPF LAB URINALYSIS - AUTOMATED METHOD 04/29/2024 2:52 PM [facility] WBC, Urine 2.8 0 - 4 /HPF LAB URINALYSIS - AUTOMATED METHOD 04/29/2024 2:52 PM [facility] Squamous Epithelial, Urine 6 0 - 60 /LPF LAB URINALYSIS - AUTOMATED METHOD 04/29/2024 2:52 PM [facility] Bacteria, Urine Negative Negative /HPF [...] ORDERABLES Fin al Result Performing Organization Address [facility] Co de Phone Number [facility] [address] [place] [address], [place] [phone] * (ABNORMAL) Culture urine (04/29/2024 8:00 AM [...] AL ORDERABLES Final Result Performing Organization Address [facility]/ZIP Co de Phone Number [facility] [address] [place] [address], [place] [phone] documented in this encounter Visit Diagnoses Diagnosis Urinary tract infection, site not specified documented in this encounter Additional Health Concerns Infection Onset Date Last Indicated Resolved Time C. difficile Rule-Out 08/14/2024 08/13/20242024 11:06 AM EST MDRO (other) 12/15/2024 12/15/2024 documented as of this encounter Care Teams Solar Energy Sales Specialist Relationship Specialty Start Date End Date Michelle Rucker MD [address] [address] PCP - General Family Medicine 05/06/24 documented as of this encounter
--- OUTSIDE RECORDS SUMMARY | 2025-03-15 12:03 | XMS_ITS | Encounter Summary ---
Author Organization [facility], Address [address] [address] Phone Care Team Providers Care Fsr Name Role Phone Ebony Lintonher Sloane NATHAN Primary Care Provider + Reason for Visit * Reason Comments Med Refill Encounter Details Date Type Department Care Team (Late st Contact Info) Description 12/19/2023 Refill [facility], [address] [place] [address] Kennedy Childs DO [address] [place] [address] Social History Tobacco Use Types [...] Visit [facility] [address] [place] [address] Andrey Phan MD [address] [place] [address] documented as of this encounter Visit Diagnoses Not on filedocumented in this encounter Care Teams Fsr Relationship Specialty Start Date End Date Tennille Linton NP [address] [place] [phone] PCP - General Nurse Practitioner 08/07/23 documented as of this encounter
--- OUTSIDE RECORDS SUMMARY | 2025-03-15 12:03 | XMS_ITS | Encounter Summary ---
Author Organization [facility] Address [address] [place] [address] [address] [place] [phone] Phone Care Team Providers Care Admin Assistant Name Role Phone Tennille Linton NP Primary Care Provider + Anni Quiñonez PA Unavailable [phone] Encounter Details Date Type Department Care Team (Late st Contact Info) Description 09/17/2024 Procedure Pass [facility] Imaging [facility], [facility] [place], [place] [address] [facility], [address] [place] [address] Social History Tobacco Use Types Packs/Day Years [...] Description 03/02/2025 Procedure Pass [facility] and Women[facility] [place] [address] [place] [address] 03/23/2025 1:30 PM EDT Office Visit [facility] [address] [address], [place] [address] Daisy Diaz MD, MPH [address] [facility] [address], [place] [address] [email or web address] 04/01/2025 12:00 PM EDT Office Visit [facility], [facility] [address] [facility], 5th [place] [address] Daisy Diaz MD, MPH [address] [place] [address] [email or web address] 04/01/2025 12:00 PM EDT Office Visit [facility], [facility] [address] [facility], 5th [place] [address] Michelle Shearer MD [address] [place] [phone] [email or web address] 04/09/2025 11:30 AM EDT Office Visit [facility], [facility] [address] [facility], 11th [place] [address] Mary Ann Alford MD, [address] [address] [email or web address] 04/09/2025 2:45 PM EDT Appointment [facility] and [facility]'s Tube [facility] [place] [address] [place] [address] Bartolome Sandy MD, [place] [address] [facility] [address] [place] [address] [email or web address] 04/15/2025 9:20 AM EDT Telemedicine [facility] Urology [address] [place], [place] [address] [place] [address] Bartolome Sandy MD, MS [address] [facility] [address] [place] [address] [email or web address] documented as of this encounter Visit Diagnoses Not on filedocumented in this encounter Care Teams Admin Assistant Relationship Specialty Start Date End Date Tennille Linton NP [address] [place] [phone] PCP - General Nurse Practitioner 08/30/23 Anni Quiñonez PA [address] [place] [phone] [email or web address] Heat [email or web address] Frost Insulator 08/30/23 shana myers Heart Vascular Program [facility] Primer Supervisor Cardiology 03/12/24 documented as of this encounter Additional Source Comments The information contained in this document represents components of the legal health record. It is not the complete legal health record.[facility]
--- OUTSIDE RECORDS SUMMARY | 2025-03-15 12:03 | XMS_ITS | Encounter Summary ---
Author Organization [facility] Address [address] [facility] [address] [place] [address] Phone Care Team Providers Care Linux Systems Engineer Name Role Phone Tennille Linton FOOD PRODUCTION ASSOCIATE Primary Care Provider + Anni Quiñonez PA Unavailable [phone] Encounter Details Date Type Department Care Team (Late st Contact Info) Description 03/24/2024 Procedure Pass [facility] [address] [place] [address] Social History Tobacco Use Types Packs/Day Years [...] Description 03/02/2025 Procedure Pass [facility] and Women's Rn Clinical Documentation [place] [address] [place] [address] 03/23/2025 1:30 PM EDT Office Visit [facility] [address] [facility] [address], [place] [address] Daisy Diaz MD, MPH [address] [facility] [address] [address] [email or web address] 04/01/2025 12:00 PM EDT Office Visit [facility], [facility] [address] [facility], 5th [place] [address] Daisy Diaz MD, MPH [address] [facility] [address] [address] [email or web address] 04/01/2025 12:00 PM EDT Office Visit [facility], [facility] [address] [facility], 5th [place] [address] Michelle Shearer MD [address] [place] [phone] [email or web address] 04/09/2025 11:30 AM EDT Office Visit [facility], [facility] [address] [facility], 11th [place] [address] Mary Ann Alford MD, [address] [address] [email or web address] 04/09/2025 2:45 PM EDT Appointment [facility] and Women's Rn Clinical Documentation [address] [address] Bartolome Sandy MD, [place] [address] [facility] [address] [place] [address] [email or web address] 04/15/2025 9:20 AM EDT Telemedicine [facility] Urology [address] [facility] [place] [address] Bartolome Sandy MD, MS [address] [facility] [address] [place] [address] [email or web address] documented as of this encounter Visit Diagnoses Not on filedocumented in this encounter Care Teams Linux Systems Engineer Relationship Specialty Start Date End Date Tennille Linton NP [address] [place] [address] PCP - General Nurse Practitioner 08/30/23 Anni Quiñonez PA [address] [place] [phone] [email or web address] Physician Gelatin Maker Utility 08/30/23 shana myers Heart Vascular Program [facility] Wheel Buffer Cardiology 03/12/24 documented as of this encounter Additional Source Comments The information contained in this document represents components of the legal health record. It is not the complete legal health record.[facility]
--- OUTSIDE RECORDS SUMMARY | 2025-03-15 12:04 | XMS_ITS | Encounter Summary ---
Author Organization [facility] Address [address] [place] [phone] Care Team Providers Care Administrative Law Judge Name Role Phone Michelle Rucker MD Primary Care Provider + Encounter Details Date Type Department Care Team (Late st Contact Info) Description 05/13/2024 Lab Requisition [facility] - Main Lab [address] [facility] [place] [address] Michelle Rucker MD [address] [phone] Heart failure, unspecified (CMS/HCC V24, CMS/HCC V28); [...] mmol/L LAB CHEMISTRY METHOD 05/13/2024 12:10 PM [facility] Potassium 4.6 3.5 - 5.5 mmol/L LAB CHEMISTRY METHOD 05/13/2024 12:10 PM [facility] Chloride 105 96 - 110 mmol/L LAB CHEMISTRY METHOD 05/13/2024 12:10 PM [facility] CO2 23 21 - 32 mmol/L LAB CHEMISTRY METHOD 05/13/2024 12:10 PM [facility] Anion Gap 10 3 - 11 LAB CHEMISTRY METHOD 05/13/2024 12:10 PM [facility] Glucose 144(H) 70 - 100 mg/dL LAB CHEMISTRY METHOD 05/13/2024 12:10 PM [facility] BUN 30(H) 5 - 25 mg/dL LAB CHEMISTRY METHOD 05/13/2024 12:10 PM [facility] Creatinine 2.06(H) 0.70 - 1.30 mg/dL LAB CHEMISTRY METHOD 05/13/2024 12:10 PM [facility] eGFR 35(L) >=60 mL/min/1. 73m2 LAB CHEMISTRY METHOD 05/13/2024 12:10 PM [facility] Comment:Calculation based on the Chronic Kidney Disease Epidemiology Collaboration (CKD-EPI) equation refit without adjustment for race. BUN/Creatinine Ratio 14.6 LAB CHEMISTRY METHOD 05/13/2024 12:10 PM [facility] Calcium 9.8 8.5 - 10.5 mg/dL LAB CHEMISTRY METHOD 05/13/2024 12:10 PM [facility] AST (SGOT) 14 10 - 42 unit/L LAB CHEMISTRY METHOD 05/13/2024 12:10 PM [facility] ALT (SGPT) 14 10 - 60 unit/L LAB CHEMISTRY METHOD 05/13/2024 12:10 PM [facility] Alkaline Phosphatase 54 42 - 121 unit/L LAB CHEMISTRY METHOD 05/13/2024 12:10 PM [facility] Total Protein 6.5 6.0 - 8.0 g/dL LAB CHEMISTRY METHOD 05/13/2024 12:10 PM [facility] Albumin 2.8(L) 3.2 - 5.0 g/dL LAB CHEMISTRY METHOD 05/13/2024 12:10 PM [facility] Total Bilirubin 0.3 0.0 - 1.4 mg/dL LAB CHEMISTRY METHOD 05/13/2024 12:10 PM [facility] Blood Venous blood specimen / Unknown Venipuncture / Unknown 05/13/2024 6:07 AM EST 05/13/2024 8:50 AM EST Michelle Rucker MD LAB BLOOD ORDERABLES Fin al Result [facility] [address] [place] [address], * (ABNORMAL) Complete blood count (05/13/2024 6:07 AM EST) WBC 8.3 4.8 - 10.8 K/mcL LAB HEMETOLOGY METHOD 05/13/2024 10:51 AM [facility] RBC 4.10(L) 4.50 - 5.50 M/mcL LAB HEMETOLOGY METHOD 05/13/2024 10:51 AM [facility] Hemoglobin 10.8(L) 13.5 - 17.5 g/dL LAB HEMETOLOGY METHOD 05/13/2024 10:51 AM [facility] Hematocrit 34.5(L) 42.0 - 54.0 % LAB HEMETOLOGY METHOD 05/13/2024 10:51 AM [facility] MCV 85.2 79.0 - 98.0 FL LAB HEMETOLOGY METHOD 05/13/2024 10:51 AM [facility] MCH 26.7(L) 27.0 - 32.0 pcg LAB HEMETOLOGY METHOD 05/13/2024 10:51 AM [facility] MCHC 31.3(L) 32.0 - 37.0 g/dL LAB HEMETOLOGY METHOD 05/13/2024 10:51 AM [facility] RDW 13.0 11.0 - 15.0 % LAB HEMETOLOGY METHOD 05/13/2024 10:51 AM [facility] Platelets 250 130 - 400 K/mcL LAB HEMETOLOGY METHOD 05/13/2024 10:51 AM [facility] MPV 10.7 7.0 - 11.0 FL LAB HEMETOLOGY METHOD 05/13/2024 10:51 AM [facility] NRBC 0.0 <1.0 % LAB HEMETOLOGY METHOD 05/13/2024 10:51 AM [facility] NRBC Absolute 0.00 <0.10 K/mcL LAB HEMETOLOGY METHOD 05/13/2024 10:51 AM [facility] Blood Venous blood specimen / Unknown Venipuncture / Unknown 05/13/2024 6:07 AM EST 05/13/2024 8:50 AM EST us Michelle Rucker MD LAB BLOOD ORDERABLES Fin al Result [facility] [address] [place] [address], documented in this encounter Visit Diagnoses Diagnosis Heart failure, unspecified (CMS/HCC V24, [facility] V28) Heart failure, unspecified Type 1 diabetes mellitus with diabetic neuropathy, unspecified ([facility] V24, [facility] V28) Unspecified sequelae of unspecified cerebrovascular disease Kidney transplant status 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 difficile Rule-Out 08/14/2024 08/13/20242024 11:06 AM EST MDRO (other) 12/15/2024 12/15/2024 documented as of this encounter Care Teams Administrative Law Judge Relationship Specialty Start Date End Date Michelle Rucker MD [address] [place] [address] PCP - General Family Medicine 05/06/24 documented as of this encounter
--- OUTSIDE RECORDS SUMMARY | 2025-03-15 12:04 | XMS_ITS | Encounter Summary ---
Author Organization [facility] Address [address] [place] [phone] Care Team Providers Care Hand Embroiderer Name Role Phone Michelle Rucker MD Primary Care Provider + Encounter Details Date Type Department Care Team (Late st Contact Info) Description 06/19/[address] [facility] - Main Lab [address] [facility] [place] [address] Michelle Rucker MD [address] [phone] Hyperlipidemia, unspecified; Heart failure, unspecified (CMS/HCC V24, [...] documented as of this encounter Care Teams Hand Embroiderer Relationship Specialty Start Date End Date Michelle Rucker MD [address] [address] PCP - General Family Medicine 05/06/24 documented as of this encounter
--- OUTSIDE RECORDS SUMMARY | 2025-03-15 12:04 | XMS_ITS | Encounter Summary ---
Author Organization [facility] Address [address] [place] [address] Care Team Providers Care Tar Heater Operator Name Role Phone Michelle Rucker MD Primary Care Provider + Encounter Details Date Type Department Care Team (Late st Contact Info) Description 07/02/2024 Lab Requisition [facility] - Main Lab 299 [facility] [place] [address] Michelle Rucker MD [address] [address] Heart failure, unspecified (CMS/HCC V24, [...] 25 hydroxy (07/02/2024 7:17 AM EST) Pathologist [facility] Vit D, 25-Hydroxy 48.1 30.0 - 80.0 ng/mL LAB CHEMISTRY METHOD 07/02/2024 12:28 PM EST [facility] Blood Venous blood specimen / Unknown Venipuncture / Unknown 07/02/2024 7:17 AM EST 07/02/2024 9:17 AM EST Michelle Rucker MD LAB BLOOD ORDERABLES Fin al Result Performing Organization Address City/[facility]/ZIP Co de Phone Number [facility] [address] [place] [address], [place] [phone] * Vitamin B12 (07/02/2024 7:17 AM EST) [facility] Vitamin B-12 757 250 - 900 pcg/mL LAB CHEMISTRY METHOD 07/02/2024 12:08 PM EST [facility] Blood Venous blood specimen / Unknown Venipuncture / Unknown 07/02/2024 7:17 AM EST 07/02/2024 9:17 AM EST Michelle Rucker MD LAB BLOOD ORDERABLES Fin al Result [facility] [address] [place] [address], [place] [phone] * Folate (07/02/2024 7:17 AM EST) Pathologist [facility] Folate 6.1 2.8 - 17.0 ng/ml LAB CHEMISTRY METHOD 07/02/2024 12:00 PM EST [facility] Blood Venous blood specimen / Unknown Venipuncture / Unknown 07/02/2024 7:17 AM EST 07/02/2024 9:17 AM EST Michelle Rucker MD LAB BLOOD ORDERABLES Fin al Result Performing Organization Address City/[facility]/ZIP Co de Phone Number [facility] [address] [place] [address], * Magnesium (07/02/2024 7:17 AM EST) Magnesium 2.2 1.9 - 2.6 mg/dL LAB CHEMISTRY METHOD 07/02/2024 11:44 AM EST [facility] Blood Venous blood specimen / Unknown Venipuncture / Unknown 07/02/2024 7:17 AM EST 07/02/2024 9:17 AM EST Michelle Rucker MD LAB BLOOD ORDERABLES Fin al Result Performing Organization Address [facility] Co de Phone Number [facility] [address] [place] [address], * (ABNORMAL) Thyroid stimulating hormone (07/02/2024 7:17 AM EST) TSH 6.64(H) 0.40 - 4.00 mcIU/mL LAB CHEMISTRY METHOD 07/02/2024 12:29 PM EST [facility] Blood Venous blood specimen / Unknown Venipuncture / Unknown 07/02/2024 7:17 AM EST 07/02/2024 9:17 AM EST Michelle Rucker MD LAB BLOOD ORDERABLES Fin al Result Performing Organization Address City/[facility]/ZIP Co de Phone Number [facility] [address] [place] [address], [place] [phone] * (ABNORMAL) Hemoglobin A1c (07/02/2024 7:17 AM EST) Hemoglobin A1C 8.4(H) <6.5 % LAB CHEMISTRY METHOD 07/02/2024 1:47 PM [facility] Mean Bld Glu Estim. 194 mg/dL LAB CHEMISTRY METHOD 07/02/2024 1:47 PM [facility] Blood Venous blood specimen / Unknown Venipuncture / Unknown 07/02/2024 7:17 AM EST 07/02/2024 9:17 AM EST us Michelle Rucker MD LAB BLOOD ORDERABLES Fin al Result [facility] [address] [place] [address], [place] [phone] * (ABNORMAL) Comprehensive metabolic panel (07/02/2024 7:17 AM EST) Sodium 130(L) 133 - 145 mmol/L LAB CHEMISTRY METHOD 07/02/2024 12:14 PM [facility] Potassium 4.8 3.5 - 5.5 mmol/L LAB CHEMISTRY METHOD 07/02/2024 12:14 PM [facility] Chloride 96 96 - 110 mmol/L LAB CHEMISTRY METHOD 07/02/2024 12:14 PM [facility] CO2 26 21 - 32 mmol/L LAB CHEMISTRY METHOD 07/02/2024 12:14 PM [facility] Anion Gap 8 3 - 11 LAB CHEMISTRY METHOD 07/02/2024 12:14 PM [facility] Glucose 452(HH) 70 - 100 mg/dL LAB CHEMISTRY METHOD 07/02/2024 12:14 PM [facility] BUN 31(H) 5 - 25 mg/dL LAB CHEMISTRY METHOD 07/02/2024 12:14 PM [facility] Creatinine 1.53(H) 0.70 - 1.30 mg/dL LAB CHEMISTRY METHOD 07/02/2024 12:14 PM [facility] eGFR 50(L) >=60 mL/min/1. 73m2 LAB CHEMISTRY METHOD 07/02/2024 12:14 PM [facility] Comment:Calculation based on the Chronic Kidney Disease Epidemiology Collaboration (CKD-EPI) equation refit without adjustment for race. BUN/Creatinine Ratio 20.3 LAB CHEMISTRY METHOD 07/02/2024 12:14 PM [facility] Calcium 9.8 8.5 - 10.5 mg/dL LAB CHEMISTRY METHOD 07/02/2024 12:14 PM [facility] AST (SGOT) 16 10 - 42 unit/L LAB CHEMISTRY METHOD 07/02/2024 12:14 PM [facility] ALT (SGPT) 13 10 - 60 unit/L LAB CHEMISTRY METHOD 07/02/2024 12:14 PM [facility] Alkaline Phosphatase 84 42 - 121 unit/L LAB CHEMISTRY METHOD 07/02/2024 12:14 PM [facility] Total Protein 6.7 6.0 - 8.0 g/dL LAB CHEMISTRY METHOD 07/02/2024 12:14 PM [facility] Albumin 2.5(L) 3.2 - 5.0 g/dL LAB CHEMISTRY METHOD 07/02/2024 12:14 PM [facility] Total Bilirubin 0.5 0.0 - 1.4 mg/dL LAB CHEMISTRY METHOD 07/02/2024 12:14 PM [facility] Blood Venous blood specimen / Unknown Venipuncture / Unknown 07/02/2024 7:17 AM EST 07/02/2024 9:17 AM EST us Michelle Rucker MD LAB BLOOD ORDERABLES Fin al Result [facility] [address] [place] [address], * (ABNORMAL) Complete blood count (07/02/2024 7:17 AM EST) WBC 9.2 4.8 - 10.8 K/mcL LAB HEMETOLOGY METHOD 07/02/2024 10:51 AM [facility] RBC 4.50 4.50 - 5.50 M/mcL LAB HEMETOLOGY METHOD 07/02/2024 10:51 AM [facility] Hemoglobin 11.5(L) 13.5 - 17.5 g/dL LAB HEMETOLOGY METHOD 07/02/2024 10:51 AM [facility] Hematocrit 37.3(L) 42.0 - 54.0 % LAB HEMETOLOGY METHOD 07/02/2024 10:51 AM [facility] MCV 83.6 79.0 - 98.0 FL LAB HEMETOLOGY METHOD 07/02/2024 10:51 AM [facility] MCH 25.8(L) 27.0 - 32.0 pcg LAB HEMETOLOGY METHOD 07/02/2024 10:51 AM [facility] MCHC 30.8(L) 32.0 - 37.0 g/dL LAB HEMETOLOGY METHOD 07/02/2024 10:51 AM [facility] RDW 15.3(H) 11.0 - 15.0 % LAB HEMETOLOGY METHOD 07/02/2024 10:51 AM [facility] Platelets 322 130 - 400 K/mcL LAB HEMETOLOGY METHOD 07/02/2024 10:51 AM [facility] MPV 10.9 7.0 - 11.0 FL LAB HEMETOLOGY METHOD 07/02/2024 10:51 AM [facility] NRBC 0.0 <1.0 % LAB HEMETOLOGY METHOD 07/02/2024 10:51 AM [facility] NRBC Absolute 0.00 <0.10 K/mcL LAB HEMETOLOGY METHOD 07/02/2024 10:51 AM [facility] Blood Venous blood specimen / Unknown Venipuncture / Unknown 07/02/2024 7:17 AM EST 07/02/2024 9:17 AM EST Michelle Rucker MD LAB BLOOD ORDERABLES Fin al Result [facility] ([facility]) [facility] [address] [place] [address], documented in this encounter Visit Diagnoses Diagnosis Heart failure, unspecified (CMS/HCC V24, CMS/[facility] V28) Heart failure, unspecified Vitamin D deficiency, unspecified Hyperlipidemia, unspecified Anemia, unspecified Type 1 diabetes mellitus with diabetic neuropathy, unspecified (CMS/HCC V24, CMS/[facility] V28) 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 difficile Rule-Out 08/14/2024 08/13/20242024 11:06 AM EST MDRO (other) 12/15/2024 12/15/2024 documented as of this encounter Care Teams Tar Heater Operator Relationship Specialty Start Date End Date Michelle Rucker MD [address] [place] [phone] PCP - General Family Medicine 05/06/24 documented as of this encounter
--- OUTSIDE RECORDS SUMMARY | 2025-03-15 12:04 | XMS_ITS | Encounter Summary ---
Author Organization [facility] Address [address] [place] [address] Care Team Providers Care Director River Restoration Name Role Phone Michelle Rucker MD Primary Care Provider + Encounter Details Date Type Department Care Team (Late st Contact Info) Description 05/08/2024 Lab Requisition [facility] - Main Lab 299 [facility] [employer] [place] [address] Michelle Rucker MD [address] [phone] Kidney transplant status; Squamous cell carcinoma of [...] investigational or for research. Test performed at [facility], [address], [place] [address] Brittanie Horan MD, PhD - Tool Crib Supervisor Blood Venous blood specimen / Unknown Venipuncture / Unknown 05/11/2024 6:37 AM EST 05/11/2024 9:28 AM EST Michelle Rucker MD LAB BLOOD ORDERABLES Fin al Result [facility] [address] [place] [address] * (ABNORMAL) Comprehensive metabolic panel (05/11/2024 6:37 AM EST) Sodium 140 133 - 145 mmol/L LAB CHEMISTRY METHOD 05/11/2024 10:49 AM EST [facility] Potassium 4.5 3.5 - 5.5 mmol/L LAB CHEMISTRY METHOD 05/11/2024 10:49 AM EST [facility] Chloride 106 96 - 110 mmol/L LAB CHEMISTRY METHOD 05/11/2024 10:49 AM EST [facility] CO2 27 21 - 32 mmol/L LAB CHEMISTRY METHOD 05/11/2024 10:[address] [facility] Anion Gap 7 3 - 11 LAB CHEMISTRY METHOD 05/11/2024 10:[address] [facility] Glucose 113(H) 70 - 100 mg/dL LAB CHEMISTRY METHOD 05/11/2024 10:[address] [facility] BUN 32(H) 5 - 25 mg/dL LAB CHEMISTRY METHOD 05/11/2024 10:[address] [facility] Creatinine 2.00(H) 0.70 - 1.30 mg/dL LAB CHEMISTRY METHOD 05/11/2024 10:[address] [facility] eGFR 36(L) >=60 mL/min/1. 73m2 LAB CHEMISTRY METHOD 05/11/2024 10:[address] [facility] Comment:Calculation based on the Chronic Kidney Disease Epidemiology Collaboration (CKD-EPI) equation refit without adjustment for race. BUN/Creatinine Ratio 16.0 LAB CHEMISTRY METHOD 05/11/2024 10:[address] [facility] Calcium 10.0 8.5 - 10.5 mg/dL LAB CHEMISTRY METHOD 05/11/2024 10:[address] [facility] AST (SGOT) 18 10 - 42 unit/L LAB CHEMISTRY METHOD 05/11/2024 10:[address] [facility] ALT (SGPT) 14 10 - 60 unit/L LAB CHEMISTRY METHOD 05/11/2024 10:[address] [facility] Alkaline Phosphatase 56 42 - 121 unit/L LAB CHEMISTRY METHOD 05/11/2024 10:[address] [facility] Total Protein 6.9 6.0 - 8.0 g/dL LAB CHEMISTRY METHOD 05/11/2024 10:[address] [facility] Albumin 2.9(L) 3.2 - 5.0 g/dL LAB CHEMISTRY METHOD 05/11/2024 10:[address] [facility] Total Bilirubin 0.3 0.0 - 1.4 mg/dL LAB CHEMISTRY METHOD 05/11/2024 10:[address] [facility] Blood Venous blood specimen / Unknown Venipuncture / Unknown 05/11/2024 6:37 AM EST 05/11/2024 9:28 AM EST us Michelle Rucker MD LAB BLOOD ORDERABLES Fin al Result [facility] ([facility]) [facility] [address] [place] [address], documented in this encounter Visit Diagnoses Diagnosis Kidney transplant status 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 difficile Rule-Out 08/14/2024 08/13/20242024 11:06 AM EST MDRO (other) 12/15/2024 12/15/2024 documented as of this encounter Care Teams Director River Restoration Relationship Specialty Start Date End Date Michelle Rucker MD [address] [place] [phone] PCP - General Family Medicine 05/06/24 documented as of this encounter
--- OUTSIDE RECORDS SUMMARY | 2025-03-15 12:04 | XMS_ITS | Encounter Summary ---
Author Organization [facility] Address [address] [place] [address] Care Team Providers Care Mold Insert Changer Name Role Phone Michelle Rucker MD Primary Care Provider + Encounter Details Date Type Department Care Team (Late st Contact Info) Description 06/03/2024 Lab Requisition [facility] - Main Lab 299 [place] [address] Michelle Rucker MD [address] [phone] Local infection of the skin and subcutaneous [...] Comprehensive metabolic panel (06/03/2024 5:20 AM EST) [facility] Sodium 139 133 - 145 mmol/L LAB CHEMISTRY METHOD 06/03/2024 11:50 AM EST [facility] Potassium 4.2 3.5 - 5.5 mmol/L [...] LAB CHEMISTRY METHOD 06/03/2024 11:50 AM EST [facility] Albumin 3.1(L) 3.2 - 5.0 [...] Result [facility] [address] [place] [address], [place] [phone] * (ABNORMAL) Complete blood count (06/03/2024 5:20 [...] LAB HEMETOLOGY METHOD 06/03/2024 11:05 AM EST [facility] RDW 13.9 11.0 - 15.0 % LAB HEMETOLOGY METHOD 06/03/2024 11:05 AM [facility] Platelets 157 130 - 400 K/mcL LAB HEMETOLOGY METHOD 06/03/2024 11:05 AM [facility] MPV 11.5(H) 7.0 - 11.0 FL LAB HEMETOLOGY METHOD 06/03/2024 11:05 AM EST [facility] NRBC 0.0 [...] Result [facility] [address] [place] [address], documented in this encounter Visit Diagnoses Diagnosis Local infection of the skin and subcutaneous tissue, unspecified documented in this encounter Additional Health Concerns Infection Onset Date Last Indicated Resolved Time C. difficile Rule-Out 08/14/2024 08/13/20242024 11:06 AM EST MDRO (other) 12/15/2024 12/15/2024 documented as of this encounter Care Teams Mold Insert Changer Relationship Specialty Start Date End Date Michelle Rucker MD [address] [phone] PCP - General Family Medicine 05/06/24 documented as of this encounter
--- OUTSIDE RECORDS SUMMARY | 2025-03-15 12:04 | XMS_ITS | Encounter Summary ---
Author Organization [facility] Address [address] [place] [phone] Care Team Providers Care Jack Winder Name Role Phone Michelle Rucker MD Primary Care Provider + Encounter Details Date Type Department Care Team (Late st Contact Info) Description 05/07/2024 Lab Requisition [facility] - Main Lab [address] [place] [address] Michelle Rucker MD [address] [phone] Urinary tract infection, site not specified Social [...] reflex microscopic (05/06/2024 11:00 AM EST) Specific [place] Urine 1.015 1.003 - 1.030 LAB URINALYSIS - AUTOMATED METHOD 05/07/2024 11:00 AM [facility] pH, Urine 5.5 5.0 - 8.0 pH LAB URINALYSIS - AUTOMATED METHOD 05/07/2024 11:00 AM [facility] Leukocytes, Urine Trace(A) Negative LAB URINALYSIS - AUTOMATED METHOD 05/07/2024 11:00 AM [facility] Nitrite, Urine Negative Negative LAB URINALYSIS - AUTOMATED METHOD 05/07/2024 11:00 AM [facility] Protein, Urine 100(A) <=Trace mg/dL LAB URINALYSIS - AUTOMATED METHOD 05/07/2024 11:00 AM [facility] Glucose, Urine 500(A) Negative mg/dL LAB URINALYSIS - AUTOMATED METHOD 05/07/2024 11:00 AM [facility] Ketones, Urine Trace(A) Negative mg/dL LAB URINALYSIS - AUTOMATED METHOD 05/07/2024 11:00 AM [facility] Urobilinogen , Urine 0.2 0.2 - 1.0 mg/dL LAB URINALYSIS - AUTOMATED METHOD 05/07/2024 11:00 AM [facility] Bilirubin, Urine Negative Negative LAB URINALYSIS - AUTOMATED METHOD 05/07/2024 11:00 AM [facility] Blood, Urine Small(A) Negative LAB URINALYSIS - AUTOMATED METHOD 05/07/2024 11:00 AM [facility] RBC, Urine 2.6 0 - 4 /HPF LAB URINALYSIS - AUTOMATED METHOD 05/07/2024 11:00 AM [facility] WBC, Urine 20.3(H) 0 - 4 /HPF LAB URINALYSIS - AUTOMATED METHOD 05/07/2024 11:00 AM [facility] Squamous Epithelial, Urine 55 0 - 60 /LPF LAB URINALYSIS - AUTOMATED METHOD 05/07/2024 11:00 AM [facility] Bacteria, Urine Negative Negative /HPF LAB URINALYSIS - AUTOMATED METHOD 05/07/2024 11:00 AM EST [facility] Hyaline Casts, Urine 1.2 0 - 3 /LPF LAB URINALYSIS - AUTOMATED METHOD 05/07/2024 11:00 AM EST [facility] Yeast, Urine Present(A) None /HPF LAB URINALYSIS - AUTOMATED METHOD 05/07/2024 11:00 AM EST [facility] Urine Urine specimen obtained by clean catch procedure / Unknown 05/06/2024 11:00 AM EST 05/07/2024 9:55 AM EST us Michelle Rucker MD LAB URINE ORDERABLES Fin al Result [facility] [address] [place] [address], * (ABNORMAL) Culture urine (05/06/2024 11:00 AM EST) Culture, Urine 10,000-49,000 CFU/mL Klebsiella pneumoniae ssp pneumoniae(A) YENNIFER 05/09/2024 11:26 AM EST [facility] Comment: This is an edited result. Previous organism was Gram negative bacilli on 05/08/2024 at 0819 EST. Urine Urine specimen obtained by clean catch procedure / Unknown 05/06/2024 11:00 AM EST 05/07/2024 9:55 AM EST Narrative [facility] - 05/09/2024 11:26 AM EST [...] Michelle Rucker MD LAB MICROBIOLOGY - [facility] ORDERABLES Final Result [facility]) [facility] [address] [place] [address], documented in this encounter Visit Diagnoses Diagnosis Urinary tract infection, site not specified documented in this encounter Additional Health Concerns Infection Onset Date Last Indicated Resolved Time C. difficile Rule-Out 08/14/2024 08/13/20242024 11:06 AM EST MDRO (other) 12/15/2024 12/15/2024 documented as of this encounter Care Teams Jack Winder Relationship Specialty Start Date End Date Michelle Rucker MD [address] [place] [phone] PCP - General Family Medicine 05/06/24 documented as of this encounter
--- OUTSIDE RECORDS SUMMARY | 2025-03-15 12:04 | XMS_ITS | Encounter Summary ---
Author Organization [facility] Address [address] [place] [phone] Care Team Providers Care Technical Sales Associate Name Role Phone Michelle Rucker MD Primary Care Provider + Encounter Details Date Type Department Care Team (Late st Contact Info) Description 06/26/2024 Lab Requisition [facility] - Main Lab 299 [facility] [place] [address] Michelle Rucker MD [address] [phone] Hyperlipidemia, unspecified; Heart failure, unspecified (CMS/HCC V24, [...] documented as of this encounter Care Teams Technical Sales Associate Relationship Specialty Start Date End Date Michelle Rucker MD [address] [phone] PCP - General Family Medicine 05/06/24 documented as of this encounter
--- OUTSIDE RECORDS SUMMARY | 2025-03-15 12:04 | XMS_ITS | Encounter Summary ---
Author Organization [facility] Address [address] [place] [address] Care Team Providers Care Crime Lab Technician Name Role Phone Michelle Rucker MD Primary Care Provider + Encounter Details Date Type Department Care Team (Late st Contact Info) Description 05/18/2024 Lab Requisition [facility] - Main Lab 299 [facility] [email or web address] [address] Michelle Rucker MD [address] [phone] Kidney transplant status; Squamous cell carcinoma of [...] developed and the performance characteristics determined by [facility]. This confirmation testing has not been cleared or approved by the FDA. The laboratory is regulated under CLIA as qualified to perform high-complexity testing. This test is used for patient testing purposes. It should not be regarded as investigational or for research. Test performed at [facility], [address], [place] [address] Brittanie Horan MD, PhD - [employer] Pointer Blood Venous blood specimen / Unknown Venipuncture / Unknown 05/19/2024 5:08 AM EST 05/19/2024 9:54 AM EST Michelle Rucker MD LAB BLOOD ORDERABLES Fin al Result [facility] [address] [place] [address] * (ABNORMAL) Comprehensive metabolic panel (05/19/2024 5:08 AM EST) Sodium 141 133 - 145 mmol/L LAB CHEMISTRY METHOD 05/19/2024 10:42 AM EST [facility] Potassium 4.9 3.5 - 5.5 mmol/L LAB CHEMISTRY METHOD 05/19/2024 10:42 AM EST [facility] Chloride 109 96 - 110 mmol/L LAB CHEMISTRY METHOD 05/19/2024 10:42 AM EST [facility] CO2 26 21 - 32 mmol/L LAB CHEMISTRY METHOD 05/19/2024 10:42 AM [facility] Anion Gap 6 3 - 11 LAB CHEMISTRY METHOD 05/19/2024 10:42 AM [facility] Glucose 115(H) 70 - 100 mg/dL LAB CHEMISTRY METHOD 05/19/2024 10:42 AM [facility] BUN 28(H) 5 - 25 mg/dL LAB CHEMISTRY METHOD 05/19/2024 10:42 AM [facility] Creatinine 2.12(H) 0.70 - 1.30 mg/dL LAB CHEMISTRY METHOD 05/19/2024 10:42 AM [facility] eGFR 34(L) >=60 mL/min/1. 73m2 LAB CHEMISTRY METHOD 05/19/2024 10:42 AM [facility] Comment:Calculation based on the Chronic Kidney Disease Epidemiology Collaboration (CKD-EPI) equation refit without adjustment for race. BUN/Creatinine Ratio 13.2 LAB CHEMISTRY METHOD 05/19/2024 10:42 AM [facility] Calcium 9.6 8.5 - 10.5 mg/dL LAB CHEMISTRY METHOD 05/19/2024 10:42 AM [facility] AST (SGOT) 25 10 - 42 unit/L LAB CHEMISTRY METHOD 05/19/2024 10:42 AM [facility] ALT (SGPT) 14 10 - 60 unit/L LAB CHEMISTRY METHOD 05/19/2024 10:42 AM [facility] Alkaline Phosphatase 58 42 - 121 unit/L LAB CHEMISTRY METHOD 05/19/2024 10:42 AM [facility] Total Protein 6.8 6.0 - 8.0 g/dL LAB CHEMISTRY METHOD 05/19/2024 10:42 AM [facility] Albumin 3.1(L) 3.2 - 5.0 g/dL LAB CHEMISTRY METHOD 05/19/2024 10:42 AM [facility] Total Bilirubin 0.4 0.0 - 1.4 mg/dL LAB CHEMISTRY METHOD 05/19/2024 10:42 AM [facility] Blood Venous blood specimen / Unknown Venipuncture / Unknown 05/19/2024 5:08 AM EST 05/19/2024 9:54 AM EST us Michelle Rucker MD LAB BLOOD ORDERABLES Fin al Result [facility] ([facility]) [facility] [address] [place] [address], documented in this encounter Visit Diagnoses Diagnosis Kidney transplant status 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 difficile Rule-Out 08/14/2024 08/13/20242024 11:06 AM EST MDRO (other) 12/15/2024 12/15/2024 documented as of this encounter Care Teams Crime Lab Technician Relationship Specialty Start Date End Date Michelle Rucker MD [address] [place] [phone] PCP - General Family Medicine 05/06/24 documented as of this encounter
--- OUTSIDE RECORDS SUMMARY | 2025-03-15 12:04 | XMS_ITS | Encounter Summary ---
Author Organization [facility] Address [address] [place] [phone] Care Team Providers Care Mending Carrier Name Role Phone Michelle Rucker MD Primary Care Provider + Encounter Details Date Type Department Care Team (Late st Contact Info) Description 05/28/2024 Lab Requisition [facility] - Main Lab 299 [facility] [place] [address] Michelle Rucker MD [address] [address] Anemia, unspecified; Unspecified malignant neoplasm of [...] - 20.0 ng/mL 05/30/2024 12:46 PM EST [facility] Comment: Additional Information: Toxic Level [...] performance characteristics determined by [facility]. This confirmation testing has not been cleared or approved by the FDA. The laboratory is regulated under CLIA as qualified to perform high-complexity testing. This test is used for patient testing purposes. It should not be regarded as investigational or for research. Test performed at [facility], [address], [place], [place] [id number] Brittanie Horan MD, PhD - Analysis Consultant Blood Venous blood specimen / Unknown Venipuncture / Unknown 05/28/2024 7:04 AM EST 05/28/2024 9:00 AM EST Michelle Rucker MD LAB BLOOD ORDERABLES Fin al Result [facility] [address] [place] [address] * (ABNORMAL) Comprehensive metabolic panel (05/28/2024 7:04 AM EST) Sodium 140 133 - 145 mmol/L LAB CHEMISTRY METHOD 05/28/2024 10:39 AM EST [facility] Potassium 4.5 3.5 - 5.5 mmol/L LAB CHEMISTRY METHOD 05/28/2024 10:39 AM [facility] Chloride 110 96 - 110 mmol/L LAB CHEMISTRY METHOD 05/28/2024 10:39 AM [facility] CO2 22 21 - 32 mmol/L LAB CHEMISTRY METHOD 05/28/2024 10:39 AM [facility] Anion Gap 8 3 - 11 LAB CHEMISTRY METHOD 05/28/2024 10:39 AM [facility] Glucose 104(H) 70 - 100 mg/dL LAB CHEMISTRY METHOD 05/28/2024 10:39 AM [facility] BUN 31(H) 5 - 25 mg/dL LAB CHEMISTRY METHOD 05/28/2024 10:39 AM [facility] Creatinine 2.24(H) 0.70 - 1.30 mg/dL LAB CHEMISTRY METHOD 05/28/2024 10:39 AM [facility] eGFR 32(L) >=60 mL/min/1. 73m2 LAB CHEMISTRY METHOD 05/28/2024 10:39 AM [facility] Comment:Calculation based on the Chronic Kidney Disease Epidemiology Collaboration (CKD-EPI) equation refit without adjustment for race. BUN/Creatinine Ratio 13.8 LAB CHEMISTRY METHOD 05/28/2024 10:39 AM [facility] Calcium 9.8 8.5 - 10.5 mg/dL LAB CHEMISTRY METHOD 05/28/2024 10:39 AM [facility] AST (SGOT) 21 10 - 42 unit/L LAB CHEMISTRY METHOD 05/28/2024 10:39 AM [facility] ALT (SGPT) 18 10 - 60 unit/L LAB CHEMISTRY METHOD 05/28/2024 10:39 AM [facility] Alkaline Phosphatase 56 42 - 121 unit/L LAB CHEMISTRY METHOD 05/28/2024 10:39 AM [facility] Total Protein 6.6 6.0 - 8.0 g/dL LAB CHEMISTRY METHOD 05/28/2024 10:39 AM [facility] Albumin 3.1(L) 3.2 - 5.0 g/dL LAB CHEMISTRY METHOD 05/28/2024 10:39 AM [facility] Total Bilirubin 0.4 0.0 - 1.4 mg/dL LAB CHEMISTRY METHOD 05/28/2024 10:39 AM [facility] Blood Venous blood specimen / Unknown Venipuncture / Unknown 05/28/2024 7:04 AM EST 05/28/2024 9:00 AM EST us Michelle Rucker MD LAB BLOOD ORDERABLES Fin al Result [facility] [address] [place] [address], [place] [phone] * (ABNORMAL) Complete blood count (05/28/2024 7:04 AM EST) WBC 6.9 4.8 - 10.8 K/mcL LAB HEMETOLOGY METHOD 05/28/2024 10:12 AM [facility] RBC 4.60 4.50 - 5.50 M/mcL LAB HEMETOLOGY METHOD 05/28/2024 10:12 AM [facility] Hemoglobin 11.9(L) 13.5 - 17.5 g/dL LAB HEMETOLOGY METHOD 05/28/2024 10:12 AM [facility] Hematocrit 37.5(L) 42.0 - 54.0 % LAB HEMETOLOGY METHOD 05/28/2024 10:12 AM [facility] MCV 82.4 79.0 - 98.0 FL LAB HEMETOLOGY METHOD 05/28/2024 10:12 AM [facility] MCH 26.2(L) 27.0 - 32.0 pcg LAB HEMETOLOGY METHOD 05/28/2024 10:12 AM [facility] MCHC 31.7(L) 32.0 - 37.0 g/dL LAB HEMETOLOGY METHOD 05/28/2024 10:12 AM EST [facility] RDW 13.2 11.0 - 15.0 % LAB HEMETOLOGY METHOD 05/28/2024 10:12 AM [facility] Platelets 236 130 - 400 K/mcL LAB HEMETOLOGY METHOD 05/28/2024 10:12 AM EST [facility] MPV 10.7 7.0 - 11.0 FL LAB HEMETOLOGY METHOD 05/28/2024 10:12 AM EST [facility] NRBC 0.0 <1.0 % LAB HEMETOLOGY METHOD 05/28/2024 10:12 AM [facility] NRBC Absolute 0.00 <0.10 K/mcL LAB HEMETOLOGY METHOD 05/28/2024 10:12 AM [facility] Blood Venous blood specimen / Unknown Venipuncture / Unknown 05/28/2024 7:04 AM EST 05/28/2024 9:00 AM EST Michelle Rucker MD LAB BLOOD ORDERABLES Fin al Result [facility] [address] [place] [address], documented in this encounter Visit Diagnoses Diagnosis [...] documented as of this encounter Care Teams Mending Carrier Relationship Specialty Start Date End Date Michelle Rucker MD [address] [place] [phone] PCP - General Family Medicine 05/06/24 documented as of this encounter
--- OUTSIDE RECORDS SUMMARY | 2025-03-15 12:04 | XMS_ITS | Encounter Summary ---
Author Organization [facility] Address [address] [place] [phone] Care Team Providers Care Cake Wringer Name Role Phone Michelle Rucker MD Primary Care Provider + Encounter Details Date Type Department Care Team (Late st Contact Info) Description 06/08/2024 Lab Requisition [facility] - Main Lab 299 [facility] [place] [address] Michelle Rucker MD [address] [phone] Heart failure, unspecified (CMS/HCC V24, CMS/HCC V28); [...] LAB CHEMISTRY METHOD 06/08/2024 2:45 PM EST [facility] Mean Bld Glu Estim. 169 mg/dL LAB CHEMISTRY METHOD 06/08/2024 2:45 PM EST [facility] Blood Venous blood specimen / Unknown Venipuncture / Unknown 06/08/2024 6:35 AM EST 06/08/2024 12:12 PM EST us Michelle Rucker MD LAB BLOOD ORDERABLES Fin al Result [facility] [address] [place] [address], [place] [phone] * Vitamin B12 (06/08/2024 6:35 AM EST) Pathologist [facility] Vitamin B-12 618 250 - 900 pcg/mL LAB CHEMISTRY METHOD 06/08/2024 6:05 PM EST [facility] Blood Venous blood specimen / Unknown Venipuncture / Unknown 06/08/2024 6:35 AM EST 06/08/2024 12:12 PM EST Michelle Rucker MD LAB BLOOD ORDERABLES Fin al Result [facility] [address] [place] [address], [place] [phone] * (ABNORMAL) Folate (06/08/2024 6:35 AM EST) [facility] Folate 2.1(L) 2.8 - 17.0 ng/ml LAB CHEMISTRY METHOD 06/08/2024 6:05 PM EST [facility] Blood Venous blood specimen / Unknown Venipuncture / Unknown 06/08/2024 6:35 AM EST 06/08/2024 12:12 PM EST Michelle Rucker MD LAB BLOOD ORDERABLES Fin al Result [facility] [address] [place] [address], [place] [phone] * (ABNORMAL) Magnesium (06/08/2024 6:35 AM EST) [facility] Magnesium 1.7(L) 1.9 - 2.6 mg/dL LAB CHEMISTRY METHOD 06/08/2024 5:40 PM EST [facility] Blood Venous blood specimen / Unknown Venipuncture / Unknown 06/08/2024 6:35 AM EST 06/08/2024 12:12 PM EST Michelle Rucker MD LAB BLOOD ORDERABLES Fin al Result Performing Organization Address [facility]/ZIP Co de Phone Number [facility] [address] [place] [address], [place] [phone] * (ABNORMAL) Thyroid stimulating hormone (06/08/2024 6:35 AM EST) TSH 4.31(H) 0.40 - 4.00 mcIU/mL LAB CHEMISTRY METHOD 06/08/2024 5:39 PM [facility] Blood Venous blood specimen / Unknown Venipuncture / Unknown 06/08/2024 6:35 AM EST 06/08/2024 12:12 PM EST Michelle Rucker MD LAB BLOOD ORDERABLES Fin al Result Performing Organization Address [facility]/ZIP Co de Phone Number [facility] [address] [place] [address], [place] [phone] * (ABNORMAL) Comprehensive metabolic panel (06/08/2024 6:35 AM EST) Pathologist [facility] Sodium 139 133 - 145 mmol/L LAB CHEMISTRY METHOD 06/08/2024 6:05 PM [facility] Potassium 3.9 3.5 - 5.5 mmol/L LAB CHEMISTRY METHOD 06/08/2024 6:05 PM [facility] Chloride 106 96 - 110 mmol/L LAB CHEMISTRY METHOD 06/08/2024 6:05 PM [facility] CO2 24 21 - 32 mmol/L LAB CHEMISTRY METHOD 06/08/2024 6:05 PM [facility] Anion Gap 9 3 - 11 LAB CHEMISTRY METHOD 06/08/2024 6:05 PM [facility] Glucose 159(H) 70 - 100 mg/dL LAB CHEMISTRY METHOD 06/08/2024 6:05 PM [facility] BUN 27(H) 5 - 25 mg/dL LAB CHEMISTRY METHOD 06/08/2024 6:05 PM [facility] Creatinine 1.91(H) 0.70 - 1.30 mg/dL LAB CHEMISTRY METHOD 06/08/2024 6:05 PM [facility] eGFR 38(L) >=60 mL/min/1. 73m2 LAB CHEMISTRY METHOD 06/08/2024 6:05 PM [facility] Comment:Calculation based on the Chronic Kidney Disease Epidemiology Collaboration (CKD-EPI) equation refit without adjustment for race. BUN/Creatinine Ratio 14.1 LAB CHEMISTRY METHOD 06/08/2024 6:05 PM [facility] Calcium 9.3 8.5 - 10.5 mg/dL LAB CHEMISTRY METHOD 06/08/2024 6:05 PM [facility] AST (SGOT) 13 10 - 42 unit/L LAB CHEMISTRY METHOD 06/08/2024 6:05 PM [facility] ALT (SGPT) 12 10 - 60 unit/L LAB CHEMISTRY METHOD 06/08/2024 6:05 PM [facility] Alkaline Phosphatase 56 42 - 121 unit/L LAB CHEMISTRY METHOD 06/08/2024 6:05 PM [facility] Total Protein 6.3 6.0 - 8.0 g/dL LAB CHEMISTRY METHOD 06/08/2024 6:05 PM [facility] Albumin 2.9(L) 3.2 - 5.0 g/dL LAB CHEMISTRY METHOD 06/08/2024 6:05 PM [facility] Total Bilirubin 0.5 0.0 - 1.4 mg/dL LAB CHEMISTRY METHOD 06/08/2024 6:05 PM [facility] Blood Venous blood specimen / Unknown Venipuncture / Unknown 06/08/2024 6:35 AM EST 06/08/2024 12:12 PM EST Michelle Rucker MD LAB BLOOD ORDERABLES Fin al Result [facility] [address] [place] [address], * (ABNORMAL) Complete blood count (06/08/2024 6:35 AM EST) WBC 4.2(L) 4.8 - 10.8 K/mcL LAB HEMETOLOGY METHOD 06/08/2024 1:01 PM [facility] RBC 4.50 4.50 - 5.50 M/mcL LAB HEMETOLOGY METHOD 06/08/2024 1:01 PM [facility] Hemoglobin 11.6(L) 13.5 - 17.5 g/dL LAB HEMETOLOGY METHOD 06/08/2024 1:01 PM [facility] Hematocrit 37.4(L) 42.0 - 54.0 % LAB HEMETOLOGY METHOD 06/08/2024 1:01 PM [facility] MCV 82.6 79.0 - 98.0 FL LAB HEMETOLOGY METHOD 06/08/2024 1:01 PM [facility] MCH 25.6(L) 27.0 - 32.0 pcg LAB HEMETOLOGY METHOD 06/08/2024 1:01 PM [facility] MCHC 31.0(L) 32.0 - 37.0 g/dL LAB HEMETOLOGY METHOD 06/08/2024 1:01 PM [facility] RDW 13.7 11.0 - 15.0 % LAB HEMETOLOGY METHOD 06/08/2024 1:01 PM [facility] Platelets 152 130 - 400 K/mcL LAB HEMETOLOGY METHOD 06/08/2024 1:01 PM [facility] MPV 11.4(H) 7.0 - 11.0 FL LAB HEMETOLOGY METHOD 06/08/2024 1:01 PM [facility] NRBC 0.0 <1.0 % LAB HEMETOLOGY METHOD 06/08/2024 1:01 PM EST [facility] NRBC Absolute 0.00 <0.10 K/mcL LAB HEMETOLOGY METHOD 06/08/2024 1:01 PM EST [facility] Blood Venous blood specimen / Unknown Venipuncture / Unknown 06/08/2024 6:35 AM EST 06/08/2024 12:12 PM EST us Michelle Rucker MD LAB BLOOD ORDERABLES Fin al Result [facility] [address] [place] [address], documented in this encounter Visit Diagnoses Diagnosis [...] documented as of this encounter Care Teams Cake Wringer Relationship Specialty Start Date End Date Michelle Rucker MD [address] [place] [phone] PCP - General Family Medicine 05/06/24 documented as of this encounter
--- OUTSIDE RECORDS SUMMARY | 2025-03-15 12:04 | XMS_ITS | Encounter Summary ---
Author Organization [facility] Address [address] [place] [phone] Care Team Providers Care Automobile Body Customizer Name Role Phone Michelle Rucker MD Primary Care Provider + Encounter Details Date Type Department Care Team (Late st Contact Info) Description 06/13/2024 Lab Requisition [facility] - Main Lab 299 [facility] [place] [address] Michelle Rucker MD [address] [phone] Hyperlipidemia, unspecified; Heart failure, unspecified (CMS/HCC V24, [...] mmol/L LAB CHEMISTRY METHOD 06/15/2024 1:26 PM [facility] Potassium 4.6 3.5 - 5.5 mmol/L LAB CHEMISTRY METHOD 06/15/2024 1:26 PM [facility] Chloride 106 96 - 110 mmol/L LAB CHEMISTRY METHOD 06/15/2024 1:26 PM [facility] CO2 24 21 - 32 mmol/L LAB CHEMISTRY METHOD 06/15/2024 1:26 PM [facility] Anion Gap 6 3 - 11 LAB CHEMISTRY METHOD 06/15/2024 1:26 PM [facility] Glucose 304(H) 70 - 100 mg/dL LAB CHEMISTRY METHOD 06/15/2024 1:26 PM [facility] BUN 32(H) 5 - 25 mg/dL LAB CHEMISTRY METHOD 06/15/2024 1:26 PM [facility] Creatinine 1.82(H) 0.70 - 1.30 mg/dL LAB CHEMISTRY METHOD 06/15/2024 1:26 PM [facility] eGFR 40(L) >=60 mL/min/1. 73m2 LAB CHEMISTRY METHOD 06/15/2024 1:26 PM [facility] Comment:Calculation based on the Chronic Kidney Disease Epidemiology Collaboration (CKD-EPI) equation refit without adjustment for race. BUN/Creatinine Ratio 17.6 LAB CHEMISTRY METHOD 06/15/2024 1:26 PM [facility] Calcium 10.1 8.5 - 10.5 mg/dL LAB CHEMISTRY METHOD 06/15/2024 1:26 PM [facility] Blood Venous blood specimen / Unknown Venipuncture / Unknown 06/15/2024 6:08 AM EST 06/15/2024 11:15 AM EST Michelle Rucker MD LAB BLOOD ORDERABLES Fin al Result [facility] [address] [place] [address], * (ABNORMAL) Complete blood count (06/15/2024 6:08 AM EST) WBC 7.4 4.8 - 10.8 K/mcL LAB HEMETOLOGY METHOD 06/15/2024 1:05 PM [facility] RBC 5.20 4.50 - 5.50 M/mcL LAB HEMETOLOGY METHOD 06/15/2024 1:05 PM [facility] Hemoglobin 13.1(L) 13.5 - 17.5 g/dL LAB HEMETOLOGY METHOD 06/15/2024 1:05 PM [facility] Hematocrit 42.1 42.0 - 54.0 % LAB HEMETOLOGY METHOD 06/15/2024 1:05 PM [facility] MCV 81.6 79.0 - 98.0 FL LAB HEMETOLOGY METHOD 06/15/2024 1:05 PM [facility] MCH 25.4(L) 27.0 - 32.0 pcg LAB HEMETOLOGY METHOD 06/15/2024 1:05 PM [facility] MCHC 31.1(L) 32.0 - 37.0 g/dL LAB HEMETOLOGY METHOD 06/15/2024 1:05 PM [facility] RDW 14.0 11.0 - 15.0 % LAB HEMETOLOGY METHOD 06/15/2024 1:05 PM [facility] Platelets 219 130 - 400 K/mcL LAB HEMETOLOGY METHOD 06/15/2024 1:05 PM [facility] MPV 11.4(H) 7.0 - 11.0 FL LAB HEMETOLOGY METHOD 06/15/2024 1:05 PM EST [facility] NRBC 0.0 <1.0 % LAB HEMETOLOGY METHOD 06/15/2024 1:05 PM EST [facility] NRBC Absolute 0.00 <0.10 K/mcL LAB HEMETOLOGY METHOD 06/15/2024 1:05 PM EST [facility] Blood Venous blood specimen / Unknown Venipuncture / Unknown 06/15/2024 6:08 AM EST 06/15/2024 11:15 AM EST us Michelle Rucker MD LAB BLOOD ORDERABLES Fin al Result [facility] [address] [place] [address], documented in this encounter Visit Diagnoses Diagnosis [...] documented as of this encounter Care Teams Automobile Body Customizer Relationship Specialty Start Date End Date Michelle Rucker MD [address] [place] [phone] PCP - General Family Medicine 05/06/24 documented as of this encounter
--- OUTSIDE RECORDS SUMMARY | 2025-03-15 12:04 | XMS_ITS | Encounter Summary ---
Author Organization [facility] Address [address] [place] [address] Care Team Providers Care Hair Spinner Name Role Phone Michelle Rucker MD Primary Care Provider + Encounter Details Date Type Department Care Team (Late st Contact Info) Description 05/08/2024 Lab Requisition [facility] [address] [place] [address] Michelle Rucker MD [address] [phone] Kidney transplant status; Squamous cell carcinoma of [...] LAB CHEMISTRY METHOD 05/08/2024 9:21 AM EST [facility] Potassium 4.4 3.5 - 5.5 mmol/L LAB CHEMISTRY METHOD 05/08/2024 9:21 AM [facility] Chloride 105 96 - 110 mmol/L LAB CHEMISTRY METHOD 05/08/2024 9:21 AM [facility] CO2 23 21 - 32 mmol/L LAB CHEMISTRY METHOD 05/08/2024 9:21 AM [facility] Anion Gap 8 3 - 11 LAB CHEMISTRY METHOD 05/08/2024 9:21 AM [facility] Glucose 183(H) 70 - 100 mg/dL LAB CHEMISTRY METHOD 05/08/2024 9:21 AM [facility] BUN 27(H) 5 - 25 mg/dL LAB CHEMISTRY METHOD 05/08/2024 9:21 AM [facility] Creatinine 1.82(H) 0.70 - 1.30 mg/dL LAB CHEMISTRY METHOD 05/08/2024 9:21 AM [facility] eGFR 40(L) >=60 mL/min/1. 73m2 LAB CHEMISTRY METHOD 05/08/2024 9:21 AM [facility] Comment:Calculation based on the Chronic Kidney Disease Epidemiology Collaboration (CKD-EPI) equation refit without adjustment for race. BUN/Creatinine Ratio 14.8 LAB CHEMISTRY METHOD 05/08/2024 9:21 AM [facility] Calcium 9.6 8.5 - 10.5 mg/dL LAB CHEMISTRY METHOD 05/08/2024 9:21 AM [facility] AST (SGOT) 20 10 - 42 unit/L LAB CHEMISTRY METHOD 05/08/2024 9:21 AM [facility] ALT (SGPT) 10 10 - 60 unit/L LAB CHEMISTRY METHOD 05/08/2024 9:21 AM [facility] Alkaline Phosphatase 52 42 - 121 unit/L LAB CHEMISTRY METHOD 05/08/2024 9:21 AM [facility] Total Protein 6.4 6.0 - 8.0 g/dL LAB CHEMISTRY METHOD 05/08/2024 9:21 AM [facility] Albumin 2.7(L) 3.2 - 5.0 g/dL LAB CHEMISTRY METHOD 05/08/2024 9:21 AM [facility] Total Bilirubin 0.5 0.0 - 1.4 mg/dL LAB CHEMISTRY METHOD 05/08/2024 9:21 AM [facility] Blood Venous blood specimen / Unknown Venipuncture / Unknown 05/08/2024 6:16 AM EST 05/08/2024 8:37 AM EST us Michelle Rucker MD LAB BLOOD ORDERABLES Fin al Result [facility] [address] [place] [address], * (ABNORMAL) Complete blood count (05/08/2024 6:16 AM EST) Pathologist [facility] WBC 9.8 4.8 - 10.8 K/mcL LAB HEMETOLOGY METHOD 05/08/2024 8:53 AM [facility] RBC 4.00(L) 4.50 - 5.50 M/[facility] LAB HEMETOLOGY METHOD 05/08/2024 8:53 AM [facility] Hemoglobin 11.0(L) 13.5 - 17.5 g/dL LAB HEMETOLOGY METHOD 05/08/2024 8:53 AM [facility] Hematocrit 34.0(L) 42.0 - 54.0 % LAB HEMETOLOGY METHOD 05/08/2024 8:53 AM [facility] MCV 85.4 79.0 - 98.0 FL LAB HEMETOLOGY METHOD 05/08/2024 8:53 AM [facility] MCH 27.6 27.0 - 32.0 pcg LAB HEMETOLOGY METHOD 05/08/2024 8:53 AM EST [facility] MCHC 32.4 32.0 - 37.0 g/dL LAB HEMETOLOGY METHOD 05/08/2024 8:53 AM [facility] RDW 12.8 11.0 - 15.0 % LAB HEMETOLOGY METHOD 05/08/2024 8:53 AM [facility] Platelets 235 130 - 400 K/mcL LAB HEMETOLOGY METHOD 05/08/2024 8:53 AM [facility] MPV 10.8 7.0 - 11.0 FL LAB HEMETOLOGY METHOD 05/08/2024 8:53 AM [facility] NRBC 0.0 <1.0 % LAB HEMETOLOGY METHOD 05/08/2024 8:53 AM [facility] NRBC Absolute 0.00 <0.10 K/mcL LAB HEMETOLOGY METHOD 05/08/2024 8:53 AM [facility] Blood Venous blood specimen / Unknown Venipuncture / Unknown 05/08/2024 6:16 AM EST 05/08/2024 8:37 AM EST Michelle Rucker MD LAB BLOOD ORDERABLES Fin al Result Performing Organization Address City/State/[facility] Co de Phone Number [facility] [address] [place] [address], documented in this encounter Visit Diagnoses Diagnosis Kidney transplant status 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 difficile Rule-Out 08/14/2024 08/13/20242024 11:06 AM EST MDRO (other) 12/15/2024 12/15/2024 documented as of this encounter Care Teams Hair Spinner Relationship Specialty Start Date End Date Michelle Rucker MD [address] [place] [phone] PCP - General Family Medicine 05/06/24 documented as of this encounter
--- OUTSIDE RECORDS SUMMARY | 2025-03-15 12:04 | XMS_ITS | Encounter Summary ---
Author Organization [facility] Address [address] [place] [address] Care Team Providers Care Clothes Designer Name Role Phone Michelle Rucker MD Primary Care Provider + Encounter Details Date Type Department Care Team (Late st Contact Info) Description 07/03/2024 Lab Requisition [facility] - Main Lab 299 [facility] [place] [address] Michelle Rucker MD [address] [address] Encounter for therapeutic drug level [...] investigational or for research. Test performed at [facility], [address], [place] [address] Brittanie Horan MD, PhD - Extension Forester Blood Venous blood specimen / Unknown Venipuncture / Unknown 07/03/2024 5:42 AM EST 07/03/2024 9:25 AM EST Michelle Rucker MD LAB BLOOD ORDERABLES Fin al Result [facility] [address] [place] [address] documented in this encounter Visit Diagnoses Diagnosis Encounter for therapeutic drug level monitoring documented in this encounter Additional Health Concerns Infection Onset Date Last Indicated Resolved Time C. difficile Rule-Out 08/14/2024 08/13/20242024 11:06 AM EST MDRO (other) 12/15/2024 12/15/2024 documented as of this encounter Care Teams Clothes Designer Relationship Specialty Start Date End Date Michelle Rucker MD [address] [place] [address] PCP - General Family Medicine 05/06/24 documented as of this encounter
--- OUTSIDE RECORDS SUMMARY | 2025-03-15 12:04 | XMS_ITS | Encounter Summary ---
Author Organization [facility] [place], Address [address] [address] Phone Care Team Providers Care Wreath Inspector Name Role Phone Tennille Linton Sloane NATHAN Primary Care Provider + Reason for Visit * Reason Comments Med Refill Encounter Details Date Type Department Care Team (Late st Contact Info) Description 06/13/2020 Refill [facility] [address] [place] [address] Denise Isbell PA [address] [place] [address] [place] [phone] Social History Tobacco Use Types Packs/Day Years [...] Visit [facility] [place] [address] [place] [phone] Andrey Phan MD [address] [place] [phone] documented as of this encounter Visit Diagnoses Not on filedocumented in this encounter Care Teams Wreath Inspector Relationship Specialty Start Date End Date Tennille Linton NP [address] [place] [phone] PCP - General Nurse Practitioner 08/07/23 documented as of this encounter
--- OUTSIDE RECORDS SUMMARY | 2025-03-15 12:04 | XMS_ITS | Encounter Summary ---
Author Organization [facility], Address [address] [place] [address] Phone Care Team Providers Care Fats And Oils Loader Name Role Phone Ebony Lintonher Sloane NATHAN Primary Care Provider + Reason for Visit * Reason Comments Med Refill Encounter Details Date Type Department Care Team (Late st Contact Info) Description 05/12/2020 Refill [facility] [address] [place] [address] Denise Isbell PA [address] [place] [address] [place] [address] Social History Tobacco Use Types Packs/Day Years [...] Visit [facility] [address] [place] [phone] Andrey Phan MD [address] [facility] [place] [address] documented as of this encounter Visit Diagnoses Not on filedocumented in this encounter Care Teams Fats And Oils Loader Relationship Specialty Start Date End Date Tennille Linton NP [address] [place] [phone] PCP - General Nurse Practitioner 08/07/23 documented as of this encounter
--- OUTSIDE RECORDS SUMMARY | 2025-03-15 12:05 | XMS_ITS | Encounter Summary ---
Author Organization [facility] Address [address] [place] [phone] Care Team Providers Care Lead Nurse Name Role Phone Michelle Rucker MD Primary Care Provider + Encounter Details Date Type Department Care Team (Late st Contact Info) Description 08/06/2024 Lab Requisition [facility] - Main Lab [address] [facility] [place] [address] Michelle Rucker MD [address] [address] Vitamin D deficiency, unspecified; Malignant [...] Hemoglobin A1c (08/07/2024 6:48 AM EST) Pathologist [facility] Hemoglobin A1C 8.5(H) <6.5 % LAB CHEMISTRY METHOD 08/07/2024 11:[address] [facility] Mean Bld Glu Estim. 197 mg/dL LAB CHEMISTRY METHOD 08/07/2024 11:[address] [facility] Blood Venous blood specimen / Unknown Venipuncture / Unknown 08/07/2024 6:48 AM EST 08/07/2024 8:30 AM EST Michelle Rucker MD LAB BLOOD ORDERABLES Fin al Result Performing Organization Address [facility]/ZIP Co de Phone Number [facility] [address] [place] [address], * Vitamin D 25 hydroxy (08/07/2024 6:48 AM EST) [facility] Vit D, 25-Hydroxy 49.9 30.0 - 80.0 ng/mL LAB CHEMISTRY METHOD 08/07/2024 10:[address] [facility] Blood Venous blood specimen / Unknown Venipuncture / Unknown 08/07/2024 6:48 AM EST 08/07/2024 8:30 AM EST Michelle Rucker MD LAB BLOOD ORDERABLES Fin al Result Performing Organization Address City/[facility]/ZIP Co de Phone Number [facility] [address] [place] [address], * Vitamin B12 (08/07/2024 6:48 AM EST) [facility] Vitamin B-12 670 250 - 900 pcg/mL LAB CHEMISTRY METHOD 08/07/2024 10:[address] [facility] Blood Venous blood specimen / Unknown Venipuncture / Unknown 08/07/2024 6:48 AM EST 08/07/2024 8:30 AM EST Michelle Rucker MD LAB BLOOD ORDERABLES Fin al Result Performing Organization Address City/[facility]/ZIP Co de Phone Number [facility] [address] [place] [address], [place] [phone] * Folate (08/07/2024 6:48 AM EST) Folate 8.7 2.8 - 17.0 ng/ml LAB CHEMISTRY METHOD 08/07/2024 10:[address] [facility] Blood Venous blood specimen / Unknown Venipuncture / Unknown 08/07/2024 6:48 AM EST 08/07/2024 8:30 AM EST Michelle Rucker MD LAB BLOOD ORDERABLES Fin al Result Performing Organization Address City/[facility]/ZIP Co de Phone Number [facility] [address] [place] [address], [place] [phone] * Magnesium (08/07/2024 6:48 AM EST) Magnesium 2.0 1.9 - 2.6 mg/dL LAB CHEMISTRY METHOD 08/07/2024 10:[address] [facility] Blood Venous blood specimen / Unknown Venipuncture / Unknown 08/07/2024 6:48 AM EST 08/07/2024 8:30 AM EST Michelle Rucker MD LAB BLOOD ORDERABLES Fin al Result [facility] [address] [place] [address], [place] [phone] * (ABNORMAL) Comprehensive metabolic panel (08/07/2024 6:48 AM EST) Sodium 134 133 - 145 mmol/L LAB CHEMISTRY METHOD 08/07/2024 10:47 AM [facility] Potassium 4.7 3.5 - 5.5 mmol/L LAB CHEMISTRY METHOD 08/07/2024 10:47 AM [facility] Chloride 100 96 - 110 mmol/L LAB CHEMISTRY METHOD 08/07/2024 10:47 AM [facility] CO2 27 21 - 32 mmol/L LAB CHEMISTRY METHOD 08/07/2024 10:47 AM [facility] Anion Gap 7 3 - 11 LAB CHEMISTRY METHOD 08/07/2024 10:47 AM [facility] Glucose 185(H) 70 - 100 mg/dL LAB CHEMISTRY METHOD 08/07/2024 10:47 AM [facility] BUN 23 5 - 25 mg/dL LAB CHEMISTRY METHOD 08/07/2024 10:47 AM [facility] Creatinine 1.41(H) 0.70 - 1.30 mg/dL LAB CHEMISTRY METHOD 08/07/2024 10:47 AM [facility] eGFR 55(L) >=60 mL/min/1. 73m2 LAB CHEMISTRY METHOD 08/07/2024 10:47 AM [facility] Comment:Calculation based on the Chronic Kidney Disease Epidemiology Collaboration (CKD-EPI) equation refit without adjustment for race. BUN/Creatinine Ratio 16.3 LAB CHEMISTRY METHOD 08/07/2024 10:47 AM [facility] Calcium 9.3 8.5 - 10.5 mg/dL LAB CHEMISTRY METHOD 08/07/2024 10:47 AM [facility] AST (SGOT) 15 10 - 42 unit/L LAB CHEMISTRY METHOD 08/07/2024 10:47 AM [facility] ALT (SGPT) 13 10 - 60 unit/L LAB CHEMISTRY METHOD 08/07/2024 10:47 AM [facility] Alkaline Phosphatase 76 42 - 121 unit/L LAB CHEMISTRY METHOD 08/07/2024 10:47 AM [facility] Total Protein 6.6 6.0 - 8.0 g/dL LAB CHEMISTRY METHOD 08/07/2024 10:47 AM [facility] Albumin 2.1(L) 3.2 - 5.0 g/dL LAB CHEMISTRY METHOD 08/07/2024 10:47 AM [facility] Total Bilirubin 0.3 0.0 - 1.4 mg/dL LAB CHEMISTRY METHOD 08/07/2024 10:47 AM [facility] Blood Venous blood specimen / Unknown Venipuncture / Unknown 08/07/2024 6:48 AM EST 08/07/2024 8:30 AM EST Michelle Rucker MD LAB BLOOD ORDERABLES Fin al Result [facility] [address] [place] [address], * (ABNORMAL) Complete blood count (08/07/2024 6:48 AM EST) WBC 9.7 4.8 - 10.8 K/mcL LAB HEMETOLOGY METHOD 08/07/2024 9:54 AM [facility] RBC 3.80(L) 4.50 - 5.50 M/[facility] LAB HEMETOLOGY METHOD 08/07/2024 9:54 AM [facility] Hemoglobin 9.7(L) 13.5 - 17.5 g/dL LAB HEMETOLOGY METHOD 08/07/2024 9:54 AM [facility] Hematocrit 31.1(L) 42.0 - 54.0 % LAB HEMETOLOGY METHOD 08/07/2024 9:54 AM [facility] MCV 82.3 79.0 - 98.0 FL LAB HEMETOLOGY METHOD 08/07/2024 9:[address] [facility] MCH 25.7(L) 27.0 - 32.0 pcg LAB HEMETOLOGY METHOD 08/07/2024 9:54 AM [facility] MCHC 31.2(L) 32.0 - 37.0 g/dL LAB HEMETOLOGY METHOD 08/07/2024 9:[address] [facility] RDW 15.9(H) 11.0 - 15.0 % LAB HEMETOLOGY METHOD 08/07/2024 9:[address] [facility] Platelets 277 130 - 400 K/mcL LAB HEMETOLOGY METHOD 08/07/2024 9:54 AM [facility] MPV 10.8 7.0 - 11.0 FL LAB HEMETOLOGY METHOD 08/07/2024 9:[address] [facility] NRBC 0.0 <1.0 % LAB HEMETOLOGY METHOD 08/07/2024 9:54 AM [facility] NRBC Absolute 0.00 <0.10 K/mcL LAB HEMETOLOGY METHOD 08/07/2024 9:54 AM [facility] Blood Venous blood specimen / Unknown Venipuncture / Unknown 08/07/2024 6:48 AM EST 08/07/2024 8:30 AM EST us Michelle Rucker MD LAB BLOOD ORDERABLES Fin al Result 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 V24, [facility] V28) End stage renal disease documented in this encounter Additional Health Concerns Infection Onset Date Last Indicated Resolved Time C. difficile Rule-Out 08/14/2024 08/13/20242024 11:06 AM EST MDRO (other) 12/15/2024 12/15/2024 documented as of this encounter Care Teams Lead Nurse Relationship Specialty Start Date End Date Michelle Rucker MD [address] [place] [phone] PCP - General Family Medicine 05/06/24 documented as of this encounter
--- OUTSIDE RECORDS SUMMARY | 2025-03-15 12:05 | XMS_ITS | Encounter Summary ---
Author Organization [facility] Address [address] [place] [phone] Care Team Providers Care Roofer Metal Name Role Phone Michelle Rucker MD Primary Care Provider + Encounter Details Date Type Department Care Team (Late st Contact Info) Description 08/10/2024 Lab Requisition [facility] - Main Lab [address] [place] [address] Michelle Rucker MD [address] [id number] Type 1 diabetes mellitus without complications (CMS/HCC [...] EST Type 1 diabetes mellitus without complications (CMS/[facility]) documented in this encounter Results * (ABNORMAL) Hemoglobin A1c (08/10/2024 5:55 AM EST) Hemoglobin A1C 8.5(H) <6.5 % LAB CHEMISTRY METHOD 08/10/2024 1:40 PM EST [facility] Mean Bld Glu Estim. 197 mg/dL LAB CHEMISTRY METHOD 08/10/2024 1:40 PM EST [facility] Blood Venous blood specimen / Unknown Venipuncture / Unknown 08/10/2024 5:55 AM EST 08/10/2024 10:32 AM EST Michelle Rucker MD LAB BLOOD ORDERABLES Fin al Result [facility] ([facility]) [facility] [address] [place] [address], documented in this encounter Visit Diagnoses Diagnosis Type 1 diabetes mellitus without complications (CMS/HCC V24, CMS/HCC V28) documented in this encounter Additional Health Concerns Infection Onset Date Last Indicated Resolved Time C. difficile Rule-Out 08/14/2024 08/13/20242024 11:06 AM EST MDRO (other) 12/15/2024 12/15/2024 documented as of this encounter Care Teams Roofer Metal Relationship Specialty Start Date End Date Michelle Rucker MD [address] [place] [phone] PCP - General Family Medicine 05/06/24 documented as of this encounter
--- OUTSIDE RECORDS SUMMARY | 2025-03-15 12:05 | XMS_ITS | Encounter Summary ---
Author Organization [facility] Address [address] [place] [phone] Care Team Providers Care Press Machine Operator Name Role Phone Michelle Rucker MD Primary Care Provider + Encounter Details Date Type Department Care Team (Late st Contact Info) Description 07/07/2024 Lab Requisition [facility] - Main Lab 299 [facility] [place] [address] Michelle Rucker MD [address] [address] Heart failure, unspecified (CMS/HCC V24, [...] mmol/L LAB CHEMISTRY METHOD 07/08/2024 10:15 AM [facility] Potassium 4.4 3.5 - 5.5 mmol/L LAB CHEMISTRY METHOD 07/08/2024 10:15 AM [facility] Chloride 101 96 - 110 mmol/L LAB CHEMISTRY METHOD 07/08/2024 10:15 AM [facility] CO2 27 21 - 32 mmol/L LAB CHEMISTRY METHOD 07/08/2024 10:15 AM [facility] Anion Gap 7 3 - 11 LAB CHEMISTRY METHOD 07/08/2024 10:15 AM [facility] Glucose 342(H) 70 - 100 mg/dL LAB CHEMISTRY METHOD 07/08/2024 10:15 AM [facility] BUN 33(H) 5 - 25 mg/dL LAB CHEMISTRY METHOD 07/08/2024 10:15 AM [facility] Creatinine 1.50(H) 0.70 - 1.30 mg/dL LAB CHEMISTRY METHOD 07/08/2024 10:15 AM [facility] eGFR 51(L) >=60 mL/min/1. 73m2 LAB CHEMISTRY METHOD 07/08/2024 10:15 AM [facility] Comment:Calculation based on the Chronic Kidney Disease Epidemiology Collaboration (CKD-EPI) equation refit without adjustment for race. BUN/Creatinine Ratio 22.0 LAB CHEMISTRY METHOD 07/08/2024 10:15 AM [facility] Calcium 9.3 8.5 - 10.5 mg/dL LAB CHEMISTRY METHOD 07/08/2024 10:15 AM [facility] AST (SGOT) 14 10 - 42 unit/L LAB CHEMISTRY METHOD 07/08/2024 10:15 AM [facility] ALT (SGPT) 12 10 - 60 unit/L LAB CHEMISTRY METHOD 07/08/2024 10:15 AM [facility] Alkaline Phosphatase 74 42 - 121 unit/L LAB CHEMISTRY METHOD 07/08/2024 10:15 AM [facility] Total Protein 6.8 6.0 - 8.0 g/dL LAB CHEMISTRY METHOD 07/08/2024 10:15 AM [facility] Albumin 2.6(L) 3.2 - 5.0 g/dL LAB CHEMISTRY METHOD 07/08/2024 10:15 AM [facility] Total Bilirubin 0.4 0.0 - 1.4 mg/dL LAB CHEMISTRY METHOD 07/08/2024 10:15 AM [facility] Blood Venous blood specimen / Unknown Venipuncture / Unknown 07/08/2024 5:38 AM EST 07/08/2024 8:44 AM EST us Michelle Rucker MD LAB BLOOD ORDERABLES Fin al Result [facility] [address] [place] [address], * (ABNORMAL) Complete blood count (07/08/2024 5:38 AM EST) WBC 9.1 4.8 - 10.8 K/mcL LAB HEMETOLOGY METHOD 07/08/2024 8:56 AM [facility] RBC 4.70 4.50 - 5.50 M/mcL LAB HEMETOLOGY METHOD 07/08/2024 8:56 AM [facility] Hemoglobin 12.4(L) 13.5 - 17.5 g/dL LAB HEMETOLOGY METHOD 07/08/2024 8:56 AM EST [facility] Hematocrit 39.6(L) 42.0 - 54.0 % LAB HEMETOLOGY METHOD 07/08/2024 8:56 AM [facility] MCV 83.7 79.0 - 98.0 FL LAB HEMETOLOGY METHOD 07/08/2024 8:56 AM [facility] MCH 26.2(L) 27.0 - 32.0 pcg LAB HEMETOLOGY METHOD 07/08/2024 8:56 AM EST [facility] MCHC 31.3(L) 32.0 - 37.0 g/dL LAB HEMETOLOGY METHOD 07/08/2024 8:56 AM [facility] RDW 15.8(H) 11.0 - 15.0 % LAB HEMETOLOGY METHOD 07/08/2024 8:56 AM [facility] Platelets 252 130 - 400 K/mcL LAB HEMETOLOGY METHOD 07/08/2024 8:56 AM EST [facility] MPV 11.3(H) 7.0 - 11.0 FL LAB HEMETOLOGY METHOD 07/08/2024 8:56 AM EST [facility] NRBC 0.0 <1.0 % LAB HEMETOLOGY METHOD 07/08/2024 8:56 AM [facility] NRBC Absolute 0.00 <0.10 K/mcL LAB HEMETOLOGY METHOD 07/08/2024 8:56 AM [facility] Blood Venous blood specimen / Unknown Venipuncture / Unknown 07/08/2024 5:38 AM EST 07/08/2024 8:44 AM EST us Michelle Rucker MD LAB BLOOD ORDERABLES Fin al Result [facility] [address] [place] [address], documented in this encounter Visit Diagnoses Diagnosis Heart failure, unspecified ([facility] V24, [facility] V28) Heart failure, unspecified Vitamin D deficiency, unspecified Hyperlipidemia, unspecified Anemia, unspecified Type 1 diabetes mellitus with diabetic neuropathy, unspecified ([facility] V24, [facility] V28) 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 difficile Rule-Out 08/14/2024 08/13/20242024 11:06 AM EST MDRO (other) 12/15/2024 12/15/2024 documented as of this encounter Care Teams Press Machine Operator Relationship Specialty Start Date End Date Michelle Rucker MD [address] [address] PCP - General Family Medicine 05/06/24 documented as of this encounter
--- OUTSIDE RECORDS SUMMARY | 2025-03-15 12:05 | XMS_ITS | Encounter Summary ---
Author Organization [facility] Address [address] [place] [phone] Care Team Providers Care Poultry Scalder Name Role Phone Michelle Rucker MD Primary Care Provider + Encounter Details Date Type Department Care Team (Late st Contact Info) Description 07/21/2024 Lab Requisition [facility] - Main Lab [address] [facility] [place] [address] Michelle Rucker MD [address] [phone] Vitamin D deficiency, unspecified; Type 1 diabetes [...] as of this encounter Care Teams Poultry Scalder Relationship Specialty Start Date End Date Michelle Rucker MD [address] [address] PCP - General Family Medicine 05/06/24 documented as of this encounter
--- OUTSIDE RECORDS SUMMARY | 2025-03-15 12:05 | XMS_ITS | Encounter Summary ---
Author Organization [facility] Address [address] [address] Phone Care Team Providers Care Safety Professional Name Role Phone Tennille Linton NP Primary Care Provider + Encounter Details Date Type Department Care Team (Late st Contact Info) Description 11/30/2024 Documentation Only [facility] [place], [address] [place] [address] [place] [address] [place] [phone] Social History Tobacco Use Types Packs/Day [...] Visit [facility] [place] [address] [place] [address] Andrey Phan MD [address] [facility] [place] [address] documented as of this encounter Visit Diagnoses Not on filedocumented in this encounter Care Teams Safety Professional Relationship Specialty Start Date End Date Tennille Linton NP [address] [place] [phone] PCP - General Nurse Practitioner 08/07/23 documented as of this encounter
--- OUTSIDE RECORDS SUMMARY | 2025-03-15 12:05 | XMS_ITS | Encounter Summary ---
Author Organization [facility] Address [address] [address] Phone Care Team Providers Care Registered Art Therapist Name Role Phone Tennille Linton NP Primary Care Provider + Encounter Details Date Type Department Care Team (Late st Contact Info) Description 12/01/2024 Documentation Only [facility] [place], [address] [address] [place] [address] [place] [phone] Social History Tobacco Use Types Packs/Day [...] [facility] [place] [address] [address] Andrey Phan MD [address] [facility] [place] [address] documented as of this encounter Visit Diagnoses Not on filedocumented in this encounter Care Teams Registered Art Therapist Relationship Specialty Start Date End Date Tennille Linton NP [address] [place] [phone] PCP - General Nurse Practitioner 08/07/23 documented as of this encounter
--- OUTSIDE RECORDS SUMMARY | 2025-03-15 12:05 | XMS_ITS | Encounter Summary ---
Author Organization [facility] [place], Address [address] [address] Phone Care Team Providers Care Resident Care Director Name Role Phone RoyereTnnille cantor Sloane NATHAN Primary Care Provider + Reason for Visit * Reason Comments Med Refill Encounter Details Date Type Department Care Team (Late st Contact Info) Description 07/11/2021 Refill [facility] [address] [place] [address] Denise Isblel PA [address] [place] [address] [place] [address] Social History Tobacco Use [...] Visit [facility] [place] [address] [place] [phone] Andrey Phan MD [address] [place] [address] [place] [phone] documented as of this encounter Visit Diagnoses Not on filedocumented in this encounter Care Teams Resident Care Director Relationship Specialty Start Date End Date Tennille Linton NP [address] [place] [phone] PCP - General Nurse Practitioner 08/07/23 documented as of this encounter
--- OUTSIDE RECORDS SUMMARY | 2025-03-15 12:05 | XMS_ITS | Encounter Summary ---
Author Organization [facility] Address [address] [place] [phone] Care Team Providers Care Loan Review Manager Name Role Phone Michelle Rucker MD Primary Care Provider + Encounter Details Date Type Department Care Team (Late st Contact Info) Description 08/08/2024 Lab Requisition [facility] - Main Lab [address] [place] [address] Michelle Rucker MD [address] [phone] Hyperlipidemia, unspecified Social History Tobacco Use Types [...] LAB CHEMISTRY METHOD 08/08/2024 9:26 AM EST [facility] Potassium 4.6 3.5 - 5.5 mmol/L LAB CHEMISTRY METHOD 08/08/2024 9:26 AM EST [facility] Chloride 96 96 - 110 mmol/L LAB CHEMISTRY METHOD 08/08/2024 9:26 AM EST [facility] CO2 28 21 - 32 mmol/L LAB CHEMISTRY METHOD 08/08/2024 9:26 AM [facility] Anion Gap 6 3 - 11 LAB CHEMISTRY METHOD 08/08/2024 9:26 AM [facility] Glucose 257(H) 70 - 100 mg/dL LAB CHEMISTRY METHOD 08/08/2024 9:26 AM [facility] BUN 25 5 - 25 mg/dL LAB CHEMISTRY METHOD 08/08/2024 9:26 AM [facility] Creatinine 1.44(H) 0.70 - 1.30 mg/dL LAB CHEMISTRY METHOD 08/08/2024 9:26 AM [facility] eGFR 54(L) >=60 mL/min/1. 73m2 LAB CHEMISTRY METHOD 08/08/2024 9:26 AM [facility] Comment:Calculation based on the Chronic Kidney Disease Epidemiology Collaboration (CKD-EPI) equation refit without adjustment for race. BUN/Creatinine Ratio 17.4 LAB CHEMISTRY METHOD 08/08/2024 9:26 AM [facility] Calcium 9.4 8.5 - 10.5 mg/dL LAB CHEMISTRY METHOD 08/08/2024 9:26 AM [facility] Blood Venous blood specimen / Unknown Venipuncture / Unknown 08/08/2024 6:19 AM EST 08/08/2024 7:50 AM EST us Michelle Rucker MD LAB BLOOD ORDERABLES Fin al Result [facility] [address] [place] [address], documented in this encounter Visit Diagnoses Diagnosis Hyperlipidemia, unspecified documented in this encounter Additional Health Concerns Infection Onset Date Last Indicated Resolved Time C. difficile Rule-Out 08/14/2024 08/13/20242024 11:06 AM EST MDRO (other) 12/15/2024 12/15/2024 documented as of this encounter Care Teams Loan Review Manager Relationship Specialty Start Date End Date Michelle Rucker MD 9 [place] [address] PCP - General Family Medicine 05/06/24 documented as of this encounter
--- OUTSIDE RECORDS SUMMARY | 2025-03-15 12:05 | XMS_ITS | Encounter Summary ---
Author Organization [facility] Address [address] [place] [phone] Care Team Providers Care Tool Operator Name Role Phone Michelle Rucker MD Primary Care Provider + Encounter Details Date Type Department Care Team (Late st Contact Info) Description 08/12/2024 Lab Requisition [facility] - Main Lab 299 [facility] [place] [address] Michelle Rucker MD [address] [address] Type 1 diabetes mellitus with [...] mmol/L LAB CHEMISTRY METHOD 08/13/2024 12:02 PM [facility] Potassium 4.4 3.5 - 5.5 mmol/L LAB CHEMISTRY METHOD 08/13/2024 12:02 PM [facility] Chloride 95(L) 96 - 110 mmol/L LAB CHEMISTRY METHOD 08/13/2024 12:02 PM [facility] CO2 31 21 - 32 mmol/L LAB CHEMISTRY METHOD 08/13/2024 12:02 PM [facility] Anion Gap 7 3 - 11 LAB CHEMISTRY METHOD 08/13/2024 12:02 PM [facility] Glucose 175(H) 70 - 100 mg/dL LAB CHEMISTRY METHOD 08/13/2024 12:02 PM [facility] BUN 34(H) 5 - 25 mg/dL LAB CHEMISTRY METHOD 08/13/2024 12:02 PM [facility] Creatinine 1.27 0.70 - 1.30 mg/dL LAB CHEMISTRY METHOD 08/13/2024 12:02 PM [facility] eGFR 62 >=60 mL/min/1. 73m2 LAB CHEMISTRY METHOD 08/13/2024 12:02 PM [facility] Comment:Calculation based on the Chronic Kidney Disease Epidemiology Collaboration (CKD-EPI) equation refit without adjustment for race. BUN/Creatinine Ratio 26.8 LAB CHEMISTRY METHOD 08/13/2024 12:02 PM [facility] Calcium 9.6 8.5 - 10.5 mg/dL LAB CHEMISTRY METHOD 08/13/2024 12:02 PM [facility] Blood Venous blood specimen / Unknown Venipuncture / Unknown 08/13/2024 7:21 AM EST 08/13/2024 11:12 AM EST us Michelle Rucker MD LAB BLOOD ORDERABLES Fin al Result [facility] [address] [place] [address], [place] [phone] * (ABNORMAL) Complete blood count (08/13/2024 7:21 AM EST) WBC 11.4(H) 4.8 - 10.8 K/mcL LAB HEMETOLOGY METHOD 08/13/2024 11:35 AM [facility] RBC 3.50(L) 4.50 - 5.50 M/mcL LAB HEMETOLOGY METHOD 08/13/2024 11:35 AM [facility] Hemoglobin 9.2(L) 13.5 - 17.5 g/dL LAB HEMETOLOGY METHOD 08/13/2024 11:35 AM [facility] Hematocrit 29.8(L) 42.0 - 54.0 % LAB HEMETOLOGY METHOD 08/13/2024 11:35 AM [facility] MCV 84.2 79.0 - 98.0 FL LAB HEMETOLOGY METHOD 08/13/2024 11:35 AM [facility] MCH 26.0(L) 27.0 - 32.0 pcg LAB HEMETOLOGY METHOD 08/13/2024 11:35 AM [facility] MCHC 30.9(L) 32.0 - 37.0 g/dL LAB HEMETOLOGY METHOD 08/13/2024 11:35 AM [facility] RDW 15.2(H) 11.0 - 15.0 % LAB HEMETOLOGY METHOD 08/13/2024 11:35 AM [facility] Platelets 360 130 - 400 K/mcL LAB HEMETOLOGY METHOD 08/13/2024 11:35 AM [facility] MPV 11.3(H) 7.0 - 11.0 FL LAB HEMETOLOGY METHOD 08/13/2024 11:35 AM EST [facility] NRBC 0.0 <1.0 % LAB [facility] METHOD 08/13/2024 11:35 AM EST [facility] NRBC Absolute 0.00 <0.10 K/mcL LAB HEMETOLOG METHOD 08/13/2024 11:35 AM EST [facility] Blood Venous blood specimen / Unknown Venipuncture / Unknown 08/13/2024 7:21 AM EST 08/13/2024 11:12 AM EST Michelle Rucker MD LAB BLOOD ORDERABLES Fin al Result [facility] [address] [place] [address], documented in this encounter Visit Diagnoses Diagnosis [...] documented as of this encounter Care Teams Tool Operator Relationship Specialty Start Date End Date Michelle Rucker MD [address] [place] [phone] PCP - General Family Medicine 05/06/24 documented as of this encounter
--- OUTSIDE RECORDS SUMMARY | 2025-03-15 12:05 | XMS_ITS | Encounter Summary ---
Author Organization [facility] Address [address] [place] [phone] Care Team Providers Care Artist'S Model Name Role Phone Michelle Rucker MD Primary Care Provider + Encounter Details Date Type Department Care Team (Late st Contact Info) Description 07/30/2024 Lab Requisition [facility] - Main Lab 299 [facility] [address] Michelle Rucker MD [address] [phone] Kidney transplant status; Malignant (primary) neoplasm, unspecified [...] documented as of this encounter Care Teams Artist'S Model Relationship Specialty Start Date End Date Michelle Rucker MD [address] [phone] PCP - General Family Medicine 05/06/24 documented as of this encounter
--- OUTSIDE RECORDS SUMMARY | 2025-03-15 12:05 | XMS_ITS | Encounter Summary ---
Author Organization [facility] Address [address] [place] [phone] Care Team Providers Care Pastrycook'S Assistant Name Role Phone Michelle Rucker MD Primary Care Provider + Encounter Details Date Type Department Care Team (Late st Contact Info) Description 07/24/2024 Lab Requisition [facility] - Main Lab 299 [facility] [place] [address] Michelle Rucker MD [address] [address] Malignant (primary) neoplasm, unspecified (CMS/HCC [...] LAB CHEMISTRY METHOD 07/24/2024 11:18 AM EST [facility] Blood Venous blood specimen / Unknown Venipuncture / Unknown 07/24/2024 7:23 AM EST 07/24/2024 9:40 AM EST Michelle Rucker MD LAB BLOOD ORDERABLES Fin al Result Performing Organization Address City/[facility]/ZIP Co de Phone Number [facility] [address] [place] [address], * Vitamin D 25 hydroxy (07/24/2024 7:23 AM EST) Vit D, 25-Hydroxy 48.6 30.0 - 80.0 ng/mL LAB CHEMISTRY METHOD 07/24/2024 11:01 AM EST [facility] Blood Venous blood specimen / Unknown Venipuncture / Unknown 07/24/2024 7:23 AM EST 07/24/2024 9:40 AM EST Michelle Rucker MD LAB BLOOD ORDERABLES Fin al Result [facility] [address] [place] [address], * Folate (07/24/2024 7:23 AM EST) Folate 9.0 2.8 - 17.0 ng/ml LAB CHEMISTRY METHOD 07/24/2024 11:18 AM EST [facility] Blood Venous blood specimen / Unknown Venipuncture / Unknown 07/24/2024 7:23 AM EST 07/24/2024 9:40 AM EST Michelle Rucker MD LAB BLOOD ORDERABLES Fin al Result Performing Organization Address [facility]/ZIP Co de Phone Number [facility] [address] [place] [address], * (ABNORMAL) Magnesium (07/24/2024 7:23 AM EST) Magnesium 1.7(L) 1.9 - 2.6 mg/dL LAB CHEMISTRY METHOD 07/24/2024 10:52 AM EST [facility] Blood Venous blood specimen / Unknown Venipuncture / Unknown 07/24/2024 7:23 AM EST 07/24/2024 9:40 AM EST Michelle Rucker MD LAB BLOOD ORDERABLES Fin al Result Performing Organization Address [facility] Co de Phone Number [facility] [address] [place] [address], * Thyroid stimulating hormone (07/24/2024 7:23 AM EST) TSH 3.67 0.40 - 4.00 mcIU/mL LAB CHEMISTRY METHOD 07/24/2024 11:01 AM EST [facility] Blood Venous blood specimen / Unknown Venipuncture / Unknown 07/24/2024 7:23 AM EST 07/24/2024 9:40 AM EST Michelle Rucker MD LAB BLOOD ORDERABLES Fin al Result Performing Organization Address City/[facility]/ZIP Co de Phone Number [facility] [address] [place] [address], [place] [phone] * (ABNORMAL) Hemoglobin A1c (07/24/2024 7:23 AM EST) Hemoglobin A1C 8.3(H) <6.5 % LAB CHEMISTRY METHOD 07/24/2024 1:50 PM EST [facility] Mean Bld Glu Estim. 192 mg/dL LAB CHEMISTRY METHOD 07/24/2024 1:50 PM [facility] Blood Venous blood specimen / Unknown Venipuncture / Unknown 07/24/2024 7:23 AM EST 07/24/2024 9:40 AM EST us Michelle Rucker MD LAB BLOOD ORDERABLES Fin al Result [facility] [address] [place] [address], * (ABNORMAL) Renal function panel (07/24/2024 7:23 AM EST) [facility] Sodium 130(L) 133 - 145 mmol/L LAB CHEMISTRY METHOD 07/24/2024 10:55 AM [facility] Potassium 5.3 3.5 - 5.5 mmol/L LAB CHEMISTRY METHOD 07/24/2024 10:55 AM [facility] Chloride 98 96 - 110 mmol/L LAB CHEMISTRY METHOD 07/24/2024 10:55 AM [facility] CO2 26 21 - 32 mmol/L LAB CHEMISTRY METHOD 07/24/2024 10:55 AM [facility] Anion Gap 6 3 - 11 LAB CHEMISTRY METHOD 07/24/2024 10:55 AM [facility] Glucose 335(H) 70 - 100 mg/dL LAB CHEMISTRY METHOD 07/24/2024 10:55 AM [facility] BUN 23 5 - 25 mg/dL LAB CHEMISTRY METHOD 07/24/2024 10:55 AM [facility] Creatinine 1.22 0.70 - 1.30 mg/dL LAB CHEMISTRY METHOD 07/24/2024 10:55 AM [facility] eGFR 65 >=60 mL/min/1. 73m2 LAB CHEMISTRY METHOD 07/24/2024 10:55 AM [facility] Comment:Calculation based on the Chronic Kidney Disease Epidemiology Collaboration (CKD-EPI) equation refit without adjustment for race. BUN/Creatinine Ratio 18.9 LAB CHEMISTRY METHOD 07/24/2024 10:55 AM [facility] Albumin 2.5(L) 3.2 - 5.0 g/dL LAB CHEMISTRY METHOD 07/24/2024 10:55 AM [facility] Calcium 9.4 8.5 - 10.5 mg/dL LAB CHEMISTRY METHOD 07/24/2024 10:55 AM [facility] Phosphorus 3.7 2.5 - 4.5 mg/dL LAB CHEMISTRY METHOD 07/24/2024 10:55 AM [facility] Blood Venous blood specimen / Unknown Venipuncture / Unknown 07/24/2024 7:23 AM EST 07/24/2024 9:40 AM EST Michelle Rucker MD LAB BLOOD ORDERABLES Fin al Result [facility] [address] [place] [address], * (ABNORMAL) Basic metabolic panel (07/24/2024 7:23 AM EST) Sodium 130(L) 133 - 145 mmol/L LAB CHEMISTRY METHOD 07/24/2024 10:55 AM [facility] Potassium 5.3 3.5 - 5.5 mmol/L LAB CHEMISTRY METHOD 07/24/2024 10:55 AM [facility] Chloride 98 96 - 110 mmol/L LAB CHEMISTRY METHOD 07/24/2024 10:55 AM [facility] CO2 26 21 - 32 mmol/L LAB CHEMISTRY METHOD 07/24/2024 10:55 AM [facility] Anion Gap 6 3 - 11 LAB CHEMISTRY METHOD 07/24/2024 10:55 AM [facility] Glucose 335(H) 70 - 100 mg/dL LAB CHEMISTRY METHOD 07/24/2024 10:55 AM [facility] BUN 23 5 - 25 mg/dL LAB CHEMISTRY METHOD 07/24/2024 10:55 AM [facility] Creatinine 1.22 0.70 - 1.30 mg/dL LAB CHEMISTRY METHOD 07/24/2024 10:55 AM [facility] eGFR 65 >=60 mL/min/1. 73m2 LAB CHEMISTRY METHOD 07/24/2024 10:55 AM [facility] Comment: Calculation based on the Chronic Kidney Disease Epidemiology Collaboration (CKD-EPI) equation refit without adjustment for race. Calculation based on the Chronic Kidney Disease Epidemiology Collaboration (CKD-EPI) equation refit without adjustment for race. BUN/Creatinine Ratio 18.9 LAB CHEMISTRY METHOD 07/24/2024 10:55 AM [facility] Calcium 9.4 8.5 - 10.5 mg/dL LAB CHEMISTRY METHOD 07/24/2024 10:55 AM [facility] Blood Venous blood specimen / Unknown Venipuncture / Unknown 07/24/2024 7:23 AM EST 07/24/2024 9:40 AM EST us Michelle Rucker MD LAB BLOOD ORDERABLES Fin al Result [facility] [address] [place] [address], * (ABNORMAL) Complete blood count (07/24/2024 7:23 AM EST) WBC 10.2 4.8 - 10.8 K/mcL LAB HEMETOLOGY METHOD 07/24/2024 10:29 AM EST [facility] RBC 4.40(L) 4.50 - 5.50 M/mcL LAB HEMETOLOGY METHOD 07/24/2024 10:29 AM [facility] Hemoglobin 11.3(L) 13.5 - 17.5 g/dL LAB HEMETOLOGY METHOD 07/24/2024 10:29 AM [facility] Hematocrit 36.1(L) 42.0 - 54.0 % LAB HEMETOLOGY METHOD 07/24/2024 10:29 AM [facility] MCV 82.8 79.0 - 98.0 FL LAB HEMETOLOGY METHOD 07/24/2024 10:29 AM [facility] MCH 25.9(L) 27.0 - 32.0 pcg LAB HEMETOLOGY METHOD 07/24/2024 10:29 AM [facility] MCHC 31.3(L) 32.0 - 37.0 g/dL LAB HEMETOLOGY METHOD 07/24/2024 10:29 AM [facility] RDW 16.6(H) 11.0 - 15.0 % LAB HEMETOLOGY METHOD 07/24/2024 10:29 AM [facility] Platelets 276 130 - 400 K/mcL LAB HEMETOLOGY METHOD 07/24/2024 10:29 AM [facility] MPV 10.5 7.0 - 11.0 FL LAB HEMETOLOGY METHOD 07/24/2024 10:29 AM [facility] NRBC 0.0 <1.0 % LAB HEMETOLOGY METHOD 07/24/2024 10:29 AM [facility] NRBC Absolute 0.00 <0.10 K/mcL LAB HEMETOLOGY METHOD 07/24/2024 10:29 AM [facility] Blood Venous blood specimen / Unknown Venipuncture / Unknown 07/24/2024 7:23 AM EST 07/24/2024 9:40 AM EST Michelle Rucker MD LAB BLOOD ORDERABLES Fin al Result [facility] [address] [place] [address], documented in this encounter Visit Diagnoses Diagnosis Malignant (primary) neoplasm, unspecified (CMS/[facility] V24, [facility] V28) Unspecified complication of kidney transplant Type 1 diabetes mellitus with diabetic neuropathy, unspecified (CMS/[facility] V24, [facility] V28) Gastro-esophageal reflux disease without esophagitis Vitamin D deficiency, unspecified documented in this encounter Additional Health Concerns Infection Onset Date Last Indicated Resolved Time C. difficile Rule-Out 08/14/2024 08/13/20242024 11:06 AM EST MDRO (other) 12/15/2024 12/15/2024 documented as of this encounter Care Teams Pastrycook'S Assistant Relationship Specialty Start Date End Date Michelle Rucker MD [address] [place] [phone] PCP - General Family Medicine 05/06/24 documented as of this encounter
--- OUTSIDE RECORDS SUMMARY | 2025-03-15 12:05 | XMS_ITS | Encounter Summary ---
Author Organization [facility] Address [address] [place] [phone] Care Team Providers Care Curriculum Development Coordinator Name Role Phone Michelle Rucker MD Primary Care Provider + Encounter Details Date Type Department Care Team (Late st Contact Info) Description 07/14/2024 Lab Requisition [facility] - Main Lab 299 [facility] [place] [address] Michelle Rucker MD [address] [phone] Heart failure, unspecified (CMS/HCC V24, CMS/[facility] V28); Vitamin D deficiency, unspecified; Hyperlipidemia, unspecified; [...] mellitus with diabetic neuropathy, unspecified (CMS/HCC V24, CMS/[facility] V28) 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 difficile Rule-Out 08/14/2024 08/13/20242024 11:06 AM EST MDRO (other) 12/15/2024 12/15/2024 documented as of this encounter Care Teams Curriculum Development Coordinator Relationship Specialty Start Date End Date Michelle Rucker MD [address] [address] PCP - General Family Medicine 05/06/24 documented as of this encounter
--- OUTSIDE RECORDS SUMMARY | 2025-03-15 12:05 | XMS_ITS | Encounter Summary ---
Author Organization [facility] Address [address] [place] [phone] Care Team Providers Care Senior Mobile Application Developer Name Role Phone Michelle Rucker MD Primary Care Provider + Encounter Details Date Type Department Care Team (Late st Contact Info) Description 08/13/2024 Lab Requisition [facility] - Main Lab 299 [place] [address] Michelle Rucker MD [address] [phone] Urinary tract infection, site not specified Social [...] reflex microscopic (08/12/2024 10:00 PM EST) Specific [place] Urine 1.009 1.003 - 1.030 LAB URINALYSIS - AUTOMATED METHOD 08/13/2024 12:01 PM [facility] pH, Urine 6.5 5.0 - 8.0 pH LAB URINALYSIS - AUTOMATED METHOD 08/13/2024 12:01 PM [facility] Leukocytes, Urine Large(A) Negative LAB URINALYSIS - AUTOMATED METHOD 08/13/2024 12:01 PM [facility] Nitrite, Urine Negative Negative LAB URINALYSIS - AUTOMATED METHOD 08/13/2024 12:01 PM [facility] Protein, Urine Trace <=Trace mg/dL LAB URINALYSIS - AUTOMATED METHOD 08/13/2024 12:01 PM [facility] Glucose, Urine Negative Negative mg/dL LAB URINALYSIS - AUTOMATED METHOD 08/13/2024 12:01 PM [facility] Ketones, Urine Negative Negative mg/dL LAB URINALYSIS - AUTOMATED METHOD 08/13/2024 12:01 PM [facility] Urobilinogen, Urine 0.2 0.2 - 1.0 mg/dL LAB URINALYSIS - AUTOMATED METHOD 08/13/2024 12:01 PM [facility] Bilirubin, Urine Negative Negative LAB URINALYSIS - AUTOMATED METHOD 08/13/2024 12:01 PM [facility] Blood, Urine Moderate(A) Negative LAB URINALYSIS - AUTOMATED METHOD 08/13/2024 12:01 PM [facility] RBC, Urine 4.0 0 - 4 /HPF LAB URINALYSIS - AUTOMATED METHOD 08/13/2024 12:01 PM [facility] WBC, Urine 594.1(H) 0 - 4 /HPF LAB URINALYSIS - AUTOMATED METHOD 08/13/2024 12:01 PM [facility] Squamous Epithelial, Urine 0 0 - 60 /LPF LAB URINALYSIS - AUTOMATED METHOD 08/13/2024 12:01 PM [facility] Bacteria, Urine Moderate(A) Negative /HPF LAB URINALYSIS - AUTOMATED METHOD 08/13/2024 12:01 PM EST [facility] Hyaline Casts, Urine 3.0 0 - 3 /LPF LAB URINALYSIS - AUTOMATED METHOD 08/13/2024 12:01 PM EST [facility] Yeast, Urine 3+(A) None /HPF 08/13/2024 12:01 PM EST [facility] Comment:This is an appended report. These results have been appended to a previously final verified report. Urine Urine specimen from urethra / Unknown 08/12/2024 10:00 PM EST 08/13/2024 11:23 AM EST Michelle Rucker MD LAB URINE ORDERABLES Cristian michael Result - Final Performing Organization Address [facility]/ZIP Co de Phone Number [facility] [address] [place] [address], [place] [phone] * (ABNORMAL) Culture urine (08/12/2024 10:00 PM EST) Culture, Urine 50,000-100, 000 CFU/mL Yolande albicans/du bliniensis( A) 08/15/2024 1:21 PM EST [facility] Comment: Edited result: Previously reported as Yeast on 08/14/2024 at 1054 EST. Urine Urine specimen from urethra / Unknown 08/12/2024 10:00 PM EST 08/13/2024 11:23 AM EST Michelle Rucker MD LAB MICROBIOLOGY - GENER AL ORDERABLES Final Result [facility] [address] [place] [address], [place] [phone] documented in this encounter Visit Diagnoses Diagnosis Urinary tract infection, site not specified documented in this encounter Additional Health Concerns Infection Onset Date Last Indicated Resolved Time C. difficile Rule-Out 08/14/2024 08/13/20242024 11:06 AM EST MDRO (other) 12/15/2024 12/15/2024 documented as of this encounter Care Teams Senior Mobile Application Developer Relationship Specialty Start Date End Date Michelle Rucker MD [address] [address] PCP - General Family Medicine 05/06/24 documented as of this encounter
--- OUTSIDE RECORDS SUMMARY | 2025-03-15 12:06 | XMS_ITS | Encounter Summary ---
Author Organization [facility] Address [address] [place] [address] Care Team Providers Care Laminator Hand Name Role Phone Michelle Rucker MD Primary Care Provider + Encounter Details Date Type Department Care Team (Late st Contact Info) Description 10/13/[address] [facility] - Main Lab 299 [facility] [place] [address] Michelle Rucker MD [address] [address] Encounter for therapeutic drug level [...] developed and the performance characteristics determined by [facility]. This confirmation testing has not been cleared or approved by the FDA. The laboratory is regulated under CLIA as qualified to perform high-complexity testing. This test is used for patient testing purposes. It should not be regarded as investigational or for research. Test performed at [facility], [address], [place] [address] Brittanie Horan MD, PhD - Residential [employer]aming Carpenter Blood Venous blood specimen / Unknown Venipuncture / Unknown 10/13/2024 6:50 AM EDT 10/13/2024 8:10 AM EDT Michelle Rucker MD LAB BLOOD ORDERABLES Fin al Result [facility] [address] [place] [address] documented in this encounter Visit Diagnoses Diagnosis Encounter for therapeutic drug level monitoring documented in this encounter Additional Health Concerns Infection Onset Date Last Indicated Resolved Time MDRO (other) 12/15/2024 12/15/2024 documented as of this encounter Care Teams Laminator Hand Relationship Specialty Start Date End Date Michelle Rucker MD [address] [phone] PCP - General Family Medicine 05/06/24 documented as of this encounter
--- OUTSIDE RECORDS SUMMARY | 2025-03-15 12:06 | XMS_ITS | Clinical Summary ---
Author Organization [address] [facility] Address [address] [place] [address] Phone Care Team Providers Care Data Warehousing Manager Name Role Phone Elder, Michelle Alonso MD Primary Care Provider + Encounters Date Type Department Care Team Description 12/15/2024 Lab Requisition [facility] - Main Lab 299 [facility] [place] [address] Harshad Thornton PA Urinary tract [...] kidney disease, stage 4 (severe) (CMS/HCC V24, CMS/[facility] V28) HEMOGLOBIN A1C Routine 10/02/2024 6:50 AM EDT Immunodeficiency, unspecified ([facility] V24) MICROALBUMIN CREATININE URINE RATIO Routine 10/01/2024 1:45 PM EDT Acute kidney failure, unspecified ([facility] V24) Other acute kidney failure ([facility] V24) from Last 3 Months or Most Recently Relevant to Health Maintenance Results * (ABNORMAL) Culture urine (12/15/2024 12:00 AM EDT) Pathologist [facility] Culture, Urine 10,000-49,000 CFU/mL Pseudomonas aeruginosa(A) YENNIFER 12/18/2024 10:25 AM EDT [facility] Comment: This is an edited [...] Susceptible Pseudomonas aeruginosa Cefepime DISK DIFFUSION Susceptible [facility] [place] [facility] MICROBIOLOGY - GENERAL ORDE HANY Final Result [facility] [address] [place] [address], * (ABNORMAL) Basic metabolic panel (10/30/2024 7:43 AM EDT) [facility] Sodium 141 133 - 145 mmol/L LAB CHEMISTRY METHOD 10/30/2024 9:54 AM EDT [facility] Potassium 4.6 3.5 - 5.5 mmol/L LAB CHEMISTRY METHOD 10/30/2024 9:54 AM EDT [facility] Chloride 110 96 - 110 mmol/L LAB CHEMISTRY METHOD 10/30/2024 9:[address] [facility] CO2 26 21 - 32 mmol/L LAB CHEMISTRY METHOD 10/30/2024 9:[address] [facility] Anion Gap 5 3 - 11 LAB CHEMISTRY METHOD 10/30/2024 9:[address] [facility] Glucose 114(H) 70 - 100 mg/dL LAB CHEMISTRY METHOD 10/30/2024 9:[address] [facility] BUN 30(H) 5 - 25 mg/dL LAB CHEMISTRY METHOD 10/30/2024 9:[address] [facility] Creatinine 1.95(H) 0.70 - 1.30 mg/dL LAB CHEMISTRY METHOD 10/30/2024 9:[address] [facility] eGFR 37(L) >=60 mL/min/1. 73m2 LAB CHEMISTRY METHOD 10/30/2024 9:[address] [facility] Comment:Calculation based on the Chronic Kidney Disease Epidemiology Collaboration (CKD-EPI) equation refit without adjustment for race. BUN/Creatinine Ratio 15.4 LAB CHEMISTRY METHOD 10/30/2024 9:[address] [facility] Calcium 9.1 8.5 - 10.5 mg/dL LAB CHEMISTRY METHOD 10/30/2024 9:[address] [facility] Blood Venous blood specimen / Unknown Venipuncture / Unknown 10/30/2024 7:43 AM EDT 10/30/2024 9:16 AM EDT us Michelle Rucker MD LAB BLOOD ORDERABLES Fin al Result [facility] [address] [place] [address], * (ABNORMAL) Hemoglobin A1c (10/02/2024 6:50 AM EDT) Hemoglobin A1C 7.3(H) <6.5 % LAB CHEMISTRY METHOD 10/02/2024 2:09 PM EDT [facility] Mean Bld Glu Estim. 163 mg/dL LAB CHEMISTRY METHOD 10/02/2024 2:09 PM EDT [facility] Blood Venous blood specimen / Unknown Venipuncture / Unknown 10/02/2024 6:50 AM EDT 10/02/2024 8:49 AM EDT Michelle Rucker MD LAB BLOOD ORDERABLES Fin al Result Performing Organization Address [facility]/ZIP Co de Phone Number [facility] [address] [place] [address], [place] [phone] * (ABNORMAL) Microalbumin creatinine urine ratio (10/01/2024 1:45 PM EDT) Creatinine, Urine 27.0 mg/dL LAB CHEMISTRY METHOD 10/02/2024 10:08 AM EDT [facility] Microalb, Ur 30.7(H) 0.0 - 29.0 mg/L LAB CHEMISTRY METHOD 10/02/2024 10:08 AM EDT [facility] Microalb/Crea t Ratio 114(H) <30 mg/g creat LAB CHEMISTRY METHOD 10/02/2024 10:08 AM EDT [facility] Urine Urine specimen obtained by clean catch procedure / Unknown Non-blood Collection / Unknown 10/01/2024 1:45 PM EDT 10/02/2024 8:46 AM EDT Michelle Rucker MD LAB URINE ORDERABLES Fin al Result Performing Organization Address City/[facility]/ZIP Co de Phone Number [facility] [address] [place] [address], [place] [phone] from Last 3 Months or Most Recently Relevant to Health Maintenance Additional Health Concerns Infection Onset Date Last Indicated MDRO (other) 12/15/2024 12/15/2024 Insurance [employer] Member Subscriber Plan / Payer (Ef fective 2016-Present) Name:HARVEY LAW Relation to Subscriber:Self Name:Harvey Law Payer ID:[id number] Group ID:[id number] Type:Not on file Address: [facility] [place] [phone] Care Teams Data Warehousing Manager Relationship Specialty Start Date End Date Michelle Rucker MD [address] [address] PCP - General Family Medicine 05/06/24
--- OUTSIDE RECORDS SUMMARY | 2025-03-15 12:06 | XMS_ITS | Encounter Summary ---
Author Organization [facility] Address [id number] [place] [phone] Care Team Providers Care Urban Forester Name Role Phone Michelle Rucker MD Primary Care Provider + Encounter Details Date Type Department Care Team (Late st Contact Info) Description 08/13/2024 Lab Requisition [facility] - Main Lab [address] [place] [address] Michelle Rucker MD [address] [phone] Vitamin D deficiency, unspecified; Malignant (primary) neoplasm, [...] mmol/L LAB CHEMISTRY METHOD 08/14/2024 10:39 AM [facility] Potassium 4.4 3.5 - 5.5 mmol/L LAB CHEMISTRY METHOD 08/14/2024 10:39 AM [facility] Chloride 94(L) 96 - 110 mmol/L LAB CHEMISTRY METHOD 08/14/2024 10:39 AM [facility] CO2 30 21 - 32 mmol/L LAB CHEMISTRY METHOD 08/14/2024 10:39 AM [facility] Anion Gap 6 3 - 11 LAB CHEMISTRY METHOD 08/14/2024 10:39 AM [facility] Glucose 277(H) 70 - 100 mg/dL LAB CHEMISTRY METHOD 08/14/2024 10:39 AM [facility] BUN 34(H) 5 - 25 mg/dL LAB CHEMISTRY METHOD 08/14/2024 10:39 AM [facility] Creatinine 1.45(H) 0.70 - 1.30 mg/dL LAB CHEMISTRY METHOD 08/14/2024 10:39 AM [facility] eGFR 53(L) >=60 mL/min/1. 73m2 LAB CHEMISTRY METHOD 08/14/2024 10:39 AM [facility] Comment:Calculation based on the Chronic Kidney Disease Epidemiology Collaboration (CKD-EPI) equation refit without adjustment for race. BUN/Creatinine Ratio 23.4 LAB CHEMISTRY METHOD 08/14/2024 10:39 AM [facility] Calcium 9.8 8.5 - 10.5 mg/dL LAB CHEMISTRY METHOD 08/14/2024 10:39 AM [facility] Blood Venous blood specimen / Unknown Venipuncture / Unknown 08/14/2024 7:21 AM EST 08/14/2024 8:35 AM EST us Michelle Rucker MD LAB BLOOD ORDERABLES Fin al Result [facility] [address] [place] [address], * (ABNORMAL) Complete blood count (08/14/2024 7:21 AM EST) [facility] WBC 12.8(H) 4.8 - 10.8 K/mcL LAB HEMETOLOGY METHOD 08/14/2024 9:50 AM [facility] RBC 4.00(L) 4.50 - 5.50 M/mcL LAB HEMETOLOGY METHOD 08/14/2024 9:50 AM [facility] Hemoglobin 10.3(L) 13.5 - 17.5 g/dL LAB HEMETOLOGY METHOD 08/14/2024 9:50 AM [facility] Hematocrit 33.3(L) 42.0 - 54.0 % LAB HEMETOLOGY METHOD 08/14/2024 9:50 AM [facility] MCV 84.1 79.0 - 98.0 FL LAB HEMETOLOGY METHOD 08/14/2024 9:50 AM [facility] MCH 26.0(L) 27.0 - 32.0 pcg LAB HEMETOLOGY METHOD 08/14/2024 9:50 AM [facility] MCHC 30.9(L) 32.0 - 37.0 g/dL LAB HEMETOLOGY METHOD 08/14/2024 9:50 AM [facility] RDW 14.9 11.0 - 15.0 % LAB HEMETOLOGY METHOD 08/14/2024 9:50 AM [facility] Platelets 373 130 - 400 K/mcL LAB HEMETOLOGY METHOD 08/14/2024 9:50 AM [facility] MPV 10.4 7.0 - 11.0 FL LAB HEMETOLOGY METHOD 08/14/2024 9:50 AM [facility] NRBC 0.0 <1.0 % LAB HEMETOLOGY METHOD 08/14/2024 9:50 AM EST [facility] NRBC Absolute 0.00 <0.10 K/mcL LAB HEMETOLOGY METHOD 08/14/2024 9:50 AM EST [facility] Blood Venous blood specimen / Unknown Venipuncture / Unknown 08/14/2024 7:21 AM EST 08/14/2024 8:35 AM EST us Michelle Rucker MD LAB BLOOD ORDERABLES Fin al Result [facility] [address] [place] [address], documented in this encounter Visit Diagnoses Diagnosis Vitamin D deficiency, unspecified Malignant (primary) neoplasm, unspecified (CMS/HCC V24, CMS/HCC V28) Kidney transplant status documented in this encounter Additional Health Concerns Infection Onset Date Last Indicated Resolved Time C. difficile Rule-Out 08/14/2024 08/13/20242024 11:06 AM EST MDRO (other) 12/15/2024 12/15/2024 documented as of this encounter Care Teams Urban Forester Relationship Specialty Start Date End Date Michelle Rucker MD [address] [place] [phone] PCP - General Family Medicine 05/06/24 documented as of this encounter
--- OUTSIDE RECORDS SUMMARY | 2025-03-15 12:06 | XMS_ITS | Encounter Summary ---
Author Organization [facility] Address [address] [place] [phone] Care Team Providers Care Fast Food Manager Name Role Phone Michelle Rucker MD Primary Care Provider + Encounter Details Date Type Department Care Team (Late st Contact Info) Description 10/30/2024 Lab Requisition [facility] - Main Lab [address] [facility] [place] [address] Micehlle Rucker MD [address] [phone] Chronic kidney disease, stage 4 (severe) (CMS/HCC [...] mmol/L LAB CHEMISTRY METHOD 10/30/2024 9:54 AM [facility] Potassium 4.6 3.5 - 5.5 mmol/L LAB CHEMISTRY METHOD 10/30/2024 9:54 AM [facility] Chloride 110 96 - 110 mmol/L LAB CHEMISTRY METHOD 10/30/2024 9:54 AM [facility] CO2 26 21 - 32 mmol/L LAB CHEMISTRY METHOD 10/30/2024 9:54 AM [facility] Anion Gap 5 3 - 11 LAB CHEMISTRY METHOD 10/30/2024 9:54 AM [facility] Glucose 114(H) 70 - 100 mg/dL LAB CHEMISTRY METHOD 10/30/2024 9:54 AM [facility] BUN 30(H) 5 - 25 mg/dL LAB CHEMISTRY METHOD 10/30/2024 9:54 AM [facility] Creatinine 1.95(H) 0.70 - 1.30 mg/dL LAB CHEMISTRY METHOD 10/30/2024 9:54 AM [facility] eGFR 37(L) >=60 mL/min/1. 73m2 LAB CHEMISTRY METHOD 10/30/2024 9:54 AM [facility] Comment:Calculation based on the Chronic Kidney Disease Epidemiology Collaboration (CKD-EPI) equation refit without adjustment for race. BUN/Creatinine Ratio 15.4 LAB CHEMISTRY METHOD 10/30/2024 9:54 AM [facility] Calcium 9.1 8.5 - 10.5 mg/dL LAB CHEMISTRY METHOD 10/30/2024 9:54 AM [facility] Blood Venous blood specimen / Unknown Venipuncture / Unknown 10/30/2024 7:43 AM EDT 10/30/2024 9:16 AM EDT us Michelle Rucker MD LAB BLOOD ORDERABLES Fin al Result [facility] [address] [place] [address], * Tacrolimus level (10/30/2024 7:43 AM EDT) Tacrolimus Level 7.3 5.0 - 20.0 ng/mL 11/02/2024 9:20 AM EDT [facility] Comment: Additional Information: Toxic Level [...] investigational or for research. Test performed at [facility], [address] , [place] [address] Brittanie Horan MD, PhD - Art Studio Teacher Blood Venous blood specimen / Unknown Venipuncture / Unknown 10/30/2024 7:43 AM EDT 10/30/2024 9:16 AM EDT Michelle Rucker MD LAB BLOOD ORDERABLES Fin al Result [facility] [address] [place] [address] documented in this encounter Visit Diagnoses Diagnosis Chronic kidney disease, stage 4 (severe) (CMS/HCC V24, CMS/HCC V28) documented in this encounter Additional Health Concerns Infection Onset Date Last Indicated Resolved Time MDRO (other) 12/15/2024 12/15/2024 documented as of this encounter Care Teams Fast Food Manager Relationship Specialty Start Date End Date Michelle Rucker MD [address] [phone] PCP - General Family Medicine 05/06/24 documented as of this encounter
--- OUTSIDE RECORDS SUMMARY | 2025-03-15 12:06 | XMS_ITS | Encounter Summary ---
Author Organization [facility] Address [address] [place] [phone] Care Team Providers Care Life Science Teacher Name Role Phone Michelle Rucker MD Primary Care Provider + Encounter Details Date Type Department Care Team (Late st Contact Info) Description 08/19/2024 Lab Requisition [facility] - Main Lab [address] [facility] [place] [address] Michelle Rucker MD [address] [address] Type 1 diabetes mellitus with [...] mmol/L LAB CHEMISTRY METHOD 08/20/2024 11:10 AM [facility] Potassium 4.4 3.5 - 5.5 mmol/L LAB CHEMISTRY METHOD 08/20/2024 11:10 AM [facility] Chloride 98 96 - 110 mmol/L LAB CHEMISTRY METHOD 08/20/2024 11:10 AM [facility] CO2 31 21 - 32 mmol/L LAB CHEMISTRY METHOD 08/20/2024 11:10 AM [facility] Anion Gap 4 3 - 11 LAB CHEMISTRY METHOD 08/20/2024 11:10 AM [facility] Glucose 158(H) 70 - 100 mg/dL LAB CHEMISTRY METHOD 08/20/2024 11:10 AM [facility] BUN 28(H) 5 - 25 mg/dL LAB CHEMISTRY METHOD 08/20/2024 11:10 AM [facility] Creatinine 1.21 0.70 - 1.30 mg/dL LAB CHEMISTRY METHOD 08/20/2024 11:10 AM [facility] eGFR 66 >=60 mL/min/1. 73m2 LAB CHEMISTRY METHOD 08/20/2024 11:10 AM [facility] Comment:Calculation based on the Chronic Kidney Disease Epidemiology Collaboration (CKD-EPI) equation refit without adjustment for race. BUN/Creatinine Ratio 23.1 LAB CHEMISTRY METHOD 08/20/2024 11:10 AM [facility] Calcium 9.7 8.5 - 10.5 mg/dL LAB CHEMISTRY METHOD 08/20/2024 11:10 AM [facility] Blood Venous blood specimen / Unknown Venipuncture / Unknown 08/20/2024 7:05 AM EST 08/20/2024 9:40 AM EST us Michelle Rucker MD LAB BLOOD ORDERABLES Fin al Result [facility] [address] [place] [address], * (ABNORMAL) Complete blood count (08/20/2024 7:05 AM EST) WBC 8.6 4.8 - 10.8 K/mcL LAB HEMETOLOGY METHOD 08/20/2024 9:55 AM [facility] RBC 3.90(L) 4.50 - 5.50 M/mcL LAB HEMETOLOGY METHOD 08/20/2024 9:55 AM [facility] Hemoglobin 10.0(L) 13.5 - 17.5 g/dL LAB HEMETOLOGY METHOD 08/20/2024 9:55 AM [facility] Hematocrit 32.3(L) 42.0 - 54.0 % LAB HEMETOLOGY METHOD 08/20/2024 9:55 AM [facility] MCV 83.2 79.0 - 98.0 FL LAB HEMETOLOGY METHOD 08/20/2024 9:55 AM [facility] MCH 25.8(L) 27.0 - 32.0 pcg LAB HEMETOLOGY METHOD 08/20/2024 9:55 AM [facility] MCHC 31.0(L) 32.0 - 37.0 g/dL LAB HEMETOLOGY METHOD 08/20/2024 9:55 AM [facility] RDW 14.8 11.0 - 15.0 % LAB HEMETOLOGY METHOD 08/20/2024 9:55 AM [facility] Platelets 369 130 - 400 K/mcL LAB HEMETOLOGY METHOD 08/20/2024 9:55 AM [facility] MPV 10.0 7.0 - 11.0 FL LAB HEMETOLOGY METHOD 08/20/2024 9:55 AM EST [facility] NRBC 0.0 <1.0 % LAB HEMETOLOGY METHOD 08/20/2024 9:55 AM EST [facility] NRBC Absolute 0.00 <0.10 K/mcL LAB HEMETOLOGY METHOD 08/20/2024 9:55 AM EST [facility] Blood Venous blood specimen / Unknown Venipuncture / Unknown 08/20/2024 7:05 AM EST 08/20/2024 9:40 AM EST Michelle Rucker MD LAB BLOOD ORDERABLES Fin al Result [facility] [address] [place] [address], documented in this encounter Visit Diagnoses Diagnosis Type 1 diabetes mellitus with diabetic neuropathy, unspecified (CMS/HCC V24, CMS/HCC V28) 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
--- OUTSIDE RECORDS SUMMARY | 2025-03-15 12:06 | XMS_ITS | Encounter Summary ---
Author Organization [facility], Address [address] [place] [address] Phone Care Team Providers Care Night Baker Name Role Phone Ebony Lintonher Sloane NATHAN Primary Care Provider + Reason for Visit * Reason Onset Date Comments tacro dose change 03/10/2025 Encounter Details Date Type Department Care Team (Late st Contact Info) Description 03/10/2025 Telephone [facility] [address] [place] [address] Danica Price RN [address] [place] [address] [place] [phone] Social History Tobacco Use Types Packs/Day Years Used Date Smoking Tobacco: Never Alcohol Use Standard Drinks/Week Comments No 0 (1 standard drink = 0.6 oz pur e alcohol) Sex and Gender Information Value Date Recorded Sex Assigned at Not on file Legal Sex Male 4:34 PM EST Gender Identity Not on file Sexual Orientation Not on file documented as of this encounter Miscellaneous Notes * Telephone Encounter - Danica Price RN - 03/10/2025 4:45 PM EDT Tacro level 3.4, goal 5-6. Spoke with pt's sister to increase taco from 2/1 to 2mg bid and rpt level next week. Lab order faxed to Radha QUINTERO. documented in this encounter Plan of Treatment Upcoming Encounters Date Type Department Care Team (Late st Contact Info) Description 05/05/2025 11:00 AM EST Office Visit [facility] [address] [place] [phone] Andrey Phan MD [address] [place] [address] [place] [phone] Scheduled Orders Name Type Priority Associated Diagnoses Orde r Schedule Tacrolimus, Highly Sensitive, LC/MS/MS Lab Routine Kidney replaced by transplant History of immunosuppressive therapy Stage 3b chronic kidney disease (HCC) Expected: 03/10/2025, Expires: 04/09/2026 documented as of this encounter Visit Diagnoses Diagnosis Kidney replaced by transplant- Primary History of immunosuppressive therapy Stage 3b chronic kidney disease (HCC) documented in this encounter Care Teams Night Baker Relationship Specialty Start Date End Date Tennille Linton [facility] [place] [phone] PCP - General Nurse Practitioner 08/07/23 documented as of this encounter
--- OUTSIDE RECORDS SUMMARY | 2025-03-15 12:06 | XMS_ITS | Encounter Summary ---
Author Organization [facility] Address [id number] [place] [phone] Care Team Providers Care Dough Cutting Machine Operator Name Role Phone Michelle Rucker MD Primary Care Provider + Encounter Details Date Type Department Care Team (Late st Contact Info) Description 10/19/2024 Lab Requisition [facility] - Main Lab 299 [facility] [place] [address] Michelle Rucker MD [address] [phone] Acute kidney failure, unspecified (CMS/HCC V24); Encounter [...] [facility], [address], [place] [address] Brittanie Horan MD, PhD - Manager Night Blood Venous blood specimen / Unknown Venipuncture / Unknown 10/20/2024 8:08 AM EDT 10/20/2024 9:11 AM EDT Michelle Rucker MD LAB BLOOD ORDERABLES Fin al Result [facility] [address] [place] [address] documented in this encounter Visit Diagnoses Diagnosis Acute kidney failure, unspecified (CMS/[facility] V24) Acute kidney failure, unspecified Encounter for therapeutic drug level monitoring documented in this encounter Additional Health Concerns Infection Onset Date Last Indicated Resolved Time MDRO (other) 12/15/2024 12/15/2024 documented as of this encounter Care Teams Dough Cutting Machine Operator Relationship Specialty Start Date End Date Michelle Rucker MD [address] [address] PCP - General Family Medicine 05/06/24 documented as of this encounter
--- OUTSIDE RECORDS SUMMARY | 2025-03-15 12:06 | XMS_ITS | Encounter Summary ---
Author Organization [facility] Address [address] [place] [phone] Care Team Providers Care Product Management Manager Name Role Phone Michelle Rucker MD Primary Care Provider + Encounter Details Date Type Department Care Team (Late st Contact Info) Description 10/02/2024 Lab Requisition [facility] - Main Lab 299 [facility] [place] [address] Michelle Rucker MD [address] [address] Acute kidney failure, unspecified (CMS/HCC [...] 1:45 PM EDT Acute kidney failure, unspecified ([facility] V24) Other acute kidney failure ([facility] V24) URINALYSIS WITH REFLEX MICROSCOPIC AND CULTURE Routine 10/01/2024 1:45 PM EDT Acute kidney failure, unspecified ([facility] V24) Other acute kidney failure ([facility] V24) documented in this encounter Results * Scott urine culture tube (10/01/2024 1:45 PM EDT) Pathologist [facility] Extra Tube Hold for add-ons. 10/02/2024 11:01 AM EDT [facility] Comment:Auto resulted. Urine Urine specimen obtained by clean catch procedure / Unknown Non-blood Collection / Unknown 10/01/2024 1:45 PM EDT 10/02/2024 9:03 AM EDT us Michelle Rucker MD LAB URINE ORDERABLES Fin al Result [facility] [address] [place] [address], * (ABNORMAL) Urinalysis with reflex microscopic and culture (10/01/2024 1:45 PM EDT) Pathologist [facility] Specific [place] Urine 1.002(L) 1.003 - 1.030 LAB URINALYSIS [...] URINALYSIS - AUTOMATED METHOD 10/02/2024 9:15 AM [facility] Glucose, Urine Negative Negative mg/dL LAB URINALYSIS - AUTOMATED METHOD 10/02/2024 9:15 AM [facility] Ketones, Urine Negative Negative mg/dL LAB URINALYSIS - AUTOMATED METHOD 10/02/2024 9:15 AM [facility] Urobilinogen, Urine 0.2 0.2 - 1.0 mg/dL LAB URINALYSIS - AUTOMATED METHOD 10/02/2024 9:15 AM [facility] Bilirubin, Urine Negative Negative LAB URINALYSIS - AUTOMATED METHOD 10/02/2024 9:15 AM [facility] Blood, Urine Negative Negative LAB URINALYSIS - AUTOMATED METHOD 10/02/2024 9:15 AM [facility] Urine Urine specimen obtained by clean catch procedure / Unknown Non-blood Collection / Unknown 10/01/2024 1:45 PM EDT 10/02/2024 8:46 AM EDT us Michelle Rucker MD LAB URINE ORDERABLES Fin al Result [facility] [address] [place] [address], * (ABNORMAL) Microalbumin creatinine urine ratio (10/01/2024 1:45 PM EDT) Creatinine, Urine 27.0 mg/dL LAB CHEMISTRY METHOD 10/02/2024 10:08 AM [facility] Microalb, Ur 30.7(H) 0.0 - 29.0 mg/L LAB CHEMISTRY METHOD 10/02/2024 10:08 AM [facility] Microalb/Crea t Ratio 114(H) <30 mg/g creat LAB CHEMISTRY METHOD 10/02/2024 10:08 AM EDT [facility] Urine Urine specimen obtained by clean catch procedure / Unknown Non-blood Collection / Unknown 10/01/2024 1:45 PM EDT 10/02/2024 8:46 AM EDT us Michelle Rucker MD LAB URINE ORDERABLES Fin al Result [facility] [address] [place] [address], * (ABNORMAL) BK virus molecular study urine, quantitative (10/01/2024 1:45 PM EDT) BK Virus DNA Qual Urine DETECTED( A) Not detected 10/05/2024 12:56 PM EDT [facility] BK Virus DNA Quant PCR Urine 851(H) <125 Copies/mL 10/05/2024 12:56 PM EDT [facility] Log BK Virus DNA, Urine 2.93(H) <2.10 Log (10) Copies/mL 10/05/2024 12:56 PM EDT [facility] Comment: This test utilizes a [...] characteristics of this procedure were determined by [facility]. This test is performed pursuant to a license agreement with [employer] Test performed at [facility], [address], [place] [address] Brittanie Horan MD, PhD - Help Desk Analyst Urine Urinary bladder structure / Unknown Non-blood Collection / Unknown 10/01/2024 1:45 PM EDT 10/02/2024 8:46 AM EDT us Michelle Rucker MD LAB URINE ORDERABLES Fin al Result [facility] [address] [place] [address] documented in this encounter Visit Diagnoses Diagnosis Acute kidney failure, unspecified (CMS/HCC V24) Acute kidney failure, unspecified Other acute kidney failure (CMS/HCC V24) documented in this encounter Additional Health Concerns Infection Onset Date Last Indicated Resolved Time MDRO (other) 12/15/2024 12/15/2024 documented as of this encounter Care Teams Product Management Manager Relationship Specialty Start Date End Date Michelle Rucker MD [address] [place] [phone] PCP - General Family Medicine 05/06/24 documented as of this encounter
--- OUTSIDE RECORDS SUMMARY | 2025-03-15 12:06 | XMS_ITS | Encounter Summary ---
Author Organization [facility] Address [address] [place] [phone] Care Team Providers Care Roll Over Press Operator Name Role Phone Michelle Rucker MD Primary Care Provider + Encounter Details Date Type Department Care Team (Late st Contact Info) Description 09/03/2024 Lab Requisition [facility] - Main Lab 299 [facility] [place] [address] Michelle Rucker MD [address] [address] Type 1 diabetes mellitus with [...] mmol/L LAB CHEMISTRY METHOD 09/03/2024 10:30 AM [facility] Potassium 4.2 3.5 - 5.5 mmol/L LAB CHEMISTRY METHOD 09/03/2024 10:30 AM [facility] Chloride 99 96 - 110 mmol/L LAB CHEMISTRY METHOD 09/03/2024 10:30 AM [facility] CO2 30 21 - 32 mmol/L LAB CHEMISTRY METHOD 09/03/2024 10:30 AM [facility] Anion Gap 7 3 - 11 LAB CHEMISTRY METHOD 09/03/2024 10:30 AM [facility] Glucose 157(H) 70 - 100 mg/dL LAB CHEMISTRY METHOD 09/03/2024 10:30 AM [facility] BUN 37(H) 5 - 25 mg/dL LAB CHEMISTRY METHOD 09/03/2024 10:30 AM [facility] Creatinine 1.36(H) 0.70 - 1.30 mg/dL LAB CHEMISTRY METHOD 09/03/2024 10:30 AM [facility] eGFR 57(L) >=60 mL/min/1. 73m2 LAB CHEMISTRY METHOD 09/03/2024 10:30 AM [facility] Comment:Calculation based on the Chronic Kidney Disease Epidemiology Collaboration (CKD-EPI) equation refit without adjustment for race. BUN/Creatinine Ratio 27.2 LAB CHEMISTRY METHOD 09/03/2024 10:30 AM [facility] Calcium 9.6 8.5 - 10.5 mg/dL LAB CHEMISTRY METHOD 09/03/2024 10:30 AM [facility] Blood Venous blood specimen / Unknown Venipuncture / Unknown 09/03/2024 6:15 AM EDT 09/03/2024 10:24 AM EDT us Michelle Rucker MD LAB BLOOD ORDERABLES Fin al Result [facility] [address] [place] [address], [place] [phone] * (ABNORMAL) Complete blood count (09/03/2024 6:15 AM EDT) [facility] WBC 7.5 4.8 - 10.8 K/mcL LAB HEMETOLOGY METHOD 09/03/2024 10:04 AM EDT [facility] RBC 3.90(L) 4.50 - 5.50 M/mcL LAB HEMETOLOGY METHOD [facility] Hemoglobin 9.9(L) 13.5 - 17.5 g/dL LAB HEMETOLOGY METHOD 09/03/2024 10:04 AM EDT [facility] Hematocrit 30.8(L) 42.0 - 54.0 % LAB HEMETOLOGY METHOD 09/03[facility]24 [facility] MCV 79.6 79.0 - 98.0 FL LAB HEMETOLOGY METHOD 09/03[facility]2024 [facility] MCH 25.6(L) 27.0 - 32.0 pcg LAB HEMETOLOGY METHOD 09/03/2024 10:04 AM EDT [facility] MCHC 32.1 32.0 - 37.0 g/dL LAB HEMETOLOGY METHOD 09/03[facility]2024 [facility] RDW 14.6 11.0 - 15.0 % LAB HEMETOLOGY METHOD 09/03/2024 10:04 AM [facility] Platelets 313 130 - 400 K/mcL LAB HEMETOLOGY METHOD 09/03/2024 10:04 AM EDT [facility] MPV 10.4 7.0 - 11.0 FL LAB HEMETOLOGY METHOD 09/03/2024 10:04 AM EDT [facility] NRBC 0.0 <1.0 % LAB HEMETOLOGY METHOD 09/03/2024 10:04 AM EDT [facility] NRBC Absolute 0.00 <0.10 K/mcL LAB HEMETOLOGY METHOD 09/03/2024 10:04 AM EDT [facility] Blood Venous blood specimen / Unknown Venipuncture / Unknown 09/03/2024 6:15 AM EDT 09/03/2024 10:03 AM EDT Michelle Rucker MD LAB BLOOD ORDERABLES Fin al Result [facility] [address] [place] [address], documented in this encounter Visit Diagnoses Diagnosis Type 1 diabetes mellitus with diabetic neuropathy, unspecified (CMS/HCC V24, CMS/[facility] V28) 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
--- OUTSIDE RECORDS SUMMARY | 2025-03-15 12:06 | XMS_ITS | Encounter Summary ---
Author Organization [facility] Address [address] [place] [phone] Care Team Providers Care Envelope Sealer Name Role Phone Michelle Rucker MD Primary Care Provider + Encounter Details Date Type Department Care Team (Late st Contact Info) Description 10/24/2024 Lab Requisition [facility] - Main Lab 299 [facility] [place] [address] Michelle Rucker MD [address] [address] Kidney transplant status Social History Tobacco Use [...] documented as of this encounter Care Teams Envelope Sealer Relationship Specialty Start Date End Date Michelle Rucker MD [address] [place] [phone] PCP - General Family Medicine 05/06/24 documented as of this encounter
--- OUTSIDE RECORDS SUMMARY | 2025-03-15 12:06 | XMS_ITS | Encounter Summary ---
Author Organization [facility] Address [address] [place] [address] Care Team Providers Care Multimedia Designer Name Role Phone Michelle Rucker MD Primary Care Provider + Encounter Details Date Type Department Care Team (Late st Contact Info) Description 10/29/2024 Lab Requisition [facility] - Main Lab [address] [place] [address] Michelle Rucker MD [address] [phone] Weakness Social History Tobacco Use Types Packs/Day [...] LAB CHEMISTRY METHOD 10/29/2024 11:00 AM EDT [facility] Potassium 4.6 3.5 - 5.5 mmol/L LAB CHEMISTRY METHOD 10/29/2024 11:00 AM EDT [facility] Chloride 106 96 - 110 mmol/L LAB CHEMISTRY METHOD 10/29/2024 11:[address] [facility] CO2 27 21 - 32 mmol/L LAB CHEMISTRY METHOD 10/29/2024 11:[address] [facility] Anion Gap 7 3 - 11 LAB CHEMISTRY METHOD 10/29/2024 11:[address] [facility] Glucose 154(H) 70 - 100 mg/dL LAB CHEMISTRY METHOD 10/29/2024 11:[address] [facility] BUN 34(H) 5 - 25 mg/dL LAB CHEMISTRY METHOD 10/29/2024 11:[address] [facility] Creatinine 2.16(H) 0.70 - 1.30 mg/dL LAB CHEMISTRY METHOD 10/29/2024 11:[address] [facility] eGFR 33(L) >=60 mL/min/1. 73m2 LAB CHEMISTRY METHOD 10/29/2024 11:[address] [facility] Comment:Calculation based on the Chronic Kidney Disease Epidemiology Collaboration (CKD-EPI) equation refit without adjustment for race. BUN/Creatinine Ratio 15.7 LAB CHEMISTRY METHOD 10/29/2024 11:[address] [facility] Calcium 9.1 8.5 - 10.5 mg/dL LAB CHEMISTRY METHOD 10/29/2024 11:[address] [facility] AST (SGOT) 14 10 - 42 unit/L LAB CHEMISTRY METHOD 10/29/2024 11:[address] [facility] ALT (SGPT) 11 10 - 60 unit/L LAB CHEMISTRY METHOD 10/29/2024 11:[address] [facility] Alkaline Phosphatase 58 42 - 121 unit/L LAB CHEMISTRY METHOD 10/29/2024 11:[address] [facility] Total Protein 6.6 6.0 - 8.0 g/dL LAB CHEMISTRY METHOD 10/29/2024 11:[address] [facility] Albumin 2.7(L) 3.2 - 5.0 g/dL LAB CHEMISTRY METHOD 10/29/2024 11:[address] [facility] Total Bilirubin 0.7 0.0 - 1.4 mg/dL LAB CHEMISTRY METHOD 10/29/2024 11:[address] [facility] Blood Venous blood specimen / Unknown Venipuncture / Unknown 10/29/2024 7:50 AM EDT 10/29/2024 9:52 AM EDT us Michelle Rucker MD LAB BLOOD ORDERABLES Fin al Result [facility] [address] [place] [address], * (ABNORMAL) Complete blood count (10/29/2024 7:50 AM EDT) WBC 6.6 4.8 - 10.8 K/mcL LAB HEMETOLOGY METHOD 10/29/2024 10:[address] [facility] RBC 4.40(L) 4.50 - 5.50 M/mcL LAB HEMETOLOGY METHOD 10/29/2024 10:[address] [facility] Hemoglobin 10.7(L) 13.5 - 17.5 g/dL LAB HEMETOLOGY METHOD 10/29/2024 10:[address] [facility] Hematocrit 35.0(L) 42.0 - 54.0 % LAB HEMETOLOGY METHOD 10/29/2024 10:[address] [facility] MCV 79.0 79.0 - 98.0 FL LAB HEMETOLOGY METHOD 10/29/2024 10:[address] [facility] MCH 24.2(L) 27.0 - 32.0 pcg LAB HEMETOLOGY METHOD 10/29/2024 10:[address] [facility] MCHC 30.6(L) 32.0 - 37.0 g/dL LAB HEMETOLOGY METHOD 10/29/2024 10:17 AM EDT [facility] RDW 14.8 11.0 - 15.0 % LAB HEMETOLOGY METHOD 10/29/2024 10:17 AM EDT [facility] Platelets 248 130 - 400 K/mcL LAB HEMETOLOGY METHOD 10/29/2024 10:17 AM EDT [facility] MPV 10.5 7.0 - 11.0 FL LAB HEMETOLOGY METHOD 10/29/2024 10:17 AM EDT [facility] NRBC 0.0 <1.0 % LAB HEMETOLOGY METHOD 10/29/2024 10:17 AM EDT [facility] NRBC Absolute 0.00 <0.10 K/mcL LAB HEMETOLOGY METHOD 10/29/2024 10:17 AM EDT [facility] Blood Venous blood specimen / Unknown Venipuncture / Unknown 10/29/2024 7:50 AM EDT 10/29/2024 9:52 AM EDT Michelle Rucker MD LAB BLOOD ORDERABLES Fin al Result [facility] [address] [place] [address], documented in this encounter Visit Diagnoses Diagnosis Weakness Other malaise and fatigue documented in this encounter Additional Health Concerns Infection Onset Date Last Indicated Resolved Time MDRO (other) 12/15/2024 12/15/2024 documented as of this encounter Care Teams Multimedia Designer Relationship Specialty Start Date End Date Michelle Rucker MD [address] [place] [phone] PCP - General Family Medicine 05/06/24 documented as of this encounter
--- OUTSIDE RECORDS SUMMARY | 2025-03-15 12:06 | XMS_ITS | Encounter Summary ---
Author Organization [facility] Address [address] [address] Phone Care Team Providers Care Hog Raiser Name Role Phone Tennille Linton NP Primary Care Provider + Encounter Details Date Type Department Care Team (Late st Contact Info) Description 03/04/2025 Documentation Only [facility], [address] [place] [address] [place] [address] [place] [phone] Social History Tobacco Use Types Packs/Day [...] Visit [facility] [address] [place] [address] Andrey Phan MD [address] [place] [address] documented as of this encounter Visit Diagnoses Not on filedocumented in this encounter Care Teams Hog Raiser Relationship Specialty Start Date End Date Tennille Linton NP [address] [place] [phone] PCP - General Nurse Practitioner 08/07/23 documented as of this encounter
--- OUTSIDE RECORDS SUMMARY | 2025-03-15 12:06 | XMS_ITS | Encounter Summary ---
Author Organization [facility] Address [address] [place] [address] Care Team Providers Care Combination Machine Tool Setter Name Role Phone Michelle Rucker MD Primary Care Provider + Encounter Details Date Type Department Care Team (Late st Contact Info) Description 10/28/2024 Lab Requisition [facility] - Main Lab 299 [facility] [place] [address] Michelle Rucker MD 8[address] [facility] 1 [place], [place] [phone] Urinary tract infection, site not specified Social [...] * Culture urine (10/28/2024 12:00 AM EDT) [facility] Culture, Urine <10,000 CFU/mL Yeast, insignificant count, no further workup 10/29/2024 10:40 AM [facility] Urine Urine specimen obtained by clean catch procedure / Unknown Non-blood Collection / Unknown 10/28/2024 10/28/2024 12:21 PM EDT us Michelle Rucker MD LAB MICROBIOLOGY - [facility] AL ORDERABLES Final Result [facility] [address] [place] [address], [place] [phone] * (ABNORMAL) Urinalysis with reflex microscopic and culture (10/28/2024 12:00 AM EDT) [facility] Specific [place] Urine 1.010 1.003 - 1.030 LAB URINALYSIS - AUTOMATED METHOD 10/28/2024 12:21 PM [facility] pH, Urine 7.0 5.0 - 8.0 pH LAB URINALYSIS - AUTOMATED METHOD 10/28/2024 12:21 PM [facility] Leukocytes, Urine Large(A) Negative LAB URINALYSIS - AUTOMATED METHOD 10/28/2024 12:21 PM [facility] Nitrite, Urine Negative Negative LAB URINALYSIS - AUTOMATED METHOD 10/28/2024 12:21 PM [facility] Protein, Urine 100(A) <=Trace mg/dL LAB URINALYSIS - AUTOMATED METHOD 10/28/2024 12:21 PM [facility] Glucose, Urine Negative Negative mg/dL LAB URINALYSIS - AUTOMATED METHOD 10/28/2024 12:21 PM [facility] Ketones, Urine Negative Negative mg/dL LAB URINALYSIS - AUTOMATED METHOD 10/28/2024 12:21 PM [facility] Urobilinogen , Urine 0.2 0.2 - 1.0 mg/dL LAB URINALYSIS - AUTOMATED METHOD 10/28/2024 12:21 PM [facility] Bilirubin, Urine Negative Negative LAB URINALYSIS - AUTOMATED METHOD 10/28/2024 12:21 PM [facility] Blood, Urine Moderate(A) Negative LAB URINALYSIS - AUTOMATED METHOD 10/28/2024 12:21 PM [facility] RBC, Urine 2.3 0 - 4 /HPF LAB URINALYSIS - AUTOMATED METHOD 10/28/2024 12:21 PM [facility] WBC, Urine 647.0(H) 0 - 4 /HPF LAB URINALYSIS - AUTOMATED METHOD 10/28/2024 12:21 PM [facility] Squamous Epithelial, Urine 28 0 - 60 /LPF LAB URINALYSIS - AUTOMATED METHOD 10/28/2024 12:21 PM [facility] Bacteria, Urine Few(A) Negative /HPF LAB URINALYSIS - AUTOMATED METHOD 10/28/2024 12:21 PM [facility] Hyaline Casts, Urine 3.2(H) 0 - 3 /LPF LAB URINALYSIS - AUTOMATED METHOD 10/28/2024 12:21 PM [facility] Yeast, Urine Present(A) None /HPF LAB URINALYSIS - AUTOMATED METHOD 10/28/2024 12:21 PM [facility] Urine Urine specimen obtained by clean catch procedure / Unknown Non-blood Collection / Unknown 10/28/2024 10/28/2024 10:05 AM EDT us Michelle Rucker MD LAB URINE ORDERABLES Fin al Result [facility] [address] [place] [address], * Scott urine culture tube (10/28/2024 12:00 AM EDT) Extra Tube Hold for add-ons. 10/28/2024 1:01 PM EDT [facility] Comment:Auto resulted. Urine Urine specimen obtained by clean catch procedure / Unknown Non-blood Collection / Unknown 10/28/2024 10/28/2024 10:05 AM EDT Michelle Rucker MD LAB URINE ORDERABLES Fin al Result [facility] [address] [place] [address], documented in this encounter Visit Diagnoses Diagnosis Urinary tract infection, site not specified documented in this encounter Additional Health Concerns Infection Onset Date Last Indicated Resolved Time MDRO (other) 12/15/2024 12/15/2024 documented as of this encounter Care Teams Combination Machine Tool Setter Relationship Specialty Start Date End Date Michelle Rucker MD [address] [place] [phone] PCP - General Family Medicine 05/06/24 documented as of this encounter
--- OUTSIDE RECORDS SUMMARY | 2025-03-15 12:06 | XMS_ITS | Encounter Summary ---
Author Organization [facility] Address [address] [place] [address] Care Team Providers Care Senior C Developer Name Role Phone Michelle Rucker MD Primary Care Provider + Encounter Details Date Type Department Care Team (Late st Contact Info) Description 08/14/2024 Lab Requisition [facility] - Main Lab [address] [place] [address] Michelle Rucker MD [address] [phone] Diarrhea, unspecified Social History Tobacco Use Types [...] MICROBIOLOGY - GENER AL ORDERABLES Final Result [facility] [address] [place] [address], documented in this encounter Visit Diagnoses Diagnosis Diarrhea, unspecified documented in this encounter Additional Health Concerns Infection Onset Date Last Indicated Resolved Time C. difficile Rule-Out 08/14/2024 08/13/20242024 11:06 AM EST MDRO (other) 12/15/2024 12/15/2024 documented as of this encounter Care Teams Senior C Developer Relationship Specialty Start Date End Date Michelle Rucker MD [address] [place] [phone] PCP - General Family Medicine 05/06/24 documented as of this encounter
--- OUTSIDE RECORDS SUMMARY | 2025-03-15 12:06 | XMS_ITS | Encounter Summary ---
Author Organization [facility] Address [address] [place] [address] Care Team Providers Care Cane Stripper Name Role Phone Elder, Michelle Alonso MD Primary Care Provider + Encounter Details Date Type Department Care Team (Late st Contact Info) Description 11/09/2024 Lab Requisition [facility] - Main Lab 299 [facility] [place] [address] Román Betancur MD [address] [place] [address] Urinary tract infection, site not [...] albicans/du bliniensis( A) 11/11/2024 9:02 AM EDT [facility] Comment: Edited result: Previously reported as Yeast on 11/10/2024 at 1409 EDT. Urine Urine specimen obtained by clean catch procedure / Unknown 11/09/2024 1:00 PM EDT 11/09/2024 6:27 PM EDT us Román Betancur MD LAB MICROBIOLOGY - GENERAL ORD ERABLES Final Result [facility] [address] [place] [address], documented in this encounter Visit Diagnoses Diagnosis Urinary tract infection, site not specified documented in this encounter Additional Health Concerns Infection Onset Date Last Indicated Resolved Time MDRO (other) 12/15/2024 12/15/2024 documented as of this encounter Care Teams Cane Stripper Relationship Specialty Start Date End Date Michelle Rucker MD [address] [place] [phone] PCP - General Family Medicine 05/06/24 documented as of this encounter
--- OUTSIDE RECORDS SUMMARY | 2025-03-15 12:06 | XMS_ITS | Encounter Summary ---
Author Organization [facility] Address [address] [place] [address] Care Team Providers Care Pbx Operator Name Role Phone Michelle Rucker MD Primary Care Provider + Encounter Details Date Type Department Care Team (Late st Contact Info) Description 10/06/2024 Lab Requisition [facility] - Main Lab 299 [facility] [place] [address] Michelle Rucker MD [address] [address] Other transplanted organ and tissue [...] developed and the performance characteristics determined by [facility]. This confirmation testing has not been cleared or approved by the FDA. The laboratory is regulated under CLIA as qualified to perform high-complexity testing. This test is used for patient testing purposes. It should not be regarded as investigational or for research. Test performed at [facility], [address], [place] [address] Brittanie Horan MD, PhD - Theatre Director Blood Venous blood specimen / Unknown Venipuncture / Unknown 10/06/2024 7:06 AM EDT 10/06/2024 10:10 AM EDT Michelle Rucker MD LAB BLOOD ORDERABLES Fin al Result [facility] [address] [place] [address] documented in this encounter Visit Diagnoses Diagnosis Other transplanted organ and tissue status documented in this encounter Additional Health Concerns Infection Onset Date Last Indicated Resolved Time MDRO (other) 12/15/2024 12/15/2024 documented as of this encounter Care Teams Pbx Operator Relationship Specialty Start Date End Date Michelle Rucker MD [address] [address] PCP - General Family Medicine 05/06/24 documented as of this encounter
--- OUTSIDE RECORDS SUMMARY | 2025-03-15 12:06 | XMS_ITS | Encounter Summary ---
Author Organization [facility] Address [address] [place] [address] Care Team Providers Care Police Liaison Name Role Phone Michelle Rucker MD Primary Care Provider + Encounter Details Date Type Department Care Team (Late st Contact Info) Description 10/26/2024 Lab Requisition [facility] - Main Lab 299 [facility] [place] [address] Michelle Rucker MD [address] [address] Kidney transplant status Social History [...] developed and the performance characteristics determined by [facility]. This confirmation testing has not been cleared or approved by the FDA. The laboratory is regulated under CLIA as qualified to perform high-complexity testing. This test is used for patient testing purposes. It should not be regarded as investigational or for research. Test performed at [facility], [address], [place] [address] Brittanie Horan MD, PhD - Marketing Programs Manager Blood Venous blood specimen / Unknown Venipuncture / Unknown 10/27/2024 8:34 AM EDT 10/27/2024 9:32 AM EDT Michelle Rucker MD LAB BLOOD ORDERABLES Fin al Result [facility] [address] [place] [address] documented in this encounter Visit Diagnoses Diagnosis Kidney transplant status documented in this encounter Additional Health Concerns Infection Onset Date Last Indicated Resolved Time MDRO (other) 12/15/2024 12/15/2024 documented as of this encounter Care Teams Police Liaison Relationship Specialty Start Date End Date Michelle Rucker MD [address] [place] [phone] PCP - General Family Medicine 05/06/24 documented as of this encounter
--- OUTSIDE RECORDS SUMMARY | 2025-03-15 12:06 | XMS_ITS | Encounter Summary ---
Author Organization [facility] Address [address] [place] [phone] Care Team Providers Care Sheeting Puller Name Role Phone Michelle Rucker MD Primary Care Provider + Encounter Details Date Type Department Care Team (Late st Contact Info) Description 09/25/2024 Lab Requisition [facility] - Main Lab 299 [facility] [place] [address] Michelle Rucker MD [address] [place] [address] Malignant (primary) neoplasm, unspecified (CMS/HCC V24, CMS/HCC [...] documented as of this encounter Care Teams Sheeting Puller Relationship Specialty Start Date End Date Michelle Rucker MD [address] [place] [phone] PCP - General Family Medicine 05/06/24 documented as of this encounter
--- OUTSIDE RECORDS SUMMARY | 2025-03-15 12:06 | XMS_ITS | Encounter Summary ---
Author Organization [facility] Address [address] [place] [phone] Care Team Providers Care Environmental Law Professor Name Role Phone Michelle Rucker MD Primary Care Provider + Encounter Details Date Type Department Care Team (Late st Contact Info) Description 09/08/2024 Lab Requisition [facility] - Main Lab 299 [facility] [place] [address] Michelle Rucker MD [address] [address] Other halfway (current) drug therapy; Benign prostatic hyperplasia without [...] Routine 09/08/2024 7:02 AM EDT Other termite helper (current) drug therapy Benign prostatic hyperplasia without [...] developed and the performance characteristics determined by [facility]. This confirmation testing has not been cleared or approved by the FDA. The laboratory is regulated under CLIA as qualified to perform high-complexity testing. This test is used for patient testing purposes. It should not be regarded as investigational or for research. Test performed at [facility], [address], [place] [address] Brittanie Horan MD, PhD - Drying Machine Receiver Blood Venous blood specimen / Unknown Venipuncture / Unknown 09/08/2024 7:02 AM EDT 09/08/2024 9:18 AM EDT Michelle Rucker MD LAB BLOOD ORDERABLES Fin al Result [facility] [address] [place] [address] documented in this encounter Visit Diagnoses Diagnosis Other termite helper (current) drug therapy Benign prostatic hyperplasia without lower urinary tract symptoms documented in this encounter Additional Health Concerns Infection Onset Date Last Indicated Resolved Time MDRO (other) 12/15/2024 12/15/2024 documented as of this encounter Care Teams Environmental Law Professor Relationship Specialty Start Date End Date Michelle Rucker MD [address] [place] [address] PCP - General Family Medicine 05/06/24 documented as of this encounter
--- OUTSIDE RECORDS SUMMARY | 2025-03-15 12:06 | XMS_ITS | Encounter Summary ---
Author Organization [facility] Address [address] [place] [phone] Care Team Providers Care Welt Edge Rounder Name Role Phone Michelle Rucker MD Primary Care Provider + Encounter Details Date Type Department Care Team (Late st Contact Info) Description 08/26/[address] [facility] 299 [facility] [place] [address] Michelle Rucker MD [address] [address] Type 1 diabetes mellitus with [...] performance characteristics determined by [facility]. This confirmation testing has not been cleared or approved by the FDA. The laboratory is regulated under CLIA as qualified to perform high-complexity testing. This test is used for patient testing purposes. It should not be regarded as investigational or for research. Test performed at [facility], [address] , [place] [address] Brittanie Horan MD, PhD - Sofa Cover Inspector Blood Venous blood specimen / Unknown Venipuncture / Unknown 08/27/2024 6:26 AM EST 08/27/2024 8:10 AM EST us Michelle Rucker MD LAB BLOOD ORDERABLES Fin al Result [facility] [address] [place] [address] * (ABNORMAL) Basic metabolic panel (08/27/2024 6:26 AM EST) Sodium 132(L) 133 - 145 mmol/L LAB CHEMISTRY METHOD 08/27/2024 9:15 AM [facility] Potassium 4.2 3.5 - 5.5 mmol/L LAB CHEMISTRY METHOD 08/27/2024 9:15 AM [facility] Chloride 98 96 - 110 mmol/L LAB CHEMISTRY METHOD 08/27/2024 9:15 AM [facility] CO2 26 21 - 32 mmol/L LAB CHEMISTRY METHOD 08/27/2024 9:15 AM [facility] Anion Gap 8 3 - 11 LAB CHEMISTRY METHOD 08/27/2024 9:15 AM [facility] Glucose 282(H) 70 - 100 mg/dL LAB CHEMISTRY METHOD 08/27/2024 9:15 AM [facility] BUN 29(H) 5 - 25 mg/dL LAB CHEMISTRY METHOD 08/27/2024 9:15 AM [facility] Creatinine 1.29 0.70 - 1.30 mg/dL LAB CHEMISTRY METHOD 08/27/2024 9:15 AM [facility] eGFR 61 >=60 mL/min/1. 73m2 LAB CHEMISTRY METHOD 08/27/2024 9:15 AM [facility] Comment:Calculation based on the Chronic Kidney Disease Epidemiology Collaboration (CKD-EPI) equation refit without adjustment for race. BUN/Creatinine Ratio 22.5 LAB CHEMISTRY METHOD 08/27/2024 9:15 AM [facility] Calcium 9.8 8.5 - 10.5 mg/dL LAB CHEMISTRY METHOD 08/27/2024 9:15 AM [facility] Blood Venous blood specimen / Unknown Venipuncture / Unknown 08/27/2024 6:26 AM EST 08/27/2024 8:10 AM EST us Michelle Rucker MD LAB BLOOD ORDERABLES Fin al Result [facility] [address] [place] [address], * (ABNORMAL) Complete blood count (08/27/2024 6:26 AM EST) [facility] WBC 9.7 4.8 - 10.8 K/mcL LAB HEMETOLOGY METHOD 08/27/2024 8:48 AM [facility] RBC 4.00(L) 4.50 - 5.50 M/mcL LAB HEMETOLOGY METHOD 08/27/2024 8:48 AM [facility] Hemoglobin 10.1(L) 13.5 - 17.5 g/dL LAB HEMETOLOGY METHOD 08/27/2024 8:48 AM [facility] Hematocrit 31.6(L) 42.0 - 54.0 % LAB HEMETOLOGY METHOD 08/27/2024 8:48 AM [facility] MCV 79.8 79.0 - 98.0 FL LAB HEMETOLOGY METHOD 08/27/2024 8:48 AM [facility] MCH 25.5(L) 27.0 - 32.0 pcg LAB HEMETOLOGY METHOD 08/27/2024 8:48 AM [facility] MCHC 32.0 32.0 - 37.0 g/dL LAB HEMETOLOGY METHOD 08/27/2024 8:48 AM [facility] RDW 15.0 11.0 - 15.0 % LAB HEMETOLOGY METHOD 08/27/2024 8:48 AM [facility] Platelets 348 130 - 400 K/mcL LAB HEMETOLOGY METHOD 08/27/2024 8:48 AM [facility] MPV 10.1 7.0 - 11.0 FL LAB HEMETOLOGY METHOD 08/27/2024 8:48 AM [facility] NRBC 0.0 <1.0 % LAB HEMETOLOGY METHOD 08/27/2024 8:48 AM EST [facility] NRBC Absolute 0.00 <0.10 K/mcL LAB HEMETOLOGY METHOD 08/27/2024 8:48 AM EST [facility] Blood Venous blood specimen / Unknown Venipuncture / Unknown 08/27/2024 6:26 AM EST 08/27/2024 8:10 AM EST us Michelle Rucker MD LAB BLOOD ORDERABLES Fin al Result [facility] [address] [place] [address], documented in this encounter Visit Diagnoses Diagnosis Type 1 diabetes mellitus with diabetic neuropathy, unspecified ([facility] V24, [facility] V28) 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
--- OUTSIDE RECORDS SUMMARY | 2025-03-15 12:06 | XMS_ITS | Encounter Summary ---
Author Organization [facility] Address [address] [place] [phone] Care Team Providers Care Database Design Analyst Name Role Phone Michelle Rucker MD Primary Care Provider + Encounter Details Date Type Department Care Team (Late st Contact Info) Description 10/02/2024 Lab Requisition [facility] - Main Lab 299 [facility] [place] [address] Michelle Rucker MD [address] [phone] Immunodeficiency, unspecified (CMS/[facility] V24) Social History Tobacco Use Types [...] Routine 10/02/2024 6:50 AM EDT Immunodeficiency, unspecified ([facility] V24) CREATINE KINASE Routine 10/02/2024 6:50 AM EDT Immunodeficiency, unspecified ([facility] V24) RENAL FUNCTION PANEL Routine 10/02/2024 6:50 AM EDT Immunodeficiency, unspecified ([facility] V24) COMPREHENSIVE METABOLIC PANEL Routine 10/02/2024 6:50 AM EDT Immunodeficiency, unspecified ([facility] V24) documented in this encounter Results * (ABNORMAL) CBC auto differential (10/02/2024 6:50 AM EDT) [facility] Signature WBC 6.1 4.8 - 10.8 K/mcL LAB HEMETOLOGY METHOD 10/02/2024 9:04 AM [facility] RBC 4.20(L) 4.50 - 5.50 M/mcL LAB HEMETOLOGY METHOD 10/02/2024 9:04 AM [facility] Hemoglobin 10.4(L) 13.5 - 17.5 g/dL LAB HEMETOLOGY METHOD 10/02/2024 9:04 AM [facility] Hematocrit 33.7(L) 42.0 - 54.0 % LAB HEMETOLOGY METHOD 10/02/2024 9:04 AM [facility] MCV 80.8 79.0 - 98.0 FL LAB HEMETOLOGY METHOD 10/02/2024 9:04 AM [facility] MCH 24.9(L) 27.0 - 32.0 pcg LAB HEMETOLOGY METHOD 10/02/2024 9:04 AM [facility] MCHC 30.9(L) 32.0 - 37.0 g/dL LAB HEMETOLOGY METHOD 10/02/2024 9:04 AM [facility] RDW 14.6 11.0 - 15.0 % LAB HEMETOLOGY METHOD 10/02/2024 9:04 AM [facility] Platelets 270 130 - 400 K/mcL LAB HEMETOLOGY METHOD 10/02/2024 9:04 AM [facility] MPV 10.7 7.0 - 11.0 FL LAB HEMETOLOGY METHOD 10/02/2024 9:04 AM [facility] NRBC 0.0 <1.0 % LAB HEMETOLOGY METHOD 10/02/2024 9:04 AM [facility] NRBC Absolute 0.00 <0.10 K/mcL LAB HEMETOLOGY METHOD 10/02/2024 9:04 AM [facility] Neutrophils Relative 67.4 % LAB HEMETOLOGY METHOD 10/02/2024 9:04 AM [facility] Lymphocytes Relative 16.7 % LAB HEMETOLOGY METHOD 10/02/2024 9:04 AM [facility] Monocytes Relative 11.6 % LAB HEMETOLOGY METHOD 10/02/2024 9:04 AM [facility] Eosinophils Relative 3.3 % LAB HEMETOLOGY METHOD 10/02/2024 9:04 AM [facility] Basophils Relative 0.7 % LAB HEMETOLOGY METHOD 10/02/2024 9:04 AM [facility] Immature Granulocytes Relative 0.3 % LAB HEMETOLOGY METHOD 10/02/2024 9:04 AM [facility] Neutrophils Absolute 4.13 1.50 - 7.00 K/mcL LAB HEMETOLOGY METHOD 10/02/2024 9:04 AM [facility] Lymphocytes Absolute 1.02 1.00 - 5.00 K/mcL LAB HEMETOLOGY METHOD 10/02/2024 9:04 AM [facility] Monocytes Absolute 0.71 0.20 - 1.00 K/mcL LAB HEMETOLOGY METHOD 10/02/2024 9:04 AM EDT [facility] Eosinophils Absolute 0.20 0.00 - 0.50 K/[facility] LAB HEMETOLOGY METHOD 10/02/2024 9:04 AM EDT [facility] Basophils Absolute 0.04 0.00 - 0.20 K/[facility] LAB HEMETOLOGY METHOD 10/02/2024 9:04 AM EDT [facility] Immature Granulocytes Absolute 0.02 0.00 - 0.03 K/[facility] LAB HEMETOLOGY METHOD 10/02/2024 9:04 AM EDT [facility] Blood Venous blood specimen / Unknown Venipuncture / Unknown 10/02/2024 6:50 AM EDT 10/02/2024 8:49 AM EDT Michelle Rucker MD LAB BLOOD ORDERABLES Fin al Result Performing Organization Address City/[facility]/ZIP Co de Phone Number [facility] [address] [place] [address], [place] [phone] * Parathyroid hormone intact (10/02/2024 6:50 AM EDT) [facility] PTH 45.7 18.5 - 88.0 pcg/mL LAB CHEMISTRY METHOD 10/02/2024 10:52 AM EDT [facility] Blood Venous blood specimen / Unknown Venipuncture / Unknown 10/02/2024 6:50 AM EDT 10/02/2024 8:49 AM EDT Michelle Rucker MD LAB BLOOD ORDERABLES Fin al Result [facility] [address] [place] [address], [place] [phone] * BK virus molecular study quantitative (10/02/2024 6:50 AM EDT) [facility] BK Virus DNA Qual Plasma Not detected Not detected 10/05/2024 12:56 PM EDT [facility] BK Virus DNA Quant Plasma <125 <125 Copies/mL 10/05/2024 12:56 PM EDT [facility] Log BK Virus DNA, Plasma <2.10 <2.10 Log (10) Copies/mL 10/05/2024 12:56 PM EDT [facility] Comment: This test utilizes a polymerase [...] characteristics of this procedure were determined by [facility]. This test is performed pursuant to a license agreement with [employer] Test performed at [facility], [address] , [place], [place] [id number] Brittanie Horan MD, PhD - Vocational Auto Body Instructor Blood Venous blood specimen / Unknown Venipuncture / Unknown 10/02/2024 6:50 AM EDT 10/02/2024 8:49 AM EDT us Michelle Rucker MD LAB BLOOD ORDERABLES Fin al Result [facility] [address] [place] [address] * (ABNORMAL) Hemoglobin A1c (10/02/2024 6:50 AM EDT) [facility] Hemoglobin A1C 7.3(H) <6.5 % LAB [...] ORDERABLES Fin al Result Performing Organization Address [facility]/ZIP Co de Phone Number [facility] [address] [place] [address], [place] [phone] * Creatine kinase (10/02/2024 6:50 AM EDT) [facility] Total CK 27 22 - 269 unit/L LAB CHEMISTRY METHOD 10/02/2024 9:31 AM EDT [facility] Blood Venous blood specimen / Unknown Venipuncture / Unknown 10/02/2024 6:50 AM EDT 10/02/2024 8:49 AM EDT Michelle Rucker MD LAB BLOOD ORDERABLES Fin al Result Performing Organization Address [facility] de Phone Number [facility] [address] [place] [address], [place] [phone] * (ABNORMAL) Renal function panel (10/02/2024 6:50 AM EDT) [facility] Sodium 139 133 - 145 mmol/L LAB CHEMISTRY METHOD 10/02/2024 9:31 AM EDT [facility] Potassium 4.5 3.5 - 5.5 mmol/L LAB CHEMISTRY METHOD 10/02/2024 9:31 AM EDT [facility] Chloride 105 96 - 110 mmol/L LAB CHEMISTRY METHOD 10/02/2024 9:31 AM EDT [facility] CO2 30 21 - 32 mmol/L LAB CHEMISTRY METHOD 10/02/2024 9:31 AM [facility] Anion Gap 4 3 - 11 LAB CHEMISTRY METHOD 10/02/2024 9:31 AM [facility] Glucose 129(H) 70 - 100 mg/dL LAB CHEMISTRY METHOD 10/02/2024 9:31 AM [facility] BUN 32(H) 5 - 25 mg/dL LAB CHEMISTRY METHOD 10/02/2024 9:31 AM [facility] Creatinine 1.26 0.70 - 1.30 mg/dL LAB CHEMISTRY METHOD 10/02/2024 9:31 AM [facility] eGFR 63 >=60 mL/min/1. 73m2 LAB CHEMISTRY METHOD 10/02/2024 9:31 AM [facility] Comment: Calculation based on the Chronic Kidney Disease Epidemiology Collaboration (CKD-EPI) equation refit without adjustment for race. Calculation based on the Chronic Kidney Disease Epidemiology Collaboration (CKD-EPI) equation refit without adjustment for race. BUN/Creatinine Ratio 25.4 LAB CHEMISTRY METHOD 10/02/2024 9:31 AM [facility] Albumin 2.6(L) 3.2 - 5.0 g/dL LAB CHEMISTRY METHOD 10/02/2024 9:31 AM [facility] Calcium 9.6 8.5 - 10.5 mg/dL LAB CHEMISTRY METHOD 10/02/2024 9:31 AM [facility] Phosphorus 3.5 2.5 - 4.5 mg/dL LAB CHEMISTRY METHOD 10/02/2024 9:31 AM [facility] Blood Venous blood specimen / Unknown Venipuncture / Unknown 10/02/2024 6:50 AM EDT 10/02/2024 8:49 AM EDT us Michelle Rucker MD LAB BLOOD ORDERABLES Fin al Result [facility] [address] [place] [address], * (ABNORMAL) Comprehensive metabolic panel (10/02/2024 6:50 AM EDT) [facility] Signature Sodium 139 133 - 145 mmol/L LAB CHEMISTRY METHOD 10/02/2024 9:31 AM [facility] Potassium 4.5 3.5 - 5.5 mmol/L LAB CHEMISTRY METHOD 10/02/2024 9:31 AM [facility] Chloride 105 96 - 110 mmol/L LAB CHEMISTRY METHOD 10/02/2024 9:31 AM [facility] CO2 30 21 - 32 mmol/L LAB CHEMISTRY METHOD 10/02/2024 9:31 AM [facility] Anion Gap 4 3 - 11 LAB CHEMISTRY METHOD 10/02/2024 9:31 AM [facility] Glucose 129(H) 70 - 100 mg/dL LAB CHEMISTRY METHOD 10/02/2024 9:31 AM [facility] BUN 32(H) 5 - 25 mg/dL LAB CHEMISTRY METHOD 10/02/2024 9:31 AM [facility] Creatinine 1.26 0.70 - 1.30 mg/dL LAB CHEMISTRY METHOD 10/02/2024 9:31 AM [facility] eGFR 63 >=60 mL/min/1. 73m2 LAB CHEMISTRY METHOD 10/02/2024 9:31 AM [facility] Comment:Calculation based on the Chronic Kidney Disease Epidemiology Collaboration (CKD-EPI) equation refit without adjustment for race. BUN/Creatinine Ratio 25.4 LAB CHEMISTRY METHOD 10/02/2024 9:31 AM [facility] Calcium 9.6 8.5 - 10.5 mg/dL LAB CHEMISTRY METHOD 10/02/2024 9:31 AM [facility] AST (SGOT) 14 10 - 42 unit/L LAB CHEMISTRY METHOD 10/02/2024 9:31 AM EDT [facility] ALT (SGPT) 10 10 - 60 unit/L LAB CHEMISTRY METHOD 10/02/2024 9:31 AM EDT [facility] Alkaline Phosphatase 70 42 - 121 unit/L LAB CHEMISTRY METHOD 10/02/2024 9:31 AM EDT [facility] Total Protein 6.8 6.0 - 8.0 g/dL LAB CHEMISTRY METHOD 10/02/2024 9:31 AM EDT [facility] Albumin 2.6(L) 3.2 - 5.0 g/dL LAB CHEMISTRY METHOD 10/02/2024 9:31 AM EDT [facility] Total Bilirubin 0.3 0.0 - 1.4 mg/dL LAB CHEMISTRY METHOD 10/02/2024 9:31 AM EDT [facility] Blood Venous blood specimen / Unknown Venipuncture / Unknown 10/02/2024 6:50 AM EDT 10/02/2024 8:49 AM EDT us Michelle Rucker MD LAB BLOOD ORDERABLES Fin al Result [facility] [address] [place] [address], documented in this encounter Visit Diagnoses Diagnosis Immunodeficiency, unspecified (CMS/HCC V24) documented in this encounter Additional Health Concerns Infection Onset Date Last Indicated Resolved Time MDRO (other) 12/15/2024 12/15/2024 documented as of this encounter Care Teams Database Design Analyst Relationship Specialty Start Date End Date Michelle Rucker MD [address] [place] [phone] PCP - General Family Medicine 05/06/24 documented as of this encounter
--- OUTSIDE RECORDS SUMMARY | 2025-03-15 12:06 | XMS_ITS | Encounter Summary ---
Author Organization [facility] Address [address] [place] [phone] Phone Care Team Providers Care Development Analyst Name Role Phone Ebony Lintonher Sloane NATHAN Primary Care Provider + Encounter Details Date Type Department Care Team (Late st Contact Info) Description 03/05/2025 Documentation Only [facility] [address] [place] [address] [place] [address] [place] [phone] Social History Tobacco Use Types Packs/Day [...] Visit [facility] [address] [place] [address] Andrey Phan MD [address] [place] [address] documented as of this encounter Visit Diagnoses Not on filedocumented in this encounter Care Teams Development Analyst Relationship Specialty Start Date End Date Tennille Linton NP [address] [place] [phone] PCP - General Nurse Practitioner 08/07/23 documented as of this encounter
[2025-03-16 05:24] LABS: Tacrolimus Prograf 5.3 mcg/L
== END 2025-03-15 09:13 | disposition home or self-care (01) ==
LOC: HO.HVNA 09:12
PROVIDERS: Visit Provider Internal Medicine Nephrology
DX: Z51.81 Encounter for therapeutic drug level monitoring (principal); N18.32 Chronic kidney disease, stage 3b; Z92.25 Personal history of immunosuppression therapy; Z94.0 Kidney transplant status
CPT/HCPCS: 36415; 80197

== ENCOUNTER 2025-04-16 10:02 | Outpatient (REF) | payer OTHER, SELFPAY ==
[2025-04-16 10:43] LABS: Hemoglobin A1C 149.8227 umol/L
--- OUTSIDE RECORDS SUMMARY | 2025-04-16 11:22 | XMS_ITS | Encounter Summary ---
Author Organization [facility] Address [address] [place] [phone] Care Team Providers Care Rug Inspector Helper Name Role Phone Michelle Rucker MD Primary Care Provider + Encounter Details Date Type Department Care Team (Late st Contact Info) Description 05/15/2024 Lab Requisition [facility] - Main Lab 299 [facility] [place] [address] Michelle Rucker MD [address] [place] [address] Kidney transplant status; Squamous cell carcinoma of [...] documented as of this encounter Care Teams Rug Inspector Helper Relationship Specialty Start Date End Date Michelle Rucker MD [address] [place] [phone] PCP - General Family Medicine 05/06/24 documented as of this encounter
--- OUTSIDE RECORDS SUMMARY | 2025-04-16 11:22 | XMS_ITS | Encounter Summary ---
Author Organization [facility] Address [address] [place] [address] Care Team Providers Care Beef Cattle Specialist Name Role Phone Michelle Rucker MD Primary Care Provider + Encounter Details Date Type Department Care Team (Late st Contact Info) Description 04/29/2024 Lab Requisition [facility] - Main Lab 299 [place] [address] Michelle Rucker MD 819 [facility] 1 [place], [place] [phone] Urinary tract infection, site not specified Social [...] and culture (04/29/2024 8:00 AM EST) Specific [place] Urine 1.012 1.003 - 1.030 LAB URINALYSIS - AUTOMATED METHOD 04/29/2024 2:52 PM [facility] pH, Urine 6.0 5.0 - 8.0 pH LAB URINALYSIS - AUTOMATED METHOD 04/29/2024 2:52 PM [facility] Leukocytes, Urine Trace(A) Negative LAB URINALYSIS - AUTOMATED METHOD 04/29/2024 2:52 PM [facility] Nitrite, Urine Negative Negative LAB URINALYSIS - AUTOMATED METHOD 04/29/2024 2:52 PM [facility] Protein, Urine Trace <=Trace mg/dL LAB URINALYSIS - AUTOMATED METHOD 04/29/2024 2:52 PM [facility] Glucose, Urine 250(A) Negative mg/dL LAB URINALYSIS - AUTOMATED METHOD 04/29/2024 2:52 PM [facility] Ketones, Urine Negative Negative mg/dL LAB URINALYSIS - AUTOMATED METHOD 04/29/2024 2:52 PM [facility] Urobilinogen, Urine 0.2 0.2 - 1.0 mg/dL LAB URINALYSIS - AUTOMATED METHOD 04/29/2024 2:52 PM [facility] Bilirubin, Urine Negative Negative LAB URINALYSIS - AUTOMATED METHOD 04/29/2024 2:52 PM [facility] Blood, Urine Negative Negative LAB URINALYSIS - AUTOMATED METHOD 04/29/2024 2:52 PM [facility] RBC, Urine 2.3 0 - 4 /HPF LAB URINALYSIS - AUTOMATED METHOD 04/29/2024 2:52 PM [facility] WBC, Urine 2.8 0 - 4 /HPF LAB URINALYSIS - AUTOMATED METHOD 04/29/2024 2:52 PM [facility] Squamous Epithelial, Urine 6 0 - 60 /LPF LAB URINALYSIS - AUTOMATED METHOD 04/29/2024 2:52 PM [facility] Bacteria, Urine Negative Negative /HPF LAB URINALYSIS - AUTOMATED METHOD 04/29/2024 2:52 PM EST [facility] Hyaline Casts, Urine 0.0 0 - 3 /LPF LAB URINALYSIS - AUTOMATED METHOD 04/29/2024 2:52 PM EST [facility] Urine Urine specimen obtained by clean catch procedure / Unknown 04/29/2024 8:00 AM EST 04/29/2024 2:32 PM EST Michelle Rucker MD LAB URINE ORDERABLES Fin al Result Performing Organization Address [facility] Co de Phone Number [facility] [address] [place] [address], [place] [phone] * (ABNORMAL) Culture urine (04/29/2024 8:00 AM EST) Culture, Urine 10,000-49,0 00 CFU/mL Yolande albicans/du bliniensis( A) 05/01/2024 2:22 PM EST [facility] Comment: The organism value for this result has been updated. These results have been appended to the previously preliminary verified report. Urine Urine specimen obtained by clean catch procedure / Unknown 04/29/2024 8:00 AM EST 04/29/2024 2:32 PM EST Michelle Rucker MD LAB MICROBIOLOGY - GENER AL ORDERABLES Final Result Performing Organization Address [facility]/ZIP Co de Phone Number [facility] [address] [place] [address], [place] [phone] documented in this encounter Visit Diagnoses Diagnosis Urinary tract infection, site not specified documented in this encounter Additional Health Concerns Infection Onset Date Last Indicated Resolved Time C. difficile Rule-Out 08/14/2024 08/13/20242024 11:06 AM EST MDRO (other) 12/15/2024 12/15/2024 documented as of this encounter Care Teams Beef Cattle Specialist Relationship Specialty Start Date End Date Michelle Rucker MD [address] [phone] PCP - General Family Medicine 05/06/24 documented as of this encounter
--- OUTSIDE RECORDS SUMMARY | 2025-04-16 11:22 | XMS_ITS | Encounter Summary ---
Author Organization [facility] Address [address] [place] [phone] Care Team Providers Care Hunter Trapper Name Role Phone Michelle Rucker MD Primary Care Provider + Encounter Details Date Type Department Care Team (Late st Contact Info) Description 05/06/2024 Lab Requisition [facility] - Main Lab 299 [facility] [place] [address] Michelle Rucker MD [address] [address] Heart failure, unspecified (CMS/HCC V24, [...] the performance characteristics determined by [facility]. This confirmation testing has not been cleared or approved by the FDA. The laboratory is regulated under CLIA as qualified to perform high-complexity testing. This test is used for patient testing purposes. It should not be regarded as investigational or for research. Test performed at [facility], [address], [place], [place] [phone] Brittanie Horan MD, PhD - Automatic Clipper And Stripper Blood Venous blood specimen / Unknown Venipuncture / Unknown 05/06/2024 6:56 AM EST 05/06/2024 9:44 AM EST us Michelle Rucker MD LAB BLOOD ORDERABLES Fin al Result [facility] [address] [place], [place] [phone] * (ABNORMAL) Comprehensive metabolic panel (05/06/2024 6:56 AM EST) Sodium 137 133 - 145 mmol/L LAB CHEMISTRY METHOD 05/06/2024 12:15 PM EST [facility] ([facility] Potassium 4.6 3.5 - 5.5 [...] LAB CHEMISTRY METHOD 05/06/2024 12:15 PM EST [facility] Albumin 3.3 3.2 - 5.0 [...] Fin al Result [facility] [address] [place] [address], * (ABNORMAL) Complete blood count (05/06/2024 6:56 AM EST) WBC 13.5(H) 4.8 - 10.8 K/mcL LAB HEMETOLOGY METHOD 05/06/2024 11:34 AM [facility] RBC 4.50 4.50 - 5.50 M/[facility] LAB HEMETOLOGY METHOD 05/06/2024 11:34 AM [facility] [...] LAB HEMETOLOGY METHOD 05/06/2024 11:34 AM EST [facility] MCHC 32.8 32.0 - 37.0 [...] Fin al Result [facility] [address] [place] [address], documented in this encounter Visit Diagnoses Diagnosis [...] documented as of this encounter Care Teams Hunter Trapper Relationship Specialty Start Date End Date Michelle Rucker MD [address] [phone] PCP - General Family Medicine 05/06/24 documented as of this encounter
--- OUTSIDE RECORDS SUMMARY | 2025-04-16 11:22 | XMS_ITS | Encounter Summary ---
Author Organization [facility] Address [address] [place] [address] Care Team Providers Care Gear Finisher Name Role Phone Elder, Michelle Alonso MD Primary Care Provider + Encounter Details Date Type Department Care Team (Late st Contact Info) Description 12/15/2024 Lab Requisition [facility] - Main Lab 299 [facility] [place] [address] Harshad Thornton, PA [address] [place], [place] [phone] Urinary tract infection, site not specified Social [...] Pseudomonas aeruginosa(A) YENNIFER 12/18/2024 10:25 AM EDT [facility] ([facility] Comment: This is an edited [...] Susceptible Pseudomonas aeruginosa Cefepime DISK DIFFUSION Susceptible [facility] MICROBIOLOGY - [facility] KEIRY LEACH Final Result [facility] ([facility]) [facility] [address] [place] [address], documented in this encounter Visit Diagnoses Diagnosis Urinary tract infection, site not specified documented in this encounter Additional Health Concerns Infection Onset Date Last Indicated Resolved Time MDRO (other) 12/15/2024 12/15/2024 documented as of this encounter Care Teams Gear Finisher Relationship Specialty Start Date End Date Michelle Rucker MD [address] [place] [phone] PCP - General Family Medicine 05/06/24 documented as of this encounter
--- OUTSIDE RECORDS SUMMARY | 2025-04-16 11:22 | XMS_ITS | Encounter Summary ---
Author Organization [facility] Address [address] [place] [address] Care Team Providers Care Food Service Worker Name Role Phone Michelle Rucker MD Primary Care Provider + Encounter Details Date Type Department Care Team (Late st Contact Info) Description 05/18/2024 Lab Requisition [facility] - Main Lab 299 [facility] [place] [address] Michelle Rucker MD [address] [phone] Kidney transplant status; Squamous cell carcinoma of [...] developed and the performance characteristics determined by [facility]. This confirmation testing has not been cleared or approved by the FDA. The laboratory is regulated under CLIA as qualified to perform high-complexity testing. This test is used for patient testing purposes. It should not be regarded as investigational or for research. Test performed at [facility], [address], [place] [address] Brittanie Horan MD, PhD - Cleaner Furniture Blood Venous blood specimen / Unknown Venipuncture / Unknown 05/19/2024 5:08 AM EST 05/19/2024 9:54 AM EST Michelle Rucker MD LAB BLOOD ORDERABLES Fin al Result [facility] [address] [place] [address] * (ABNORMAL) Comprehensive metabolic panel (05/19/2024 5:08 AM EST) Sodium 141 133 - 145 mmol/L LAB CHEMISTRY METHOD 05/19/2024 10:42 AM EST [facility] Potassium 4.9 3.5 - 5.5 mmol/L LAB CHEMISTRY METHOD 05/19/2024 10:42 AM EST [facility] Chloride 109 96 - 110 mmol/L LAB CHEMISTRY METHOD 05/19/2024 10:42 AM EST [facility] CO2 26 21 - 32 mmol/L LAB CHEMISTRY METHOD 05/19/2024 10:42 AM [facility] Anion Gap 6 3 - 11 LAB CHEMISTRY METHOD 05/19/2024 10:42 AM [facility] Glucose 115(H) 70 - 100 mg/dL LAB CHEMISTRY METHOD 05/19/2024 10:42 AM [facility] BUN 28(H) 5 - 25 mg/dL LAB CHEMISTRY METHOD 05/19/2024 10:42 AM [facility] Creatinine 2.12(H) 0.70 - 1.30 mg/dL LAB CHEMISTRY METHOD 05/19/2024 10:42 AM [facility] eGFR 34(L) >=60 mL/min/1. 73m2 LAB CHEMISTRY METHOD 05/19/2024 10:42 AM [facility] Comment:Calculation based on the Chronic Kidney Disease Epidemiology Collaboration (CKD-EPI) equation refit without adjustment for race. BUN/Creatinine Ratio 13.2 LAB CHEMISTRY METHOD 05/19/2024 10:42 AM [facility] Calcium 9.6 8.5 - 10.5 mg/dL LAB CHEMISTRY METHOD 05/19/2024 10:42 AM [facility] AST (SGOT) 25 10 - 42 unit/L LAB CHEMISTRY METHOD 05/19/2024 10:42 AM [facility] ALT (SGPT) 14 10 - 60 unit/L LAB CHEMISTRY METHOD 05/19/2024 10:42 AM [facility] Alkaline Phosphatase 58 42 - 121 unit/L LAB CHEMISTRY METHOD 05/19/2024 10:42 AM [facility] Total Protein 6.8 6.0 - 8.0 g/dL LAB CHEMISTRY METHOD 05/19/2024 10:42 AM [facility] Albumin 3.1(L) 3.2 - 5.0 g/dL LAB CHEMISTRY METHOD 05/19/2024 10:42 AM [facility] Total Bilirubin 0.4 0.0 - 1.4 mg/dL LAB CHEMISTRY METHOD 05/19/2024 10:42 AM [facility] Blood Venous blood specimen / Unknown Venipuncture / Unknown 05/19/2024 5:08 AM EST 05/19/2024 9:54 AM EST us Michelle Rucker MD LAB BLOOD ORDERABLES Fin al Result [facility] ([facility]) [facility] [address] [place] [address], documented in this encounter Visit Diagnoses Diagnosis Kidney transplant status 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 difficile Rule-Out 08/14/2024 08/13/20242024 11:06 AM EST MDRO (other) 12/15/2024 12/15/2024 documented as of this encounter Care Teams Food Service Worker Relationship Specialty Start Date End Date Michelle Rucker MD [address] [place] [phone] PCP - General Family Medicine 05/06/24 documented as of this encounter
--- OUTSIDE RECORDS SUMMARY | 2025-04-16 11:23 | XMS_ITS | Encounter Summary ---
Author Organization [facility] Address [address] [place] [address] Care Team Providers Care Advanced Research Programs Director Name Role Phone Michelle Rucker MD Primary Care Provider + Encounter Details Date Type Department Care Team (Late st Contact Info) Description 05/08/2024 Lab Requisition [facility] - Main Lab 299 [facility] [employer] [place] [address] Michelle Rucker MD [address] [phone] Kidney transplant status; Squamous cell carcinoma of [...] developed and the performance characteristics determined by [facility]. This confirmation testing has not been cleared or approved by the FDA. The laboratory is regulated under CLIA as qualified to perform high-complexity testing. This test is used for patient testing purposes. It should not be regarded as investigational or for research. Test performed at [facility], [address], [place] [address] Brittanie Horan MD, PhD - Private Mortgage Banker Safe Blood Venous blood specimen / Unknown Venipuncture / Unknown 05/11/2024 6:37 AM EST 05/11/2024 9:28 AM EST Michelle Rucker MD LAB BLOOD ORDERABLES Fin al Result [facility] [address] [place] [address] * (ABNORMAL) Comprehensive metabolic panel (05/11/2024 6:37 AM EST) Sodium 140 133 - 145 mmol/L LAB CHEMISTRY METHOD 05/11/2024 10:49 AM EST [facility] Potassium 4.5 3.5 - 5.5 mmol/L LAB CHEMISTRY METHOD 05/11/2024 10:49 AM EST [facility] Chloride 106 96 - 110 mmol/L LAB CHEMISTRY METHOD 05/11/2024 10:49 AM EST [facility] CO2 27 21 - 32 mmol/L LAB CHEMISTRY METHOD 05/11/2024 10:49 AM [facility] Anion Gap 7 3 - 11 LAB CHEMISTRY METHOD 05/11/2024 10:49 AM [facility] Glucose 113(H) 70 - 100 mg/dL LAB CHEMISTRY METHOD 05/11/2024 10:49 AM [facility] BUN 32(H) 5 - 25 mg/dL LAB CHEMISTRY METHOD 05/11/2024 10:49 AM [facility] Creatinine 2.00(H) 0.70 - 1.30 mg/dL LAB CHEMISTRY METHOD 05/11/2024 10:49 AM [facility] eGFR 36(L) >=60 mL/min/1. 73m2 LAB CHEMISTRY METHOD 05/11/2024 10:49 AM [facility] Comment:Calculation based on the Chronic Kidney Disease Epidemiology Collaboration (CKD-EPI) equation refit without adjustment for race. BUN/Creatinine Ratio 16.0 LAB CHEMISTRY METHOD 05/11/2024 10:49 AM [facility] Calcium 10.0 8.5 - 10.5 mg/dL LAB CHEMISTRY METHOD 05/11/2024 10:49 AM [facility] AST (SGOT) 18 10 - 42 unit/L LAB CHEMISTRY METHOD 05/11/2024 10:49 AM [facility] ALT (SGPT) 14 10 - 60 unit/L LAB CHEMISTRY METHOD 05/11/2024 10:49 AM [facility] Alkaline Phosphatase 56 42 - 121 unit/L LAB CHEMISTRY METHOD 05/11/2024 10:49 AM [facility] Total Protein 6.9 6.0 - 8.0 g/dL LAB CHEMISTRY METHOD 05/11/2024 10:49 AM [facility] Albumin 2.9(L) 3.2 - 5.0 g/dL LAB CHEMISTRY METHOD 05/11/2024 10:49 AM [facility] Total Bilirubin 0.3 0.0 - 1.4 mg/dL LAB CHEMISTRY METHOD 05/11/2024 10:49 AM [facility] Blood Venous blood specimen / Unknown Venipuncture / Unknown 05/11/2024 6:37 AM EST 05/11/2024 9:28 AM EST us Michelle Rucker MD LAB BLOOD ORDERABLES Fin al Result [facility] (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 difficile Rule-Out 08/14/2024 08/13/20242024 11:06 AM EST MDRO (other) 12/15/2024 12/15/2024 documented as of this encounter Care Teams Advanced Research Programs Director Relationship Specialty Start Date End Date Michelle Rucker MD [address] [place] [phone] PCP - General Family Medicine 05/06/24 documented as of this encounter
--- OUTSIDE RECORDS SUMMARY | 2025-04-16 11:23 | XMS_ITS | Encounter Summary ---
Author Organization [facility] Address [address] [place] [address] Care Team Providers Care Business Solutions Consultant Name Role Phone Michelle Rucker MD Primary Care Provider + Encounter Details Date Type Department Care Team (Late st Contact Info) Description 05/08/2024 Lab Requisition [facility] [address] [place] [address] Michelle Rucker MD [address] [phone] Kidney transplant status; Squamous cell carcinoma of [...] LAB CHEMISTRY METHOD 05/08/2024 9:21 AM EST [facility] ([facility] Potassium 4.4 3.5 - 5.5 mmol/L LAB CHEMISTRY METHOD 05/08/2024 9:21 AM [facility] Chloride 105 96 - 110 mmol/L LAB CHEMISTRY METHOD 05/08/2024 9:21 AM [facility] CO2 23 21 - 32 mmol/L LAB CHEMISTRY METHOD 05/08/2024 9:21 AM [facility] Anion Gap 8 3 - 11 LAB CHEMISTRY METHOD 05/08/2024 9:21 AM [facility] Glucose 183(H) 70 - 100 mg/dL LAB CHEMISTRY METHOD 05/08/2024 9:21 AM [facility] BUN 27(H) 5 - 25 mg/dL LAB CHEMISTRY METHOD 05/08/2024 9:21 AM [facility] Creatinine 1.82(H) 0.70 - 1.30 mg/dL LAB CHEMISTRY METHOD 05/08/2024 9:21 AM [facility] eGFR 40(L) >=60 mL/min/1. 73m2 LAB CHEMISTRY METHOD 05/08/2024 9:21 AM [facility] Comment:Calculation based on the Chronic Kidney Disease Epidemiology Collaboration (CKD-EPI) equation refit without adjustment for race. BUN/Creatinine Ratio 14.8 LAB CHEMISTRY METHOD 05/08/2024 9:21 AM [facility] Calcium 9.6 8.5 - 10.5 mg/dL LAB CHEMISTRY METHOD 05/08/2024 9:21 AM [facility] AST (SGOT) 20 10 - 42 unit/L LAB CHEMISTRY METHOD 05/08/2024 9:21 AM [facility] ALT (SGPT) 10 10 - 60 unit/L LAB CHEMISTRY METHOD 05/08/2024 9:21 AM [facility] Alkaline Phosphatase 52 42 - 121 unit/L LAB CHEMISTRY METHOD 05/08/2024 9:21 AM [facility] Total Protein 6.4 6.0 - 8.0 g/dL LAB CHEMISTRY METHOD 05/08/2024 9:21 AM [facility] Albumin 2.7(L) 3.2 - 5.0 g/dL LAB CHEMISTRY METHOD 05/08/2024 9:21 AM [facility] Total Bilirubin 0.5 0.0 - 1.4 mg/dL LAB CHEMISTRY METHOD 05/08/2024 9:21 AM [facility] Blood Venous blood specimen / Unknown Venipuncture / Unknown 05/08/2024 6:16 AM EST 05/08/2024 8:37 AM EST us Michelle Rucker MD LAB BLOOD ORDERABLES Fin al Result [facility] [address] [place] [address], * (ABNORMAL) Complete blood count (05/08/2024 6:16 AM EST) Pathologist [facility] WBC 9.8 4.8 - 10.8 K/mcL LAB HEMETOLOGY METHOD 05/08/2024 8:53 AM [facility] RBC 4.00(L) 4.50 - 5.50 M/[facility] LAB HEMETOLOGY METHOD 05/08/2024 8:53 AM [facility] Hemoglobin 11.0(L) 13.5 - 17.5 g/dL LAB HEMETOLOGY METHOD 05/08/2024 8:53 AM [facility] Hematocrit 34.0(L) 42.0 - 54.0 % LAB HEMETOLOGY METHOD 05/08/2024 8:53 AM [facility] MCV 85.4 79.0 - 98.0 FL LAB HEMETOLOGY METHOD 05/08/2024 8:53 AM [facility] MCH 27.6 27.0 - 32.0 pcg LAB HEMETOLOGY METHOD 05/08/2024 8:53 AM EST [facility] MCHC 32.4 32.0 - 37.0 g/dL LAB HEMETOLOGY METHOD 05/08/2024 8:53 AM [facility] RDW 12.8 11.0 - 15.0 % LAB HEMETOLOGY METHOD 05/08/2024 8:53 AM [facility] Platelets 235 130 - 400 K/mcL LAB HEMETOLOGY METHOD 05/08/2024 8:53 AM [facility] MPV 10.8 7.0 - 11.0 FL LAB HEMETOLOGY METHOD 05/08/2024 8:53 AM [facility] NRBC 0.0 <1.0 % LAB HEMETOLOGY METHOD 05/08/2024 8:53 AM [facility] NRBC Absolute 0.00 <0.10 K/mcL LAB HEMETOLOGY METHOD 05/08/2024 8:53 AM [facility] Blood Venous blood specimen / Unknown Venipuncture / Unknown 05/08/2024 6:16 AM EST 05/08/2024 8:37 AM EST Michelle Rucker MD LAB BLOOD ORDERABLES Fin al Result Performing Organization Address City/State/[facility] Co de Phone Number [facility] [address] [place] [address], documented in this encounter Visit Diagnoses Diagnosis Kidney transplant status 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 difficile Rule-Out 08/14/2024 08/13/20242024 11:06 AM EST MDRO (other) 12/15/2024 12/15/2024 documented as of this encounter Care Teams Business Solutions Consultant Relationship Specialty Start Date End Date Michelle Rucker MD [address] [place] [phone] PCP - General Family Medicine 05/06/24 documented as of this encounter
--- OUTSIDE RECORDS SUMMARY | 2025-04-16 11:23 | XMS_ITS | Encounter Summary ---
Author Organization [facility] Address [address] [place] [phone] Care Team Providers Care Rebar Fabricator Name Role Phone Michelle Rucker MD Primary Care Provider + Encounter Details Date Type Department Care Team (Late st Contact Info) Description 06/19/2024 Lab Requisition [facility] - Main Lab 299 [facility] [place] [address] Michelle Rucker MD [address] [phone] Hyperlipidemia, unspecified; Heart failure, unspecified (CMS/HCC V24, [...] documented as of this encounter Care Teams Rebar Fabricator Relationship Specialty Start Date End Date Michelle Rucker MD [address] [address] PCP - General Family Medicine 05/06/24 documented as of this encounter
--- OUTSIDE RECORDS SUMMARY | 2025-04-16 11:23 | XMS_ITS | Encounter Summary ---
Author Organization [facility] Address [address] [place] [address] Care Team Providers Care Casing Worker Name Role Phone Michelle Rucker MD Primary Care Provider + Encounter Details Date Type Department Care Team (Late st Contact Info) Description 06/03/2024 Lab Requisition [facility] - Main Lab [address] [place] [address] Michelle Rucker MD [address] [phone] Local infection of the skin and subcutaneous [...] Comprehensive metabolic panel (06/03/2024 5:20 AM EST) [facility] Signature Sodium 139 133 - 145 mmol/L LAB CHEMISTRY METHOD 06/03/2024 11:50 AM EST [facility] Potassium 4.2 3.5 - 5.5 mmol/L LAB CHEMISTRY METHOD 06/03/2024 11:50 AM [facility] LAB Chloride 106 96 - 110 mmol/L LAB CHEMISTRY METHOD 06/03/2024 11:50 AM [facility] CO2 24 21 - 32 mmol/L LAB CHEMISTRY METHOD 06/03/2024 11:50 AM [facility] Anion Gap 9 3 - 11 LAB CHEMISTRY METHOD 06/03/2024 11:50 AM [facility] Glucose 59(L) 70 - 100 mg/dL LAB CHEMISTRY METHOD 06/03/2024 11:50 AM [facility] BUN 34(H) 5 - 25 mg/dL LAB CHEMISTRY METHOD 06/03/2024 11:50 AM [facility] Creatinine 2.50(H) 0.70 - 1.30 mg/dL LAB CHEMISTRY METHOD 06/03/2024 11:50 AM [facility] LAB eGFR 28(L) >=60 mL/min/1. 73m2 LAB CHEMISTRY METHOD 06/03/2024 11:50 AM [facility] LAB Comment:Calculation based on the Chronic Kidney Disease Epidemiology Collaboration (CKD-EPI) equation refit without adjustment for race. BUN/Creatinine Ratio 13.6 LAB CHEMISTRY METHOD 06/03/2024 11:50 AM [facility] Calcium 9.9 8.5 - 10.5 mg/dL LAB CHEMISTRY METHOD 06/03/2024 11:50 AM [facility] LAB AST (SGOT) 15 10 - 42 unit/L LAB CHEMISTRY METHOD 06/03/2024 11:50 AM [facility] ALT (SGPT) 10 10 - 60 unit/L LAB CHEMISTRY METHOD 06/03/2024 11:50 AM [facility] Alkaline Phosphatase 56 42 - 121 unit/L LAB CHEMISTRY METHOD 06/03/2024 11:50 AM [facility] Total Protein 6.6 6.0 - 8.0 g/dL LAB CHEMISTRY METHOD 06/03/2024 11:50 AM EST [facility] Albumin 3.1(L) 3.2 - 5.0 g/dL LAB CHEMISTRY METHOD 06/03/2024 11:50 AM [facility] Total Bilirubin 0.4 0.0 - 1.4 mg/dL LAB CHEMISTRY METHOD 06/03/2024 11:50 AM [facility] Blood Venous blood specimen / Unknown Venipuncture / Unknown 06/03/2024 5:20 AM EST 06/03/2024 10:18 AM EST us Michelle Rucker MD LAB BLOOD ORDERABLES Fin al Result [facility] [address] [place] [address], [place] [phone] * (ABNORMAL) Complete blood count (06/03/2024 5:20 AM EST) WBC 4.9 4.8 - 10.8 K/mcL LAB HEMETOLOGY METHOD 06/03/2024 11:05 AM [facility] RBC 4.40(L) 4.50 - 5.50 M/mcL LAB HEMETOLOGY METHOD 06/03/2024 11:05 AM [facility] Hemoglobin 11.4(L) 13.5 - 17.5 g/dL LAB HEMETOLOGY METHOD 06/03/2024 11:05 AM [facility] Hematocrit 36.6(L) 42.0 - 54.0 % LAB HEMETOLOGY METHOD 06/03/2024 11:05 AM [facility] MCV 83.9 79.0 - 98.0 FL LAB HEMETOLOGY METHOD 06/03/2024 11:05 AM [facility] MCH 26.1(L) 27.0 - 32.0 pcg LAB HEMETOLOGY METHOD 06/03/2024 11:05 AM [facility] MCHC 31.1(L) 32.0 - 37.0 g/dL LAB HEMETOLOGY METHOD 06/03/2024 11:05 AM EST [facility] RDW 13.9 11.0 - 15.0 % LAB HEMETOLOGY METHOD 06/03/2024 11:05 AM [facility] LAB Platelets 157 130 - 400 K/mcL LAB HEMETOLOGY METHOD 06/03/2024 11:05 AM [facility] LAB MPV 11.5(H) 7.0 - 11.0 FL LAB HEMETOLOGY METHOD 06/03/2024 11:05 AM EST [facility] NRBC 0.0 <1.0 % LAB HEMETOLOGY METHOD 06/03/2024 11:05 AM [facility] LAB NRBC Absolute 0.00 <0.10 K/mcL LAB HEMETOLOGY METHOD 06/03/2024 11:05 AM [facility] LAB Blood Venous blood specimen / Unknown Venipuncture / Unknown 06/03/2024 5:20 AM EST 06/03/2024 10:18 AM EST Michelle Rucker MD LAB BLOOD ORDERABLES Fin al Result [facility] [address] [place] [address], documented in this encounter Visit Diagnoses Diagnosis Local infection of the skin and subcutaneous tissue, unspecified documented in this encounter Additional Health Concerns Infection Onset Date Last Indicated Resolved Time C. difficile Rule-Out 08/14/2024 08/13/20242024 11:06 AM EST MDRO (other) 12/15/2024 12/15/2024 documented as of this encounter Care Teams Casing Worker Relationship Specialty Start Date End Date Michelle Rucker MD [address] [address] PCP - General Family Medicine 05/06/24 documented as of this encounter
--- OUTSIDE RECORDS SUMMARY | 2025-04-16 11:23 | XMS_ITS | Encounter Summary ---
Author Organization [facility] Address [address] [place] [phone] Care Team Providers Care Acquisition Manager Name Role Phone Michelle Rucker MD Primary Care Provider + Encounter Details Date Type Department Care Team (Late st Contact Info) Description 05/07/2024 Lab Requisition [facility] - Main Lab [address] [place] [address] Michelle Rucker MD [address] [phone] Urinary tract infection, site not specified Social [...] reflex microscopic (05/06/2024 11:00 AM EST) Specific [place] Urine 1.015 1.003 - 1.030 LAB URINALYSIS - AUTOMATED METHOD 05/07/2024 11:00 AM [facility] LAB pH, Urine 5.5 5.0 - 8.0 pH LAB URINALYSIS - AUTOMATED METHOD 05/07/2024 11:00 AM [facility] LAB Leukocytes, Urine Trace(A) Negative LAB URINALYSIS - AUTOMATED METHOD 05/07/2024 11:00 AM [facility] Nitrite, Urine Negative Negative LAB URINALYSIS - AUTOMATED METHOD 05/07/2024 11:00 AM [facility] Protein, Urine 100(A) <=Trace mg/dL LAB URINALYSIS - AUTOMATED METHOD 05/07/2024 11:00 AM [facility] Glucose, Urine 500(A) Negative mg/dL LAB URINALYSIS - AUTOMATED METHOD 05/07/2024 11:00 AM [facility] Ketones, Urine Trace(A) Negative mg/dL LAB URINALYSIS - AUTOMATED METHOD 05/07/2024 11:00 AM [facility] Urobilinogen , Urine 0.2 0.2 - 1.0 mg/dL LAB URINALYSIS - AUTOMATED METHOD 05/07/2024 11:00 AM [facility] Bilirubin, Urine Negative Negative LAB URINALYSIS - AUTOMATED METHOD 05/07/2024 11:00 AM [facility] Blood, Urine Small(A) Negative LAB URINALYSIS - AUTOMATED METHOD 05/07/2024 11:00 AM [facility] RBC, Urine 2.6 0 - 4 /HPF LAB URINALYSIS - AUTOMATED METHOD 05/07/2024 11:00 AM [facility] WBC, Urine 20.3(H) 0 - 4 /HPF LAB URINALYSIS - AUTOMATED METHOD 05/07/2024 11:00 AM [facility] Squamous Epithelial, Urine 55 0 - 60 /LPF LAB URINALYSIS - AUTOMATED METHOD 05/07/2024 11:00 AM [facility] Bacteria, Urine Negative Negative /HPF LAB URINALYSIS - AUTOMATED METHOD 05/07/2024 11:00 AM EST [facility] Hyaline Casts, Urine 1.2 0 - 3 /LPF LAB URINALYSIS - AUTOMATED METHOD 05/07/2024 11:00 AM EST [facility] Yeast, Urine Present(A) None /HPF LAB URINALYSIS - AUTOMATED METHOD 05/07/2024 11:00 AM EST [facility] Urine Urine specimen obtained by clean catch procedure / Unknown 05/06/2024 11:00 AM EST 05/07/2024 9:55 AM EST us Michelle Rucker MD LAB URINE ORDERABLES Fin al Result [facility] [address] [place] [address], * (ABNORMAL) Culture urine (05/06/2024 11:00 AM EST) Culture, Urine 10,000-49,000 CFU/mL Klebsiella pneumoniae ssp pneumoniae(A) YENNIFER 05/09/2024 11:26 AM EST [facility] Comment: This is an edited result. Previous organism was Gram negative bacilli on 05/08/2024 at 0819 EST. Urine Urine specimen obtained by clean catch procedure / Unknown 05/06/2024 11:00 AM EST 05/07/2024 9:55 AM EST Narrative [facility] - 05/09/2024 11:26 AM EST [...] Susceptible Michelle Rucker MD LAB MICROBIOLOGY - [facility] AL ORDERABLES Final Result [facility]) [facility] [address] [place] [address], documented in this encounter Visit Diagnoses Diagnosis Urinary tract infection, site not specified documented in this encounter Additional Health Concerns Infection Onset Date Last Indicated Resolved Time C. difficile Rule-Out 08/14/2024 08/13/20242024 11:06 AM EST MDRO (other) 12/15/2024 12/15/2024 documented as of this encounter Care Teams Acquisition Manager Relationship Specialty Start Date End Date Michelle Rucker MD [address] [place] [phone] PCP - General Family Medicine 05/06/24 documented as of this encounter
--- OUTSIDE RECORDS SUMMARY | 2025-04-16 11:23 | XMS_ITS | Encounter Summary ---
Author Organization [facility] Address [address] [place] [phone] Care Team Providers Care Pasteuriser Operator Name Role Phone Michelle Rucker MD Primary Care Provider + Encounter Details Date Type Department Care Team (Late st Contact Info) Description 07/03/2024 Lab Requisition [facility] - Main Lab 299 [facility] [place] [address] Michelle Rucker MD [address] [address] Encounter for therapeutic drug level [...] developed and the performance characteristics determined by [facility]. This confirmation testing has not been cleared or approved by the FDA. The laboratory is regulated under CLIA as qualified to perform high-complexity testing. This test is used for patient testing purposes. It should not be regarded as investigational or for research. Test performed at [facility], [address], [place] [address] Brittanie Horan MD, PhD - Outbound Sales Advisor Blood Venous blood specimen / Unknown Venipuncture / Unknown 07/03/2024 5:42 AM EST 07/03/2024 9:25 AM EST Michelle Rucker MD LAB BLOOD ORDERABLES Fin al Result [facility] [address] [place] [address] documented in this encounter Visit Diagnoses Diagnosis Encounter for therapeutic drug level monitoring documented in this encounter Additional Health Concerns Infection Onset Date Last Indicated Resolved Time C. difficile Rule-Out 08/14/2024 08/13/20242024 11:06 AM EST MDRO (other) 12/15/2024 12/15/2024 documented as of this encounter Care Teams Pasteuriser Operator Relationship Specialty Start Date End Date Michelle Rucker MD 9 [place] [address] PCP - General Family Medicine 05/06/24 documented as of this encounter
--- OUTSIDE RECORDS SUMMARY | 2025-04-16 11:23 | XMS_ITS | Encounter Summary ---
Author Organization [facility] Address [address] [place] [phone] Care Team Providers Care Oversize Load Pilot Escort Name Role Phone Michelle Rucker MD Primary Care Provider + Encounter Details Date Type Department Care Team (Late st Contact Info) Description 05/13/2024 Lab Requisition [facility] - Main Lab 299 [facility] [place] [address] Michelle Rucker MD [address] [phone] Heart failure, unspecified (CMS/HCC V24, CMS/HCC V28); [...] mmol/L LAB CHEMISTRY METHOD 05/13/2024 12:10 PM [facility] Potassium 4.6 3.5 - 5.5 mmol/L LAB CHEMISTRY METHOD 05/13/2024 12:10 PM [facility] Chloride 105 96 - 110 mmol/L LAB CHEMISTRY METHOD 05/13/2024 12:10 PM [facility] CO2 23 21 - 32 mmol/L LAB CHEMISTRY METHOD 05/13/2024 12:10 PM [facility] Anion Gap 10 3 - 11 LAB CHEMISTRY METHOD 05/13/2024 12:10 PM [facility] Glucose 144(H) 70 - 100 mg/dL LAB CHEMISTRY METHOD 05/13/2024 12:10 PM [facility] BUN 30(H) 5 - 25 mg/dL LAB CHEMISTRY METHOD 05/13/2024 12:10 PM [facility] Creatinine 2.06(H) 0.70 - 1.30 mg/dL LAB CHEMISTRY METHOD 05/13/2024 12:10 PM [facility] eGFR 35(L) >=60 mL/min/1. 73m2 LAB CHEMISTRY METHOD 05/13/2024 12:10 PM [facility] Comment:Calculation based on the Chronic Kidney Disease Epidemiology Collaboration (CKD-EPI) equation refit without adjustment for race. BUN/Creatinine Ratio 14.6 LAB CHEMISTRY METHOD 05/13/2024 12:10 PM [facility] Calcium 9.8 8.5 - 10.5 mg/dL LAB CHEMISTRY METHOD 05/13/2024 12:10 PM [facility] AST (SGOT) 14 10 - 42 unit/L LAB CHEMISTRY METHOD 05/13/2024 12:10 PM [facility] ALT (SGPT) 14 10 - 60 unit/L LAB CHEMISTRY METHOD 05/13/2024 12:10 PM [facility] Alkaline Phosphatase 54 42 - 121 unit/L LAB CHEMISTRY METHOD 05/13/2024 12:10 PM [facility] Total Protein 6.5 6.0 - 8.0 g/dL LAB CHEMISTRY METHOD 05/13/2024 12:10 PM [facility] Albumin 2.8(L) 3.2 - 5.0 g/dL LAB CHEMISTRY METHOD 05/13/2024 12:10 PM [facility] Total Bilirubin 0.3 0.0 - 1.4 mg/dL LAB CHEMISTRY METHOD 05/13/2024 12:10 PM [facility] Blood Venous blood specimen / Unknown Venipuncture / Unknown 05/13/2024 6:07 AM EST 05/13/2024 8:50 AM EST Michelle Rucker MD LAB BLOOD ORDERABLES Fin al Result [facility] [address] [place] [address], * (ABNORMAL) Complete blood count (05/13/2024 6:07 AM EST) WBC 8.3 4.8 - 10.8 K/mcL LAB HEMETOLOGY METHOD 05/13/2024 10:51 AM [facility] RBC 4.10(L) 4.50 - 5.50 M/mcL LAB HEMETOLOGY METHOD 05/13/2024 10:51 AM [facility] Hemoglobin 10.8(L) 13.5 - 17.5 g/dL LAB HEMETOLOGY METHOD 05/13/2024 10:51 AM [facility] Hematocrit 34.5(L) 42.0 - 54.0 % LAB HEMETOLOGY METHOD 05/13/2024 10:51 AM [facility] MCV 85.2 79.0 - 98.0 FL LAB HEMETOLOGY METHOD 05/13/2024 10:51 AM [facility] MCH 26.7(L) 27.0 - 32.0 pcg LAB HEMETOLOGY METHOD 05/13/2024 10:51 AM [facility] MCHC 31.3(L) 32.0 - 37.0 g/dL LAB HEMETOLOGY METHOD 05/13/2024 10:51 AM [facility] RDW 13.0 11.0 - 15.0 % LAB HEMETOLOGY METHOD 05/13/2024 10:51 AM [facility] Platelets 250 130 - 400 K/mcL LAB HEMETOLOGY METHOD 05/13/2024 10:51 AM [facility] MPV 10.7 7.0 - 11.0 FL LAB HEMETOLOGY METHOD 05/13/2024 10:51 AM [facility] NRBC 0.0 <1.0 % LAB HEMETOLOGY METHOD 05/13/2024 10:51 AM [facility] NRBC Absolute 0.00 <0.10 K/mcL LAB HEMETOLOGY METHOD 05/13/2024 10:51 AM [facility] Blood Venous blood specimen / Unknown Venipuncture / Unknown 05/13/2024 6:07 AM EST 05/13/2024 8:50 AM EST us Michelle Rucker MD LAB BLOOD ORDERABLES Fin al Result [facility] [address] [place] [address], documented in this encounter Visit Diagnoses Diagnosis Heart failure, unspecified (CMS/HCC V24, [facility] V28) Heart failure, unspecified Type 1 diabetes mellitus with diabetic neuropathy, unspecified ([facility] V24, [facility] V28) Unspecified sequelae of unspecified cerebrovascular disease Kidney transplant status 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 difficile Rule-Out 08/14/2024 08/13/20242024 11:06 AM EST MDRO (other) 12/15/2024 12/15/2024 documented as of this encounter Care Teams Oversize Load Pilot Escort Relationship Specialty Start Date End Date Michelle Rucker MD [address] [place] [address] PCP - General Family Medicine 05/06/24 documented as of this encounter
--- OUTSIDE RECORDS SUMMARY | 2025-04-16 11:23 | XMS_ITS | Encounter Summary ---
Author Organization [facility] Address [address] [place] [phone] Care Team Providers Care Security Operations Center Operator Name Role Phone Michelle Rucker MD Primary Care Provider + Encounter Details Date Type Department Care Team (Late st Contact Info) Description 06/26/[address] [facility] - Main Lab 299 [facility] [place] [address] Michelle Rucker MD [address] [phone] Hyperlipidemia, unspecified; Heart failure, unspecified (CMS/HCC V24, [...] documented as of this encounter Care Teams Security Operations Center Operator Relationship Specialty Start Date End Date Michelle Rucker MD [address] [address] PCP - General Family Medicine 05/06/24 documented as of this encounter
--- OUTSIDE RECORDS SUMMARY | 2025-04-16 11:23 | XMS_ITS | Encounter Summary ---
Author Organization [facility] Address [address] [place] [address] [place] [phone] Phone Care Team Providers Care Webbing Weaver Name Role Phone Tennille Linton NP Primary Care Provider + Anni Quiñonez PA Unavailable [phone] Encounter Details Date Type Department Care Team (Late st Contact Info) Description 02/28/2024 Procedure Pass [facility] [address] [place] [address] Social History Tobacco Use Types Packs/Day Years [...] Care Team (Late st Contact Info) Description 04/22/2025 7:50 AM EDT Telemedicine [facility] Urology [address] [facility] [address] [place] [address] Bartolome Sandy MD, MS [address] [facility], [address] [place] [address] [email or web address] 05/18/2025 1:00 PM EST Office Visit [facility] Center [address] [facility] [address] [place] [address] Daisy Diaz MD, MPH [address] [facility] [address] [place] [address] [email or web address] documented as of this encounter Visit Diagnoses Not on filedocumented in this encounter Care Teams Webbing Weaver Relationship Specialty Start Date End Date Tennille Linton NP [address] [place] [phone] PCP - General Nurse Practitioner 08/30/23 Anni Quiñonez PA [address] [place] [phone] [email or web address] Technical Manager 08/30/23 shana myers Heart [facility] Hot Worker Cardiology 03/12/24 documented as of this encounter Additional Source Comments The information contained in this document represents components of the legal health record. It is not the complete legal health record.[facility]
--- OUTSIDE RECORDS SUMMARY | 2025-04-16 11:23 | XMS_ITS | Encounter Summary ---
Author Organization [facility] Address [id number] [place] [phone] Care Team Providers Care Machinery Mover Name Role Phone Michelle Rucker MD Primary Care Provider + Encounter Details Date Type Department Care Team (Late st Contact Info) Description 07/02/2024 Lab Requisition [facility] - Main Lab 299 [facility] [place] [address] Michelle Rucker MD [address] [address] Heart failure, unspecified (CMS/HCC V24, [...] 25 hydroxy (07/02/2024 7:17 AM EST) Pathologist [facility] Vit D, 25-Hydroxy 48.1 30.0 - 80.0 ng/mL LAB CHEMISTRY METHOD 07/02/2024 12:28 PM EST [facility] Blood Venous blood specimen / Unknown Venipuncture / Unknown 07/02/2024 7:17 AM EST 07/02/2024 9:17 AM EST Michelle Rucker MD LAB BLOOD ORDERABLES Fin al Result Performing Organization Address City/[facility]/ZIP Co de Phone Number [facility] [address] [place] [address], [place] [phone] * Vitamin B12 (07/02/2024 7:17 AM EST) [facility] Vitamin B-12 757 250 - 900 pcg/mL LAB CHEMISTRY METHOD 07/02/2024 12:08 PM EST [facility] Blood Venous blood specimen / Unknown Venipuncture / Unknown 07/02/2024 7:17 AM EST 07/02/2024 9:17 AM EST Michelle Rucker MD LAB BLOOD ORDERABLES Fin al Result [facility] [address] [place] [address], [place] [phone] * Folate (07/02/2024 7:17 AM EST) Pathologist [facility] Folate 6.1 2.8 - 17.0 ng/ml LAB CHEMISTRY METHOD 07/02/2024 12:00 PM EST [facility] Blood Venous blood specimen / Unknown Venipuncture / Unknown 07/02/2024 7:17 AM EST 07/02/2024 9:17 AM EST Michelle Rucker MD LAB BLOOD ORDERABLES Fin al Result Performing Organization Address City/[facility]/ZIP Co de Phone Number [facility] [address] [place] [address], * Magnesium (07/02/2024 7:17 AM EST) Magnesium 2.2 1.9 - 2.6 mg/dL LAB CHEMISTRY METHOD 07/02/2024 11:44 AM EST [facility] Blood Venous blood specimen / Unknown Venipuncture / Unknown 07/02/2024 7:17 AM EST 07/02/2024 9:17 AM EST Michelle Rucker MD LAB BLOOD ORDERABLES Fin al Result Performing Organization Address [facility] Co de Phone Number [facility] [address] [place] [address], * (ABNORMAL) Thyroid stimulating hormone (07/02/2024 7:17 AM EST) TSH 6.64(H) 0.40 - 4.00 mcIU/mL LAB CHEMISTRY METHOD 07/02/2024 12:29 PM EST [facility] Blood Venous blood specimen / Unknown Venipuncture / Unknown 07/02/2024 7:17 AM EST 07/02/2024 9:17 AM EST Michelle Rucker MD LAB BLOOD ORDERABLES Fin al Result Performing Organization Address City/[facility]/ZIP Co de Phone Number [facility] [address] [place] [address], [place] [phone] * (ABNORMAL) Hemoglobin A1c (07/02/2024 7:17 AM EST) Hemoglobin A1C 8.4(H) <6.5 % LAB CHEMISTRY METHOD 07/02/2024 1:47 PM [facility] Mean Bld Glu Estim. 194 mg/dL LAB CHEMISTRY METHOD 07/02/2024 1:47 PM [facility] Blood Venous blood specimen / Unknown Venipuncture / Unknown 07/02/2024 7:17 AM EST 07/02/2024 9:17 AM EST us Michelle Rucker MD LAB BLOOD ORDERABLES Fin al Result [facility] [address] [place] [address], [place] [phone] * (ABNORMAL) Comprehensive metabolic panel (07/02/2024 7:17 AM EST) Sodium 130(L) 133 - 145 mmol/L LAB CHEMISTRY METHOD 07/02/2024 12:14 PM [facility] Potassium 4.8 3.5 - 5.5 mmol/L LAB CHEMISTRY METHOD 07/02/2024 12:14 PM [facility] Chloride 96 96 - 110 mmol/L LAB CHEMISTRY METHOD 07/02/2024 12:14 PM [facility] CO2 26 21 - 32 mmol/L LAB CHEMISTRY METHOD 07/02/2024 12:14 PM [facility] Anion Gap 8 3 - 11 LAB CHEMISTRY METHOD 07/02/2024 12:14 PM [facility] Glucose 452(HH) 70 - 100 mg/dL LAB CHEMISTRY METHOD 07/02/2024 12:14 PM [facility] BUN 31(H) 5 - 25 mg/dL LAB CHEMISTRY METHOD 07/02/2024 12:14 PM [facility] Creatinine 1.53(H) 0.70 - 1.30 mg/dL LAB CHEMISTRY METHOD 07/02/2024 12:14 PM [facility] eGFR 50(L) >=60 mL/min/1. 73m2 LAB CHEMISTRY METHOD 07/02/2024 12:14 PM [facility] Comment:Calculation based on the Chronic Kidney Disease Epidemiology Collaboration (CKD-EPI) equation refit without adjustment for race. BUN/Creatinine Ratio 20.3 LAB CHEMISTRY METHOD 07/02/2024 12:14 PM [facility] Calcium 9.8 8.5 - 10.5 mg/dL LAB CHEMISTRY METHOD 07/02/2024 12:14 PM [facility] AST (SGOT) 16 10 - 42 unit/L LAB CHEMISTRY METHOD 07/02/2024 12:14 PM [facility] ALT (SGPT) 13 10 - 60 unit/L LAB CHEMISTRY METHOD 07/02/2024 12:14 PM [facility] Alkaline Phosphatase 84 42 - 121 unit/L LAB CHEMISTRY METHOD 07/02/2024 12:14 PM [facility] Total Protein 6.7 6.0 - 8.0 g/dL LAB CHEMISTRY METHOD 07/02/2024 12:14 PM [facility] Albumin 2.5(L) 3.2 - 5.0 g/dL LAB CHEMISTRY METHOD 07/02/2024 12:14 PM [facility] Total Bilirubin 0.5 0.0 - 1.4 mg/dL LAB CHEMISTRY METHOD 07/02/2024 12:14 PM [facility] Blood Venous blood specimen / Unknown Venipuncture / Unknown 07/02/2024 7:17 AM EST 07/02/2024 9:17 AM EST us Michelle Rucker MD LAB BLOOD ORDERABLES Fin al Result [facility] [address] [place] [address], * (ABNORMAL) Complete blood count (07/02/2024 7:17 AM EST) WBC 9.2 4.8 - 10.8 K/mcL LAB HEMETOLOGY METHOD 07/02/2024 10:51 AM [facility] RBC 4.50 4.50 - 5.50 M/mcL LAB HEMETOLOGY METHOD 07/02/2024 10:51 AM [facility] Hemoglobin 11.5(L) 13.5 - 17.5 g/dL LAB HEMETOLOGY METHOD 07/02/2024 10:51 AM [facility] Hematocrit 37.3(L) 42.0 - 54.0 % LAB HEMETOLOGY METHOD 07/02/2024 10:51 AM [facility] MCV 83.6 79.0 - 98.0 FL LAB HEMETOLOGY METHOD 07/02/2024 10:51 AM [facility] MCH 25.8(L) 27.0 - 32.0 pcg LAB HEMETOLOGY METHOD 07/02/2024 10:51 AM [facility] MCHC 30.8(L) 32.0 - 37.0 g/dL LAB HEMETOLOGY METHOD 07/02/2024 10:51 AM [facility] RDW 15.3(H) 11.0 - 15.0 % LAB HEMETOLOGY METHOD 07/02/2024 10:51 AM [facility] Platelets 322 130 - 400 K/mcL LAB HEMETOLOGY METHOD 07/02/2024 10:51 AM [facility] MPV 10.9 7.0 - 11.0 FL LAB HEMETOLOGY METHOD 07/02/2024 10:51 AM [facility] NRBC 0.0 <1.0 % LAB HEMETOLOGY METHOD 07/02/2024 10:51 AM [facility] NRBC Absolute 0.00 <0.10 K/mcL LAB HEMETOLOGY METHOD 07/02/2024 10:51 AM [facility] Blood Venous blood specimen / Unknown Venipuncture / Unknown 07/02/2024 7:17 AM EST 07/02/2024 9:17 AM EST Michelle Rucker MD LAB BLOOD ORDERABLES Fin al Result [facility] [address] [place] [address], documented in this encounter Visit Diagnoses Diagnosis Heart failure, unspecified (CMS/HCC V24, CMS/[facility]ER[facility] V28) Heart failure, unspecified Vitamin D deficiency, unspecified Hyperlipidemia, unspecified Anemia, unspecified Type 1 diabetes mellitus with diabetic neuropathy, unspecified (CMS/HCC V24, CMS/[facility] V28) 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 difficile Rule-Out 08/14/2024 08/13/20242024 11:06 AM EST MDRO (other) 12/15/2024 12/15/2024 documented as of this encounter Care Teams Machinery Mover Relationship Specialty Start Date End Date Michelle Rucker MD [address] [place] [phone] PCP - General Family Medicine 05/06/24 documented as of this encounter
--- OUTSIDE RECORDS SUMMARY | 2025-04-16 11:23 | XMS_ITS | Encounter Summary ---
Author Organization [facility] Address [address] [place] [phone] Care Team Providers Care Veterinary Technician Assistant Name Role Phone Michelle Rucker MD Primary Care Provider + Encounter Details Date Type Department Care Team (Late st Contact Info) Description 05/28/2024 Lab Requisition [facility] - Main Lab 299 [facility] [place] [address] Michelle Rucker MD [address] [address] Anemia, unspecified; Unspecified malignant neoplasm [...] - 20.0 ng/mL 05/30/2024 12:46 PM EST [facility] Comment: Additional Information: Toxic Level > [...] developed and the performance characteristics determined by [facility]. This confirmation testing has not been cleared or approved by the FDA. The laboratory is regulated under CLIA as qualified to perform high-complexity testing. This test is used for patient testing purposes. It should not be regarded as investigational or for research. Test performed at [facility], [address], [place], [place] [id number] Brittanie Horan MD, PhD - Single Wire Saw Operator Blood Venous blood specimen / Unknown Venipuncture / Unknown 05/28/2024 7:04 AM EST 05/28/2024 9:00 AM EST Michelle Rucker MD LAB BLOOD ORDERABLES Fin al Result [facility] [address] [place] [address] * (ABNORMAL) Comprehensive metabolic panel (05/28/2024 7:04 AM EST) Sodium 140 133 - 145 mmol/L LAB CHEMISTRY METHOD 05/28/2024 10:39 AM EST [facility] Potassium 4.5 3.5 - 5.5 mmol/L LAB CHEMISTRY METHOD 05/28/2024 10:39 AM [facility] Chloride 110 96 - 110 mmol/L LAB CHEMISTRY METHOD 05/28/2024 10:39 AM [facility] CO2 22 21 - 32 mmol/L LAB CHEMISTRY METHOD 05/28/2024 10:39 AM [facility] Anion Gap 8 3 - 11 LAB CHEMISTRY METHOD 05/28/2024 10:39 AM [facility] Glucose 104(H) 70 - 100 mg/dL LAB CHEMISTRY METHOD 05/28/2024 10:39 AM [facility] BUN 31(H) 5 - 25 mg/dL LAB CHEMISTRY METHOD 05/28/2024 10:39 AM [facility] Creatinine 2.24(H) 0.70 - 1.30 mg/dL LAB CHEMISTRY METHOD 05/28/2024 10:39 AM [facility] eGFR 32(L) >=60 mL/min/1. 73m2 LAB CHEMISTRY METHOD 05/28/2024 10:39 AM [facility] Comment:Calculation based on the Chronic Kidney Disease Epidemiology Collaboration (CKD-EPI) equation refit without adjustment for race. BUN/Creatinine Ratio 13.8 LAB CHEMISTRY METHOD 05/28/2024 10:39 AM [facility] Calcium 9.8 8.5 - 10.5 mg/dL LAB CHEMISTRY METHOD 05/28/2024 10:39 AM [facility] AST (SGOT) 21 10 - 42 unit/L LAB CHEMISTRY METHOD 05/28/2024 10:39 AM [facility] ALT (SGPT) 18 10 - 60 unit/L LAB CHEMISTRY METHOD 05/28/2024 10:39 AM [facility] Alkaline Phosphatase 56 42 - 121 unit/L LAB CHEMISTRY METHOD 05/28/2024 10:39 AM [facility] Total Protein 6.6 6.0 - 8.0 g/dL LAB CHEMISTRY METHOD 05/28/2024 10:39 AM [facility] Albumin 3.1(L) 3.2 - 5.0 g/dL LAB CHEMISTRY METHOD 05/28/2024 10:39 AM [facility] Total Bilirubin 0.4 0.0 - 1.4 mg/dL LAB CHEMISTRY METHOD 05/28/2024 10:39 AM [facility] Blood Venous blood specimen / Unknown Venipuncture / Unknown 05/28/2024 7:04 AM EST 05/28/2024 9:00 AM EST us Michelle Rucker MD LAB BLOOD ORDERABLES Fin al Result [facility] [address] [place] [address], [place] [phone] * (ABNORMAL) Complete blood count (05/28/2024 7:04 AM EST) WBC 6.9 4.8 - 10.8 K/mcL LAB HEMETOLOGY METHOD 05/28/2024 10:12 AM [facility] RBC 4.60 4.50 - 5.50 M/mcL LAB HEMETOLOGY METHOD 05/28/2024 10:12 AM [facility] Hemoglobin 11.9(L) 13.5 - 17.5 g/dL LAB HEMETOLOGY METHOD 05/28/2024 10:12 AM [facility] Hematocrit 37.5(L) 42.0 - 54.0 % LAB HEMETOLOGY METHOD 05/28/2024 10:12 AM [facility] MCV 82.4 79.0 - 98.0 FL LAB HEMETOLOGY METHOD 05/28/2024 10:12 AM [facility] MCH 26.2(L) 27.0 - 32.0 pcg LAB HEMETOLOGY METHOD 05/28/2024 10:12 AM [facility] MCHC 31.7(L) 32.0 - 37.0 g/dL LAB HEMETOLOGY METHOD 05/28/2024 10:12 AM EST [facility] RDW 13.2 11.0 - 15.0 % LAB HEMETOLOGY METHOD 05/28/2024 10:12 AM [facility] Platelets 236 130 - 400 K/mcL LAB HEMETOLOGY METHOD 05/28/2024 10:12 AM EST [facility] MPV 10.7 7.0 - 11.0 FL LAB HEMETOLOGY METHOD 05/28/2024 10:12 AM EST [facility] NRBC 0.0 <1.0 % LAB HEMETOLOGY METHOD 05/28/2024 10:12 AM [facility] NRBC Absolute 0.00 <0.10 K/mcL LAB HEMETOLOGY METHOD 05/28/2024 10:12 AM [facility] Blood Venous blood specimen / Unknown Venipuncture / Unknown 05/28/2024 7:04 AM EST 05/28/2024 9:00 AM EST Michelle Rucker MD LAB BLOOD ORDERABLES Fin al Result [facility] [address] [place] [address], documented in this encounter Visit Diagnoses Diagnosis [...] documented as of this encounter Care Teams Veterinary Technician Assistant Relationship Specialty Start Date End Date Michelle Rucker MD [address] [place] [phone] PCP - General Family Medicine 05/06/24 documented as of this encounter
--- OUTSIDE RECORDS SUMMARY | 2025-04-16 11:23 | XMS_ITS | Encounter Summary ---
Author Organization [facility] Address [address] [place] [phone] Care Team Providers Care Regional Economist Name Role Phone Michelle Rucker MD Primary Care Provider + Encounter Details Date Type Department Care Team (Late st Contact Info) Description 06/08/2024 Lab Requisition [facility] - Main Lab 299 [facility] [place] [address] Michelle Rucker MD [address] [phone] Heart failure, unspecified (CMS/HCC V24, CMS/HCC V28); [...] LAB CHEMISTRY METHOD 06/08/2024 2:45 PM EST [facility] Mean Bld Glu Estim. 169 mg/dL LAB CHEMISTRY METHOD 06/08/2024 2:45 PM EST [facility] Blood Venous blood specimen / Unknown Venipuncture / Unknown 06/08/2024 6:35 AM EST 06/08/2024 12:12 PM EST us Michelle Rucker MD LAB BLOOD ORDERABLES Fin al Result [facility] [address] [place] [address], [place] [phone] * Vitamin B12 (06/08/2024 6:35 AM EST) Pathologist [facility] Vitamin B-12 618 250 - 900 pcg/mL LAB CHEMISTRY METHOD 06/08/2024 6:05 PM EST [facility] Blood Venous blood specimen / Unknown Venipuncture / Unknown 06/08/2024 6:35 AM EST 06/08/2024 12:12 PM EST Michelle Rucker MD LAB BLOOD ORDERABLES Fin al Result [facility] [address] [place] [address], [place] [phone] * (ABNORMAL) Folate (06/08/2024 6:35 AM EST) [facility] Folate 2.1(L) 2.8 - 17.0 ng/ml LAB CHEMISTRY METHOD 06/08/2024 6:05 PM EST [facility] Blood Venous blood specimen / Unknown Venipuncture / Unknown 06/08/2024 6:35 AM EST 06/08/2024 12:12 PM EST Michelle Rucker MD LAB BLOOD ORDERABLES Fin al Result [facility] [address] [place] [address], [place] [phone] * (ABNORMAL) Magnesium (06/08/2024 6:35 AM EST) [facility] Magnesium 1.7(L) 1.9 - 2.6 mg/dL LAB CHEMISTRY METHOD 06/08/2024 5:40 PM EST [facility] Blood Venous blood specimen / Unknown Venipuncture / Unknown 06/08/2024 6:35 AM EST 06/08/2024 12:12 PM EST Michelle Rucker MD LAB BLOOD ORDERABLES Fin al Result Performing Organization Address [facility]/ZIP Co de Phone Number [facility] [address] [place] [address], [place] [phone] * (ABNORMAL) Thyroid stimulating hormone (06/08/2024 6:35 AM EST) TSH 4.31(H) 0.40 - 4.00 mcIU/mL LAB CHEMISTRY METHOD 06/08/2024 5:39 PM [facility] Blood Venous blood specimen / Unknown Venipuncture / Unknown 06/08/2024 6:35 AM EST 06/08/2024 12:12 PM EST Michelle Rucker MD LAB BLOOD ORDERABLES Fin al Result Performing Organization Address [facility]/ZIP Co de Phone Number [facility] [address] [place] [address], [place] [phone] * (ABNORMAL) Comprehensive metabolic panel (06/08/2024 6:35 AM EST) Pathologist [facility] Sodium 139 133 - 145 mmol/L LAB CHEMISTRY METHOD 06/08/2024 6:05 PM [facility] Potassium 3.9 3.5 - 5.5 mmol/L LAB CHEMISTRY METHOD 06/08/2024 6:05 PM [facility] Chloride 106 96 - 110 mmol/L LAB CHEMISTRY METHOD 06/08/2024 6:05 PM [facility] CO2 24 21 - 32 mmol/L LAB CHEMISTRY METHOD 06/08/2024 6:05 PM [facility] Anion Gap 9 3 - 11 LAB CHEMISTRY METHOD 06/08/2024 6:05 PM [facility] Glucose 159(H) 70 - 100 mg/dL LAB CHEMISTRY METHOD 06/08/2024 6:05 PM [facility] BUN 27(H) 5 - 25 mg/dL LAB CHEMISTRY METHOD 06/08/2024 6:05 PM [facility] Creatinine 1.91(H) 0.70 - 1.30 mg/dL LAB CHEMISTRY METHOD 06/08/2024 6:05 PM [facility] eGFR 38(L) >=60 mL/min/1. 73m2 LAB CHEMISTRY METHOD 06/08/2024 6:05 PM [facility] Comment:Calculation based on the Chronic Kidney Disease Epidemiology Collaboration (CKD-EPI) equation refit without adjustment for race. BUN/Creatinine Ratio 14.1 LAB CHEMISTRY METHOD 06/08/2024 6:05 PM [facility] Calcium 9.3 8.5 - 10.5 mg/dL LAB CHEMISTRY METHOD 06/08/2024 6:05 PM [facility] AST (SGOT) 13 10 - 42 unit/L LAB CHEMISTRY METHOD 06/08/2024 6:05 PM [facility] ALT (SGPT) 12 10 - 60 unit/L LAB CHEMISTRY METHOD 06/08/2024 6:05 PM [facility] Alkaline Phosphatase 56 42 - 121 unit/L LAB CHEMISTRY METHOD 06/08/2024 6:05 PM [facility] Total Protein 6.3 6.0 - 8.0 g/dL LAB CHEMISTRY METHOD 06/08/2024 6:05 PM [facility] Albumin 2.9(L) 3.2 - 5.0 g/dL LAB CHEMISTRY METHOD 06/08/2024 6:05 PM [facility] Total Bilirubin 0.5 0.0 - 1.4 mg/dL LAB CHEMISTRY METHOD 06/08/2024 6:05 PM [facility] Blood Venous blood specimen / Unknown Venipuncture / Unknown 06/08/2024 6:35 AM EST 06/08/2024 12:12 PM EST Michelle Rucker MD LAB BLOOD ORDERABLES Fin al Result [facility] [address] [place] [address], * (ABNORMAL) Complete blood count (06/08/2024 6:35 AM EST) WBC 4.2(L) 4.8 - 10.8 K/mcL LAB HEMETOLOGY METHOD 06/08/2024 1:01 PM [facility] RBC 4.50 4.50 - 5.50 M/mcL LAB HEMETOLOGY METHOD 06/08/2024 1:01 PM [facility] Hemoglobin 11.6(L) 13.5 - 17.5 g/dL LAB HEMETOLOGY METHOD 06/08/2024 1:01 PM [facility] Hematocrit 37.4(L) 42.0 - 54.0 % LAB HEMETOLOGY METHOD 06/08/2024 1:01 PM [facility] MCV 82.6 79.0 - 98.0 FL LAB HEMETOLOGY METHOD 06/08/2024 1:01 PM [facility] MCH 25.6(L) 27.0 - 32.0 pcg LAB HEMETOLOGY METHOD 06/08/2024 1:01 PM [facility] MCHC 31.0(L) 32.0 - 37.0 g/dL LAB HEMETOLOGY METHOD 06/08/2024 1:01 PM [facility] RDW 13.7 11.0 - 15.0 % LAB HEMETOLOGY METHOD 06/08/2024 1:01 PM [facility] Platelets 152 130 - 400 K/mcL LAB HEMETOLOGY METHOD 06/08/2024 1:01 PM [facility] MPV 11.4(H) 7.0 - 11.0 FL LAB HEMETOLOGY METHOD 06/08/2024 1:01 PM [facility] NRBC 0.0 <1.0 % LAB HEMETOLOGY METHOD 06/08/2024 1:01 PM EST [facility] NRBC Absolute 0.00 <0.10 K/mcL LAB HEMETOLOGY METHOD 06/08/2024 1:01 PM EST [facility] Blood Venous blood specimen / Unknown Venipuncture / Unknown 06/08/2024 6:35 AM EST 06/08/2024 12:12 PM EST us Michelle Rucker MD LAB BLOOD ORDERABLES Fin al Result [facility] [address] [place] [address], documented in this encounter Visit Diagnoses Diagnosis [...] documented as of this encounter Care Teams Regional Economist Relationship Specialty Start Date End Date Michelle Rucker MD [address] [place] [phone] PCP - General Family Medicine 05/06/24 documented as of this encounter
--- OUTSIDE RECORDS SUMMARY | 2025-04-16 11:23 | XMS_ITS | Encounter Summary ---
Author Organization [facility] Address [id number] [place] [phone] Care Team Providers Care Design Drafter Chief Name Role Phone Michelle Rucker MD Primary Care Provider + Encounter Details Date Type Department Care Team (Late st Contact Info) Description 06/13/2024 Lab Requisition [facility] - Main Lab [address] [facility] [place] [address] Michelle Rucker MD [address] [phone] Hyperlipidemia, unspecified; Heart failure, unspecified (CMS/HCC V24, [...] mmol/L LAB CHEMISTRY METHOD 06/15/2024 1:26 PM [facility] Potassium 4.6 3.5 - 5.5 mmol/L LAB CHEMISTRY METHOD 06/15/2024 1:26 PM [facility] Chloride 106 96 - 110 mmol/L LAB CHEMISTRY METHOD 06/15/2024 1:26 PM [facility] CO2 24 21 - 32 mmol/L LAB CHEMISTRY METHOD 06/15/2024 1:26 PM [facility] Anion Gap 6 3 - 11 LAB CHEMISTRY METHOD 06/15/2024 1:26 PM [facility] Glucose 304(H) 70 - 100 mg/dL LAB CHEMISTRY METHOD 06/15/2024 1:26 PM [facility] BUN 32(H) 5 - 25 mg/dL LAB CHEMISTRY METHOD 06/15/2024 1:26 PM [facility] Creatinine 1.82(H) 0.70 - 1.30 mg/dL LAB CHEMISTRY METHOD 06/15/2024 1:26 PM [facility] eGFR 40(L) >=60 mL/min/1. 73m2 LAB CHEMISTRY METHOD 06/15/2024 1:26 PM [facility] Comment:Calculation based on the Chronic Kidney Disease Epidemiology Collaboration (CKD-EPI) equation refit without adjustment for race. BUN/Creatinine Ratio 17.6 LAB CHEMISTRY METHOD 06/15/2024 1:26 PM [facility] Calcium 10.1 8.5 - 10.5 mg/dL LAB CHEMISTRY METHOD 06/15/2024 1:26 PM [facility] Blood Venous blood specimen / Unknown Venipuncture / Unknown 06/15/2024 6:08 AM EST 06/15/2024 11:15 AM EST Michelle Rucker MD LAB BLOOD ORDERABLES Fin al Result [facility] [address] [place] [address], * (ABNORMAL) Complete blood count (06/15/2024 6:08 AM EST) WBC 7.4 4.8 - 10.8 K/mcL LAB HEMETOLOGY METHOD 06/15/2024 1:05 PM [facility] RBC 5.20 4.50 - 5.50 M/mcL LAB HEMETOLOGY METHOD 06/15/2024 1:05 PM [facility] Hemoglobin 13.1(L) 13.5 - 17.5 g/dL LAB HEMETOLOGY METHOD 06/15/2024 1:05 PM [facility] Hematocrit 42.1 42.0 - 54.0 % LAB HEMETOLOGY METHOD 06/15/2024 1:05 PM [facility] MCV 81.6 79.0 - 98.0 FL LAB HEMETOLOGY METHOD 06/15/2024 1:05 PM [facility] MCH 25.4(L) 27.0 - 32.0 pcg LAB HEMETOLOGY METHOD 06/15/2024 1:05 PM [facility] MCHC 31.1(L) 32.0 - 37.0 g/dL LAB HEMETOLOGY METHOD 06/15/2024 1:05 PM [facility] RDW 14.0 11.0 - 15.0 % LAB HEMETOLOGY METHOD 06/15/2024 1:05 PM [facility] Platelets 219 130 - 400 K/mcL LAB HEMETOLOGY METHOD 06/15/2024 1:05 PM [facility] MPV 11.4(H) 7.0 - 11.0 FL LAB HEMETOLOGY METHOD 06/15/2024 1:05 PM EST [facility] NRBC 0.0 <1.0 % LAB HEMETOLOGY METHOD 06/15/2024 1:05 PM EST [facility] NRBC Absolute 0.00 <0.10 K/mcL LAB HEMETOLOGY METHOD 06/15/2024 1:05 PM EST [facility] Blood Venous blood specimen / Unknown Venipuncture / Unknown 06/15/2024 6:08 AM EST 06/15/2024 11:15 AM EST us Michelle Rucker MD LAB BLOOD ORDERABLES Fin al Result [facility] [address] [place] [address], documented in this encounter Visit Diagnoses Diagnosis [...] documented as of this encounter Care Teams Design Drafter Chief Relationship Specialty Start Date End Date Michelle Rucker MD [address] [place] [phone] PCP - General Family Medicine 05/06/24 documented as of this encounter
--- OUTSIDE RECORDS SUMMARY | 2025-04-16 11:24 | XMS_ITS | Encounter Summary ---
Author Organization [facility] Address [id number] [place] [phone] Care Team Providers Care Hand Glass Cutter Name Role Phone Michelle Rucker MD Primary Care Provider + Encounter Details Date Type Department Care Team (Late st Contact Info) Description 07/14/2024 Lab Requisition [facility] - Main Lab [address] [facility] [place] [address] Michelle Rucker MD [address] [phone] Heart failure, unspecified (CMS/HCC V24, CMS/[facility] V28); Vitamin D deficiency, unspecified; Hyperlipidemia, [...] mellitus with diabetic neuropathy, unspecified (CMS/HCC V24, CMS/[facility] V28) 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 difficile Rule-Out 08/14/2024 08/13/20242024 11:06 AM EST MDRO (other) 12/15/2024 12/15/2024 documented as of this encounter Care Teams Hand Glass Cutter Relationship Specialty Start Date End Date Michelle Rucker MD [address] [phone] PCP - General Family Medicine 05/06/24 documented as of this encounter
--- OUTSIDE RECORDS SUMMARY | 2025-04-16 11:24 | XMS_ITS | Encounter Summary ---
Author Organization [facility] Address [address] [place] [phone] Care Team Providers Care Resistance Machine Welder Setter Name Role Phone Michelle Rucker MD Primary Care Provider + Encounter Details Date Type Department Care Team (Late st Contact Info) Description 07/21/2024 Lab Requisition [facility] - Main Lab [address] [facility] [place] [address] Michelle Rucker MD [address] [phone] Vitamin D deficiency, unspecified; Type 1 diabetes [...] documented as of this encounter Care Teams Resistance Machine Welder Setter Relationship Specialty Start Date End Date Michelle Rucker MD [address] [phone] PCP - General Family Medicine 05/06/24 documented as of this encounter
--- OUTSIDE RECORDS SUMMARY | 2025-04-16 11:24 | XMS_ITS | Clinical Summary ---
Author Organization [facility] Address [address] [place] [address] Phone Care Team Providers Care Derrick Boat Captain Name Role Phone Tennille Linton NP Primary Care Provider + Anni Quiñonez PA Unavailable [phone] Allergies Active Allergy Reactions Criticality Noted Date Comments Grass Pollen Other (See Comments) 03/12/2024 Hydrocodone Bitartrate Nausea and/or Vomiting Medium 03/13/2024 Hydromorphone Other (See Comments) High 08/12/2019 Hallucination; altered mental status, Paranoid for days Oxycodone Mental Status Change 04/03/2024 Medications tacrolimus (PROGRAF) 1 MG capsule Take 1 mg by mouth 2 (two) times a day. 02/05/2024 Active rosuvastatin (CRESTOR) 40 MG tablet Take 1 tablet by mouth daily. 05/15/2023 Active acetaminophen (TYLENOL) 325 mg tablet Take 2 tablets (650 mg total) by mouth every 4 (four) hours as needed. 03/25/2024 Active tamsulosin (FLOMAX) 0.4 mg Cap Take 1 capsule (0.4 mg total) by mouth daily. 30 capsule 03/26/2024 Active blood sugar diagnostic Strp strips 02/05/2024 Active loratadine (CLARITIN) 10 mg tablet Take 10 mg by mouth daily. Active aspirin 81 MG EC tablet Take 81 mg by mouth daily. Active Hospital, Clinic, or Other Facility Administered Medication Ordered Dose Route Frequency Start Date End Date Status tranexamic acid (CYKLOKAPRON) injection 100 mg 100 mg SubQ Once 03/23/2025 03/23/2025 Ended cephalexin (KEFLEX) capsule 2,000 mg 2000 mg Oral Once 03/23/2025 03/23/2025 Ended Active Problems Problem Noted Date Diagnosed Date Malignant neoplasm of prostate 03/02/2025 Assessment & Plan (03/03/2025 7:42 AM EDT): Assessment: Harvey Law is a 69 y.o. 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 He has a recent diagnosis of pT1b prostate cancer which is New Douglas score 3+4=7 (or possibly Andry score 3+3=6 [...] report of inflammatory changes associated with the salamatof right kidney, I am concerned that the [...] Encounters Date Type Department Care Team Description 04/09/2025 12:44 PM EDT - 04/09/2025 11:59 PM EDT Hospital Encounter [facility] [address] [place] [address] Bartolome Sandy MD, MS Discharge Disposition: Home or Self Care 04/09/2025 11:30 AM EDT Office Visit [facility], [facility] [address] [facility] [place] [address] Mary Ann Alford MD, FACS 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) 03/29/2025 Telephone [facility] [address] [place] [address] Cherelle Palacios LPN Results 03/24/2025 Telephone [facility] [address] [place] [address] Mary Zambrano LPN Post-op 03/23/2025 1:42 PM EDT - 03/23/2025 11:59 PM EDT Hospital Encounter [facility] Anatomic Pathology [address] [place] [address] Discharge Disposition: Home or Self Care 03/23/2025 1:30 PM EDT Office Visit [place] [id number] [place] [address] Daisy Sherwood MD, MPH Skin lesion (Primary Dx); Squamous cell carcinoma of back 03/02/2025 3:45 PM EDT Office Visit [facility], [facility] [address] [facility] [place] [address] Raleigh Arellano MD Malignant neoplasm of prostate (Primary Dx) 03/02/2025 2:00 PM EDT Office Visit [facility], [facility] [address] [facility] [place] [address] Amauri Rizo MD, PAULA Prostate cancer (Primary Dx) 03/02/2025 1:00 PM EDT Office Visit [facility], [address], [address] [place] [address] Bartolome Sandy MD, MS Prostate cancer (Primary Dx); Malignant neoplasm of prostate 03/02/2025 12:30 PM EDT Infusion [facility] [address] [place] [address] Bartolome Sandy MD, Karlie Guaman RN Prostate cancer 03/02/2025 Procedure Pass [facility]' Supervisor [employer] [address] [address] 01/22/2025 Telephone [place] [id number] [place] [address] Genna Hogan LPN pathology result 01/20/2025 Documentation [facility], [address], [address] [place] [address] Michelle Shearer MD 01/19/2025 2:12 PM EDT - 01/19/2025 11:59 PM EDT Hospital Encounter [facility], [address] [address] Discharge Disposition: Home or Self Care 01/14/2025 8:40 AM EDT Office Visit [facility], [address], [address] [place] [address] Daisy Sherwood MD, MPH Skin lesion (Primary Dx); Actinic keratosis; History of skin cancer 01/14/2025 Orders Only [facility], [address], [address] [place] [address] Bartolome Sandy MD, MS Prostate cancer (Primary Dx) 01/14/2025 Orders Only [facility], [facility] [address] [place] [address], 5th [place] [address] Michelle Shearer MD Squamous cell carcinoma of [...] Sign Reading Time Taken Comments Blood Pressure 132/60 04/09/2025 11:15 AM EDT Pulse 86 04/09/2025 11:15 AM EDT Temperature 36.5 C (97.7 F) 04/09/2025 11:15 AM EDT Respiratory Rate 16 04/09/2025 11:15 AM EDT Oxygen Saturation 97% 04/09/2025 11:15 AM EDT Inhaled Oxygen Concentration 40% 03/23/2024 5 :00 AM EDT Weight 75.8 kg (167 lb) 05/30/2024 1:03 PM EST Height 167.6 cm (5' 6 ) 05/30/2024 1:03 PM EST Body Mass Index 26.95 05/30/2024 1:03 PM EST Plan of Treatment Upcoming Encounters Date Type Department Care Team (Late Contact Info) Description 04/22/2025 7:50 AM EDT Telemedicine [facility] Urology [address] [facility] [address] [place] [address] Bartolome Sandy MD, MS [address] [facility] [place] [address] [email or web address] 05/18/2025 1:00 PM EST Office Visit [facility] MOHS Center [address] [facility] [address] [place] [address] Daisy Sherwood MD, MPH [address] [facility] [address] [place] [address] [email or web address] Maintenance Due Date Last Done Comments HEPATITIS C SCREENING 09/22/1975 ZOSTER VACCINES (1 of 2) 1976 COLOGUARD 2002 COLONOSCOPY 2002 COLORECTAL CANCER SCREENING 2002 FIT TEST 2002 FOBT 2002 SIGMOIDOSCOPY 2002 VIRTUAL COLONOSCOPY 2002 RSV VACCINE (1 - Risk 50-74 years 1-dose series) 09/22/2007 PNEUMOCOCCAL VACCINES (50+ years) (2 of 2 - PCV) 01/16/2018 01/16/2017 DIABETIC EYE EXAM 03/13/2024 INFLUENZA VACCINE (#1) 2025 , 05/27/2023, 04/07/2021, Additional history exists COVID-19 VACCINE ( season) 2025 05/27/2023, 05/03/2022, 03/02/2021, Additional history exists DEPRESSION SCREENING 04/01/2025 04/01/2024 HEMOGLOBIN A1C 04/06/2025 01/04/2025, 11/22, 10/02/2024, Additional history exists BLOOD PRESSURE 10/08/2025 04/09/2025 URINE MICROALBUMIN/CREATININE RATIO 01/04/2026 01/04/2025, 12/01/2024, 10/01/2024, Additional history exists Adult Td,Tdap Booster 02/03/2027 02/03/2017 SMOKING STATUS SCREENING (Once After 26 Yrs) Completed 03/23/2025 HEPATITIS A VACCINES Aged Out No long [...] this topic Medical Devices Implanted Type Area Dicer Machine Operator Device Identifier Shelf Expiration Date Model / Serial / Lot Buyer Grain Anastomosis 3mm Vesselxorthopedic Microvascular Polyethylene S/S Bx/6ea - [id number] Implanted:Qty: 1 on 03/18/2024 by Mary Ann Alford MD, FACS at [facility] STANDARD Left: Neck [employer]IAN 06/12/2027 [id number] / / [id number] Loop Recorder Patient Travels By Stretcher Procedures Procedure Name Priority Date/Time Associated Diagnosis Comments MRI PROSTATE WITH AND WITHOUT CONTRAST Routine 04/09/2025 1:59 PM EDT Prostate cancer MOHS SURGERY Routine 03/23/2025 2:17 PM EDT Squamous cell carcinoma of back Skin lesion DERMATOPATHOLOGY Routine 03/23/2025 12:0 0 AM EDT DERMATOPATHOLOGY Routine 03/23/2025 PSA DIAGNOSTIC (MONITORING) Routine 03/02/2025 3:48 PM EDT Prostate cancer DERMATOPATHOLOGY Routine 01/14/2025 12:0 0 AM EDT MICROALBUMIN/CREATININE RATIO, RANDOM URINE Routine 03/22/2024 12:19 PM EDT from Last 3 Months or Most Recently Relevant to Health Maintenance Results * MRI PROSTATE WITH AND WITHOUT CONTRAST (04/09/2025 1:59 PM EDT) Anatomical Region Laterality Modality Pelvis Magnetic Resonan ce 04/09/2025 2:14 PM EDT Impressions 04/09/2025 10:03 PM EDT 1. Right peripheral zone base to mid technically PI-RADS 4 lesion. 2. Focal restriction in the medial right seminal vesicle may be due to debris or neoplasia although there is only peripheral enhancement at the site of restriction which may make neoplasia less likely. Correlation with PSMA PET/CT may be helpful. ATTESTATION: Floyd Jean Baptiste, as teaching physician have reviewed the images, if any, for this patient's exam, and if necessary, have edited the report originally created by Kendra Young. Narrative 04/09/2025 10:03 PM EDT MRI PROSTATE WITH AND WITHOUT CONTRAST Referring clinician's provided indication for this examination in [facility]: * Prostate cancer, initial staging, low risk; History of prostate cancer TECHNIQUE: Multiplanar MR imaging of the pelvis was performed using T1, T2, fat saturated, and diffusion weighted techniques. Dynamic multiphase imaging was also performed after administration of an intravenous gadolinium contrast agent. Several sequences are blurred by motion. COMPARISON: None Additional Information: PSA: 0.41 ng/ml PSA density: 0.02 ng/ml/cc Biopsy Date: 12/03/2024 Biopsy results: New Douglas pattern 3 + 4 Prior treatment or Active Surveillance: Active surveillance FINDINGS: Prostate Gland Size: 2.8 x 4.5 x 2.8 cm Prostate Volume: 19 mL PERIPHERAL ZONE: Patchy areas of low T2 weighted signal. Focal Lesion(s): 1. There is a 1.0 cm focal lesion (5, 2 : 4, 25) in the right peripheral zone, located at the mid to base, posterolateral region (PZpl). The lesion is focally mildly hypointense on ADC and/or moderately hyperintense on high b-value DWI, dynamic contrast enhancement is positive, and is linear or wedge-shaped hypointensity or diffuse mild hypointensity on T2WI. There is no evidence of extraprostatic extension. The lesion is PI-RADS 4. TRANSITION ZONE: Status post TURP. No focal lesion to suggest clinically significant prostate cancer. The Membranous Urethra Length (MUL) is: 0.9 cm Seminal Vesicles: Normal morphology. Minimal focal restriction is noted within the medial right seminal vesicle with minimal peripheral early enhancement measuring 0.8 cm. Bladder: Rosario catheter decompresses the bladder. Rectum: No wall thickening. Colonic diverticulosis. Lymph Nodes: Borderline inguinal lymph nodes, likely reactive. No pelvic lymphadenopathy by size criteria. Vessels: Patent pelvic vessels. Bones/Soft Tissues: No destructive osseous lesions. Right lower quadrant renal transplant. Procedure Note Floyd Anderson MD - 04/09/2025 MRI PROSTATE WITH AND WITHOUT CONTRAST Referring clinician's provided indication for this examination in Epic: *Prostate cancer, initial staging, low risk; History of prostate cancer TECHNIQUE: Multiplanar MR imaging of the pelvis was performed using T1,T2, fat saturated, and diffusion weighted techniques. Dynamic multiphaseimaging was also performed after administration of an intravenousgadolinium contrast agent. Several sequences are blurred by motion. COMPARISON: None Additional Information: PSA: 0.41 ng/ml PSA density: 0.02 ng/ml/cc Biopsy Date: 12/03/2024 Biopsy results: Andry pattern 3 + 4 Prior treatment or Active Surveillance: Active surveillance FINDINGS: Prostate Gland Size: 2.8 x 4.5 x 2.8 cm Prostate Volume: 19 mL PERIPHERAL ZONE: Patchy areas of low T2 weighted signal. Focal Lesion(s): 1. There is a 1.0 cm focal lesion (5, 2 : 4, 25) in the right peripheralzone, located at the mid to base, posterolateral region (PZpl). The lesionis focally mildly hypointense on ADC and/or moderately hyperintense onhigh b-value DWI, dynamic contrast enhancement is positive, and is linearor wedge-shaped hypointensity or diffuse mild hypointensity on T2WI. Thereis no evidence of extraprostatic extension. The lesion is PI-RADS 4. TRANSITION ZONE: Status post TURP. No focal lesion to suggest clinically significantprostate cancer. The Membranous Urethra Length (MUL) is: 0.9 cm Seminal Vesicles: Normal morphology. Minimal focal restriction is notedwithin the medial right seminal vesicle with minimal peripheral earlyenhancement measuring 0.8 cm. Bladder: Rosario catheter decompresses the bladder. Rectum: No wall thickening. Colonic diverticulosis. Lymph Nodes: Borderline inguinal lymph nodes, likely reactive. No pelviclymphadenopathy by size criteria. Vessels: Patent pelvic vessels. Bones/Soft Tissues: No destructive osseous lesions. Right lower quadrantrenal transplant. IMPRESSION: 1. Right peripheral zone base to mid technically PI-RADS 4 lesion. 2. Focal restriction in the medial right seminal vesicle may be due todebris or neoplasia although there is only peripheral enhancement at thesite of restriction which may make neoplasia less likely. Correlation withPSMA PET/CT may be helpful. ATTESTATION: Floyd Jean Baptiste, as teaching physician have reviewed theimages, if any, for this patient's exam, and if necessary, have edited thereport originally created by Kendra Young. us Bartolome Sandy MD, MS IMG MR PELVIS Final Resu lt * Mohs surgery (03/23/2025 2:17 PM EDT) Other Narrative Mary Zambrano LPN - 03/23/2025 2:17 PM EDT Mary Zambrano LPN 03/23/2025 5:07 PM Mohs surgery Date/Time: 03/23/2025 2:17 PM Performed by: Daisy Sherwood MD, MPH Authorized by: Daisy Sherwood MD, MPH Preparation: Patient was prepped and draped in the usual sterile fashion. Local anesthesia used: yes Anesthesia: local infiltration Anesthesia: Local anesthesia used: yes Local Anesthetic: lidocaine 1% with epinephrine and NaHCO3 (sodium bicarbonate) Anesthetic total: 15 mL Sedation: Patient sedated: no Patient tolerance: patient tolerated the procedure well with no immediate complications us Daisy Sherwood MD, MPH DERM PROCEDURE ORDERABLES F inal Result * Dermatopathology (03/23/2025 12:00 AM EDT) Only the most recent of3 resultswithin the time period is included. Final Diagnosis A. SKIN, RIGHT SHOULDER, SHAVE BIOPSY: SQUAMOUS CELL CARCINOMA, invasive, moderately to well differentiated, present at deep margin. B. SKIN, LEFT HYPOCHONDRIAC REGION OF ABDOMEN, SHAVE BIOPSY: SQUAMOUS CELL CARCINOMA, invasive, transected at base. [facility] Clinical History A) 1.0 cm x 1.0 cm pink eroded papule x 1-3 months with change in size, color, and elevation B) 1.8 cm x 1.2 cm pink plaque with rolled border x 1-3 months with change in size, color, and elevation [facility] Operation Shave biopsy [facility] Clinical Diagnosis Squamous cell carcinoma [facility] Tissue Submitted A/. Right shoulder B/2. Left hypochondriac region of abdomen [facility] Gross Description The specimen is received in formalin, in two parts, each labeled with the patient's name and medical record number. Part A, labeled Right shoulder , consists of a merino-white skin shave (1.3 x 1.3 x <0.1 cm). The epithelial surface displays a merino-white elevated, crusted granulated lesion (0.9 x 1.0 x 0.2 cm), located <0.1 cm from the closest radial margin. The specimen is inked, serially sectioned, and entirely submitted. A1-A3: 2 fragments each. Part B, labeled Left hypochondriac region of abdomen , consists of a merino-white skin shave (0.7 x 0.8 x <0.1 cm). The epithelial surface displays a merino-white ill?defined, crusted lesion (0.6 x 0.5 cm), located <0.1 cm from the closest radial margin. The specimen is inked, trisected, and entirely submitted. B1-B2: 3 fragments total. Dictated by: Lashon Roberts By his/her signature below, the senior physician certifies that he/she personally conducted a microscopic examination ( gross only exam if so stated) of the described specimen(s) and rendered or confirmed the diagnosis(es) related thereto. [facility] Procedure Comments ProcCreate a paraffin block - [facility] Create a paraffin block - [facility] (order for accession only, not for recut) H&E stain on level 1 slide - [facility] (order for accession only, not for recut) H&E stain on level 1 slide - [facility] (order for accession only, not for recut) H&E stain on level 1 slide - [facility] (order for accession only, not for recut) H&E stain on level 1 slide - [facility] (order for accession only, not for recut) H&E stain on level 1 slide - [facility] (order for accession only, not for recut) H&E stain on level 2 slide - [facility] (order for accession only, not for recut) H&E stain on level 2 slide - [facility] (order for accession only, not for recut) H&E stain on level 2 slide - [facility] (order for accession only, not for recut) H&E stain on level 2 slide - [facility] (order for accession only, not for recut) H&E stain on level 2 slide - H [facility] Report Accession No: [id number] Date: 1955 Sex: Male [facility] Department of Pathology [address] [place] [address] License No.: [id number] Instructor Business Education: Dr. Francesco Varma M.D., Ph.D. Physician: DAISY SHERWOOD MD, MPH Procedure Date: 03/23/2025 Pathologist: Jerome Doty M.D., M.M.Sc. PATHOLOGIC DIAGNOSIS: A. SKIN, RIGHT SHOULDER, SHAVE BIOPSY: SQUAMOUS CELL CARCINOMA, invasive, moderately to well differentiated, present at deep margin. B. SKIN, LEFT HYPOCHONDRIAC REGION OF ABDOMEN, SHAVE BIOPSY: SQUAMOUS CELL CARCINOMA, invasive, transected at base. CLINICAL DATA: History: A) 1.0 cm x 1.0 cm pink eroded papule x 1-3 months with change in size, color, and elevation B) 1.8 cm x 1.2 cm pink plaque with rolled border x 1-3 months with change in size, color, and elevation Operation: Shave biopsy Clinical Diagnosis: Squamous cell carcinoma TISSUE SUBMITTED: A/1. Right shoulder B/2. Left hypochondriac region of abdomen GROSS DESCRIPTION: The specimen is received in formalin, in two parts, each labeled with the patient's name and medical record number. Part A, labeled Right shoulder , consists of a merino-white skin shave (1.3 x 1.3 x <0.1 cm). The epithelial surface displays a merino-white elevated, crusted granulated lesion (0.9 x 1.0 x 0.2 cm), located <0.1 cm from the closest radial margin. The specimen is inked, serially sectioned, and entirely submitted. A1-A3: 2 fragments each. Part B, labeled Left hypochondriac region of abdomen , consists of a merino-white skin shave (0.7 x 0.8 x <0.1 cm). The epithelial surface displays a merino-white ill-defined, crusted lesion (0.6 x 0.5 cm), located <0.1 cm from the closest radial margin. The specimen is inked, trisected, and entirely submitted. B1-B2: 3 fragments total. Dictated by: Lashon Roberts By his/her signature below, the senior physician certifies that he/she personally conducted a microscopic examination ( gross only exam if so stated) of the described specimen(s) and rendered or confirmed the diagnosis(es) related thereto. Final Diagnosis by Jerome Doty M.D., M.M.Sc., Electronically signed on Wednesday March 26, 2025 at 03:14:04PM [facility] Conversion Type (Skin) 03/23/2025 03/24/2025 Daisy Sherwood MD, MPH PATHOLOGY ORDERABLES Edited Result - Final Performing Organization Address [facility] Co de Phone Number [facility] * PSA diagnostic (monitoring) (03/02/2025 3:48 PM EDT) Pathologist [facility] PSA Monitoring 0.41 0.00 - 4.00 ng/mL [facility] LIC# [id number] Blood 03/02/2025 3:48 PM EDT 03/02/2025 4:03 PM EDT us Bartolome Sandy MD, MS LAB BLOOD ORDERABLES Final Result Performing Organization Address [facility]/State/ZIP Co de Phone Number [facility] LIC# [id number] [address] [place] [address] * (ABNORMAL) Microalbumin/creatinine ratio, random urine (03/22/2024 12:19 PM EDT) Pathologist [facility] UR CREATININE 200.2 mg/dL [facility] Comment: No reference values apply. Interpret with other clinical data. MALB/CRE 82.9(H) 0.0 - 30.0 mg/Alb/g Cre [facility] URINE MICROALBUMIN 16.6(H) 0.0 - 2.0 mg/dL [facility] Urine (Urine) 03/22/2024 12: 19 PM EDT 03/22/2024 12:32 PM EDT us Mary Ann Alford MD, FACS URINE ORDERABLES Fin al Result Performing Organization Address City/State/[facility] Co de Phone Number [facility] [address] [place] [phone] from Last 3 Months or Most Recently Relevant to Health Maintenance Insurance MEDICARE REPLACEMENT Member Subscriber Plan / Payer (Ef fective 2016-Present) Name:Harvey Law Relation to Subscriber:Self Name:Harvey Law Payer ID:[id number] (NAIC) Group ID:[id number] Type:Medicare [address] [facility] MEDICARE REPLACEMENT ONE CARE MEDICARE REPLACEMENT CARE MEDICARE REPLACEMENT [place] [id number] Advance Directives For more information, please contact: [phone] (9AM - 5PM Alicia/[facility], Saturday-Saturday) Documents on File Type Date Recorded Patient Antique Collector Expl anation Healthcare Proxy 03/28/2024 12:50 AM * Full Code (Latest Code Status on File) Date Activated Date Inactivated Comments 03/18/2024 9:06 PM Question Answer Comments Code Status Confirmed With: Patient Care Teams Derrick Boat Captain Relationship Specialty Start Date End Date Tennille Linton NP [address] [place] [phone] PCP - General Nurse Practitioner 08/30/23 Anni Quiñonez PA [address] [place] [id number] [email or web address] Phys[facility] Lance Crewmember 08/30/23 shana myers [facility] Wardrobe Coordinator Cardiology 03/12/24 Additional Source Comments The information contained in this document represents components of the legal health record. It is not the complete legal health record.[facility]
--- OUTSIDE RECORDS SUMMARY | 2025-04-16 11:24 | XMS_ITS | Encounter Summary ---
Author Organization [facility] Address [address] [place] [phone] Care Team Providers Care Montessori Preschool Teacher Name Role Phone Michelle Rucker MD Primary Care Provider + Encounter Details Date Type Department Care Team (Late st Contact Info) Description 08/12/2024 Lab Requisition [facility] - Main Lab 299 [facility] [place] [address] Michelle Rucker MD [address] [address] Type 1 diabetes mellitus with [...] mmol/L LAB CHEMISTRY METHOD 08/13/2024 12:02 PM [facility] Potassium 4.4 3.5 - 5.5 mmol/L LAB CHEMISTRY METHOD 08/13/2024 12:02 PM [facility] Chloride 95(L) 96 - 110 mmol/L LAB CHEMISTRY METHOD 08/13/2024 12:02 PM [facility] CO2 31 21 - 32 mmol/L LAB CHEMISTRY METHOD 08/13/2024 12:02 PM [facility] Anion Gap 7 3 - 11 LAB CHEMISTRY METHOD 08/13/2024 12:02 PM [facility] Glucose 175(H) 70 - 100 mg/dL LAB CHEMISTRY METHOD 08/13/2024 12:02 PM [facility] BUN 34(H) 5 - 25 mg/dL LAB CHEMISTRY METHOD 08/13/2024 12:02 PM [facility] Creatinine 1.27 0.70 - 1.30 mg/dL LAB CHEMISTRY METHOD 08/13/2024 12:02 PM [facility] eGFR 62 >=60 mL/min/1. 73m2 LAB CHEMISTRY METHOD 08/13/2024 12:02 PM [facility] Comment:Calculation based on the Chronic Kidney Disease Epidemiology Collaboration (CKD-EPI) equation refit without adjustment for race. BUN/Creatinine Ratio 26.8 LAB CHEMISTRY METHOD 08/13/2024 12:02 PM [facility] Calcium 9.6 8.5 - 10.5 mg/dL LAB CHEMISTRY METHOD 08/13/2024 12:02 PM [facility] Blood Venous blood specimen / Unknown Venipuncture / Unknown 08/13/2024 7:21 AM EST 08/13/2024 11:12 AM EST us Michelle Rucker MD LAB BLOOD ORDERABLES Fin al Result [facility] [address] [place] [address], [place] [phone] * (ABNORMAL) Complete blood count (08/13/2024 7:21 AM EST) WBC 11.4(H) 4.8 - 10.8 K/mcL LAB HEMETOLOGY METHOD 08/13/2024 11:35 AM [facility] RBC 3.50(L) 4.50 - 5.50 M/mcL LAB HEMETOLOGY METHOD 08/13/2024 11:35 AM [facility] Hemoglobin 9.2(L) 13.5 - 17.5 g/dL LAB HEMETOLOGY METHOD 08/13/2024 11:35 AM [facility] Hematocrit 29.8(L) 42.0 - 54.0 % LAB HEMETOLOGY METHOD 08/13/2024 11:35 AM [facility] MCV 84.2 79.0 - 98.0 FL LAB HEMETOLOGY METHOD 08/13/2024 11:35 AM [facility] MCH 26.0(L) 27.0 - 32.0 pcg LAB HEMETOLOGY METHOD 08/13/2024 11:35 AM [facility] MCHC 30.9(L) 32.0 - 37.0 g/dL LAB HEMETOLOGY METHOD 08/13/2024 11:35 AM [facility] RDW 15.2(H) 11.0 - 15.0 % LAB HEMETOLOGY METHOD 08/13/2024 11:35 AM [facility] Platelets 360 130 - 400 K/mcL LAB HEMETOLOGY METHOD 08/13/2024 11:35 AM [facility] MPV 11.3(H) 7.0 - 11.0 FL LAB HEMETOLOGY METHOD 08/13/2024 11:[address] [facility] NRBC 0.0 <1.0 % LAB [facility] METHOD 08/13/2024 11:[address] [facility] NRBC Absolute 0.00 <0.10 K/mcL LAB HEMETOLOG METHOD 08/13/2024 11:[address] [facility] Blood Venous blood specimen / Unknown Venipuncture / Unknown 08/13/2024 7:21 AM EST 08/13/2024 11:12 AM EST Michelle Rucker MD LAB BLOOD ORDERABLES Fin al Result [facility] [address] [place] [address], documented in this encounter Visit Diagnoses Diagnosis [...] documented as of this encounter Care Teams Montessori Preschool Teacher Relationship Specialty Start Date End Date Michelle Rucker MD [address] [place] [phone] PCP - General Family Medicine 05/06/24 documented as of this encounter
--- OUTSIDE RECORDS SUMMARY | 2025-04-16 11:24 | XMS_ITS | Encounter Summary ---
Author Organization [facility] Address [address] [place] [phone] Care Team Providers Care Microfilm Mounter Name Role Phone Michelle Rucker MD Primary Care Provider + Encounter Details Date Type Department Care Team (Late st Contact Info) Description 08/06/2024 Lab Requisition [facility] - Main Lab [address] [facility] [place] [address] Michelle Rucker MD [address] [address] Vitamin D deficiency, unspecified; Malignant [...] Hemoglobin A1c (08/07/2024 6:48 AM EST) Pathologist [facility] Hemoglobin A1C 8.5(H) <6.5 % LAB CHEMISTRY METHOD 08/07/2024 11:[address] [facility] Mean Bld Glu Estim. 197 mg/dL LAB CHEMISTRY METHOD 08/07/2024 11:[address] [facility] Blood Venous blood specimen / Unknown Venipuncture / Unknown 08/07/2024 6:48 AM EST 08/07/2024 8:30 AM EST Michelle Rucker MD LAB BLOOD ORDERABLES Fin al Result Performing Organization Address [facility]/ZIP Co de Phone Number [facility] [address] [place] [address], * Vitamin D 25 hydroxy (08/07/2024 6:48 AM EST) [facility] Vit D, 25-Hydroxy 49.9 30.0 - 80.0 ng/mL LAB CHEMISTRY METHOD 08/07/2024 10:[address] [facility] Blood Venous blood specimen / Unknown Venipuncture / Unknown 08/07/2024 6:48 AM EST 08/07/2024 8:30 AM EST Michelle Rucker MD LAB BLOOD ORDERABLES Fin al Result Performing Organization Address City/[facility]/ZIP Co de Phone Number [facility] [address] [place] [address], * Vitamin B12 (08/07/2024 6:48 AM EST) [facility] Vitamin B-12 670 250 - 900 pcg/mL LAB CHEMISTRY METHOD 08/07/2024 10:[address] [facility] Blood Venous blood specimen / Unknown Venipuncture / Unknown 08/07/2024 6:48 AM EST 08/07/2024 8:30 AM EST Michelle Rucker MD LAB BLOOD ORDERABLES Fin al Result Performing Organization Address City/[facility]/ZIP Co de Phone Number [facility] [address] [place] [address], [place] [phone] * Folate (08/07/2024 6:48 AM EST) Folate 8.7 2.8 - 17.0 ng/ml LAB CHEMISTRY METHOD 08/07/2024 10:[address] [facility] Blood Venous blood specimen / Unknown Venipuncture / Unknown 08/07/2024 6:48 AM EST 08/07/2024 8:30 AM EST Michelle Rucker MD LAB BLOOD ORDERABLES Fin al Result Performing Organization Address City/[facility]/ZIP Co de Phone Number [facility] [address] [place] [address], [place] [phone] * Magnesium (08/07/2024 6:48 AM EST) Magnesium 2.0 1.9 - 2.6 mg/dL LAB CHEMISTRY METHOD 08/07/2024 10:[address] [facility] Blood Venous blood specimen / Unknown Venipuncture / Unknown 08/07/2024 6:48 AM EST 08/07/2024 8:30 AM EST Michelle Rucker MD LAB BLOOD ORDERABLES Fin al Result [facility] [address] [place] [address], [place] [phone] * (ABNORMAL) Comprehensive metabolic panel (08/07/2024 6:48 AM EST) Sodium 134 133 - 145 mmol/L LAB CHEMISTRY METHOD 08/07/2024 10:47 AM [facility] Potassium 4.7 3.5 - 5.5 mmol/L LAB CHEMISTRY METHOD 08/07/2024 10:47 AM [facility] Chloride 100 96 - 110 mmol/L LAB CHEMISTRY METHOD 08/07/2024 10:47 AM [facility] CO2 27 21 - 32 mmol/L LAB CHEMISTRY METHOD 08/07/2024 10:47 AM [facility] Anion Gap 7 3 - 11 LAB CHEMISTRY METHOD 08/07/2024 10:47 AM [facility] Glucose 185(H) 70 - 100 mg/dL LAB CHEMISTRY METHOD 08/07/2024 10:47 AM [facility] BUN 23 5 - 25 mg/dL LAB CHEMISTRY METHOD 08/07/2024 10:47 AM [facility] Creatinine 1.41(H) 0.70 - 1.30 mg/dL LAB CHEMISTRY METHOD 08/07/2024 10:47 AM [facility] eGFR 55(L) >=60 mL/min/1. 73m2 LAB CHEMISTRY METHOD 08/07/2024 10:47 AM [facility] Comment:Calculation based on the Chronic Kidney Disease Epidemiology Collaboration (CKD-EPI) equation refit without adjustment for race. BUN/Creatinine Ratio 16.3 LAB CHEMISTRY METHOD 08/07/2024 10:47 AM [facility] Calcium 9.3 8.5 - 10.5 mg/dL LAB CHEMISTRY METHOD 08/07/2024 10:47 AM [facility] AST (SGOT) 15 10 - 42 unit/L LAB CHEMISTRY METHOD 08/07/2024 10:47 AM [facility] ALT (SGPT) 13 10 - 60 unit/L LAB CHEMISTRY METHOD 08/07/2024 10:47 AM [facility] Alkaline Phosphatase 76 42 - 121 unit/L LAB CHEMISTRY METHOD 08/07/2024 10:47 AM [facility] Total Protein 6.6 6.0 - 8.0 g/dL LAB CHEMISTRY METHOD 08/07/2024 10:47 AM [facility] Albumin 2.1(L) 3.2 - 5.0 g/dL LAB CHEMISTRY METHOD 08/07/2024 10:47 AM [facility] Total Bilirubin 0.3 0.0 - 1.4 mg/dL LAB CHEMISTRY METHOD 08/07/2024 10:47 AM [facility] Blood Venous blood specimen / Unknown Venipuncture / Unknown 08/07/2024 6:48 AM EST 08/07/2024 8:30 AM EST Michelle Rucker MD LAB BLOOD ORDERABLES Fin al Result [facility] [address] [place] [address], * (ABNORMAL) Complete blood count (08/07/2024 6:48 AM EST) WBC 9.7 4.8 - 10.8 K/mcL LAB HEMETOLOGY METHOD 08/07/2024 9:54 AM [facility] RBC 3.80(L) 4.50 - 5.50 M/[facility] LAB HEMETOLOGY METHOD 08/07/2024 9:54 AM [facility] Hemoglobin 9.7(L) 13.5 - 17.5 g/dL LAB HEMETOLOGY METHOD 08/07/2024 9:54 AM [facility] Hematocrit 31.1(L) 42.0 - 54.0 % LAB HEMETOLOGY METHOD 08/07/2024 9:54 AM [facility] MCV 82.3 79.0 - 98.0 FL LAB HEMETOLOGY METHOD 08/07/2024 9:[address] [facility] MCH 25.7(L) 27.0 - 32.0 pcg LAB HEMETOLOGY METHOD 08/07/2024 9:54 AM [facility] MCHC 31.2(L) 32.0 - 37.0 g/dL LAB HEMETOLOGY METHOD 08/07/2024 9:[address] [facility] RDW 15.9(H) 11.0 - 15.0 % LAB HEMETOLOGY METHOD 08/07/2024 9:[address] [facility] Platelets 277 130 - 400 K/mcL LAB HEMETOLOGY METHOD 08/07/2024 9:54 AM [facility] MPV 10.8 7.0 - 11.0 FL LAB HEMETOLOGY METHOD 08/07/2024 9:[address] [facility] NRBC 0.0 <1.0 % LAB HEMETOLOGY METHOD 08/07/2024 9:54 AM [facility] NRBC Absolute 0.00 <0.10 K/mcL LAB HEMETOLOGY METHOD 08/07/2024 9:54 AM [facility] Blood Venous blood specimen / Unknown Venipuncture / Unknown 08/07/2024 6:48 AM EST 08/07/2024 8:30 AM EST us Michelle Rucker MD LAB BLOOD ORDERABLES Fin al Result 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 difficile Rule-Out 08/14/2024 08/13/20242024 11:06 AM EST MDRO (other) 12/15/2024 12/15/2024 documented as of this encounter Care Teams Microfilm Mounter Relationship Specialty Start Date End Date Michelle Rucker MD [address] [place] [address] PCP - General Family Medicine 05/06/24 documented as of this encounter
--- OUTSIDE RECORDS SUMMARY | 2025-04-16 11:24 | XMS_ITS | Encounter Summary ---
Author Organization [facility] Address [address] [place] [phone] Care Team Providers Care Stereotyper Apprentice Name Role Phone Michelle Rucker MD Primary Care Provider + Encounter Details Date Type Department Care Team (Late st Contact Info) Description 07/07/2024 Lab Requisition [facility] - Main Lab 299 [facility] [place] [address] Michelle Rucker MD [address] [address] Heart failure, unspecified (CMS/HCC V24, [...] mmol/L LAB CHEMISTRY METHOD 07/08/2024 10:15 AM [facility] Potassium 4.4 3.5 - 5.5 mmol/L LAB CHEMISTRY METHOD 07/08/2024 10:15 AM [facility] Chloride 101 96 - 110 mmol/L LAB CHEMISTRY METHOD 07/08/2024 10:15 AM [facility] CO2 27 21 - 32 mmol/L LAB CHEMISTRY METHOD 07/08/2024 10:15 AM [facility] Anion Gap 7 3 - 11 LAB CHEMISTRY METHOD 07/08/2024 10:15 AM [facility] Glucose 342(H) 70 - 100 mg/dL LAB CHEMISTRY METHOD 07/08/2024 10:15 AM [facility] BUN 33(H) 5 - 25 mg/dL LAB CHEMISTRY METHOD 07/08/2024 10:15 AM [facility] Creatinine 1.50(H) 0.70 - 1.30 mg/dL LAB CHEMISTRY METHOD 07/08/2024 10:15 AM [facility] eGFR 51(L) >=60 mL/min/1. 73m2 LAB CHEMISTRY METHOD 07/08/2024 10:15 AM [facility] Comment:Calculation based on the Chronic Kidney Disease Epidemiology Collaboration (CKD-EPI) equation refit without adjustment for race. BUN/Creatinine Ratio 22.0 LAB CHEMISTRY METHOD 07/08/2024 10:15 AM [facility] Calcium 9.3 8.5 - 10.5 mg/dL LAB CHEMISTRY METHOD 07/08/2024 10:15 AM [facility] AST (SGOT) 14 10 - 42 unit/L LAB CHEMISTRY METHOD 07/08/2024 10:15 AM [facility] ALT (SGPT) 12 10 - 60 unit/L LAB CHEMISTRY METHOD 07/08/2024 10:15 AM [facility] Alkaline Phosphatase 74 42 - 121 unit/L LAB CHEMISTRY METHOD 07/08/2024 10:15 AM [facility] Total Protein 6.8 6.0 - 8.0 g/dL LAB CHEMISTRY METHOD 07/08/2024 10:15 AM [facility] Albumin 2.6(L) 3.2 - 5.0 g/dL LAB CHEMISTRY METHOD 07/08/2024 10:15 AM [facility] Total Bilirubin 0.4 0.0 - 1.4 mg/dL LAB CHEMISTRY METHOD 07/08/2024 10:15 AM [facility] Blood Venous blood specimen / Unknown Venipuncture / Unknown 07/08/2024 5:38 AM EST 07/08/2024 8:44 AM EST us Michelle Rucker MD LAB BLOOD ORDERABLES Fin al Result [facility] [address] [place] [address], * (ABNORMAL) Complete blood count (07/08/2024 5:38 AM EST) WBC 9.1 4.8 - 10.8 K/mcL LAB HEMETOLOGY METHOD 07/08/2024 8:56 AM [facility] RBC 4.70 4.50 - 5.50 M/mcL LAB HEMETOLOGY METHOD 07/08/2024 8:56 AM [facility] Hemoglobin 12.4(L) 13.5 - 17.5 g/dL LAB HEMETOLOGY METHOD 07/08/2024 8:56 AM EST [facility] Hematocrit 39.6(L) 42.0 - 54.0 % LAB HEMETOLOGY METHOD 07/08/2024 8:56 AM [facility] MCV 83.7 79.0 - 98.0 FL LAB HEMETOLOGY METHOD 07/08/2024 8:56 AM [facility] MCH 26.2(L) 27.0 - 32.0 pcg LAB HEMETOLOGY METHOD 07/08/2024 8:56 AM EST [facility] MCHC 31.3(L) 32.0 - 37.0 g/dL LAB HEMETOLOGY METHOD 07/08/2024 8:56 AM [facility] RDW 15.8(H) 11.0 - 15.0 % LAB HEMETOLOGY METHOD 07/08/2024 8:56 AM [facility] Platelets 252 130 - 400 K/mcL LAB HEMETOLOGY METHOD 07/08/2024 8:56 AM EST [facility] MPV 11.3(H) 7.0 - 11.0 FL LAB HEMETOLOGY METHOD 07/08/2024 8:56 AM EST [facility] NRBC 0.0 <1.0 % LAB HEMETOLOGY METHOD 07/08/2024 8:56 AM [facility] NRBC Absolute 0.00 <0.10 K/mcL LAB HEMETOLOGY METHOD 07/08/2024 8:56 AM [facility] Blood Venous blood specimen / Unknown Venipuncture / Unknown 07/08/2024 5:38 AM EST 07/08/2024 8:44 AM EST us Michelle Rucker MD LAB BLOOD ORDERABLES Fin al Result [facility] [address] [place] [address], documented in this encounter Visit Diagnoses Diagnosis Heart failure, unspecified ([facility] V24, [facility] V28) Heart failure, unspecified Vitamin D deficiency, unspecified Hyperlipidemia, unspecified Anemia, unspecified Type 1 diabetes mellitus with diabetic neuropathy, unspecified ([facility] V24, [facility] V28) 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 difficile Rule-Out 08/14/2024 08/13/20242024 11:06 AM EST MDRO (other) 12/15/2024 12/15/2024 documented as of this encounter Care Teams Stereotyper Apprentice Relationship Specialty Start Date End Date Michelle Rucker MD [address] [address] PCP - General Family Medicine 05/06/24 documented as of this encounter
--- OUTSIDE RECORDS SUMMARY | 2025-04-16 11:24 | XMS_ITS | Encounter Summary ---
Author Organization [facility] Address [address] [place] [phone] Care Team Providers Care Lobby Attendant Name Role Phone Michelle Rucker MD Primary Care Provider + Encounter Details Date Type Department Care Team (Late st Contact Info) Description 08/13/2024 Lab Requisition [facility] - Main Lab [address] [place] [address] Michelle Rucker MD [address] [phone] Urinary tract infection, site not specified Social [...] reflex microscopic (08/12/2024 10:00 PM EST) Specific [place] Urine 1.009 1.003 - 1.030 LAB URINALYSIS [...] - AUTOMATED METHOD 08/13/2024 12:01 PM EST [facility] Hyaline Casts, Urine 3.0 0 - 3 /LPF LAB URINALYSIS - AUTOMATED METHOD 08/13/2024 12:01 PM EST [facility] Yeast, Urine 3+(A) None /HPF 08/13/2024 12:01 PM EST [facility] Comment:This is an appended report. These results have been appended to a previously final verified report. Urine Urine specimen from urethra / Unknown 08/12/2024 10:00 PM EST 08/13/2024 11:23 AM EST Michelle Rucker MD LAB URINE ORDERABLES Cristian michael Result - Final Performing Organization Address [facility]/ZIP Co de Phone Number [facility] [address] [place] [address], [place] [phone] * (ABNORMAL) Culture urine (08/12/2024 10:00 PM EST) Culture, Urine 50,000-100, 000 CFU/mL Yolande albicans/du bliniensis( A) 08/15/2024 1:21 PM EST [facility] Comment: Edited result: Previously reported as Yeast on 08/14/2024 at 1054 EST. Urine Urine specimen from urethra / Unknown 08/12/2024 10:00 PM EST 08/13/2024 11:23 AM EST Michelle Rucker MD LAB MICROBIOLOGY - GENER AL ORDERABLES Final Result [facility] [address] [place] [address], [place] [phone] documented in this encounter Visit Diagnoses Diagnosis Urinary tract infection, site not specified documented in this encounter Additional Health Concerns Infection Onset Date Last Indicated Resolved Time C. difficile Rule-Out 08/14/2024 08/13/20242024 11:06 AM EST MDRO (other) 12/15/2024 12/15/2024 documented as of this encounter Care Teams Lobby Attendant Relationship Specialty Start Date End Date Mcihelle Rucker MD [address] [address] PCP - General Family Medicine 05/06/24 documented as of this encounter
--- OUTSIDE RECORDS SUMMARY | 2025-04-16 11:24 | XMS_ITS | Encounter Summary ---
Author Organization [facility] Address [address] [place] [phone] Care Team Providers Care Director [facility] Name Role Phone Michelle Rucekr MD Primary Care Provider + Encounter Details Date Type Department Care Team (Late st Contact Info) Description 07/30/2024 Lab Requisition [facility] - Main Lab 299 [facility] [employer] [place] [address] Michelle Rucker MD [address] [phone] Kidney transplant status; Malignant (primary) neoplasm, unspecified [...] as of this encounter Care Teams Director [facility] Relationship Specialty Start Date End Date Michelle Rucker MD [address] [address] PCP - General Family Medicine 05/06/24 documented as of this encounter
--- OUTSIDE RECORDS SUMMARY | 2025-04-16 11:24 | XMS_ITS | Encounter Summary ---
Author Organization [facility] Address [id number] [place] [id number] Care Team Providers Care Pastor Name Role Phone Michelle Rucker MD Primary Care Provider + Encounter Details Date Type Department Care Team (Late st Contact Info) Description 07/24/2024 Lab Requisition [facility] - Main Lab [address] [facility] [place] [address] Michelle Rucker MD [address] [address] Malignant (primary) neoplasm, unspecified (CMS/HCC [...] LAB CHEMISTRY METHOD 07/24/2024 11:18 AM EST [facility] Blood Venous blood specimen / Unknown Venipuncture / Unknown 07/24/2024 7:23 AM EST 07/24/2024 9:40 AM EST Michelle Rucker MD LAB BLOOD ORDERABLES Fin al Result Performing Organization Address City/[facility]/ZIP Co de Phone Number [facility] [address] [place] [address], * Vitamin D 25 hydroxy (07/24/2024 7:23 AM EST) Vit D, 25-Hydroxy 48.6 30.0 - 80.0 ng/mL LAB CHEMISTRY METHOD 07/24/2024 11:01 AM EST [facility] Blood Venous blood specimen / Unknown Venipuncture / Unknown 07/24/2024 7:23 AM EST 07/24/2024 9:40 AM EST Michelle Rucker MD LAB BLOOD ORDERABLES Fin al Result [facility] [address] [place] [address], * Folate (07/24/2024 7:23 AM EST) Folate 9.0 2.8 - 17.0 ng/ml LAB CHEMISTRY METHOD 07/24/2024 11:18 AM EST [facility] Blood Venous blood specimen / Unknown Venipuncture / Unknown 07/24/2024 7:23 AM EST 07/24/2024 9:40 AM EST Michelle Rucker MD LAB BLOOD ORDERABLES Fin al Result Performing Organization Address [facility]/ZIP Co de Phone Number [facility] [address] [place] [address], * (ABNORMAL) Magnesium (07/24/2024 7:23 AM EST) Magnesium 1.7(L) 1.9 - 2.6 mg/dL LAB CHEMISTRY METHOD 07/24/2024 10:52 AM EST [facility] Blood Venous blood specimen / Unknown Venipuncture / Unknown 07/24/2024 7:23 AM EST 07/24/2024 9:40 AM EST Michelle Rucker MD LAB BLOOD ORDERABLES Fin al Result Performing Organization Address [facility] Co de Phone Number [facility] [address] [place] [address], * Thyroid stimulating hormone (07/24/2024 7:23 AM EST) TSH 3.67 0.40 - 4.00 mcIU/mL LAB CHEMISTRY METHOD 07/24/2024 11:01 AM EST [facility] Blood Venous blood specimen / Unknown Venipuncture / Unknown 07/24/2024 7:23 AM EST 07/24/2024 9:40 AM EST Michelle Rucker MD LAB BLOOD ORDERABLES Fin al Result Performing Organization Address City/[facility]/ZIP Co de Phone Number [facility] [address] [place] [address], [place] [phone] * (ABNORMAL) Hemoglobin A1c (07/24/2024 7:23 AM EST) Hemoglobin A1C 8.3(H) <6.5 % LAB CHEMISTRY METHOD 07/24/2024 1:50 PM EST [facility] Mean Bld Glu Estim. 192 mg/dL LAB CHEMISTRY METHOD 07/24/2024 1:50 PM [facility] Blood Venous blood specimen / Unknown Venipuncture / Unknown 07/24/2024 7:23 AM EST 07/24/2024 9:40 AM EST us Michelle Rucker MD LAB BLOOD ORDERABLES Fin al Result [facility] [address] [place] [address], * (ABNORMAL) Renal function panel (07/24/2024 7:23 AM EST) [facility] Sodium 130(L) 133 - 145 mmol/L LAB CHEMISTRY METHOD 07/24/2024 10:55 AM [facility] Potassium 5.3 3.5 - 5.5 mmol/L LAB CHEMISTRY METHOD 07/24/2024 10:55 AM [facility] Chloride 98 96 - 110 mmol/L LAB CHEMISTRY METHOD 07/24/2024 10:55 AM [facility] CO2 26 21 - 32 mmol/L LAB CHEMISTRY METHOD 07/24/2024 10:55 AM [facility] Anion Gap 6 3 - 11 LAB CHEMISTRY METHOD 07/24/2024 10:55 AM [facility] Glucose 335(H) 70 - 100 mg/dL LAB CHEMISTRY METHOD 07/24/2024 10:55 AM [facility] BUN 23 5 - 25 mg/dL LAB CHEMISTRY METHOD 07/24/2024 10:55 AM [facility] Creatinine 1.22 0.70 - 1.30 mg/dL LAB CHEMISTRY METHOD 07/24/2024 10:55 AM [facility] eGFR 65 >=60 mL/min/1. 73m2 LAB CHEMISTRY METHOD 07/24/2024 10:55 AM [facility] Comment:Calculation based on the Chronic Kidney Disease Epidemiology Collaboration (CKD-EPI) equation refit without adjustment for race. BUN/Creatinine Ratio 18.9 LAB CHEMISTRY METHOD 07/24/2024 10:55 AM [facility] Albumin 2.5(L) 3.2 - 5.0 g/dL LAB CHEMISTRY METHOD 07/24/2024 10:55 AM [facility] Calcium 9.4 8.5 - 10.5 mg/dL LAB CHEMISTRY METHOD 07/24/2024 10:55 AM [facility] Phosphorus 3.7 2.5 - 4.5 mg/dL LAB CHEMISTRY METHOD 07/24/2024 10:55 AM [facility] Blood Venous blood specimen / Unknown Venipuncture / Unknown 07/24/2024 7:23 AM EST 07/24/2024 9:40 AM EST Michelle Rucker MD LAB BLOOD ORDERABLES Fin al Result [facility] [address] [place] [address], * (ABNORMAL) Basic metabolic panel (07/24/2024 7:23 AM EST) Sodium 130(L) 133 - 145 mmol/L LAB CHEMISTRY METHOD 07/24/2024 10:55 AM [facility] Potassium 5.3 3.5 - 5.5 mmol/L LAB CHEMISTRY METHOD 07/24/2024 10:55 AM [facility] Chloride 98 96 - 110 mmol/L LAB CHEMISTRY METHOD 07/24/2024 10:55 AM [facility] CO2 26 21 - 32 mmol/L LAB CHEMISTRY METHOD 07/24/2024 10:55 AM [facility] Anion Gap 6 3 - 11 LAB CHEMISTRY METHOD 07/24/2024 10:55 AM [facility] Glucose 335(H) 70 - 100 mg/dL LAB CHEMISTRY METHOD 07/24/2024 10:55 AM [facility] BUN 23 5 - 25 mg/dL LAB CHEMISTRY METHOD 07/24/2024 10:55 AM [facility] Creatinine 1.22 0.70 - 1.30 mg/dL LAB CHEMISTRY METHOD 07/24/2024 10:55 AM [facility] eGFR 65 >=60 mL/min/1. 73m2 LAB CHEMISTRY METHOD 07/24/2024 10:55 AM [facility] Comment: Calculation based on the Chronic Kidney Disease Epidemiology Collaboration (CKD-EPI) equation refit without adjustment for race. Calculation based on the Chronic Kidney Disease Epidemiology Collaboration (CKD-EPI) equation refit without adjustment for race. BUN/Creatinine Ratio 18.9 LAB CHEMISTRY METHOD 07/24/2024 10:55 AM [facility] Calcium 9.4 8.5 - 10.5 mg/dL LAB CHEMISTRY METHOD 07/24/2024 10:55 AM [facility] Blood Venous blood specimen / Unknown Venipuncture / Unknown 07/24/2024 7:23 AM EST 07/24/2024 9:40 AM EST us Michelle Rucker MD LAB BLOOD ORDERABLES Fin al Result [facility] [address] [place] [address], * (ABNORMAL) Complete blood count (07/24/2024 7:23 AM EST) WBC 10.2 4.8 - 10.8 K/mcL LAB HEMETOLOGY METHOD 07/24/2024 10:29 AM EST [facility] RBC 4.40(L) 4.50 - 5.50 M/mcL LAB HEMETOLOGY METHOD 07/24/2024 10:29 AM [facility] Hemoglobin 11.3(L) 13.5 - 17.5 g/dL LAB HEMETOLOGY METHOD 07/24/2024 10:29 AM [facility] Hematocrit 36.1(L) 42.0 - 54.0 % LAB HEMETOLOGY METHOD 07/24/2024 10:29 AM [facility] MCV 82.8 79.0 - 98.0 FL LAB HEMETOLOGY METHOD 07/24/2024 10:29 AM [facility] MCH 25.9(L) 27.0 - 32.0 pcg LAB HEMETOLOGY METHOD 07/24/2024 10:29 AM [facility] MCHC 31.3(L) 32.0 - 37.0 g/dL LAB HEMETOLOGY METHOD 07/24/2024 10:29 AM [facility] RDW 16.6(H) 11.0 - 15.0 % LAB HEMETOLOGY METHOD 07/24/2024 10:29 AM [facility] Platelets 276 130 - 400 K/mcL LAB HEMETOLOGY METHOD 07/24/2024 10:29 AM [facility] MPV 10.5 7.0 - 11.0 FL LAB HEMETOLOGY METHOD 07/24/2024 10:29 AM [facility] NRBC 0.0 <1.0 % LAB HEMETOLOGY METHOD 07/24/2024 10:29 AM [facility] NRBC Absolute 0.00 <0.10 K/mcL LAB HEMETOLOGY METHOD 07/24/2024 10:29 AM [facility] Blood Venous blood specimen / Unknown Venipuncture / Unknown 07/24/2024 7:23 AM EST 07/24/2024 9:40 AM EST Michelle Rucker MD LAB BLOOD ORDERABLES Fin al Result [facility] ([facility]) [facility] [address] [place] [address], documented in this encounter Visit Diagnoses Diagnosis Malignant (primary) neoplasm, unspecified (CMS/[facility] V24, [facility] V28) Unspecified complication of kidney transplant Type 1 diabetes mellitus with diabetic neuropathy, unspecified (CMS/[facility] V24, [facility] V28) Gastro-esophageal reflux disease without esophagitis Vitamin D deficiency, unspecified documented in this encounter Additional Health Concerns Infection Onset Date Last Indicated Resolved Time C. difficile Rule-Out 08/14/2024 08/13/20242024 11:06 AM EST MDRO (other) 12/15/2024 12/15/2024 documented as of this encounter Care Teams Pastor Relationship Specialty Start Date End Date Michelle Rucker MD [address] [place] [phone] PCP - General Family Medicine 05/06/24 documented as of this encounter
--- OUTSIDE RECORDS SUMMARY | 2025-04-16 11:24 | XMS_ITS | Encounter Summary ---
Author Organization [facility] Address [id number] [place] [phone] Care Team Providers Care Deputy Commissioner Name Role Phone Michelle Rucker MD Primary Care Provider + Encounter Details Date Type Department Care Team (Late st Contact Info) Description 08/08/2024 Lab Requisition [facility] - Main Lab [address] [place] [address] Michelle Rucker MD [address] [phone] Hyperlipidemia, unspecified Social History Tobacco Use Types [...] LAB CHEMISTRY METHOD 08/08/2024 9:26 AM EST [facility] Potassium 4.6 3.5 - 5.5 mmol/L LAB CHEMISTRY METHOD 08/08/2024 9:26 AM EST [facility] Chloride 96 96 - 110 mmol/L LAB CHEMISTRY METHOD 08/08/2024 9:26 AM EST [facility] CO2 28 21 - 32 mmol/L LAB CHEMISTRY METHOD 08/08/2024 9:26 AM [facility] Anion Gap 6 3 - 11 LAB CHEMISTRY METHOD 08/08/2024 9:26 AM [facility] Glucose 257(H) 70 - 100 mg/dL LAB CHEMISTRY METHOD 08/08/2024 9:26 AM [facility] BUN 25 5 - 25 mg/dL LAB CHEMISTRY METHOD 08/08/2024 9:26 AM [facility] Creatinine 1.44(H) 0.70 - 1.30 mg/dL LAB CHEMISTRY METHOD 08/08/2024 9:26 AM [facility] eGFR 54(L) >=60 mL/min/1. 73m2 LAB CHEMISTRY METHOD 08/08/2024 9:26 AM [facility] Comment:Calculation based on the Chronic Kidney Disease Epidemiology Collaboration (CKD-EPI) equation refit without adjustment for race. BUN/Creatinine Ratio 17.4 LAB CHEMISTRY METHOD 08/08/2024 9:26 AM [facility] Calcium 9.4 8.5 - 10.5 mg/dL LAB CHEMISTRY METHOD 08/08/2024 9:26 AM [facility] Blood Venous blood specimen / Unknown Venipuncture / Unknown 08/08/2024 6:19 AM EST 08/08/2024 7:50 AM EST us Michelle Rucker MD LAB BLOOD ORDERABLES Fin al Result [facility] [address] [place] [address], documented in this encounter Visit Diagnoses Diagnosis Hyperlipidemia, unspecified documented in this encounter Additional Health Concerns Infection Onset Date Last Indicated Resolved Time C. difficile Rule-Out 08/14/2024 08/13/20242024 11:06 AM EST MDRO (other) 12/15/2024 12/15/2024 documented as of this encounter Care Teams Deputy Commissioner Relationship Specialty Start Date End Date Michelle Rucker MD [address] [place] [address] PCP - General Family Medicine 05/06/24 documented as of this encounter
--- OUTSIDE RECORDS SUMMARY | 2025-04-16 11:24 | XMS_ITS | Encounter Summary ---
Author Organization [facility] Address [address] [place] [phone] Care Team Providers Care Before And After School Daycare Worker Name Role Phone Michelle Rucker MD Primary Care Provider + Encounter Details Date Type Department Care Team (Late st Contact Info) Description 08/10/2024 Lab Requisition [facility] - Main Lab [address] [place] [address] Michelle Rucker MD [address] [phone] Type 1 diabetes mellitus without complications (CMS/HCC [...] EST Type 1 diabetes mellitus without complications (CMS/[facility]) documented in this encounter Results * (ABNORMAL) Hemoglobin A1c (08/10/2024 5:55 AM EST) Hemoglobin A1C 8.5(H) <6.5 % LAB CHEMISTRY METHOD 08/10/2024 1:40 PM EST [facility] Mean Bld Glu Estim. 197 mg/dL LAB CHEMISTRY METHOD 08/10/2024 1:40 PM EST [facility] Blood Venous blood specimen / Unknown Venipuncture / Unknown 08/10/2024 5:55 AM EST 08/10/2024 10:32 AM EST Michelle Rucker MD LAB BLOOD ORDERABLES Fin al Result [facility] ([facility]) [facility] [address] [place] [address], documented in this encounter Visit Diagnoses Diagnosis Type 1 diabetes mellitus without complications (CMS/HCC V24, CMS/HCC V28) documented in this encounter Additional Health Concerns Infection Onset Date Last Indicated Resolved Time C. difficile Rule-Out 08/14/2024 08/13/20242024 11:06 AM EST MDRO (other) 12/15/2024 12/15/2024 documented as of this encounter Care Teams Before And After School Daycare Worker Relationship Specialty Start Date End Date Michelle Rucker MD [address] [place] [phone] PCP - General Family Medicine 05/06/24 documented as of this encounter
--- OUTSIDE RECORDS SUMMARY | 2025-04-16 11:24 | XMS_ITS | Data Portability ---
Author Organization [facility], [facility] Address [address] [place] [address] Care Team Providers Care Historical Guide Name Role Phone GERARDO RHOADES Primary Care Provider [phone] HIM CCA OTHER Assessment Encounter Date Assessment Date Assessment LastModified by Organization Details LastModified Time 01/01/2025 01/01/2025 I provided real -time medical direction via phone for this encounter and was available for additional phone-based assistance as needed. I have reviewed and agree with the Assessment and Plan as documented by the Roll Hauler. Patient given the opportunity to ask questions. Our service contacted for an assessment of: Urinary symptoms As per above, patient withmarcedney transplant. Has been treated off and on for UTIs with transplant Team. Last abx Saturday. + history of frequent urinary tract infections. Denies fever, chills, abdominal pain, back pain, flank pain. Gave sample to transplant team and awaiting call back for treatment Per geriatric social worker on the scene, Vital signs are stable [...] We discussed the need to seek care urgently/emergent ly in the setting of any new or worsening serious symptoms, particularly fever chills [email or web address] Not available 01/01/2025 17:02:56 01/13/2025 01/13/2025 Mr. Law presents with request from family for assistance with straight catheterization. Vital signs are within normal limits exam is otherwise unremarkable per geriatric social worker. Straight catherization was performed which per geriatric social worker was challenging and a large clot was found stuck in the tubing. He subsequently had a aguero catheter placed with good success, draining yellow clear urine. He does have a follow-up appointment with urology tomorrow. At this time he appears safe to remain at home and he and family are satisfied with plan of care as above. Not available 01/13/2025 16:21:06 02/01/2025 02/01/2025 Impression: 69yo/m with highly complex medical problems as documented in chart who presents for visit for nausea and vomiting. Patient is 69yo/m, hx of kidney transplant, recurrent UTIs followed by nephrology and urology, including prior MRSA UTIs. Patient with additional history of head and neck cancer, now G tube dependent, prior CVA. Patient follows with outpatient providers, most recently diagnosed with UTI and just finished course of cefpodoxime yesterday. In setting of patient's treatment began to develop some nausea and vomiting, last evening had episode of vomiting, today feeling nausea and had episode of dry heaves . Requested evaluation in the home. For medic in home patient is awake, alert, in no distress. Vitals show low grade temperature of 100.0F, but is normotensive, relative tachycardia to 98, no hypoxia. No associated chest pain, abdominal pain, flank pain. No changes in mentation, at his baseline mental status, baseline neurologic status. Having some generalized weakness/fatigue, but no other localizing signs or symptoms. Is urinating normally, making good amount of urine per family. They deny other ROS. Plan: Patient with very complex history including recurrent UTIs and several course of recent antibiotic treatment. He underwent POC labs as above, his creatinine is near his baseline, reported to be recent baseline of 1.1-1.2. Normal bicarb, AG, lactate. Slightly depressed sodium, normal K, depressed chloride. Discussed at length with family caregivers, they are very reluctant to have patient back at the hospital and goals of care are to keep patient at home if at all possible. I am concerned he may have persistent urinary infection, however I don't believe more antibiotics at this time without culture data are appropriate given his multiple prior courses and finishing antibiotics within last 24 hours. After patient centered discussion, family's goals are to treat nausea with anti-emetics, hydrate with IVFs, and will send urine culture out for patient's primary physicians to followup on. [facility] had recommended repeat urine culture. Patient is at high risk of deterioration given his underlying medical conditions, and I advised strongly that if patient develops any acute worsening or change in symptoms he would need to seek care in ED immediately which they understand, otherwise I advised they call primary doctors today to arrange expedited followup and continue his medical evaluation. Update: I was informed by medic he was unable to place a peripheral IV. Zofran IM given, plan to hydrate via g tube, urine culture will be sent for followup Primary care, consider 24 hour followup Disposition: We discussed the diagnostic uncertainty of home visits and the risk associated with this. In this case, the patient and I felt this to be an acceptable and reasonable amount of risk given the benefit of avoiding an ED visit. We discussed the need to seek care urgently/emergent ly in the setting of any new or worsening serious symptoms [email or web address] Not available 02/01/2025 13:36:35 02/09/2025 02/09/2025 As noted, we wer e called to see this patient regarding concerns of right upper quadrant pain. Evaluation in the field was performed by my geriatric social worker colleague, as noted above, I provided real-time direction and supervision for this visit. The evaluation revealed Pt is a 69 y/o male with a past medical hx of Organ Transplant, Hypertension, Diabetes Mellitus Type 2, Hyperlipidemia, Stroke, Cancer Who presents with right upper quadrant abdominal pain. On exam done by the geriatric social worker, the patient has normal vital signs. He also has some right flank pain. He is tender to palpation to the right upper quadrant and the right flank. On the exam done by the geriatric social worker, he still has his gallbladder. The patient has a complicated medical history. He also could have a pyleonephritis going on. He did have some leukocytes in his urinalysis. We will go ahead and send him to the ER at [facility]. I called an expect report. Impression: right upper quadrant pain Plan: 1) sent to the Er for eval 2) UA shows leukocytes and BMP no abnormalities Primary care, consider f/u er visit Disposition: to the Er at [facility]. I called a report We discussed the situation and I recommended referral to the emergency department. This was based on abdominal pain [email or web address] Not available 02/09/2025 11:35:16 Plan of Treatment Reminders Order Date Submit Date Provider Last Modified By Organization Details Last Modified Time Details Appointments None recorded. Lab urinalysis, dipstick 2024 025 [facility], [address] [place] [address], [id number] 12:24:39 BMP, serum or plasma 2024 025 [facility], [address] [place] [address], [id number] 12:25:00 BMP, serum or plasma 2024 [facility], [address] [place] [address], [id number] 13:02:42 hemoglobin + hematocrit, blood 2024 [facility], [address] [place] [address], [id number] 13:02:25 culture, urine 2024 [place] (Centralized Electronic Ordering - All Locations), Patient Can Go To The Location Of Their Choice, [id number] 18:05:43 urinalysis, dipstick 2024 [facility], [address] [place] [address], [id number] 17:03:48 Referral None recorded. Procedures catheteriza tion straight - procedure (PROC) 2024 025 Not available 15:27:40 catheteriza tion, aguero (PROC) 2024 025 Not available 16:20:11 Surgeries None recorded. Imaging None recorded. Medication Orders ondansetron HCl (PF) 4 mg/2 mL injection solution 2024 rsullivan 89 [facility], [address] [place] [address], [address], 12:25:34 sodium chloride 0.9 % intravenous solution 2024 025 rsullivan 89 [facility], [address] [place], [address], 5 12:25:35 ondansetron 4 mg disintegrat ing tablet 2024 025 [facility], [address] [place], [address], 5 15:04:48 Patient TargetsNo targets recorded. Patient InstructionsNo instructions recorded. Reason for Referral None Reported. Results Created Date Observation Date Name Description Value Unit Range Abnormal Flag Note LastModifiedBy Organization Detail LastModifiedTime 02/02/2002/03/2025 URINE CULTU RE, UROLO GY MARIAH P urine culture, urology workup Final report Not Available [facility] ([facility]) [address] [place], [address], 02/03/2025 18:05:43 02/02/2002/03/2025 URINE CULTU RE, UROLO GY MARIAH P result 1 COMMEN T Mixed uroge nital robyn 10,00 0-25, 000 colon y formi ng units per mL Not Available [facility] ([facility]) [address] [place], [address], 02/03/2025 18:05:43 Result Notes None recorded. Medical Equipment None Reported. Allergies Allergen ID Allergen Name Allergen Category Reaction Reaction Severity Criticality Documentation Date Start Date Code Code System Note Provider Name and Address Organization Details Recorded Time 44728 Dilaudid medicatio n Not available Not available Not available 11/30/2024 48756 3 RxNorm Not Available [facility] 5 08:15:01 25836 oxycodone medicatio n Not available Not available Not available 11/30/2024 7804 RxNorm Not Available [facility] - production 5 08:15:01 26808 acetamino phen / oxycodone medicatio n Not available Not available Not available 11/30/2024 97126 3 RxNorm Not Available [facility] production 5 08:15:01 Medications Name Sig Start Date Stop Date Status Note LastModified by Organization Details LastModified Time doxycycline hyclate 100 mg capsule TAKE 1 CAPSULE BY MOUTH TWO TIMES A DAY active Not Available Not Available Not Available cefpodoxime 100 mg tablet Take 1 tablet every 12 hours by oral route for 7 days. active Not Available Not Available Not Available amoxicillin 600 mg-potassium clavulanate 42.9 mg/5 mL oral suspension GIVE 13.5 ML VIA G-TUBE EVERY 12 HOURS FOR 7 DAYS DISCARD ANY REMAINDER active Not Available Not Available No t Available levofloxacin 500 mg tablet TAKE 1 TABLET BY MOUTH EVERY OTHER DAY UNTIL FINISHED active Not Available Not Available No t Available ondansetron 4 mg disintegrati ng tablet Place 1 tablet every 4-6 hours by translingua l route as needed. active Not Available Not Available No t [...] Vitals Date Recorded Respiratory rate Heart rate Body height Oxygen saturation Oxygen saturation in Arterial blood by Pulse oximetry Body weight Body temperature Systolic And Diastolic Provider Name and Address Organization Details Last Updated DateTime 5 8 /min 80 /min 170.18 cm 96 % 96 % 13024.8 g 96.5 [degF] 140/72 mm[Hg] Not Available [facility] 5 15:50:33 Date Recorded Oxygen saturation Oxygen saturation in Arterial blood by Pulse oximetry Heart rate Respiratory rate Body temperature Systolic And Diastolic Provider Name and Address Organization Details Last Updated DateTime 5 98 % 98 % 90 /min 18 /min 99.6 [degF] 137/69 mm[Hg] Not Available [facility] 5 15:30:43 Date Recorded Respiratory rate Oxygen saturation Oxygen saturation in Arterial blood by Pulse oximetry Body temperature Heart rate Systolic And Diastolic Provider Name and Address Organization Details Last Updated DateTime 5 18 /min 98 % 98 % 98.8 [degF] 84 /min 116/72 mm[Hg] Not Available [facility] 15:26:18 Date Recorded Heart rate Oxygen saturation Oxygen saturation in Arterial blood by Pulse oximetry Body weight Respiratory rate Body height Body temperature Systolic And Diastolic Provider Name and Address Organization Details Last Updated DateTime 5 98 /min 97 % 97 % 51779.9 2 g 19 /min 167.64 cm 100 [degF] 138/68 mm[Hg] Not Available [facility] 12:14:58 Date Recorded Respiratory rate Body height Oxygen saturation Oxygen saturation in Arterial blood by Pulse oximetry Heart rate Body weight Body temperature Systolic And Diastolic Provider Name and Address Organization Details Last Updated DateTime 5 18 /min 170.18 cm 96 % 96 % 82 /min 53448.9 2 g 97.9 [degF] 139/67 mm[Hg] Not Available [facility] 11:16:46 Social History None recorded. Functional Status None recorded. Mental Status None recorded. Family History Nothing Reported. Medical History No medical history recorded. Past Encounters Encounter ID Performer Location Encounter Start Date Encounter Closed Date Diagnosis/Indication Diagnosis SNOMED-CT Code Diagnosis ICD10 Code Diagnosis IMO Codes Diagnosis Note [id number] Debi Reddy MD [address] [address] 11/30/2024 09:06:06 11/30/2024 20:31:14 Nausea and vomiting 87972860 R11.2 [id number] Disorder o f urinary system 868709823 R39.89 [id number] MASSIMO LAMAS MD [address] [address] 12/07/2024 15:01:14 12/07/2024 19:55:13 Acute retention of urine 668727584 R33.8 [id number] Debi Reddy MD [address] [address] 01/01/2025 15:50:29 01/01/2025 18:07:15 Urinary system finding 897836689 R39.9 [id number] CHANEL OSUNA MD [address] [address] 01/08/2025 15:24:39 01/08/2025 23:35:51 Urinary system finding 056089476 R39.9 [id number] Evaluation in the field was performed by my geriatric social worker colleague, as noted above, I provided real-time direction and supervisio n for this visit. The evaluation revealed 67-year-ol d male, bedbound following CVA, status post renal transplant , with chronic Aguero catheter, presents with ongoing symptoms concerning for UTI. Family reports concerns for possible UTI since October. The patient has been treated with multiple antibiotic s with no resolution . Most recently, he has been on Levofloxac in for the past week without improvemen t. His nephrologi st prescribed an additional 7-day course of Levofloxac in to be initiated today. [facility] obtained a urine culture sample earlier today from the Aguero. Family notes worsening confusion (above baseline), increased generalize d weakness, and a noticeable decline in responsive ness over the past week. The patient is answering questions with single words, sometimes inappropri ately, per both family and geriatric social worker. Family reports this is a significan t change from his usual level of interactio n. The Aguero has cloudy urine with white-colo red discharge at the insertion site. Family reports history of chronic, increasing ly difficult- to-treat UTIs. He was given Tylenol approximat ender 1 hour prior to evaluation due to a temperatur e >100 F, which is unusual for him post-CVA. Vital Signs: BP 137/69, HR 90, RR 18, SpO 98% on room airTemp 99.6 F (after Tylenol)Ex am:Patient is awake, tired-appe aring, and confused; responds with one-word answers. Abdomen is soft, non-disten ded, and non-tender . Lungs clear to auscultati on.Allergi es: Reviewed Impression :Altered mental status, generalize d weakness, and low-grade fever while on Levofloxac in x1 week for presumed UTI. Concerning for possible sepsis in immunosupp ressed renal transplant recipient with chronic indwelling Aguero catheter. Plan:Given concerns for sepsis, family agrees to transfer to Emergency Department for further evaluation and management . An expect was called at [facility] ED Primary care, consider__ _ Dispositio n: We discussed the situation and I recommende d referral to the emergency department . [id number] MASSIMO LAMAS MD [facility] ED Medical [address] [address] 01/13/2025 15:26:14 01/13/2025 18:35:45 Urinary system finding 343531518 R39.9 [id number] Aamir Martinez MD [address] [address] 02/01/2025 12:14:51 02/01/2025 13:41:11 Nausea and vomiting 07229967 R11.2 [id number] ROCCO POWERS MD [address] [address] 02/09/2025 11:16:36 02/09/2025 20:29:17 Right upper quadrant pain 960699809 R10.11 [id number] Health Concerns Section Related Observation LastModified by Organization Detai ls LastModified Time None Recorded Concern Status LastModified by Organization Details LastModified Time None Recorded Advance Directives Directive None Recorded Payers Insurance Date Sequence Insurance Name Policy Number Policy Hood Covered Member ID Hood Member ID Guarantor Name 02/09/2025 1 [facility] - DOS ON OR AFTER 2022 - DUAL ELIGIBLE - RETIREMENT OPTIONS AND ONE CARE (MEDICARE REPLACEMENT/ADV ANTAGE - HMO) Harvey Law [id number] Harvey Law Notes Date Note Type Note Provider Name and Address Organization Details Recorded Time text/html CRC Nurse Triage Notes (Phylicia Pires): [...] 2, Hyperlipidemia, Stroke PMH Reviewed at 01/01/2025 - 13:45 Allergies Reviewed at 01/01/2025 - 13:45 Comments: 69 y.o male complains of Urinary Symptoms Per sister, Finished Cefpodoxime for UTI on Saturday. Symptoms worsening since Saturday. Sister states he is cognitively and physically deteriorating. Patient is weak, decreased appetite and nausea. No fever. Urine was dark and cloudy yesterday. 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 Patient has a catheter for urinary. Has an appt at the end of the month to trial removing catheter. I provided information on the mobile health provider response time and advised the patient and/or caregiver to monitor reported signs and symptoms. I discussed the warning signs of when to seek emergency care. Roll Hauler Organization Information for [place] [employer] Name: [facility] Address: [address] [place] [address], [place] [address], Delicatessen Manager: Farshad Puckett MD [facility] No.: [id number] Roll Hauler POC Test Results from [place] [employer] Urine Dipstick (16:03:01) Urine leukocytes: plus 2 SJ Urine nitrites: neg NIT Urine urobilinogen: neg URO Urine protein: neg PRO Urine pH: 7.5 pH Urine blood: trace BLO Urine specific gravity: 1.020 SG Urine ketones: neg KET Urine bilirubin: neg NAGA Urine glucose: neg GLU ........................ ........................ ........................ ........................ ........................ ..................... Roll Hauler Note From [employer] [place]: 69 year-old male complaining of continued malaise [...] for the visit. Patient in no distress. [facility] Lab Orders: urinalysis, dipstick: Performed ........................ ........................ ........................ ........................ ........................ ..................... [facility] Consulted: Deib Reddy ........................ ........................ ........................ ........................ ........................ ..................... Disposition: Fulfilled Debi Reddy MD [address] [place] [address],[address], [place], [address], deltamethod 01/01/2025 17:03:04 5 text/html ROS as noted in the [facility] CRC Nurse Triage Notes (Erasmo Gonzalez): Reason For Request: chronic uti, pt is suspected to have another one, requesting catheter change Denies: Unable to void greater than 5 hours Erection that will not go away after 2 hours Fall or trauma that results in urinary incontinence in the setting of pain Fall or injury that results in incontinence in the absence of pain Lower back pain either unilateral or bilateral, unable to void, painful urination -hematuria Chief Complaints: Urinary Symptoms, Urinary Catheter/Nephrostomy Tube Problems PMH: Organ Transplant, Hypertension, Diabetes Mellitus Type 2, Hyperlipidemia, Stroke PMH Reviewed at 01/08/2025:51 Allergies Reviewed at 01/08/2025 - 12:51 Pain Assessment: Level null out of 10 Comments: 69 y.o male complains of Urinary Symptoms, Urinary Catheter/Nephrostomy Tube Problems Patient's sister calling reporting patient has hx of chronic UTI. Patient's cardroom worker ordered a week of Levofloxacin and patient's symptoms have been waxing and waning. Sister reports patient is intermittently confused. Patient's sister called cardroom worker office to review symptoms and they ordered [...] to seek emergency care -Kate Gonzalez RN ........................ ........................ ........................ ........................ ........................ ..................... Roll Hauler Note From Harley Sifuentes: Pt seen for reported UTI symptoms. Met family on scene who are the Pt's primary care givers. Family reports question of UTI since October, Pt has [...] has chronic UTI's that are becoming increasingly difficult to treat. VS as noted. Pt's abd soft non distended, Pt does not appear to be in any pain with palpation. LS clear. Due to concern of sepsis [facility] contacted and advised of Pt presentation, history and exam findings. [facility] request Pt be sent to ED for sepsis rule out and appropriate treatment. Family advised of [facility] recommendation, agreeable to it. Pt to be transported to [facility], [facility] made aware. EMS called via 911. Pt care and report turned over to [facility], call closed. ........................ ........................ ........................ ........................ ........................ ..................... [facility] Consulted: Chanel Osuna ........................ ........................ ........................ ........................ ........................ ..................... Disposition: Fulfilled CHANEL OSUNA MD [address] [facility],[address], [place], [address], [employer] 01/08/2025 19:59:06 5 text/html ROS as noted in the [facility] CRC Nurse Triage Notes (Ksenia Crain): Denies: Unable to void greater than 5 hours Erection that will not go away after 2 hours Fall or trauma that results in urinary incontinence in the setting of pain Fall or injury that results in incontinence in the absence of pain Lower back pain either unilateral or bilateral, unable to void, painful urination -hematuria Chief Complaints: Urinary Catheter/Nephrostomy Tube Problems, Urinary Symptoms PMH: Organ Transplant, Hypertension, Diabetes Mellitus Type 2, Hyperlipidemia, Stroke PMH Reviewed at 01/13/2025: Allergies Reviewed at 01/13/2025:09 Comments: 69 y.o male complains of Urinary Catheter/Nephrostomy Tube Problems, Urinary Symptoms Patients sister calling in to place a referral. Patient who had a TURP done in November, and has had indwelling aguero catheters. Due to recurrent UTIs they opted to have aguero removed, aguero was removed yesterday at the urologist office, and family has been straigth catheterizing every 6 hours- Per sister the last 3 attempts were difficult to pass but they were able to successfully drain. Last succuess straigth cath was approx 7:30a this morning. Sister reports attempting to straigth cath for the last 30 min and not being able to pass more than half way. There is no bleeding or swelling, patient denies any abdominal pain, pressure or distention. They would like to avoid ED if possible. I provided information on the mobile health provider response time and advised the patient and/or caregiver to monitor reported signs and symptoms. I discussed the warning signs of when to seek emergency care. ........................ ........................ ........................ ........................ ........................ ..................... Roll Hauler Note From Darrion Malik: Encountered patient supine and conscious with family present. Family reports patient receives straight catheterization every six hours to empty his bladder however, the most recent attempt was unsuccessful. Family reports patient is undergoing this regimen under the recommendation of his urologist after suffering chronic urinary tract infections due to an indwelling Aguero catheter. Family reports they are seeking assistance with a straight catheterization, and if the straight catheterization is unsuccessful per patient s neurologist, a Aguero catheter should be set in place until patients follow up appointment which is on 01/14/25. Patient denies somatic complaints when prompted. Patient is bed bound secondary to a stroke. Skin warm, dry and of appropriate color for ethnicity. Head and neck, free of trauma and edema. -JVD. Breath sounds present, clear and equal bilaterally. Abdomen is soft, non-tender and non-distended. Extremities free of trauma and edema. [facility] contacted: initial attempt with company provided 12F unsuccessful; after speaking with family, they advised this radio script writer that patients urologist recommends replacing a aguero catheter in favor of multiple straight catheterizations per day, if family was unsuccessful or found difficulty with the straight catheterization. 16F aguero catheter placed, clear yellow urine noted in reservoir; picture of reservoir uploaded via [facility]. Sterile technique and gloves were utilized during [...] be seeing his urologist in person tomorrow. ........................ ........................ ........................ ........................ ........................ ..................... [facility] Consulted: Massimo Lamas ........................ ........................ ........................ ........................ ........................ ..................... Disposition: Fulfilled MASSIMO LAMAS MD [address] [place] [address],[address], [place], [phone] [email or web address] [employer] 01/13/2025 18:20:01 5 text/html ROS as noted in the HPI CRC Nurse Triage Notes (Imani Tran): Reason For Request: Pt's sister Leatha reporting the pt finished course of antibiotic for UTI>vomiting since and spiking fever>afraid of dehydration and worsening symptoms Patient Reports: Inability to fully empty bladder [...] urination with or without fever Chief Complaints: Fever, Nausea / Vomiting PMH: Organ Transplant, Hypertension, Diabetes Mellitus Type 2, Hyperlipidemia, Stroke, Cancer PMH Reviewed at 02/01/2025 - : Allergies Reviewed at 02/01/2025 - 10:20 Comments: 69 y.o male complains of Fever, Nausea / Vomiting Pt was recently in the ER for UTI and was put on a medication was given IV vanco , due to MRSA. He was sent home on and finished that course. On Saturday, he went to the urologist and was found to have a UTI, and was put on Cipro, and he finished yesterday. He is not having any confusion which is his basline to do. He does have nausea and low-grade fever. He has not been eating or drinking; he has a feeding tube and he threw it up everything. He has had increased urination as they have increased his fluid bolus. He has a h/o stroke but ended up with a GTube from radiation on the head and neck in June, he is now transitioning to food. 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 The anti rejection drug has a h/o skin cancer. I provided information on the mobile health provider response time and advised the patient and/or caregiver to monitor reported signs and symptoms. I discussed the warning signs of when to seek emergency care. Roll Hauler Organization Information for Maggie Leggett [employer] Legal Name: [facility] Address: [address] [place] [address], [place] [address], Delicatessen Manager: Farshad Puckett MD CLIA No.: [id number] [employer] POC Test Results from Maggie Leggett [employer] [facility] (12:07:14) pH: 7.540pH units pCO2: 26.2mmHg pO2: 65.0mmHg Na: 133mmol/L K: 4.8mmol/L iCa: 1.08mmol/L Cl: 100mmol/L TCO2: 21.0mEq/L Hct: 30% Hb: 10.3g/dL Glu: 194mg/dL Lac: 1.12mmol/L Cr: 1.33mg/dL BUN: 19mg/dL Ammol/L HCO3: 22.4mmol/L Attachments uploaded as part of this test result can be found under Documents section. ........................ ........................ ........................ ........................ ........................ ..................... Roll Hauler Note From Maggie Leggett: Pt chief complaint t today of nausea, fever and vomiting which have been occurring for approx 2 days prior to kin arrival at scene. Pt is bed bound due to a stroke that he suffered many years prior. Pt does have a Aguero catheter placed which he states he has been -trying to have removed since September of this year . Pt also notes that he just finished a 5 days antibiotic regiment yesterday and since that has been having an increased temp, has thrown up one time and is having severe nausea. ( pt has used Tylenol with no benefit due to vomiting). Pt and family today would appreciate a general assessment as well as possible treatment. Pt today denies any cp, sob, diarrhea, dizziness or changes in vision. Pt allergies are noted. Nonneural focal exam, afebrile, vitals are noted to be wnl for the baseline of the pt. Lungs present as clear bilaterally on auscultation. Benign abdominal assessment. Lower extremities present at baseline. Aguero catheter presents in tact with approx 400 ml of wood colored urine. POC blood work notes all labs to be within normal limits of the pt.multiple iv attempts made on pt without success. Pt is caox4 with a GCS of 15. Urine culture acquired for send out to [facility]. [facility] Aamir Martinez consulted. Pt informed of findings. [...] immediately call emergency services if any present. [facility] Lab Orders: BMP, serum or plasma: Performed hemoglobin + hematocrit, blood: Performed culture, urine: Performed [facility] Medication Orders: ondansetron HCl (PF) 4 mg/2 mL injection solution: Performed sodium chloride 0.9 % intravenous solution: Performed ........................ ........................ ........................ ........................ ........................ ..................... [facility] Consulted: Aamir Martinez ........................ ........................ ........................ ........................ ........................ ..................... Disposition: Fulfilled Aamir Martinez MD [address] [place] [address],[address], [place], [phone], deltamethod 02/01/2025 13:36:43 5 text/html ROS as noted in the [facility] CRC Nurse Triage Notes (Roxana Montoya): Reason For Request: Patient woke up w/ a sharp pain at the bottom of his rib pain right side. Patient Reports: Vague abdominal pain greater than 24 hoursDenies: Sharp focal or diffuse abdominal pain Vomiting blood/coffee ground material Bloating, jaundice new onset with pain Nausea and vomiting greater than 2 hours with abdominal pain Tearing pain that radiates to back Food Impaction Constipation Diarrhea no blood in stool Nausea with or without vomiting Inability to tolerate foods, fluids or daily medications Chief Complaints: Chest PainPMH: Organ Transplant, Hypertension, Diabetes Mellitus Type 2, Hyperlipidemia, Stroke, CancerPMH Reviewed at 02/09/2025 - 09:50Allergies Reviewed at 02/09/2025 - 09:50Pain Assessment: Level 8 out of 10Comments: 69 y.o male complains of Chest Pain R chest pain below rib cageSore to touch, when moves it is painful - rates 8/10At rest on back much less painMost pain when laying on L side(-) rebound tendernessNo swelling/bruising/rednes sDenies fever, shortness of breath, palpitationsKidney transplant - continues on antirejection medsBedbound, denies recent fall/injuryNot on anticoagulationUses chemo cream on face for melanoma, no active treatment for prostate cancerHas not taken any OTC medicines to help painVoiding adequately, adequate POsRequesting instED visit I provided information on the mobile health provider response time and advised the patient and/or caregiver to monitor reported signs and symptoms. I discussed the warning signs of when to seek emergency care. Roll Hauler Organization Information for Anthony Alan Jerry Bradley Legal Name: [employer] A ddress: [address] [place] [address], USMedical Director: Jerad Barney [facility] No.: [id number] Roll [employer]uler POC Test Results from Dayanna Elenasonido VALDOVINOS Urine Dipstick (10:57:18)Urine leukocytes: 125++LEUUrine nitrites: -NITUrine urobilinogen: 0.2UROUrine protein: 30PROUrine pH: 6.5pHUrine blood: 50BLOUrine specific gravity: 1.015SGUrine ketones: 5KETUrine bilirubin: -BILUrine glucose: -GLU iSTAT Chem8+ (11:11:56)Na: 136mEq/LK: 4.8mEq/LCl: 99mEq/LiCa: 1.28mmol/LTCO2: 25mmol/LGlu: 191mg/dLBUN: 28mg/dLCrea: 1.2mg/dLHct: 32%Hb: 10.9g/dLAmmol/LCartridge Number: [id number] ........................ ........................ ........................ ........................ ........................ ..................... Roll Hauler Note From Anthony Alan: SC6 responds to the listed address for a 69 yom w/ a c/c of RUQ pain since this morning. Upon arrival, sister opens the door for [facility] and pt is found conscious and alert and laying semi-fowlers in the hospital bed in his living room. He is pleasant and generally well-appearing. He makes eye contact and says hello. Pt is not in acute distress, no ashen or yanes color are noted, no stridor or sonorous respirations are present, no facial droop or one-sided weakness are observed, and he is not bleeding anywhere. Pt is endorsing RUQ abdominal pain since waking up this morning. He describes the pain as sharp and it starts around the back under the ribs and comes forward through the flank to the anterior side. He has never had [...] and fluids PO, however, his thirst and appetite drop off later in the day and he has a G-tube in place to provide liquid nutrition and hydration when he doesn't feel like eating. No fevers/chills are reported and pt denies n/v/d. No cardiac-originating cp, GARNICA, AMS, weakness, syncope, or seizure-like activity are reported. Pt has a kidney graft in the RLQ w/ a Aguero catheter in place and has suffered multiple UTIs since September of this year and has been on so many abx. Sister says none of his usual UTI s/s have been present and his Aguero was replaced in the ED [id number] ago. She says he has had really good urinary output and no black or bloody stools or urine are reported. Recent testing for MRSA infection. [facility] obtains vital signs and pt is assessed. [...] bandage is applied w/ 2x2 and tape. [facility] contacts [facility] and discusses the above. [facility] recommends transport to the ED for abdominal imaging to r/o cholecystitis. Pt and sister are amendable. Pt is transported to [facility]. MIH is clear. Report completed by EDIL Alan [id number]. [facility] Lab Orders: urinalysis, dipstick: Performed BMP, serum or plasma: Performed ........................ ........................ ........................ ........................ ........................ ..................... [facility] Consulted: Rocco Powers...................... ........................ ........................ ........................ ........................ ..................... Disposition: Fulfilled ROCCO POWERS MD [address] [facility],[address], [place], [address], VICKY - TERRI LEWIS 02/09/2025 12:22:12
--- OUTSIDE RECORDS SUMMARY | 2025-04-16 11:25 | XMS_ITS | Encounter Summary ---
Author Organization [facility] Address [address] [place] [id number] Care Team Providers Care Salesforce Consultant Name Role Phone Michelle Rucker MD Primary Care Provider + Encounter Details Date Type Department Care Team (Late st Contact Info) Description 10/02/2024 Lab Requisition [facility] - Main Lab [address] [facility] [place] [address] Michelle Rucker MD [address] [address] Acute kidney failure, unspecified (CMS/HCC [...] 1:45 PM EDT Acute kidney failure, unspecified ([facility] V24) Other acute kidney failure ([facility] V24) URINALYSIS WITH REFLEX MICROSCOPIC AND CULTURE Routine 10/01/2024 1:45 PM EDT Acute kidney failure, unspecified ([facility] V24) Other acute kidney failure ([facility] V24) documented in this encounter Results * Scott urine culture tube (10/01/2024 1:45 PM EDT) Pathologist [facility] Extra Tube Hold for add-ons. 10/02/2024 11:01 AM EDT [facility] Comment:Auto resulted. Urine Urine specimen obtained by clean catch procedure / Unknown Non-blood Collection / Unknown 10/01/2024 1:45 PM EDT 10/02/2024 9:03 AM EDT us Michelle Rucker MD LAB URINE ORDERABLES Fin al Result [facility] [address] [place] [address], * (ABNORMAL) Urinalysis with reflex microscopic and culture (10/01/2024 1:45 PM EDT) Pathologist [facility] Specific [place] Urine 1.002(L) 1.003 - 1.030 LAB URINALYSIS - AUTOMATED METHOD 10/02/2024 9:15 AM EDT [facility] pH, Urine 6.5 5.0 - 8.0 pH LAB URINALYSIS - AUTOMATED METHOD 10/02/2024 9:15 AM EDT [facility] Leukocytes, Urine Negative Negative LAB URINALYSIS - AUTOMATED METHOD 10/02/2024 9:15 AM EDT [facility] Nitrite, Urine Negative Negative LAB URINALYSIS - AUTOMATED METHOD 10/02/2024 9:15 AM EDT [facility] Protein, Urine Negative <=Trace mg/dL LAB URINALYSIS - AUTOMATED METHOD 10/02/2024 9:15 AM [facility] Glucose, Urine Negative Negative mg/dL LAB URINALYSIS - AUTOMATED METHOD 10/02/2024 9:15 AM [facility] Ketones, Urine Negative Negative mg/dL LAB URINALYSIS - AUTOMATED METHOD 10/02/2024 9:15 AM [facility] Urobilinogen, Urine 0.2 0.2 - 1.0 mg/dL LAB URINALYSIS - AUTOMATED METHOD 10/02/2024 9:15 AM [facility] Bilirubin, Urine Negative Negative LAB URINALYSIS - AUTOMATED METHOD 10/02/2024 9:15 AM [facility] Blood, Urine Negative Negative LAB URINALYSIS - AUTOMATED METHOD 10/02/2024 9:15 AM [facility] Urine Urine specimen obtained by clean catch procedure / Unknown Non-blood Collection / Unknown 10/01/2024 1:45 PM EDT 10/02/2024 8:46 AM EDT us Michelle Rucker MD LAB URINE ORDERABLES Fin al Result [facility] [address] [place] [address], * (ABNORMAL) Microalbumin creatinine urine ratio (10/01/2024 1:45 PM EDT) Creatinine, Urine 27.0 mg/dL LAB CHEMISTRY METHOD 10/02/2024 10:08 AM [facility] Microalb, Ur 30.7(H) 0.0 - 29.0 mg/L LAB CHEMISTRY METHOD 10/02/2024 10:08 AM [facility] Microalb/Crea t Ratio 114(H) <30 mg/g creat LAB CHEMISTRY METHOD 10/02/2024 10:08 AM EDT [facility] Urine Urine specimen obtained by clean catch procedure / Unknown Non-blood Collection / Unknown 10/01/2024 1:45 PM EDT 10/02/2024 8:46 AM EDT us Michelle Rucker MD LAB URINE ORDERABLES Fin al Result [facility] [address] [place] [address], * (ABNORMAL) BK virus molecular study urine, quantitative (10/01/2024 1:45 PM EDT) BK Virus DNA Qual Urine DETECTED( A) Not detected 10/05/2024 12:56 PM EDT [facility] BK Virus DNA Quant PCR Urine 851(H) <125 Copies/mL 10/05/2024 12:56 PM EDT [facility] Log BK Virus DNA, Urine 2.93(H) <2.10 Log (10) Copies/mL 10/05/2024 12:56 PM EDT [facility] Comment: This test utilizes [...] characteristics of this procedure were determined by [facility]. This test is performed pursuant to a license agreement with [employer] Test performed at [facility], [address], [place] [address] Brittanie Horan MD, PhD - Community Service Technician Urine Urinary bladder structure / Unknown Non-blood Collection / Unknown 10/01/2024 1:45 PM EDT 10/02/2024 8:46 AM EDT us Michelle Rucker MD LAB URINE ORDERABLES Fin al Result [facility] [address] [place] [address] documented in this encounter Visit Diagnoses Diagnosis Acute kidney failure, unspecified (CMS/HCC V24) Acute kidney failure, unspecified Other acute kidney failure (CMS/HCC V24) documented in this encounter Additional Health Concerns Infection Onset Date Last Indicated Resolved Time MDRO (other) 12/15/2024 12/15/2024 documented as of this encounter Care Teams Salesforce Consultant Relationship Specialty Start Date End Date Michelle Rucker MD [address] [place] [address] PCP - General Family Medicine 05/06/24 documented as of this encounter
--- OUTSIDE RECORDS SUMMARY | 2025-04-16 11:25 | XMS_ITS | Encounter Summary ---
Author Organization [facility] Address [address] [place] [address] Care Team Providers Care Saw Boss Name Role Phone Michelle Rucker MD Primary Care Provider + Encounter Details Date Type Department Care Team (Late st Contact Info) Description 10/06/[address] [facility] - Main Lab [address] [facility] [place] [address] Michelle Rucker MD [address] [address] Other transplanted organ and tissue [...] developed and the performance characteristics determined by [facility]. This confirmation testing has not been cleared or approved by the FDA. The laboratory is regulated under CLIA as qualified to perform high-complexity testing. This test is used for patient testing purposes. It should not be regarded as investigational or for research. Test performed at [facility], [address], [place] [address] Brittanie Horan MD, PhD - Digital Forensic Examiner Blood Venous blood specimen / Unknown Venipuncture / Unknown 10/06/2024 7:06 AM EDT 10/06/2024 10:10 AM EDT Michelle Rucker MD LAB BLOOD ORDERABLES Fin al Result [facility] [address] [place] [address] documented in this encounter Visit Diagnoses Diagnosis Other transplanted organ and tissue status documented in this encounter Additional Health Concerns Infection Onset Date Last Indicated Resolved Time MDRO (other) 12/15/2024 12/15/2024 documented as of this encounter Care Teams Saw Boss Relationship Specialty Start Date End Date Michelle Rucker MD [address] [address] PCP - General Family Medicine 05/06/24 documented as of this encounter
--- OUTSIDE RECORDS SUMMARY | 2025-04-16 11:25 | XMS_ITS | Encounter Summary ---
Author Organization [facility] Address [address] [facility] [address] [place] [address] Phone Care Team Providers Care Fence Gate Assembler Name Role Phone Tennille Linton CUTTER DOWN Primary Care Provider + Anni Quiñonez PA Unavailable [phone] Encounter Details Date Type Department Care Team (Late st Contact Info) Description 03/24/2024 Procedure Pass [facility] [address] [place] [address] Social History Tobacco Use Types Packs/Day Years [...] Upcoming Encounters Date Type Department Care Team ([facility] st Contact Info) Description 04/22/2025 7:50 AM EDT Telemedicine [facility] Urology [address] [place], [place] [address] [place] [address] Bartolome Sandy MD, MS [address] [facility], [facility] [address] [place] [address] [email or web address] 05/18/2025 1:00 PM EST Office Visit [place] [id number] [facility] [address] [place] [address] Daisy Diaz MD, MPH [address] [facility] [address] [place] [address] [email or web address] documented as of this encounter Visit Diagnoses Not on filedocumented in this encounter Care Teams Fence Gate Assembler Relationship Specialty Start Date End Date Tennille Linton NP [address] [place] [address] PCP - General Nurse Practitioner 08/30/23 Anni Quiñonez PA [address] [place] [phone] [email or web address] Physician Production Officer 08/30/23 shana myers Heart Vascular Program [facility] Weed Inspector Cardiology 03/12/24 documented as of this encounter Additional Source Comments The information contained in this document represents components of the legal health record. It is not the complete legal health record.[facility]
--- OUTSIDE RECORDS SUMMARY | 2025-04-16 11:25 | XMS_ITS | Encounter Summary ---
Author Organization [facility] Address [address] [place] [address] [place] [address] Phone Care Team Providers Care Shipping Support Clerk Name Role Phone Tennille Linton NP Primary Care Provider + Anni Quiñonez PA Unavailable [phone] Encounter Details Date Type Department Care Team (Late st Contact Info) Description 02/25/2024 Procedure Pass [facility] Radiology [address] [place] [address] Social History Tobacco Use Types Packs/Day Years [...] Info) Description 04/22/2025 7:50 AM EDT Telemedicine [facility] Urology [address] [facility] [address] [place] [address] Bartolome Sandy MD, MS [address] [facility] [address] [place] [address] [email or web address] 05/18/2025 1:00 PM EST Office Visit [facility] Center [address] [facility] [address] [place] [address] Daisy Diaz MD, MPH [address] [facility] [address] [place] [address] [email or web address] documented as of this encounter Visit Diagnoses Not on filedocumented in this encounter Care Teams Shipping Support Clerk Relationship Specialty Start Date End Date Tennille Linton NP [address] [place] [address] PCP - General Nurse Practitioner 08/30/23 Anni Quiñonez PA [address] [place] [address] [email or web address] [email or web address] Director Medical 08/30/23 shana myers Heart Vascular Program [facility] Assembler Wire Mesh Gate Cardiology 03/12/24 documented as of this encounter Additional Source Comments The information contained in this document represents components of the legal health record. It is not the complete legal health record.[facility]
--- OUTSIDE RECORDS SUMMARY | 2025-04-16 11:25 | XMS_ITS | Encounter Summary ---
Author Organization [facility] Address [address] [place] [address] Care Team Providers Care Medicine Aide Name Role Phone Michelle Rucker MD Primary Care Provider + Encounter Details Date Type Department Care Team (Late st Contact Info) Description 10/02/2024 Lab Requisition [facility] - Main Lab 299 [facility] [place] [address] Michelle Rucker MD [address] [phone] Immunodeficiency, unspecified (CMS/[facility] V24) Social History Tobacco Use [...] Routine 10/02/2024 6:50 AM EDT Immunodeficiency, unspecified ([facility] V24) CREATINE KINASE Routine 10/02/2024 6:50 AM EDT Immunodeficiency, unspecified ([facility] V24) RENAL FUNCTION PANEL Routine 10/02/2024 6:50 AM EDT Immunodeficiency, unspecified ([facility] V24) COMPREHENSIVE METABOLIC PANEL Routine 10/02/2024 6:50 AM EDT Immunodeficiency, unspecified ([facility] V24) documented in this encounter Results * (ABNORMAL) CBC auto differential (10/02/2024 6:50 AM EDT) [facility] Signature WBC 6.1 4.8 - 10.8 [...] LAB HEMETOLOGY METHOD 10/02/2024 9:04 AM EDT [facility] Eosinophils Absolute 0.20 0.00 - 0.50 K/[facility] LAB HEMETOLOGY METHOD 10/02/2024 9:04 AM EDT [facility] LAB Basophils Absolute 0.04 0.00 - 0.20 K/[facility] LAB HEMETOLOGY METHOD 10/02/2024 9:04 AM EDT [facility] Immature Granulocytes Absolute 0.02 0.00 - 0.03 K/[facility] LAB HEMETOLOGY METHOD 10/02/2024 9:04 AM EDT [facility] Blood Venous blood specimen / Unknown Venipuncture / Unknown 10/02/2024 6:50 AM EDT 10/02/2024 8:49 AM EDT Michelle Rucker MD LAB BLOOD ORDERABLES Fin al Result Performing Organization Address City/[facility]/ZIP Co de Phone Number [facility] LAB [address] [place] [address], [place] [phone] * Parathyroid hormone intact (10/02/2024 6:50 AM EDT) [facility] PTH 45.7 18.5 - 88.0 pcg/mL LAB CHEMISTRY METHOD 10/02/2024 10:52 AM EDT [facility] Blood Venous blood specimen / Unknown Venipuncture / Unknown 10/02/2024 6:50 AM EDT 10/02/2024 8:49 AM EDT Michelle Rucker MD LAB BLOOD ORDERABLES Fin al Result [facility] [address] [place] [address], [place] [phone] * BK virus molecular study quantitative (10/02/2024 6:50 AM EDT) [facility] BK Virus DNA Qual Plasma Not detected Not detected 10/05/2024 12:56 PM EDT [facility] BK Virus DNA Quant Plasma <125 <125 Copies/mL 10/05/2024 12:56 PM EDT [facility] Log BK Virus DNA, Plasma <2.10 <2.10 Log (10) Copies/mL 10/05/2024 12:56 PM EDT [facility] Comment: This test utilizes a [...] characteristics of this procedure were determined by [facility]. This test is performed pursuant to a license agreement with [employer] Test performed at [facility], [address] , [place], [place] [id number] Brittanie Horan MD, PhD - Ammonia Worker Blood Venous blood specimen / Unknown Venipuncture / Unknown 10/02/2024 6:50 AM EDT 10/02/2024 8:49 AM EDT us Michelle Rucker MD LAB BLOOD ORDERABLES Fin al Result [facility] [address] [place] [address] * (ABNORMAL) Hemoglobin A1c (10/02/2024 6:50 AM EDT) [facility] Hemoglobin A1C 7.3(H) <6.5 % LAB CHEMISTRY METHOD 10/02/2024 2:09 PM EDT [facility] Mean Bld Glu Estim. 163 mg/dL LAB CHEMISTRY METHOD 10/02/2024 2:09 PM EDT [facility] Blood Venous blood specimen / Unknown Venipuncture / Unknown 10/02/2024 6:50 AM EDT 10/02/2024 8:49 AM EDT Michelle Rucker MD LAB BLOOD ORDERABLES Fin al Result Performing Organization Address [facility]/ZIP Co de Phone Number [facility] [address] [place] [address], [place] [phone] * Creatine kinase (10/02/2024 6:50 AM EDT) [facility] Total CK 27 22 - 269 unit/L LAB CHEMISTRY METHOD 10/02/2024 9:31 AM EDT [facility] Blood Venous blood specimen / Unknown Venipuncture / Unknown 10/02/2024 6:50 AM EDT 10/02/2024 8:49 AM EDT Michelle Rucker MD LAB BLOOD ORDERABLES Fin al Result Performing Organization Address [facility] de Phone Number [facility] [address] [place] [address], [place] [phone] * (ABNORMAL) Renal function panel (10/02/2024 6:50 AM EDT) [facility] Sodium 139 133 - 145 mmol/L LAB CHEMISTRY METHOD 10/02/2024 9:31 AM EDT [facility] Potassium 4.5 3.5 - 5.5 mmol/L LAB CHEMISTRY METHOD 10/02/2024 9:31 AM EDT [facility] Chloride 105 96 - 110 mmol/L LAB CHEMISTRY METHOD 10/02/2024 9:31 AM EDT [facility] CO2 30 21 - [...] [facility] [address] [place] [address], * (ABNORMAL) Comprehensive metabolic panel (10/02/2024 6:50 AM EDT) [facility] Signature Sodium 139 133 - 145 [...] LAB CHEMISTRY METHOD 10/02/2024 9:31 AM EDT [facility] ALT (SGPT) 10 10 - 60 unit/L LAB CHEMISTRY METHOD 10/02/2024 9:31 AM EDT [facility] Alkaline Phosphatase 70 42 - 121 unit/L LAB CHEMISTRY METHOD 10/02/2024 9:31 AM EDT [facility] Total Protein 6.8 6.0 - 8.0 g/dL LAB CHEMISTRY METHOD 10/02/2024 9:31 AM EDT [facility] Albumin 2.6(L) 3.2 - 5.0 g/dL LAB CHEMISTRY METHOD 10/02/2024 9:31 AM EDT [facility] Total Bilirubin 0.3 0.0 - 1.4 mg/dL LAB CHEMISTRY METHOD 10/02/2024 9:31 AM EDT [facility] Blood Venous blood specimen / Unknown Venipuncture / Unknown 10/02/2024 6:50 AM EDT 10/02/2024 8:49 AM EDT us Michelle Rucker MD LAB BLOOD ORDERABLES Fin al Result [facility] [address] [place] [address], documented in this encounter Visit Diagnoses Diagnosis Immunodeficiency, unspecified (CMS/HCC V24) documented in this encounter Additional Health Concerns Infection Onset Date Last Indicated Resolved Time MDRO (other) 12/15/2024 12/15/2024 documented as of this encounter Care Teams Medicine Aide Relationship Specialty Start Date End Date Michelle Rucker MD [address] [place] [phone] PCP - General Family Medicine 05/06/24 documented as of this encounter
--- OUTSIDE RECORDS SUMMARY | 2025-04-16 11:25 | XMS_ITS | Encounter Summary ---
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 This confirmation testing has not been cleared or approved by the FDA. The laboratory is regulated under CLIA as qualified to perform high-complexity testing. This test is used for patient testing purposes. It should not be regarded as investigational or for research. Test performed at [facility], [address], [place] [address] Brittanie Horan MD, PhD - Tool Repairer Bench Blood Venous blood specimen / Unknown Venipuncture / Unknown 09/08/2024 7:02 AM EDT 09/08/2024 9:18 AM EDT Michelle Rucker MD LAB BLOOD ORDERABLES Fin al Result [facility] [address] [place] [address] documented in this encounter Visit Diagnoses Diagnosis Other nursing home (current) drug therapy Benign prostatic hyperplasia without lower urinary tract symptoms documented in this encounter Additional Health Concerns Infection Onset Date Last Indicated Resolved Time MDRO (other) 12/15/2024 12/15/2024 documented as of this encounter Care Teams Cattle Manager Relationship Specialty Start Date End Date Michelle Rucker MD [address] [place] [address] PCP - General Family Medicine 05/06/24 documented as of this encounter
--- OUTSIDE RECORDS SUMMARY | 2025-04-16 11:25 | XMS_ITS | Encounter Summary ---
Author Organization [facility] Address [address] [place] [address] Care Team Providers Care Business Services Vice President Name Role Phone Michelle Rucker MD Primary Care Provider + Encounter Details Date Type Department Care Team (Late st Contact Info) Description 09/25/2024 Lab Requisition [facility] - Main Lab 299 [facility] [place] [address] Michelle Rucker MD [address] [place] [address] Malignant (primary) neoplasm, unspecified (CMS/HCC V24, CMS/HCC [...] as of this encounter Care Teams Business Services Vice President Relationship Specialty Start Date End Date Michelle Rucker MD [address] [place] [address] PCP - General Family Medicine 05/06/24 documented as of this encounter
--- OUTSIDE RECORDS SUMMARY | 2025-04-16 11:25 | XMS_ITS | Encounter Summary ---
Author Organization [facility] Address [address] [place] [address] Care Team Providers Care Crm Functional Analyst Name Role Phone Michelle Rucker MD Primary Care Provider + Encounter Details Date Type Department Care Team (Late st Contact Info) Description 08/14/2024 Lab Requisition [facility] - Main Lab 299 [place] [address] Michelle Rucker MD [address] [phone] Diarrhea, unspecified Social History Tobacco Use Types [...] MICROBIOLOGY - GENER AL ORDERABLES Final Result [facility] [address] [place] [address], documented in this encounter Visit Diagnoses Diagnosis Diarrhea, unspecified documented in this encounter Additional Health Concerns Infection Onset Date Last Indicated Resolved Time C. difficile Rule-Out 08/14/2024 08/13/20242024 11:06 AM EST MDRO (other) 12/15/2024 12/15/2024 documented as of this encounter Care Teams Crm Functional Analyst Relationship Specialty Start Date End Date Michelle Rucker MD [address] [place] [phone] PCP - General Family Medicine 05/06/24 documented as of this encounter
--- OUTSIDE RECORDS SUMMARY | 2025-04-16 11:25 | XMS_ITS | Encounter Summary ---
Author Organization [facility] Address [address] [place] [address] Care Team Providers Care Plant Technical Specialist Name Role Phone Michelle Rucker MD Primary Care Provider + Encounter Details Date Type Department Care Team (Late st Contact Info) Description 10/13/2024 Lab Requisition [facility] - Main Lab 299 [facility] [place] [address] Michelle Rucker MD [address] [address] Encounter for therapeutic drug level [...] investigational or for research. Test performed at [facility], [address], [place] [address] Brittanie Horan MD, PhD - Commercial Solar Sales Consultant Blood Venous blood specimen / Unknown Venipuncture / Unknown 10/13/2024 6:50 AM EDT 10/13/2024 8:10 AM EDT Michelle Rucker MD LAB BLOOD ORDERABLES Fin al Result [facility] [address] [place] [address] documented in this encounter Visit Diagnoses Diagnosis Encounter for therapeutic drug level monitoring documented in this encounter Additional Health Concerns Infection Onset Date Last Indicated Resolved Time MDRO (other) 12/15/2024 12/15/2024 documented as of this encounter Care Teams Plant Technical Specialist Relationship Specialty Start Date End Date Michelle Rucker MD [address] [address] PCP - General Family Medicine 05/06/24 documented as of this encounter
--- OUTSIDE RECORDS SUMMARY | 2025-04-16 11:25 | XMS_ITS | Encounter Summary ---
Author Organization [facility] Address [address] [facility] [address] [place] [phone] Phone Care Team Providers Care Arts Manager Name Role Phone Tennille Linton MACHINE STACKER Primary Care Provider + Anni Quiñonez PA Unavailable [phone] Encounter Details Date Type Department Care Team (Late st Contact Info) Description 03/18/2024 Procedure Pass [facility] Periop [address] [place] [address] Social History Tobacco Use Types Packs/Day Years [...] 03/19/2024 9:00 AM Vani Mei RN * Ulysses Suicide Severity Rating Scale (Screener/Recent Self-Report) Question Answer Date of Assessment Author 1. Wish to be (Past 1 Month) No 03/19/2024 9:00 AM Vani Mei, CARLOS 2. Non-Specific Active Suicidal Thoughts (Past 1 Month) No 03/19/2024 9:00 AM EDT Perrino, Vani Anastasiya, RN 6. Suicidal Behavior (Lifetime) No 03/19/2024 9:00 AM EDT Vani Maloney RN documented as of this encounter Plan of Treatment Upcoming Encounters Date Type Department Care Team (Late st Contact Info) Description 04/22/2025 7:50 AM EDT Telemedicine [facility] Urology [address] [facility] [address] [place] [address] Bartolome Sandy MD, MS 45 [facility], [facility] [address] [place] [address] [email or web address] 05/18/2025 1:00 PM EST Office Visit [facility] Center [address] [place] [address] [address] [address] Daisy Diaz MD, MPH [address] [place] [address] [address], [place] [address] [email or web address] documented as of this encounter Visit Diagnoses Not on filedocumented in this encounter Care Teams Arts Manager Relationship Specialty Start Date End Date Tennille Linton NP [address] [place] [address] PCP - General Nurse Practitioner 08/30/23 Anni Quiñonez PA [address] [place] [phone] [email or web address] Physician Emergency Veterinary Assistant 08/30/23 shana myers [facility] Caddie Supervisor Cardiology 03/12/24 documented as of this encounter Additional Source Comments The information contained in this document represents components of the legal health record. It is not the complete legal health record.[facility]
--- OUTSIDE RECORDS SUMMARY | 2025-04-16 11:25 | XMS_ITS | Encounter Summary ---
Author Organization [facility] Address [address] [facility] [address] [place] [address] Phone Care Team Providers Care Family Resource Coordinator Name Role Phone Tennille Linton QUANTITATIVE ANALYST MARKETING Primary Care Provider + Anni Quiñonez PA Unavailable [phone] Encounter Details Date Type Department Care Team (Late st Contact Info) Description 03/20/2024 Procedure Pass [facility] Echocardiography [address] [place] [address] Social History Tobacco Use Types Packs/Day Years [...] Info) Description 04/22/2025 7:50 AM EDT Telemedicine [facility] Urology [address] [place], [place] [address] [place] [address] Bartolome Sandy MD, MS 45 [facility], [facility] [address] [place] [address] [email or web address] 05/18/2025 1:00 PM EST Office Visit [address] [place] [address] Daisy Diaz MD, MPH [address] [facility] [address] [place] [address] [email or web address] documented as of this encounter Visit Diagnoses Not on filedocumented in this encounter Care Teams Family Resource Coordinator Relationship Specialty Start Date End Date Tennille Linton NP [address] [place] [address] PCP - General Nurse Practitioner 08/30/23 Anni Quiñonez PA 200 [facility] [address] [place] [address] [email or web address] [email or web address] Aircraft Engine Installer 08/30/23 shana myers [facility] Intern Cardiology 03/12/24 documented as of this encounter Additional Source Comments The information contained in this document represents components of the legal health record. It is not the complete legal health record.[facility]
--- OUTSIDE RECORDS SUMMARY | 2025-04-16 11:25 | XMS_ITS | Encounter Summary ---
Author Organization [facility] Address [address] [place] [address] [place] [address] Phone Care Team Providers Care Aircraft Inspection Record Clerk Name Role Phone Tennille Linton NP Primary Care Provider + Anni Quiñonez PA Unavailable [phone] Encounter Details Date Type Department Care Team (Late st Contact Info) Description 02/25/2024 Procedure Pass [facility] Radiology [address] [place] [address] Social History Tobacco Use Types Packs/Day Years [...] Info) Description 04/22/2025 7:50 AM EDT Telemedicine [facility] Urology [address] [facility] [address] [place] [address] aBrtolome Sandy MD, MS 45 [facility], [address] [place] [address] [email or web address] 05/18/2025 1:00 PM EST Office Visit [facility] Center [address] [facility] [address] [place] [address] Daisy Diaz MD, MPH [address] [facility] [address] [place] [address] [email or web address] documented as of this encounter Visit Diagnoses Not on filedocumented in this encounter Care Teams Aircraft Inspection Record Clerk Relationship Specialty Start Date End Date Tennille Linton NP [address] [place] [address] PCP - General Nurse Practitioner 08/30/23 Anni Quiñonez PA [address] [place] [phone] [email or web address] Physician Merchandise Displayer 08/30/23 shana myers [facility] Resolution Analyst Cardiology 03/12/24 documented as of this encounter Additional Source Comments The information contained in this document represents components of the legal health record. It is not the complete legal health record.[facility]
--- OUTSIDE RECORDS SUMMARY | 2025-04-16 11:26 | XMS_ITS | Encounter Summary ---
Author Organization [facility] Address [address] [place] [address] Care Team Providers Care Skein Yard Drier Name Role Phone Michelle Rucker MD Primary Care Provider + Encounter Details Date Type Department Care Team (Late st Contact Info) Description 10/30/2024 Lab Requisition [facility] - Main Lab 299 [facility] [place] [address] Michelle Rucker MD [address] [phone] Chronic kidney disease, stage 4 (severe) (CMS/HCC [...] mmol/L LAB CHEMISTRY METHOD 10/30/2024 9:54 AM [facility] Potassium 4.6 3.5 - 5.5 mmol/L LAB CHEMISTRY METHOD 10/30/2024 9:54 AM [facility] Chloride 110 96 - 110 mmol/L LAB CHEMISTRY METHOD 10/30/2024 9:54 AM [facility] CO2 26 21 - 32 mmol/L LAB CHEMISTRY METHOD 10/30/2024 9:54 AM [facility] Anion Gap 5 3 - 11 LAB CHEMISTRY METHOD 10/30/2024 9:54 AM [facility] Glucose 114(H) 70 - 100 mg/dL LAB CHEMISTRY METHOD 10/30/2024 9:54 AM [facility] BUN 30(H) 5 - 25 mg/dL LAB CHEMISTRY METHOD 10/30/2024 9:54 AM [facility] Creatinine 1.95(H) 0.70 - 1.30 mg/dL LAB CHEMISTRY METHOD 10/30/2024 9:54 AM [facility] eGFR 37(L) >=60 mL/min/1. 73m2 LAB CHEMISTRY METHOD 10/30/2024 9:54 AM [facility] Comment:Calculation based on the Chronic Kidney Disease Epidemiology Collaboration (CKD-EPI) equation refit without adjustment for race. BUN/Creatinine Ratio 15.4 LAB CHEMISTRY METHOD 10/30/2024 9:54 AM [facility] Calcium 9.1 8.5 - 10.5 mg/dL LAB CHEMISTRY METHOD 10/30/2024 9:54 AM [facility] Blood Venous blood specimen / Unknown Venipuncture / Unknown 10/30/2024 7:43 AM EDT 10/30/2024 9:16 AM EDT us Michelle Rucker MD LAB BLOOD ORDERABLES Fin al Result [facility] [address] [place] [address], * Tacrolimus level (10/30/2024 7:43 AM EDT) Tacrolimus Level 7.3 5.0 - 20.0 ng/mL 11/02/2024 9:20 AM EDT [facility] Comment: Additional Information: Toxic Level [...] developed and the performance characteristics determined by [facility]. This confirmation testing has not been cleared or approved by the FDA. The laboratory is regulated under CLIA as qualified to perform high-complexity testing. This test is used for patient testing purposes. It should not be regarded as investigational or for research. Test performed at [facility], [address] , [place] [address] Brittanie Horan MD, PhD - Instrument Checker Blood Venous blood specimen / Unknown Venipuncture / Unknown 10/30/2024 7:43 AM EDT 10/30/2024 9:16 AM EDT Michelle Rucker MD LAB BLOOD ORDERABLES Fin al Result [facility] [address] [place] [address] documented in this encounter Visit Diagnoses Diagnosis Chronic kidney disease, stage 4 (severe) (CMS/HCC V24, CMS/HCC V28) documented in this encounter Additional Health Concerns Infection Onset Date Last Indicated Resolved Time MDRO (other) 12/15/2024 12/15/2024 documented as of this encounter Care Teams Skein Yard Drier Relationship Specialty Start Date End Date Michelle Rucker MD [address] [address] PCP - General Family Medicine 05/06/24 documented as of this encounter
--- OUTSIDE RECORDS SUMMARY | 2025-04-16 11:26 | XMS_ITS | Encounter Summary ---
Author Organization [facility] Address [id number] [place] [id number] Care Team Providers Care Aerophysics Engineer Name Role Phone Michelle Rucker MD Primary Care Provider + Encounter Details Date Type Department Care Team (Late st Contact Info) Description 09/03/[address] [facility] - Main Lab [address] [facility] [place] [address] Michelle Rucker MD [address] [address] Type 1 diabetes mellitus with [...] mmol/L LAB CHEMISTRY METHOD 09/03/2024 10:30 AM [facility] Potassium 4.2 3.5 - 5.5 mmol/L LAB CHEMISTRY METHOD 09/03/2024 10:30 AM [facility] Chloride 99 96 - 110 mmol/L LAB CHEMISTRY METHOD 09/03/2024 10:30 AM [facility] CO2 30 21 - 32 mmol/L LAB CHEMISTRY METHOD 09/03/2024 10:30 AM [facility] Anion Gap 7 3 - 11 LAB CHEMISTRY METHOD 09/03/2024 10:30 AM [facility] Glucose 157(H) 70 - 100 mg/dL LAB CHEMISTRY METHOD 09/03/2024 10:30 AM [facility] BUN 37(H) 5 - 25 mg/dL LAB CHEMISTRY METHOD 09/03/2024 10:30 AM [facility] Creatinine 1.36(H) 0.70 - 1.30 mg/dL LAB CHEMISTRY METHOD 09/03/2024 10:30 AM [facility] eGFR 57(L) >=60 mL/min/1. 73m2 LAB CHEMISTRY METHOD 09/03/2024 10:30 AM [facility] Comment:Calculation based on the Chronic Kidney Disease Epidemiology Collaboration (CKD-EPI) equation refit without adjustment for race. BUN/Creatinine Ratio 27.2 LAB CHEMISTRY METHOD 09/03/2024 10:30 AM [facility] Calcium 9.6 8.5 - 10.5 mg/dL LAB CHEMISTRY METHOD 09/03/2024 10:30 AM [facility] Blood Venous blood specimen / Unknown Venipuncture / Unknown 09/03/2024 6:15 AM EDT 09/03/2024 10:24 AM EDT us Michelle Rucker MD LAB BLOOD ORDERABLES Fin al Result [facility] [address] [place] [address], [place] [phone] * (ABNORMAL) Complete blood count (09/03/2024 6:15 AM EDT) [facility] WBC 7.5 4.8 - 10.8 K/mcL LAB HEMETOLOGY METHOD 09/03/2024 10:04 AM EDT [facility] RBC 3.90(L) 4.50 - 5.50 M/mcL LAB HEMETOLOGY METHOD [facility] Hemoglobin 9.9(L) 13.5 - 17.5 g/dL LAB HEMETOLOGY METHOD 09/03/2024 10:04 AM EDT [facility] Hematocrit 30.8(L) 42.0 - 54.0 % LAB HEMETOLOGY METHOD 09/03/2024 10:[facility] MCV 79.6 79.0 - 98.0 FL LAB HEMETOLOGY METHOD 09/03/2024 10:[facility] MCH 25.6(L) 27.0 - 32.0 pcg LAB HEMETOLOGY METHOD 09/03/2024 10:04 AM EDT [facility] MCHC 32.1 32.0 - 37.0 g/dL LAB HEMETOLOGY METHOD 09/03/2024 10:[facility] RDW 14.6 11.0 - 15.0 % LAB HEMETOLOGY METHOD 09/03/2024 10:04 AM [facility] Platelets 313 130 - 400 K/mcL LAB HEMETOLOGY METHOD 09/03/2024 10:04 AM EDT [facility] MPV 10.4 7.0 - 11.0 FL LAB HEMETOLOGY METHOD 09/03/2024 10:04 AM EDT [facility] NRBC 0.0 <1.0 % LAB HEMETOLOGY METHOD 09/03/2024 10:04 AM EDT [facility] NRBC Absolute 0.00 <0.10 K/mcL LAB HEMETOLOGY METHOD 09/03/2024 10:04 AM EDT [facility] Blood Venous blood specimen / Unknown Venipuncture / Unknown 09/03/2024 6:15 AM EDT 09/03/2024 10:03 AM EDT Michelle Rucker MD LAB BLOOD ORDERABLES Fin al Result [facility] [address] [place] [address], documented in this encounter Visit Diagnoses Diagnosis Type 1 diabetes mellitus with diabetic neuropathy, unspecified (CMS/HCC V24, CMS/[facility] V28) 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
--- OUTSIDE RECORDS SUMMARY | 2025-04-16 11:26 | XMS_ITS | Encounter Summary ---
Author Organization [facility] Address [address] [place] [phone] Care Team Providers Care Crewman Main Battle Tank Name Role Phone Michelle Rucker MD Primary Care Provider + Encounter Details Date Type Department Care Team (Late st Contact Info) Description 08/13/2024 Lab Requisition [facility] - Main Lab [address] [place] [address] Michelle Rucker MD [address] [phone] Vitamin D deficiency, unspecified; Malignant (primary) neoplasm, [...] mmol/L LAB CHEMISTRY METHOD 08/14/2024 10:39 AM [facility] Potassium 4.4 3.5 - 5.5 mmol/L LAB CHEMISTRY METHOD 08/14/2024 10:39 AM [facility] Chloride 94(L) 96 - 110 mmol/L LAB CHEMISTRY METHOD 08/14/2024 10:39 AM [facility] CO2 30 21 - 32 mmol/L LAB CHEMISTRY METHOD 08/14/2024 10:39 AM [facility] Anion Gap 6 3 - 11 LAB CHEMISTRY METHOD 08/14/2024 10:39 AM [facility] Glucose 277(H) 70 - 100 mg/dL LAB CHEMISTRY METHOD 08/14/2024 10:39 AM [facility] BUN 34(H) 5 - 25 mg/dL LAB CHEMISTRY METHOD 08/14/2024 10:39 AM [facility] Creatinine 1.45(H) 0.70 - 1.30 mg/dL LAB CHEMISTRY METHOD 08/14/2024 10:39 AM [facility] eGFR 53(L) >=60 mL/min/1. 73m2 LAB CHEMISTRY METHOD 08/14/2024 10:39 AM [facility] Comment:Calculation based on the Chronic Kidney Disease Epidemiology Collaboration (CKD-EPI) equation refit without adjustment for race. BUN/Creatinine Ratio 23.4 LAB CHEMISTRY METHOD 08/14/2024 10:39 AM [facility] Calcium 9.8 8.5 - 10.5 mg/dL LAB CHEMISTRY METHOD 08/14/2024 10:39 AM [facility] Blood Venous blood specimen / Unknown Venipuncture / Unknown 08/14/2024 7:21 AM EST 08/14/2024 8:35 AM EST us Michelle Rucker MD LAB BLOOD ORDERABLES Fin al Result [facility] [address] [place] [address], * (ABNORMAL) Complete blood count (08/14/2024 7:21 AM EST) [facility] WBC 12.8(H) 4.8 - 10.8 K/mcL LAB HEMETOLOGY METHOD 08/14/2024 9:50 AM [facility] RBC 4.00(L) 4.50 - 5.50 M/mcL LAB HEMETOLOGY METHOD 08/14/2024 9:50 AM [facility] Hemoglobin 10.3(L) 13.5 - 17.5 g/dL LAB HEMETOLOGY METHOD 08/14/2024 9:50 AM [facility] Hematocrit 33.3(L) 42.0 - 54.0 % LAB HEMETOLOGY METHOD 08/14/2024 9:50 AM [facility] MCV 84.1 79.0 - 98.0 FL LAB HEMETOLOGY METHOD 08/14/2024 9:50 AM [facility] MCH 26.0(L) 27.0 - 32.0 pcg LAB HEMETOLOGY METHOD 08/14/2024 9:50 AM [facility] MCHC 30.9(L) 32.0 - 37.0 g/dL LAB HEMETOLOGY METHOD 08/14/2024 9:50 AM [facility] RDW 14.9 11.0 - 15.0 % LAB HEMETOLOGY METHOD 08/14/2024 9:50 AM [facility] Platelets 373 130 - 400 K/mcL LAB HEMETOLOGY METHOD 08/14/2024 9:50 AM [facility] MPV 10.4 7.0 - 11.0 FL LAB HEMETOLOGY METHOD 08/14/2024 9:50 AM [facility] NRBC 0.0 <1.0 % LAB HEMETOLOGY METHOD 08/14/2024 9:50 AM EST [facility] NRBC Absolute 0.00 <0.10 K/mcL LAB HEMETOLOGY METHOD 08/14/2024 9:50 AM EST [facility] Blood Venous blood specimen / Unknown Venipuncture / Unknown 08/14/2024 7:21 AM EST 08/14/2024 8:35 AM EST us Michelle Rucker MD LAB BLOOD ORDERABLES Fin al Result [facility] [address] [place] [address], documented in this encounter Visit Diagnoses Diagnosis Vitamin D deficiency, unspecified Malignant (primary) neoplasm, unspecified (CMS/HCC V24, CMS/HCC V28) Kidney transplant status documented in this encounter Additional Health Concerns Infection Onset Date Last Indicated Resolved Time C. difficile Rule-Out 08/14/2024 08/13/20242024 11:06 AM EST MDRO (other) 12/15/2024 12/15/2024 documented as of this encounter Care Teams Crewman Main Battle Tank Relationship Specialty Start Date End Date Michelle Rucker MD [address] [place] [phone] PCP - General Family Medicine 05/06/24 documented as of this encounter
--- OUTSIDE RECORDS SUMMARY | 2025-04-16 11:26 | XMS_ITS | Encounter Summary ---
Author Organization [facility] Address [address] [place] [phone] Care Team Providers Care Switchboard And Control Room Operator Name Role Phone Michelle Rucker MD Primary Care Provider + Encounter Details Date Type Department Care Team (Late st Contact Info) Description 08/26/2024 Lab Requisition [facility] - Main Lab [address] [facility] [place] [address] Michelle Rucker MD [address] [address] Type 1 diabetes mellitus with [...] the performance characteristics determined by [facility]. This confirmation testing has not been cleared or approved by the FDA. The laboratory is regulated under CLIA as qualified to perform high-complexity testing. This test is used for patient testing purposes. It should not be regarded as investigational or for research. Test performed at [facility], [address] , [place] [address] Brittanie Horan MD, PhD - Project Engineer Blood Venous blood specimen / Unknown Venipuncture / Unknown 08/27/2024 6:26 AM EST 08/27/2024 8:10 AM EST us Michelle Rucker MD LAB BLOOD ORDERABLES Fin al Result [facility] [address] [place] [address] * (ABNORMAL) Basic metabolic panel (08/27/2024 6:26 AM EST) Sodium 132(L) 133 - 145 mmol/L LAB CHEMISTRY METHOD 08/27/2024 9:15 AM [facility] Potassium 4.2 3.5 - 5.5 mmol/L LAB CHEMISTRY METHOD 08/27/2024 9:15 AM [facility] Chloride 98 96 - 110 mmol/L LAB CHEMISTRY METHOD 08/27/2024 9:15 AM [facility] CO2 26 21 - 32 mmol/L LAB CHEMISTRY METHOD 08/27/2024 9:15 AM [facility] Anion Gap 8 3 - 11 LAB CHEMISTRY METHOD 08/27/2024 9:15 AM [facility] Glucose 282(H) 70 - 100 mg/dL LAB CHEMISTRY METHOD 08/27/2024 9:15 AM [facility] BUN 29(H) 5 - 25 mg/dL LAB CHEMISTRY METHOD 08/27/2024 9:15 AM [facility] Creatinine 1.29 0.70 - 1.30 mg/dL LAB CHEMISTRY METHOD 08/27/2024 9:15 AM [facility] eGFR 61 >=60 mL/min/1. 73m2 LAB CHEMISTRY METHOD 08/27/2024 9:15 AM [facility] Comment:Calculation based on the Chronic Kidney Disease Epidemiology Collaboration (CKD-EPI) equation refit without adjustment for race. BUN/Creatinine Ratio 22.5 LAB CHEMISTRY METHOD 08/27/2024 9:15 AM [facility] Calcium 9.8 8.5 - 10.5 mg/dL LAB CHEMISTRY METHOD 08/27/2024 9:15 AM [facility] Blood Venous blood specimen / Unknown Venipuncture / Unknown 08/27/2024 6:26 AM EST 08/27/2024 8:10 AM EST us Michelle Rucker MD LAB BLOOD ORDERABLES Fin al Result [facility] [address] [place] [address], * (ABNORMAL) Complete blood count (08/27/2024 6:26 AM EST) [facility] WBC 9.7 4.8 - 10.8 K/mcL LAB HEMETOLOGY METHOD 08/27/2024 8:48 AM [facility] RBC 4.00(L) 4.50 - 5.50 M/mcL LAB HEMETOLOGY METHOD 08/27/2024 8:48 AM [facility] Hemoglobin 10.1(L) 13.5 - 17.5 g/dL LAB HEMETOLOGY METHOD 08/27/2024 8:48 AM [facility] Hematocrit 31.6(L) 42.0 - 54.0 % LAB HEMETOLOGY METHOD 08/27/2024 8:48 AM [facility] MCV 79.8 79.0 - 98.0 FL LAB HEMETOLOGY METHOD 08/27/2024 8:48 AM [facility] MCH 25.5(L) 27.0 - 32.0 pcg LAB HEMETOLOGY METHOD 08/27/2024 8:48 AM [facility] MCHC 32.0 32.0 - 37.0 g/dL LAB HEMETOLOGY METHOD 08/27/2024 8:48 AM [facility] RDW 15.0 11.0 - 15.0 % LAB HEMETOLOGY METHOD 08/27/2024 8:48 AM [facility] Platelets 348 130 - 400 K/mcL LAB HEMETOLOGY METHOD 08/27/2024 8:48 AM [facility] MPV 10.1 7.0 - 11.0 FL LAB HEMETOLOGY METHOD 08/27/2024 8:48 AM [facility] NRBC 0.0 <1.0 % LAB HEMETOLOGY METHOD 08/27/2024 8:48 AM EST [facility] NRBC Absolute 0.00 <0.10 K/mcL LAB HEMETOLOGY METHOD 08/27/2024 8:48 AM EST [facility] Blood Venous blood specimen / Unknown Venipuncture / Unknown 08/27/2024 6:26 AM EST 08/27/2024 8:10 AM EST us Michelle Rucker MD LAB BLOOD ORDERABLES Fin al Result [facility] [address] [place] [address], documented in this encounter Visit Diagnoses Diagnosis Type 1 diabetes mellitus with diabetic neuropathy, unspecified ([facility] V24, [facility] V28) 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 Hyperlipidemia, unspecified End stage renal disease ([facility] V24, [facility] V28) End stage renal disease documented in this encounter Additional Health Concerns Infection Onset Date Last Indicated Resolved Time MDRO (other) 12/15/2024 12/15/2024 documented as of this encounter Care Teams Switchboard And Control Room Operator Relationship Specialty Start Date End Date Michelle Rucker MD [address] [place] [id number] PCP - General Family Medicine 05/06/24 documented as of this encounter
--- OUTSIDE RECORDS SUMMARY | 2025-04-16 11:26 | XMS_ITS | Clinical Summary ---
Author Organization [address] Address [address] [place] [address] Phone Care Team Providers Care Health Advocate Name Role Phone Elder, Michelle Alonso MD Primary Care Provider + Social History Tobacco Use Types Packs/Day Years Used Date Smoking Tobacco: Never Assessed Sex and Gender Information Value Date Recorded Sex Assigned at Not on file Legal Sex Male 7:48 PM EST Gender Identity Not on file Sexual Orientation Not on file Plan of Treatment Health Maintenance Due Date Last Done Comments Colorectal Cancer Screening: Colonoscopy 1957 Diabetes: Annual Foot Exam 09/22/1967 Diabetes: Annual Retina Eye Exam 09/22/1967 Zoster Vaccines (1 of 2) 1976 RSV Immunization Adult Patients (1 - Risk 50-74 years 1-dose series) 09/22/2007 Pneumococcal Vaccine: 50+ Years (4 of 4 - PCV20 or PCV21) 01/16/2022 01/16/2017, 09/22/2015, 03/01/2015, Additional history exists Cholesterol Screening (Lipid Panel) 04/29/2024 Falls Risk Assessment 04/29/2024 Hepatitis C Screening 04/29/2024 Medicare Annual Wellness Visit 04/29/2024 Social Influencers of Health Screening 04/29/2024 Depression Screening 06/24/2024 COVID-19 Vaccine ( season) 2025 03/02/2021, 08/12/2020, 07/12/2020 Influenza Vaccine [...] EDT Chronic kidney disease, stage 4 (severe) ([facility]/HCC V24, CMS/HCC V28) HEMOGLOBIN A1C Routine 10/02/2024 6:50 AM EDT Immunodeficiency, unspecified ([facility] V24) MICROALBUMIN CREATININE URINE RATIO Routine 10/01/2024 1:45 PM EDT Acute kidney failure, unspecified (CMS/HCC V24) Other acute kidney failure (CMS/[facility] V24) from Last 3 Months or Most Recently Relevant to Health Maintenance Results * (ABNORMAL) Basic metabolic panel (10/30/2024 7:43 AM EDT) Sodium 141 133 - 145 mmol/L LAB CHEMISTRY METHOD 10/30/2024 9:54 AM [facility] Potassium 4.6 3.5 - 5.5 mmol/L LAB CHEMISTRY METHOD 10/30/2024 9:54 AM [facility] Chloride 110 96 - 110 mmol/L LAB CHEMISTRY METHOD 10/30/2024 9:54 AM [facility] CO2 26 21 - 32 mmol/L LAB CHEMISTRY METHOD 10/30/2024 9:54 AM [facility] Anion Gap 5 3 - 11 LAB CHEMISTRY METHOD 10/30/2024 9:54 AM [facility] Glucose 114(H) 70 - 100 mg/dL LAB CHEMISTRY METHOD 10/30/2024 9:54 AM [facility] BUN 30(H) 5 - 25 mg/dL LAB CHEMISTRY METHOD 10/30/2024 9:54 AM [facility] Creatinine 1.95(H) 0.70 - 1.30 mg/dL LAB CHEMISTRY METHOD 10/30/2024 9:54 AM [facility] eGFR 37(L) >=60 mL/min/1. 73m2 LAB CHEMISTRY METHOD 10/30/2024 9:54 AM [facility] Comment:Calculation based on the Chronic Kidney Disease Epidemiology Collaboration (CKD-EPI) equation refit without adjustment for race. BUN/Creatinine Ratio 15.4 LAB CHEMISTRY METHOD 10/30/2024 9:54 AM [facility] Calcium 9.1 8.5 - 10.5 mg/dL LAB CHEMISTRY METHOD 10/30/2024 9:54 AM [facility] Blood Venous blood specimen / Unknown Venipuncture / Unknown 10/30/2024 7:43 AM EDT 10/30/2024 9:16 AM EDT Michelle Rucker MD LAB BLOOD ORDERABLES Fin al Result Performing Organization Address [facility]/ZIP Co de Phone Number [facility] [address] [place] [address], [place] [phone] * (ABNORMAL) Hemoglobin A1c (10/02/2024 6:50 AM EDT) Hemoglobin A1C 7.3(H) <6.5 % LAB CHEMISTRY METHOD 10/02/2024 2:09 PM EDT [facility] Mean Bld Glu Estim. 163 mg/dL LAB CHEMISTRY METHOD 10/02/2024 2:09 PM EDT [facility] Blood Venous blood specimen / Unknown Venipuncture / Unknown 10/02/2024 6:50 AM EDT 10/02/2024 8:49 AM EDT Michelle Rucker MD LAB BLOOD ORDERABLES Fin al Result Performing Organization Address City/[facility]/ZIP Co de Phone Number [facility] [address] [place] [address], [place] [phone] * (ABNORMAL) Microalbumin creatinine urine ratio (10/01/2024 1:45 PM EDT) Creatinine, Urine 27.0 mg/dL LAB CHEMISTRY METHOD 10/02/2024 10:08 AM EDT [facility] Microalb, Ur 30.7(H) 0.0 - 29.0 mg/L LAB CHEMISTRY METHOD 10/02/2024 10:08 AM EDT [facility] Microalb/Crea t Ratio 114(H) <30 mg/g creat LAB CHEMISTRY METHOD 10/02/2024 10:08 AM EDT [facility] Urine Urine specimen obtained by clean catch procedure / Unknown Non-blood Collection / Unknown 10/01/2024 1:45 PM EDT 10/02/2024 8:46 AM EDT Michelle Rucker MD LAB URINE ORDERABLES Fin al Result [facility] [address] [place] [address], from Last 3 Months or Most Recently Relevant to Health Maintenance Additional Health Concerns Infection Onset Date Last Indicated MDRO (other) 12/15/2024 12/15/2024 Insurance [employer] Member Subscriber Plan / Payer (Ef fective 2016-Present) Name:HARVEY LAW Relation to Subscriber:Self Name:Harvey Law Payer ID:[id number] Group ID:[id number] Type:Not on file Address: [place] [address] [address] [address] Care Teams Health Advocate Relationship Specialty Start Date End Date Michelle Rucker MD [address] [address] PCP - General Family Medicine 05/06/24
--- OUTSIDE RECORDS SUMMARY | 2025-04-16 11:26 | XMS_ITS | Encounter Summary ---
Author Organization [facility] Address [address] [place] [phone] Care Team Providers Care Records And Tape Recordings Engineer Name Role Phone Michelle Rucker MD Primary Care Provider + Encounter Details Date Type Department Care Team (Late st Contact Info) Description 08/19/2024 Lab Requisition [facility] - Main Lab 299 [facility] [place] [address] Michelle Rucker MD [address] [address] Type 1 diabetes mellitus with [...] mmol/L LAB CHEMISTRY METHOD 08/20/2024 11:10 AM [facility] Potassium 4.4 3.5 - 5.5 mmol/L LAB CHEMISTRY METHOD 08/20/2024 11:10 AM [facility] Chloride 98 96 - 110 mmol/L LAB CHEMISTRY METHOD 08/20/2024 11:10 AM [facility] CO2 31 21 - 32 mmol/L LAB CHEMISTRY METHOD 08/20/2024 11:10 AM [facility] Anion Gap 4 3 - 11 LAB CHEMISTRY METHOD 08/20/2024 11:10 AM [facility] Glucose 158(H) 70 - 100 mg/dL LAB CHEMISTRY METHOD 08/20/2024 11:10 AM [facility] BUN 28(H) 5 - 25 mg/dL LAB CHEMISTRY METHOD 08/20/2024 11:10 AM [facility] Creatinine 1.21 0.70 - 1.30 mg/dL LAB CHEMISTRY METHOD 08/20/2024 11:10 AM [facility] eGFR 66 >=60 mL/min/1. 73m2 LAB CHEMISTRY METHOD 08/20/2024 11:10 AM [facility] Comment:Calculation based on the Chronic Kidney Disease Epidemiology Collaboration (CKD-EPI) equation refit without adjustment for race. BUN/Creatinine Ratio 23.1 LAB CHEMISTRY METHOD 08/20/2024 11:10 AM [facility] Calcium 9.7 8.5 - 10.5 mg/dL LAB CHEMISTRY METHOD 08/20/2024 11:10 AM [facility] Blood Venous blood specimen / Unknown Venipuncture / Unknown 08/20/2024 7:05 AM EST 08/20/2024 9:40 AM EST us Michelle Rucker MD LAB BLOOD ORDERABLES Fin al Result [facility] [address] [place] [address], * (ABNORMAL) Complete blood count (08/20/2024 7:05 AM EST) WBC 8.6 4.8 - 10.8 K/mcL LAB HEMETOLOGY METHOD 08/20/2024 9:55 AM [facility] RBC 3.90(L) 4.50 - 5.50 M/mcL LAB HEMETOLOGY METHOD 08/20/2024 9:55 AM [facility] Hemoglobin 10.0(L) 13.5 - 17.5 g/dL LAB HEMETOLOGY METHOD 08/20/2024 9:55 AM [facility] Hematocrit 32.3(L) 42.0 - 54.0 % LAB HEMETOLOGY METHOD 08/20/2024 9:55 AM [facility] MCV 83.2 79.0 - 98.0 FL LAB HEMETOLOGY METHOD 08/20/2024 9:55 AM [facility] MCH 25.8(L) 27.0 - 32.0 pcg LAB HEMETOLOGY METHOD 08/20/2024 9:55 AM [facility] MCHC 31.0(L) 32.0 - 37.0 g/dL LAB HEMETOLOGY METHOD 08/20/2024 9:55 AM [facility] RDW 14.8 11.0 - 15.0 % LAB HEMETOLOGY METHOD 08/20/2024 9:55 AM [facility] Platelets 369 130 - 400 K/mcL LAB HEMETOLOGY METHOD 08/20/2024 9:55 AM [facility] MPV 10.0 7.0 - 11.0 FL LAB HEMETOLOGY METHOD 08/20/2024 9:55 AM EST [facility] NRBC 0.0 <1.0 % LAB HEMETOLOGY METHOD 08/20/2024 9:55 AM EST [facility] NRBC Absolute 0.00 <0.10 K/mcL LAB HEMETOLOGY METHOD 08/20/2024 9:55 AM EST [facility] Blood Venous blood specimen / Unknown Venipuncture / Unknown 08/20/2024 7:05 AM EST 08/20/2024 9:40 AM EST Michelle Rucker MD LAB BLOOD ORDERABLES Fin al Result [facility] [address] [place] [address], documented in this encounter Visit Diagnoses Diagnosis Type 1 diabetes mellitus with diabetic neuropathy, unspecified (CMS/HCC V24, CMS/HCC V28) 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
--- OUTSIDE RECORDS SUMMARY | 2025-04-16 11:26 | XMS_ITS | Encounter Summary ---
Author Organization [facility] Address [address] [facility] [address] [place] [address] Phone Care Team Providers Care Refinisher Name Role Phone Tennille Linton EXERCISE INSTRUCTOR Primary Care Provider + Anni Quiñonez PA Unavailable [phone] Encounter Details Date Type Department Care Team (Late st Contact Info) Description 03/02/2025 Procedure Pass [facility] Supervisor Home Economics [place] [address] [place] [address] Social History Tobacco Use Types Packs/Day Years [...] Upcoming Encounters Date Type Department Care Team ([facility] st Contact Info) Description 04/22/2025 7:50 AM EDT Telemedicine [facility] Urology [address] [place], [place] [address] [place] [address] Bartolome Sandy MD, MS [address] [facility], [facility] [address] [place] [address] [email or web address] 05/18/2025 1:00 PM EST Office Visit [facility] [address] [place] [address] Daisy Diaz MD, MPH [address] [facility] [address] [place] [address] [email or web address] documented as of this encounter Visit Diagnoses Not on filedocumented in this encounter Care Teams Refinisher Relationship Specialty Start Date End Date Tennille Linton NP [address] [place] [phone] PCP - General Nurse Practitioner 08/30/23 Anni Quiñonez PA [address] [place] [phone] [email or web address] Physician Md Urologist 08/30/23 shana myers [facility] Parts Cleaner Cardiology 03/12/24 documented as of this encounter Additional Source Comments The information contained in this document represents components of the legal health record. It is not the complete legal health record.[facility]
--- OUTSIDE RECORDS SUMMARY | 2025-04-16 11:26 | XMS_ITS | Encounter Summary ---
Author Organization [facility] Address [address] [place] [address] [place] [address] Phone Care Team Providers Care Director Emergency Services Name Role Phone Tennille Linton NP Primary Care Provider + Anni Quiñonez PA Unavailable [phone] Encounter Details Date Type Department Care Team (Late st Contact Info) Description 09/17/2024 Procedure Pass [facility] Imaging [facility], [facility] [place], [place] [address] [facility], Floor [address] [place] [address] Social History Tobacco Use Types Packs/Day Years [...] Info) Description 04/22/2025 7:[address] [facility] Urology [address] [place], [place] [id number] [place] [address] Bartolome Sandy MD, MS 45 [facility], [facility] [address] [place] [address] [email or web address] 05/18/2025 1:00 PM EST Office Visit [facility] Center [address] [place] [address] Daisy Diaz MD, MPH [address] [facility] [address] [place] [address] [email or web address] documented as of this encounter Visit Diagnoses Not on filedocumented in this encounter Care Teams Director Emergency Services Relationship Specialty Start Date End Date Tennille Linton NP [address] [place] [phone] PCP - General Nurse Practitioner 08/30/23 Anni Quiñonez PA [address] [address] [email or web address] Physician Shearer Operator 08/30/23 shana myers [facility] Program [facility] Optimization Engineer Cardiology 03/12/24 documented as of this encounter Additional Source Comments The information contained in this document represents components of the legal health record. It is not the complete legal health record.[facility]
--- OUTSIDE RECORDS SUMMARY | 2025-04-16 11:26 | XMS_ITS | Encounter Summary ---
Author Organization [facility] Address [address] [place] [address] Care Team Providers Care Head Of Transport Logistics Name Role Phone Michelle Rucker MD Primary Care Provider + Encounter Details Date Type Department Care Team (Late st Contact Info) Description 10/28/2024 Lab Requisition [facility] - Main Lab 299 [facility] [place] [address] Michelle Rucker MD 819 [facility] 1 [place], [place] [phone] Urinary tract infection, site not specified Social [...] * Culture urine (10/28/2024 12:00 AM EDT) [facility] Culture, Urine <10,000 CFU/mL Yeast, insignificant count, no further workup 10/29/2024 10:40 AM [facility] Urine Urine specimen obtained by clean catch procedure / Unknown Non-blood Collection / Unknown 10/28/2024 10/28/2024 12:21 PM EDT us Michelle Rucker MD LAB MICROBIOLOGY - [facility] AL ORDERABLES Final Result [facility] [address] [place] [address], [place] [phone] * (ABNORMAL) Urinalysis with reflex microscopic and culture (10/28/2024 12:00 AM EDT) [facility] Specific [place] Urine 1.010 1.003 - 1.030 LAB URINALYSIS - AUTOMATED METHOD 10/28/2024 12:21 PM [facility] pH, Urine 7.0 5.0 - 8.0 pH LAB URINALYSIS - AUTOMATED METHOD 10/28/2024 12:21 PM [facility] Leukocytes, Urine Large(A) Negative LAB URINALYSIS - AUTOMATED METHOD 10/28/2024 12:21 PM [facility] Nitrite, Urine Negative Negative LAB URINALYSIS - AUTOMATED METHOD 10/28/2024 12:21 PM [facility] Protein, Urine 100(A) <=Trace mg/dL LAB URINALYSIS - AUTOMATED METHOD 10/28/2024 12:21 PM [facility] Glucose, Urine Negative Negative mg/dL LAB URINALYSIS - AUTOMATED METHOD 10/28/2024 12:21 PM [facility] Ketones, Urine Negative Negative mg/dL LAB URINALYSIS - AUTOMATED METHOD 10/28/2024 12:21 PM [facility] Urobilinogen , Urine 0.2 0.2 - 1.0 mg/dL LAB URINALYSIS - AUTOMATED METHOD 10/28/2024 12:21 PM [facility] Bilirubin, Urine Negative Negative LAB URINALYSIS - AUTOMATED METHOD 10/28/2024 12:21 PM [facility] Blood, Urine Moderate(A) Negative LAB URINALYSIS - AUTOMATED METHOD 10/28/2024 12:21 PM [facility] RBC, Urine 2.3 0 - 4 /HPF LAB URINALYSIS - AUTOMATED METHOD 10/28/2024 12:21 PM [facility] WBC, Urine 647.0(H) 0 - 4 /HPF LAB URINALYSIS - AUTOMATED METHOD 10/28/2024 12:21 PM [facility] Squamous Epithelial, Urine 28 0 - 60 /LPF LAB URINALYSIS - AUTOMATED METHOD 10/28/2024 12:21 PM [facility] Bacteria, Urine Few(A) Negative /HPF LAB URINALYSIS - AUTOMATED METHOD 10/28/2024 12:21 PM [facility] Hyaline Casts, Urine 3.2(H) 0 - 3 /LPF LAB URINALYSIS - AUTOMATED METHOD 10/28/2024 12:21 PM [facility] Yeast, Urine Present(A) None /HPF LAB URINALYSIS - AUTOMATED METHOD 10/28/2024 12:21 PM [facility] Urine Urine specimen obtained by clean catch procedure / Unknown Non-blood Collection / Unknown 10/28/2024 10/28/2024 10:05 AM EDT us Michelle Rucker MD LAB URINE ORDERABLES Fin al Result [facility] [address] [place] [address], * Scott urine culture tube (10/28/2024 12:00 AM EDT) Extra Tube Hold for add-ons. 10/28/2024 1:[address] [facility] Comment:Auto resulted. Urine Urine specimen obtained by clean catch procedure / Unknown Non-blood Collection / Unknown 10/28/2024 10/28/2024 10:05 AM EDT Michelle Rucker MD LAB URINE ORDERABLES Fin al Result [facility] [address] [place] [address], documented in this encounter Visit Diagnoses Diagnosis Urinary tract infection, site not specified documented in this encounter Additional Health Concerns Infection Onset Date Last Indicated Resolved Time MDRO (other) 12/15/2024 12/15/2024 documented as of this encounter Care Teams Head Of Transport Logistics Relationship Specialty Start Date End Date Michelle Rucker MD [address] [place] [address] PCP - General Family Medicine 05/06/24 documented as of this encounter
--- OUTSIDE RECORDS SUMMARY | 2025-04-16 11:26 | XMS_ITS | Encounter Summary ---
Author Organization [facility] Address [address] [place] [address] Care Team Providers Care Coremaker Machine Name Role Phone Elder, Michelle Alonso MD Primary Care Provider + Encounter Details Date Type Department Care Team (Late st Contact Info) Description 11/09/2024 Lab Requisition [facility] - Main Lab 299 [facility] [place] [place] [address] Román Betancur MD [address] [place] [address] Urinary tract infection, site not [...] albicans/du bliniensis( A) 11/11/2024 9:02 AM EDT [facility] Comment: Edited result: Previously reported as Yeast on 11/10/2024 at 1409 EDT. Urine Urine specimen obtained by clean catch procedure / Unknown 11/09/2024 1:00 PM EDT 11/09/2024 6:27 PM EDT us Román Betancur MD LAB MICROBIOLOGY - GENERAL ORD ERABLES Final Result [facility] [address] [place] [address], documented in this encounter Visit Diagnoses Diagnosis Urinary tract infection, site not specified documented in this encounter Additional Health Concerns Infection Onset Date Last Indicated Resolved Time MDRO (other) 12/15/2024 12/15/2024 documented as of this encounter Care Teams Coremaker Machine Relationship Specialty Start Date End Date Michelle Rucker MD [address] [place] [address] PCP - General Family Medicine 05/06/24 documented as of this encounter
--- OUTSIDE RECORDS SUMMARY | 2025-04-16 11:26 | XMS_ITS | Encounter Summary ---
Author Organization [facility] Address [address] [place] [address] Care Team Providers Care Assistant Corporate Secretary Name Role Phone Michelle Rucker MD Primary Care Provider + Encounter Details Date Type Department Care Team (Late st Contact Info) Description 10/26/2024 Lab Requisition [facility] - Main Lab 299 [facility] [employer] [place] [address] Michelle Rucker MD [address] [address] Kidney transplant status Social History [...] performed at [facility], [address], [place] [address] Brittanie Horan MD, PhD - Billet Worker Blood Venous blood specimen / Unknown Venipuncture / Unknown 10/27/2024 8:34 AM EDT 10/27/2024 9:32 AM EDT Michelle Rucker MD LAB BLOOD ORDERABLES Fin al Result [facility] [address] [place] [address] documented in this encounter Visit Diagnoses Diagnosis Kidney transplant status documented in this encounter Additional Health Concerns Infection Onset Date Last Indicated Resolved Time MDRO (other) 12/15/2024 12/15/2024 documented as of this encounter Care Teams Assistant Corporate Secretary Relationship Specialty Start Date End Date Michelle Rucker MD [address] [place] [address] PCP - General Family Medicine 05/06/24 documented as of this encounter
--- OUTSIDE RECORDS SUMMARY | 2025-04-16 11:26 | XMS_ITS | Encounter Summary ---
Author Organization [facility] Address [address] [place] [address] Care Team Providers Care Counter Sales Representative Name Role Phone Michelle Rucker MD Primary Care Provider + Encounter Details Date Type Department Care Team (Late st Contact Info) Description 10/29/2024 Lab Requisition [facility] - Main Lab [address] [place] [address] Michelle Rucker MD [address] [phone] Weakness Social History Tobacco Use Types Packs/Day [...] LAB CHEMISTRY METHOD 10/29/2024 11:00 AM EDT [facility] Potassium 4.6 3.5 - 5.5 mmol/L LAB CHEMISTRY METHOD 10/29/2024 11:00 AM EDT [facility] Chloride 106 96 - 110 mmol/L LAB CHEMISTRY METHOD 10/29/2024 11:00 AM [facility] CO2 27 21 - 32 mmol/L LAB CHEMISTRY METHOD 10/29/2024 11:00 AM [facility] Anion Gap 7 3 - 11 LAB CHEMISTRY METHOD 10/29/2024 11:00 AM [facility] Glucose 154(H) 70 - 100 mg/dL LAB CHEMISTRY METHOD 10/29/2024 11:00 AM [facility] BUN 34(H) 5 - 25 mg/dL LAB CHEMISTRY METHOD 10/29/2024 11:00 AM [facility] Creatinine 2.16(H) 0.70 - 1.30 mg/dL LAB CHEMISTRY METHOD 10/29/2024 11:00 AM [facility] eGFR 33(L) >=60 mL/min/1. 73m2 LAB CHEMISTRY METHOD 10/29/2024 11:00 AM [facility] Comment:Calculation based on the Chronic Kidney Disease Epidemiology Collaboration (CKD-EPI) equation refit without adjustment for race. BUN/Creatinine Ratio 15.7 LAB CHEMISTRY METHOD 10/29/2024 11:00 AM [facility] Calcium 9.1 8.5 - 10.5 mg/dL LAB CHEMISTRY METHOD 10/29/2024 11:00 AM [facility] AST (SGOT) 14 10 - 42 unit/L LAB CHEMISTRY METHOD 10/29/2024 11:00 AM [facility] ALT (SGPT) 11 10 - 60 unit/L LAB CHEMISTRY METHOD 10/29/2024 11:00 AM [facility] Alkaline Phosphatase 58 42 - 121 unit/L LAB CHEMISTRY METHOD 10/29/2024 11:00 AM [facility] Total Protein 6.6 6.0 - 8.0 g/dL LAB CHEMISTRY METHOD 10/29/2024 11:00 AM [facility] Albumin 2.7(L) 3.2 - 5.0 g/dL LAB CHEMISTRY METHOD 10/29/2024 11:00 AM [facility] Total Bilirubin 0.7 0.0 - 1.4 mg/dL LAB CHEMISTRY METHOD 10/29/2024 11:00 AM [facility] Blood Venous blood specimen / Unknown Venipuncture / Unknown 10/29/2024 7:50 AM EDT 10/29/2024 9:52 AM EDT us Michelle Rucker MD LAB BLOOD ORDERABLES Fin al Result [facility] [address] [place] [address], * (ABNORMAL) Complete blood count (10/29/2024 7:50 AM EDT) WBC 6.6 4.8 - 10.8 K/mcL LAB HEMETOLOGY METHOD 10/29/2024 10:17 AM [facility] RBC 4.40(L) 4.50 - 5.50 M/mcL LAB HEMETOLOGY METHOD 10/29/2024 10:17 AM [facility] Hemoglobin 10.7(L) 13.5 - 17.5 g/dL LAB HEMETOLOGY METHOD 10/29/2024 10:17 AM [facility] Hematocrit 35.0(L) 42.0 - 54.0 % LAB HEMETOLOGY METHOD 10/29/2024 10:17 AM [facility] MCV 79.0 79.0 - 98.0 FL LAB HEMETOLOGY METHOD 10/29/2024 10:17 AM [facility] MCH 24.2(L) 27.0 - 32.0 pcg LAB HEMETOLOGY METHOD 10/29/2024 10:17 AM [facility] MCHC 30.6(L) 32.0 - 37.0 g/dL LAB HEMETOLOGY METHOD 10/29/2024 10:17 AM EDT [facility] RDW 14.8 11.0 - 15.0 % LAB HEMETOLOGY METHOD 10/29/2024 10:17 AM EDT [facility] Platelets 248 130 - 400 K/mcL LAB HEMETOLOGY METHOD 10/29/2024 10:17 AM EDT [facility] MPV 10.5 7.0 - 11.0 FL LAB HEMETOLOGY METHOD 10/29/2024 10:17 AM EDT [facility] NRBC 0.0 <1.0 % LAB HEMETOLOGY METHOD 10/29/2024 10:17 AM EDT [facility] NRBC Absolute 0.00 <0.10 K/mcL LAB HEMETOLOGY METHOD 10/29/2024 10:17 AM EDT [facility] Blood Venous blood specimen / Unknown Venipuncture / Unknown 10/29/2024 7:50 AM EDT 10/29/2024 9:52 AM EDT Michelle Rucker MD LAB BLOOD ORDERABLES Fin al Result [facility] [address] [place] [address], documented in this encounter Visit Diagnoses Diagnosis Weakness Other malaise and fatigue documented in this encounter Additional Health Concerns Infection Onset Date Last Indicated Resolved Time MDRO (other) 12/15/2024 12/15/2024 documented as of this encounter Care Teams Counter Sales Representative Relationship Specialty Start Date End Date Michelle Rucker MD [address] [place] [address] PCP - General Family Medicine 05/06/24 documented as of this encounter
--- OUTSIDE RECORDS SUMMARY | 2025-04-16 11:26 | XMS_ITS | Encounter Summary ---
Author Organization [facility] Address [address] [place] [address] Care Team Providers Care Heavy Equipment Engine Mechanic Name Role Phone Michelle Rucker MD Primary Care Provider + Encounter Details Date Type Department Care Team (Late st Contact Info) Description 10/19/2024 Lab Requisition [facility] - Main Lab 299 [facility] [place] [address] Michelle Rucker MD [address] [phone] Acute kidney failure, unspecified (CMS/HCC V24); Encounter [...] [facility], [address], [place] [address] Brittanie Horan MD, PhD - Supervising Deputy Blood Venous blood specimen / Unknown Venipuncture / Unknown 10/20/2024 8:08 AM EDT 10/20/2024 9:11 AM EDT Michelle Rucker MD LAB BLOOD ORDERABLES Fin al Result [facility] [address] [place] [address] documented in this encounter Visit Diagnoses Diagnosis Acute kidney failure, unspecified (CMS/[facility] V24) Acute kidney failure, unspecified Encounter for therapeutic drug level monitoring documented in this encounter Additional Health Concerns Infection Onset Date Last Indicated Resolved Time MDRO (other) 12/15/2024 12/15/2024 documented as of this encounter Care Teams Heavy Equipment Engine Mechanic Relationship Specialty Start Date End Date Michelle Rucker MD [address] [address] PCP - General Family Medicine 05/06/24 documented as of this encounter
--- OUTSIDE RECORDS SUMMARY | 2025-04-16 11:26 | XMS_ITS | Encounter Summary ---
Author Organization [facility] Address [address] [place] [address] Care Team Providers Care Translator Name Role Phone Michelle Rucker MD Primary Care Provider + Encounter Details Date Type Department Care Team (Late st Contact Info) Description 10/24/2024 Lab Requisition [facility] - Main Lab 299 [facility] [place] [address] Michelle Rucker MD [address] [address] Kidney transplant status Social History Tobacco Use [...] documented as of this encounter Care Teams Translator Relationship Specialty Start Date End Date Michelle Rucker MD [address] [place] [phone] PCP - General Family Medicine 05/06/24 documented as of this encounter
[2025-04-18 22:39] LABS: Tacrolimus Prograf 6.1 mcg/L
== END 2025-04-16 10:03 | disposition home or self-care (01) ==
LOC: HO.HVNA 10:02
PROVIDERS: Referring Provider Internal Medicine Nephrology; Visit Provider Physician Assistant Medical
DX: E10.22 Type 1 diabetes mellitus with diabetic chronic kidney disease (principal)
CPT/HCPCS: 36415; 80197; 83036

== ENCOUNTER 2025-04-29 14:41 | Outpatient (REF) | payer OTHER, SELFPAY ==
[2025-04-29 15:12] LABS: Appearance Urine Cloudy; Glucose Urine UA Negative (Negative); PH 6.5 (5.0-9.0); Specific Gravity - Urine 1.015 (1.005-1.025); UMIC TRIGGER UACC YES
[2025-04-29 15:29] LABS: UACC Culture Trigger YES
[2025-04-29 15:37] LABS: Microalbum/Creatinine Ratio Ur 84.2 ug/mg cr (<30)
[2025-04-30 13:09] LABS: BK DNA QN RT PCR, UR 4.87 Log IU/mL (NOT DETECTED); BK DNA QN RT PCR, UR 74800 IU/mL (NOT DETECTED)
== END 2025-04-29 14:42 | disposition home or self-care (01) ==
LOC: HO.HVNA 14:41
PROVIDERS: Visit Provider Internal Medicine Nephrology
DX: N18.31 Chronic kidney disease, stage 3a (principal)
CPT/HCPCS: 36415; 81001; 82043; 82570; 87086; 87799

== ENCOUNTER 2025-04-30 10:22 | Outpatient (REF) | payer OTHER, SELFPAY ==
--- OUTSIDE RECORDS SUMMARY | 2025-04-25 23:59 | XMS_ITS | Continuity of Care Document ---
Author Organization [facility] Adult Address [address] [place] [address]- Care Team Providers Care Fur Blower Operator Name Role Phone Royer AUTOMATION DRIVER, Tennille Anton Primary Care Physician [place] [facility] [place]/26/25 - 04/25/[address] [address] Encounter Type: Triage Allergies, Adverse Reactions, Alerts [...] virus vaccine, inactivated 03/18/12 Blue rded SARS-CoV-2(COVID-19)mRNA-LNP vac([id number]) 05/27/23 Recorded [id number] 12y+ bivalent booster vax 05/03/22 Recorded SARS-CoV-2 [...] vac, H1N1, inactive(oldterm) 07/26/09 Given 1Result Comment: [facility] [id number] 2Admin Note: recombivax 40mcg given by Charisse Rolon RN 3Admin Note: recombivax 40mcg given by Charisse Rolon RN 4Admin Note: Recombivax 40mcg given by Charisse Rolon RN Medications acetaminophen 325 mg oral tablet 650 mg, 2, tablet, By Mouth, Every 4 hours, PRN, # 12 tablet, Refills 0, Maintenance, as needed forpain, 03/22/25 9:35:00 AM EDT, Partial fill upon patient request if the prescription is for a schedule II opioid drug. Start Date: 03/22/25 Status: Ordered Medication Dispense Status: Completed Quantity: 12.0 Unit: tablet Total Allowed Fills: 1 Fills Dispensed: 0 aspirin 81 mg oral tablet, chewable 81 mg, G Tube, Daily, Refills 0, Maintenance, 06/30/24 11:43:00 AM EST, Partial fill upon patient request if the prescription is for a schedule II opioid drug. Start Date: 06/30/24 Status: Ordered Medication Dispense Status: Completed Total Allowed Fills: 1 Fills Dispensed: 0 Ativan 0.5 mg oral tablet 1 tablet = 0.5 mg, By Mouth, Daily at bedtime, for 90 days, # 90 tablet, 0 Refills, Acute 05/16/25 2:16:00 PM EST, 02/15/25 2:16:00 PM EDT, Tablet, [facility], Partial fill upon patient request if the prescription is for a schedule II opioid drug., 169, cm, 02/15/25 14:01:00 EDT, Height, 61.5, kg, 02/10/25 12:45:00 EDT, Dry Weight Start Date: 02/15/25 Stop Date: 05/16/25 Status: Ordered Medication Dispense Status: Completed Quantity: 90.0 Unit: tablet Total Allowed Fills: 1 Fills Dispensed: 0 cholecalciferol 400 intl units oral capsule 400 Unknown, Oral, 0 Refill(s), Take 400 Units by mouth 1 (one) time each day, 0 Refills, 10/05/24 8:00:00 PM EDT, Partial fill upon patient request if the prescription is for a schedule II opioid drug. Start Date: 10/05/24 Status: Ordered Medication Dispense Status: Completed Total Allowed Fills: 1 Fills Dispensed: 0 DEXCOM G6 SENSOR MISC Miscellaneous DEXCOM G6 SENSOR MISC Miscellaneous, See Instructions, # 3 Unknown, 11 Refills, Maintenance, USE FOR CONTINUOUS GLUCOSE MONITORING. CHANGE EVERY 10 DAYS., 07/17/24 1:53:00 PM EST, 168, cm, 07/17/24 8:26:00 EST, Height, 71.3, kg, 07/09/24 18:31:00 EST, Dry Weight Start Date: 07/17/24 Status: Ordered Medication Dispense Status: Completed Quantity: 3.0 Unit: Unknown Total Allowed Fills: 1 Fills Dispensed: 0 Dexcom G7 Sensor Dexcom G7 Sensor, See Instructions, # 3 each, Refills 11, Tot. Refills 11, Maintenance, Use as directed for Diabetes Control. Change every 10 days E10.9, 04/20/25 8:01:00 AM EDT, Supply, 169, cm, 04/06/25 9:38:00 EDT, Height, 61.5, kg, 02/10/25 12:45:00 EDT, Dry Weight Start Date: 04/20/25 Status: Ordered Medication Dispense Status: Completed Quantity: 3.0 Unit: each Total Allowed Fills: 12 Fills Dispensed: 0 Disposable bed pads Disposable bed pads, See Instructions, # 60 each, Refills 11, Tot. Refills 11, Maintenance, 2 pads per day QUAN: lifetime Dx: R32, 01/01/25 2:42:00 PM EDT, Supply Start Date: 01/01/25 Status: Ordered Medication Dispense Status: Completed Quantity: 60.0 Unit: each Total Allowed Fills: 12 Fills Dispensed: 0 Indications: Unspecified urinary incontinence; Electric Hospital bed Electric Hospital bed, See Instructions, # 1 each, Refills 0, Tot. Refills 0, Maintenance, Ht: 170cm Wt: 65.7 kg QUAN: Lifetime Dx: R26.89; R32; I63.9, 01/01/25 2:45:00 PM EDT, Supply Start Date: 01/01/25 Status: Ordered Medication Dispense Status: Completed Quantity: 1.0 Unit: each Total Allowed Fills: 1 Fills Dispensed: 0 Indications: Unspecified urinary incontinence; Unsteadiness on feet; Osteoarthritis of knee, unspecified; Cerebral infarction, unspecified; Chronic kidney disease, unspecified; ferrous sulfate 325 mg oral enteric coated tablet 325 mg, 1, tablet, By Mouth, 2 times a day, # 180 tablet, Refills 0, Tot. Refills 0, Maintenance, 02/23/25 12:32:00 PM EDT, Route to Pharmacy Electronically, [facility], Partial fill upon patient request if the prescription is for a schedule II opioid drug., 169, cm, 02/15/25 14:01:00 EDT, Height, 61.5, kg, 02/10/25 12:45:00 EDT, Dry Weight Start Date: 02/23/25 Stop Date: 05/24/25 Status: Ordered Medication Dispense Status: Completed Quantity: 180.0 Unit: tablet Total Allowed Fills: 1 Fills Dispensed: 0 Gloves Gloves, See Instructions, # 4 pack/packet, Refills 11, Tot. Refills 11, Maintenance, Size Medium 4 boxes QUAN: Lifetime Dx: R32, 01/01/25 2:36:00 PM EDT, Supply Start Date: 01/01/25 Status: Ordered Medication Dispense Status: Completed Quantity: 4.0 Unit: pack/packet Total Allowed Fills: 12 Fills Dispensed: 0 Indications: Unspecified urinary incontinence; glucose 15 g/31 g oral gel 15g, By Mouth, Once, PRN hypoglycemia, 0 Refills, Maintenance, 07/29/24 10:34:00 AM EST, Partial fillupon patient request if the prescription is for a schedule II opioid drug. Start Date: 07/29/24 Status: Ordered Medication Dispense Status: Completed Total Allowed Fills: 1 Fills Dispensed: 0 Gvoke HypoPen 1 mg/0.2 mL subcutaneous solution 0.2 mL = 1 mg, Subcutaneous Injection, Once, For if patient is unconscious. to be given by family member. If this medication is used please call 911 after administering., # 0.2 mL, 2 Refills, Soft Stop, 11/14/23 8:54:00 AM EDT, Solution, [facility], Partial fill upon patient requestif the prescription is for a schedule II opioid drug., 168, cm, 11/12/23 9:54:00 EDT, Height, 78, kg, 03/01/23 12:35:00 EDT, Dry Weight Start Date: 11/14/23 Status: Ordered Medication Dispense Status: Completed Quantity: 0.2 Unit: mL Total Allowed Fills: 3 Fills Dispensed: 0 Insulin Aspart FlexPen 100 units/mL injectable solution See Instructions, up to 30 units daily as directed. E10.65, # 30 mL, 5 Refills, Maintenance, 04/01/25 11:23:00 AM EDT, [facility], Partial fill upon patient request if the prescription is for a schedule II opioid drug., 169, cm, 04/01/25 9:49:00 EDT, Height, 61.5, kg, 02/10/25 12:45:00 EDT, Dry Weight Start Date: 04/01/25 Status: Ordered Medication Dispense Status: Completed Quantity: 30.0 Unit: mL Total Allowed Fills: 6 Fills Dispensed: 0 Insulin Degludec FlexTouch 100 units/mL subcutaneous solution See Instructions, 24 units daily. E10.65, # 15 mL, 5 Refills, Maintenance, 04/01/25 11:24:00 AM EDT,[facility], Partial fill upon patient request if the prescription is for a schedule II opioid drug., 169, cm, 04/01/25 9:49:00 EDT, Height, 61.5, kg, 02/10/25 12:45:00 EDT, Dry Weight Start Date: 04/01/25 Status: Ordered Medication Dispense Status: Completed Quantity: 15.0 Unit: mL Total Allowed Fills: 6 Fills Dispensed: 0 Ketostix See Instructions, # 50 each, Refills 3, Tot. Refills 3, Maintenance, Use twice daily if glucose is over 400 or is consistently over 200., 04/01/25 10:59:00 AM EDT, Supply, 169, cm, 04/01/25 9:49:00 EDT, Height, 61.5, kg, 02/10/25 12:45:00 EDT, Dry Weight Start Date: 04/01/25 Stop Date: 03/27/26 Status: Ordered Medication Dispense Status: Completed Quantity: 50.0 Unit: each Total Allowed Fills: 4 Fills Dispensed: 0 lactobacillus acidophilus oral capsule 2 capsules, By Mouth, 2 times a day, 0 Refills, Maintenance, 07/28/24 2:43:00 AM EST, Partial fill upon patient request if the prescription is for a schedule II opioid drug. Start Date: 07/28/24 Status: Ordered Medication Dispense Status: Completed Total Allowed Fills: 1 Fills Dispensed: 0 Large briefs Large briefs, See Instructions, # 120 each, Refills 11, Tot. Refills 11, Maintenance, Size large; 4briefs per day QUAN:Lifetime Dx: R32; N18.9, 01/01/25 2:32:00 PM EDT, Supply Start Date: 01/01/25 Status: Ordered Medication Dispense Status: Completed Quantity: 120.0 Unit: each Total Allowed Fills: 12 Fills Dispensed: 0 Indications: Unspecified urinary incontinence; Chronic kidney disease, unspecified; Long grab bars Long grab bars, See Instructions, # 1 each, Refills 0, Tot. Refills 0, Maintenance, Dx: R26.89; I63.9, 01/01/25 2:10:00 PM EDT, Supply Start Date: 01/01/25 Status: Ordered Medication Dispense Status: Completed Quantity: 1.0 Unit: each Total Allowed Fills: 1 Fills Dispensed: 0 Indications: Unsteadiness on feet; Cerebral infarction, unspecified; LORazepam 0.5 mg oral tablet = 0.5 mg, G Tube, Daily at bedtime, Hold for lethargy, 0 Refills, Maintenance, 07/22/24 10:58:00 AM EST, Tablet, Partial fill upon patient request if the prescription is for a schedule II opioid drug. Start Date: 07/22/24 Status: Ordered Medication Dispense Status: Completed Total Allowed Fills: 1 Fills Dispensed: 0 Milk of Magnesia 8% oral suspension 30 mL = 2.4 Gm, By Mouth, Daily, PRN for constipation, for no BM in 3 days, 0 Refills, Maintenance,07/29/24 10:35:00 AM EST, Suspension, Partial fill upon patient request if the prescription is for a schedule II opioid drug. Start Date: 07/29/24 Status: Ordered Medication Dispense Status: Completed Total Allowed Fills: 1 Fills Dispensed: 0 MiraLax oral powder for reconstitution = 17 Gm, By Mouth, Daily, # 238 Gm, 0 Refills, Maintenance, 03/22/25 9:36:00 AM EDT, REC Powder, Partial fill upon patient request if the prescription is for a schedule II opioid drug. Start Date: 03/22/25 Status: Ordered Medication Dispense Status: Completed Quantity: 238.0 Unit: g Total Allowed Fills: 1 Fills Dispensed: 0 nystatin topical 025020 u/gm powder 1 application, Topically, 3 times a day, # 60 Gm, 6 Refills, Maintenance, 02/15/25 2:27:00 PM EDT, Powder, [facility], Partial fill upon patient request if the prescription is for a schedule II opioid drug., 1 application Topically 3 times a day, 169, cm, 02/15/25 14:01:00 EDT, Height, 61.5, kg, 02/10/25 12:45:00 EDT, Dry Weight Start Date: 02/15/25 Status: Ordered Medication Dispense Status: Completed Quantity: 60.0 Unit: g Total Allowed Fills: 7 Fills Dispensed: 0 ondansetron 4 mg oral tablet 1 tablet = 4 mg, By Mouth, Every 8 hours, # 90 tablet, 0 Refills, Maintenance, 11/06/24 12:18:00 PM EDT, [facility], Partial fill upon patient request if the prescription is for a schedule II opioid drug., 170, cm, 10/12/24 14:37:00 EDT, Height, 65.7, kg, 07/28/24 1:49:00 EST, Dry Weight Start Date: 11/06/24 Stop Date: 12/06/24 Status: Ordered Medication Dispense Status: Completed Quantity: 90.0 Unit: tablet Total Allowed Fills: 1 Fills Dispensed: 0 One Touch Delica Lancets See Instructions, # 100 each, Refills 6, Tot. Refills 6, Maintenance, Use to check Blood Glucose, 3times a day. E10.9, 04/09/25 8:04:00 AM EDT, Supply, 169, cm, 04/06/25 9:38:00 EDT, Height, 61.5, kg, 02/10/25 12:45:00 EDT, Dry Weight Start Date: 04/09/25 Status: Ordered Medication Dispense Status: Completed Quantity: 100.0 Unit: each Total Allowed Fills: 7 Fills Dispensed: 0 One Touch Ultra 2 Glucose Meter See Instructions, # 1 each, Refills 1, Tot. Refills 1, Maintenance, use to check Blood Glucose, 3 times a day. E10.9, 04/09/25 8:04:00 AM EDT, Supply, 169, cm, 04/06/25 9:38:00 EDT, Height, 61.5, kg,02/10/25 12:45:00 EDT, Dry Weight Start Date: 04/09/25 Stop Date: 06/08/25 Status: Ordered Medication Dispense Status: Completed Quantity: 1.0 Unit: each Total Allowed Fills: 2 Fills Dispensed: 0 One Touch Ultra Test Strips See Instructions, # 100 each, Refills 5, Tot. Refills 5, Maintenance, use to check Blood Glucose, 3times a day. E10.9, 04/09/25 8:04:00 AM EDT, Supply, 169, cm, 04/06/25 9:38:00 EDT, Height, 61.5, kg, 02/10/25 12:45:00 EDT, Dry Weight Start Date: 04/09/25 Stop Date: 10/06/25 Status: Ordered Medication Dispense Status: Completed Quantity: 100.0 Unit: each Total Allowed Fills: 6 Fills Dispensed: 0 pantoprazole 20 mg oral delayed release tablet 1 tablet = 20 mg, By Mouth, Daily in AM, 0 Refills, Maintenance, 06/03/24 9:18:00 PM EST, CR Tablet Start Date: 06/03/24 Status: Ordered Medication Dispense Status: Completed Total Allowed Fills: 1 Fills Dispensed: 0 Rollator walker Rollator walker, See Instructions, # 1 each, Refills 0, Tot. Refills 0, Maintenance, Wt: 65.7 Kg Ht: 170 cm QUAN: lifetime DX: R26.89; M17.9, 01/01/25 2:07:00 PM EDT, Supply Start Date: 01/01/25 Status: Ordered Medication Dispense Status: Completed Quantity: 1.0 Unit: each Total Allowed Fills: 1 Fills Dispensed: 0 Indications: Unsteadiness on feet; Osteoarthritis of knee, unspecified; rosuvastatin 40 mg oral tablet 1 tablet = 40 mg, By Mouth, Daily, 0 Refills, Maintenance, 06/03/24 9:25:00 PM EST, Partial fill upon patient request if the prescription is for a schedule II opioid drug. Start Date: 06/03/24 Status: Ordered Medication Dispense Status: Completed Total Allowed Fills: 1 Fills Dispensed: 0 sertraline 100 mg oral tablet 1 tablet = 100 mg, By Mouth, Daily in AM, Maintenance, 07/29/24 10:16:00 AM EST, Tablet, Partial fillupon patient request if the prescription is for a schedule II opioid drug. Start Date: 07/29/24 Status: Ordered Medication Dispense Status: Completed Total Allowed Fills: 1 Fills Dispensed: 0 tacrolimus 1 mg oral capsule = 2 mg, By Mouth, Every 12 hours, # 60 capsule, 0 Refills, Maintenance, 02/09/25 9:35:00 PM EDT, Capsule, Partial fill upon patient request if the prescription is for a schedule II opioid drug. Start Date: 02/09/25 Status: Ordered Medication Dispense Status: Completed Quantity: 60.0 Unit: capsule Total Allowed Fills: 1 Fills Dispensed: 0 tamsulosin 0.4 mg oral capsule 0.4 mg, 1, capsule, By Mouth, Daily, # 90 capsule, Refills 3, Tot. Refills 3, Maintenance, 11/19/24 2:25:00 PM EDT, Route to Pharmacy Electronically, [facility], Partial fill upon patient request if the prescription is for a schedule II opioid drug., 170, cm, 11/19/24 14:10:00 EDT, Height, 65.7, kg, 07/28/24 1:49:00 EST, Dry Weight Start Date: 11/19/24 Stop Date: 11/14/25 Status: Ordered Medication Dispense Status: Completed Quantity: 90.0 Unit: capsule Total Allowed Fills: 4 Fills Dispensed: 0 Tub transfer bench Tub transfer bench, See Instructions, # 1 each, Refills 0, Tot. Refills 0, Maintenance, DX: I63.9; G81.94, 11/30/24 10:34:00 AM EDT, Supply Start Date: 11/30/24 Status: Ordered Medication Dispense Status: Completed Quantity: 1.0 Unit: each Total Allowed Fills: 1 Fills Dispensed: 0 Indications: Hemiplegia, unspecified affecting left nondominant side; Cerebral infarction, unspecified; Wipes Wipes, See Instructions, # 8 pack/packet, Refills 11, Tot. Refills 11, Maintenance, 8 boxes QUAN: Lifetime Dx: R32; R39.0, 02/02/25 3:12:00 PM EDT, Supply Start Date: 02/02/25 Status: Ordered Medication Dispense Status: Completed Quantity: 8.0 Unit: pack/packet Total Allowed Fills: 12 Fills Dispensed: 0 Indications: Urinary tract infection, site not specified; Unspecified urinary incontinence; Problem List Condition Confirmation [...] Confirmed Active Gastrostomy tube dysfunction Confirmed Active Prostate CA Confirmed Active Obstructive sleep apnea Confirmed 03/30/21 Active Osteoarthritis of knee Confirmed Active Screening for condition Confirmed Active 1Per chart review meets GFR criteria 2Problem added by Discern Expert 3bILAT 2015 4campath induction Vital Signs Most recent to oldest [Reference Range]: 1 Blood Pressure [90-138/55-84 mm Hg] 141/ 59mm Hg 1 *H* (03/26/25 9:23 AM) 1Result Comment: Reported by [facility] Social History Social History Type Response Smoking Status Never smoker entered on: 04/12/14 Sexual Orientation Self described orien tation: ; Straight or heterosexual Sex Sex Representation Male (finding) Patient Care team information Care Team Personnel Name: Deirdre GONZALEZ, Marcy Position: [facility] RN Member Role: Primary Care Nurse Name: Nohelia GONZALEZ, Patience O Position: [facility] RN Member Role: Primary Care Nurse Name: Brittni Woods RN Position: [facility] AMB Nurse Member Role: Primary Care Nurse Name: Gildardo Shin RN Position: [facility] RN Member Role: Primary Care Nurse Name: Mayi Willard RN Position: [facility] RN Member Role: Primary Care Nurse Name: Daisy Palma RN Position: [facility] RN Member Role: Primary Care Nurse Name: Louise Palacios RN Position: [facility] RN Member Role: Primary Care Nurse Name: Renea Bustamante [place] Position: [facility] AMB [place] Member Role: Lifetime Consulting Physician Name: Francine Denney RN Position: [facility] OB RN Member Role: Primary Care Nurse Name: Zeinab Walker Position: [facility] Outreach Member Role: Lifetime Consulting Physician Name: Benja Deluca RN Position: [facility] RN Member Role: Primary Care Nurse Name: Hussein Gage LPN Position: [facility] RN Member Role: Primary Care Nurse Name: Mayi Adkins RN Position: [facility] RN Member Role: Primary Care Nurse Name: Pamela Zambrano RN Position: [facility] OB RN Member Role: Primary Care Nurse Name: Flower Noel RN Position: [facility] RN Member Role: Primary Care Nurse Name: Simon Ortega RN Position: [facility] RN Member Role: Primary Care Nurse Name: Peter Martins RN Position: [facility] Rad RN Member Role: Primary Care Nurse Name: Michelle Astorga NP Position: [facility] Associate Professional Member Role: Lifetime Consulting Provider Address: [address] [facility] [address] Telecom: Name: Jesus Ortega MD Position: [facility] Renal MD Member Role: Lifetime Consulting Physician Address: [address] [facility] [place] [address]- Telecom: Name: Lilly Alarcon Position: [facility] Outreach Member Role: Lifetime Consulting Physician Name: Giancarlo Collins RN Position: [facility] ED RN W/OE and Tasks Member Role: Primary Care Nurse Name: Starr Baron RN Position: [facility] RN Member Role: Primary Care Nurse Name: Kennedy Childs DO Position: [facility] Renal MD Member Role: Lifetime Consulting Physician Address: [address] [facility] [address] [facility] [place] [address]- Telecom: Name: Jose Alberto Bergeron RN Position: S RN Member Role: Primary Care Nurse Name: Emely Hurt RN Position: S RN Member Role: Primary Care Nurse Name: Tennille Linton NP Position: [facility] PCO Associate Professional Member Role: PCP Address: [address] [facility] 3rd Floor [facility] [place], [place] - Telecom: Name: Aline Luke RN Position: [facility] RN Member Role: Primary Care Nurse Name: Tracy Garnica RN Position: [facility] RN Member Role: Primary Care Nurse Name: Rashi Kaur RN Position: [facility] RN Member Role: Primary Care Nurse Name: Brady Copeland RN Position: [facility] RN Member Role: Primary Care Nurse Name: Gaurav Garcia RN Position: [facility] RN Member Role: Primary Care Nurse Name: Rene Ibanez RN Position: [facility] RN Member Role: Primary Care Nurse Name: Amol Hammond RN Position: [facility] RN Member Role: Primary Care Nurse Name: Meme Pat RN Position: [facility] RN Member Role: Primary Care Nurse Name: Aicha Cao RN Position: [facility] RN Member Role: Primary Care Nurse Name: Kathe Lynn RN Position: [facility] RN Member Role: Primary Care Nurse Name: Swapnil Bolanos MD Position: [facility] Renal MD Member Role: Lifetime Consulting Physician Address: [address] [place] [address] [facility] [place] [address]- [place] Telecom: Name: Lonnie David RN Position: [facility] RN Member Role: Primary Care Nurse Name: Carly Lopez RN Position: [facility] SN RN Member Role: Primary Care Nurse Name: Erica Arizmendi RN Position: [facility] RN Member Role: Primary Care Nurse Name: Reji Kan RN Position: S RN Member Role: Primary Care Nurse Name: Esequiel Lenz RN Position: [facility] RN Member Role: Primary Care Nurse Name: Ramila Perez RN Position: [facility] RN Member Role: Primary Care Nurse Name: Jean Marie Sweeney RN Position: S RN Member Role: Primary Care Nurse Name: Johnnie Moore RN Position: [facility] RN Member Role: Primary Care Nurse Name: Duglas Forrester MD Position: [facility] Renal MD Member Role: Lifetime Consulting Physician Address: [address] [place] [address] [address] [facility] [address] Telecom: Name: Renea Angel RN Position: [facility] RN Member Role: Primary Care Nurse Care Team Related Persons Name: TRISH AU Name: PATT BEEBE Name: MAYITO ROSA Insurance Providers Guarantor name: [facility] Information #: 1 Payer: [facility] Payer Identifier: SAMSON Member Number: [id number] Group Number: [id number] Subscriber Identifier: NA Relationship to Subscriber: self Coverage Type: Medicare Managed Care (Includes Medicare Advantage Plans) Coverage Verification Date: NA Telecom: NA Address:
[2025-04-30 10:29] LABS: MANUAL DIFF FLAG NO
[2025-04-30 10:52] LABS: Hematocrit 36.5 % (42.0-52.0); Hemoglobin 11.1 g/dl (14.0-18.0); Imm Gran Abs Auto 0.01 X10*3/uL (0.00-0.03); Imm Gran Pct Auto 0.1 % (0.0-0.4); Lymphocytes Absolute Auto 1.2 X10*3/uL (1.2-4.9); Mean Corpuscular HGB Conc 30.4 g/dl (31.0-36.0); Mean Corpuscular Hemoglobin 23.3 pg (27.0-33.0); Mean Corpuscular Volume 76.7 fL (80.0-98.0); NRBC Abs Auto 0.000 X10*3/uL (0.0-0.012); NRBC Pct Auto 0.0 /100WBC (0.0-0.2); Platelet Count 262 X10*3/uL (160-400); Red Blood Count 4.76 X10*6/uL (4.60-5.80); White Blood Count 7.0 X10*3/uL (4.8-10.8)
[2025-04-30 11:24] LABS: Parathyroid Hormone Intact 53.7 pg/mL (8.7-77.1)
[2025-04-30 11:29] LABS: Alanine Aminotransferase 8 U/L (0-40); Anion Gap 12 (12-20); Aspartate Amino Transferase 18 U/L (5-37); Blood Urea Nitrogen 31 mg/dL (9-16); Calcium 9.9 mg/dL (8.4-10.2); Carbon Dioxide 27 mmol/L (22-29); Chloride 106 mmol/L (96-108); Estimated Glomerular Filt Rate 46; Iron 28 mcg/dL (45-160); Percent Iron Saturation 12 % (15-50); Potassium 4.5 mmol/L (3.3-5.1); Sodium 140 mmol/L (135-145); Total Iron Binding Capacity 229 mcg/dL (228-428); Unsaturated Iron Binding 201 ug/dL
[2025-04-30 11:43] LABS: Ferritin 44 ng/mL (20-250)
--- OUTSIDE RECORDS SUMMARY | 2025-04-30 12:13 | XMS_ITS | Encounter Summary ---
Author Organization [facility] Address [address] [place] [address] Care Team Providers Care Strategy Execution Consultant Name Role Phone Elder, Michelle Alonso MD Primary Care Provider + Encounter Details Date Type Department Care Team (Late st Contact Info) Description 12/15/2024 Lab Requisition [facility] Lab [address] [facility] [employer] [address] Harshad Thornton, PA [address] [place], [place] [id number] Urinary tract infection, site not specified Social [...] Pseudomonas aeruginosa(A) YENNIFER 12/18/2024 10:25 AM EDT [facility] Comment: This [...] Pseudomonas aeruginosa Cefepime DISK DIFFUSION Susceptible [facility] MICROBIOLOGY - [facility] KEIRY LEACH Final Result [facility] [address] [place] [address], documented in this encounter Visit Diagnoses Diagnosis Urinary tract infection, site not specified documented in this encounter Additional Health Concerns Infection Onset Date Last Indicated Resolved Time MDRO (other) 12/15/2024 12/15/2024 documented as of this encounter Care Teams Strategy Execution Consultant Relationship Specialty Start Date End Date Michelle Rucker MD [address] [place] [id number] PCP - General Family Medicine 05/06/24 documented as of this encounter
--- OUTSIDE RECORDS SUMMARY | 2025-04-30 12:14 | XMS_ITS | Encounter Summary ---
Author Organization [facility] Address [address] [address] Phone Care Team Providers Care Continuous Mining Machine Lode Miner Name Role Phone Tennille Linton Sloane NATHAN Primary Care Provider + Reason for Visit * Reason Comments Med Refill Encounter Details Date Type Department Care Team (Late st Contact Info) Description 12/10/2022 Refill [facility] [place], [address] [place] [address] Andrey Phan MD [address] [place] [address] Social History Tobacco Use Types [...] Visit [facility] [place] [address] [place] [address] Andrey Phan MD [address] [place] [address] documented as of this encounter Visit Diagnoses Not on filedocumented in this encounter Care Teams Continuous Mining Machine Lode Miner Relationship Specialty Start Date End Date Tennille Linton NP [address] [place] [phone] PCP - General Nurse Practitioner 08/07/23 documented as of this encounter
--- OUTSIDE RECORDS SUMMARY | 2025-04-30 12:14 | XMS_ITS | Encounter Summary ---
Author Organization [facility] Address [address] [address] Phone Care Team Providers Care Spring Up Supervisor Name Role Phone Tennille Linton Sloane NATHAN Primary Care Provider + Reason for Visit * Reason Comments Med Refill Encounter Details Date Type Department Care Team (Late st Contact Info) Description 12/04/2022 Refill [facility] [place], [address] [place] [address] Andrey Phan MD [address] [facility] [place] [address] Social History Tobacco Use Types [...] Visit [facility] [place] [address] [place] [address] Andrey Phan MD [address] [place] [address] documented as of this encounter Visit Diagnoses Not on filedocumented in this encounter Care Teams Spring Up Supervisor Relationship Specialty Start Date End Date Tennille Linton NP [address] [place] [phone] PCP - General Nurse Practitioner 08/07/23 documented as of this encounter
--- OUTSIDE RECORDS SUMMARY | 2025-04-30 12:14 | XMS_ITS | Encounter Summary ---
Author Organization [facility] [place], Address [address] [address] Phone Care Team Providers Care Rn Managed Care Name Role Phone [place], Tennille Sloane NATHAN Primary Care Provider + Reason for Visit * Reason Comments Med Refill Encounter Details Date Type Department Care Team (Late st Contact Info) Description 08/13/2022 Refill [facility] [address] [place] [address] Andrey Phan MD [address] [place] [address] [place] [address] Social History Tobacco Use Types [...] Visit [facility] [address] [place] [phone] Andrey Phan MD [address] [place] [address] [place] [address] documented as of this encounter Visit Diagnoses Not on filedocumented in this encounter Care Teams Rn Managed Care Relationship Specialty Start Date End Date Tennille Linton NP [address] [place] [phone] PCP - General Nurse Practitioner 08/07/23 documented as of this encounter
--- OUTSIDE RECORDS SUMMARY | 2025-04-30 12:14 | XMS_ITS | Data Portability ---
Author Organization [employer] [facility] Address [address] [place] [address] Care Team Providers Care Student Loan Counselor Name Role Phone GERARDO RHOADES Primary Care Provider [phone] HIM CCA OTHER Assessment Encounter Date Assessment Date Assessment LastModified by Organization Details LastModified Time 01/01/2025 01/01/2025 I provided real -time medical direction via phone for this encounter and was available for additional phone-based assistance as needed. I have reviewed and agree with the Assessment and Plan as documented by the Rand Cementer. Patient given the opportunity to ask questions. [...] and awaiting call back for treatment Per career technical education teacher on the scene, Vital signs are stable [...] normal limits exam is otherwise unremarkable per career technical education teacher. Straight catherization was performed which per career technical education teacher was challenging and a large clot was [...] for patient's primary physicians to followup on. [facility] had recommended repeat urine culture. [...] of any new or worsening serious symptoms [email or web address] Not available 02/01/2025 13:36:35 02/09/2025 02/09/2025 As noted, we wer e called to see this patient regarding concerns of right upper quadrant pain. Evaluation in the field was performed by my career technical education teacher colleague, as noted above, I provided real-time direction and supervision for this visit. The evaluation revealed Pt is a 69 y/o male with a past medical hx of Organ Transplant, Hypertension, Diabetes Mellitus Type 2, Hyperlipidemia, Stroke, Cancer Who presents with right upper quadrant abdominal pain. On exam done by the career technical education teacher, the patient has normal vital signs. He also has some right flank pain. He is tender to palpation to the right upper quadrant and the right flank. On the exam done by the career technical education teacher, he still has his gallbladder. The patient has a complicated medical history. He also could have a pyleonephritis going on. He did have some leukocytes in his urinalysis. We will go ahead and send him to the ER at [facility]. I called an expect report. Impression: right upper quadrant pain Plan: 1) sent to the Er for eval 2) UA shows leukocytes and BMP no abnormalities Primary care, consider f/u er visit Disposition: to the Er at [facility]. I called a report We discussed the situation and I recommended referral to the emergency department. This was based on abdominal pain [email or web address] Not available 02/09/2025 11:35:16 Plan of Treatment Reminders Order Date Submit Date Provider Last Modified By Organization Details Last Modified Time Details Appointments None recorded. Lab urinalysis, dipstick 2024 025 [facility], [address] [place] [address], [id number] 12:24:39 BMP, serum or plasma 2024 025 [facility], [address] [place] [address], [id number] 12:25:00 BMP, serum or plasma 2024 [facility], [address] [place] [address], [id number] 13:02:42 hemoglobin + hematocrit, blood 2024 [facility], [address] [place] [address], [id number] 13:02:25 culture, urine 2024 [facility] (Centralized Electronic Ordering - All Locations), Patient Can Go To The Location Of Their Choice, [id number] 18:05:43 urinalysis, dipstick 2024 [facility], [address] [place] [address], [id number] 17:03:48 Referral None recorded. Procedures catheteriza tion straight - procedure (PROC) 2024 025 Not available 15:27:40 catheteriza tion, aguero (PROC) 2024 025 Not available 16:20:11 Surgeries None recorded. Imaging None recorded. Medication Orders ondansetron HCl (PF) 4 mg/2 mL injection solution 2024 rsullivan 89 [facility], [address] [place] [address], [address], 12:25:34 sodium chloride 0.9 % intravenous solution 2024 025 rsullivan 89 [facility], [address] [place], [address], 5 12:25:35 ondansetron 4 mg disintegrat ing tablet 2024 025 [facility], [address] [place], [address], 5 15:04:48 Patient TargetsNo targets recorded. Patient InstructionsNo instructions recorded. Reason for Referral None Reported. Results Created Date Observation Date Name Description Value Unit Range Abnormal Flag Note LastModifiedBy Organization Detail LastModifiedTime 02/02/2002/03/2025 URINE CULTU RE, UROLO GY MARIAH P urine culture, urology workup Final report Not Available [facility] ([facility]) [address] [place], [address], 02/03/2025 18:05:43 02/02/2002/03/2025 URINE CULTU RE, UROLO GY MARIAH P result 1 COMMEN T Mixed uroge nital robyn 10,00 0-25, 000 colon y formi ng units per mL Not Available [facility] ([facility]) [address] [place], [address], 02/03/2025 18:05:43 Result Notes None recorded. Medical Equipment None Reported. Allergies Allergen ID Allergen Name Allergen Category Reaction Reaction Severity Criticality Documentation Date Start Date Code Code System Note Provider Name and Address Organization Details Recorded Time 04660 Dilaudid medicatio n Not available Not available Not available 11/30/2024 74709 3 RxNorm Not Available [facility] - production 5 08:15:01 16630 oxycodone medicatio n Not available Not available Not available 11/30/2024 7804 RxNorm Not Available [facility] - production 5 08:15:01 13383 acetamino phen / oxycodone medicatio n Not available Not available Not available 11/30/2024 45641 3 RxNorm Not Available [facility] - production [...] /min 170.18 cm 96 % 96 % 45541.8 g 96.5 [degF] 140/72 mm[Hg] Not Available [facility] 5 15:50:33 Date Recorded Oxygen saturation Oxygen saturation in Arterial blood by Pulse oximetry Heart rate Respiratory rate Body temperature Systolic And Diastolic Provider Name and Address Organization Details Last Updated DateTime 5 98 % 98 % 90 /min 18 /min 99.6 [degF] 137/69 mm[Hg] Not Available [facility] 5 15:30:43 Date Recorded Respiratory rate Oxygen saturation Oxygen saturation in Arterial blood by Pulse oximetry Body temperature Heart rate Systolic And Diastolic Provider Name and Address Organization Details Last Updated DateTime 5 18 /min 98 % 98 % 98.8 [degF] 84 /min 116/72 mm[Hg] Not Available [facility] 15:26:18 Date Recorded Heart rate Oxygen saturation Oxygen saturation in Arterial blood by Pulse oximetry Body weight Respiratory rate Body height Body temperature Systolic And Diastolic Provider Name and Address Organization Details Last Updated DateTime 5 98 /min 97 % 97 % 19875.9 2 g 19 /min 167.64 cm 100 [degF] 138/68 mm[Hg] Not Available [facility] production 12:14:58 Date Recorded Respiratory rate Body height Oxygen saturation Oxygen saturation in Arterial blood by Pulse oximetry Heart rate Body weight Body temperature Systolic And Diastolic Provider Name and Address Organization Details Last Updated DateTime 5 18 /min 170.18 cm 96 % 96 % 82 /min 92122.9 2 g 97.9 [degF] 139/67 mm[Hg] Not Available [facility] production 11:16:46 Social History None recorded. Functional Status None recorded. Mental Status None recorded. Family History Nothing Reported. Medical History No medical history recorded. Past Encounters Encounter ID Performer Location Encounter Start Date Encounter Closed Date Diagnosis/Indication Diagnosis SNOMED-CT Code Diagnosis ICD10 Code Diagnosis IMO Codes Diagnosis Note [id number] Debi Reddy MD [address] [address] 11/30/2024 09:06:06 11/30/2024 20:31:14 Nausea and vomiting 80318016 R11.2 [id number] Disorder o f urinary system 463702521 R39.89 [id number] MASSIMO LAMAS MD [address] [address] 12/07/2024 15:01:14 12/07/2024 19:55:13 Acute retention of urine 739262146 R33.8 [id number] Debi Reddy MD [address] [address] 01/01/2025 15:50:29 01/01/2025 18:07:15 Urinary system finding 863742893 R39.9 [id number] CHANEL OSUNA MD [address] [address] 01/08/2025 15:24:39 01/08/2025 23:35:51 Urinary system finding 349841934 R39.9 [id number] Evaluation in the field was performed by my career technical education teacher colleague, as noted above, I provided real-time [...] sometimes inappropri ately, per both family and career technical education teacher. Family reports this is a significan t [...] management . An expect was called at [facility] ED Primary care, consider__ _ Dispositio n: We discussed the situation and I recommende d referral to the emergency department . [id number] MASSIMO LAMAS MD [facility] [address] [address] 01/13/2025 15:26:14 01/13/2025 18:35:45 Urinary system finding 234149212 R39.9 [id number] Aamir Martinez MD [address] [address] 02/01/2025 12:14:51 02/01/2025 13:41:11 Nausea and vomiting 65650995 R11.2 [id number] ROCCO POWERS MD [address] [address] 02/09/2025 11:16:36 02/09/2025 20:29:17 Right upper quadrant pain 161659338 R10.11 [id number] Health Concerns Section Related Observation LastModified by Organization Detai ls LastModified Time None Recorded Concern Status LastModified by Organization Details LastModified Time None Recorded Advance Directives Directive None Recorded Payers Insurance Date Sequence Insurance Name Policy Number Policy Hood Covered Member ID Hood Member ID Guarantor Name 02/09/2025 1 [facility] - DOS ON OR AFTER 2022 - DUAL ELIGIBLE - [employer] OPTIONS AND ONE CARE (MEDICARE REPLACEMENT/ADV ANTAGE - HMO) Harvey Law [id number] Harvey Law Notes Date Note Type Note [...] has increased fluid intake and urine is semiconductor testing group leader today. Patient has a catheter for urinary. Has an appt at the end of the month to trial removing catheter. I provided information on the mobile health provider response time and advised the patient and/or caregiver to monitor reported signs and symptoms. I discussed the warning signs of when to seek emergency care. Rand Cementer Organization Information for Raleigh [employer] Legal Name: [facility] Address: [address] [place] [address], [place] [address], Per Diem Clerk: Farshad Puckett MD [facility] No.: [id number] Rand Cementer POC Test Results from Raleigh Garnica Urine Dipstick (16:03:01) Urine leukocytes: plus 2 SJ Urine nitrites: neg NIT Urine urobilinogen: neg URO Urine protein: neg PRO Urine pH: 7.5 pH Urine blood: trace BLO Urine specific gravity: 1.020 SG Urine ketones: neg KET Urine bilirubin: neg NAGA Urine glucose: neg GLU ........................ ........................ ........................ ........................ ........................ ..................... Rand Cementer Note From Garnica Raleigh: 69 year-old male [...] for the visit. Patient in no distress. [facility] Lab Orders: urinalysis, dipstick: Performed ........................ ........................ ........................ ........................ ........................ ..................... [facility] Consulted: Debi Reddy ........................ ........................ ........................ ........................ ........................ ..................... Disposition: Fulfilled Debi Reddy MD [address] [place] [address],[address], [place], [phone], [employer] 01/01/2025 17:03:04 5 text/html ROS as noted in the [facility] Nurse Triage Notes (Erasmo Gonzalez): Reason [...] patient has hx of chronic UTI. Patient's polygraph operator ordered a week of Levofloxacin and patient's symptoms have been waxing and waning. Sister reports patient is intermittently confused. Patient's sister called polygraph operator office to review symptoms and they ordered [...] RN ........................ ........................ ........................ ........................ ........................ ..................... Rand Cementer Note From Harley Sifuentes: Pt seen for [...] LS clear. Due to concern of sepsis [facility] contacted and advised of Pt presentation, history and exam findings. [facility] request Pt be sent to ED for sepsis rule out and appropriate treatment. Family advised of [facility] recommendation, agreeable to it. Pt to be transported to [facility], [facility] made aware. EMS called via 911. Pt care and report turned over to [facility], call closed. ........................ ........................ ........................ ........................ ........................ ..................... [facility] Consulted: Chanel Osuna ........................ ........................ ........................ ........................ ........................ ..................... Disposition: Fulfilled CHANEL OSUNA MD [address] [facility],[address], [place], [phone], VICKY - [employer] 01/08/2025 19:59:06 5 text/html ROS as noted in the [facility] Nurse Triage Notes (Ksenia Crain): Denies: [...] care. ........................ ........................ ........................ ........................ ........................ ..................... Rand Cementer Note From Darrion Malik: Encountered patient supine [...] non-distended. Extremities free of trauma and edema. [facility] contacted: initial attempt with company provided 12F unsuccessful; after speaking with family, they advised this food writer that patients urologist recommends replacing a aguero catheter in favor of multiple straight catheterizations per day, if family was unsuccessful or found difficulty with the straight catheterization. 16F aguero catheter placed, clear yellow urine noted in reservoir; picture of reservoir uploaded via [employer]. Sterile technique and gloves were utilized during [...] tomorrow. ........................ ........................ ........................ ........................ ........................ ..................... [facility] Consulted: Massimo Lamas ........................ ........................ ........................ ........................ ........................ ..................... Disposition: Fulfilled MASSIMO LAMAS MD [address] [place] [address],[address], [place], [phone] [employer] 01/13/2025 18:20:01 5 text/html ROS as noted [...] signs of when to seek emergency care. Rand Cementer Organization Information for Maggie Leggett [employer] Legal Name: [facility] Address: [address] [place] [address], [place] [address], Per Diem Clerk: Farshad Puckett MD CLIA No.: [id number] Rand Cementer POC Test Results from Maggie Leggett [employer] (12:07:14) pH: 7.540pH units pCO2: 26.2mmHg pO2: 65.0mmHg Na: 133mmol/L K: 4.8mmol/L iCa: 1.08mmol/L Cl: 100mmol/L TCO2: 21.0mEq/L Hct: 30% Hb: 10.3g/dL Glu: 194mg/dL Lac: 1.12mmol/L Cr: 1.33mg/dL BUN: 19mg/dL Ammol/L HCO3: 22.4mmol/L Attachments uploaded as part of this test result can be found under Documents section. ........................ ........................ ........................ ........................ ........................ ..................... Rand Cementer Note From Maggie Leggett: Pt chief complaint [...] culture acquired for send out to [facility]. [facility] Aamir Martinez consulted. Pt informed of findings. [...] immediately call emergency services if any present. [facility] Lab Orders: BMP, serum or plasma: Performed hemoglobin + hematocrit, blood: Performed culture, urine: Performed [facility] Medication Orders: ondansetron HCl (PF) 4 mg/2 mL injection solution: Performed sodium chloride 0.9 % intravenous solution: Performed ........................ ........................ ........................ ........................ ........................ ..................... [facility] Consulted: Aamir Martinez ........................ ........................ ........................ ........................ ........................ ..................... Disposition: Fulfilled Aamir Martinez MD [address] [place] [address],[address], [place], [phone], [employer] 02/01/2025 13:36:43 5 text/html ROS as noted in the [facility] Nurse Triage Notes (Roxana Montoya): Reason [...] signs of when to seek emergency care. Rand Cementer Organization Information for Anthony Alan Jerry Bradley Legal Name: [employer] A ddress: [address] [place] [id number], USMedical Director: Jerad Barney [facility] No.: [id number] Rand Cementer POC Test Results from Dayanna Elenasonido VALDOVINOS Urine Dipstick (10:57:18)Urine leukocytes: 125++LEUUrine nitrites: -NITUrine urobilinogen: 0.2UROUrine protein: 30PROUrine pH: 6.5pHUrine blood: 50BLOUrine specific gravity: 1.015SGUrine ketones: 5KETUrine bilirubin: -BILUrine glucose: -GLU iSTAT Chem8+ (11:11:56)Na: 136mEq/LK: 4.8mEq/LCl: 99mEq/LiCa: 1.28mmol/LTCO2: 25mmol/LGlu: 191mg/dLBUN: 28mg/dLCrea: 1.2mg/dLHct: 32%Hb: 10.9g/dLAmmol/LCartridge Number: [id number] ........................ ........................ ........................ ........................ ........................ ..................... Rand Cementer Note From Anthony Alan: SC6 responds to the listed address for a 69 yom w/ a c/c of RUQ pain since this morning. Upon arrival, sister opens the door for [facility] and pt is found conscious and [...] his Aguero was replaced in the ED b55hkwe ago. She says he has had really good urinary output and no black or bloody stools or urine are reported. Recent testing for MRSA infection. [facility] obtains vital signs and pt is [...] bandage is applied w/ 2x2 and tape. [facility] contacts [facility] and discusses the above. [facility] recommends transport to the ED for abdominal imaging to r/o cholecystitis. Pt and sister are amendable. Pt is transported to [facility] by [facility]. MIH is clear. Report completed by EDIL Alan [id number]. [facility] Lab Orders: urinalysis, dipstick: Performed BMP, serum or plasma: Performed ........................ ........................ ........................ ........................ ........................ ..................... [facility] Consulted: Rocco Powers...................... ........................ ........................ ........................ ........................ ..................... Disposition: Fulfilled ROCCO POWERS MD [address] [facility],[address], [place], [address], VICKY - TERIR LEIWS 02/09/2025 12:22:12
--- OUTSIDE RECORDS SUMMARY | 2025-04-30 12:14 | XMS_ITS | Encounter Summary ---
Author Organization [facility] Address [address] [address] Phone Care Team Providers Care Food Handler Name Role Phone Tennille Linton NP Primary Care Provider + Encounter Details Date Type Department Care Team (Late st Contact Info) Description 10/06/2024 Documentation Only [facility] [place], [address] [address] [place] [address] [place] [phone] Social History Tobacco Use Types Packs/Day [...] Visit [facility] [place] [address] [place] [address] Andrey Phan MD [address] [facility] [place] [address] documented as of this encounter Visit Diagnoses Not on filedocumented in this encounter Care Teams Food Handler Relationship Specialty Start Date End Date Tennille Linton NP [address] [place] [phone] PCP - General Nurse Practitioner 08/07/23 documented as of this encounter
--- OUTSIDE RECORDS SUMMARY | 2025-04-30 12:14 | XMS_ITS | Encounter Summary ---
Author Organization [facility] [place], Address [address] [address] Phone Care Team Providers Care Metal Fabricating Shop Helper Name Role Phone Simpson, Tennille Sloane NATHAN Primary Care Provider + Reason for Visit * Reason Comments Med Refill Encounter Details Date Type Department Care Team (Late st Contact Info) Description 09/10/2022 Refill [facility] [address] [place] [address] Andrey Phan MD [address] [place] [address] [place] [address] Social History Tobacco Use Types [...] Visit [facility] [address] [place] [phone] Andrey Phan MD [address] [place] [address] [place] [address] documented as of this encounter Visit Diagnoses Not on filedocumented in this encounter Care Teams Metal Fabricating Shop Helper Relationship Specialty Start Date End Date Tennille Linton NP [address] [place] [phone] PCP - General Nurse Practitioner 08/07/23 documented as of this encounter
--- OUTSIDE RECORDS SUMMARY | 2025-04-30 12:14 | XMS_ITS | Encounter Summary ---
Author Organization [facility] Address [address] [address] Phone Care Team Providers Care Acls Nurse Name Role Phone Tennille Linton Sloane NATHAN Primary Care Provider + Reason for Visit * Reason Comments Med Refill Encounter Details Date Type Department Care Team (Late st Contact Info) Description 06/08/2022 Refill [facility] [place], [address] [address] [place] [address] Andrey Phan MD [address] [facility] [place] [address] Social History Tobacco Use Types [...] Visit [facility] [place] [address] [place] [phone] Andrey Phan MD [address] [facility] [place] [address] documented as of this encounter Visit Diagnoses Not on filedocumented in this encounter Care Teams Acls Nurse Relationship Specialty Start Date End Date Tennille Linton NP [address] [place] [phone] PCP - General Nurse Practitioner 08/07/23 documented as of this encounter
--- OUTSIDE RECORDS SUMMARY | 2025-04-30 12:14 | XMS_ITS | Encounter Summary ---
Author Organization [facility] [place], Address [address] [place] [address] Phone Care Team Providers Care Fund Raiser Name Role Phone Tennille Linton Sloane NATHAN Primary Care Provider + Reason for Visit * Reason Comments Med Refill Encounter Details Date Type Department Care Team (Late st Contact Info) Description 04/24/2023 Refill [facility] [place], [address] [facility] [address] [place] [address] Denise Isbell PA [address] [place] [phone] Social History Tobacco Use Types Packs/Day Years [...] Visit [facility] [place] [address] [place] [phone] Andrey Phan MD [address] [facility] [place] [address] documented as of this encounter Visit Diagnoses Not on filedocumented in this encounter Care Teams Fund Raiser Relationship Specialty Start Date End Date Tennille Linton NP [address] [place] [phone] PCP - General Nurse Practitioner 08/07/23 documented as of this encounter
--- OUTSIDE RECORDS SUMMARY | 2025-04-30 12:14 | XMS_ITS | Encounter Summary ---
Author Organization [facility] [place], Address [address] [address] Phone Care Team Providers Care Driver Lifter Of Sanitation Truck Name Role Phone [place], Tennille Sloane NATHAN Primary Care Provider + Reason for Visit * Reason Comments Med Refill Encounter Details Date Type Department Care Team (Late st Contact Info) Description 07/23/2022 Refill [facility] [address] [place] [address] Andrey Phan MD [address] [place] [address] [place] [address] Social History Tobacco Use Types [...] [facility] [address] [place] [phone] Andrey Phan MD [address] [place] [address] [place] [address] documented as of this encounter Visit Diagnoses Not on filedocumented in this encounter Care Teams Driver Lifter Of Sanitation Truck Relationship Specialty Start Date End Date Tennille Linton NP [address] [place] [phone] PCP - General Nurse Practitioner 08/07/23 documented as of this encounter
--- OUTSIDE RECORDS SUMMARY | 2025-04-30 12:14 | XMS_ITS | Encounter Summary ---
Author Organization [facility] Address [address] [address] Phone Care Team Providers Care Shot Bagger Name Role Phone Tennille Linton NP Primary Care Provider + Encounter Details Date Type Department Care Team (Late st Contact Info) Description 06/04/2024 Documentation Only [facility] [place], [address] [facility] [place] [address] [place] [address] [place] [phone] Social History Tobacco Use Types Packs/Day [...] Visit [facility] [place] [address] [facility] [place] [place] [address] Andrey Phan MD [address] [facility] [place] [address] documented as of this encounter Visit Diagnoses Not on filedocumented in this encounter Care Teams Shot Bagger Relationship Specialty Start Date End Date Tennille Linton NP [address] [place] [phone] PCP - General Nurse Practitioner 08/07/23 documented as of this encounter
--- OUTSIDE RECORDS SUMMARY | 2025-04-30 12:14 | XMS_ITS | Encounter Summary ---
Author Organization [facility] Address [address] [address] Phone Care Team Providers Care Partner Integration Planner Name Role Phone Tennille Linton NP Primary Care Provider + Encounter Details Date Type Department Care Team (Late st Contact Info) Description 10/29/2024 Documentation Only [facility] [place], [address] [place] [address] [place] [address] [place] [phone] Social History Tobacco Use Types Packs/Day [...] Visit [facility] [place] [address] [place] [address] Andrey Phan MD [address] [facility] [place] [address] documented as of this encounter Visit Diagnoses Not on filedocumented in this encounter Care Teams Partner Integration Planner Relationship Specialty Start Date End Date Tennille Linton NP [address] [place] [phone] PCP - General Nurse Practitioner 08/07/23 documented as of this encounter
--- OUTSIDE RECORDS SUMMARY | 2025-04-30 12:14 | XMS_ITS | Encounter Summary ---
Author Organization [facility] [place], Address [address] [address] Phone Care Team Providers Care Local Company Refrigerated Truck Driver Name Role Phone [place] PlainTennille cantor Sloane NATHAN Primary Care Provider + Reason for Visit * Reason Comments Med Refill Encounter Details Date Type Department Care Team (Late st Contact Info) Description 07/23/2022 Refill [facility] [address] [place] [address] Denise Isbell PA [address] [place] [address] [place] [address] Social History Tobacco Use Types [...] Visit [facility] [place] [address] [facility] [address] [place] [phone] Andrey Phan MD [address] [place] [address] [place] [phone] documented as of this encounter Visit Diagnoses Not on filedocumented in this encounter Care Teams Local Company Refrigerated Truck Driver Relationship Specialty Start Date End Date Tennille Linton NP [address] [place] [phone] PCP - General Nurse Practitioner 08/07/23 documented as of this encounter
--- OUTSIDE RECORDS SUMMARY | 2025-04-30 12:14 | XMS_ITS | Encounter Summary ---
Author Organization [facility] Address [address] [place] [address] [place] [phone] Phone Care Team Providers Care Oracle Hrms Developer Name Role Phone Tennille Linton NP Primary Care Provider + Anni Quiñonez PA Unavailable [phone] Encounter Details Date Type Department Care Team (Late st Contact Info) Description 02/28/2024 Procedure Pass [facility] [address] [place] [address] Social History Tobacco Use Types Packs/Day Years [...] Care Team (Late st Contact Info) Description 05/18/2025 1:00 PM EST Office Visit [facility] [address] [facility] [address] [place] [address] Daisy Diaz MD, MPH [address] [facility] [address] [place] [address] [email or web address] Scheduled Procedures Name Priority Associated Diagnoses Date/Ti me ROBOTIC LAPAROSCOPIC PROSTAT ECTOMY RADICAL Malignant neoplasm of prostate documented as of this encounter Visit Diagnoses Not on filedocumented in this encounter Care Teams Oracle Hrms Developer Relationship Specialty Start Date End Date Tennille Linton NP [address] [place] [phone] PCP - General Nurse Practitioner 08/30/23 Anni Quiñonez PA [address] [place] [address] [address] [place] [address] [email or web address] Physician Researcher 08/30/23 shana myers [facility] Loom Changer Cardiology 03/12/24 documented as of this encounter Additional Source Comments The information contained in this document represents components of the legal health record. It is not the complete legal health record.[facility]
--- OUTSIDE RECORDS SUMMARY | 2025-04-30 12:14 | XMS_ITS | Encounter Summary ---
Author Organization [facility] Address [address] [address] Phone Care Team Providers Care House Decorator Name Role Phone Tennille Linton NP Primary Care Provider + Encounter Details Date Type Department Care Team (Late st Contact Info) Description 04/21/2024 Documentation Only [facility] [place], [address] [facility] [place] [address] [place] [address] [place] [phone] Social History Tobacco Use Types Packs/Day [...] Visit [facility] [place] [address] [facility] [place] [address] Andrey Phan MD [address] [facility] [place] [address] documented as of this encounter Visit Diagnoses Not on filedocumented in this encounter Care Teams House Decorator Relationship Specialty Start Date End Date Tennille Linton NP [address] [place] [phone] PCP - General Nurse Practitioner 08/07/23 documented as of this encounter
--- OUTSIDE RECORDS SUMMARY | 2025-04-30 12:14 | XMS_ITS | Clinical Summary ---
Author Organization [facility] Address [address] [place] [phone] Phone Care Team Providers Care Tape Sewer Name Role Phone Tennille Linton NP Primary Care Provider + Anni Quiñonez PA Unavailable [phone] Allergies Active Allergy Reactions Criticality Noted Date [...] Take 81 mg by mouth daily. Active levoFLOXacin (LEVAQUIN) 500 MG tablet Take 1 tablet (500 mg total) by mouth daily. Start three days prior to surgery 7 tablet 3 5 Active levoFLOXacin (LEVAQUIN) 500 MG tabletIndicatio ns:Urinary tract infection associated with indwelling urethral catheter, subsequent encounter Take 1 tablet (500 mg total) by mouth daily. 7 tablet 1 5 04/23/20 25 Discontinu ed(Error) Active Problems Problem Noted Date Diagnosed Date Malignant neoplasm of prostate 03/02/2025 Assessment & Plan (04/23/2025 6:17 AM EDT): Assessment: Harvey Law is a 69 y.o. 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 He has a recent diagnosis of pT1b prostate cancer which is Centenary score 3+4=7 (or possibly Andry score 3+3=6 based on internal review). He has significantly diminished performance status due to a multitude of infections over the past year. In February 2025, the PSA was 0.41 ng/mL. And, a MRI prostate showed a right- sided PI-RADS 4 lesion and no concern for extraprostatic disease though there is possible locally advanced disease involving the right seminal vesicle. We discussed the next steps in management including a targeted prostate needle biopsy versus definitive management with surgery or radiation therapy. I explained that the benefit of a biopsy is to clarify the grade of the underlying disease which may impact the option for active surveillance or the duration of hormone therapy in the event of radiation therapy. However, Mr. Law is primarily interested in surgery not only because he is immunosuppressed due to renal transplantation as well as the fact that prostatectomy arguably gives him the best chance of becoming catheter free in the future though this is certainly not a guarantee. I agree with this rationale. We reviewed the surgical principles of a radical prostatectomy as well as the adverse effects including post-prostatectomy urinary incontinence and erectile dysfunction. Given the baseline urinary retention, I stressed that there remains a probability that there may still be dependency on a catheter in the future as we currently do not know his bladder function and there is a real possibility that he has a neurogenic bladder as his urinary retention was not resolved with the recent TURP. We discussed the risks of the procedures including bleeding, infection, injury to surrounding organs and bowel, post-surgical incontinence, post-surgical erectile dysfunction, deep venous thromboses, pulmonary emboli, stroke, heart attack, and loss of life. I suspect that Mr. Law's lower urinary tract is colonized with bacteria as he is current dependent on a catheter and stated that there is an elevated risk for postoperative infection; I have recommend initiating PO antibiotics preoperative and staying in the hospital for at least overnight to receive IV antibiotics. We spoke at length regarding postoperative expectations including a likely 6-week or longer recovery process given Mr. Law's medical comorbidities. Overall, I feel that Mr. Law is an appropriate candidate for surgery and I have preferentially offered him a robotic radical prostatectomy for management. Plan: A robotic radical prostatectomy will be scheduled on the next available date. I have sent a prescription for Levaquin to Mr. Law's pharmacy to start three days prior to surgery. Assessment & Plan (03/03/2025 7:42 AM EDT): Assessment: Harvey Law is a 69 y.o. 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 He has a recent diagnosis of pT1b prostate cancer which is Centenary score 3+4=7 (or possibly Centenary score 3+3=6 based on internal review). 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 Urology [address] [place] [phone] Bartolome Sandy MD Malignant neoplasm of prostate (Primary Dx) 04/22/2025 7:[address] 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 Anatomic Pathology [address] [place] [address] Discharge Disposition: Home or Self Care 03/23/2025 1:30 PM EDT Office Visit [facility] [address] [place] [address] Daisy Sherwood MD, MPH Skin lesion (Primary Dx); Squamous cell carcinoma of back 03/02/2025 3:45 PM EDT Office Visit [facility], [address], [address] [place] [address] Raleigh Arellano MD Malignant neoplasm of prostate (Primary Dx) 03/02/2025 2:00 PM EDT Office Visit [facility], [address], [address] [place] [address] Amauri Rizo MD, PAULA Prostate cancer (Primary Dx) 03/02/2025 1:00 PM EDT Office Visit [facility] Oncology, [address], [address] [place] [address] Bartolome Sandy MD Prostate cancer (Primary Dx); Malignant neoplasm of prostate 03/02/2025 12:30 PM EDT Infusion [facility] [address], [address], [place] [address] Bartolome Sandy MD Billings, Elizabeth, RN Prostate cancer 03/02/2025 Procedure Pass [facility] [address] [address] from Last 3 Months Immunizations Immunization Administration [...] Description 05/18/2025 1:00 PM EST Office Visit [address] [place] [address] Daisy Sherwood MD, MPH [address] [place] [address] [address] [address] [email or web address] Scheduled Procedures Name Priority Associated Diagnoses Date/Ti me ROBOTIC LAPAROSCOPIC PROSTAT ECTOMY RADICAL Malignant neoplasm of prostate Health Maintenance Due Date Last Done Comments [...] 05/27/2023, 04/07/2021, Additional history exists COVID-19 VACCINE (2024- season) 2025 05/27/2023, 05/03/2022, 03/02/2021, Additional history [...] patient's age to complete this topic IPV VACCINES Aged Out No longer eligi ble based on patient's age to complete this topic MENINGOCOCCAL VACCINES (ACWY) Aged Out No longer eligible based on patient's age to complete this topic MENINGOCOCCAL VACCINES (B) Aged Out N o longer eligible based on patient's age to complete this topic Medical Devices Implanted Type Area Screener And Blender Operator Device Identifier Shelf Expiration Date Model / Serial / Lot Opal Polisher Anastomosis 3mm Vesselxorthopedic Microvascular Polyethylene S/S Bx/6ea - [id number] Implanted:Qty: 1 on 03/18/2024 by Mary Ann Alford MD, FACS at [facility] [place] [employer] [facility] [employer] STANDARD Left: Neck [employer] 06/12/2027 [id number] / / [id number] Loop Recorder Patient Travels By Stretcher Procedures Procedure Name Priority Date/Time Associated Diagnosis Comments MRI PROSTATE WITH AND WITHOUT CONTRAST Routine 04/09/2025 1:59 PM EDT Prostate cancer MOHS SURGERY Routine 03/23/2025 2:17 PM EDT Squamous cell carcinoma of back Skin lesion DERMATOPATHOLOGY Routine 03/23/2025 12:0 0 AM EDT DERMATOPATHOLOGY Routine 03/23/2025 PSA DIAGNOSTIC (MONITORING) Routine 03/02/2025 3:48 PM EDT Prostate cancer MICROALBUMIN/CREATININE RATIO, RANDOM URINE Routine 03/22/2024 12:19 [...] clinician's provided indication for this examination in [facility]: * Prostate cancer, initial staging, low [...] clinician's provided indication for this examination in [facility]: *Prostate cancer, initial staging, low risk; History [...] created by Kendra Young. us Bartolome Sandy MD IMG MR PELVIS Final Result * Mohs surgery (03/23/2025 2:17 PM EDT) [...] of2 resultswithin the time period is included. Final Diagnosis A. SKIN, RIGHT SHOULDER, SHAVE BIOPSY: SQUAMOUS CELL CARCINOMA, invasive, moderately to well differentiated, present at deep margin. B. SKIN, LEFT HYPOCHONDRIAC REGION OF ABDOMEN, SHAVE BIOPSY: SQUAMOUS CELL CARCINOMA, invasive, transected at base. [facility] Clinical History A) 1.0 cm x 1.0 cm pink eroded papule x 1-3 months with change in size, color, and elevation B) 1.8 cm x 1.2 cm pink plaque with rolled border x 1-3 months with change in size, color, and elevation [facility] Operation Shave biopsy [facility] Clinical Diagnosis Squamous cell carcinoma [facility] Tissue Submitted A/1. Right shoulder B/2. Left hypochondriac region of abdomen [facility] Gross Description The specimen is received [...] rendered or confirmed the diagnosis(es) related thereto. [facility] Procedure Comments ProcCreate a paraffin block - [facility] Create a paraffin block - [facility] (order for accession only, not for recut) H&E stain on level 1 slide - [facility] (order for accession only, not for recut) H&E stain on level 1 slide - [facility] (order for accession only, not for recut) H&E stain on level 1 slide - [facility] (order for accession only, not for recut) H&E stain on level 1 slide - [facility] (order for accession only, not for recut) H&E stain on level 1 slide - [facility] (order for accession only, not for recut) H&E stain on level 2 slide - [facility] (order for accession only, not for recut) H&E stain on level 2 slide - [facility] (order for accession only, not for recut) H&E stain on level 2 slide - [facility] (order for accession only, not for recut) H&E stain on level 2 slide - [facility] (order for accession only, not for recut) H&E stain on level 2 slide - [facility] PATH[facility] Report Accession No: [id number] Date: 1955 Sex: Male [facility] [place] [facility] Department of Pathology [address] [place] [address] License No.: [id number] Twx Operator: Owen RdzD., Ph.D. Physician: DAISY SHERWOOD MD, MPH Procedure [...] labeled Right shoulder , consists of a mernio-white skin shave (1.3 x 1.3 x <0.1 [...] on Wednesday March 26, 2025 at 03:14:04PM [facility] Conversion Type (Skin) 03/23/2025 03/24/2025 Conversion Type (Skin) 03/23/2025 03/24/2025 Daisy Sherwood MD, MPH PATHOLOGY ORDERABLES Edited Result - Final Performing Organization Address City/[facility]/ZIP Co de Phone Number [facility] * PSA diagnostic (monitoring) (03/02/2025 3:48 PM EDT) PSA Monitoring 0.41 0.00 - 4.00 ng/mL [facility] LIC# [id number] Blood 03/02/2025 3:48 PM EDT 03/02/2025 4:03 PM EDT Bartolome Sandy MD LAB BLOOD BKR ORDERABLES Final Result Performing Organization Address [facility] Co de Phone Number [facility] LIC# [id number] [address] [place] [address] * (ABNORMAL) Microalbumin/creatinine ratio, random urine (03/22/2024 12:19 PM EDT) UR CREATININE 200.2 mg/dL [facility] Comment: No reference values apply. Interpret with other clinical data. MALB/CRE 82.9(H) 0.0 - 30.0 mg/Alb/g Cre [facility] URINE MICROALBUMIN 16.6(H) 0.0 - 2.0 mg/dL [facility] Urine (Urine) 03/22/2024 12: 19 PM EDT 03/22/2024 12:32 PM EDT Mary Ann Alford MD, FACS LAB URINE ORDERABLES Final Result Performing Organization Address City/[facility]/ZIP Co de Phone Number [facility] [address] [place] [phone] from Last 3 Months or Most Recently Relevant to Health Maintenance Insurance MEDICARE REPLACEMENT MEDICARE REPLACEMENT MEDICARE REPLACEMENT CARE MEDICARE REPLACEMENT CARE MEDICARE REPLACEMENT CARE MEDICARE REPLACEMENT Advance Directives For more information, please contact: [phone] (9AM - 5PM [facility], Saturday-Saturday) Documents on File Type Date Recorded Patient Automotive Glass Mechanic [facility] Proxy 03/28/2024 12:50 AM * Full Code (Latest Code Status on File) Date Activated Date Inactivated Comments 03/18/2024 9:06 PM Question Answer Comments Code Status Confirmed With: Patient Care Teams Tape Sewer Relationship Specialty Start Date End Date Tennille Linton NP [address] [place] [phone] PCP - General Nurse Practitioner 08/30/23 Anni Quiñonez PA [address] [place] [phone] [email or web address] Physician Pool Finisher 08/30/23 shana [facility]ers [facility] Law Office Manager Cardiology 03/12/24 Additional Source Comments The information contained in this document represents components of the legal health record. It is not the complete legal health record.[facility]
--- OUTSIDE RECORDS SUMMARY | 2025-04-30 12:14 | XMS_ITS | Encounter Summary ---
Author Organization [facility] [place] [facility] Address [address] [address] Phone Care Team Providers Care Hair Preparer Name Role Phone Tennille Linton NP Primary Care Provider + Encounter Details Date Type Department Care Team (Late st Contact Info) Description 04/22/2024 Documentation Only [facility] [place], [address] [place] [address] [place] [address] [place] [phone] Social History Tobacco Use Types Packs/Day [...] Visit [facility] [place] [address] [place] [address] Andrey Phan MD [address] [place] [address] documented as of this encounter Visit Diagnoses Not on filedocumented in this encounter Care Teams Hair Preparer Relationship Specialty Start Date End Date Tennille Linton NP [address] [place] [phone] PCP - General Nurse Practitioner 08/07/23 documented as of this encounter
--- OUTSIDE RECORDS SUMMARY | 2025-04-30 12:14 | XMS_ITS | Encounter Summary ---
Author Organization [facility] Address [address] [address] Phone Care Team Providers Care Crm Business Analyst Name Role Phone Tennille Linton NP Primary Care Provider + Encounter Details Date Type Department Care Team (Late st Contact Info) Description 05/26/2024 Documentation Only [facility] [place], [address] [place] [address] [place] [address] [place] [phone] Social History Tobacco Use Types Packs/Day [...] Visit [facility] [place] [address] [place] [address] Andrey Phan MD [address] [place] [address] documented as of this encounter Visit Diagnoses Not on filedocumented in this encounter Care Teams Crm Business Analyst Relationship Specialty Start Date End Date Tennlile Linton NP [address] [place] [phone] PCP - General Nurse Practitioner 08/07/23 documented as of this encounter
--- OUTSIDE RECORDS SUMMARY | 2025-04-30 12:14 | XMS_ITS | Encounter Summary ---
Author Organization [facility] Address [address] [address] Phone Care Team Providers Care Scale And Skip Car Operator Name Role Phone Tennille Linton NP Primary Care Provider + Encounter Details Date Type Department Care Team (Late st Contact Info) Description 06/29/2022 Documentation Only [facility] [place], [address] [place] [address] [place] [address] [place] [phone] Social History Tobacco Use Types Packs/Day [...] Visit [facility] [place] [address] [place] [address] Andrey Phan MD [address] [facility] [place] [address] documented as of this encounter Visit Diagnoses Not on filedocumented in this encounter Care Teams Scale And Skip Car Operator Relationship Specialty Start Date End Date Tennille Linton NP [address] [place] [phone] PCP - General Nurse Practitioner 08/07/23 documented as of this encounter
--- OUTSIDE RECORDS SUMMARY | 2025-04-30 12:14 | XMS_ITS | Encounter Summary ---
Author Organization [facility] Address [address] [address] Phone Care Team Providers Care Section Repairer Name Role Phone Tennille Linton Sloane NATHAN Primary Care Provider + Reason for Visit * Reason Comments Med Refill Encounter Details Date Type Department Care Team (Late st Contact Info) Description 12/15/2022 Refill [facility] [place], [address] [place] [address] Andrey Phan MD [address] [facility] [facility] [place] [address] Social History Tobacco Use Types [...] Visit [facility] [place] [address] [place] [place] [address] Andrey Phan MD [address] [facility] [facility] [place] [address] documented as of this encounter Visit Diagnoses Not on filedocumented in this encounter Care Teams Section Repairer Relationship Specialty Start Date End Date Tennille Linton NP [address] [place] [phone] PCP - General Nurse Practitioner 08/07/23 documented as of this encounter
--- OUTSIDE RECORDS SUMMARY | 2025-04-30 12:14 | XMS_ITS | Encounter Summary ---
Author Organization [facility] Address [address] [address] Phone Care Team Providers Care Numerical Control Lathe Operator Name Role Phone Tennille Linton NP Primary Care Provider + Encounter Details Date Type Department Care Team (Late st Contact Info) Description 12/09/2024 Documentation Only [facility] [place], [address] [place] [address] [place] [address] [place] [phone] Social History Tobacco Use Types Packs/Day [...] Visit [facility] [place] [address] [place] [address] Andrey Phan MD [address] [facility] [address] [place] [address] documented as of this encounter Visit Diagnoses Not on filedocumented in this encounter Care Teams Numerical Control Lathe Operator Relationship Specialty Start Date End Date Tennille Linton NP [address] [place] [phone] PCP - General Nurse Practitioner 08/07/23 documented as of this encounter
--- OUTSIDE RECORDS SUMMARY | 2025-04-30 12:14 | XMS_ITS | Encounter Summary ---
Author Organization [facility] Address [address] [address] Phone Care Team Providers Care Low Pressure Boiler Tender Name Role Phone Tennille Linton NP Primary Care Provider + Encounter Details Date Type Department Care Team (Late st Contact Info) Description 10/05/2024 Documentation Only [facility] [place], [address] [place] [address] [place] [address] [place] [phone] Social History Tobacco Use Types Packs/Day [...] Visit [facility] [place] [address] [place] [address] Andrey Phan MD [address] [facility] [place] [address] documented as of this encounter Visit Diagnoses Not on filedocumented in this encounter Care Teams Low Pressure Boiler Tender Relationship Specialty Start Date End Date Tennille Linton NP [address] [place] [phone] PCP - General Nurse Practitioner 08/07/23 documented as of this encounter
--- OUTSIDE RECORDS SUMMARY | 2025-04-30 12:14 | XMS_ITS | Continuity of Care Document ---
Author Organization [facility] Address [address] [facility] [address] [place], [place] Phone [phone] Care Team Providers Care Manager Cash Name Role Phone Lashell Aguilar MD Care Team Information Receive TESSA Cartwrigth M.D. Care Team Information Rec eiver Unavailable [...] SIG Qnty Indications Order ing Provider Date Uosllfs721Erfn/ML Solution 6-10 unit subcutaneous three times a day 3vials Tessa Paredes M.D. 03/19/2017 Rosuvastatin Ncqdrnn6vg Tablets 1/2 By Mouth Every Day 14tabs E10.8 Tessa Paredes M.D. 10/15/2016 [facility] Syr/NDL 29G 0.5ML U/F Use 1 Syringe Under The Skin Three Times Daily 90units E10.8 Tessa Paredes M.D. 12/03/2014 Freestyle Lite TestStrips 1 Strip To Meter 8 Times A Day 750units E10.8 Tessa Paredes M.D. 11/27/2014 N25.9 Phyexe724Yvzh/ML Solution 12 unit subcutaneous twice a day 1units Tessa Paredes M.D. 11/05/2014 Freestyle LiteStrips (Blood Sugar Use 1 Strip Every Two Hours While Awake Check Blood Sugar 6-8 Timesa Day 750units E10.8 Tessa Paredes M.D. 09/29/2014 Odwgjyjrpx13sk Tablets TK 1 T PO qd Unkn own Ssasucmxll88.5mg Tablets TK 1 T PO bid U nknown Amlodipine Lzzcgcwa89ae Tablets 1 by mouth every day Jeff Lobo MD Funigxurh5lm Tablets 1 by mouth every day 30tabs Tessa Paredes M.D. Hydralazine ZSN15mc Tablets Jeff Lobo MD Doxazosin Cdwmdqhr3be Tablets TK 1 T PO QHS Unknown Hbnflr615bz Tablets 1 tab by mouth daily Unknown Citrate Unknown History Medications Pravastatin Mjfoia04qt Tablets 1 by mouth every day 30tabs E10.8 Tessa Paredes M.D. 07/06/2016 - 10/15/2016 Levothyroxine Cftgii50vgi Tablets 1/2 by mouth every day=12.5/d 45tabs E03.9 Tessa Paredes M.D. 04/05/2016 - 07/06/2016 Gqecqrl599Sohg/ML Solution inject 6-10 units subcutaneously 3 times a day 30ml Tessa Paredes M.D. 11/05/2014 - 03/19/2017 Sertraline HSP19la Tablets TK 1 T PO qd Unknown - 11/05/2014 Oxycodone HCL5mg Tablets Unknown - 11/05/2014 Rxgyaf326Lkfs/ML Solution Jeff Lobo MD - 11/05/2014 Penicillin V Uqwhnrstl242mi Tablets TK 1 T PO Q 6 H Tat Unknown - 11/05/2014 Hydrocodone-Acetamin ophen5-325mg Tablets TK 1 T PO Q 4 To 6 H prn P For 7 Days Unknown - 11/05/2014 Tamsulosin HCL0.4mg Capsules TK One C PO bid For 30 Days Unknown - 11/05/2014 Drvcgyrs26lp Tablets TK 2 TS PO D For 30 Days Unknown - 11/05/2014 Ciprofloxacin JIT667kn Tablets TK 1 T PO Once D Unknown - 11/05/2014 Hydrocodone-Acetamin -199ct Tablets TK 1 T PO Q 6 H prn P Unknown - 11/05/2014 Ondansetron HCL8mg Tablets TK 1 T PO tid Unknown - 11/05/2014 Bzfioizw236pf Tablets TK 1 T PO D For 30 Days Unknown - 11/05/2014 Losartan Dfonazmyf191sm Tablets TK 1 T PO qd Unknown - 11/05/2014 Trazodone DJC89ek Tablets TK 1 T PO qd Unknown - 11/05/2014 Atorvastatin Edpkujm65wj Tablets TK 1 T PO Once A Day hs Unknown - 11/05/2014
--- OUTSIDE RECORDS SUMMARY | 2025-04-30 12:14 | XMS_ITS | Clinical Summary ---
Author Organization [facility], Address [address] [address] Phone Care Team Providers Care Sprinkler Fitter Apprentice Name Role Phone Tennille Linton NP Primary Care Provider + Allergies Active Allergy Reactions Criticality Noted Date Comments Hydromorphone Other (see comments) 08/12/2019 Oxycodone-Acetaminophen 06/29/2019 Phenytoin 06/29/2019 Medications aspirin (ST MAGNO) 81 MG EC tablet Take 1 tablet by mouth 1 (one) time each day Active glucose blood test strip 1 strip by Other route 11/23/19 18 Active Continuous Blood Gluc Professor Of Rhetoric (DEXCOM G6 SLEEVE MACHINE TENDER) device UTD TO MONITOR BS 08/24/19 20 Active Continuous Blood Gluc Sensor (DEXCOM G6 SENSOR) [facility] UTD TO MONITOR BS CHANGE EVERY 10 DAYS 10/01/19 20 Active Continuous Blood Gluc Transmit (DEXCOM G6 TRANSMITTER) [facility] UTD TO MONITOR BS. CHANGE EVERY 90 DAYS 09/30/19 20 Active BD PEN NEEDLE BASSAM U/F 32G X 4 MM [facility] USE TO INJECT INSULIN ONCE DAILY 08/19/19 20 Active B-D ULTRAFINE III SHORT PEN 31G X 8 MM [facility] 09/08/19 20 Active Insulin Aspart FlexPen 100 [...] time each day 90 capsule 11 11/18/19 Active pantoprazole (PROTONIX) 20 MG EC tablet Take 1 tablet (20 mg total) by mouth 1 (one) time each day in the evening 90 tablet 3 11/18/19 25 Active LORazepam (Ativan) 0.5 MG tablet [...] evening. 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); History of immunosuppressive therapy; Stage 3b chronic kidney disease (HCC); 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); History of renal transplant; Immunosuppression (HCC); Poor glycemic control; Other iron deficiency anemia; Other specified hypoparathyroidism (HCC); Albuminuria, not otherwise specified; BK virus nephropathy 04/19/2025 Orders Only [facility] [address] [place] [address] Danica Price, RN 04/13/2025 Telephone [facility] [address] [place] [address] Danica Price, RN 03/23/2025 Orders Only [facility] [address] [place] [address] Annika Mcclure MA 03/16/2025 Documentation Only [facility] [address] [place] [address] Annika Mcclure MA 03/10/2025 Telephone [facility] [address] [place] [address] Danica Price RN 03/09/2025 9:15 AM EDT Office Visit [facility] [address] [place] [address] Andrey Phna MD History of immunosuppressive therapy (Primary Dx); Kidney replaced by transplant; Stage 3b chronic kidney disease (HCC); 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) 03/05/2025 Documentation Only [facility] [address] [place] [address] Stephanie Mina MA 03/04/2025 Documentation Only [facility] [address] [place] [address] Annika Mcclure MA 03/01/2025 Orders Only [facility] [address] [place] [address] Annika Mcclure MA Stage 3b chronic kidney disease (HCC) (Primary Dx); History of immunosuppressive therapy; Kidney replaced by transplant; 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) Hypervolemia History of renal transplant Poor glycemic control Other iron deficiency anemia Other specified hypoparathyroidism (HCC) Albuminuria, not otherwise specified BK virus nephropathy from Last 3 Months or Most Recently Relevant to Health Maintenance Results * Tacrolimus, Highly Sensitive, LC/MS/MS (04/19/2025 1:11 PM EDT) Andrey Phan MD LAB BLOOD ORDERABLES Final Result [facility] * Hemoglobin A1c (01/04/2025 9:25 AM EDT) Blood Venous blood / Unknown Andrey Phan MD LAB BLOOD ORDERABLES Final Result [facility] from Last 3 Months or Most Recently Relevant to Health Maintenance Insurance [employer] Dual SNP ([id number]) [place] [id number] Advance Directives Healthcare Agents on File Name Relationship Healthcare Agent Relationshi p Communication Nataliia Hartman Sister Health Care Agent [id number] (Mobile) Care Teams Sprinkler Fitter Apprentice Relationship Specialty Start Date End Date Tennille Linton [facility] [place] [address] PCP - General Nurse Practitioner 08/07/23
--- OUTSIDE RECORDS SUMMARY | 2025-04-30 12:14 | XMS_ITS | Encounter Summary ---
Author Organization [facility] Address [address] [address] Phone Care Team Providers Care Commodity Manager Name Role Phone Tennille Linton NP Primary Care Provider + Encounter Details Date Type Department Care Team (Late st Contact Info) Description 04/27/2024 Documentation Only [facility] [place], [address] [place] [address] [place] [address] [place] [phone] Social History Tobacco Use Types Packs/Day [...] Visit [facility] [place] [address] [place] [address] Andrey Phan MD [address] [facility] [place] [address] documented as of this encounter Visit Diagnoses Not on filedocumented in this encounter Care Teams Commodity Manager Relationship Specialty Start Date End Date Tennille Linton NP [address] [place] [phone] PCP - General Nurse Practitioner 08/07/23 documented as of this encounter
--- OUTSIDE RECORDS SUMMARY | 2025-04-30 12:14 | XMS_ITS | Encounter Summary ---
Author Organization [facility] [place], Address [address] [address] Phone Care Team Providers Care Kitchen Worker Name Role Phone Decker, Tennille Sloane NATHAN Primary Care Provider + Reason for Visit * Reason Comments Med Refill Encounter Details Date Type Department Care Team (Late st Contact Info) Description 09/18/2022 Refill [facility] [address] [place] [address] Andrey Phan MD [address] [place] [address] [place] [address] Social History Tobacco Use Types [...] [facility] [address] [place] [address] Andrey Phan MD [address] [place] [address] [place] [address] documented as of this encounter Visit Diagnoses Not on filedocumented in this encounter Care Teams Kitchen Worker Relationship Specialty Start Date End Date Tennille Linton NP [address] [place] [phone] PCP - General Nurse Practitioner 08/07/23 documented as of this encounter
--- OUTSIDE RECORDS SUMMARY | 2025-04-30 12:15 | XMS_ITS | Encounter Summary ---
Author Organization [facility] Address [address] [place] [address] [place] [address] Phone Care Team Providers Care Electrical Electronics Engineers Name Role Phone Tennille Linton NP Primary Care Provider + Anni Quiñonez PA Unavailable [phone] Encounter Details Date Type Department Care Team (Late st Contact Info) Description 03/24/2024 Procedure Pass [facility] [address] [place] [address] Social History Tobacco Use Types Packs/Day Years [...] Description 05/18/2025 1:00 PM EST Office Visit [facility] [address] [facility] [address] [address] Daisy Diaz MD, MPH [address] [facility] [address] [address] [email or web address] Scheduled Procedures Name Priority Associated Diagnoses Date/Ti me ROBOTIC LAPAROSCOPIC PROSTAT ECTOMY RADICAL Malignant neoplasm of prostate documented as of this encounter Visit Diagnoses Not on filedocumented in this encounter Care Teams Electrical Electronics Engineers Relationship Specialty Start Date End Date Tennille Linton NP [address] [place] [address] PCP - General Nurse Practitioner 08/30/23 Anni Quiñonez PA [address] [place] [address] [email or web address] Physician Support Services Rep 08/30/23 shana myers [facility] Program [facility] Top Spotter Cardiology 03/12/24 documented as of this encounter Additional Source Comments The information contained in this document represents components of the legal health record. It is not the complete legal health record.[facility]
--- OUTSIDE RECORDS SUMMARY | 2025-04-30 12:15 | XMS_ITS | Encounter Summary ---
Author Organization [facility] Address [address] [address] Phone Care Team Providers Care Plant Culture Manager Name Role Phone Tennille Linton NP Primary Care Provider + Encounter Details Date Type Department Care Team (Late st Contact Info) Description 01/08/2025 Documentation Only [facility] [place], [address] [place] [address] [place] [address] [place] [phone] Social History Tobacco Use Types Packs/Day [...] Visit [facility] [place] [address] [place] [address] Andrey Phan MD [address] [place] [address] documented as of this encounter Visit Diagnoses Not on filedocumented in this encounter Care Teams Plant Culture Manager Relationship Specialty Start Date End Date Tennille Linton NP [address] [place] [phone] PCP - General Nurse Practitioner 08/07/23 documented as of this encounter
--- OUTSIDE RECORDS SUMMARY | 2025-04-30 12:15 | XMS_ITS | Encounter Summary ---
Author Organization [facility] Address [address] [address] Phone Care Team Providers Care Metal Mine Inspector Name Role Phone Tennille Linton NP Primary Care Provider + Encounter Details Date Type Department Care Team (Late st Contact Info) Description 03/26/2024 Documentation Only [facility] [place], [address] [place] [address] [place] [address] [place] [phone] Social History Tobacco Use Types Packs/Day [...] Visit [facility] [place] [address] [place] [address] Andrey Phan MD [address] [facility] [place] [address] documented as of this encounter Visit Diagnoses Not on filedocumented in this encounter Care Teams Metal Mine Inspector Relationship Specialty Start Date End Date Teninlle Linton NP [address] [place] [phone] PCP - General Nurse Practitioner 08/07/23 documented as of this encounter
--- OUTSIDE RECORDS SUMMARY | 2025-04-30 12:15 | XMS_ITS | Encounter Summary ---
Author Organization [facility] Address [address] [address] Phone Care Team Providers Care Honeycomb Decapper Name Role Phone Tennille Linton NP Primary Care Provider + Encounter Details Date Type Department Care Team (Late st Contact Info) Description 08/28/2023 Documentation Only [facility] [place], [address] [place] [address] [place] [address] [place] [phone] Social History Tobacco Use Types Packs/Day [...] Visit [facility] [place] [address] [place] [address] Andrey Phan MD [address] [facility] [place] [address] documented as of this encounter Visit Diagnoses Not on filedocumented in this encounter Care Teams Honeycomb Decapper Relationship Specialty Start Date End Date Tennille Linton NP [address] [place] [phone] PCP - General Nurse Practitioner 08/07/23 documented as of this encounter
--- OUTSIDE RECORDS SUMMARY | 2025-04-30 12:15 | XMS_ITS | Encounter Summary ---
Author Organization [facility] Address [address] [address] Phone Care Team Providers Care Garbage Truck Driver Name Role Phone Tennille Linton NP Primary Care Provider + Encounter Details Date Type Department Care Team (Late st Contact Info) Description 12/31/2024 Documentation Only [facility] [place], [address] [place] [address] [place] [address] [place] [phone] Social History Tobacco Use Types Packs/Day [...] Visit [facility] [place] [address] [place] [address] Andrey Phan MD [address] [facility] [address] [place] [address] documented as of this encounter Visit Diagnoses Not on filedocumented in this encounter Care Teams Garbage Truck Driver Relationship Specialty Start Date End Date Tennille Linton NP [address] [place] [phone] PCP - General Nurse Practitioner 08/07/23 documented as of this encounter
--- OUTSIDE RECORDS SUMMARY | 2025-04-30 12:15 | XMS_ITS | Encounter Summary ---
Author Organization [facility] Address [address] [address] Phone Care Team Providers Care Pattern Finisher Name Role Phone Tennille Linton Sloane NATHAN Primary Care Provider + Reason for Visit * Reason Comments Med Refill Encounter Details Date Type Department Care Team (Late st Contact Info) Description 06/20/2023 Refill [facility] [place], [address] [place] [address] Andrey Phan MD [address] [facility] [address] [place] [address] Social History Tobacco Use Types [...] Visit [facility] [place] [address] [place] [address] Andrey Phan MD [address] [facility] [address] [place] [address] documented as of this encounter Visit Diagnoses Not on filedocumented in this encounter Care Teams Pattern Finisher Relationship Specialty Start Date End Date Tennille Linton NP [address] [place] [phone] PCP - General Nurse Practitioner 08/07/23 documented as of this encounter
--- OUTSIDE RECORDS SUMMARY | 2025-04-30 12:15 | XMS_ITS | Encounter Summary ---
Author Organization [facility] Address [address] [place] [address] [place] [address] Phone Care Team Providers Care Job Training Supervisor Name Role Phone Tennille Linton NP Primary Care Provider + Anni Quiñonez PA Unavailable [phone] Encounter Details Date Type Department Care Team (Late st Contact Info) Description 03/20/2024 Procedure Pass [facility] Echocardiography [address] [place] [address] Social History Tobacco Use Types Packs/Day Years [...] Description 05/18/2025 1:00 PM EST Office Visit [facility] [address] [facility] [address] [place] [address] Daisy Diaz MD, MPH [address] [place] [address] [address] [address] [email or web address] Scheduled Procedures Name Priority Associated Diagnoses Date/Ti ks ROBOTIC LAPAROSCOPIC PROSTAT ECTOMY RADICAL Malignant neoplasm of prostate documented as of this encounter Visit Diagnoses Not on filedocumented in this encounter Care Teams Job Training Supervisor Relationship Specialty Start Date End Date Tennille Linton NP [address] [place] [address] PCP - General Nurse Practitioner 08/30/23 Anni Quiñonez PA [address] [place] [phone] [email or web address] [email or web address] Cell Inspector 08/30/23 shana myers Heart V[facility] Program [facility] Dimethylaniline Sulfator Operator Cardiology 03/12/24 documented as of this encounter Additional Source Comments The information contained in this document represents components of the legal health record. It is not the complete legal health record.[facility]
--- OUTSIDE RECORDS SUMMARY | 2025-04-30 12:15 | XMS_ITS | Encounter Summary ---
Author Organization [facility] Address [address] [place] [address] [place] [address] Phone Care Team Providers Care Correctional Treatment Specialist Name Role Phone Tennille Linton NP Primary Care Provider + Anni Quiñonez PA Unavailable [phone] Encounter Details Date Type Department Care Team (Late st Contact Info) Description 04/27/2025 Orders Only [facility] [address] [facility]th [place] [address] Alejandra Ruggiero, RN [address] [place] [phone] [email or web address] 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- Primary SCCA (squamous cell carcinoma) of skin documented in this encounter Care Teams Correctional Treatment Specialist Relationship Specialty Start Date End Date Tennille Linton NP [address] [place] [address] PCP - General Nurse Practitioner 08/30/23 Anni Quiñonez PA [address] [facility] [address] [place] [address] [email or web address] [email or web address] Specialist 08/30/23 shana myers Heart Vascular Program [facility] Intake Manager Cardiology 03/12/24 documented as of this encounter Additional Source Comments The information contained in this document represents components of the legal health record. It is not the complete legal health record.[facility]
--- OUTSIDE RECORDS SUMMARY | 2025-04-30 12:15 | XMS_ITS | Encounter Summary ---
Author Organization [facility] Address [address] [address] Phone Care Team Providers Care Distribution District Supervisor Name Role Phone Tennille Linton NP Primary Care Provider + Encounter Details Date Type Department Care Team (Late st Contact Info) Description 08/13/2023 Documentation Only [facility] [place], [address] [place] [address] [place] [address] [place] [phone] Social History Tobacco Use Types Packs/Day [...] Visit [facility] [place] [address] [place] [address] Andrey Phan MD [address] [facility] [place] [address] documented as of this encounter Visit Diagnoses Not on filedocumented in this encounter Care Teams Distribution District Supervisor Relationship Specialty Start Date End Date Tennille Linton NP [address] [place] [phone] PCP - General Nurse Practitioner 08/07/23 documented as of this encounter
--- OUTSIDE RECORDS SUMMARY | 2025-04-30 12:15 | XMS_ITS | Encounter Summary ---
Author Organization [facility] Address [address] [place] [address] [place] [address] Phone Care Team Providers Care Home Paraprofessional Name Role Phone Tennille Linton NP Primary Care Provider + Anni Quiñonez PA Unavailable [phone] Encounter Details Date Type Department Care Team (Late st Contact Info) Description 02/25/2024 Procedure Pass [facility] Radiology [address] [place] [address] Social History Tobacco Use Types Packs/Day Years [...] Description 05/18/2025 1:00 PM EST Office Visit [facility] Center [address] [place] [address] Daisy Diaz MD, MPH [address] [facility] [address] [place] [address] [email or web address] Scheduled Procedures Name Priority Associated Diagnoses Date/Ti me ROBOTIC LAPAROSCOPIC PROSTAT ECTOMY RADICAL Malignant neoplasm of prostate documented as of this encounter Visit Diagnoses Not on filedocumented in this encounter Care Teams Home Paraprofessional Relationship Specialty Start Date End Date Tennille Linton NP [address] [place] [address] PCP - General Nurse Practitioner 08/30/23 Anni Quiñonez PA [address] [place] [address] 106 [place] [address] [email or web address] [email or web address] Mission Systems Superintendent 08/30/23 shana myers [facility] Metal Stamping Machine Operator Cardiology 03/12/24 documented as of this encounter Additional Source Comments The information contained in this document represents components of the legal health record. It is not the complete legal health record.[facility]
--- OUTSIDE RECORDS SUMMARY | 2025-04-30 12:15 | XMS_ITS | Encounter Summary ---
Author Organization [facility] Address [address] [place] [address] [place] [address] Phone Care Team Providers Care Assistant Secretary Name Role Phone Tennille Linton NP Primary Care Provider + Anni Quiñonez PA Unavailable [phone] Encounter Details Date Type Department Care Team (Late st Contact Info) Description 02/25/2024 Procedure Pass [facility] Radiology [address] [place] [address] Social History Tobacco Use Types Packs/Day Years [...] Description 05/18/2025 1:00 PM EST Office Visit [facility] Center [address] [place] [address] Daisy Diaz MD, MPH [address] [facility] [address] [place] [address] [email or web address] Scheduled Procedures Name Priority Associated Diagnoses Date/Ti me ROBOTIC LAPAROSCOPIC PROSTAT ECTOMY RADICAL Malignant neoplasm of prostate documented as of this encounter Visit Diagnoses Not on filedocumented in this encounter Care Teams Assistant Secretary Relationship Specialty Start Date End Date Tennille Linton NP [address] [place] [address] PCP - General Nurse Practitioner 08/30/23 Anni Quiñonez PA [address] [place] [address] 106 [place] [address] [email or web address] [email or web address] Credit Correspondence Clerk 08/30/23 shana myers [facility] Program [facility] Auto Mechanics Instructor Cardiology 03/12/24 documented as of this encounter Additional Source Comments The information contained in this document represents components of the legal health record. It is not the complete legal health record.[facility]
--- OUTSIDE RECORDS SUMMARY | 2025-04-30 12:15 | XMS_ITS | Encounter Summary ---
Author Organization [facility] Address [address] [address] Phone Care Team Providers Care Data Integration Architect Name Role Phone Tennille Linton NP Primary Care Provider + Encounter Details Date Type Department Care Team (Late st Contact Info) Description 12/31/2024 Documentation Only [facility] [place], [address] [place] [address] [place] [address] [place] [phone] Social History Tobacco Use Types Packs/Day [...] Visit [facility] [place] [address] [place] [address] Andrey Phan MD [address] [facility] [place] [address] documented as of this encounter Visit Diagnoses Not on filedocumented in this encounter Care Teams Data Integration Architect Relationship Specialty Start Date End Date Tennille Linton NP [address] [place] [phone] PCP - General Nurse Practitioner 08/07/23 documented as of this encounter
--- OUTSIDE RECORDS SUMMARY | 2025-04-30 12:15 | XMS_ITS | Encounter Summary ---
Author Organization [facility] [place], Address [address] [address] Phone Care Team Providers Care Scaler Packer Name Role Phone Ebony Lintonher Sloane NATHAN Primary Care Provider + Reason for Visit * Reason Comments Med Refill Encounter Details Date Type Department Care Team (Late st Contact Info) Description 12/19/2023 Refill [facility] [place], [address] [place] [address] Kennedy Childs DO [address] [facility] [place] [address] Social History Tobacco Use Types [...] Visit [facility] [place] [address] [place] [address] Andrey Phan MD [address] [facility] [place] [address] documented as of this encounter Visit Diagnoses Not on filedocumented in this encounter Care Teams Scaler Packer Relationship Specialty Start Date End Date Tennille Linton NP [address] [place] [phone] PCP - General Nurse Practitioner 08/07/23 documented as of this encounter
--- OUTSIDE RECORDS SUMMARY | 2025-04-30 12:15 | XMS_ITS | Encounter Summary ---
Author Organization [facility] Address [address] [place] [address] [place] [address] Phone Care Team Providers Care Body Shop Mechanic Name Role Phone Tennille Linton NP Primary Care Provider + Anni Quiñonez PA Unavailable [phone] Encounter Details Date Type Department Care Team (Late st Contact Info) Description 03/18/2024 Procedure Pass [facility] Periop [address] [place] [address] Social History Tobacco Use Types Packs/Day Years [...] 03/19/2024 9:00 AM Vani Mei RN * [place] Suicide Severity Rating Scale (Screener/Recent Self-Report) Question Answer Date of Assessment Author 1. Wish to be (Past 1 Month) No 03/19/2024 9:00 AM Vani Mei RN 2. Non-Specific Active Suicidal Thoughts (Past 1 Month) No 03/19/2024 9:00 AM Vani Mei RN 6. Suicidal Behavior (Lifetime) No 03/19/2024 9:00 AM EDT Vani Maloney RN documented as of this encounter Plan of Treatment Upcoming Encounters Date Type Department Care Team (Late st Contact Info) Description 05/18/2025 1:00 PM EST Office Visit [facility] [address] [facility] [address] [place] [address] Daisy Diaz MD, MPH [address] [facility] [address] [place] [address] [email or web address] Scheduled Procedures Name Priority Associated Diagnoses Date/Ti me ROBOTIC LAPAROSCOPIC PROSTAT ECTOMY RADICAL Malignant neoplasm of prostate documented as of this encounter Visit Diagnoses Not on filedocumented in this encounter Care Teams Body Shop Mechanic Relationship Specialty Start Date End Date Tennille Linton NP [address] [place] [address] PCP - General Nurse Practitioner 08/30/23 Anni Quiñonez PA [address] [place] [address] 106 [place] [address] [email or web address] Attendant 08/30/23 shana myers Heart Vascular Program [facility] Cylinder Press Feeder Cardiology 03/12/24 documented as of this encounter Additional Source Comments The information contained in this document represents components of the legal health record. It is not the complete legal health record.[facility]
--- OUTSIDE RECORDS SUMMARY | 2025-04-30 12:15 | XMS_ITS | Encounter Summary ---
Author Organization [facility] Address [address] [place] [address] [place] [address] Phone Care Team Providers Care Program Developer Name Role Phone Tennille Linton NP Primary Care Provider + Anni Quiñonez PA Unavailable [phone] Encounter Details Date Type Department Care Team (Late st Contact Info) Description 09/17/2024 Procedure Pass [facility], [facility] [place] [address] [facility] [place] [address] Social History Tobacco Use Types Packs/Day Years [...] Description 05/18/2025 1:00 PM EST Office Visit [facility] Center [address] [facility] [address] [place] [address] Daisy Diaz MD, MPH [address] [facility] [address], [place] [address] [email or web address] Scheduled Procedures Name Priority Associated Diagnoses Date/Ti me ROBOTIC LAPAROSCOPIC PROSTAT ECTOMY RADICAL Malignant neoplasm of prostate documented as of this encounter Visit Diagnoses Not on filedocumented in this encounter Care Teams Program Developer Relationship Specialty Start Date End Date Tennille Linton NP [address] [place] [address] PCP - General Nurse Practitioner 08/30/23 Anni Quiñonez PA [address] [place] [address] [email or web address] Driver 08/30/23 shana myers [facility] Library Consultant Cardiology 03/12/24 documented as of this encounter Additional Source Comments The information contained in this document represents components of the legal health record. It is not the complete legal health record.[facility]
--- OUTSIDE RECORDS SUMMARY | 2025-04-30 12:15 | XMS_ITS | Encounter Summary ---
Author Organization [facility] Address [address] [place] [address] Care Team Providers Care Hr Associate Name Role Phone Michelle Rucker MD Primary Care Provider + Encounter Details Date Type Department Care Team (Late st Contact Info) Description 04/29/2024 Lab Requisition [facility] - Main Lab [address] [place] [address] Michelle Rucker MD [address] [facility] [address] [place], [place] [id number] Urinary tract infection, site not specified Social [...] and culture (04/29/2024 8:00 AM EST) Specific [place] Urine 1.012 1.003 - 1.030 LAB URINALYSIS - AUTOMATED METHOD 04/29/2024 2:52 PM [facility] pH, Urine 6.0 5.0 - 8.0 pH LAB URINALYSIS - AUTOMATED METHOD 04/29/2024 2:52 PM [facility] Leukocytes, Urine Trace(A) Negative LAB URINALYSIS - AUTOMATED METHOD 04/29/2024 2:52 PM [facility] Nitrite, Urine Negative Negative LAB URINALYSIS - AUTOMATED METHOD 04/29/2024 2:52 PM [facility] Protein, Urine Trace <=Trace mg/dL LAB URINALYSIS - AUTOMATED METHOD 04/29/2024 2:52 PM [facility] Glucose, Urine 250(A) Negative mg/dL LAB URINALYSIS - AUTOMATED METHOD 04/29/2024 2:52 PM [facility] Ketones, Urine Negative Negative mg/dL LAB URINALYSIS - AUTOMATED METHOD 04/29/2024 2:52 PM [facility] Urobilinogen, Urine 0.2 0.2 - 1.0 mg/dL LAB URINALYSIS - AUTOMATED METHOD 04/29/2024 2:52 PM [facility] Bilirubin, Urine Negative Negative LAB URINALYSIS - AUTOMATED METHOD 04/29/2024 2:52 PM [facility] Blood, Urine Negative Negative LAB URINALYSIS - AUTOMATED METHOD 04/29/2024 2:52 PM [facility] RBC, Urine 2.3 0 - 4 /HPF LAB URINALYSIS - AUTOMATED METHOD 04/29/2024 2:52 PM [facility] WBC, Urine 2.8 0 - 4 /HPF LAB URINALYSIS - AUTOMATED METHOD 04/29/2024 2:52 PM [facility] Squamous Epithelial, Urine 6 0 - 60 /LPF LAB URINALYSIS - AUTOMATED METHOD 04/29/2024 2:52 PM [facility] Bacteria, Urine Negative Negative /HPF [...] ORDERABLES Fin al Result Performing Organization Address [facility] Co de Phone Number [facility] [address] [place] [address], [place] [phone] * (ABNORMAL) Culture urine (04/29/2024 8:00 AM [...] AL ORDERABLES Final Result Performing Organization Address [facility]/ZIP Co de Phone Number [facility] [address] [place] [address], [place] [phone] documented in this encounter Visit Diagnoses Diagnosis Urinary tract infection, site not specified documented in this encounter Additional Health Concerns Infection Onset Date Last Indicated Resolved Time C. difficile Rule-Out 08/14/2024 08/13/20242024 11:06 AM EST MDRO (other) 12/15/2024 12/15/2024 documented as of this encounter Care Teams Hr Associate Relationship Specialty Start Date End Date Michelle Rucker MD [address] [address] PCP - General Family Medicine 05/06/24 documented as of this encounter
--- OUTSIDE RECORDS SUMMARY | 2025-04-30 12:16 | XMS_ITS | Encounter Summary ---
Author Organization [facility] [place], Address [address] [address] Phone Care Team Providers Care Battery Assembler Name Role Phone MargarettsvilleTennille cantor Sloane NATHAN Primary Care Provider + Encounter Details Date Type Department Care Team (Late st Contact Info) Description 01/09/2025 Documentation Only [facility] [place] [address] [place] [phone] Gagandeep Sims MD [address] [place] [address] [place] [address] Social History Tobacco Use Types [...] Visit [facility] [address] [place] [phone] Andrey Phan MD [address] [place] [address] [place] [address] documented as of this encounter Visit Diagnoses Not on filedocumented in this encounter Care Teams Battery Assembler Relationship Specialty Start Date End Date Tennille Linton NP [address] [place] [phone] PCP - General Nurse Practitioner 08/07/23 documented as of this encounter
--- OUTSIDE RECORDS SUMMARY | 2025-04-30 12:16 | XMS_ITS | Encounter Summary ---
Author Organization [facility] [place], Address [address] [address] Phone Care Team Providers Care Olive Knocker Name Role Phone HermannTennille cantor Sloane NATHAN Primary Care Provider + Reason for Visit * Reason Comments Med Refill Encounter Details Date Type Department Care Team (Late st Contact Info) Description 07/11/2021 Refill [facility] [address] [place] [address] Denise Isbell PA [address] [place] [address] [place] [address] Social History Tobacco Use Types [...] Visit [facility] [place] [address] [phone] Andrey Phan MD [address] [place] [address] [place] [phone] documented as of this encounter Visit Diagnoses Not on filedocumented in this encounter Care Teams Olive Knocker Relationship Specialty Start Date End Date Tennille Linton NP [address] [place] [phone] PCP - General Nurse Practitioner 08/07/23 documented as of this encounter
--- OUTSIDE RECORDS SUMMARY | 2025-04-30 12:16 | XMS_ITS | Encounter Summary ---
Author Organization [facility] Address [address] [place] [phone] Care Team Providers Care Certified Ethical Hacker Name Role Phone Michelle Rucker MD Primary Care Provider + Encounter Details Date Type Department Care Team (Late st Contact Info) Description 05/06/2024 Lab Requisition [facility] - Main Lab [address] [facility] [place] [address] Michelle Rucker MD [address] [address] Heart failure, unspecified (CMS/HCC V24, [...] developed and the performance characteristics determined by [facility]. This confirmation testing has not been cleared or approved by the FDA. The laboratory is regulated under CLIA as qualified to perform high-complexity testing. This test is used for patient testing purposes. It should not be regarded as investigational or for research. Test performed at [facility], [address], [place], [place] [id number] Brittanie Horan MD, PhD - Speed Reading Teacher Blood Venous blood specimen / Unknown Venipuncture / Unknown 05/06/2024 6:56 AM EST 05/06/2024 9:44 AM EST us Michelle Rucker MD LAB BLOOD ORDERABLES Fin al Result [facility] [address] [place], [place] [id number] * (ABNORMAL) Comprehensive metabolic panel (05/06/2024 6:56 AM EST) Sodium 137 133 - 145 mmol/L LAB CHEMISTRY METHOD 05/06/2024 12:15 PM EST [facility] Potassium 4.6 3.5 - 5.5 mmol/L LAB CHEMISTRY METHOD 05/06/2024 12:15 PM [facility] Chloride 105 96 - 110 mmol/L LAB CHEMISTRY METHOD 05/06/2024 12:15 PM [facility] CO2 21 21 - 32 mmol/L LAB CHEMISTRY METHOD 05/06/2024 12:15 PM [facility] Anion Gap 11 3 - 11 LAB CHEMISTRY METHOD 05/06/2024 12:15 PM [facility] Glucose 246(H) 70 - 100 mg/dL LAB CHEMISTRY METHOD 05/06/2024 12:15 PM [facility] BUN 24 5 - 25 mg/dL LAB CHEMISTRY METHOD 05/06/2024 12:15 PM [facility] Creatinine 1.63(H) 0.70 - 1.30 mg/dL LAB CHEMISTRY METHOD 05/06/2024 12:15 PM [facility] eGFR 46(L) >=60 mL/min/1. 73m2 LAB CHEMISTRY METHOD 05/06/2024 12:15 PM [facility] Comment:Calculation based on the Chronic Kidney Disease Epidemiology Collaboration (CKD-EPI) equation refit without adjustment for race. BUN/Creatinine Ratio 14.7 LAB CHEMISTRY METHOD 05/06/2024 12:15 PM [facility] Calcium 9.7 8.5 - 10.5 mg/dL LAB CHEMISTRY METHOD 05/06/2024 12:15 PM [facility] AST (SGOT) 19 10 - 42 unit/L LAB CHEMISTRY METHOD 05/06/2024 12:15 PM [facility] ALT (SGPT) 12 10 - 60 unit/L LAB CHEMISTRY METHOD 05/06/2024 12:15 PM [facility] Alkaline Phosphatase 61 42 - 121 unit/L LAB CHEMISTRY METHOD 05/06/2024 12:15 PM [facility] Total Protein 7.1 6.0 - 8.0 g/dL LAB CHEMISTRY METHOD 05/06/2024 12:15 PM EST [facility] Albumin 3.3 3.2 - 5.0 g/dL LAB CHEMISTRY METHOD 05/06/2024 12:15 PM [facility] Total Bilirubin 0.8 0.0 - 1.4 mg/dL LAB CHEMISTRY METHOD 05/06/2024 12:15 PM [facility] Blood Venous blood specimen / Unknown Venipuncture / Unknown 05/06/2024 6:56 AM EST 05/06/2024 9:44 AM EST us Michelle Rucker MD LAB BLOOD ORDERABLES Fin al Result [facility] [address] [place] [address], * (ABNORMAL) Complete blood count (05/06/2024 6:56 AM EST) WBC 13.5(H) 4.8 - 10.8 K/mcL LAB HEMETOLOGY METHOD 05/06/2024 11:34 AM [facility] RBC 4.50 4.50 - 5.50 M/[facility] LAB HEMETOLOGY METHOD 05/06/2024 11:34 AM [facility] Hemoglobin 12.4(L) 13.5 - 17.5 g/dL LAB HEMETOLOGY METHOD 05/06/2024 11:34 AM [facility] Hematocrit 37.8(L) 42.0 - 54.0 % LAB HEMETOLOGY METHOD 05/06/2024 11:34 AM [facility] MCV 83.8 79.0 - 98.0 FL LAB HEMETOLOGY METHOD 05/06/2024 11:34 AM [facility] MCH 27.5 27.0 - 32.0 pcg LAB HEMETOLOGY METHOD 05/06/2024 11:34 AM EST [facility] MCHC 32.8 32.0 - 37.0 g/dL LAB HEMETOLOGY METHOD 05/06/2024 11:34 AM [facility] RDW 12.9 11.0 - 15.0 % LAB HEMETOLOGY METHOD 05/06/2024 11:34 AM [facility] Platelets 248 130 - 400 K/mcL LAB HEMETOLOGY METHOD 05/06/2024 11:34 AM [facility] MPV 11.0 7.0 - 11.0 FL LAB HEMETOLOGY METHOD 05/06/2024 11:34 AM [facility] NRBC 0.0 <1.0 % LAB HEMETOLOGY METHOD 05/06/2024 11:34 AM [facility] NRBC Absolute 0.00 <0.10 K/mcL LAB HEMETOLOGY METHOD 05/06/2024 11:34 AM [facility] Blood Venous blood specimen / Unknown Venipuncture / Unknown 05/06/2024 6:56 AM EST 05/06/2024 9:44 AM EST Michelle Rucker MD LAB BLOOD ORDERABLES Fin al Result [facility] [address] [place] [address], documented in this encounter Visit Diagnoses Diagnosis [...] documented as of this encounter Care Teams Certified Ethical Hacker Relationship Specialty Start Date End Date Michelle Rucker MD [address] [address] PCP - General Family Medicine 05/06/24 documented as of this encounter
--- OUTSIDE RECORDS SUMMARY | 2025-04-30 12:16 | XMS_ITS | Encounter Summary ---
Author Organization [facility] Address [address] [place] [phone] Care Team Providers Care Hand Packer Name Role Phone Michelle Rucker MD Primary Care Provider + Encounter Details Date Type Department Care Team (Late st Contact Info) Description 05/28/2024 Lab Requisition [facility] - Main Lab 299 [facility] [place] [address] Michelle Rucker MD 819 [facility] 1 [place] [address] Anemia, unspecified; Unspecified malignant neoplasm [...] - 20.0 ng/mL 05/30/2024 12:46 PM EST [facility] Comment: Additional Information: Toxic Level [...] developed and the performance characteristics determined by [facility]. This confirmation testing has not been cleared or approved by the FDA. The laboratory is regulated under CLIA as qualified to perform high-complexity testing. This test is used for patient testing purposes. It should not be regarded as investigational or for research. Test performed at [facility], [address], [place], [place] [id number] Brittanie Horan MD, PhD - Dog Raiser Blood Venous blood specimen / Unknown Venipuncture / Unknown 05/28/2024 7:04 AM EST 05/28/2024 9:00 AM EST Michelle Rucker MD LAB BLOOD ORDERABLES Fin al Result [facility] [address] [place] [address] * (ABNORMAL) Comprehensive metabolic panel (05/28/2024 7:04 AM EST) Sodium 140 133 - 145 mmol/L LAB CHEMISTRY METHOD 05/28/2024 10:39 AM EST [facility] Potassium 4.5 3.5 - 5.5 mmol/L LAB CHEMISTRY METHOD 05/28/2024 10:39 AM [facility] Chloride 110 96 - 110 mmol/L LAB CHEMISTRY METHOD 05/28/2024 10:39 AM [facility] CO2 22 21 - 32 mmol/L LAB CHEMISTRY METHOD 05/28/2024 10:39 AM [facility] Anion Gap 8 3 - 11 LAB CHEMISTRY METHOD 05/28/2024 10:39 AM [facility] Glucose 104(H) 70 - 100 mg/dL LAB CHEMISTRY METHOD 05/28/2024 10:39 AM [facility] BUN 31(H) 5 - 25 mg/dL LAB CHEMISTRY METHOD 05/28/2024 10:39 AM [facility] Creatinine 2.24(H) 0.70 - 1.30 mg/dL LAB CHEMISTRY METHOD 05/28/2024 10:39 AM [facility] eGFR 32(L) >=60 mL/min/1. 73m2 LAB CHEMISTRY METHOD 05/28/2024 10:39 AM [facility] Comment:Calculation based on the Chronic Kidney Disease Epidemiology Collaboration (CKD-EPI) equation refit without adjustment for race. BUN/Creatinine Ratio 13.8 LAB CHEMISTRY METHOD 05/28/2024 10:39 AM [facility] Calcium 9.8 8.5 - 10.5 mg/dL LAB CHEMISTRY METHOD 05/28/2024 10:39 AM [facility] AST (SGOT) 21 10 - 42 unit/L LAB CHEMISTRY METHOD 05/28/2024 10:39 AM [facility] ALT (SGPT) 18 10 - 60 unit/L LAB CHEMISTRY METHOD 05/28/2024 10:39 AM [facility] Alkaline Phosphatase 56 42 - 121 unit/L LAB CHEMISTRY METHOD 05/28/2024 10:39 AM [facility] Total Protein 6.6 6.0 - 8.0 g/dL LAB CHEMISTRY METHOD 05/28/2024 10:39 AM [facility] Albumin 3.1(L) 3.2 - 5.0 g/dL LAB CHEMISTRY METHOD 05/28/2024 10:39 AM [facility] Total Bilirubin 0.4 0.0 - 1.4 mg/dL LAB CHEMISTRY METHOD 05/28/2024 10:39 AM [facility] Blood Venous blood specimen / Unknown Venipuncture / Unknown 05/28/2024 7:04 AM EST 05/28/2024 9:00 AM EST us Michelle Rucker MD LAB BLOOD ORDERABLES Fin al Result [facility] [address] [place] [address], [place] [phone] * (ABNORMAL) Complete blood count (05/28/2024 7:04 AM EST) WBC 6.9 4.8 - 10.8 K/mcL LAB HEMETOLOGY METHOD 05/28/2024 10:12 AM [facility] RBC 4.60 4.50 - 5.50 M/mcL LAB HEMETOLOGY METHOD 05/28/2024 10:12 AM [facility] Hemoglobin 11.9(L) 13.5 - 17.5 g/dL LAB HEMETOLOGY METHOD 05/28/2024 10:12 AM [facility] Hematocrit 37.5(L) 42.0 - 54.0 % LAB HEMETOLOGY METHOD 05/28/2024 10:12 AM [facility] MCV 82.4 79.0 - 98.0 FL LAB HEMETOLOGY METHOD 05/28/2024 10:12 AM [facility] MCH 26.2(L) 27.0 - 32.0 pcg LAB HEMETOLOGY METHOD 05/28/2024 10:12 AM [facility] MCHC 31.7(L) 32.0 - 37.0 g/dL LAB HEMETOLOGY METHOD 05/28/2024 10:12 AM EST [facility] RDW 13.2 11.0 - 15.0 % LAB HEMETOLOGY METHOD 05/28/2024 10:12 AM [facility] Platelets 236 130 - 400 K/mcL LAB HEMETOLOGY METHOD 05/28/2024 10:12 AM EST [facility] MPV 10.7 7.0 - 11.0 FL LAB HEMETOLOGY METHOD 05/28/2024 10:12 AM EST [facility] NRBC 0.0 <1.0 % LAB HEMETOLOGY METHOD 05/28/2024 10:12 AM [facility] NRBC Absolute 0.00 <0.10 K/mcL LAB HEMETOLOGY METHOD 05/28/2024 10:12 AM [facility] Blood Venous blood specimen / Unknown Venipuncture / Unknown 05/28/2024 7:04 AM EST 05/28/2024 9:00 AM EST Michelle Rucker MD LAB BLOOD ORDERABLES Fin al Result [facility] [address] [place] [address], documented in this encounter Visit Diagnoses Diagnosis [...] as of this encounter Care Teams Hand Packer Relationship Specialty Start Date End Date Michelle Rucker MD [address] [place] [phone] PCP - General Family Medicine 05/06/24 documented as of this encounter
--- OUTSIDE RECORDS SUMMARY | 2025-04-30 12:16 | XMS_ITS | Encounter Summary ---
Author Organization [facility] Address [address] [place] [phone] Care Team Providers Care Outboard Motor Assembler Name Role Phone Michelle Rucker MD Primary Care Provider + Encounter Details Date Type Department Care Team (Late st Contact Info) Description 05/07/[address] [facility] - Main Lab 299 [place] [address] Michelle Rucker MD [address] [phone] Urinary tract infection, site not specified Social [...] reflex microscopic (05/06/2024 11:00 AM EST) Specific [place] Urine 1.015 1.003 - 1.030 LAB URINALYSIS - AUTOMATED METHOD 05/07/2024 11:00 AM [facility] pH, Urine 5.5 5.0 - 8.0 pH LAB URINALYSIS - AUTOMATED METHOD 05/07/2024 11:00 AM [facility] Leukocytes, Urine Trace(A) Negative LAB URINALYSIS - AUTOMATED METHOD 05/07/2024 11:00 AM [facility] Nitrite, Urine Negative Negative LAB URINALYSIS - AUTOMATED METHOD 05/07/2024 11:00 AM [facility] Protein, Urine 100(A) <=Trace mg/dL LAB URINALYSIS - AUTOMATED METHOD 05/07/2024 11:00 AM [facility] Glucose, Urine 500(A) Negative mg/dL LAB URINALYSIS - AUTOMATED METHOD 05/07/2024 11:00 AM [facility] Ketones, Urine Trace(A) Negative mg/dL LAB URINALYSIS - AUTOMATED METHOD 05/07/2024 11:00 AM [facility] Urobilinogen , Urine 0.2 0.2 - 1.0 mg/dL LAB URINALYSIS - AUTOMATED METHOD 05/07/2024 11:00 AM [facility] Bilirubin, Urine Negative Negative LAB URINALYSIS - AUTOMATED METHOD 05/07/2024 11:00 AM [facility] Blood, Urine Small(A) Negative LAB URINALYSIS - AUTOMATED METHOD 05/07/2024 11:00 AM [facility] RBC, Urine 2.6 0 - 4 /HPF LAB URINALYSIS - AUTOMATED METHOD 05/07/2024 11:00 AM [facility] WBC, Urine 20.3(H) 0 - 4 /HPF LAB URINALYSIS - AUTOMATED METHOD 05/07/2024 11:00 AM [facility] Squamous Epithelial, Urine 55 0 - 60 /LPF LAB URINALYSIS - AUTOMATED METHOD 05/07/2024 11:00 AM [facility] Bacteria, Urine Negative Negative /HPF [...] al Result [facility] [address] [place] [address], * (ABNORMAL) Culture urine (05/06/2024 11:00 AM [...] Susceptible Michelle Rucker MD LAB MICROBIOLOGY - [facility] AL ORDERABLES Final Result [facility] [address] [place] [address], documented in this encounter Visit Diagnoses Diagnosis Urinary tract infection, site not specified documented in this encounter Additional Health Concerns Infection Onset Date Last Indicated Resolved Time C. difficile Rule-Out 08/14/2024 08/13/20242024 11:06 AM EST MDRO (other) 12/15/2024 12/15/2024 documented as of this encounter Care Teams Outboard Motor Assembler Relationship Specialty Start Date End Date Michelle Rucker MD [address] [place] [phone] PCP - General Family Medicine 05/06/24 documented as of this encounter
--- OUTSIDE RECORDS SUMMARY | 2025-04-30 12:16 | XMS_ITS | Encounter Summary ---
Author Organization [facility] Address [address] [place] [address] Care Team Providers Care Ap Processor Name Role Phone Michelle Rucker MD Primary Care Provider + Encounter Details Date Type Department Care Team (Late st Contact Info) Description 05/18/2024 Lab Requisition [facility] - Main Lab 299 [facility] [place] [address] Michelle Rucker MD [address] [phone] Kidney transplant status; Squamous cell carcinoma of [...] developed and the performance characteristics determined by [facility]. This confirmation testing has not been cleared or approved by the FDA. The laboratory is regulated under CLIA as qualified to perform high-complexity testing. This test is used for patient testing purposes. It should not be regarded as investigational or for research. Test performed at [facility], [address], [place] [address] Brittanie Horan MD, PhD - Client Service Manager Blood Venous blood specimen / Unknown Venipuncture / Unknown 05/19/2024 5:08 AM EST 05/19/2024 9:54 AM EST Michelle Rucker MD LAB BLOOD ORDERABLES Fin al Result [facility] [address] [place] [address] * (ABNORMAL) Comprehensive metabolic panel (05/19/2024 5:08 AM EST) Sodium 141 133 - 145 mmol/L LAB CHEMISTRY METHOD 05/19/2024 10:42 AM EST [facility] Potassium 4.9 3.5 - 5.5 mmol/L LAB CHEMISTRY METHOD 05/19/2024 10:42 AM EST [facility] Chloride 109 96 - 110 mmol/L LAB CHEMISTRY METHOD 05/19/2024 10:42 AM EST [facility] CO2 26 21 - 32 mmol/L LAB CHEMISTRY METHOD 05/19/2024 10:42 AM [facility] Anion Gap 6 3 - 11 LAB CHEMISTRY METHOD 05/19/2024 10:42 AM [facility] Glucose 115(H) 70 - 100 mg/dL LAB CHEMISTRY METHOD 05/19/2024 10:42 AM [facility] BUN 28(H) 5 - 25 mg/dL LAB CHEMISTRY METHOD 05/19/2024 10:42 AM [facility] Creatinine 2.12(H) 0.70 - 1.30 mg/dL LAB CHEMISTRY METHOD 05/19/2024 10:42 AM [facility] eGFR 34(L) >=60 mL/min/1. 73m2 LAB CHEMISTRY METHOD 05/19/2024 10:42 AM [facility] Comment:Calculation based on the Chronic Kidney Disease Epidemiology Collaboration (CKD-EPI) equation refit without adjustment for race. BUN/Creatinine Ratio 13.2 LAB CHEMISTRY METHOD 05/19/2024 10:42 AM [facility] Calcium 9.6 8.5 - 10.5 mg/dL LAB CHEMISTRY METHOD 05/19/2024 10:42 AM [facility] AST (SGOT) 25 10 - 42 unit/L LAB CHEMISTRY METHOD 05/19/2024 10:42 AM [facility] ALT (SGPT) 14 10 - 60 unit/L LAB CHEMISTRY METHOD 05/19/2024 10:42 AM [facility] Alkaline Phosphatase 58 42 - 121 unit/L LAB CHEMISTRY METHOD 05/19/2024 10:42 AM [facility] Total Protein 6.8 6.0 - 8.0 g/dL LAB CHEMISTRY METHOD 05/19/2024 10:42 AM [facility] Albumin 3.1(L) 3.2 - 5.0 g/dL LAB CHEMISTRY METHOD 05/19/2024 10:42 AM [facility] Total Bilirubin 0.4 0.0 - 1.4 mg/dL LAB CHEMISTRY METHOD 05/19/2024 10:42 AM [facility] Blood Venous blood specimen / Unknown Venipuncture / Unknown 05/19/2024 5:08 AM EST 05/19/2024 9:54 AM EST us Michelle Rucker MD LAB BLOOD ORDERABLES Fin al Result [facility] [address] [place] [address], documented in this encounter Visit Diagnoses Diagnosis Kidney transplant status 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 difficile Rule-Out 08/14/2024 08/13/20242024 11:06 AM EST MDRO (other) 12/15/2024 12/15/2024 documented as of this encounter Care Teams Ap Processor Relationship Specialty Start Date End Date Michelle Rucker MD [address] [place] [phone] PCP - General Family Medicine 05/06/24 documented as of this encounter
--- OUTSIDE RECORDS SUMMARY | 2025-04-30 12:16 | XMS_ITS | Encounter Summary ---
Author Organization [facility] Address [address] [place] [phone] Care Team Providers Care Unit Operator Name Role Phone Michelle Rucker MD Primary Care Provider + Encounter Details Date Type Department Care Team (Late st Contact Info) Description 07/07/2024 Lab Requisition [facility] - Main Lab 299 [facility] [place] [address] Michelle Rucker MD [address] [address] Heart failure, unspecified (CMS/HCC V24, [...] mmol/L LAB CHEMISTRY METHOD 07/08/2024 10:15 AM [facility] Potassium 4.4 3.5 - 5.5 mmol/L LAB CHEMISTRY METHOD 07/08/2024 10:15 AM [facility] Chloride 101 96 - 110 mmol/L LAB CHEMISTRY METHOD 07/08/2024 10:15 AM [facility] CO2 27 21 - 32 mmol/L LAB CHEMISTRY METHOD 07/08/2024 10:15 AM [facility] Anion Gap 7 3 - 11 LAB CHEMISTRY METHOD 07/08/2024 10:15 AM [facility] Glucose 342(H) 70 - 100 mg/dL LAB CHEMISTRY METHOD 07/08/2024 10:15 AM [facility] BUN 33(H) 5 - 25 mg/dL LAB CHEMISTRY METHOD 07/08/2024 10:15 AM [facility] Creatinine 1.50(H) 0.70 - 1.30 mg/dL LAB CHEMISTRY METHOD 07/08/2024 10:15 AM [facility] eGFR 51(L) >=60 mL/min/1. 73m2 LAB CHEMISTRY METHOD 07/08/2024 10:15 AM [facility] Comment:Calculation based on the Chronic Kidney Disease Epidemiology Collaboration (CKD-EPI) equation refit without adjustment for race. BUN/Creatinine Ratio 22.0 LAB CHEMISTRY METHOD 07/08/2024 10:15 AM [facility] Calcium 9.3 8.5 - 10.5 mg/dL LAB CHEMISTRY METHOD 07/08/2024 10:15 AM [facility] AST (SGOT) 14 10 - 42 unit/L LAB CHEMISTRY METHOD 07/08/2024 10:15 AM [facility] ALT (SGPT) 12 10 - 60 unit/L LAB CHEMISTRY METHOD 07/08/2024 10:15 AM [facility] Alkaline Phosphatase 74 42 - 121 unit/L LAB CHEMISTRY METHOD 07/08/2024 10:15 AM [facility] Total Protein 6.8 6.0 - 8.0 g/dL LAB CHEMISTRY METHOD 07/08/2024 10:15 AM [facility] Albumin 2.6(L) 3.2 - 5.0 g/dL LAB CHEMISTRY METHOD 07/08/2024 10:15 AM [facility] Total Bilirubin 0.4 0.0 - 1.4 mg/dL LAB CHEMISTRY METHOD 07/08/2024 10:15 AM [facility] Blood Venous blood specimen / Unknown Venipuncture / Unknown 07/08/2024 5:38 AM EST 07/08/2024 8:44 AM EST us Michelle Rucker MD LAB BLOOD ORDERABLES Fin al Result [facility] [address] [place] [address], * (ABNORMAL) Complete blood count (07/08/2024 5:38 AM EST) WBC 9.1 4.8 - 10.8 K/mcL LAB HEMETOLOGY METHOD 07/08/2024 8:56 AM [facility] RBC 4.70 4.50 - 5.50 M/mcL LAB HEMETOLOGY METHOD 07/08/2024 8:56 AM [facility] Hemoglobin 12.4(L) 13.5 - 17.5 g/dL LAB HEMETOLOGY METHOD 07/08/2024 8:56 AM EST [facility] Hematocrit 39.6(L) 42.0 - 54.0 % LAB HEMETOLOGY METHOD 07/08/2024 8:56 AM [facility] MCV 83.7 79.0 - 98.0 FL LAB HEMETOLOGY METHOD 07/08/2024 8:56 AM [facility] MCH 26.2(L) 27.0 - 32.0 pcg LAB HEMETOLOGY METHOD 07/08/2024 8:56 AM EST [facility] MCHC 31.3(L) 32.0 - 37.0 g/dL LAB HEMETOLOGY METHOD 07/08/2024 8:56 AM [facility] RDW 15.8(H) 11.0 - 15.0 % LAB HEMETOLOGY METHOD 07/08/2024 8:56 AM [facility] Platelets 252 130 - 400 K/mcL LAB HEMETOLOGY METHOD 07/08/2024 8:56 AM EST [facility] MPV 11.3(H) 7.0 - 11.0 FL LAB HEMETOLOGY METHOD 07/08/2024 8:56 AM EST [facility] NRBC 0.0 <1.0 % LAB HEMETOLOGY METHOD 07/08/2024 8:56 AM [facility] NRBC Absolute 0.00 <0.10 K/mcL LAB HEMETOLOGY METHOD 07/08/2024 8:56 AM [facility] Blood Venous blood specimen / Unknown Venipuncture / Unknown 07/08/2024 5:38 AM EST 07/08/2024 8:44 AM EST us Michelle Rucker MD LAB BLOOD ORDERABLES Fin al Result [facility] [address] [place] [address], documented in this encounter Visit Diagnoses Diagnosis Heart failure, unspecified ([facility] V24, [facility] V28) Heart failure, unspecified Vitamin D deficiency, unspecified Hyperlipidemia, unspecified Anemia, unspecified Type 1 diabetes mellitus with diabetic neuropathy, unspecified ([facility] V24, [facility] V28) 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 difficile Rule-Out 08/14/2024 08/13/20242024 11:06 AM EST MDRO (other) 12/15/2024 12/15/2024 documented as of this encounter Care Teams Unit Operator Relationship Specialty Start Date End Date Michelle Rucker MD [address] [phone] PCP - General Family Medicine 05/06/24 documented as of this encounter
--- OUTSIDE RECORDS SUMMARY | 2025-04-30 12:16 | XMS_ITS | Encounter Summary ---
Author Organization [facility] Address [address] [place] [phone] Care Team Providers Care Yard Goods Salesperson Name Role Phone Michelle Rucker MD Primary Care Provider + Encounter Details Date Type Department Care Team (Late st Contact Info) Description 07/03/2024 Lab Requisition [facility] - Main Lab 299 [facility] [place] [address] Michelle Rucker MD [address] [address] Encounter for therapeutic drug level [...] and the performance characteristics determined by [facility]. This confirmation testing has not been cleared or approved by the FDA. The laboratory is regulated under CLIA as qualified to perform high-complexity testing. This test is used for patient testing purposes. It should not be regarded as investigational or for research. Test performed at [facility], [address], [place] [address] Brittanie Horan MD, PhD - Air Analysis Engineering Technician Blood Venous blood specimen / Unknown Venipuncture / Unknown 07/03/2024 5:42 AM EST 07/03/2024 9:25 AM EST Michelle Rucker MD LAB BLOOD ORDERABLES Fin al Result [facility] [address] [place] [address] documented in this encounter Visit Diagnoses Diagnosis Encounter for therapeutic drug level monitoring documented in this encounter Additional Health Concerns Infection Onset Date Last Indicated Resolved Time C. difficile Rule-Out 08/14/2024 08/13/20242024 11:06 AM EST MDRO (other) 12/15/2024 12/15/2024 documented as of this encounter Care Teams Yard Goods Salesperson Relationship Specialty Start Date End Date Michelle Rucker MD 9 [place] [address] PCP - General Family Medicine 05/06/24 documented as of this encounter
--- OUTSIDE RECORDS SUMMARY | 2025-04-30 12:16 | XMS_ITS | Encounter Summary ---
Author Organization [facility] Address [id number] [place] [phone] Care Team Providers Care Insurance Salesman Name Role Phone Michelle Rucker MD Primary Care Provider + Encounter Details Date Type Department Care Team (Late st Contact Info) Description 05/13/2024 Lab Requisition [facility] - Main Lab 299 [facility] [place] [address] Michelle Rucker MD [address] [phone] Heart failure, unspecified (CMS/HCC V24, CMS/HCC V28); [...] mmol/L LAB CHEMISTRY METHOD 05/13/2024 12:10 PM [facility] Potassium 4.6 3.5 - 5.5 mmol/L LAB CHEMISTRY METHOD 05/13/2024 12:10 PM [facility] Chloride 105 96 - 110 mmol/L LAB CHEMISTRY METHOD 05/13/2024 12:10 PM [facility] CO2 23 21 - 32 mmol/L LAB CHEMISTRY METHOD 05/13/2024 12:10 PM [facility] Anion Gap 10 3 - 11 LAB CHEMISTRY METHOD 05/13/2024 12:10 PM [facility] Glucose 144(H) 70 - 100 mg/dL LAB CHEMISTRY METHOD 05/13/2024 12:10 PM [facility] BUN 30(H) 5 - 25 mg/dL LAB CHEMISTRY METHOD 05/13/2024 12:10 PM [facility] Creatinine 2.06(H) 0.70 - 1.30 mg/dL LAB CHEMISTRY METHOD 05/13/2024 12:10 PM [facility] eGFR 35(L) >=60 mL/min/1. 73m2 LAB CHEMISTRY METHOD 05/13/2024 12:10 PM [facility] Comment:Calculation based on the Chronic Kidney Disease Epidemiology Collaboration (CKD-EPI) equation refit without adjustment for race. BUN/Creatinine Ratio 14.6 LAB CHEMISTRY METHOD 05/13/2024 12:10 PM [facility] Calcium 9.8 8.5 - 10.5 mg/dL LAB CHEMISTRY METHOD 05/13/2024 12:10 PM [facility] AST (SGOT) 14 10 - 42 unit/L LAB CHEMISTRY METHOD 05/13/2024 12:10 PM [facility] ALT (SGPT) 14 10 - 60 unit/L LAB CHEMISTRY METHOD 05/13/2024 12:10 PM [facility] Alkaline Phosphatase 54 42 - 121 unit/L LAB CHEMISTRY METHOD 05/13/2024 12:10 PM [facility] Total Protein 6.5 6.0 - 8.0 g/dL LAB CHEMISTRY METHOD 05/13/2024 12:10 PM [facility] Albumin 2.8(L) 3.2 - 5.0 g/dL LAB CHEMISTRY METHOD 05/13/2024 12:10 PM [facility] Total Bilirubin 0.3 0.0 - 1.4 mg/dL LAB CHEMISTRY METHOD 05/13/2024 12:10 PM [facility] Blood Venous blood specimen / Unknown Venipuncture / Unknown 05/13/2024 6:07 AM EST 05/13/2024 8:50 AM EST Michelle Rucker MD LAB BLOOD ORDERABLES Fin al Result [facility] [address] [place] [address], * (ABNORMAL) Complete blood count (05/13/2024 6:07 AM EST) WBC 8.3 4.8 - 10.8 K/mcL LAB HEMETOLOGY METHOD 05/13/2024 10:51 AM [facility] RBC 4.10(L) 4.50 - 5.50 M/mcL LAB HEMETOLOGY METHOD 05/13/2024 10:51 AM [facility] Hemoglobin 10.8(L) 13.5 - 17.5 g/dL LAB HEMETOLOGY METHOD 05/13/2024 10:51 AM [facility] Hematocrit 34.5(L) 42.0 - 54.0 % LAB HEMETOLOGY METHOD 05/13/2024 10:51 AM [facility] MCV 85.2 79.0 - 98.0 FL LAB HEMETOLOGY METHOD 05/13/2024 10:51 AM [facility] MCH 26.7(L) 27.0 - 32.0 pcg LAB HEMETOLOGY METHOD 05/13/2024 10:51 AM [facility] MCHC 31.3(L) 32.0 - 37.0 g/dL LAB HEMETOLOGY METHOD 05/13/2024 10:51 AM [facility] RDW 13.0 11.0 - 15.0 % LAB HEMETOLOGY METHOD 05/13/2024 10:51 AM [facility] Platelets 250 130 - 400 K/mcL LAB HEMETOLOGY METHOD 05/13/2024 10:51 AM [facility] MPV 10.7 7.0 - 11.0 FL LAB HEMETOLOGY METHOD 05/13/2024 10:51 AM [facility] NRBC 0.0 <1.0 % LAB HEMETOLOGY METHOD 05/13/2024 10:51 AM [facility] NRBC Absolute 0.00 <0.10 K/mcL LAB HEMETOLOGY METHOD 05/13/2024 10:51 AM [facility] Blood Venous blood specimen / Unknown Venipuncture / Unknown 05/13/2024 6:07 AM EST 05/13/2024 8:50 AM EST us Michelle Rucker MD LAB BLOOD ORDERABLES Fin al Result [facility] [address] [place] [address], documented in this encounter Visit Diagnoses Diagnosis Heart failure, unspecified (CMS/HCC V24, [facility] V28) Heart failure, unspecified Type 1 diabetes mellitus with diabetic neuropathy, unspecified ([facility] V24, [facility] V28) Unspecified sequelae of unspecified cerebrovascular disease Kidney transplant status 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 difficile Rule-Out 08/14/2024 08/13/20242024 11:06 AM EST MDRO (other) 12/15/2024 12/15/2024 documented as of this encounter Care Teams Insurance Salesman Relationship Specialty Start Date End Date Michelle Rucker MD [address] [place] [address] PCP - General Family Medicine 05/06/24 documented as of this encounter
--- OUTSIDE RECORDS SUMMARY | 2025-04-30 12:16 | XMS_ITS | Encounter Summary ---
Author Organization [facility] Address [address] [place] [phone] Care Team Providers Care Nail Professional Name Role Phone Michelle Rucker MD Primary Care Provider + Encounter Details Date Type Department Care Team (Late st Contact Info) Description 05/08/2024 Lab Requisition [facility] - Main Lab 299 [facility] [place] [address] Michelle Rucker MD [address] [phone] Kidney transplant status; Squamous cell carcinoma of [...] or for research. Test performed at [facility], [address], [place] [address] Brittanie Horan MD, PhD - Educational Assistant Blood Venous blood specimen / Unknown Venipuncture / Unknown 05/11/2024 6:37 AM EST 05/11/2024 9:28 AM EST Michelle Rucker MD LAB BLOOD ORDERABLES Fin al Result [facility] [address] [place] [address] * (ABNORMAL) Comprehensive metabolic panel (05/11/2024 6:37 [...] mmol/L LAB CHEMISTRY METHOD 05/11/2024 10:[address] [facility] Anion Gap 7 3 - 11 LAB CHEMISTRY METHOD 05/11/2024 10:[address] [facility] Glucose 113(H) 70 - 100 mg/dL LAB CHEMISTRY METHOD 05/11/2024 10:[address] [facility] BUN 32(H) 5 - 25 mg/dL LAB CHEMISTRY METHOD 05/11/2024 10:[address] [facility] Creatinine 2.00(H) 0.70 - 1.30 mg/dL LAB CHEMISTRY METHOD 05/11/2024 10:[address] [facility] eGFR 36(L) >=60 mL/min/1. 73m2 LAB CHEMISTRY METHOD 05/11/2024 10:[address] [facility] Comment:Calculation based on the Chronic Kidney Disease Epidemiology Collaboration (CKD-EPI) equation refit without adjustment for race. BUN/Creatinine Ratio 16.0 LAB CHEMISTRY METHOD 05/11/2024 10:[address] [facility] Calcium 10.0 8.5 - 10.5 mg/dL LAB CHEMISTRY METHOD 05/11/2024 10:[address] [facility] AST (SGOT) 18 10 - 42 unit/L LAB CHEMISTRY METHOD 05/11/2024 10:[address] [facility] ALT (SGPT) 14 10 - 60 unit/L LAB CHEMISTRY METHOD 05/11/2024 10:[address] [facility] Alkaline Phosphatase 56 42 - 121 unit/L LAB CHEMISTRY METHOD 05/11/2024 10:[address] [facility] Total Protein 6.9 6.0 - 8.0 g/dL LAB CHEMISTRY METHOD 05/11/2024 10:[address] [facility] Albumin 2.9(L) 3.2 - 5.0 g/dL LAB CHEMISTRY METHOD 05/11/2024 10:[address] [facility] Total Bilirubin 0.3 0.0 - 1.4 mg/dL LAB CHEMISTRY METHOD 05/11/2024 10:[address] [facility] Blood Venous blood specimen / Unknown Venipuncture / Unknown 05/11/2024 6:37 AM EST 05/11/2024 9:28 AM EST us Michelle Rucker MD LAB BLOOD ORDERABLES Fin al Result [facility] ([facility]) 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 difficile Rule-Out 08/14/2024 08/13/20242024 11:06 AM EST MDRO (other) 12/15/2024 12/15/2024 documented as of this encounter Care Teams Nail Professional Relationship Specialty Start Date End Date Michelle Rucker MD [address] [place] [id number] PCP - General Family Medicine 05/06/24 documented as of this encounter
--- OUTSIDE RECORDS SUMMARY | 2025-04-30 12:16 | XMS_ITS | Encounter Summary ---
Author Organization [facility], Address [address] [place] [address] Phone Care Team Providers Care Welder Setter Electron Beam Machine Name Role Phone Ebony Lintonher Sloane NATHAN Primary Care Provider + Reason for Visit * Reason Comments Med Refill Encounter Details Date Type Department Care Team (Late st Contact Info) Description 05/12/2020 Refill [facility] [address] [place] [address] Denise Isbell PA [address] [place] [address] [place] [address] Social History Tobacco Use Types Packs/Day Years [...] [facility] [address] [place] [phone] Andrey Phan MD [address] [place] [address] documented as of this encounter Visit Diagnoses Not on filedocumented in this encounter Care Teams Welder Setter Electron Beam Machine Relationship Specialty Start Date End Date Tennille Linton NP [address] [place] [phone] PCP - General Nurse Practitioner 08/07/23 documented as of this encounter
--- OUTSIDE RECORDS SUMMARY | 2025-04-30 12:16 | XMS_ITS | Encounter Summary ---
Author Organization [facility] Address [address] [place] [address] Care Team Providers Care School Supervisor Name Role Phone Michelle Rucker MD Primary Care Provider + Encounter Details Date Type Department Care Team (Late st Contact Info) Description 06/03/2024 Lab Requisition [facility] - Main Lab 299 [facility] [place] [address] Michelle Rucker MD [address] [phone] Local infection of the skin and subcutaneous [...] Comprehensive metabolic panel (06/03/2024 5:20 AM EST) [facility] Signature Sodium 139 133 - 145 mmol/L LAB CHEMISTRY METHOD 06/03/2024 11:50 AM EST [facility] Potassium 4.2 3.5 - 5.5 mmol/L LAB CHEMISTRY METHOD 06/03/2024 11:50 AM [facility] Chloride 106 96 - 110 mmol/L LAB CHEMISTRY METHOD 06/03/2024 11:50 AM [facility] CO2 24 21 - 32 mmol/L LAB CHEMISTRY METHOD 06/03/2024 11:50 AM [facility] Anion Gap 9 3 - 11 LAB CHEMISTRY METHOD 06/03/2024 11:50 AM [facility] Glucose 59(L) 70 - 100 mg/dL LAB CHEMISTRY METHOD 06/03/2024 11:50 AM [facility] BUN 34(H) 5 - 25 mg/dL LAB CHEMISTRY METHOD 06/03/2024 11:50 AM [facility] Creatinine 2.50(H) 0.70 - 1.30 mg/dL LAB CHEMISTRY METHOD 06/03/2024 11:50 AM [facility] eGFR 28(L) >=60 mL/min/1. 73m2 LAB CHEMISTRY METHOD 06/03/2024 11:50 AM [facility] Comment:Calculation based on the Chronic Kidney Disease Epidemiology Collaboration (CKD-EPI) equation refit without adjustment for race. BUN/Creatinine Ratio 13.6 LAB CHEMISTRY METHOD 06/03/2024 11:50 AM [facility] Calcium 9.9 8.5 - 10.5 mg/dL LAB CHEMISTRY METHOD 06/03/2024 11:50 AM [facility] AST (SGOT) 15 10 - 42 unit/L LAB CHEMISTRY METHOD 06/03/2024 11:50 AM [facility] ALT (SGPT) 10 10 - 60 unit/L LAB CHEMISTRY METHOD 06/03/2024 11:50 AM [facility] Alkaline Phosphatase 56 42 - 121 unit/L LAB CHEMISTRY METHOD 06/03/2024 11:50 AM [facility] Total Protein 6.6 6.0 - 8.0 g/dL LAB CHEMISTRY METHOD 06/03/2024 11:50 AM EST [facility] Albumin 3.1(L) 3.2 - 5.0 g/dL LAB CHEMISTRY METHOD 06/03/2024 11:50 AM [facility] Total Bilirubin 0.4 0.0 - 1.4 mg/dL LAB CHEMISTRY METHOD 06/03/2024 11:50 AM [facility] Blood Venous blood specimen / Unknown Venipuncture / Unknown 06/03/2024 5:20 AM EST 06/03/2024 10:18 AM EST us Michelle Rucker MD LAB BLOOD ORDERABLES Fin al Result [facility] [address] [place] [address], [place] [phone] * (ABNORMAL) Complete blood count (06/03/2024 5:20 AM EST) WBC 4.9 4.8 - 10.8 K/mcL LAB HEMETOLOGY METHOD 06/03/2024 11:05 AM [facility] RBC 4.40(L) 4.50 - 5.50 M/mcL LAB HEMETOLOGY METHOD 06/03/2024 11:05 AM [facility] Hemoglobin 11.4(L) 13.5 - 17.5 g/dL LAB HEMETOLOGY METHOD 06/03/2024 11:05 AM [facility] Hematocrit 36.6(L) 42.0 - 54.0 % LAB HEMETOLOGY METHOD 06/03/2024 11:05 AM [facility] MCV 83.9 79.0 - 98.0 FL LAB HEMETOLOGY METHOD 06/03/2024 11:05 AM [facility] MCH 26.1(L) 27.0 - 32.0 pcg LAB HEMETOLOGY METHOD 06/03/2024 11:05 AM [facility] MCHC 31.1(L) 32.0 - 37.0 g/dL LAB HEMETOLOGY METHOD 06/03/2024 11:05 AM EST [facility] RDW 13.9 11.0 - 15.0 % LAB HEMETOLOGY METHOD 06/03/2024 11:05 AM [facility] Platelets 157 130 - 400 K/mcL LAB HEMETOLOGY METHOD 06/03/2024 11:05 AM [facility] MPV 11.5(H) 7.0 - 11.0 FL LAB HEMETOLOGY METHOD 06/03/2024 11:05 AM EST [facility] NRBC 0.0 <1.0 % LAB HEMETOLOGY METHOD 06/03/2024 11:05 AM [facility] NRBC Absolute 0.00 <0.10 K/mcL LAB HEMETOLOGY METHOD 06/03/2024 11:05 AM [facility] Blood Venous blood specimen / Unknown Venipuncture / Unknown 06/03/2024 5:20 AM EST 06/03/2024 10:18 AM EST Michelle Rucker MD LAB BLOOD ORDERABLES Fin al Result [facility] [address] [place] [address], documented in this encounter Visit Diagnoses Diagnosis Local infection of the skin and subcutaneous tissue, unspecified documented in this encounter Additional Health Concerns Infection Onset Date Last Indicated Resolved Time C. difficile Rule-Out 08/14/2024 08/13/20242024 11:06 AM EST MDRO (other) 12/15/2024 12/15/2024 documented as of this encounter Care Teams School Supervisor Relationship Specialty Start Date End Date Michelle Rucker MD [address] [address] PCP - General Family Medicine 05/06/24 documented as of this encounter
--- OUTSIDE RECORDS SUMMARY | 2025-04-30 12:16 | XMS_ITS | Encounter Summary ---
Author Organization [facility] Address [address] [place] [phone] Care Team Providers Care Dixonac Operator Name Role Phone Michelle Rucker MD Primary Care Provider + Encounter Details Date Type Department Care Team (Late st Contact Info) Description 07/02/2024 Lab Requisition [facility] - Main Lab 299 [facility] [place] [address] Michelle Rucker MD [address] [address] Heart failure, unspecified (CMS/HCC V24, [...] 25 hydroxy (07/02/2024 7:17 AM EST) Pathologist [facility] Vit D, 25-Hydroxy 48.1 30.0 - 80.0 ng/mL LAB CHEMISTRY METHOD 07/02/2024 12:28 PM EST [facility] Blood Venous blood specimen / Unknown Venipuncture / Unknown 07/02/2024 7:17 AM EST 07/02/2024 9:17 AM EST Michelle Rucker MD LAB BLOOD ORDERABLES Fin al Result Performing Organization Address City/[facility]/ZIP Co de Phone Number [facility] [address] [place] [address], [place] [phone] * Vitamin B12 (07/02/2024 7:17 AM EST) [facility] Vitamin B-12 757 250 - 900 pcg/mL LAB CHEMISTRY METHOD 07/02/2024 12:08 PM EST [facility] Blood Venous blood specimen / Unknown Venipuncture / Unknown 07/02/2024 7:17 AM EST 07/02/2024 9:17 AM EST Michelle Rucker MD LAB BLOOD ORDERABLES Fin al Result [facility] [address] [place] [address], [place] [phone] * Folate (07/02/2024 7:17 AM EST) Pathologist [facility] Folate 6.1 2.8 - 17.0 ng/ml LAB CHEMISTRY METHOD 07/02/2024 12:00 PM EST [facility] Blood Venous blood specimen / Unknown Venipuncture / Unknown 07/02/2024 7:17 AM EST 07/02/2024 9:17 AM EST Michelle Rucker MD LAB BLOOD ORDERABLES Fin al Result Performing Organization Address City/[facility]/ZIP Co de Phone Number [facility] [address] [place] [address], * Magnesium (07/02/2024 7:17 AM EST) Magnesium 2.2 1.9 - 2.6 mg/dL LAB CHEMISTRY METHOD 07/02/2024 11:44 AM EST [facility] Blood Venous blood specimen / Unknown Venipuncture / Unknown 07/02/2024 7:17 AM EST 07/02/2024 9:17 AM EST Michelle Rucker MD LAB BLOOD ORDERABLES Fin al Result Performing Organization Address [facility] Co de Phone Number [facility] [address] [place] [address], * (ABNORMAL) Thyroid stimulating hormone (07/02/2024 7:17 AM EST) TSH 6.64(H) 0.40 - 4.00 mcIU/mL LAB CHEMISTRY METHOD 07/02/2024 12:29 PM EST [facility] Blood Venous blood specimen / Unknown Venipuncture / Unknown 07/02/2024 7:17 AM EST 07/02/2024 9:17 AM EST Michelle Rucker MD LAB BLOOD ORDERABLES Fin al Result Performing Organization Address City/[facility]/ZIP Co de Phone Number [facility] [address] [place] [address], [place] [phone] * (ABNORMAL) Hemoglobin A1c (07/02/2024 7:17 AM EST) Hemoglobin A1C 8.4(H) <6.5 % LAB CHEMISTRY METHOD 07/02/2024 1:47 PM [facility] Mean Bld Glu Estim. 194 mg/dL LAB CHEMISTRY METHOD 07/02/2024 1:47 PM [facility] Blood Venous blood specimen / Unknown Venipuncture / Unknown 07/02/2024 7:17 AM EST 07/02/2024 9:17 AM EST us Michelle Rucker MD LAB BLOOD ORDERABLES Fin al Result [facility] [address] [place] [address], [place] [phone] * (ABNORMAL) Comprehensive metabolic panel (07/02/2024 7:17 AM EST) Sodium 130(L) 133 - 145 mmol/L LAB CHEMISTRY METHOD 07/02/2024 12:14 PM [facility] Potassium 4.8 3.5 - 5.5 mmol/L LAB CHEMISTRY METHOD 07/02/2024 12:14 PM [facility] Chloride 96 96 - 110 mmol/L LAB CHEMISTRY METHOD 07/02/2024 12:14 PM [facility] CO2 26 21 - 32 mmol/L LAB CHEMISTRY METHOD 07/02/2024 12:14 PM [facility] Anion Gap 8 3 - 11 LAB CHEMISTRY METHOD 07/02/2024 12:14 PM [facility] Glucose 452(HH) 70 - 100 mg/dL LAB CHEMISTRY METHOD 07/02/2024 12:14 PM [facility] BUN 31(H) 5 - 25 mg/dL LAB CHEMISTRY METHOD 07/02/2024 12:14 PM [facility] Creatinine 1.53(H) 0.70 - 1.30 mg/dL LAB CHEMISTRY METHOD 07/02/2024 12:14 PM [facility] eGFR 50(L) >=60 mL/min/1. 73m2 LAB CHEMISTRY METHOD 07/02/2024 12:14 PM [facility] Comment:Calculation based on the Chronic Kidney Disease Epidemiology Collaboration (CKD-EPI) equation refit without adjustment for race. BUN/Creatinine Ratio 20.3 LAB CHEMISTRY METHOD 07/02/2024 12:14 PM [facility] Calcium 9.8 8.5 - 10.5 mg/dL LAB CHEMISTRY METHOD 07/02/2024 12:14 PM [facility] AST (SGOT) 16 10 - 42 unit/L LAB CHEMISTRY METHOD 07/02/2024 12:14 PM [facility] ALT (SGPT) 13 10 - 60 unit/L LAB CHEMISTRY METHOD 07/02/2024 12:14 PM [facility] Alkaline Phosphatase 84 42 - 121 unit/L LAB CHEMISTRY METHOD 07/02/2024 12:14 PM [facility] Total Protein 6.7 6.0 - 8.0 g/dL LAB CHEMISTRY METHOD 07/02/2024 12:14 PM [facility] Albumin 2.5(L) 3.2 - 5.0 g/dL LAB CHEMISTRY METHOD 07/02/2024 12:14 PM [facility] Total Bilirubin 0.5 0.0 - 1.4 mg/dL LAB CHEMISTRY METHOD 07/02/2024 12:14 PM [facility] Blood Venous blood specimen / Unknown Venipuncture / Unknown 07/02/2024 7:17 AM EST 07/02/2024 9:17 AM EST us Michelle Rucker MD LAB BLOOD ORDERABLES Fin al Result [facility] [address] [place] [address], * (ABNORMAL) Complete blood count (07/02/2024 7:17 AM EST) WBC 9.2 4.8 - 10.8 K/mcL LAB HEMETOLOGY METHOD 07/02/2024 10:51 AM [facility] RBC 4.50 4.50 - 5.50 M/mcL LAB HEMETOLOGY METHOD 07/02/2024 10:51 AM [facility] Hemoglobin 11.5(L) 13.5 - 17.5 g/dL LAB HEMETOLOGY METHOD 07/02/2024 10:51 AM [facility] Hematocrit 37.3(L) 42.0 - 54.0 % LAB HEMETOLOGY METHOD 07/02/2024 10:51 AM [facility] MCV 83.6 79.0 - 98.0 FL LAB HEMETOLOGY METHOD 07/02/2024 10:51 AM [facility] MCH 25.8(L) 27.0 - 32.0 pcg LAB HEMETOLOGY METHOD 07/02/2024 10:51 AM [facility] MCHC 30.8(L) 32.0 - 37.0 g/dL LAB HEMETOLOGY METHOD 07/02/2024 10:51 AM [facility] RDW 15.3(H) 11.0 - 15.0 % LAB HEMETOLOGY METHOD 07/02/2024 10:51 AM [facility] Platelets 322 130 - 400 K/mcL LAB HEMETOLOGY METHOD 07/02/2024 10:51 AM [facility] MPV 10.9 7.0 - 11.0 FL LAB HEMETOLOGY METHOD 07/02/2024 10:51 AM [facility] NRBC 0.0 <1.0 % LAB HEMETOLOGY METHOD 07/02/2024 10:51 AM [facility] NRBC Absolute 0.00 <0.10 K/mcL LAB HEMETOLOGY METHOD 07/02/2024 10:51 AM [facility] Blood Venous blood specimen / Unknown Venipuncture / Unknown 07/02/2024 7:17 AM EST 07/02/2024 9:17 AM EST Michelle Rucker MD LAB BLOOD ORDERABLES Fin al Result [facility] ([facility]) [facility] [address] [place] [address], documented in this encounter Visit Diagnoses Diagnosis Heart failure, unspecified (CMS/HCC V24, [facility] V28) Heart failure, unspecified Vitamin D deficiency, unspecified Hyperlipidemia, unspecified Anemia, unspecified Type 1 diabetes mellitus with diabetic neuropathy, unspecified (CMS/HCC V24, [facility] V28) 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 difficile Rule-Out 08/14/2024 08/13/20242024 11:06 AM EST MDRO (other) 12/15/2024 12/15/2024 documented as of this encounter Care Teams Dixonac Operator Relationship Specialty Start Date End Date Michelle Rucker MD [address] [place] [phone] PCP - General Family Medicine 05/06/24 documented as of this encounter
--- OUTSIDE RECORDS SUMMARY | 2025-04-30 12:16 | XMS_ITS | Encounter Summary ---
Author Organization [facility] Address [address] [place] [phone] Care Team Providers Care Mobile Therapist Name Role Phone Michelle Rucker MD Primary Care Provider + Encounter Details Date Type Department Care Team (Late st Contact Info) Description 06/13/2024 Lab Requisition [facility] - Main Lab [address] [facility] [place] [address] Michelle Rucker MD [address] [phone] Hyperlipidemia, unspecified; Heart failure, unspecified (CMS/HCC V24, [...] mmol/L LAB CHEMISTRY METHOD 06/15/2024 1:[address] [facility] Potassium 4.6 3.5 - 5.5 mmol/L LAB CHEMISTRY METHOD 06/15/2024 1:[address] [facility] Chloride 106 96 - 110 mmol/L LAB CHEMISTRY METHOD 06/15/2024 1:[address] [facility] CO2 24 21 - 32 mmol/L LAB CHEMISTRY METHOD 06/15/2024 1:[address] [facility] Anion Gap 6 3 - 11 LAB CHEMISTRY METHOD 06/15/2024 1:[address] [facility] Glucose 304(H) 70 - 100 mg/dL LAB CHEMISTRY METHOD 06/15/2024 1:[address] [facility] BUN 32(H) 5 - 25 mg/dL LAB CHEMISTRY METHOD 06/15/2024 1:[address] [facility] Creatinine 1.82(H) 0.70 - 1.30 mg/dL LAB CHEMISTRY METHOD 06/15/2024 1:[address] [facility] eGFR 40(L) >=60 mL/min/1. 73m2 LAB CHEMISTRY METHOD 06/15/2024 1:[address] [facility] Comment:Calculation based on the Chronic Kidney Disease Epidemiology Collaboration (CKD-EPI) equation refit without adjustment for race. BUN/Creatinine Ratio 17.6 LAB CHEMISTRY METHOD 06/15/2024 1:[address] [facility] Calcium 10.1 8.5 - 10.5 mg/dL LAB CHEMISTRY METHOD 06/15/2024 1:[address] [facility] Blood Venous blood specimen / Unknown Venipuncture / Unknown 06/15/2024 6:08 AM EST 06/15/2024 11:15 AM EST Michelle Rucker MD LAB BLOOD ORDERABLES Fin al Result [facility] 299 [place] [address], * (ABNORMAL) Complete blood count (06/15/2024 6:08 AM EST) WBC 7.4 4.8 - 10.8 K/mcL LAB HEMETOLOGY METHOD 06/15/2024 1:[address] [facility] RBC 5.20 4.50 - 5.50 M/mcL LAB HEMETOLOGY METHOD 06/15/2024 1:[address] [facility] Hemoglobin 13.1(L) 13.5 - 17.5 g/dL LAB HEMETOLOGY METHOD 06/15/2024 1:[address] [facility] Hematocrit 42.1 42.0 - 54.0 % LAB HEMETOLOGY METHOD 06/15/2024 1:[address] [facility] MCV 81.6 79.0 - 98.0 FL LAB HEMETOLOGY METHOD 06/15/2024 1:[address] [facility] MCH 25.4(L) 27.0 - 32.0 pcg LAB HEMETOLOGY METHOD 06/15/2024 1:[address] [facility] MCHC 31.1(L) 32.0 - 37.0 g/dL LAB HEMETOLOGY METHOD 06/15/2024 1:[address] [facility] RDW 14.0 11.0 - 15.0 % LAB HEMETOLOGY METHOD 06/15/2024 1:[address] [facility] Platelets 219 130 - 400 K/mcL LAB HEMETOLOGY METHOD 06/15/2024 1:[address] [facility] MPV 11.4(H) 7.0 - 11.0 FL LAB HEMETOLOGY METHOD 06/15/2024 1:05 PM EST [facility] NRBC 0.0 <1.0 % LAB HEMETOLOGY METHOD 06/15/2024 1:05 PM EST [facility] NRBC Absolute 0.00 <0.10 K/mcL LAB HEMETOLOGY METHOD 06/15/2024 1:05 PM EST [facility] Blood Venous blood specimen / Unknown Venipuncture / Unknown 06/15/2024 6:08 AM EST 06/15/2024 11:15 AM EST us Michelle Rucker MD LAB BLOOD ORDERABLES Fin al Result [facility] [address] [place] [address], documented in this encounter Visit Diagnoses Diagnosis [...] as of this encounter Care Teams Mobile Therapist Relationship Specialty Start Date End Date Michelle Rucker MD [address] [place] [phone] PCP - General Family Medicine 05/06/24 documented as of this encounter
--- OUTSIDE RECORDS SUMMARY | 2025-04-30 12:16 | XMS_ITS | Encounter Summary ---
Author Organization [facility] Address [address] [address] Phone Care Team Providers Care Shipper And Receiving Name Role Phone Tennille Linton NP Primary Care Provider + Encounter Details Date Type Department Care Team (Late st Contact Info) Description 12/31/2024 Documentation Only [facility] [place], [address] [place] [address] [place] [address] [place] [phone] Social History Tobacco Use Types Packs/Day [...] Visit [facility] [place] [address] [place] [address] Andrey Phan MD [address] [place] [address] documented as of this encounter Visit Diagnoses Not on filedocumented in this encounter Care Teams Shipper And Receiving Relationship Specialty Start Date End Date Tennille Linton NP [address] [place] [phone] PCP - General Nurse Practitioner 08/07/23 documented as of this encounter
--- OUTSIDE RECORDS SUMMARY | 2025-04-30 12:16 | XMS_ITS | Encounter Summary ---
Author Organization [facility] Address [address] [address] Phone Care Team Providers Care Asset Protection Officer Name Role Phone Tennille Linton NP Primary Care Provider + Encounter Details Date Type Department Care Team (Late st Contact Info) Description 03/16/2025 Documentation Only [facility] [place], [address] [place] [address] [place] [address] [place] [phone] Social History Tobacco Use Types Packs/Day [...] Visit [facility] [place] [address] [place] [address] Andrey Phan MD [address] [facility] [place] [address] documented as of this encounter Visit Diagnoses Not on filedocumented in this encounter Care Teams Asset Protection Officer Relationship Specialty Start Date End Date Tennille Linton NP [address] [place] [phone] PCP - General Nurse Practitioner 08/07/23 documented as of this encounter
--- OUTSIDE RECORDS SUMMARY | 2025-04-30 12:16 | XMS_ITS | Encounter Summary ---
Author Organization [facility] Address [address] [place] [phone] Care Team Providers Care Distribution Center Supervisor Name Role Phone Michelle Rucker MD Primary Care Provider + Encounter Details Date Type Department Care Team (Late st Contact Info) Description 06/19/2024 Lab Requisition [facility] - Main Lab [address] [facility] [place] [address] Michelle Rucker MD [address] [phone] Hyperlipidemia, unspecified; Heart failure, unspecified (CMS/HCC V24, [...] documented as of this encounter Care Teams Distribution Center Supervisor Relationship Specialty Start Date End Date Michelle Rucker MD [address] [phone] PCP - General Family Medicine 05/06/24 documented as of this encounter
--- OUTSIDE RECORDS SUMMARY | 2025-04-30 12:16 | XMS_ITS | Encounter Summary ---
Author Organization [facility] [place], Address [address] [address] Phone Care Team Providers Care Assistant Professor Of Criminal Justice Name Role Phone Tennille Linton Sloane NATHAN Primary Care Provider + Reason for Visit * Reason Comments Med Refill Encounter Details Date Type Department Care Team (Late st Contact Info) Description 06/13/2020 Refill [facility] [address] [place] [address] Denise Isbell PA [address] [place] [address] [place] [address] Social History Tobacco Use Types [...] Visit [facility] [place] [address] [phone] Andrey Phan MD [address] [facility] [place] [phone] documented as of this encounter Visit Diagnoses Not on filedocumented in this encounter Care Teams Assistant Professor Of Criminal Justice Relationship Specialty Start Date End Date Tennille Linton NP [address] [place] [phone] PCP - General Nurse Practitioner 08/07/23 documented as of this encounter
--- OUTSIDE RECORDS SUMMARY | 2025-04-30 12:16 | XMS_ITS | Encounter Summary ---
Author Organization [facility] Address [address] [place] [address] Care Team Providers Care Hat Presser Name Role Phone Michelle Rucker MD Primary Care Provider + Encounter Details Date Type Department Care Team (Late st Contact Info) Description 05/08/2024 Lab Requisition [facility] 299 [place] [address] Michelle Rucker MD [address] [phone] Kidney transplant status; Squamous cell carcinoma of [...] LAB CHEMISTRY METHOD 05/08/2024 9:21 AM EST [facility] Potassium 4.4 3.5 - 5.5 mmol/L LAB CHEMISTRY METHOD 05/08/2024 9:21 AM [facility] Chloride 105 96 - 110 mmol/L LAB CHEMISTRY METHOD 05/08/2024 9:21 AM [facility] CO2 23 21 - 32 mmol/L LAB CHEMISTRY METHOD 05/08/2024 9:21 AM [facility] Anion Gap 8 3 - 11 LAB CHEMISTRY METHOD 05/08/2024 9:21 AM [facility] Glucose 183(H) 70 - 100 mg/dL LAB CHEMISTRY METHOD 05/08/2024 9:21 AM [facility] BUN 27(H) 5 - 25 mg/dL LAB CHEMISTRY METHOD 05/08/2024 9:21 AM [facility] Creatinine 1.82(H) 0.70 - 1.30 mg/dL LAB CHEMISTRY METHOD 05/08/2024 9:21 AM [facility] eGFR 40(L) >=60 mL/min/1. 73m2 LAB CHEMISTRY METHOD 05/08/2024 9:21 AM [facility] Comment:Calculation based on the Chronic Kidney Disease Epidemiology Collaboration (CKD-EPI) equation refit without adjustment for race. BUN/Creatinine Ratio 14.8 LAB CHEMISTRY METHOD 05/08/2024 9:21 AM [facility] Calcium 9.6 8.5 - 10.5 mg/dL LAB CHEMISTRY METHOD 05/08/2024 9:21 AM [facility] AST (SGOT) 20 10 - 42 unit/L LAB CHEMISTRY METHOD 05/08/2024 9:21 AM [facility] ALT (SGPT) 10 10 - 60 unit/L LAB CHEMISTRY METHOD 05/08/2024 9:21 AM [facility] Alkaline Phosphatase 52 42 - 121 unit/L LAB CHEMISTRY METHOD 05/08/2024 9:21 AM [facility] Total Protein 6.4 6.0 - 8.0 g/dL LAB CHEMISTRY METHOD 05/08/2024 9:21 AM [facility] Albumin 2.7(L) 3.2 - 5.0 g/dL LAB CHEMISTRY METHOD 05/08/2024 9:21 AM [facility] Total Bilirubin 0.5 0.0 - 1.4 mg/dL LAB CHEMISTRY METHOD 05/08/2024 9:21 AM [facility] Blood Venous blood specimen / Unknown Venipuncture / Unknown 05/08/2024 6:16 AM EST 05/08/2024 8:37 AM EST us Michelle Rucker MD LAB BLOOD ORDERABLES Fin al Result [facility] [address] [place] [address], * (ABNORMAL) Complete blood count (05/08/2024 6:16 AM EST) Pathologist [facility] WBC 9.8 4.8 - 10.8 K/mcL LAB HEMETOLOGY METHOD 05/08/2024 8:53 AM [facility] RBC 4.00(L) 4.50 - 5.50 M/[facility] LAB HEMETOLOGY METHOD 05/08/2024 8:53 AM [facility] Hemoglobin 11.0(L) 13.5 - 17.5 g/dL LAB HEMETOLOGY METHOD 05/08/2024 8:53 AM [facility] Hematocrit 34.0(L) 42.0 - 54.0 % LAB HEMETOLOGY METHOD 05/08/2024 8:53 AM [facility] MCV 85.4 79.0 - 98.0 FL LAB HEMETOLOGY METHOD 05/08/2024 8:53 AM [facility] MCH 27.6 27.0 - 32.0 pcg LAB HEMETOLOGY METHOD 05/08/2024 8:53 AM EST [facility] MCHC 32.4 32.0 - 37.0 g/dL LAB HEMETOLOGY METHOD 05/08/2024 8:53 AM [facility] RDW 12.8 11.0 - 15.0 % LAB HEMETOLOGY METHOD 05/08/2024 8:53 AM [facility] Platelets 235 130 - 400 K/mcL LAB HEMETOLOGY METHOD 05/08/2024 8:53 AM [facility] MPV 10.8 7.0 - 11.0 FL LAB HEMETOLOGY METHOD 05/08/2024 8:53 AM [facility] NRBC 0.0 <1.0 % LAB HEMETOLOGY METHOD 05/08/2024 8:53 AM [facility] NRBC Absolute 0.00 <0.10 K/mcL LAB HEMETOLOGY METHOD 05/08/2024 8:53 AM [facility] Blood Venous blood specimen / Unknown Venipuncture / Unknown 05/08/2024 6:16 AM EST 05/08/2024 8:37 AM EST Michelle Rucker MD LAB BLOOD ORDERABLES Fin al Result Performing Organization Address City/State/[facility] Co de Phone Number [facility] [address] [place] [address], documented in this encounter Visit Diagnoses Diagnosis Kidney transplant status 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 difficile Rule-Out 08/14/2024 08/13/20242024 11:06 AM EST MDRO (other) 12/15/2024 12/15/2024 documented as of this encounter Care Teams Hat Presser Relationship Specialty Start Date End Date Michelle Rucker MD [address] [place] [phone] PCP - General Family Medicine 05/06/24 documented as of this encounter
--- OUTSIDE RECORDS SUMMARY | 2025-04-30 12:16 | XMS_ITS | Encounter Summary ---
Author Organization [facility] Address [address] [place] [phone] Care Team Providers Care Sr. Logistics Analyst Name Role Phone Michelle Rucker MD Primary Care Provider + Encounter Details Date Type Department Care Team (Late st Contact Info) Description 05/15/2024 Lab Requisition [facility] - Main Lab 299 [facility] [employer] [place] [address] Michelle Rucker MD [address] [place] [phone] Kidney transplant status; Squamous cell carcinoma of [...] documented as of this encounter Care Teams Sr. Logistics Analyst Relationship Specialty Start Date End Date Michelle Rucker MD [address] [place] [phone] PCP - General Family Medicine 05/06/24 documented as of this encounter
--- OUTSIDE RECORDS SUMMARY | 2025-04-30 12:16 | XMS_ITS | Encounter Summary ---
Author Organization [facility] Address [address] [place] [phone] Care Team Providers Care Special Distribution Clerk Name Role Phone Michelle Rucker MD Primary Care Provider + Encounter Details Date Type Department Care Team (Late st Contact Info) Description 06/26/[address] [facility] - Main Lab 299 [facility] [place] [address] Michelle Rucker MD [address] [phone] Hyperlipidemia, unspecified; Heart failure, unspecified (CMS/HCC V24, [...] documented as of this encounter Care Teams Special Distribution Clerk Relationship Specialty Start Date End Date Michelle Rucker MD [address] [phone] PCP - General Family Medicine 05/06/24 documented as of this encounter
--- OUTSIDE RECORDS SUMMARY | 2025-04-30 12:16 | XMS_ITS | Encounter Summary ---
Author Organization [facility] Address [address] [place] [phone] Care Team Providers Care Finishing Frame Runner Name Role Phone Michelle Rucker MD Primary Care Provider + Encounter Details Date Type Department Care Team (Late st Contact Info) Description 06/08/2024 Lab Requisition [facility] - Main Lab 299 [facility] [place] [address] Michelle Rucker MD [address] [phone] Heart failure, unspecified (CMS/HCC V24, CMS/HCC V28); [...] LAB CHEMISTRY METHOD 06/08/2024 2:45 PM EST [facility] Mean Bld Glu Estim. 169 mg/dL LAB CHEMISTRY METHOD 06/08/2024 2:45 PM EST [facility] Blood Venous blood specimen / Unknown Venipuncture / Unknown 06/08/2024 6:35 AM EST 06/08/2024 12:12 PM EST us Michelle Rucker MD LAB BLOOD ORDERABLES Fin al Result [facility] [address] [place] [address], [place] [phone] * Vitamin B12 (06/08/2024 6:35 AM EST) Pathologist [facility] Vitamin B-12 618 250 - 900 pcg/mL LAB CHEMISTRY METHOD 06/08/2024 6:05 PM EST [facility] Blood Venous blood specimen / Unknown Venipuncture / Unknown 06/08/2024 6:35 AM EST 06/08/2024 12:12 PM EST Michelle Rucker MD LAB BLOOD ORDERABLES Fin al Result [facility] [address] [place] [address], [place] [phone] * (ABNORMAL) Folate (06/08/2024 6:35 AM EST) [facility] Folate 2.1(L) 2.8 - 17.0 ng/ml LAB CHEMISTRY METHOD 06/08/2024 6:05 PM EST [facility] Blood Venous blood specimen / Unknown Venipuncture / Unknown 06/08/2024 6:35 AM EST 06/08/2024 12:12 PM EST Michelle Rucker MD LAB BLOOD ORDERABLES Fin al Result [facility] [address] [place] [address], [place] [phone] * (ABNORMAL) Magnesium (06/08/2024 6:35 AM EST) [facility] Magnesium 1.7(L) 1.9 - 2.6 mg/dL LAB CHEMISTRY METHOD 06/08/2024 5:40 PM EST [facility] Blood Venous blood specimen / Unknown Venipuncture / Unknown 06/08/2024 6:35 AM EST 06/08/2024 12:12 PM EST Michelle Rucker MD LAB BLOOD ORDERABLES Fin al Result Performing Organization Address [facility]/ZIP Co de Phone Number [facility] [address] [place] [address], [place] [phone] * (ABNORMAL) Thyroid stimulating hormone (06/08/2024 6:35 AM EST) TSH 4.31(H) 0.40 - 4.00 mcIU/mL LAB CHEMISTRY METHOD 06/08/2024 5:39 PM [facility] Blood Venous blood specimen / Unknown Venipuncture / Unknown 06/08/2024 6:35 AM EST 06/08/2024 12:12 PM EST Michelle Rucker MD LAB BLOOD ORDERABLES Fin al Result Performing Organization Address [facility]/ZIP Co de Phone Number [facility] [address] [place] [address], [place] [phone] * (ABNORMAL) Comprehensive metabolic panel (06/08/2024 6:35 AM EST) Pathologist [facility] Sodium 139 133 - 145 mmol/L LAB CHEMISTRY METHOD 06/08/2024 6:05 PM [facility] Potassium 3.9 3.5 - 5.5 mmol/L LAB CHEMISTRY METHOD 06/08/2024 6:05 PM [facility] Chloride 106 96 - 110 mmol/L LAB CHEMISTRY METHOD 06/08/2024 6:05 PM [facility] CO2 24 21 - 32 mmol/L LAB CHEMISTRY METHOD 06/08/2024 6:05 PM [facility] Anion Gap 9 3 - 11 LAB CHEMISTRY METHOD 06/08/2024 6:05 PM [facility] Glucose 159(H) 70 - 100 mg/dL LAB CHEMISTRY METHOD 06/08/2024 6:05 PM [facility] BUN 27(H) 5 - 25 mg/dL LAB CHEMISTRY METHOD 06/08/2024 6:05 PM [facility] Creatinine 1.91(H) 0.70 - 1.30 mg/dL LAB CHEMISTRY METHOD 06/08/2024 6:05 PM [facility] eGFR 38(L) >=60 mL/min/1. 73m2 LAB CHEMISTRY METHOD 06/08/2024 6:05 PM [facility] Comment:Calculation based on the Chronic Kidney Disease Epidemiology Collaboration (CKD-EPI) equation refit without adjustment for race. BUN/Creatinine Ratio 14.1 LAB CHEMISTRY METHOD 06/08/2024 6:05 PM [facility] Calcium 9.3 8.5 - 10.5 mg/dL LAB CHEMISTRY METHOD 06/08/2024 6:05 PM [facility] AST (SGOT) 13 10 - 42 unit/L LAB CHEMISTRY METHOD 06/08/2024 6:05 PM [facility] ALT (SGPT) 12 10 - 60 unit/L LAB CHEMISTRY METHOD 06/08/2024 6:05 PM [facility] Alkaline Phosphatase 56 42 - 121 unit/L LAB CHEMISTRY METHOD 06/08/2024 6:05 PM [facility] Total Protein 6.3 6.0 - 8.0 g/dL LAB CHEMISTRY METHOD 06/08/2024 6:05 PM [facility] Albumin 2.9(L) 3.2 - 5.0 g/dL LAB CHEMISTRY METHOD 06/08/2024 6:05 PM [facility] Total Bilirubin 0.5 0.0 - 1.4 mg/dL LAB CHEMISTRY METHOD 06/08/2024 6:05 PM [facility] Blood Venous blood specimen / Unknown Venipuncture / Unknown 06/08/2024 6:35 AM EST 06/08/2024 12:12 PM EST Michelle Rucker MD LAB BLOOD ORDERABLES Fin al Result [facility] [address] [place] [address], * (ABNORMAL) Complete blood count (06/08/2024 6:35 AM EST) WBC 4.2(L) 4.8 - 10.8 K/mcL LAB HEMETOLOGY METHOD 06/08/2024 1:01 PM [facility] RBC 4.50 4.50 - 5.50 M/mcL LAB HEMETOLOGY METHOD 06/08/2024 1:01 PM [facility] Hemoglobin 11.6(L) 13.5 - 17.5 g/dL LAB HEMETOLOGY METHOD 06/08/2024 1:01 PM [facility] Hematocrit 37.4(L) 42.0 - 54.0 % LAB HEMETOLOGY METHOD 06/08/2024 1:01 PM [facility] MCV 82.6 79.0 - 98.0 FL LAB HEMETOLOGY METHOD 06/08/2024 1:01 PM [facility] MCH 25.6(L) 27.0 - 32.0 pcg LAB HEMETOLOGY METHOD 06/08/2024 1:01 PM [facility] MCHC 31.0(L) 32.0 - 37.0 g/dL LAB HEMETOLOGY METHOD 06/08/2024 1:01 PM [facility] RDW 13.7 11.0 - 15.0 % LAB HEMETOLOGY METHOD 06/08/2024 1:01 PM [facility] Platelets 152 130 - 400 K/mcL LAB HEMETOLOGY METHOD 06/08/2024 1:01 PM [facility] MPV 11.4(H) 7.0 - 11.0 FL LAB HEMETOLOGY METHOD 06/08/2024 1:01 PM [facility] NRBC 0.0 <1.0 % LAB HEMETOLOGY METHOD 06/08/2024 1:01 PM EST [facility] NRBC Absolute 0.00 <0.10 K/mcL LAB HEMETOLOGY METHOD 06/08/2024 1:01 PM EST [facility] Blood Venous blood specimen / Unknown Venipuncture / Unknown 06/08/2024 6:35 AM EST 06/08/2024 12:12 PM EST us Michelle Rucker MD LAB BLOOD ORDERABLES Fin al Result [facility] [address] [place] [address], documented in this encounter Visit Diagnoses Diagnosis [...] documented as of this encounter Care Teams Finishing Frame Runner Relationship Specialty Start Date End Date Michelle Rucker MD [address] [place] [phone] PCP - General Family Medicine 05/06/24 documented as of this encounter
--- OUTSIDE RECORDS SUMMARY | 2025-04-30 12:17 | XMS_ITS | Encounter Summary ---
Author Organization [facility] Address [address] [place] [phone] Care Team Providers Care Work Checker Name Role Phone Michelle Rucker MD Primary Care Provider + Encounter Details Date Type Department Care Team (Late st Contact Info) Description 10/02/2024 Lab Requisition [facility] - Main Lab 299 [facility] [place] [address] Michelle Rucker MD [address] [phone] Immunodeficiency, unspecified (CMS/[facility] V24) Social History Tobacco Use [...] Routine 10/02/2024 6:50 AM EDT Immunodeficiency, unspecified ([facility] V24) CREATINE KINASE Routine 10/02/2024 6:50 AM EDT Immunodeficiency, unspecified ([facility] V24) RENAL FUNCTION PANEL Routine 10/02/2024 6:50 AM EDT Immunodeficiency, unspecified ([facility] V24) COMPREHENSIVE METABOLIC PANEL Routine 10/02/2024 6:50 AM EDT Immunodeficiency, unspecified ([facility] V24) documented in this encounter Results * (ABNORMAL) CBC auto differential (10/02/2024 6:50 AM EDT) [facility] Signature WBC 6.1 4.8 - 10.8 K/mcL LAB HEMETOLOGY METHOD 10/02/2024 9:04 AM [facility] RBC 4.20(L) 4.50 - 5.50 M/mcL LAB HEMETOLOGY METHOD 10/02/2024 9:04 AM [facility] LAB Hemoglobin 10.4(L) 13.5 - 17.5 g/dL LAB HEMETOLOGY METHOD 10/02/2024 9:04 AM [facility] LAB Hematocrit 33.7(L) 42.0 - 54.0 % LAB HEMETOLOGY METHOD 10/02/2024 9:04 AM [facility] LAB MCV 80.8 79.0 - 98.0 FL LAB HEMETOLOGY METHOD 10/02/2024 9:04 AM [facility] LAB MCH 24.9(L) 27.0 - 32.0 pcg LAB HEMETOLOGY METHOD 10/02/2024 9:04 AM [facility] LAB MCHC 30.9(L) 32.0 - 37.0 g/dL LAB HEMETOLOGY METHOD 10/02/2024 9:04 AM [facility] LAB RDW 14.6 11.0 - 15.0 % LAB HEMETOLOGY METHOD 10/02/2024 9:04 AM [facility] LAB Platelets 270 130 - 400 K/mcL LAB HEMETOLOGY METHOD 10/02/2024 9:04 AM [facility] LAB MPV 10.7 7.0 - 11.0 FL LAB HEMETOLOGY METHOD 10/02/2024 9:04 AM [facility] LAB NRBC 0.0 <1.0 % LAB HEMETOLOGY METHOD 10/02/2024 9:04 AM [facility] LAB NRBC Absolute 0.00 <0.10 K/mcL LAB HEMETOLOGY METHOD 10/02/2024 9:04 AM [facility] Neutrophils Relative 67.4 % LAB HEMETOLOGY METHOD 10/02/2024 9:04 AM [facility] Lymphocytes Relative 16.7 % LAB HEMETOLOGY METHOD 10/02/2024 9:04 AM [facility] Monocytes Relative 11.6 % LAB HEMETOLOGY METHOD 10/02/2024 9:04 AM [facility] Eosinophils Relative 3.3 % LAB HEMETOLOGY METHOD 10/02/2024 9:04 AM [facility] Basophils Relative 0.7 % LAB HEMETOLOGY METHOD 10/02/2024 9:04 AM [facility] Immature Granulocytes Relative 0.3 % LAB HEMETOLOGY METHOD 10/02/2024 9:04 AM [facility] Neutrophils Absolute 4.13 1.50 - 7.00 K/mcL LAB HEMETOLOGY METHOD 10/02/2024 9:04 AM [facility] Lymphocytes Absolute 1.02 1.00 - 5.00 K/mcL LAB HEMETOLOGY METHOD 10/02/2024 9:04 AM [facility] Monocytes Absolute 0.71 0.20 - 1.00 K/mcL LAB HEMETOLOGY METHOD 10/02/2024 9:04 AM EDT [facility] Eosinophils Absolute 0.20 0.00 - 0.50 K/[facility] LAB HEMETOLOGY METHOD 10/02/2024 9:04 AM EDT [facility] Basophils Absolute 0.04 0.00 - 0.20 K/[facility] LAB HEMETOLOGY METHOD 10/02/2024 9:04 AM EDT [facility] Immature Granulocytes Absolute 0.02 0.00 - 0.03 K/[facility] LAB HEMETOLOGY METHOD 10/02/2024 9:04 AM EDT [facility] Blood Venous blood specimen / Unknown Venipuncture / Unknown 10/02/2024 6:50 AM EDT 10/02/2024 8:49 AM EDT Michelle Rucker MD LAB BLOOD ORDERABLES Fin al Result Performing Organization Address City/[facility]/ZIP Co de Phone Number [facility] [address] [place] [address], [place] [phone] * Parathyroid hormone intact (10/02/2024 6:50 AM EDT) [facility] PTH 45.7 18.5 - 88.0 pcg/mL LAB CHEMISTRY METHOD 10/02/2024 10:52 AM EDT [facility] Blood Venous blood specimen / Unknown Venipuncture / Unknown 10/02/2024 6:50 AM EDT 10/02/2024 8:49 AM EDT Michelle Rucker MD LAB BLOOD ORDERABLES Fin al Result [facility] [address] [place] [address], [place] [phone] * BK virus molecular study quantitative (10/02/2024 6:50 AM EDT) [facility] BK Virus DNA Qual Plasma Not detected Not detected 10/05/2024 12:56 PM EDT [facility] BK Virus DNA Quant Plasma <125 <125 Copies/mL 10/05/2024 12:56 PM EDT [facility] Log BK Virus DNA, Plasma <2.10 <2.10 Log (10) Copies/mL 10/05/2024 12:56 PM EDT [facility] Comment: This test [...] of this procedure were determined by [facility]. This test is performed pursuant to a license agreement with [employer] Test performed at [facility], [address] , [place], [place] [id number] Brittanie Horan MD, PhD - Business Management Intern Blood Venous blood specimen / Unknown Venipuncture / Unknown 10/02/2024 6:50 AM EDT 10/02/2024 8:49 AM EDT us Michelle Rucker MD LAB BLOOD ORDERABLES Fin al Result [facility] [address] [place] [address] * (ABNORMAL) Hemoglobin A1c (10/02/2024 6:50 AM EDT) [facility] Hemoglobin A1C 7.3(H) <6.5 % LAB CHEMISTRY [...] Fin al Result Performing Organization Address [facility]/ZIP Co de Phone Number [facility] [address] [place] [address], [place] [phone] * Creatine kinase (10/02/2024 6:50 AM EDT) [facility] Total CK 27 22 - 269 unit/L LAB CHEMISTRY METHOD 10/02/2024 9:31 AM EDT [facility] Blood Venous blood specimen / Unknown Venipuncture / Unknown 10/02/2024 6:50 AM EDT 10/02/2024 8:49 AM EDT Michelle Rucker MD LAB BLOOD ORDERABLES Fin al Result Performing Organization Address [facility] de Phone Number [facility] [address] [place] [address], [place] [phone] * (ABNORMAL) Renal function panel (10/02/2024 6:50 AM EDT) [facility] Sodium 139 133 - 145 mmol/L LAB [...] mmol/L LAB CHEMISTRY METHOD 10/02/2024 9:31 AM [facility] Anion Gap 4 3 - 11 LAB CHEMISTRY METHOD 10/02/2024 9:31 AM [facility] Glucose 129(H) 70 - 100 mg/dL LAB CHEMISTRY METHOD 10/02/2024 9:31 AM [facility] BUN 32(H) 5 - 25 mg/dL LAB CHEMISTRY METHOD 10/02/2024 9:31 AM [facility] Creatinine 1.26 0.70 - 1.30 mg/dL LAB CHEMISTRY METHOD 10/02/2024 9:31 AM [facility] LAB eGFR 63 >=60 mL/min/1. 73m2 LAB CHEMISTRY METHOD 10/02/2024 9:31 AM [facility] Comment: Calculation based on the Chronic Kidney Disease Epidemiology Collaboration (CKD-EPI) equation refit without adjustment for race. Calculation based on the Chronic Kidney Disease Epidemiology Collaboration (CKD-EPI) equation refit without adjustment for race. BUN/Creatinine Ratio 25.4 LAB CHEMISTRY METHOD 10/02/2024 9:31 AM [facility] Albumin 2.6(L) 3.2 - 5.0 g/dL LAB CHEMISTRY METHOD 10/02/2024 9:31 AM [facility] Calcium 9.6 8.5 - 10.5 mg/dL LAB CHEMISTRY METHOD 10/02/2024 9:31 AM [facility] Phosphorus 3.5 2.5 - 4.5 mg/dL LAB CHEMISTRY METHOD 10/02/2024 9:31 AM [facility] Blood Venous blood specimen / Unknown Venipuncture / Unknown 10/02/2024 6:50 AM EDT 10/02/2024 8:49 AM EDT us Michelle Rucker MD LAB BLOOD ORDERABLES Fin al Result [facility] [address] [place] [address], * (ABNORMAL) Comprehensive metabolic panel (10/02/2024 6:50 AM EDT) [facility] Signature Sodium 139 133 - 145 mmol/L LAB CHEMISTRY METHOD 10/02/2024 9:31 AM [facility] Potassium 4.5 3.5 - 5.5 mmol/L LAB CHEMISTRY METHOD 10/02/2024 9:31 AM [facility] Chloride 105 96 - 110 mmol/L LAB CHEMISTRY METHOD 10/02/2024 9:31 AM [facility] CO2 30 21 - 32 mmol/L LAB CHEMISTRY METHOD 10/02/2024 9:31 AM [facility] Anion Gap 4 3 - 11 LAB CHEMISTRY METHOD 10/02/2024 9:31 AM [facility] Glucose 129(H) 70 - 100 mg/dL LAB CHEMISTRY METHOD 10/02/2024 9:31 AM [facility] BUN 32(H) 5 - 25 mg/dL LAB CHEMISTRY METHOD 10/02/2024 9:31 AM [facility] Creatinine 1.26 0.70 - 1.30 mg/dL LAB CHEMISTRY METHOD 10/02/2024 9:31 AM [facility] LAB eGFR 63 >=60 mL/min/1. 73m2 LAB CHEMISTRY METHOD 10/02/2024 9:31 AM [facility] Comment:Calculation based on the Chronic Kidney Disease Epidemiology Collaboration (CKD-EPI) equation refit without adjustment for race. BUN/Creatinine Ratio 25.4 LAB CHEMISTRY METHOD 10/02/2024 9:31 AM [facility] Calcium 9.6 8.5 - 10.5 mg/dL LAB CHEMISTRY METHOD 10/02/2024 9:31 AM [facility] AST (SGOT) 14 10 [...] Result [facility] [address] [place] [address], documented in this encounter Visit Diagnoses Diagnosis Immunodeficiency, unspecified (CMS/HCC V24) documented in this encounter Additional Health Concerns Infection Onset Date Last Indicated Resolved Time MDRO (other) 12/15/2024 12/15/2024 documented as of this encounter Care Teams Work Checker Relationship Specialty Start Date End Date Michelle Rucker MD [address] [place] [phone] PCP - General Family Medicine 05/06/24 documented as of this encounter
--- OUTSIDE RECORDS SUMMARY | 2025-04-30 12:17 | XMS_ITS | Encounter Summary ---
Author Organization Address [address] [place] [address] Care Team Providers Care Flame Annealing Machine Operator Name Role Phone Michelle Rucker MD Primary Care Provider + Encounter Details Date Type Department Care Team (Late st Contact Info) Description 10/13/2024 Lab Requisition [facility] - Main Lab 299 [facility] [place] [address] Michelle Rucker MD [address] [address] Encounter for therapeutic drug level [...] performance characteristics determined by [facility]. This confirmation testing has not been cleared or approved by the FDA. The laboratory is regulated under CLIA as qualified to perform high-complexity testing. This test is used for patient testing purposes. It should not be regarded as investigational or for research. Test performed at [facility], [address], [place] [address] Brittanie Horan MD, PhD - A Operator Blood Venous blood specimen / Unknown Venipuncture / Unknown 10/13/2024 6:50 AM EDT 10/13/2024 8:10 AM EDT Michelle Rucker MD LAB BLOOD ORDERABLES Fin al Result [facility] [address] [address] documented in this encounter Visit Diagnoses Diagnosis Encounter for therapeutic drug level monitoring documented in this encounter Additional Health Concerns Infection Onset Date Last Indicated Resolved Time MDRO (other) 12/15/2024 12/15/2024 documented as of this encounter Care Teams Flame Annealing Machine Operator Relationship Specialty Start Date End Date Michelle Rucker MD [address] [address] PCP - General Family Medicine 05/06/24 documented as of this encounter
--- OUTSIDE RECORDS SUMMARY | 2025-04-30 12:17 | XMS_ITS | Encounter Summary ---
Author Organization [facility] Address [address] [place] [phone] Phone Care Team Providers Care Duralumin Mechanic Name Role Phone Ebony Lintonher Sloane NATHAN Primary Care Provider + Encounter Details Date Type Department Care Team (Late st Contact Info) Description 03/05/2025 Documentation Only [facility] [address] [place] [address] [place] [address] [place] [phone] Social History Tobacco Use Types Packs/Day [...] Visit [facility] [address] [place] [address] Andrey Phan MD [address] [place] [address] documented as of this encounter Visit Diagnoses Not on filedocumented in this encounter Care Teams Duralumin Mechanic Relationship Specialty Start Date End Date Tennille Linton NP [address] [place] [phone] PCP - General Nurse Practitioner 08/07/23 documented as of this encounter
--- OUTSIDE RECORDS SUMMARY | 2025-04-30 12:17 | XMS_ITS | Encounter Summary ---
Author Organization [facility] Address [address] [place] [phone] Care Team Providers Care Golf Club Maker Name Role Phone Michelle Rucker MD Primary Care Provider + Encounter Details Date Type Department Care Team (Late st Contact Info) Description 07/14/2024 Lab Requisition [facility] - Main Lab 299 [facility] [place] [address] Michelle Rucker MD [address] [phone] Heart failure, unspecified (CMS/HCC V24, CMS/[facility] V28); Vitamin D deficiency, unspecified; [...] diabetic neuropathy, unspecified (CMS/HCC V24, CMS/[facility] V28) 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 difficile Rule-Out 08/14/2024 08/13/20242024 11:06 AM EST MDRO (other) 12/15/2024 12/15/2024 documented as of this encounter Care Teams Golf Club Maker Relationship Specialty Start Date End Date Michelle Rucker MD [address] [phone] PCP - General Family Medicine 05/06/24 documented as of this encounter
--- OUTSIDE RECORDS SUMMARY | 2025-04-30 12:17 | XMS_ITS | Encounter Summary ---
Author Organization [facility] Address [address] [place] [phone] Care Team Providers Care Ev[employer] Founder Name Role Phone Michelle Rucker MD Primary Care Provider + Encounter Details Date Type Department Care Team (Late st Contact Info) Description 08/06/2024 Lab Requisition [facility] - Main Lab 299 [facility] [place] [address] Michelle Rucker MD [address] [address] Vitamin D deficiency, unspecified; Malignant [...] LAB CHEMISTRY METHOD 08/07/2024 11:25 AM EST [facility] Mean Bld Glu Estim. 197 mg/dL LAB CHEMISTRY METHOD 08/07/2024 11:25 AM EST [facility] Blood Venous blood specimen / Unknown Venipuncture / Unknown 08/07/2024 6:48 AM EST 08/07/2024 8:30 AM EST Michelle Rucker MD LAB BLOOD ORDERABLES Fin al Result Performing Organization Address [facility]/ZIP Co de Phone Number [facility] [address] [place] [address], * Vitamin D 25 hydroxy (08/07/2024 6:48 AM EST) [facility] Vit D, 25-Hydroxy 49.9 30.0 - 80.0 ng/mL LAB CHEMISTRY METHOD 08/07/2024 10:27 AM EST [facility] Blood Venous blood specimen / Unknown Venipuncture / Unknown 08/07/2024 6:48 AM EST 08/07/2024 8:30 AM EST Michelle Rucker MD LAB BLOOD ORDERABLES Fin al Result Performing Organization Address City/[facility]/ZIP Co de Phone Number [facility] [address] [place] [address], * Vitamin B12 (08/07/2024 6:48 AM EST) [facility] Vitamin B-12 670 250 - 900 pcg/mL LAB CHEMISTRY METHOD 08/07/2024 10:47 AM EST [facility] Blood Venous blood specimen / Unknown Venipuncture / Unknown 08/07/2024 6:48 AM EST 08/07/2024 8:30 AM EST Michelle Rucker MD LAB BLOOD ORDERABLES Fin al Result Performing Organization Address City/[facility]/ZIP Co de Phone Number [facility] [address] [place] [address], [place] [phone] * Folate (08/07/2024 6:48 AM EST) Folate 8.7 2.8 - 17.0 ng/ml LAB CHEMISTRY METHOD 08/07/2024 10:47 AM EST [facility] Blood Venous blood specimen / Unknown Venipuncture / Unknown 08/07/2024 6:48 AM EST 08/07/2024 8:30 AM EST Michelle Rucker MD LAB BLOOD ORDERABLES Fin al Result Performing Organization Address City/[facility]/ZIP Co de Phone Number [facility] [address] [place] [address], [place] [phone] * Magnesium (08/07/2024 6:48 AM EST) Magnesium 2.0 1.9 - 2.6 mg/dL LAB CHEMISTRY METHOD 08/07/2024 10:20 AM EST [facility] Blood Venous blood specimen / Unknown Venipuncture / Unknown 08/07/2024 6:48 AM EST 08/07/2024 8:30 AM EST Michelle Rucker MD LAB BLOOD ORDERABLES Fin al Result [facility] [address] [place] [address], [place] [phone] * (ABNORMAL) Comprehensive metabolic panel (08/07/2024 6:48 [...] [facility] [address] [place] [address], * (ABNORMAL) Complete blood count (08/07/2024 6:48 AM EST) WBC 9.7 4.8 - 10.8 K/mcL LAB HEMETOLOGY METHOD 08/07/2024 9:54 AM [facility] RBC 3.80(L) 4.50 - 5.50 M/[facility] LAB HEMETOLOGY METHOD 08/07/2024 9:54 AM [facility] Hemoglobin 9.7(L) 13.5 - 17.5 g/dL LAB HEMETOLOGY METHOD 08/07/2024 9:54 AM [facility] Hematocrit 31.1(L) 42.0 - 54.0 % LAB HEMETOLOGY METHOD 08/07/2024 9:54 AM [facility] MCV 82.3 79.0 - 98.0 FL LAB HEMETOLOGY METHOD 08/07/2024 9:54 AM EST [facility] MCH 25.7(L) 27.0 - 32.0 pcg LAB HEMETOLOGY METHOD 08/07/2024 9:54 AM [facility] MCHC 31.2(L) 32.0 - 37.0 g/dL LAB HEMETOLOGY METHOD 08/07/2024 9:54 AM EST [facility] RDW 15.9(H) 11.0 - 15.0 % LAB HEMETOLOGY METHOD 08/07/2024 9:54 AM EST [facility] Platelets 277 130 - 400 K/mcL LAB HEMETOLOGY METHOD 08/07/2024 9:54 AM [facility] MPV 10.8 7.0 - 11.0 FL LAB HEMETOLOGY METHOD 08/07/2024 9:54 AM EST [facility] [address] [place] [address], documented in this encounter Visit Diagnoses Diagnosis Vitamin D deficiency, unspecified Malignant (primary) neoplasm, unspecified (CMS/HCC V24, CMS/HCC V28) Kidney transplant status Type 1 diabetes mellitus with diabetic neuropathy, unspecified (CMS/HCC V24, CMS/HCC V28) 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 difficile Rule-Out 08/14/2024 08/13/20242024 11:06 AM EST MDRO (other) 12/15/2024 12/15/2024 documented as of this encounter Care Teams [employer] Founder Relationship Specialty Start Date End Date Michelle Rucker MD [address] [place] [address] PCP - General Family Medicine 05/06/24 documented as of this encounter
--- OUTSIDE RECORDS SUMMARY | 2025-04-30 12:17 | XMS_ITS | Encounter Summary ---
Author Organization [facility] Address [address] [place] [phone] Care Team Providers Care Structural Engineering Drafting Officer Name Role Phone Michelle Rucker MD Primary Care Provider + Encounter Details Date Type Department Care Team (Late st Contact Info) Description 10/19/2024 Lab Requisition [facility] - Main Lab 299 [facility] [address] [place] [address] Michelle Rucker MD [address] [phone] Acute kidney failure, unspecified (CMS/HCC V24); Encounter [...] [facility], [address], [place] [address] Brittanie Horan MD, PhD - Customer Counter Associate Blood Venous blood specimen / Unknown Venipuncture / Unknown 10/20/2024 8:08 AM EDT 10/20/2024 9:11 AM EDT Michelle Rucker MD LAB BLOOD ORDERABLES Fin al Result [facility] [address] [place] [address] documented in this encounter Visit Diagnoses Diagnosis Acute kidney failure, unspecified (CMS/[facility] V24) Acute kidney failure, unspecified Encounter for therapeutic drug level monitoring documented in this encounter Additional Health Concerns Infection Onset Date Last Indicated Resolved Time MDRO (other) 12/15/2024 12/15/2024 documented as of this encounter Care Teams Structural Engineering Drafting Officer Relationship Specialty Start Date End Date Michelle Rucker MD [address] [phone] PCP - General Family Medicine 05/06/24 documented as of this encounter
--- OUTSIDE RECORDS SUMMARY | 2025-04-30 12:17 | XMS_ITS | Encounter Summary ---
Author Organization [facility] Address [address] [place] [address] Care Team Providers Care Coding Specialist Name Role Phone Michelle Rucker MD Primary Care Provider + Encounter Details Date Type Department Care Team (Late st Contact Info) Description 10/26/2024 Lab Requisition [facility] - Main Lab 299 [facility] [place] [address] Michelle Rucker MD [address] [address] Kidney transplant status Social History [...] the performance characteristics determined by [facility]. This confirmation testing has not been cleared or approved by the FDA. The laboratory is regulated under CLIA as qualified to perform high-complexity testing. This test is used for patient testing purposes. It should not be regarded as investigational or for research. Test performed at [facility], [address], [place] [address] Brittanie Horan MD, PhD - Fabrication Engineer Blood Venous blood specimen / Unknown Venipuncture / Unknown 10/27/2024 8:34 AM EDT 10/27/2024 9:32 AM EDT Michelle Rucker MD LAB BLOOD ORDERABLES Fin al Result [facility] [address] [place] [address] documented in this encounter Visit Diagnoses Diagnosis Kidney transplant status documented in this encounter Additional Health Concerns Infection Onset Date Last Indicated Resolved Time MDRO (other) 12/15/2024 12/15/2024 documented as of this encounter Care Teams Coding Specialist Relationship Specialty Start Date End Date Michelle Rucker MD [address] [place] [phone] PCP - General Family Medicine 05/06/24 documented as of this encounter
--- OUTSIDE RECORDS SUMMARY | 2025-04-30 12:17 | XMS_ITS | Encounter Summary ---
Author Organization [facility] Address [id number] [place] [phone] Care Team Providers Care Drainage Design Coordinator Name Role Phone Michelle Rucker MD Primary Care Provider + Encounter Details Date Type Department Care Team (Late st Contact Info) Description 08/10/2024 Lab Requisition [facility] - Main Lab [address] [place] [address] Michelle Rucker MD [address] [phone] Type 1 diabetes mellitus without complications (CMS/HCC [...] Type 1 diabetes mellitus without complications (CMS/[facility]) documented in this encounter Results * (ABNORMAL) [...] LAB BLOOD ORDERABLES Fin al Result [facility] ([facility]) [facility] [address] [place] [address], documented in this encounter Visit Diagnoses Diagnosis Type 1 diabetes mellitus without complications (CMS/HCC V24, CMS/HCC V28) documented in this encounter Additional Health Concerns Infection Onset Date Last Indicated Resolved Time C. difficile Rule-Out 08/14/2024 08/13/20242024 11:06 AM EST MDRO (other) 12/15/2024 12/15/2024 documented as of this encounter Care Teams Drainage Design Coordinator Relationship Specialty Start Date End Date Michelle Rucker MD [address] [place] [phone] PCP - General Family Medicine 05/06/24 documented as of this encounter
--- OUTSIDE RECORDS SUMMARY | 2025-04-30 12:17 | XMS_ITS | Encounter Summary ---
Author Organization [facility] Address [address] [place] [phone] Care Team Providers Care Moshgiach Name Role Phone Michelle Rucker MD Primary Care Provider + Encounter Details Date Type Department Care Team (Late st Contact Info) Description 10/02/2024 Lab Requisition [facility] - Main Lab 299 [facility] [place] [address] Michelle Rucker MD [address] [address] Acute kidney failure, unspecified (CMS/HCC [...] 1:45 PM EDT Acute kidney failure, unspecified ([facility]24) Other acute kidney failure ([facility] V24) URINALYSIS WITH REFLEX MICROSCOPIC AND CULTURE Routine 10/01/2024 1:45 PM EDT Acute kidney failure, unspecified ([facility] V24) Other acute kidney failure ([facility] V24) documented in this encounter Results * Scott urine culture tube (10/01/2024 1:45 PM EDT) Pathologist [facility] Extra Tube Hold for add-ons. 10/02/2024 11:01 AM EDT [facility] Comment:Auto resulted. Urine Urine specimen obtained by clean catch procedure / Unknown Non-blood Collection / Unknown 10/01/2024 1:45 PM EDT 10/02/2024 9:03 AM EDT us Michelle Rucker MD LAB URINE ORDERABLES Fin al Result [facility] [address] [place] [address], * (ABNORMAL) Urinalysis with reflex microscopic and culture (10/01/2024 1:45 PM EDT) Pathologist [facility] Specific [place] Urine 1.002(L) 1.003 - 1.030 LAB URINALYSIS - AUTOMATED METHOD 10/02/2024 9:15 AM EDT [facility] pH, Urine 6.5 5.0 - 8.0 pH LAB URINALYSIS - AUTOMATED METHOD 10/02/2024 9:15 AM EDT [facility] Leukocytes, Urine Negative Negative LAB URINALYSIS - AUTOMATED METHOD 10/02/2024 9:15 AM EDT [facility] Nitrite, Urine Negative Negative LAB URINALYSIS - AUTOMATED METHOD 10/02/2024 9:15 AM EDT [facility] Protein, Urine Negative <=Trace mg/dL LAB URINALYSIS - AUTOMATED METHOD 10/02/2024 9:15 AM [facility] Glucose, Urine Negative Negative mg/dL LAB URINALYSIS - AUTOMATED METHOD 10/02/2024 9:15 AM [facility] Ketones, Urine Negative Negative mg/dL LAB URINALYSIS - AUTOMATED METHOD 10/02/2024 9:15 AM [facility] Urobilinogen, Urine 0.2 0.2 - 1.0 mg/dL LAB URINALYSIS - AUTOMATED METHOD 10/02/2024 9:15 AM [facility] Bilirubin, Urine Negative Negative LAB URINALYSIS - AUTOMATED METHOD 10/02/2024 9:15 AM [facility] Blood, Urine Negative Negative LAB URINALYSIS - AUTOMATED METHOD 10/02/2024 9:15 AM [facility] Urine Urine specimen obtained by clean catch procedure / Unknown Non-blood Collection / Unknown 10/01/2024 1:45 PM EDT 10/02/2024 8:46 AM EDT us Michelle Rucker MD LAB URINE ORDERABLES Fin al Result [facility] [address] [place] [address], * (ABNORMAL) Microalbumin creatinine urine ratio (10/01/2024 1:45 PM EDT) Creatinine, Urine 27.0 mg/dL LAB CHEMISTRY METHOD 10/02/2024 10:08 AM [facility] Microalb, Ur 30.7(H) 0.0 - 29.0 mg/L LAB CHEMISTRY METHOD 10/02/2024 10:08 AM [facility] Microalb/Crea t Ratio 114(H) <30 mg/g creat LAB CHEMISTRY METHOD 10/02/2024 10:08 AM EDT [facility] Urine Urine specimen obtained by clean catch procedure / Unknown Non-blood Collection / Unknown 10/01/2024 1:45 PM EDT 10/02/2024 8:46 AM EDT us Michelle Rucker MD LAB URINE ORDERABLES Fin al Result [facility] [address] [place] [address], * (ABNORMAL) BK virus molecular study urine, quantitative (10/01/2024 1:45 PM EDT) BK Virus DNA Qual Urine DETECTED( A) Not detected 10/05/2024 12:56 PM EDT [facility] BK Virus DNA Quant PCR Urine 851(H) <125 Copies/mL 10/05/2024 12:56 PM EDT [facility] Log BK Virus DNA, Urine 2.93(H) <2.10 Log (10) Copies/mL 10/05/2024 12:56 PM EDT [facility] Comment: This test utilizes a [...] characteristics of this procedure were determined by [employer] [facility]. This test is performed pursuant to a license agreement with [employer] Test performed at [facility], [address], [place] [address] Brittanie Horan MD, PhD - Canvas Shrinker Urine Urinary bladder structure / Unknown Non-blood Collection / Unknown 10/01/2024 1:45 PM EDT 10/02/2024 8:46 AM EDT us Michelle Rucker MD LAB URINE ORDERABLES Fin al Result [facility] [address] [place] [address] documented in this encounter Visit Diagnoses Diagnosis Acute kidney failure, unspecified (CMS/HCC V24) Acute kidney failure, unspecified Other acute kidney failure (CMS/HCC V24) documented in this encounter Additional Health Concerns Infection Onset Date Last Indicated Resolved Time MDRO (other) 12/15/2024 12/15/2024 documented as of this encounter Care Teams Moshgiach Relationship Specialty Start Date End Date Michelle Rucker MD [address] [place] [phone] PCP - General Family Medicine 05/06/24 documented as of this encounter
--- OUTSIDE RECORDS SUMMARY | 2025-04-30 12:17 | XMS_ITS | Encounter Summary ---
Author Organization [facility] Address [address] [place] [phone] Care Team Providers Care Blanket Maker Name Role Phone Michelle Rucker MD Primary Care Provider + Encounter Details Date Type Department Care Team (Late st Contact Info) Description 07/24/2024 Lab Requisition [facility] - Main Lab 299 [facility] [place] [address] Michelle Rucker MD [address] [address] Malignant (primary) neoplasm, unspecified (CMS/HCC [...] LAB CHEMISTRY METHOD 07/24/2024 11:18 AM EST [facility] Blood Venous blood specimen / Unknown Venipuncture / Unknown 07/24/2024 7:23 AM EST 07/24/2024 9:40 AM EST Michelle Rucker MD LAB BLOOD ORDERABLES Fin al Result Performing Organization Address City/[facility]/ZIP Co de Phone Number [facility] [address] [place] [address], * Vitamin D 25 hydroxy (07/24/2024 7:23 AM EST) Vit D, 25-Hydroxy 48.6 30.0 - 80.0 ng/mL LAB CHEMISTRY METHOD 07/24/2024 11:01 AM EST [facility] Blood Venous blood specimen / Unknown Venipuncture / Unknown 07/24/2024 7:23 AM EST 07/24/2024 9:40 AM EST Michelle Rucker MD LAB BLOOD ORDERABLES Fin al Result [facility] [address] [place] [address], * Folate (07/24/2024 7:23 AM EST) Folate 9.0 2.8 - 17.0 ng/ml LAB CHEMISTRY METHOD 07/24/2024 11:18 AM EST [facility] Blood Venous blood specimen / Unknown Venipuncture / Unknown 07/24/2024 7:23 AM EST 07/24/2024 9:40 AM EST Michelle Rucker MD LAB BLOOD ORDERABLES Fin al Result Performing Organization Address [facility]/ZIP Co de Phone Number [facility] [address] [place] [address], * (ABNORMAL) Magnesium (07/24/2024 7:23 AM EST) Magnesium 1.7(L) 1.9 - 2.6 mg/dL LAB CHEMISTRY METHOD 07/24/2024 10:52 AM EST [facility] Blood Venous blood specimen / Unknown Venipuncture / Unknown 07/24/2024 7:23 AM EST 07/24/2024 9:40 AM EST Michelle Rucker MD LAB BLOOD ORDERABLES Fin al Result Performing Organization Address [facility] Co de Phone Number [facility] [address] [place] [address], * Thyroid stimulating hormone (07/24/2024 7:23 AM EST) TSH 3.67 0.40 - 4.00 mcIU/mL LAB CHEMISTRY METHOD 07/24/2024 11:01 AM EST [facility] Blood Venous blood specimen / Unknown Venipuncture / Unknown 07/24/2024 7:23 AM EST 07/24/2024 9:40 AM EST Michelle Rucker MD LAB BLOOD ORDERABLES Fin al Result Performing Organization Address City/[facility]/ZIP Co de Phone Number [facility] [address] [place] [address], [place] [phone] * (ABNORMAL) Hemoglobin A1c (07/24/2024 7:23 AM EST) Hemoglobin A1C 8.3(H) <6.5 % LAB CHEMISTRY METHOD 07/24/2024 1:50 PM EST [facility] Mean Bld Glu Estim. 192 mg/dL LAB CHEMISTRY METHOD 07/24/2024 1:50 PM [facility] Blood Venous blood specimen / Unknown Venipuncture / Unknown 07/24/2024 7:23 AM EST 07/24/2024 9:40 AM EST us Michelle Rucker MD LAB BLOOD ORDERABLES Fin al Result [facility] [address] [place] [address], * (ABNORMAL) Renal function panel (07/24/2024 7:23 AM EST) [facility] Sodium 130(L) 133 - 145 mmol/L LAB CHEMISTRY METHOD 07/24/2024 10:55 AM [facility] Potassium 5.3 3.5 - 5.5 mmol/L LAB CHEMISTRY METHOD 07/24/2024 10:55 AM [facility] Chloride 98 96 - 110 mmol/L LAB CHEMISTRY METHOD 07/24/2024 10:55 AM [facility] CO2 26 21 - 32 mmol/L LAB CHEMISTRY METHOD 07/24/2024 10:55 AM [facility] Anion Gap 6 3 - 11 LAB CHEMISTRY METHOD 07/24/2024 10:55 AM [facility] Glucose 335(H) 70 - 100 mg/dL LAB CHEMISTRY METHOD 07/24/2024 10:55 AM [facility] BUN 23 5 - 25 mg/dL LAB CHEMISTRY METHOD 07/24/2024 10:55 AM [facility] Creatinine 1.22 0.70 - 1.30 mg/dL LAB CHEMISTRY METHOD 07/24/2024 10:55 AM [facility] eGFR 65 >=60 mL/min/1. 73m2 LAB CHEMISTRY METHOD 07/24/2024 10:55 AM [facility] Comment:Calculation based on the Chronic Kidney Disease Epidemiology Collaboration (CKD-EPI) equation refit without adjustment for race. BUN/Creatinine Ratio 18.9 LAB CHEMISTRY METHOD 07/24/2024 10:55 AM [facility] Albumin 2.5(L) 3.2 - 5.0 g/dL LAB CHEMISTRY METHOD 07/24/2024 10:55 AM [facility] Calcium 9.4 8.5 - 10.5 mg/dL LAB CHEMISTRY METHOD 07/24/2024 10:55 AM [facility] Phosphorus 3.7 2.5 - 4.5 mg/dL LAB CHEMISTRY METHOD 07/24/2024 10:55 AM [facility] Blood Venous blood specimen / Unknown Venipuncture / Unknown 07/24/2024 7:23 AM EST 07/24/2024 9:40 AM EST Michelle Rucker MD LAB BLOOD ORDERABLES Fin al Result [facility] [address] [place] [address], * (ABNORMAL) Basic metabolic panel (07/24/2024 7:23 AM EST) Sodium 130(L) 133 - 145 mmol/L LAB CHEMISTRY METHOD 07/24/2024 10:55 AM [facility] Potassium 5.3 3.5 - 5.5 mmol/L LAB CHEMISTRY METHOD 07/24/2024 10:55 AM [facility] Chloride 98 96 - 110 mmol/L LAB CHEMISTRY METHOD 07/24/2024 10:55 AM [facility] CO2 26 21 - 32 mmol/L LAB CHEMISTRY METHOD 07/24/2024 10:55 AM [facility] Anion Gap 6 3 - 11 LAB CHEMISTRY METHOD 07/24/2024 10:55 AM [facility] Glucose 335(H) 70 - 100 mg/dL LAB CHEMISTRY METHOD 07/24/2024 10:55 AM [facility] BUN 23 5 - 25 mg/dL LAB CHEMISTRY METHOD 07/24/2024 10:55 AM [facility] Creatinine 1.22 0.70 - 1.30 mg/dL LAB CHEMISTRY METHOD 07/24/2024 10:55 AM [facility] eGFR 65 >=60 mL/min/1. 73m2 LAB CHEMISTRY METHOD 07/24/2024 10:55 AM [facility] Comment: Calculation based on the Chronic Kidney Disease Epidemiology Collaboration (CKD-EPI) equation refit without adjustment for race. Calculation based on the Chronic Kidney Disease Epidemiology Collaboration (CKD-EPI) equation refit without adjustment for race. BUN/Creatinine Ratio 18.9 LAB CHEMISTRY METHOD 07/24/2024 10:55 AM [facility] Calcium 9.4 8.5 - 10.5 mg/dL LAB CHEMISTRY METHOD 07/24/2024 10:55 AM [facility] Blood Venous blood specimen / Unknown Venipuncture / Unknown 07/24/2024 7:23 AM EST 07/24/2024 9:40 AM EST us Michelle Rucker MD LAB BLOOD ORDERABLES Fin al Result [facility] [address] [place] [address], * (ABNORMAL) Complete blood count (07/24/2024 7:23 AM EST) WBC 10.2 4.8 - 10.8 K/mcL LAB HEMETOLOGY METHOD 07/24/2024 10:29 AM EST [facility] RBC 4.40(L) 4.50 - 5.50 M/mcL LAB HEMETOLOGY METHOD 07/24/2024 10:29 AM [facility] Hemoglobin 11.3(L) 13.5 - 17.5 g/dL LAB HEMETOLOGY METHOD 07/24/2024 10:29 AM [facility] Hematocrit 36.1(L) 42.0 - 54.0 % LAB HEMETOLOGY METHOD 07/24/2024 10:29 AM [facility] MCV 82.8 79.0 - 98.0 FL LAB HEMETOLOGY METHOD 07/24/2024 10:29 AM [facility] MCH 25.9(L) 27.0 - 32.0 pcg LAB HEMETOLOGY METHOD 07/24/2024 10:29 AM [facility] MCHC 31.3(L) 32.0 - 37.0 g/dL LAB HEMETOLOGY METHOD 07/24/2024 10:29 AM [facility] RDW 16.6(H) 11.0 - 15.0 % LAB HEMETOLOGY METHOD 07/24/2024 10:29 AM [facility] Platelets 276 130 - 400 K/mcL LAB HEMETOLOGY METHOD 07/24/2024 10:29 AM [facility] MPV 10.5 7.0 - 11.0 FL LAB HEMETOLOGY METHOD 07/24/2024 10:29 AM [facility] NRBC 0.0 <1.0 % LAB HEMETOLOGY METHOD 07/24/2024 10:29 AM [facility] NRBC Absolute 0.00 <0.10 K/mcL LAB HEMETOLOGY METHOD 07/24/2024 10:29 AM [facility] Blood Venous blood specimen / Unknown Venipuncture / Unknown 07/24/2024 7:23 AM EST 07/24/2024 9:40 AM EST Michelle Rucker MD LAB BLOOD ORDERABLES Fin al Result [facility] ([facility]) [facility] [address] [place] [address], documented in this encounter Visit Diagnoses Diagnosis Malignant (primary) neoplasm, unspecified (CMS/[facility] V24, [facility] V28) Unspecified complication of kidney transplant Type 1 diabetes mellitus with diabetic neuropathy, unspecified (CMS/[facility] V24, [facility] V28) Gastro-esophageal reflux disease without esophagitis Vitamin D deficiency, unspecified documented in this encounter Additional Health Concerns Infection Onset Date Last Indicated Resolved Time C. difficile Rule-Out 08/14/2024 08/13/20242024 11:06 AM EST MDRO (other) 12/15/2024 12/15/2024 documented as of this encounter Care Teams Blanket Maker Relationship Specialty Start Date End Date Michelle Rucker MD [address] [place] [id number] PCP - General Family Medicine 05/06/24 documented as of this encounter
--- OUTSIDE RECORDS SUMMARY | 2025-04-30 12:17 | XMS_ITS | Encounter Summary ---
Author Organization [facility] Address [address] [place] [phone] Care Team Providers Care Hog Pusher Name Role Phone Michelle Rucker MD Primary Care Provider + Encounter Details Date Type Department Care Team (Late st Contact Info) Description 08/26/2024 Lab Requisition [facility] - Main Lab 299 [facility] [place] [address] Michelle Rucker MD [address] [address] Type 1 diabetes mellitus with [...] developed and the performance characteristics determined by [facility]. This confirmation testing has not been cleared or approved by the FDA. The laboratory is regulated under CLIA as qualified to perform high-complexity testing. This test is used for patient testing purposes. It should not be regarded as investigational or for research. Test performed at [facility], [address] , [place] [address] Brittanie Horan MD, PhD - Ui Developer [employer] Blood Venous blood specimen / Unknown Venipuncture / Unknown 08/27/2024 6:26 AM EST 08/27/2024 8:10 AM EST us Michelle Rucker MD LAB BLOOD ORDERABLES Fin al Result [facility] [address] [place] [address] * (ABNORMAL) Basic metabolic panel (08/27/2024 6:26 AM EST) Sodium 132(L) 133 - 145 mmol/L LAB CHEMISTRY METHOD 08/27/2024 9:15 AM [facility] Potassium 4.2 3.5 - 5.5 mmol/L LAB CHEMISTRY METHOD 08/27/2024 9:15 AM [facility] Chloride 98 96 - 110 mmol/L LAB CHEMISTRY METHOD 08/27/2024 9:15 AM [facility] CO2 26 21 - 32 mmol/L LAB CHEMISTRY METHOD 08/27/2024 9:15 AM [facility] Anion Gap 8 3 - 11 LAB CHEMISTRY METHOD 08/27/2024 9:15 AM [facility] Glucose 282(H) 70 - 100 mg/dL LAB CHEMISTRY METHOD 08/27/2024 9:15 AM [facility] BUN 29(H) 5 - 25 mg/dL LAB CHEMISTRY METHOD 08/27/2024 9:15 AM [facility] Creatinine 1.29 0.70 - 1.30 mg/dL LAB CHEMISTRY METHOD 08/27/2024 9:15 AM [facility] eGFR 61 >=60 mL/min/1. 73m2 LAB CHEMISTRY METHOD 08/27/2024 9:15 AM [facility] Comment:Calculation based on the Chronic Kidney Disease Epidemiology Collaboration (CKD-EPI) equation refit without adjustment for race. BUN/Creatinine Ratio 22.5 LAB CHEMISTRY METHOD 08/27/2024 9:15 AM [facility] Calcium 9.8 8.5 - 10.5 mg/dL LAB CHEMISTRY METHOD 08/27/2024 9:15 AM [facility] Blood Venous blood specimen / Unknown Venipuncture / Unknown 08/27/2024 6:26 AM EST 08/27/2024 8:10 AM EST us Michelle Rucker MD LAB BLOOD ORDERABLES Fin al Result [facility] [address] [place] [address], * (ABNORMAL) Complete blood count (08/27/2024 6:26 AM EST) [facility] WBC 9.7 4.8 - 10.8 K/mcL LAB HEMETOLOGY METHOD 08/27/2024 8:48 AM [facility] RBC 4.00(L) 4.50 - 5.50 M/mcL LAB HEMETOLOGY METHOD 08/27/2024 8:48 AM [facility] Hemoglobin 10.1(L) 13.5 - 17.5 g/dL LAB HEMETOLOGY METHOD 08/27/2024 8:48 AM [facility] Hematocrit 31.6(L) 42.0 - 54.0 % LAB HEMETOLOGY METHOD 08/27/2024 8:48 AM [facility] MCV 79.8 79.0 - 98.0 FL LAB HEMETOLOGY METHOD 08/27/2024 8:48 AM [facility] MCH 25.5(L) 27.0 - 32.0 pcg LAB HEMETOLOGY METHOD 08/27/2024 8:48 AM [facility] MCHC 32.0 32.0 - 37.0 g/dL LAB HEMETOLOGY METHOD 08/27/2024 8:48 AM [facility] RDW 15.0 11.0 - 15.0 % LAB HEMETOLOGY METHOD 08/27/2024 8:48 AM [facility] Platelets 348 130 - 400 K/mcL LAB HEMETOLOGY METHOD 08/27/2024 8:48 AM [facility] MPV 10.1 7.0 - 11.0 FL LAB HEMETOLOGY METHOD 08/27/2024 8:48 AM [facility] NRBC 0.0 <1.0 % LAB HEMETOLOGY METHOD 08/27/2024 8:48 AM EST [facility] NRBC Absolute 0.00 <0.10 K/mcL LAB HEMETOLOGY METHOD 08/27/2024 8:48 AM EST [facility] Blood Venous blood specimen / Unknown Venipuncture / Unknown 08/27/2024 6:26 AM EST 08/27/2024 8:10 AM EST us Michelle Rucker MD LAB BLOOD ORDERABLES Fin al Result [facility] [address] [place] [address], documented in this encounter Visit Diagnoses Diagnosis Type 1 diabetes mellitus with diabetic neuropathy, unspecified ([facility] V24, [facility] V28) 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 Hyperlipidemia, unspecified End stage renal disease ([facility] V24, [facility] V28) End stage renal disease documented in this encounter Additional Health Concerns Infection Onset Date Last Indicated Resolved Time MDRO (other) 12/15/2024 12/15/2024 documented as of this encounter Care Teams Hog Pusher Relationship Specialty Start Date End Date Michelle Rucker MD [address] [place] [id number] PCP - General Family Medicine 05/06/24 documented as of this encounter
--- OUTSIDE RECORDS SUMMARY | 2025-04-30 12:17 | XMS_ITS | Encounter Summary ---
Author Organization [facility] Address [address] [place] [address] Care Team Providers Care It Trainee Name Role Phone Michelle Rucker MD Primary Care Provider + Encounter Details Date Type Department Care Team (Late st Contact Info) Description 10/06/2024 Lab Requisition [facility] - Main Lab 299 [facility] [place] [place] [address] Michelle Rucker MD [address] [address] Other transplanted organ and tissue [...] developed and the performance characteristics determined by [facility]. This confirmation testing has not been cleared or approved by the FDA. The laboratory is regulated under CLIA as qualified to perform high-complexity testing. This test is used for patient testing purposes. It should not be regarded as investigational or for research. Test performed at [facility], [address], [place] [address] Brittanie Horan MD, PhD - Pathology Secretary/Transcriptionist Blood Venous blood specimen / Unknown Venipuncture / Unknown 10/06/2024 7:06 AM EDT 10/06/2024 10:10 AM EDT Michelle Rucker MD LAB BLOOD ORDERABLES Fin al Result [facility] [address] [place] [address] documented in this encounter Visit Diagnoses Diagnosis Other transplanted organ and tissue status documented in this encounter Additional Health Concerns Infection Onset Date Last Indicated Resolved Time MDRO (other) 12/15/2024 12/15/2024 documented as of this encounter Care Teams It Trainee Relationship Specialty Start Date End Date Michelle Rucker MD [address] [address] PCP - General Family Medicine 05/06/24 documented as of this encounter
--- OUTSIDE RECORDS SUMMARY | 2025-04-30 12:17 | XMS_ITS | Encounter Summary ---
Author Organization [facility] Address [address] [place] [phone] Care Team Providers Care Retaining Room Cutter Name Role Phone Michelle Rucker MD Primary Care Provider + Encounter Details Date Type Department Care Team (Late st Contact Info) Description 08/12/2024 Lab Requisition [facility] - Main Lab 299 [facility] [place] [address] Michelle Rucker MD [address] [address] Type 1 diabetes mellitus with [...] mmol/L LAB CHEMISTRY METHOD 08/13/2024 12:02 PM [facility] Potassium 4.4 3.5 - 5.5 mmol/L LAB CHEMISTRY METHOD 08/13/2024 12:02 PM [facility] Chloride 95(L) 96 - 110 mmol/L LAB CHEMISTRY METHOD 08/13/2024 12:02 PM [facility] CO2 31 21 - 32 mmol/L LAB CHEMISTRY METHOD 08/13/2024 12:02 PM [facility] Anion Gap 7 3 - 11 LAB CHEMISTRY METHOD 08/13/2024 12:02 PM [facility] Glucose 175(H) 70 - 100 mg/dL LAB CHEMISTRY METHOD 08/13/2024 12:02 PM [facility] BUN 34(H) 5 - 25 mg/dL LAB CHEMISTRY METHOD 08/13/2024 12:02 PM [facility] Creatinine 1.27 0.70 - 1.30 mg/dL LAB CHEMISTRY METHOD 08/13/2024 12:02 PM [facility] eGFR 62 >=60 mL/min/1. 73m2 LAB CHEMISTRY METHOD 08/13/2024 12:02 PM [facility] Comment:Calculation based on the Chronic Kidney Disease Epidemiology Collaboration (CKD-EPI) equation refit without adjustment for race. BUN/Creatinine Ratio 26.8 LAB CHEMISTRY METHOD 08/13/2024 12:02 PM [facility] Calcium 9.6 8.5 - 10.5 mg/dL LAB CHEMISTRY METHOD 08/13/2024 12:02 PM [facility] Blood Venous blood specimen / Unknown Venipuncture / Unknown 08/13/2024 7:21 AM EST 08/13/2024 11:12 AM EST us Michelle Rucker MD LAB BLOOD ORDERABLES Fin al Result [facility] [address] [place] [address], [place] [phone] * (ABNORMAL) Complete blood count (08/13/2024 7:21 AM EST) WBC 11.4(H) 4.8 - 10.8 K/mcL LAB HEMETOLOGY METHOD 08/13/2024 11:35 AM [facility] RBC 3.50(L) 4.50 - 5.50 M/mcL LAB HEMETOLOGY METHOD 08/13/2024 11:35 AM [facility] Hemoglobin 9.2(L) 13.5 - 17.5 g/dL LAB HEMETOLOGY METHOD 08/13/2024 11:35 AM [facility] Hematocrit 29.8(L) 42.0 - 54.0 % LAB HEMETOLOGY METHOD 08/13/2024 11:35 AM [facility] MCV 84.2 79.0 - 98.0 FL LAB HEMETOLOGY METHOD 08/13/2024 11:35 AM [facility] MCH 26.0(L) 27.0 - 32.0 pcg LAB HEMETOLOGY METHOD 08/13/2024 11:35 AM [facility] MCHC 30.9(L) 32.0 - 37.0 g/dL LAB HEMETOLOGY METHOD 08/13/2024 11:35 AM [facility] RDW 15.2(H) 11.0 - 15.0 % LAB HEMETOLOGY METHOD 08/13/2024 11:35 AM [facility] Platelets 360 130 - 400 K/mcL LAB HEMETOLOGY METHOD 08/13/2024 11:35 AM [facility] MPV 11.3(H) 7.0 - 11.0 FL LAB HEMETOLOGY METHOD 08/13/2024 11:35 AM EST [facility] NRBC 0.0 <1.0 % LAB [facility] METHOD 08/13/2024 11:35 AM EST [facility] NRBC Absolute 0.00 <0.10 K/mcL LAB HEMETOLOG METHOD 08/13/2024 11:35 AM EST [facility] Blood Venous blood specimen / Unknown Venipuncture / Unknown 08/13/2024 7:21 AM EST 08/13/2024 11:12 AM EST Michelle Rucker MD LAB BLOOD ORDERABLES Fin al Result [facility] [address] [place] [address], documented in this encounter Visit Diagnoses Diagnosis [...] documented as of this encounter Care Teams Retaining Room Cutter Relationship Specialty Start Date End Date Michelle Rucker MD [address] [place] [phone] PCP - General Family Medicine 05/06/24 documented as of this encounter
--- OUTSIDE RECORDS SUMMARY | 2025-04-30 12:17 | XMS_ITS | Encounter Summary ---
Author Organization [facility] Address [address] [place] [phone] Care Team Providers Care Coordinator Integrated Marketing Name Role Phone Michelle Rucker MD Primary Care Provider + Encounter Details Date Type Department Care Team (Late st Contact Info) Description 08/19/2024 Lab Requisition [facility] - Main Lab 299 [facility] [place] [address] Michelle Rucker MD [address] [address] Type 1 diabetes mellitus with [...] mmol/L LAB CHEMISTRY METHOD 08/20/2024 11:10 AM [facility] Potassium 4.4 3.5 - 5.5 mmol/L LAB CHEMISTRY METHOD 08/20/2024 11:10 AM [facility] Chloride 98 96 - 110 mmol/L LAB CHEMISTRY METHOD 08/20/2024 11:10 AM [facility] CO2 31 21 - 32 mmol/L LAB CHEMISTRY METHOD 08/20/2024 11:10 AM [facility] Anion Gap 4 3 - 11 LAB CHEMISTRY METHOD 08/20/2024 11:10 AM [facility] Glucose 158(H) 70 - 100 mg/dL LAB CHEMISTRY METHOD 08/20/2024 11:10 AM [facility] BUN 28(H) 5 - 25 mg/dL LAB CHEMISTRY METHOD 08/20/2024 11:10 AM [facility] Creatinine 1.21 0.70 - 1.30 mg/dL LAB CHEMISTRY METHOD 08/20/2024 11:10 AM [facility] eGFR 66 >=60 mL/min/1. 73m2 LAB CHEMISTRY METHOD 08/20/2024 11:10 AM [facility] Comment:Calculation based on the Chronic Kidney Disease Epidemiology Collaboration (CKD-EPI) equation refit without adjustment for race. BUN/Creatinine Ratio 23.1 LAB CHEMISTRY METHOD 08/20/2024 11:10 AM [facility] Calcium 9.7 8.5 - 10.5 mg/dL LAB CHEMISTRY METHOD 08/20/2024 11:10 AM [facility] Blood Venous blood specimen / Unknown Venipuncture / Unknown 08/20/2024 7:05 AM EST 08/20/2024 9:40 AM EST us Michelle Rucker MD LAB BLOOD ORDERABLES Fin al Result [facility] [address] [place] [address], * (ABNORMAL) Complete blood count (08/20/2024 7:05 AM EST) WBC 8.6 4.8 - 10.8 K/mcL LAB HEMETOLOGY METHOD 08/20/2024 9:55 AM [facility] RBC 3.90(L) 4.50 - 5.50 M/mcL LAB HEMETOLOGY METHOD 08/20/2024 9:55 AM [facility] Hemoglobin 10.0(L) 13.5 - 17.5 g/dL LAB HEMETOLOGY METHOD 08/20/2024 9:55 AM [facility] Hematocrit 32.3(L) 42.0 - 54.0 % LAB HEMETOLOGY METHOD 08/20/2024 9:55 AM [facility] MCV 83.2 79.0 - 98.0 FL LAB HEMETOLOGY METHOD 08/20/2024 9:55 AM [facility] MCH 25.8(L) 27.0 - 32.0 pcg LAB HEMETOLOGY METHOD 08/20/2024 9:55 AM [facility] MCHC 31.0(L) 32.0 - 37.0 g/dL LAB HEMETOLOGY METHOD 08/20/2024 9:55 AM [facility] RDW 14.8 11.0 - 15.0 % LAB HEMETOLOGY METHOD 08/20/2024 9:55 AM [facility] Platelets 369 130 - 400 K/mcL LAB HEMETOLOGY METHOD 08/20/2024 9:55 AM [facility] MPV 10.0 7.0 - 11.0 FL LAB HEMETOLOGY METHOD 08/20/2024 9:55 AM EST [facility] NRBC 0.0 <1.0 % LAB HEMETOLOGY METHOD 08/20/2024 9:55 AM EST [facility] NRBC Absolute 0.00 <0.10 K/mcL LAB HEMETOLOGY METHOD 08/20/2024 9:55 AM EST [facility] Blood Venous blood specimen / Unknown Venipuncture / Unknown 08/20/2024 7:05 AM EST 08/20/2024 9:40 AM EST Michelle Rucker MD LAB BLOOD ORDERABLES Fin al Result [facility] [address] [place] [address], documented in this encounter Visit Diagnoses Diagnosis Type 1 diabetes mellitus with diabetic neuropathy, unspecified (CMS/HCC V24, CMS/HCC V28) 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
--- OUTSIDE RECORDS SUMMARY | 2025-04-30 12:17 | XMS_ITS | Encounter Summary ---
Author Organization [facility] Address [address] [place] [address] Care Team Providers Care Blueprinting And Photocopy Supervisor Name Role Phone Michelle Rucker MD Primary Care Provider + Encounter Details Date Type Department Care Team (Late st Contact Info) Description 10/28/2024 Lab Requisition [facility] - Main Lab 299 [facility] [place] [address] Michelle Rucker MD 819 [facility] 1 [place], [place] [phone] Urinary tract infection, site not specified Social [...] * Culture urine (10/28/2024 12:00 AM EDT) [facility] Culture, Urine <10,000 CFU/mL Yeast, insignificant count, no further workup 10/29/2024 10:40 AM [facility] Urine Urine specimen obtained by clean catch procedure / Unknown Non-blood Collection / Unknown 10/28/2024 10/28/2024 12:21 PM EDT us Michelle Rucker MD LAB MICROBIOLOGY - [facility] AL ORDERABLES Final Result [facility] 299 [place] [address], [place] [phone] * (ABNORMAL) Urinalysis with reflex microscopic and culture (10/28/2024 12:00 AM EDT) [facility] Specific [place] Urine 1.010 1.003 - 1.030 LAB URINALYSIS - AUTOMATED METHOD 10/28/2024 12:21 PM [facility] pH, Urine 7.0 5.0 - 8.0 pH LAB URINALYSIS - AUTOMATED METHOD 10/28/2024 12:21 PM [facility] Leukocytes, Urine Large(A) Negative LAB URINALYSIS - AUTOMATED METHOD 10/28/2024 12:21 PM [facility] Nitrite, Urine Negative Negative LAB URINALYSIS - AUTOMATED METHOD 10/28/2024 12:21 PM [facility] Protein, Urine 100(A) <=Trace mg/dL LAB URINALYSIS - AUTOMATED METHOD 10/28/2024 12:21 PM [facility] Glucose, Urine Negative Negative mg/dL LAB URINALYSIS - AUTOMATED METHOD 10/28/2024 12:21 PM [facility] Ketones, Urine Negative Negative mg/dL LAB URINALYSIS - AUTOMATED METHOD 10/28/2024 12:21 PM [facility] Urobilinogen , Urine 0.2 0.2 - 1.0 mg/dL LAB URINALYSIS - AUTOMATED METHOD 10/28/2024 12:21 PM [facility] Bilirubin, Urine Negative Negative LAB URINALYSIS - AUTOMATED METHOD 10/28/2024 12:21 PM [facility] Blood, Urine Moderate(A) Negative LAB URINALYSIS - AUTOMATED METHOD 10/28/2024 12:21 PM [facility] RBC, Urine 2.3 0 - 4 /HPF LAB URINALYSIS - AUTOMATED METHOD 10/28/2024 12:21 PM [facility] WBC, Urine 647.0(H) 0 - 4 /HPF LAB URINALYSIS - AUTOMATED METHOD 10/28/2024 12:21 PM [facility] Squamous Epithelial, Urine 28 0 - 60 /LPF LAB URINALYSIS - AUTOMATED METHOD 10/28/2024 12:21 PM [facility] Bacteria, Urine Few(A) Negative /HPF LAB URINALYSIS - AUTOMATED METHOD 10/28/2024 12:21 PM [facility] Hyaline Casts, Urine 3.2(H) 0 - 3 /LPF LAB URINALYSIS - AUTOMATED METHOD 10/28/2024 12:21 PM [facility] Yeast, Urine Present(A) None /HPF LAB URINALYSIS - AUTOMATED METHOD 10/28/2024 12:21 PM [facility] Urine Urine specimen obtained by clean catch procedure / Unknown Non-blood Collection / Unknown 10/28/2024 10/28/2024 10:05 AM EDT us Michelle Rucker MD LAB URINE ORDERABLES Fin al Result [facility] [address] [place] [address], * Scott urine culture tube (10/28/2024 12:00 AM EDT) Extra Tube Hold for add-ons. 10/28/2024 1:01 PM EDT [facility] Comment:Auto resulted. Urine Urine specimen obtained by clean catch procedure / Unknown Non-blood Collection / Unknown 10/28/2024 10/28/2024 10:05 AM EDT Michelle Rucker MD LAB URINE ORDERABLES Fin al Result [facility] [address] [place] [address], documented in this encounter Visit Diagnoses Diagnosis Urinary tract infection, site not specified documented in this encounter Additional Health Concerns Infection Onset Date Last Indicated Resolved Time MDRO (other) 12/15/2024 12/15/2024 documented as of this encounter Care Teams Blueprinting And Photocopy Supervisor Relationship Specialty Start Date End Date Michelle Rucker MD [address] [place] [phone] PCP - General Family Medicine 05/06/24 documented as of this encounter
--- OUTSIDE RECORDS SUMMARY | 2025-04-30 12:17 | XMS_ITS | Encounter Summary ---
Author Organization [facility] Address [address] [address] Phone Care Team Providers Care Regrinder Name Role Phone Tennille Linton NP Primary Care Provider + Encounter Details Date Type Department Care Team (Late st Contact Info) Description 11/30/2024 Documentation Only [facility], [address] [place] [address] [place] [address] [place] [phone] Social History Tobacco Use Types Packs/Day [...] Visit [facility] [address] [place] [address] Andrey Phan MD [address] [place] [address] documented as of this encounter Visit Diagnoses Not on filedocumented in this encounter Care Teams Regrinder Relationship Specialty Start Date End Date Tennille Linton NP [address] [place] [phone] PCP - General Nurse Practitioner 08/07/23 documented as of this encounter
--- OUTSIDE RECORDS SUMMARY | 2025-04-30 12:17 | XMS_ITS | Encounter Summary ---
Author Organization [facility] Address [address] [place] [phone] Care Team Providers Care Hot Car Charger Name Role Phone Michelle Rucker MD Primary Care Provider + Encounter Details Date Type Department Care Team (Late st Contact Info) Description 09/03/2024 Lab Requisition [facility] - Main Lab 299 [facility] [place] [address] Michelle Rucker MD [address] [address] Type 1 diabetes mellitus with [...] mmol/L LAB CHEMISTRY METHOD 09/03/2024 10:30 AM [facility] Potassium 4.2 3.5 - 5.5 mmol/L LAB CHEMISTRY METHOD 09/03/2024 10:30 AM [facility] Chloride 99 96 - 110 mmol/L LAB CHEMISTRY METHOD 09/03/2024 10:30 AM [facility] CO2 30 21 - 32 mmol/L LAB CHEMISTRY METHOD 09/03/2024 10:30 AM [facility] Anion Gap 7 3 - 11 LAB CHEMISTRY METHOD 09/03/2024 10:30 AM [facility] Glucose 157(H) 70 - 100 mg/dL LAB CHEMISTRY METHOD 09/03/2024 10:30 AM [facility] BUN 37(H) 5 - 25 mg/dL LAB CHEMISTRY METHOD 09/03/2024 10:30 AM [facility] Creatinine 1.36(H) 0.70 - 1.30 mg/dL LAB CHEMISTRY METHOD 09/03/2024 10:30 AM [facility] eGFR 57(L) >=60 mL/min/1. 73m2 LAB CHEMISTRY METHOD 09/03/2024 10:30 AM [facility] Comment:Calculation based on the Chronic Kidney Disease Epidemiology Collaboration (CKD-EPI) equation refit without adjustment for race. BUN/Creatinine Ratio 27.2 LAB CHEMISTRY METHOD 09/03/2024 10:30 AM [facility] Calcium 9.6 8.5 - 10.5 mg/dL LAB CHEMISTRY METHOD 09/03/2024 10:30 AM [facility] Blood Venous blood specimen / Unknown Venipuncture / Unknown 09/03/2024 6:15 AM EDT 09/03/2024 10:24 AM EDT us Michelle Rucker MD LAB BLOOD ORDERABLES Fin al Result [facility] [address] [place] [address], [place] [phone] * (ABNORMAL) Complete blood count (09/03/2024 6:15 AM EDT) [facility] WBC 7.5 4.8 - 10.8 K/mcL LAB HEMETOLOGY METHOD 09/03/2024 10:04 AM EDT [facility] RBC 3.90(L) 4.50 - 5.50 M/mcL LAB HEMETOLOGY METHOD [facility] Hemoglobin 9.9(L) 13.5 - 17.5 g/dL LAB HEMETOLOGY METHOD 09/03/2024 10:04 AM EDT [facility] Hematocrit 30.8(L) 42.0 - 54.0 % LAB HEMETOLOGY METHOD 09/03/2024 [facility] MCV 79.6 79.0 - 98.0 FL LAB HEMETOLOGY METHOD 09/03/2024 10:[facility] MCH 25.6(L) 27.0 - 32.0 pcg LAB HEMETOLOGY METHOD 09/03/2024 10:04 AM EDT [facility] MCHC 32.1 32.0 - 37.0 g/dL LAB HEMETOLOGY METHOD 09/03/2024 10[facility] RDW 14.6 11.0 - 15.0 % LAB HEMETOLOGY METHOD 09/03/2024 10:04 AM [facility] Platelets 313 130 - 400 K/mcL LAB HEMETOLOGY METHOD 09/03/2024 10:04 AM EDT [facility] MPV 10.4 7.0 - 11.0 FL LAB HEMETOLOGY METHOD 09/03/2024 10:04 AM EDT [facility] NRBC 0.0 <1.0 % LAB HEMETOLOGY METHOD 09/03/2024 10:04 AM EDT [facility] NRBC Absolute 0.00 <0.10 K/mcL LAB HEMETOLOGY METHOD 09/03/2024 10:04 AM EDT [facility] Blood Venous blood specimen / Unknown Venipuncture / Unknown 09/03/2024 6:15 AM EDT 09/03/2024 10:03 AM EDT Michelle Rucker MD LAB BLOOD ORDERABLES Fin al Result [facility] [address] [place] [address], documented in this encounter Visit Diagnoses Diagnosis Type 1 diabetes mellitus with diabetic neuropathy, unspecified (CMS/HCC V24, CMS/[facility] V28) 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
--- OUTSIDE RECORDS SUMMARY | 2025-04-30 12:17 | XMS_ITS | Encounter Summary ---
Author Organization [facility] Address [address] [place] [phone] Care Team Providers Care Information Security Architect Name Role Phone Michelle Rucker MD Primary Care Provider + Encounter Details Date Type Department Care Team (Late st Contact Info) Description 09/08/2024 Lab Requisition [facility] - Main Lab 299 [facility] [place] [address] Michelle Rucker MD [address] [address] Other medical staff coordinator (current) drug therapy; Benign prostatic hyperplasia without [...] LEVEL Routine 09/08/2024 7:02 AM EDT Other residential (current) drug therapy Benign prostatic hyperplasia without [...] the performance characteristics determined by [facility]. This confirmation testing has not been cleared or approved by the FDA. The laboratory is regulated under CLIA as qualified to perform high-complexity testing. This test is used for patient testing purposes. It should not be regarded as investigational or for research. Test performed at [facility], [address], [place] [address] Brittanie Horan MD, PhD - Clay Press Operator Blood Venous blood specimen / Unknown Venipuncture / Unknown 09/08/2024 7:02 AM EDT 09/08/2024 9:18 AM EDT Michelle Rucker MD LAB BLOOD ORDERABLES Fin al Result [facility] [address] [place] [address] documented in this encounter Visit Diagnoses Diagnosis Other residential (current) drug therapy Benign prostatic hyperplasia without lower urinary tract symptoms documented in this encounter Additional Health Concerns Infection Onset Date Last Indicated Resolved Time MDRO (other) 12/15/2024 12/15/2024 documented as of this encounter Care Teams Information Security Architect Relationship Specialty Start Date End Date Michelle Rucker MD [address] [place] [address] PCP - General Family Medicine 05/06/24 documented as of this encounter
--- OUTSIDE RECORDS SUMMARY | 2025-04-30 12:17 | XMS_ITS | Encounter Summary ---
Author Organization [facility] Address [address] [address] Phone Care Team Providers Care Grid Casting Machine Operator Helper Name Role Phone Tennille Linton NP Primary Care Provider + Encounter Details Date Type Department Care Team (Late st Contact Info) Description 03/04/2025 Documentation Only [facility], [address] [place] [address] [place] [address] [place] [phone] Social History Tobacco Use Types Packs/Day [...] Visit [facility] [address] [place] [address] Andrey Phan MD [address] [place] [address] documented as of this encounter Visit Diagnoses Not on filedocumented in this encounter Care Teams Grid Casting Machine Operator Helper Relationship Specialty Start Date End Date Tennille Linton NP [address] [place] [phone] PCP - General Nurse Practitioner 08/07/23 documented as of this encounter
--- OUTSIDE RECORDS SUMMARY | 2025-04-30 12:17 | XMS_ITS | Encounter Summary ---
Author Organization [facility] Address [address] [place] [phone] Care Team Providers Care Audiovisual Equipment Operator Name Role Phone Michelle Rucker MD Primary Care Provider + Encounter Details Date Type Department Care Team (Late st Contact Info) Description 08/08/2024 Lab Requisition [facility] - Main Lab [address] [place] [address] Michelle Rucker MD [address] [phone] Hyperlipidemia, unspecified Social History Tobacco Use Types [...] LAB CHEMISTRY METHOD 08/08/2024 9:26 AM EST [facility] Potassium 4.6 3.5 - 5.5 mmol/L LAB CHEMISTRY METHOD 08/08/2024 9:26 AM EST [facility] Chloride 96 96 - 110 mmol/L LAB CHEMISTRY METHOD 08/08/2024 9:26 AM EST [facility] CO2 28 21 - 32 mmol/L LAB CHEMISTRY METHOD 08/08/2024 9:26 AM [facility] Anion Gap 6 3 - 11 LAB CHEMISTRY METHOD 08/08/2024 9:26 AM [facility] Glucose 257(H) 70 - 100 mg/dL LAB CHEMISTRY METHOD 08/08/2024 9:26 AM [facility] BUN 25 5 - 25 mg/dL LAB CHEMISTRY METHOD 08/08/2024 9:26 AM [facility] Creatinine 1.44(H) 0.70 - 1.30 mg/dL LAB CHEMISTRY METHOD 08/08/2024 9:26 AM [facility] eGFR 54(L) >=60 mL/min/1. 73m2 LAB CHEMISTRY METHOD 08/08/2024 9:26 AM [facility] Comment:Calculation based on the Chronic Kidney Disease Epidemiology Collaboration (CKD-EPI) equation refit without adjustment for race. BUN/Creatinine Ratio 17.4 LAB CHEMISTRY METHOD 08/08/2024 9:26 AM [facility] Calcium 9.4 8.5 - 10.5 mg/dL LAB CHEMISTRY METHOD 08/08/2024 9:26 AM [facility] Blood Venous blood specimen / Unknown Venipuncture / Unknown 08/08/2024 6:19 AM EST 08/08/2024 7:50 AM EST us Michelle Rucker MD LAB BLOOD ORDERABLES Fin al Result [facility] [address] [place] [address], documented in this encounter Visit Diagnoses Diagnosis Hyperlipidemia, unspecified documented in this encounter Additional Health Concerns Infection Onset Date Last Indicated Resolved Time C. difficile Rule-Out 08/14/2024 08/13/20242024 11:06 AM EST MDRO (other) 12/15/2024 12/15/2024 documented as of this encounter Care Teams Audiovisual Equipment Operator Relationship Specialty Start Date End Date Michelle Rucker MD [address] [place] [address] PCP - General Family Medicine 05/06/24 documented as of this encounter
--- OUTSIDE RECORDS SUMMARY | 2025-04-30 12:17 | XMS_ITS | Encounter Summary ---
Author Organization [facility] Address [address] [place] [phone] Care Team Providers Care Chemical Inspector Name Role Phone Michelle Rucker MD Primary Care Provider + Encounter Details Date Type Department Care Team (Late st Contact Info) Description 09/25/2024 Lab Requisition [facility] - Main Lab 299 [facility] [place] [address] Michelle Rucker MD [address] [place] [phone] Malignant (primary) neoplasm, unspecified (CMS/HCC V24, CMS/HCC [...] documented as of this encounter Care Teams Chemical Inspector Relationship Specialty Start Date End Date Michelle Rucker MD [address] [place] [phone] PCP - General Family Medicine 05/06/24 documented as of this encounter
--- OUTSIDE RECORDS SUMMARY | 2025-04-30 12:17 | XMS_ITS | Encounter Summary ---
Author Organization [facility] Address [address] [place] [phone] Care Team Providers Care Stock Manager Name Role Phone Michelle Rucker MD Primary Care Provider + Encounter Details Date Type Department Care Team (Late st Contact Info) Description 07/30/2024 Lab Requisition [facility] - Main Lab 299 [facility] [place] [address] Michelle Rucker MD [address] [phone] Kidney transplant status; Malignant (primary) neoplasm, unspecified [...] documented as of this encounter Care Teams Stock Manager Relationship Specialty Start Date End Date Michelle Rucker MD [address] [phone] PCP - General Family Medicine 05/06/24 documented as of this encounter
--- OUTSIDE RECORDS SUMMARY | 2025-04-30 12:17 | XMS_ITS | Encounter Summary ---
Author Organization [facility] Address [address] [place] [phone] Care Team Providers Care Infection Prevention Specialist Name Role Phone Michelle Rucker MD Primary Care Provider + Encounter Details Date Type Department Care Team (Late st Contact Info) Description 08/13/2024 Lab Requisition [facility] - Main Lab 299 [place] [address] Michelle Rucker MD [address] [phone] Vitamin D deficiency, unspecified; Malignant (primary) neoplasm, [...] LAB CHEMISTRY METHOD 08/14/2024 10:39 AM [facility] Potassium 4.4 3.5 - 5.5 mmol/L LAB CHEMISTRY METHOD 08/14/2024 10:39 AM [facility] Chloride 94(L) 96 - 110 mmol/L LAB CHEMISTRY METHOD 08/14/2024 10:39 AM [facility] CO2 30 21 - 32 mmol/L LAB CHEMISTRY METHOD 08/14/2024 10:39 AM [facility] Anion Gap 6 3 - 11 LAB CHEMISTRY METHOD 08/14/2024 10:39 AM [facility] Glucose 277(H) 70 - 100 mg/dL LAB CHEMISTRY METHOD 08/14/2024 10:39 AM [facility] BUN 34(H) 5 - 25 mg/dL LAB CHEMISTRY METHOD 08/14/2024 10:39 AM [facility] Creatinine 1.45(H) 0.70 - 1.30 mg/dL LAB CHEMISTRY METHOD 08/14/2024 10:39 AM [facility] eGFR 53(L) >=60 mL/min/1. 73m2 LAB CHEMISTRY METHOD 08/14/2024 10:39 AM [facility] Comment:Calculation based on the Chronic Kidney Disease Epidemiology Collaboration (CKD-EPI) equation refit without adjustment for race. BUN/Creatinine Ratio 23.4 LAB CHEMISTRY METHOD 08/14/2024 10:39 AM [facility] Calcium 9.8 8.5 - 10.5 mg/dL LAB CHEMISTRY METHOD 08/14/2024 10:39 AM [facility] Blood Venous blood specimen / Unknown Venipuncture / Unknown 08/14/2024 7:21 AM EST 08/14/2024 8:35 AM EST us Michelle Rucker MD LAB BLOOD ORDERABLES Fin al Result [facility] 299 [place] [address], * (ABNORMAL) Complete blood count (08/14/2024 7:21 AM EST) [facility] WBC 12.8(H) 4.8 - 10.8 K/mcL LAB HEMETOLOGY METHOD 08/14/2024 9:50 AM [facility] RBC 4.00(L) 4.50 - 5.50 M/mcL LAB HEMETOLOGY METHOD 08/14/2024 9:50 AM [facility] Hemoglobin 10.3(L) 13.5 - 17.5 g/dL LAB HEMETOLOGY METHOD 08/14/2024 9:50 AM [facility] Hematocrit 33.3(L) 42.0 - 54.0 % LAB HEMETOLOGY METHOD 08/14/2024 9:50 AM [facility] MCV 84.1 79.0 - 98.0 FL LAB HEMETOLOGY METHOD 08/14/2024 9:50 AM [facility] MCH 26.0(L) 27.0 - 32.0 pcg LAB HEMETOLOGY METHOD 08/14/2024 9:50 AM [facility] MCHC 30.9(L) 32.0 - 37.0 g/dL LAB HEMETOLOGY METHOD 08/14/2024 9:50 AM [facility] RDW 14.9 11.0 - 15.0 % LAB HEMETOLOGY METHOD 08/14/2024 9:50 AM [facility] Platelets 373 130 - 400 K/mcL LAB HEMETOLOGY METHOD 08/14/2024 9:50 AM [facility] MPV 10.4 7.0 - 11.0 FL LAB HEMETOLOGY METHOD 08/14/2024 9:50 AM [facility] NRBC 0.0 [...] al Result [facility] 299 [place] [address], documented in this encounter Visit Diagnoses Diagnosis Vitamin D deficiency, unspecified Malignant (primary) neoplasm, unspecified (CMS/HCC V24, CMS/HCC V28) Kidney transplant status documented in this encounter Additional Health Concerns Infection Onset Date Last Indicated Resolved Time C. difficile Rule-Out 08/14/2024 08/13/20242024 11:06 AM EST MDRO (other) 12/15/2024 12/15/2024 documented as of this encounter Care Teams Infection Prevention Specialist Relationship Specialty Start Date End Date Michelle Rucker MD [address] [place] [phone] PCP - General Family Medicine 05/06/24 documented as of this encounter
--- OUTSIDE RECORDS SUMMARY | 2025-04-30 12:17 | XMS_ITS | Encounter Summary ---
Author Organization [facility] Address [address] [place] [phone] Care Team Providers Care Top Lift Compressor Name Role Phone Michelle Rucker MD Primary Care Provider + Encounter Details Date Type Department Care Team (Late st Contact Info) Description 08/13/2024 Lab Requisition [facility] - Main Lab 299 [place] [address] Michelle Rucker MD [address] [phone] Urinary tract infection, site not specified Social [...] reflex microscopic (08/12/2024 10:00 PM EST) Specific [place] Urine 1.009 1.003 - 1.030 LAB URINALYSIS [...] - AUTOMATED METHOD 08/13/2024 12:01 PM EST [facility] Hyaline Casts, Urine 3.0 0 - 3 /LPF LAB URINALYSIS - AUTOMATED METHOD 08/13/2024 12:01 PM EST [facility] Yeast, Urine 3+(A) None /HPF 08/13/2024 12:01 PM EST [facility] Comment:This is an appended report. These results have been appended to a previously final verified report. Urine Urine specimen from urethra / Unknown 08/12/2024 10:00 PM EST 08/13/2024 11:23 AM EST Michelle Rucker MD LAB URINE ORDERABLES Cristian michael Result - Final Performing Organization Address [facility]/ZIP Co de Phone Number [facility] 299 [place] [address], [place] [phone] * (ABNORMAL) Culture urine (08/12/2024 10:00 PM EST) Culture, Urine 50,000-100, 000 CFU/mL Yolande albicans/du bliniensis( A) 08/15/2024 1:21 PM EST [facility] Comment: Edited result: Previously reported as Yeast on 08/14/2024 at 1054 EST. Urine Urine specimen from urethra / Unknown 08/12/2024 10:00 PM EST 08/13/2024 11:23 AM EST Michelle Rucker MD LAB MICROBIOLOGY - GENER AL ORDERABLES Final Result [facility] 299 [place] [address], [place] [phone] documented in this encounter Visit Diagnoses Diagnosis Urinary tract infection, site not specified documented in this encounter Additional Health Concerns Infection Onset Date Last Indicated Resolved Time C. difficile Rule-Out 08/14/2024 08/13/20242024 11:06 AM EST MDRO (other) 12/15/2024 12/15/2024 documented as of this encounter Care Teams Top Lift Compressor Relationship Specialty Start Date End Date Michelle Rucker MD [address] [address] PCP - General Family Medicine 05/06/24 documented as of this encounter
--- OUTSIDE RECORDS SUMMARY | 2025-04-30 12:17 | XMS_ITS | Encounter Summary ---
Author Organization [facility] Address [address] [address] Phone Care Team Providers Care Cutting And Boning Supervisor Name Role Phone Tennille Linton NP Primary Care Provider + Encounter Details Date Type Department Care Team (Late st Contact Info) Description 12/01/2024 Documentation Only [facility], [address] [place] [address] [place] [address] [place] [phone] Social History Tobacco Use Types Packs/Day [...] Visit [facility] [address] [place] [place] [address] Andrey Phan MD [address] [place] [address] documented as of this encounter Visit Diagnoses Not on filedocumented in this encounter Care Teams Cutting And Boning Supervisor Relationship Specialty Start Date End Date Tennille Linton NP [address] [place] [phone] PCP - General Nurse Practitioner 08/07/23 documented as of this encounter
--- OUTSIDE RECORDS SUMMARY | 2025-04-30 12:17 | XMS_ITS | Encounter Summary ---
Author Organization [facility] Address [address] [place] [phone] Care Team Providers Care Java Lead Engineer Name Role Phone Michelle Rucker MD Primary Care Provider + Encounter Details Date Type Department Care Team (Late st Contact Info) Description 07/21/[address] [facility] - Main Lab 299 [facility] [place] [address] Michelle Rucker MD [address] [phone] Vitamin D deficiency, unspecified; Type 1 diabetes [...] documented as of this encounter Care Teams Java Lead Engineer Relationship Specialty Start Date End Date Michelle Rucker MD [address] [address] PCP - General Family Medicine 05/06/24 documented as of this encounter
--- OUTSIDE RECORDS SUMMARY | 2025-04-30 12:17 | XMS_ITS | Encounter Summary ---
Author Organization [facility] Address [address] [place] [phone] Care Team Providers Care It Architect Name Role Phone Michelle Rucker MD Primary Care Provider + Encounter Details Date Type Department Care Team (Late st Contact Info) Description 10/24/2024 Lab Requisition [facility] - Main Lab 299 [facility] [place] [address] Michelle Rucker MD [address] [address] Kidney transplant status Social History Tobacco Use [...] as of this encounter Care Teams It Architect Relationship Specialty Start Date End Date Michelle Rucker MD [address] [place] [address] PCP - General Family Medicine 05/06/24 documented as of this encounter
--- OUTSIDE RECORDS SUMMARY | 2025-04-30 12:17 | XMS_ITS | Encounter Summary ---
Author Organization [facility] Address [address] [place] [address] Care Team Providers Care Application Specialist Name Role Phone Michelle Rucker MD Primary Care Provider + Encounter Details Date Type Department Care Team (Late st Contact Info) Description 08/14/2024 Lab Requisition [facility] - Main Lab 299 [place] [address] Michelle Rucker MD [address] [phone] Diarrhea, unspecified Social History Tobacco Use Types [...] Antigen Negative Negative 08/14/2024 11:06 AM EST [facility] C difficile Toxins A+B, EIA Negative Negative 08/14/2024 11:06 AM EST [facility] Comment:NEGATIVE FOR TOXIN P RODUCING CLOSTRIDIOIDES DIFFICILE, NO ADDITIONAL TESTING IS NECESSARY. Stool Rectum structure / Unknown 08/13/2024 5:00 PM EST 08/14/2024 9:36 AM EST us Michelle Rucker MD LAB MICROBIOLOGY - GENER AL ORDERABLES Final Result [facility] 299 [place] [address], documented in this encounter Visit Diagnoses Diagnosis Diarrhea, unspecified documented in this encounter Additional Health Concerns Infection Onset Date Last Indicated Resolved Time C. difficile Rule-Out 08/14/2024 08/13/20242024 11:06 AM EST MDRO (other) 12/15/2024 12/15/2024 documented as of this encounter Care Teams Application Specialist Relationship Specialty Start Date End Date Michelle Rucker MD [address] [place] [phone] PCP - General Family Medicine 05/06/24 documented as of this encounter
--- OUTSIDE RECORDS SUMMARY | 2025-04-30 12:18 | XMS_ITS | Encounter Summary ---
Author Organization [facility] Address [address] [place] [phone] Care Team Providers Care Soubrette Name Role Phone Michelle Rucker MD Primary Care Provider + Encounter Details Date Type Department Care Team (Late st Contact Info) Description 10/30/2024 Lab Requisition [facility] - Main Lab 299 [facility] [place] [address] Michelle Rucker MD [address] [phone] Chronic kidney disease, stage 4 (severe) (CMS/HCC [...] mmol/L LAB CHEMISTRY METHOD 10/30/2024 9:54 AM [facility] Potassium 4.6 3.5 - 5.5 mmol/L LAB CHEMISTRY METHOD 10/30/2024 9:54 AM [facility] Chloride 110 96 - 110 mmol/L LAB CHEMISTRY METHOD 10/30/2024 9:54 AM [facility] CO2 26 21 - 32 mmol/L LAB CHEMISTRY METHOD 10/30/2024 9:54 AM [facility] Anion Gap 5 3 - 11 LAB CHEMISTRY METHOD 10/30/2024 9:54 AM [facility] Glucose 114(H) 70 - 100 mg/dL LAB CHEMISTRY METHOD 10/30/2024 9:54 AM [facility] BUN 30(H) 5 - 25 mg/dL LAB CHEMISTRY METHOD 10/30/2024 9:54 AM [facility] Creatinine 1.95(H) 0.70 - 1.30 mg/dL LAB CHEMISTRY METHOD 10/30/2024 9:54 AM [facility] eGFR 37(L) >=60 mL/min/1. 73m2 LAB CHEMISTRY METHOD 10/30/2024 9:54 AM [facility] Comment:Calculation based on the Chronic Kidney Disease Epidemiology Collaboration (CKD-EPI) equation refit without adjustment for race. BUN/Creatinine Ratio 15.4 LAB CHEMISTRY METHOD 10/30/2024 9:54 AM [facility] Calcium 9.1 8.5 - 10.5 mg/dL LAB CHEMISTRY METHOD 10/30/2024 9:54 AM [facility] Blood Venous blood specimen / Unknown Venipuncture / Unknown 10/30/2024 7:43 AM EDT 10/30/2024 9:16 AM EDT us Michelle Rucker MD LAB BLOOD ORDERABLES Fin al Result [facility] 299 [place] [address], * Tacrolimus level (10/30/2024 7:43 AM EDT) Tacrolimus Level 7.3 5.0 - 20.0 ng/mL 11/02/2024 9:20 AM EDT [facility] Comment: Additional Information: Toxic Level > [...] for research. Test performed at [facility], [address] , [place] [address] Brittanie Horan MD, PhD - Lapidary Apprentice Blood Venous blood specimen / Unknown Venipuncture / Unknown 10/30/2024 7:43 AM EDT 10/30/2024 9:16 AM EDT Michelle Rucker MD LAB BLOOD ORDERABLES Fin al Result [facility] [address] [place] [address] documented in this encounter Visit Diagnoses Diagnosis Chronic kidney disease, stage 4 (severe) (CMS/HCC V24, CMS/HCC V28) documented in this encounter Additional Health Concerns Infection Onset Date Last Indicated Resolved Time MDRO (other) 12/15/2024 12/15/2024 documented as of this encounter Care Teams Soubrette Relationship Specialty Start Date End Date Michelle Rucker MD [address] [phone] PCP - General Family Medicine 05/06/24 documented as of this encounter
--- OUTSIDE RECORDS SUMMARY | 2025-04-30 12:18 | XMS_ITS | Clinical Summary ---
Author Organization [address] Address [address] [place] [address] Phone Care Team Providers Care Director Of Application Development Name Role Phone Elder, Michelle Alonso MD [...] EDT Chronic kidney disease, stage 4 (severe) ([facility]/HCC V24, CMS/HCC V28) HEMOGLOBIN A1C Routine 10/02/2024 6:50 AM EDT Immunodeficiency, unspecified ([facility] V24) MICROALBUMIN CREATININE URINE RATIO Routine 10/01/2024 1:45 PM EDT Acute kidney failure, unspecified (CMS/HCC V24) Other acute kidney failure (CMS/[facility] V24) from Last 3 Months or Most Recently Relevant to Health Maintenance Results * (ABNORMAL) Basic metabolic panel (10/30/2024 7:43 AM EDT) Sodium 141 133 - 145 mmol/L LAB CHEMISTRY METHOD 10/30/2024 9:54 AM [facility] Potassium 4.6 3.5 - 5.5 mmol/L LAB CHEMISTRY METHOD 10/30/2024 9:54 AM [facility] Chloride 110 96 - 110 mmol/L LAB CHEMISTRY METHOD 10/30/2024 9:54 AM [facility] CO2 26 21 - 32 mmol/L LAB CHEMISTRY METHOD 10/30/2024 9:54 AM [facility] Anion Gap 5 3 - 11 LAB CHEMISTRY METHOD 10/30/2024 9:54 AM [facility] Glucose 114(H) 70 - 100 mg/dL LAB CHEMISTRY METHOD 10/30/2024 9:54 AM [facility] BUN 30(H) 5 - 25 mg/dL LAB CHEMISTRY METHOD 10/30/2024 9:54 AM [facility] Creatinine 1.95(H) 0.70 - 1.30 mg/dL LAB CHEMISTRY METHOD 10/30/2024 9:54 AM [facility] eGFR 37(L) >=60 mL/min/1. 73m2 LAB CHEMISTRY METHOD 10/30/2024 9:54 AM [facility] Comment:Calculation based on the Chronic Kidney Disease Epidemiology Collaboration (CKD-EPI) equation refit without adjustment for race. BUN/Creatinine Ratio 15.4 LAB CHEMISTRY METHOD 10/30/2024 9:54 AM [facility] Calcium 9.1 8.5 - 10.5 mg/dL LAB CHEMISTRY METHOD 10/30/2024 9:54 AM [facility] Blood Venous blood specimen / Unknown Venipuncture / Unknown 10/30/2024 7:43 AM EDT 10/30/2024 9:16 AM EDT Michelle Rucker MD LAB BLOOD ORDERABLES Fin al Result Performing Organization Address [facility]/ZIP Co de Phone Number [facility] 299 [place] [address], [place] [phone] * (ABNORMAL) Hemoglobin A1c (10/02/2024 6:50 AM [...] ORDERABLES Fin al Result Performing Organization Address City/[facility]/ZIP Co de Phone Number [facility] [address] [place] [address], [place] [phone] * (ABNORMAL) Microalbumin creatinine urine ratio (10/01/2024 [...] LAB URINE ORDERABLES Fin al Result [facility] ([facility]) [facility] 299 [place] [address], from Last 3 Months or Most Recently Relevant to Health Maintenance Additional Health Concerns Infection Onset Date Last Indicated MDRO (other) 12/15/2024 12/15/2024 Insurance [employer] Member Subscriber Plan / Payer (Ef fective 2016-Present) Name:HARVEY LAW Relation to Subscriber:Self Name:Harvey Law Payer ID:[id number] Group ID:[id number] Type:Not on file Address: [place] [address] [address] [address] Care Teams Director Of Application Development Relationship Specialty Start Date End Date Michelle Rucker MD [address] [address] PCP - General Family Medicine 05/06/24
--- OUTSIDE RECORDS SUMMARY | 2025-04-30 12:18 | XMS_ITS | Encounter Summary ---
Author Organization [facility] Address [address] [place] [address] Care Team Providers Care Senior Technical Support Engineer Name Role Phone Michelle Rucker MD Primary Care Provider + Encounter Details Date Type Department Care Team (Late st Contact Info) Description 10/29/2024 Lab Requisition [facility] - Main Lab 299 [place] [address] Michelle Rucker MD [address] [phone] Weakness Social History Tobacco Use Types Packs/Day [...] mmol/L LAB CHEMISTRY METHOD 10/29/2024 11:00 AM [facility] CO2 27 21 - 32 mmol/L LAB CHEMISTRY METHOD 10/29/2024 11:00 AM [facility] Anion Gap 7 3 - 11 LAB CHEMISTRY METHOD 10/29/2024 11:00 AM [facility] Glucose 154(H) 70 - 100 mg/dL LAB CHEMISTRY METHOD 10/29/2024 11:00 AM [facility] BUN 34(H) 5 - 25 mg/dL LAB CHEMISTRY METHOD 10/29/2024 11:00 AM [facility] Creatinine 2.16(H) 0.70 - 1.30 mg/dL LAB CHEMISTRY METHOD 10/29/2024 11:00 AM [facility] eGFR 33(L) >=60 mL/min/1. 73m2 LAB CHEMISTRY METHOD 10/29/2024 11:00 AM [facility] Comment:Calculation based on the Chronic Kidney Disease Epidemiology Collaboration (CKD-EPI) equation refit without adjustment for race. BUN/Creatinine Ratio 15.7 LAB CHEMISTRY METHOD 10/29/2024 11:00 AM [facility] Calcium 9.1 8.5 - 10.5 mg/dL LAB CHEMISTRY METHOD 10/29/2024 11:00 AM [facility] AST (SGOT) 14 10 - 42 unit/L LAB CHEMISTRY METHOD 10/29/2024 11:00 AM [facility] ALT (SGPT) 11 10 - 60 unit/L LAB CHEMISTRY METHOD 10/29/2024 11:00 AM [facility] Alkaline Phosphatase 58 42 - 121 unit/L LAB CHEMISTRY METHOD 10/29/2024 11:00 AM [facility] Total Protein 6.6 6.0 - 8.0 g/dL LAB CHEMISTRY METHOD 10/29/2024 11:00 AM [facility] Albumin 2.7(L) 3.2 - 5.0 g/dL LAB CHEMISTRY METHOD 10/29/2024 11:00 AM [facility] Total Bilirubin 0.7 0.0 - 1.4 mg/dL LAB CHEMISTRY METHOD 10/29/2024 11:00 AM [facility] Blood Venous blood specimen / Unknown Venipuncture / Unknown 10/29/2024 7:50 AM EDT 10/29/2024 9:52 AM EDT us Michelle Rucker MD LAB BLOOD ORDERABLES Fin al Result [facility] [address] [place] [address], * (ABNORMAL) Complete blood count (10/29/2024 7:50 AM EDT) WBC 6.6 4.8 - 10.8 K/mcL LAB HEMETOLOGY METHOD 10/29/2024 10:17 AM [facility] RBC 4.40(L) 4.50 - 5.50 M/mcL LAB HEMETOLOGY METHOD 10/29/2024 10:17 AM [facility] Hemoglobin 10.7(L) 13.5 - 17.5 g/dL LAB HEMETOLOGY METHOD 10/29/2024 10:17 AM [facility] Hematocrit 35.0(L) 42.0 - 54.0 % LAB HEMETOLOGY METHOD 10/29/2024 10:17 AM [facility] MCV 79.0 79.0 - 98.0 FL LAB HEMETOLOGY METHOD 10/29/2024 10:17 AM [facility] MCH 24.2(L) 27.0 - 32.0 pcg LAB HEMETOLOGY METHOD 10/29/2024 10:17 AM [facility] MCHC 30.6(L) 32.0 - 37.0 [...] al Result [facility] [address] [place] [address], documented in this encounter Visit Diagnoses Diagnosis Weakness Other malaise and fatigue documented in this encounter Additional Health Concerns Infection Onset Date Last Indicated Resolved Time MDRO (other) 12/15/2024 12/15/2024 documented as of this encounter Care Teams Senior Technical Support Engineer Relationship Specialty Start Date End Date Michelle Rucker MD [address] [place] [phone] PCP - General Family Medicine 05/06/24 documented as of this encounter
--- OUTSIDE RECORDS SUMMARY | 2025-04-30 12:18 | XMS_ITS | Encounter Summary ---
Author Organization [facility] Address [address] [place] [address] Care Team Providers Care Commercial Artist Lettering Name Role Phone Elder, Michelle Alonso MD Primary Care Provider + Encounter Details Date Type Department Care Team (Late st Contact Info) Description 11/09/2024 Lab Requisition [facility] - Main Lab [address] [facility] [place] [address] Román Betancur MD [address] [place] [address] Urinary tract infection, site not [...] albicans/du bliniensis( A) 11/11/2024 9:02 AM EDT [facility] LAB Comment: Edited result: Previously reported as Yeast on 11/10/2024 at 1409 EDT. Urine Urine specimen obtained by clean catch procedure / Unknown 11/09/2024 1:00 PM EDT 11/09/2024 6:27 PM EDT us Román Betancur MD LAB MICROBIOLOGY - GENERAL ORD ERABLES Final Result [facility] ([facility] [address] [place] [address], documented in this encounter Visit Diagnoses Diagnosis Urinary tract infection, site not specified documented in this encounter Additional Health Concerns Infection Onset Date Last Indicated Resolved Time MDRO (other) 12/15/2024 12/15/2024 documented as of this encounter Care Teams Commercial Artist Lettering Relationship Specialty Start Date End Date Michelle Rucker MD [address] [place] [phone] PCP - General Family Medicine 05/06/24 documented as of this encounter
--- OUTSIDE RECORDS SUMMARY | 2025-04-30 12:18 | XMS_ITS | Encounter Summary ---
Author Organization [facility] Address [address] [place] [address] [place] [phone] Phone Care Team Providers Care Screen Printing Stencil Preparer Name Role Phone Tennille Linton NP Primary Care Provider + Anni Quiñonez PA Unavailable [phone] Encounter Details Date Type Department Care Team (Late st Contact Info) Description 03/02/2025 Procedure [facility] Door Worker [place] [address] [place] [address] Social History Tobacco Use Types Packs/Day Years [...] Description 05/18/2025 1:00 PM EST Office Visit [facility] [address] [facility] [address] [address] Daisy Diaz MD, MPH [address] [place] [address] [address], [place] [address] [email or web address] Scheduled Procedures Name Priority Associated Diagnoses Date/Ti me ROBOTIC LAPAROSCOPIC PROSTAT ECTOMY RADICAL Malignant neoplasm of prostate documented as of this encounter Visit Diagnoses Not on filedocumented in this encounter Care Teams Screen Printing Stencil Preparer Relationship Specialty Start Date End Date Tennille Linton NP [address] [place] [phone] PCP - General Nurse Practitioner 08/30/23 Anni Quiñonez PA [address] [place] [phone] [email or web address] Pss Delivery Professional 08/30/23 shana myers [facility] Journeyman Electrician Pv Installer Cardiology 03/12/24 documented as of this encounter Additional Source Comments The information contained in this document represents components of the legal health record. It is not the complete legal health record.[facility]
[2025-05-01 10:48] LABS: Tacrolimus Prograf 5.4 mcg/L
== END 2025-04-30 10:23 | disposition home or self-care (01) ==
LOC: HO.HVNA 10:22
PROVIDERS: Visit Provider Internal Medicine Nephrology
DX: Z51.81 Encounter for therapeutic drug level monitoring (principal); I13.0 Hypertensive heart and chronic kidney disease with heart failure and stage 1 through stage 4 chronic kidney disease, or unspecified chronic kidney disease; I50.9 Heart failure, unspecified; E10.22 Type 1 diabetes mellitus with diabetic chronic kidney disease; N18.9 Chronic kidney disease, unspecified; Z79.621 Long term (current) use of calcineurin inhibitor
CPT/HCPCS: 36415; 80051; 80197; 82310; 82550; 82565; 82728; 83036; 83540; 83970; 84450; 84460; 84520; 85025